=== PATIENT | female | born 1945 | race Caucasian/White ===

== ENCOUNTER → 2017-06-11 08:03 | Outpatient (CLI) | payer MEDICARE, OTHER, SELFPAY ==
[2017-05-22 10:12] VITALS: BP 110/60; BMI 32.5
--- NOTE | 2017-06-11 08:07 | ECHOD_ITS ---
Reason For Study: Valve Replacement Eval Procedure This was a 2D Doppler, Color Flow transthoracic echocardiogram. Exam performed in department. Left Ventricle Normal LV size. Left ventricular systolic function is normal. The estimated ejection fraction is 60 %. Transmitral diastolic flow velocities suggest mild (stage 1) diastolic dysfunction (reversed pattern). No regional wall motion abnormalities noted. Right Ventricle Normal RV size. Normal systolic function. Atria Normal left atrium. Normal right atrium. Mitral Valve Normal mitral valve. Mild (1+) eccentric mitral valve insufficiency. Tricuspid Valve Normal tricuspid valve. Mild (1+) tricuspid valve insufficiency. Pulmonary artery systolic pressure is 27 mmHg. Aortic Valve Peak aortic valve gradient 29 mmHg. Mean aortic valve gradient 15 mmHg. Mild aortic stenosis. Calculated aortic valve area (continuity equation) is 1.7 cm2. Bioprosthetic aortic valve. Stable appearing bioprosthetic aortic valve apparatus. Great Vessels Mildly dilated aortic root. The pulmonary artery is normal size. MMode/2D Measurements & Calculations LVIDd: 5.8 cm IVSd: 1.3 cm LVOT diam: 2.1 cm LVIDs: 3.5 cm LVPWd: 1.1 cm LVOT area: 3.6 cm2 RVDd: 2.6 cm FS: 39.6 % Ao root diam: 3.6 cm LAV(MOD-bp): 49.6 ml LA A4 area: 17.1 cm2 LA dimension: 4.3 cm LAV(MOD-bp) Indexed: 25.4 ml/m2 LAV(MOD-sp2): 48.5 ml LAV(MOD-sp4): 43.3 ml RA A4 area: 12.4 cm2 Doppler Measurements & Calculations MV E max philipp: 94.0 cm/sec Lat Peak E' Philipp: 7.3 cm/sec Med Peak E' Philipp: 4.6 cm/sec MV A max philipp: 104.2 cm/sec E/E' lat: 12.9 E/E' med: 20.5 MV E/A: 0.90 Ao V2 max: 270.1 cm/sec LV V1 max: 121.4 cm/sec SV(LVOT): 111.3 ml Ao max P.2 mmHg LV V1 max P.9 mmHg Ao V2 mean: 185.8 cm/sec LV V1 mean P.5 mmHg Ao mean P.5 mmHg LV V1 mean: 88.7 cm/sec Ao V2 VTI: 63.7 cm LV V1 VTI: 30.7 cm MATTHEW(I,D): 1.7 cm2 MATTHEW(V,D): 1.6 cm2 PA V2 max: 97.8 cm/sec TR max philipp: 238.1 cm/sec TR max P.7 mmHg Interpretation Summary Normal LV size. Left ventricular systolic function is normal. The estimated ejection fraction is 60 %. Transmitral diastolic flow velocities suggest mild (stage 1) diastolic dysfunction (reversed pattern). Mildly dilated aortic root. Stable appearing bioprosthetic aortic valve apparatus. Mild aortic stenosis. Ordering Physician: Angel Fairchild Referring Physician: Neel Ochoa Performed By: Eileen Roth, GUSTAVO, RVT
== END ==
PROVIDERS: Family Provider Family Medicine; PCP Family Medicine; Visit Provider Internal Medicine Cardiovascular Disease
DX: I34.2 Nonrheumatic mitral (valve) stenosis (principal)
CPT/HCPCS: 93306

== ENCOUNTER → 2017-07-18 12:51 | Outpatient (CLI) | payer MEDICARE, OTHER, SELFPAY ==
[2017-07-18 13:18] LABS: Absolute Lymphocyte Count 2.56 X10^3/ul (0.83-4.51); Absolute Neutrophil Count 3.4 X10^3/uL (2.0-7.7); Basophil# 0.02 X10^3/uL; Basophil% 0.3 % (0-1); Eosinophil# 0.26 X10^3/uL; Eosinophils% 3.9 % (0-5); Hematocrit 40.7 % (37-47); Hemoglobin 13.3 g/dl (12.0-15.0); Lymphocyte # 2.56 X10^3/ul (4.0); Lymphocyte % 38.4 % (19-41); Mean Corp Hgb Conc 32.7 g/gl (32-36); Mean Corpuscular Hgb 29.9 pg (27.0-32.0); Mean Corpuscular Volume 91.5 fL (81-99); Neutrophil # 3.41 X10^3/uL (2.7-7.7); Neutrophil % 51.2 % (47-70); Platelet Count 222 K/mm3 (150-450); RBC Distribution Width CV 13.4 % (11.6-14.6); RBC Distribution Width SD 44.5 fl (35.1-43.9); Red Blood Count 4.45 M/mm3 (4.2-5.4); White Blood Count 6.7 K/mm3 (4.4-11.0)
[2017-07-18 13:19] LABS: POSITIVE COUNT NO; POSITIVE DIFFERENTIAL NO; POSITIVE MORPHOLOGY NO
[2017-07-18 13:59] LABS: ALB/GLOB Ratio 0.9 RATIO (0.9-2.4); AST(SGOT) 54 U/L (15-37); Alanine Aminotransfer ALT/SGPT 61 U/L (13-56); Albumin, Serum 3.7 g/dL (3.2-5.0); Alkaline Phosphatase 76 U/L (45-117); Anion Gap 7 (5-15); BUN 10 mg/dL (7-18); BUN/Creat Ratio 15.3 RATIO (10-20); Calcium,Total 8.6 mg/dL (8.5-10.1); Chloride 105 mmol/L (98-107); Cholesterol 213 mg/dL (200); Creatinine, Serum 0.65 mg/dL (0.55-1.02); EST Glomerular Filtration Rate 94 mL/min (>60); Est Glom Filt Rate - Afr Amer 114 mL/min (>60); Globulin 3.9 g/dL (2.2-4.2); Glucose 85 mg/dL (74-106); High Density Lipoprotein 44 mg/dL; Protein, Total 7.6 g/dL (6.4-8.2); Sodium Level 141 mmol/L (136-145); Thyroid Stim Hormone (TSH) 2.67 uIU/mL (0.358-3.74); Triglycerides 190 mg/dL; Very Low Density Lipoprotein 38 mg/dL (5-40)
[2017-07-18 14:34] LABS: Vitamin D,25 Hydroxy 47.3 ng/mL (29.95-100.01)
[2017-07-18 14:35] LABS: Vitamin B12 708 pg/mL (211-911)
== END ==
PROVIDERS: Family Provider Family Medicine; PCP Family Medicine; Visit Provider Internal Medicine Endocrinology, Diabetes & Metabolism
DX: E03.8 Other specified hypothyroidism (principal); E78.2 Mixed hyperlipidemia; E55.9 Vitamin D deficiency, unspecified; E53.8 Deficiency of other specified B group vitamins; E06.3 Autoimmune thyroiditis; R53.83 Other fatigue
CPT/HCPCS: 36415; 80053; 80061; 82306; 82607; 84443; 85025

== ENCOUNTER → 2017-10-29 05:33 | Outpatient (CLI) | payer MEDICARE, OTHER, SELFPAY ==
--- NOTE | 2017-10-29 09:03 | STRESSREP ---
Stress Test Report Pharmacologic myocardial perfusion stress test. 72-year-old lady with a history of valvular heart disease and coronary artery disease. Stress protocol: Resting EKG demonstrates sinus bradycardia with a rate of 54 bpm normal intervals and noted resting blood pressure is 128/70 mmHg. 0.4 mg of regadenoson was infused per usual protocol followed by rapid intravenous saline flush injection continuous EKG monitoring was performed. The maximum heart rate attained was 90 bpm which was 61% of maximum predicted heart rate the maximum workload was 1 metabolic equivalent. At rest there were no ST or T-wave changes noted suggest abnormal flow reserve at peak infusion no ST or T-wave changes were noted to suggest abnormal flow reserve. Resting blood pressure is 128/70 with a final blood pressure 144/70. Myocardial perfusion protocol. 11.4 mCi of technetium 99m sestamibi was injected at rest. 0.4 mg regadenoson was infused per usual protocol. At peak infusion 34.3 mCi of technetium 99m sestamibi was injected stress images were obtained stress and rest images were reconstructed and compared in the short axis vertical long and horizontal long axis. Gated images were also obtained pre- Perfusion SPECT analysis: Review of the stress images demonstrate normal uptake of tracer noted in all areas of the myocardium. The resting images similarly demonstrate normal uptake of tracer noted in all areas of the myocardium. No areas of reversibility are noted suggest ischemia. Gated SPECT analysis: The gated ejection fraction is 68%. Conclusion: Normal pharmacologic myocardial perfusion stress test. Preserved ejection fraction.
--- NOTE | 2017-10-29 09:06 | STRESSREP_ITS ---
Stress Test Report Pharmacologic myocardial perfusion stress test. 72-year-old lady with a history of valvular heart disease and coronary artery disease. Stress protocol: Resting EKG demonstrates sinus bradycardia with a rate of 54 bpm normal intervals and noted resting blood pressure is 128/70 mmHg. 0.4 mg of regadenoson was infused per usual protocol followed by rapid intravenous saline flush injection continuous EKG monitoring was performed. The maximum heart rate attained was 90 bpm which was 61% of maximum predicted heart rate the maximum workload was 1 metabolic equivalent. At rest there were no ST or T- wave changes noted suggest abnormal flow reserve at peak infusion no ST or T- wave changes were noted to suggest abnormal flow reserve. Resting blood pressure is 128/70 with a final blood pressure 144/70. Myocardial perfusion protocol. 11.4 mCi of technetium 99m sestamibi was injected at rest. 0.4 mg regadenoson was infused per usual protocol. At peak infusion 34.3 mCi of technetium 99m sestamibi was injected stress images were obtained stress and rest images were reconstructed and compared in the short axis vertical long and horizontal long axis. Gated images were also obtained pre- Perfusion SPECT analysis: Review of the stress images demonstrate normal uptake of tracer noted in all areas of the myocardium. The resting images similarly demonstrate normal uptake of tracer noted in all areas of the myocardium. No areas of reversibility are noted suggest ischemia. Gated SPECT analysis: The gated ejection fraction is 68%. Conclusion: Normal pharmacologic myocardial perfusion stress test. Preserved ejection fraction.
== END ==
PROVIDERS: Family Provider Family Medicine; PCP Family Medicine; Visit Provider Internal Medicine Cardiovascular Disease
DX: R07.9 Chest pain, unspecified (principal); E78.5 Hyperlipidemia, unspecified; I34.2 Nonrheumatic mitral (valve) stenosis; I35.2 Nonrheumatic aortic (valve) stenosis with insufficiency; Z95.2 Presence of prosthetic heart valve; G47.33 Obstructive sleep apnea (adult) (pediatric)
CPT/HCPCS: 78452; 93017; A9500; A4216; J2785

== ENCOUNTER → 2018-01-26 13:15 | Outpatient (CLI) | payer MEDICARE, OTHER, SELFPAY ==
[2018-01-26 14:54] LABS: ALB/GLOB Ratio 0.9 RATIO (0.9-2.4); AST(SGOT) 61 U/L (15-37); Alanine Aminotransfer ALT/SGPT 81 U/L (13-56); Albumin, Serum 3.5 g/dL (3.2-5.0); Alkaline Phosphatase 67 U/L (45-117); Anion Gap 8 (5-15); BUN 9 mg/dL (7-18); BUN/Creat Ratio 15.9 RATIO (10-20); Calcium,Total 8.7 mg/dL (8.5-10.1); Chloride 108 mmol/L (98-107); Cholesterol 212 mg/dL (200); Creatinine, Serum 0.57 mg/dL (0.55-1.02); EST Glomerular Filtration Rate 111 mL/min (>60); Est Glom Filt Rate - Afr Amer 135 mL/min (>60); Globulin 3.9 g/dL (2.2-4.2); Glucose 92 mg/dL (74-106); High Density Lipoprotein 43 mg/dL; Potassium 4.4 mmol/L (3.5-5.1); Protein, Total 7.4 g/dL (6.4-8.2); Sodium Level 141 mmol/L (136-145); Triglycerides 186 mg/dL; Very Low Density Lipoprotein 37 mg/dL (5-40)
== END ==
PROVIDERS: Family Provider Family Medicine; PCP Family Medicine; Referring Provider Internal Medicine Endocrinology, Diabetes & Metabolism; Visit Provider Internal Medicine Endocrinology, Diabetes & Metabolism
DX: E78.5 Hyperlipidemia, unspecified (principal); E03.8 Other specified hypothyroidism
CPT/HCPCS: 36415; 80053; 80061; 84443

== ENCOUNTER → 2018-01-27 13:49 | Outpatient (CLI) | payer MEDICARE, OTHER, SELFPAY ==
--- NOTE | 2018-01-27 13:59 | RAD_ITS ---
STUDY: X-RAY - PELVIS AND RIGHT HIP REASON FOR EXAM: Female, 72 years old. Right hip pain TECHNIQUE: Radiological exam, hip, unilateral, with pelvis when performed; 2 or 3 views. COMPARISON: None. FINDINGS: There is a non-specific bowel gas pattern. Normal visualized soft tissue structures. Normal bilateral iliac wings, sacroiliac joints and visualized sacrum. Normal bilateral superior and inferior pubic rami. Normal pubic symphysis. Normal bilateral ischial tuberosities. There are osteoarthritic changes of the femoral head with marginal osteophyte formation. Normal acetabulum. There is mild articular joint space narrowing of the hip. RAD/HIP, UNI W/ Pelvis 2-3 Views IMPRESSION: Mild degenerative change of the right hip without acute findings Electronically Signed: Pool Marshall DO at 12:50 EDT Tel , Service support ,
== END ==
PROVIDERS: Family Provider Family Medicine; PCP Family Medicine; Referring Provider Family Medicine; Visit Provider Family Medicine
DX: M16.11 Unilateral primary osteoarthritis, right hip (principal)
CPT/HCPCS: 73502

== ENCOUNTER → 2018-06-08 11:01 | Outpatient (CLI) | payer MEDICARE, OTHER, SELFPAY ==
[2018-05-26 09:56] VITALS: BMI 34.7
[2018-06-08 12:18] LABS: AST(SGOT) 71 U/L (15-37); Alanine Aminotransfer ALT/SGPT 74 U/L (13-56); Albumin, Serum 3.8 g/dL (3.2-5.0); Alkaline Phosphatase 70 U/L (45-117); Anion Gap 9 (5-15); BUN 12 mg/dL (7-18); BUN/Creat Ratio 17.7 RATIO (10-20); Calcium,Total 8.7 mg/dL (8.5-10.1); Chloride 105 mmol/L (98-107); Cholesterol 214 mg/dL (200); Creatinine, Serum 0.68 mg/dL (0.55-1.02); EST Glomerular Filtration Rate 90 mL/min (>60); Est Glom Filt Rate - Afr Amer 109 mL/min (>60); Globulin 3.8 g/dL (2.2-4.2); Glucose 92 mg/dL (74-106); High Density Lipoprotein 42 mg/dL; Potassium 4.1 mmol/L (3.5-5.1); Protein, Total 7.6 g/dL (6.4-8.2); Sodium Level 142 mmol/L (136-145); Triglycerides 196 mg/dL; Very Low Density Lipoprotein 39 mg/dL (5-40)
== END ==
PROVIDERS: Family Provider Family Medicine; PCP Family Medicine; Referring Provider Internal Medicine Endocrinology, Diabetes & Metabolism; Visit Provider Internal Medicine Endocrinology, Diabetes & Metabolism
DX: E03.8 Other specified hypothyroidism (principal); E78.2 Mixed hyperlipidemia
CPT/HCPCS: 36415; 80053; 80061; 84443

== ENCOUNTER → 2018-12-25 13:26 | Outpatient (CLI) | payer MEDICARE, OTHER, SELFPAY ==
[2018-05-26 09:56] VITALS: BMI 34.7
[2018-12-25 15:39] LABS: AST(SGOT) 67 U/L (15-37); Alanine Aminotransfer ALT/SGPT 71 U/L (13-56); Albumin, Serum 3.7 g/dL (3.2-5.0); Alkaline Phosphatase 71 U/L (45-117); Anion Gap 6 (5-15); BUN 11 mg/dL (7-18); BUN/Creat Ratio 16.8 RATIO (10-20); Calcium,Total 8.8 mg/dL (8.5-10.1); Chloride 106 mmol/L (98-107); Creatinine, Serum 0.65 mg/dL (0.55-1.02); EST Glomerular Filtration Rate 94 mL/min (>60); Est Glom Filt Rate - Afr Amer 114 mL/min (>60); Globulin 3.7 g/dL (2.2-4.2); Glucose 77 mg/dL (74-106); Potassium 4.3 mmol/L (3.5-5.1); Protein, Total 7.4 g/dL (6.4-8.2); Sodium Level 142 mmol/L (136-145); Thyroid Stim Hormone (TSH) 2.95 uIU/mL (0.358-3.74)
== END ==
PROVIDERS: Family Provider Family Medicine; PCP Family Medicine
DX: E03.8 Other specified hypothyroidism (principal)
CPT/HCPCS: 36415; 80053; 84443

== ENCOUNTER → 2019-05-18 12:31 | Outpatient (CLI) | payer MEDICARE, OTHER, SELFPAY ==
[2019-05-04 08:48] VITALS: BMI 34.6
--- NOTE | 2019-05-18 12:32 | ECHOD_ITS ---
Reason For Study: Valve Replacement Eval Procedure This was a 2D Doppler, Color Flow transthoracic echocardiogram. Exam performed in department. Left Ventricle Normal LV size. Mild concentric left ventricular hypertrophy. Left ventricular systolic function is normal. The estimated ejection fraction is 55 %. Stage 1 diastolic dysfunction. No regional wall motion abnormalities noted. Right Ventricle Normal RV size. Normal systolic function. Atria The left atrium is mildly enlarged. Normal right atrium. Mitral Valve Normal mitral valve. Tricuspid Valve Normal tricuspid valve. Aortic Valve Peak aortic valve gradient 29 mmHg. Mean aortic valve gradient 15 mmHg. Mild aortic stenosis. Stable appearing bioprosthetic aortic valve apparatus. Pericardium/Pleural No pericardial effusion. MMode/2D Measurements & Calculations LVIDd: 4.8 cm IVSd: 1.3 cm LVOT diam: 2.1 cm LVIDs: 2.9 cm LVPWd: 1.3 cm LVOT area: 3.5 cm2 RVDd: 3.1 cm FS: 39.1 % Ao root diam: 4.0 cm LAV(MOD-bp): 63.9 ml LA dimension: 4.0 cm LA A4 area: 22.7 cm2 LAV(MOD-bp) Indexed: 31.8 ml/m2 LAV(MOD-sp2): 54.7 ml LAV(MOD-sp4): 67.8 ml RA A4 area: 14.2 cm2 Time Measurements MV dec time: 0.37 sec Doppler Measurements & Calculations MV E max philipp: 84.6 cm/sec Lat Peak E' Philipp: 7.7 cm/sec Med Peak E' Philipp: 5.7 cm/sec MV A max philipp: 108.7 cm/sec E/E' lat: 11.0 E/E' med: 14.7 MV E/A: 0.78 MV V2 max: 118.2 cm/sec MV P1/2t max philipp: 98.4 cm/sec Ao V2 max: 271.8 cm/sec MV max P.6 mmHg MV P1/2t: 123.2 msec Ao max P.5 mmHg MV V2 mean: 62.6 cm/sec Ao V2 mean: 186.0 cm/sec MV mean P.9 mmHg MV dec slope: 233.9 cm/sec2 Ao mean P.6 mmHg MV V2 VTI: 50.4 cm MVA(P1/2t): 1.8 cm2 Ao V2 VTI: 68.9 cm MVA(VTI): 2.3 cm2 MATTHEW(I,D): 1.7 cm2 MATTHEW(V,D): 1.7 cm2 LV V1 max: 135.4 cm/sec SV(LVOT): 115.9 ml PA V2 max: 68.4 cm/sec LV V1 max P.3 mmHg LV V1 mean P.6 mmHg LV V1 mean: 85.7 cm/sec LV V1 VTI: 33.3 cm Interpretation Summary Normal LV size. Left ventricular systolic function is normal. The estimated ejection fraction is 55 %. Stage 1 diastolic dysfunction. Mean aortic valve gradient 15 mmHg. Mild aortic stenosis. Stable appearing bioprosthetic aortic valve apparatus. Mild concentric left ventricular hypertrophy. Ordering Physician: Angel Fairchild Referring Physician: Angel Fairchild Performed By: Mitchel Hartley RCS
--- NOTE | 2019-05-18 16:20 | RAD_ITS ---
STUDY: X-RAY - LUMBAR SPINE REASON FOR EXAM: Female, 73 years old. LOWER BACK PAIN RADIATES ACROSS LOWER BACK TECHNIQUE: 3 view(s) of the lumbar spine were obtained. COMPARISON: 04/25/2015. FINDINGS: Normal lumbar lordosis. Possible minimal scoliosis with convexity to the left versus tilted positioning. There is a normal alignment of the vertebrae. There is multilevel endplate spondylosis of the lumbar vertebrae. There is multi-level degenerative disc disease with multi-level disc space narrowing. There is no demonstrated fracture. Multilevel bilateral facet hypertrophic changes noted. There is atherosclerotic calcification of the abdominal aorta without a demonstrated aneurysm. RAD/Lumbar Spine 2 or 3 Views IMPRESSION: Multilevel spondylosis/degenerative disease with no acute fracture or spondylolisthesis. Electronically Signed: Freda Verma MD at 3:56 EST , Service support ,
== END ==
PROVIDERS: PCP Family Medicine; Referring Provider Anesthesiology Pain Medicine; Visit Provider Anesthesiology Pain Medicine
DX: I35.0 Nonrheumatic aortic (valve) stenosis (principal); M54.9 Dorsalgia, unspecified
CPT/HCPCS: 72100; 93306

== ENCOUNTER → 2019-08-10 11:47 | Outpatient (CLI) | payer MEDICARE, OTHER, SELFPAY ==
[2019-05-04 08:48] VITALS: BMI 34.6
[2019-08-10 15:16] LABS: Vitamin D,25 Hydroxy 62.6 ng/mL
[2019-08-10 15:28] LABS: ALB/GLOB Ratio 1.1 RATIO (0.9-2.4); AST(SGOT) 42 U/L (15-37); Alanine Aminotransfer ALT/SGPT 52 U/L (13-56); Albumin, Serum 3.8 g/dL (3.2-5.0); Alkaline Phosphatase 68 U/L (45-117); Anion Gap 7 (5-15); BUN 9 mg/dL (7-18); BUN/Creat Ratio 13.4 RATIO (10-20); Calcium,Total 8.9 mg/dL (8.5-10.1); Chloride 109 mmol/L (98-107); Creatinine, Serum 0.67 mg/dL (0.55-1.02); EST Glomerular Filtration Rate 91 mL/min (>60); Est Glom Filt Rate - Afr Amer 110 mL/min (>60); Globulin 3.6 g/dL (2.2-4.2); Glucose 92 mg/dL (74-106); Protein, Total 7.4 g/dL (6.4-8.2); Sodium Level 142 mmol/L (136-145); Thyroid Stim Hormone (TSH) 0.45 uIU/mL (0.358-3.74)
== END ==
PROVIDERS: PCP Family Medicine; Referring Provider Internal Medicine Endocrinology, Diabetes & Metabolism; Visit Provider Internal Medicine Endocrinology, Diabetes & Metabolism
DX: E03.8 Other specified hypothyroidism (principal); E55.9 Vitamin D deficiency, unspecified
CPT/HCPCS: 36415; 80053; 82306; 84443

== ENCOUNTER → 2020-02-07 07:04 | Outpatient (CLI) | payer MEDICARE, OTHER, SELFPAY ==
[2019-05-04 08:48] VITALS: BMI 34.6
[2020-02-07 09:27] LABS: AST(SGOT) 39 U/L (15-37); Alanine Aminotransfer ALT/SGPT 52 U/L (13-56); Albumin, Serum 3.8 g/dL (3.2-5.0); Alkaline Phosphatase 68 U/L (45-117); Anion Gap 8 (5-15); BUN 10 mg/dL (7-18); BUN/Creat Ratio 14.7 RATIO (10-20); Calcium,Total 9.3 mg/dL (8.5-10.1); Chloride 105 mmol/L (98-107); Cholesterol 230 mg/dL (200); Creatinine, Serum 0.68 mg/dL (0.55-1.02); EST Glomerular Filtration Rate 89 mL/min (>60); Est Glom Filt Rate - Afr Amer 108 mL/min (>60); Globulin 3.8 g/dL (2.2-4.2); Glucose 98 mg/dL (74-106); High Density Lipoprotein 50 mg/dL; Potassium 3.8 mmol/L (3.5-5.1); Protein, Total 7.6 g/dL (6.4-8.2); Sodium Level 141 mmol/L (136-145); Thyroid Stim Hormone (TSH) 8.18 uIU/mL (0.358-3.74); Triglycerides 221 mg/dL; Very Low Density Lipoprotein 44 mg/dL (5-40)
== END ==
PROVIDERS: PCP Family Medicine; Referring Provider Internal Medicine Endocrinology, Diabetes & Metabolism; Visit Provider Internal Medicine Endocrinology, Diabetes & Metabolism
DX: E03.8 Other specified hypothyroidism (principal); E78.2 Mixed hyperlipidemia
CPT/HCPCS: 36415; 80053; 80061; 84443

== ENCOUNTER → 2020-02-23 10:50 | Outpatient (CLI) | payer MEDICARE, OTHER, SELFPAY ==
[2019-05-04 08:48] VITALS: BMI 34.6
--- NOTE | 2020-02-23 10:59 | RAD_ITS ---
STUDY: X-RAY - THORACIC SPINE REASON FOR EXAM: Female, 74 years old. right shoulder pain, limited range of motion, no injury TECHNIQUE: 2 view(s) of the thoracic spine were obtained. COMPARISON: None. FINDINGS: Normal kyphosis of the thoracic spine. There is no substantial scoliosis. Diffuse spondylosis. Prosthetic cardiac valve and median sternotomy wires. RAD/Thoracic Spine 3 Views IMPRESSION: Diffuse spondylosis with normal alignment. Electronically Signed: Robbie Isaacs MD at 22:16 EST Tel , Service support ,
--- NOTE | 2020-02-23 10:59 | RAD_ITS ---
STUDY: X-RAY - CERVICAL SPINE REASON FOR EXAM: Female, 74 years old. right shoulder pain, limited range of motion -- neck pain TECHNIQUE: 5 view(s) of the cervical spine were obtained. COMPARISON: None FINDINGS: Normal anterior atlantoaxial articulation. Normal odontoid process. Normal cervical lordosis. Degenerative disc disease at the C5-6 and C6-7 levels. Normal visualized intervertebral neuroforamina. The soft tissue structures are unremarkable. Median sternotomy wires. RAD/Cerv Spine 4 or 5 Views IMPRESSION: Degenerative disc disease at the C5-6 and C6-7 levels. Electronically Signed: Robbie Isaacs MD at 22:15 EST Tel , Service support ,
== END ==
PROVIDERS: PCP Family Medicine; Referring Provider Family Medicine; Visit Provider Family Medicine
DX: M54.6 Pain in thoracic spine (principal); M54.2 Cervicalgia
CPT/HCPCS: 72050; 72072

== ENCOUNTER → 2020-07-05 10:50 | Outpatient (CLI) | payer MEDICARE, OTHER, SELFPAY ==
[2020-05-09 09:02] VITALS: BMI 32.5
[2020-07-05 11:56] LABS: Vitamin D,25 Hydroxy 55.8 ng/mL
[2020-07-05 12:03] LABS: AST(SGOT) 32 U/L (15-37); Alanine Aminotransfer ALT/SGPT 43 U/L (13-56); Albumin, Serum 3.7 g/dL (3.2-5.0); Alkaline Phosphatase 76 U/L (45-117); Anion Gap 4 (5-15); BUN 13 mg/dL (7-18); BUN/Creat Ratio 21.4 RATIO (10-20); Chloride 106 mmol/L (98-107); Cholesterol 217 mg/dL (200); Creatinine, Serum 0.61 mg/dL (0.55-1.02); EST Glomerular Filtration Rate 102 mL/min (>60); Est Glom Filt Rate - Afr Amer 123 mL/min (>60); Globulin 3.8 g/dL (2.2-4.2); Glucose 94 mg/dL (74-106); High Density Lipoprotein 53 mg/dL; Potassium 3.9 mmol/L (3.5-5.1); Protein, Total 7.5 g/dL (6.4-8.2); Sodium Level 139 mmol/L (136-145); Thyroid Stim Hormone (TSH) 1.07 uIU/mL (0.358-3.74); Triglycerides 194 mg/dL; Very Low Density Lipoprotein 39 mg/dL (5-40)
== END ==
PROVIDERS: PCP Family Medicine; Referring Provider Internal Medicine Endocrinology, Diabetes & Metabolism; Visit Provider Internal Medicine Endocrinology, Diabetes & Metabolism
DX: E03.8 Other specified hypothyroidism (principal); E78.2 Mixed hyperlipidemia; E55.9 Vitamin D deficiency, unspecified
CPT/HCPCS: 36415; 80053; 80061; 82306; 84443

== ENCOUNTER → 2020-12-15 16:34 | Outpatient (CLI) | payer MEDICARE, OTHER, SELFPAY ==
--- NOTE | 2020-12-15 16:37 | RAD_ITS ---
STUDY: X-RAY - PELVIS AND RIGHT HIP REASON FOR EXAM: Female, 75 years old. PAIN- OSTEO TECHNIQUE: 3 views of the pelvis and hip. COMPARISON: 01/27/2018 FINDINGS: There is a non-specific bowel gas pattern. Normal visualized soft tissue structures. Normal bilateral iliac wings, sacroiliac joints and visualized sacrum. Normal bilateral superior and inferior pubic rami. Normal pubic symphysis. Normal bilateral ischial tuberosities. Normal visualized femoral head. Normal acetabulum. There is mild articular joint space narrowing of the hip. RAD/HIP, UNI W/ Pelvis 2-3 Views IMPRESSION: Mild arthrosis. Electronically Signed: Tristan Cano MD at 10:49 EDT Tel , Service support ,
== END ==
PROVIDERS: PCP Family Medicine; Referring Provider Family Medicine; Visit Provider Family Medicine
DX: M16.11 Unilateral primary osteoarthritis, right hip (principal)
CPT/HCPCS: 73502

== ENCOUNTER → 2021-02-12 13:39 | Outpatient (CLI) | payer MEDICARE, OTHER, SELFPAY ==
--- NOTE | 2021-02-12 13:45 | RAD_ITS ---
STUDY: X-RAY - LEFT KNEE REASON FOR EXAM: Female, 75 years old. PAIN AND SWELLING TECHNIQUE: 3 view(s) of the knee. COMPARISON: 04/25/2015 FINDINGS: Please see the impression. RAD/Knee 4 or More Views IMPRESSION: No acute fracture or dislocation in the left knee. Mild to moderate tricompartmental osteoarthritis. Trace suprapatellar joint effusion. Minimal vascular calcification. Electronically Signed: Roberto Sibley MD at 3:47 EDT Tel , Service support ,
== END ==
PROVIDERS: PCP Family Medicine; Referring Provider Family Medicine; Visit Provider Family Medicine
DX: M25.562 Pain in left knee (principal)
CPT/HCPCS: 73564

== ENCOUNTER → 2021-02-20 09:22 | Outpatient (CLI) | payer MEDICARE, OTHER, SELFPAY ==
[2021-02-20 10:39] LABS: ALB/GLOB Ratio 0.9 RATIO (0.9-2.4); AST(SGOT) 54 U/L (15-37); Alanine Aminotransfer ALT/SGPT 60 U/L (13-56); Albumin, Serum 3.7 g/dL (3.2-5.0); Alkaline Phosphatase 74 U/L (45-117); Anion Gap 5 (5-15); BUN 11 mg/dL (7-18); BUN/Creat Ratio 16.1 RATIO (10-20); Calcium,Total 8.8 mg/dL (8.5-10.1); Chloride 104 mmol/L (98-107); Cholesterol 224 mg/dL (200); Creatinine, Serum 0.68 mg/dL (0.55-1.02); EST Glomerular Filtration Rate 89 mL/min (>60); Est Glom Filt Rate - Afr Amer 107 mL/min (>60); Glucose 98 mg/dL (74-106); High Density Lipoprotein 49 mg/dL; Protein, Total 7.7 g/dL (6.4-8.2); Sodium Level 139 mmol/L (136-145); Thyroid Stim Hormone (TSH) 2.66 uIU/mL (0.358-3.74); Triglycerides 217 mg/dL; Very Low Density Lipoprotein 43 mg/dL (5-40)
== END ==
PROVIDERS: PCP Family Medicine; Referring Provider Internal Medicine Endocrinology, Diabetes & Metabolism; Visit Provider Internal Medicine Endocrinology, Diabetes & Metabolism
DX: E03.8 Other specified hypothyroidism (principal); E78.2 Mixed hyperlipidemia
CPT/HCPCS: 36415; 80053; 80061; 84443

== ENCOUNTER 2021-03-30 10:30 | Outpatient (RCR) | payer MEDICARE, OTHER, SELFPAY ==
--- NOTE | 2021-01-05 08:31 | HP.PTEVAL ---
Patient's Visit Information FABRICE MOON is a 75 year old F referred to Physical Therapy by Dr. Yang Vazquez, DO with a diagnosis of LUMBAR SPONDYLOSIS,DDD ,SPINAL STENOSIS WITH BACK & HIP,MILD DJD RIGHT HIP. Date of Evaluation: 01/05/21 Physical Therapist: Jamal Glover, PT, Cert MDT, OCS - Visit Plan Frequency: 2x /Week Duration: 4 Weeks Plan: PT INTERVENTIONS DLS,POSTURAL EX'S, LE FLEXABILITY ,HIP STRENGTHENING AND MODLATIES - Subjective This 75 y/o female presents to physical therapy with lumbar pain and bilateral thighs R> L . Patient has pain pain [address] Vazquez. Did x-rays back DDD and mild hip . MRI showed stenosis retrolisthesis ,DDD, bulging disc. Patient location pain symmetrical LS and anterior thigh. Aggravating factors elevation from chair walking ,standing bending and lifting .Some better with sitting and rest. Pain affects sleeping but has sleep apnea. Scar paresthesia/tingling. Coughing/sneezing -. Bowel/bladder - but does have colitis. Patient has trauma falling on ice many years ago. Patient has seen pain management in past tried injections. Also, seen chiropractor didn't help. Patient pain affects ADLS' and housework tasks. SOCIAL: single. VOCATION: retired - Pain Bilateral Back Pain Intensity (Out of 10): 9 Pain Intensity Range: 10 Bilateral Lower Extremity Pain Intensity (Out of 10): 8 Pain Intensity Range: 10 - Objective POSTURE: mild forward posture. GAIT: reciprocal pattern antalgic gait. NEURO: denies paresthesia/tinging, reflexes L3-4,L4-5,L5-S1 1/3. SYMMTRIES: align. PALAPTION: tender SI ,and IT BAND. LUMBAR ROM: flexion mod loss pain ,extension mod loss, side glides min loss. MMT: quads/hams 4/5,hip flexion 4-/5,hip abduction 3+/5,ankle 4/5. FLEXBILITY: HAMS MILD TIGHT - Special Tests L/S Slump test left side: Negative L/S Slump test right side: Negative L/S Left Straight Leg Raise: Negative L/S Right Straight Leg Raise: Negative Lumbar Standing: Flexion - Mechanical Response: No effect Lumbar Standing: Flexion - Symptoms During Testing: Increases Lumbar Standing: Flexion - Symptoms After Testing: No worse Lumbar Standing: Extension - Mechanical Response: No effect Lumbar Standing: Extension - Symptoms During Testing: Increases Lumbar Standing: Extension - Symptoms After Testing: No worse Lumbar Standing: Right Side Glides - Mechanical Response: No effect Lumbar Standing: Right Side [place] - Symptoms During Testing: No effect Lumbar Standing: Right Side [place] - Symptoms After Testing: No effect Lumbar Standing: Left Side [place] - Mechanical Response: No effect Lumbar Standing: Left Side [place] - Symptoms During Testing: No effect Lumbar Standing: Left Side [place] - Symptoms After Testing: No effect - Balance/Special Test Scores Oswestry Low Back Score: 29 - Goals Goal 1:: I with HEP to manage LBP pain Goal Time Frame: 4-6 Weeks Goal 2:: Normalize gait pattern without antalgic gait. Goal Time Frame: 4-6 Weeks Goal 3:: Patient to improve 60% improvement with decrease pain to improve function Goal Time Frame: 4-6 Weeks Goal 4:: Patient to improve lumbar ROM for function of recovery Goal Time Frame: 4-6 Weeks Goal 5:: Patient to improve back owestry score by 5 points to improve QOL Goal Time Frame: 4-6 Weeks Goal 6:: Patient increase strength hip 4/5 to improve function with gait Goal Time Frame: 4-6 Weeks - Rehabilitation Potential Physical Therapy Diagnosis: This patient has lumbar pain with radicular symptoms in thigh lateral hips with elevation from chair, walking, standing with weakness in hips thus benefit from skilled PT Rehabilitation Potential: Good - Anticipated Interventions Patient/Client Instruction: Educate patient on: Condition, Plan of Care For the Purpose of:: To decrease pain, To increase ROM, To improve muscle performance and motor function, To improve ability to perform ADL's, To increase tolerance to activity/condition/position, To improve performance and independence with ADL's, To improve ability of physical actions for home/community/work/leisure, To improve health of tissue, To decrease soft tissue restriction, To increase flexibility/ROM Therapeutic Exercise to Include: Strength training, Endurance training, Balance training, Body mechanics, Postural training, Flexibilty training, Dynamic Lumbar Stabilization For the Purpose of:: To decrease pain, To increase ROM, To improve muscle performance and motor function, To improve ability to perform ADL's, To increase tolerance to activity/condition/position, To improve ability of physical actions for home/community/work/leisure, To improve health of tissue, To decrease soft tissue restriction, To increase flexibility/ROM, To reduce risk of recurrence TENS: Yes IF ES: Yes Cryotherapy (ice pack, ice massage): Yes Thermo therapy (hot pack): Yes Ultrasound (thermal/non thermal): Yes For the Purpose of:: To decrease pain, To increase ROM, To improve nutrient delivery to tissue, To increase oxygenation perfusion, To improve health of tissue, To decrease soft tissue restriction Thank you for the opportunity to evaluate your patient. For Medicare and Medicare HMO plans, please review the plan of care and approve it. It will need to be FAXED BACK to us at [phone] for Medicare purposes. For Medicare only, by signing this I certify the plan of care. Please let me know if there are questions or concerns regarding this plan of care. Physician Signature: Date:
--- NOTE | 2021-02-27 12:01 | HP.PTREVAL_ITS ---
Dr. Yang Vazquez, DO, It has been my pleasure to treat FABRICE MOON over the last 9 visits for LUMBAR SPONDYLOSIS,DDD ,SPINAL STENOSIS WITH BACK & HIP,MILD DJD RIGHT HIP. Please see the progress note below for an update on the physical therapy plan of care! Subjective: Doing okay. Seen DR recommended cont with PT. X-rayed showed edema DJD. Objective/Function: POSTURE: mild posture. GAIT: reciprocal pattern. MMT: QUADS/HAMS/HIP 4-/5. LUMBAR ROM: flexion mod loss extension mod loss Plan Plan: CONT WITH POC 2XWEEK FOR 4 WEEKS. PT INTERVENTIONS DLS,POSTURAL EX'S, LE FLEXABILITY ,HIP STRENGTHENING AND MODLATIES Balance/Gait/Functional tests - Balance/Special Test Scores Oswestry Low Back Score: 25 Goals Goal 1:: I with HEP to manage LBP pain Goal Time Frame: 4-6 Weeks Goal 2:: Normalize gait pattern without antalgic gait. Goal Time Frame: 4-6 Weeks Goal 3:: Patient to improve 60% improvement with decrease pain to improve function Goal Time Frame: 4-6 Weeks Goal 4:: Patient to improve lumbar ROM for function of recovery Goal Time Frame: 4-6 Weeks Goal 5:: Patient to improve back owestry score by 5 points to improve QOL Goal Time Frame: 4-6 Weeks Goal 6:: Patient increase strength hip 4/5 to improve function with gait Goal Time Frame: 4-6 Weeks Anticipated Interventions Patient/Client Instruction: Educate patient on: Condition, Plan of Care For the Purpose of:: To decrease pain, To increase ROM, To improve muscle p erformance and motor function, To improve ability to perform ADL's, To increase tolerance to activity/condition/position, To improve performance and independence with ADL's, To improve ability of physical actions for home/community/work/leisure, To improve health of tissue, To decrease soft tissue restriction, To increase flexibility/ROM Therapeutic Exercise to Include: Strength training, Endurance training, Balance training, Body mechanics, Postural training, Flexibilty training, Dynamic Lumbar Stabilization For the Purpose of:: To decrease pain, To increase ROM, To improve muscle performance and motor function, To improve ability to perform ADL's, To increase tolerance to activity/condition/position, To improve ability of physical actions for home/community/work/leisure, To improve health of tissue, To decrease soft tissue restriction, To increase flexibility/ROM, To reduce risk of recurrence TENS: Yes IF ES: Yes Cryotherapy (ice pack, ice massage): Yes Thermo therapy (hot pack): Yes Ultrasound (thermal/non thermal): Yes For the Purpose of:: To decrease pain, To increase ROM, To improve nutrient delivery to tissue, To increase oxygenation perfusion, To improve health of tissue, To decrease soft tissue restriction Please do not hesitate to contact me at [phone] by phone or if you have questions or concerns regarding this new plan of care! Sincerely, Jamal Glover, PT, Cert MDT, OCS
--- NOTE | 2021-05-02 09:24 | HP.PT.NRP ---
FABRICE MOON was seen in my office for initial evaluation on 01/05/21. The following Plan of Care was established for this patient: Initial Frequency: 2x /Week Initial Duration: 4 Weeks Patient/Client Instruction: Educate patient on: Condition, Plan of Care For the Purpose of:: To decrease pain, To increase ROM, To improve muscle performance and motor function, To improve ability to perform ADL's, To increase tolerance to activity/condition/position, To improve performance and independence with ADL's, To improve ability of physical actions for home/community/work/leisure, To improve health of tissue, To decrease soft tissue restriction, To increase flexibility/ROM Therapeutic Exercise to Include: Strength training, Endurance training, Balance training, Body mechanics, Postural training, Flexibilty training, Dynamic Lumbar Stabilization For the Purpose of:: To decrease pain, To increase ROM, To improve muscle performance and motor function, To improve ability to perform ADL's, To increase tolerance to activity/condition/position, To improve ability of physical actions for home/community/work/leisure, To improve health of tissue, To decrease soft tissue restriction, To increase flexibility/ROM, To reduce risk of recurrence TENS: Yes IF ES: Yes Cryotherapy (ice pack, ice massage): Yes Thermo therapy (hot pack): Yes Ultrasound (thermal/non thermal): Yes For the Purpose of:: To decrease pain, To increase ROM, To improve nutrient delivery to tissue, To increase oxygenation perfusion, To improve health of tissue, To decrease soft tissue restriction This patient was last seen in our office . Pertinent comments regarding their Physical therapy will appear below: At this point I will be discontinuing this patient from physical therapy. I would be happy to see this patient again in the future if found appropriate by the physician. Thank you! Jamal Glover, PT, Cert MDT, OCS Balance/Gait/Functional tests - Balance/Special Test Scores Oswestry Low Back Score: 14
--- NOTE | 2021-05-02 09:24 | HP.PTDCSUM ---
It has been my pleasure to treat FABRICE MOON referred by Dr. Yang Vazquez DO, with the diagnosis of LUMBAR SPONDYLOSIS,DDD ,SPINAL STENOSIS WITH BACK & HIP,MILD DJD RIGHT HIP for a total of 18 visit(s). Discharge Date: 03/30/21 Please see the following information for a summary of their discharge status. Subjective: Ready for d/c .doing better Bilateral Back Pain Intensity (Out of 10): 2 Bilateral Lower Extremity Pain Intensity (Out of 10): 2 % Improvement: 60 Objective/Function: POSTURE: MILD FORWARD POSTURE. SYMTRIES: ALIGN. PALAPTION: TENDER. LUMBAR ROM: FLEXION MIN LOSS,EXTENSION MIN LOSS,. MMT: quads/hams 4/5,hip flexion 4/5 Goal 1:: I with HEP to manage LBP pain Goal Progress: Goal Met Goal 2:: Normalize gait pattern without antalgic gait. Goal 3:: Patient to improve 60% improvement with decrease pain to improve function Goal Progress: Goal Met Goal 4:: Patient to improve lumbar ROM for function of recovery Goal Progress: Progressing Goal 5:: Patient to improve back owestry score by 5 points to improve QOL Goal Progress: Goal Met Goal 6:: Patient increase strength hip 4/5 to improve function with gait Goal Progress: Goal Met Plan: D/C hep Discharge Comments: HEP If there are questions or concerns regarding this patient's physical therapy, please feel free to call me at [phone]. Thank you for the referral of this patient. Sincerely, Jamal Glover, PT, Cert MDT, OCS Balance/Gait/Functional tests - Balance/Special Test Scores Oswestry Low Back Score: 14
== END 2021-03-30 19:00 | disposition home or self-care (01) ==
LOC: PT 10:30
PROVIDERS: PCP Family Medicine; Referring Provider Orthopaedic Surgery; Visit Provider Orthopaedic Surgery
DX: M47.816 Spondylosis without myelopathy or radiculopathy, lumbar region (principal); M51.36 Other intervertebral disc degeneration, lumbar region; M48.061 Spinal stenosis, lumbar region without neurogenic claudication; M16.11 Unilateral primary osteoarthritis, right hip
CPT/HCPCS: 97035; 97110; 97162; 97530

== ENCOUNTER 2021-05-14 12:20 | Outpatient (CLI) | payer MEDICARE, OTHER, SELFPAY ==
--- NOTE | 2021-05-14 12:21 | ECHOD_ITS ---
Version 2 Reason For Study: Valve Replacement Eval Procedure This was a 2D Doppler, Color Flow transthoracic echocardiogram. Exam performed in department. Left Ventricle Normal LV size. Left ventricular systolic function is normal. The estimated ejection fraction is 60 %. Stage 1 diastolic dysfunction. No regional wall motion abnormalities noted. Right Ventricle Normal RV size. Normal systolic function. Tricuspid Valve Normal tricuspid valve. Mild tricuspid valve insufficiency. Pulmonary artery systolic pressure is 34 mmHg. Aortic Valve Peak aortic valve gradient 43 mmHg. Mean aortic valve gradient 23 mmHg. Mild aortic stenosis. Bioprosthetic aortic valve. Pulmonic Valve Normal pulmonic valve. Mild (1+) pulmonic valve insufficiency. Great Vessels Mild to moderately dilated aortic root. The pulmonary artery is normal size. Normal inferior vena cava. Pericardium/Pleural No pericardial effusion. MMode/2D Measurements & Calculations LVIDd: 5.5 cm IVSd: 1.0 cm LVOT diam: 2.1 cm LVIDs: 3.4 cm LVPWd: 0.97 cm LVOT area: 3.5 cm2 RVDd: 3.1 cm FS: 38.5 % Ao root diam: 4.3 cm LAV(MOD-bp): 50.0 ml LVAd ap4: 28.4 cm2 LAV(MOD-bp) Indexed: 24.8 ml/m2 LVLd ap4: 7.8 cm LAV(MOD-sp2): 56.1 ml EDV(MOD-sp4): 84.1 ml LAV(MOD-sp4): 40.6 ml EDV(sp4-el): 87.7 ml LVAs ap4: 14.2 cm2 LVLs ap4: 6.1 cm ESV(MOD-sp4): 28.0 ml ESV(sp4-el): 28.0 ml EF(MOD-sp4): 66.7 % EF(sp4-el): 68.1 % SV(MOD-sp4): 56.0 ml SV(sp4-el): 59.7 ml LA A4 area: 17.7 cm2 LA dimension(2D): 4.4 cm RA A4 area: 18.0 cm2 Doppler Measurements & Calculations MV E max philipp: 105.8 cm/sec Lat Peak E' Philipp: 7.2 cm/sec Med Peak E' Philipp: 6.3 cm/sec MV A max philipp: 111.1 cm/sec E/E' lat: 14.6 E/E' med: 16.9 MV E/A: 0.95 Ao V2 max: 325.1 cm/sec LV V1 max: 141.3 cm/sec SV(LVOT): 121.3 ml Ao max P.3 mmHg LV V1 max P.0 mmHg Ao V2 mean: 227.9 cm/sec LV V1 mean P.7 mmHg Ao mean P.9 mmHg LV V1 mean: 103.2 cm/sec Ao V2 VTI: 80.1 cm LV V1 VTI: 34.5 cm MATTHEW(I,D): 1.5 cm2 MATTHEW(V,D): 1.5 cm2 PA V2 max: 142.5 cm/sec TR max philipp: 274.9 cm/sec TR max P.2 mmHg ECHO/Echo Complete Interpretation Summary Normal LV size. Left ventricular systolic function is normal. The estimated ejection fraction is 60 %. Stage 1 diastolic dysfunction. Pulmonary artery systolic pressure is 34 mmHg. Mild to moderately dilated aortic root. Bioprosthetic aortic valve. Ordering Physician: Ileana Beltrán Referring Physician: Neel Ochoa Performed By: Eileen Roth RDCS, RVT
== END 2021-05-14 23:59 | disposition short-term general hospital (02) ==
LOC: CVS 12:20
PROVIDERS: PCP Family Medicine; Referring Provider Physician Assistant Medical; Visit Provider Physician Assistant Medical
DX: Q23.1 Congenital insufficiency of aortic valve (principal)
CPT/HCPCS: 93306

== ENCOUNTER → 2021-08-15 | Outpatient (CLI) | payer MEDICARE, OTHER, SELFPAY ==
--- NOTE | 2021-08-15 11:57 | RAD_ITS ---
STUDY: X-RAY - LUMBAR SPINE REASON FOR EXAM: Female, 76 years old. BACK PAIN TECHNIQUE: view(s) of the lumbar spine were obtained. COMPARISON: None FINDINGS: Normal lumbar lordosis. There is no substantial scoliosis. There is a normal alignment of the vertebrae. Normal vertebral bodies and endplates. There is narrowing of the disc space at L5-S1.. The soft tissue structures are unremarkable. RAD/L/S Spine Min 4 Views IMPRESSION: The disc space at L5-S1 is narrowed. Electronically Signed: Olvin Bardales MD at 2:03 EDT ,
--- NOTE | 2021-08-15 11:57 | RAD_ITS ---
STUDY: X-RAY - THORACIC SPINE REASON FOR EXAM: Female, 76 years old. BACK PAIN TECHNIQUE: 3 view(s) of the thoracic spine were obtained. COMPARISON: None. FINDINGS: Please see the impression. RAD/Thoracic Spine 3 Views IMPRESSION: No definite acute fracture or subluxation in the thoracic spine. Moderate to severe multilevel thoracic spondylosis. Mild diffuse osteopenia. Aortic valve prosthesis is in place. Status post median sternotomy. Electronically Signed: Roberto Sibley MD at 16:47 EDT ,
== END | disposition home or self-care (01) ==
LOC: MTRAD 11:55
PROVIDERS: PCP Family Medicine; Referring Provider Family Medicine; Visit Provider Family Medicine
DX: M54.50 Low back pain, unspecified (principal); M54.6 Pain in thoracic spine
CPT/HCPCS: 72072; 72110

== ENCOUNTER → 2021-09-18 | Outpatient (CLI) | payer MEDICARE, OTHER, SELFPAY ==
[2021-09-18 13:08] LABS: ALB/GLOB Ratio 1.1 RATIO (0.9-2.4); AST(SGOT) 19 U/L (15-37); Alanine Aminotransfer ALT/SGPT 26 U/L (13-56); Albumin, Serum 3.7 g/dL (3.2-5.0); Alkaline Phosphatase 68 U/L (45-117); Anion Gap 6 (5-15); BUN 15 mg/dL (7-18); BUN/Creat Ratio 23.8 RATIO (10-20); Calcium,Total 8.7 mg/dL (8.5-10.1); Chloride 107 mmol/L (98-107); Creatinine, Serum 0.63 mg/dL (0.55-1.02); EST Glomerular Filtration Rate 97 mL/min (>60); Est Glom Filt Rate - Afr Amer 118 mL/min (>60); Globulin 3.3 g/dL (2.2-4.2); Glucose 101 mg/dL (74-106); Sodium Level 140 mmol/L (136-145); Thyroid Stim Hormone (TSH) 0.86 uIU/mL (0.358-3.74)
== END | disposition home or self-care (01) ==
LOC: LAB 11:34
PROVIDERS: PCP Family Medicine; Referring Provider Internal Medicine Endocrinology, Diabetes & Metabolism; Visit Provider Internal Medicine Endocrinology, Diabetes & Metabolism
DX: E03.8 Other specified hypothyroidism (principal)
CPT/HCPCS: 36415; 80053; 84443

== ENCOUNTER → 2022-01-18 | Outpatient (CLI) | payer MEDICARE, OTHER, SELFPAY ==
[2022-01-18 15:22] LABS: Absolute Lymphocyte Count 2.13 X10^3/uL (0.83-4.51); Absolute Neutrophil Count 3.3 X10^3/uL (2.0-7.7); Basophil# 0.04 X10^3/uL; Basophil% 0.6 % (0-1); Eosinophil# 0.16 X10^3/uL; Eosinophils% 2.6 % (0-5); Hematocrit 33.5 % (37-47); Hemoglobin 10.5 g/dL (12.0-15.0); Lymphocyte # 2.13 X10^3/ul (0.83-4.51); Lymphocyte % 34.5 % (19-41); Mean Corp Hgb Conc 31.3 g/dL (32-36); Mean Corpuscular Hgb 26.7 pg (27.0-32.0); Mean Corpuscular Volume 85.2 fL (81-99); Mean Platelet Vol. 11.3 fl (6.2-12.0); Monocyte% 8.1 % (0-10); NRBC Flagged by Analyzer 0 % (0-5); Neutrophil # 3.32 X10^3/uL (2.7-7.7); Neutrophil % 53.9 % (47-70); Platelet Count 289 K/mm3 (150-450); RBC Distribution Width CV 14.9 % (11.6-14.6); RBC Distribution Width SD 46.8 fl (35.1-43.9); Red Blood Count 3.93 M/mm3 (4.2-5.4); White Blood Count 6.2 K/mm3 (4.4-11.0)
[2022-01-18 16:48] LABS: Ferritin 9 ng/mL (8-252); Iron 37 ug/dL (50-170); Iron Binding Capacity,Total 555 ug/dL (250-450); PERCENT IRON SATURATION 6.7 % (15.0-55.0)
== END | disposition home or self-care (01) ==
LOC: BFHLAB 13:27
PROVIDERS: PCP Family Medicine; Visit Provider Family Medicine
DX: D64.9 Anemia, unspecified (principal)
CPT/HCPCS: 36415; 82728; 82746; 83540; 83550; 85025

== ENCOUNTER → 2022-02-27 | Outpatient (CLI) | payer MEDICARE, OTHER, SELFPAY ==
--- NOTE | 2022-02-27 11:30 | RAD_ITS ---
STUDY: X-RAY - LEFT FOOT CLINICAL: Female, 76 years old. Pain. TECHNIQUE: 3 view(s) of the foot. COMPARISON: None. FINDINGS: Osteopenia. Inferior calcaneal spurs. Changes of fusion of the subtalar joint, talonavicular joint and calcaneocuboid joint. Moderate arthrosis of the midfoot. Moderate arthrosis of the MTP and IP joints with hammertoe deformities. Normal soft tissues. RAD/Foot min 3 Views IMPRESSION: Osteopenia with postsurgical changes, inferior calcaneal spur and osteoarthritic changes. No acute abnormality or erosive changes. Electronically Signed: Ramy Mascorro, at 12:29 EST ,
== END | disposition home or self-care (01) ==
LOC: MTLAB 11:27 → MTRAD 11:28
PROVIDERS: PCP Family Medicine; Referring Provider Family Medicine; Visit Provider Family Medicine
DX: M79.672 Pain in left foot (principal)
CPT/HCPCS: 73630

== ENCOUNTER → 2022-04-22 | Outpatient (CLI) | payer MEDICARE, OTHER, SELFPAY ==
[2022-04-22 12:06] LABS: Absolute Lymphocyte Count 2.46 X10^3/uL (0.83-4.51); Absolute Neutrophil Count 4.9 X10^3/uL (2.0-7.7); Basophil# 0.05 X10^3/uL; Basophil% 0.6 % (0-1); Eosinophil# 0.08 X10^3/uL; Hematocrit 43.1 % (37-47); Lymphocyte # 2.46 X10^3/ul (0.83-4.51); Lymphocyte % 30.4 % (19-41); Mean Corp Hgb Conc 32.5 g/dL (32-36); Mean Corpuscular Hgb 28.8 pg (27.0-32.0); Mean Corpuscular Volume 88.7 fL (81-99); Mean Platelet Vol. 11.6 fl (6.2-12.0); Monocyte# 0.53 X10^3/uL; Monocyte% 6.6 % (0-10); NRBC Flagged by Analyzer 0 % (0-5); Neutrophil # 4.94 X10^3/uL (2.7-7.7); Neutrophil % 61.2 % (47-70); Platelet Count 265 K/mm3 (150-450); RBC Distribution Width CV 16.1 % (11.6-14.6); RBC Distribution Width SD 52.8 fl (35.1-43.9); Red Blood Count 4.86 M/mm3 (4.2-5.4); White Blood Count 8.1 K/mm3 (4.4-11.0)
[2022-04-22 12:40] LABS: Ferritin 28 ng/mL (8-252); Iron 82 ug/dL (50-170)
== END | disposition home or self-care (01) ==
LOC: BFHLAB 10:42
PROVIDERS: PCP Family Medicine; Visit Provider Family Medicine
DX: D50.9 Iron deficiency anemia, unspecified (principal)
CPT/HCPCS: 36415; 82728; 83540; 85025

== ENCOUNTER → 2022-04-24 | Outpatient (CLI) | payer MEDICARE, OTHER, SELFPAY ==
[2022-04-24 11:06] LABS: AST(SGOT) 20 U/L (15-37); Alanine Aminotransfer ALT/SGPT 31 U/L (13-56); Albumin, Serum 3.7 g/dL (3.2-5.0); Alkaline Phosphatase 70 U/L (45-117); Anion Gap 9 (5-15); BUN 10 mg/dL (7-18); BUN/Creat Ratio 15.7 RATIO (10-20); Chloride 105 mmol/L (98-107); Cholesterol 223 mg/dL (200); Creatinine, Serum 0.64 mg/dL (0.55-1.02); EST Glomerular Filtration Rate 96 mL/min (>60); Est Glom Filt Rate - Afr Amer 116 mL/min (>60); Globulin 3.7 g/dL (2.2-4.2); Glucose 97 mg/dL (74-106); High Density Lipoprotein 50 mg/dL; Potassium 3.9 mmol/L (3.5-5.1); Protein, Total 7.4 g/dL (6.4-8.2); Sodium Level 140 mmol/L (136-145); Triglycerides 240 mg/dL; Very Low Density Lipoprotein 48 mg/dL (5-40)
[2022-04-24 12:48] LABS: Vitamin D,25 Hydroxy 58.6 ng/mL
== END | disposition home or self-care (01) ==
LOC: LAB 08:56
PROVIDERS: PCP Family Medicine; Referring Provider Nurse Practitioner Adult Health; Visit Provider Nurse Practitioner Adult Health
DX: E03.8 Other specified hypothyroidism (principal); E78.2 Mixed hyperlipidemia; E55.9 Vitamin D deficiency, unspecified
CPT/HCPCS: 36415; 80053; 80061; 82306; 84443

== ENCOUNTER → 2022-06-10 | Outpatient (CLI) | payer MEDICARE, OTHER, SELFPAY ==
--- NOTE | 2022-06-10 13:55 | RAD_ITS ---
INDICATION: BILAT HP OA EXAMINATION/TECHNIQUE: X-RAY - XR Hips Bilateral with Pelvis when performed; Min 5 Views COMPARISON: None. FINDINGS: PELVIC BONES: No displaced fracture, destructive or sclerotic lesions. Note that overlapping bowel shadows may however obscure fine detail. Sacroiliac joints are unremarkable. No widening of the pubic symphysis. HIPS: The articular structures are unremarkable. No displaced fracture seen in this frontal view. SOFT TISSUES: No soft tissue swelling or gas. There is narrowing of the medial compartment of the hip joints and bilateral acetabular spurring RAD/Hips B/L min 2 views w/ Pelvis IMPRESSION: No evidence of displaced pelvic or hip fracture. Degenerative changes of the hips. Electronically Signed: Christiano Gibson MD at 21:08 EST ,
== END | disposition home or self-care (01) ==
LOC: RAD 13:48
PROVIDERS: PCP Family Medicine; Referring Provider Anesthesiology Pain Medicine; Visit Provider Anesthesiology Pain Medicine
DX: M16.0 Bilateral primary osteoarthritis of hip (principal)
CPT/HCPCS: 73521

== ENCOUNTER → 2022-06-11 | Outpatient (CLI) | payer MEDICARE, OTHER, SELFPAY ==
--- NOTE | 2022-06-11 06:10 | ECHOD_ITS ---
Reason For Study: CHEST PAIN Procedure This was a 2D Doppler, Color Flow transthoracic echocardiogram. Exam performed in department. Left Ventricle Normal LV size. Mild concentric left ventricular hypertrophy. Left ventricular systolic function is normal. The estimated ejection fraction is 55 %. Stage 2 diastolic dysfunction. No regional wall motion abnormalities noted. Right Ventricle Normal RV size. Normal systolic function. Atria Normal left atrium. Normal right atrium. Mitral Valve Normal mitral valve. Tricuspid Valve Normal tricuspid valve. Mild to moderate (1-2+) tricuspid valve insufficiency. Pulmonary artery systolic pressure is 38 mmHg. Aortic Valve Peak aortic valve gradient 34 mmHg. Mean aortic valve gradient 18 mmHg. Normal prosthetic aortic valve. Pulmonic Valve Normal pulmonic valve. Mild (1+) pulmonic valve insufficiency. Great Vessels Normal aortic root. The pulmonary artery is normal size. Normal inferior vena cava. Pericardium/Pleural No pericardial effusion. MMode/2D Measurements & Calculations LVIDd: 5.5 cm IVSd: 1.3 cm LVOT diam: 2.2 cm LVIDs: 3.3 cm LVPWd: 1.4 cm LVOT area: 3.7 cm2 FS: 41.4 % Ao root diam: 4.1 cm LAV(MOD-sp4): 83.6 ml LVAd ap4: 32.7 cm2 LVLd ap4: 8.9 cm EDV(MOD-sp4): 101.4 ml EDV(sp4-el): 102.0 ml LVAs ap4: 17.9 cm2 LVLs ap4: 6.8 cm ESV(MOD-sp4): 41.0 ml ESV(sp4-el): 39.8 ml EF(MOD-sp4): 59.5 % EF(sp4-el): 60.9 % SV(MOD-sp4): 60.4 ml SV(sp4-el): 62.1 ml LA A4 area: 26.5 cm2 LA dimension(2D): 4.7 cm RA A4 area: 10.9 cm2 Time Measurements MV dec time: 0.25 sec Doppler Measurements & Calculations MV E max philipp: 120.4 cm/sec Lat Peak E' Philipp: 7.0 cm/sec Med Peak E' Philipp: 6.0 cm/sec MV A max philipp: 108.8 cm/sec E/E' lat: 17.1 E/E' med: 20.0 MV E/A: 1.1 MV V2 max: 140.9 cm/sec Ao V2 max: 291.9 cm/sec MV max P.9 mmHg MV dec slope: 490.3 cm/sec2 Ao max P.1 mmHg MV V2 mean: 84.2 cm/sec Ao V2 mean: 198.1 cm/sec MV mean P.3 mmHg Ao mean P.8 mmHg MV V2 VTI: 66.6 cm Ao V2 VTI: 82.8 cm AV (velocity ratio): 0.38 MVA(VTI): 1.8 cm2 MATTHEW(I,D): 1.4 cm2 MATTHEW(V,D): 1.4 cm2 LV V1 max: 110.6 cm/sec MR max philipp: 462.9 cm/sec SV(LVOT): 117.4 ml LV V1 max P.9 mmHg MR max P.7 mmHg LV V1 mean P.4 mmHg LV V1 mean: 88.4 cm/sec LV V1 VTI: 31.8 cm PA V2 max: 120.3 cm/sec TR max philipp: 289.3 cm/sec PA V2 mean: 79.9 cm/sec TR max P.5 mmHg ECHO/Echo Complete Interpretation Summary Normal LV size. Left ventricular systolic function is normal. The estimated ejection fraction is 55 %. Normal prosthetic aortic valve. Mild concentric left ventricular hypertrophy. Stage 2 diastolic dysfunction. Mean aortic valve gradient 18 mmHg. Ordering Physician: Ileana Beltrán Referring Physician: Ileana Beltrán Performed By: Janell Marie RCS
--- NOTE | 2022-06-12 07:01 | STRESSREP ---
Stress Test Report Pharmacologic myocardial perfusion stress test. 77-year-old lady with a history of chest pain and coronary disease Resting EKG demonstrates sinus bradycardia with a rate of 52 bpm. Resting blood pressure is 134/80 mmHg. 0.4 mg of regadenoson was infused per usual protocol followed by rapid intravenous saline flush injection. Continuous EKG monitoring was performed. The maximum heart rate was 60 bpm which was 42% of max impacted heart rate the maximum workload was 1 metabolic equivalent. At rest there were no ST or T wave changes noted to suggest ischemia and at peak infusion nonspecific ST changes were noted which did not meet the criteria for ischemia. No clinical angina is noted. The final blood pressure was 130/70 mmHg. Myocardial perfusion protocol. 10.9 mCi of technetium 99m sestamibi was injected at rest. 0.4 mg of regadenoson was infused per usual protocol. At peak infusion 33 mCi of technetium 99m sestamibi was injected stress images were obtained stress and rest images were reconstructed and compared in the short axis vertical long and horizontal long axis. Gated images were also obtained. Perfusion SPECT analysis: Review of the stress images demonstrate normal uptake of tracer noted in all areas of the myocardium. The resting images similar demonstrated normal uptake of tracer noted in all areas of the myocardium. No areas of reversibility are noted to suggest ischemia and no previous infarct is noted. Gated SPECT analysis: The gated ejection fraction is 74%. Conclusion: Normal pharmacologic myocardial perfusion stress test. Preserved ejection fraction.
== END | disposition home or self-care (01) ==
LOC: CVS 06:00
PROVIDERS: PCP Family Medicine; Referring Provider Physician Assistant Medical; Visit Provider Physician Assistant Medical
DX: R07.9 Chest pain, unspecified (principal)
CPT/HCPCS: 78452; 93017; 93306; A9500; A4216; J2785

== ENCOUNTER 2022-10-16 12:30 | Outpatient (RCR) | payer MEDICARE, OTHER, SELFPAY ==
--- NOTE | 2022-06-03 17:40 | HP.PTEVAL ---
Patient's Visit Information FABRICE MOON is a 76 year old F referred to Physical Therapy by Dr. Lynn Christensen MD with a diagnosis of OVERACTIVE BLADDER AND URGE INCONTINENCE. Date of Evaluation: 06/03/22 Physical Therapist: Jerri Shelley PT, Cert MDT - Visit Plan Frequency: 1x/Week Duration: 8-10 wks Plan: PELVIC FLOOR STRENGTHENING. URINARY RETENTION, URGE AND FREQUENCY EDUCATION. HEALTHY BLADDER HABIT EDUCATION. TRAINING IN COORDINATION OF PELVIC FLOOR MUSCULATURE WITH HIP AND CORE (TRANSVERSE ABDOMINUS) MUSCULATURE. POSTURE CORRECTION/STRENGTHENING. CORE STRENGTHENING. TIERNEY LE ROM, STRETCHING AND STRENGTHENING. TRAINING IN ABDOMINAL CAVITY PRESSURE MGMT WITH ADL'S. - Subjective Work/Leisure: RETIRED. LIVES ALONE. Present symptoms: FREQUENT URINATION AND SOMETIMES HAVING DISCOMFORT IN VAGINAL AREA. FREQUENTLY DOES NOT MAKE IT TO THE BATHROOM IN TIME. BLADDER SPASMS. Present since: YEARS. Pain Scale: WORST 1/10, LEAST 0/10. Currently: 1/10. Is it getting better, worse or staying the same: STARTING TO GET A LITTLE BETTER SINCE HAVING SURGERY AND STARTING MOST RECENT MEDICINE. SURGERY WAS DEC 10, 2021. STARTED NEW MEDICINE MAY 28 2022. Commenced as a result of: NO APPARENT REASON. Symptoms at onset: FREQUENCY AND GETTING UP A LOT AT NIGHT. Worse: PATIENT DOES NOT NO OF ANYTHING IN PARTICULAR. Better: SX AND MEDICINE. Disturbed sleep: YES. GETTING UP ONE TO TWO TIMES A NIGHT TO GO TO THE BATHROOM SINCE STARTING NEW MEDICINE 05/28/22, PRIOR TO THAT WAS GETTING UP 5-6 TIMES A NIGHT. Previous history/Previous treatment: PATIENT REPORTS A LONG HISTORY OF INCONTINENCE AND NO TREATMENT PRIOR TO STARTING TO SEE DR. CHRISTENSEN ABOUT A YEAR AGO. STATES SHE JUST STARTED A 5TH MEDICINE 05/28/22. PATIENT REPORTS DR. CHRISTENSEN REFERRED HER TO ANOTHER SPECIALIST AT [facility] FOR BLADDER SLING WHERE THEY USE ROBOTICS. PATIENT DENIES ANY COMPLICATIONS WITH THE SURGERY AND SHE HAD HER LAST FOLLOW UP THERE IN MAR 2022. BLADDER SUSPENSION AND RECTUM SUSPENSION AT AGE 50. HYSTERECTOMY IN 30'S. LONG HISTORY OF LOW BACK PROBLEMS AND LUMBAR SURGERY IN 30'S. CURRENTLY IN PAIN MGMT WITH DR. MCMAHON WITH NEXT MAXIMINO'T PENDING NEXT WEEK. STATES SHE IS GETTING BAESTROP OF HER VERTEBRAE. Coughing/sneezing/straining: PATIENT REPORTS RARE LEAKING WITH COUGHING AND SNEEZING. Gait: NORMAL BUT LIMITED DUE TO LOW BACK PROBLEMS. Bowel Dysfunction: PATIENT REPORTS SHE DOES HAVE INTERMITTENT BOWEL INCONTINENCE THAT SHE RELATES TO COLITIS - LAST EPISODE WAS ABOUT 2 WKS AGO. Accidents: NO. Unexplained weight loss: NO. Imaging: NONE RECENT OF LOW BACK, PELVIS OR HIPS PER PATIENT REPORT. PMH/Recent major surgery: LOW BACK PROBLEMS. HEART VALVE REPLACEMENT 11 YEARS AGO WITH ECHO AND STRESS TEST PENDING 06/11/22. COLITIS. SLEEP APNEA. HTN. HYPOTHYROIDISM. NOT DIABETIC. NO CANCER. NO CVA. OTHER: WEARING REALLY ABSORBANT PAD AND DEPENDS AND CHANGING APPROX 2 TIMES A DAY. PATIENT REPORTS IT WOULD BE NICE TO BE ABLE TO GO OUT AND NOT HAVE TO WORRY ABOUT NOT MAKING IT TO THE BATHROOM. - Objective Sitting/Standing Posture: POOR. REDUCED LUMBAR LORDOSIS BUT NO RELEVANT LATERAL SHIFT. Active Correction of posture: NE. Other Observations: INDEP SLOW ANTALGIC GAIT INTO PT WITHOUT ANY ASSISTIVE DEVICES OR LOSS OF BALANCE. DECREASED TIERNEY STRIDE LENGTH AND DIFFICULTY RISING FROM SITTING AND THEN DIFFICULTY INITATIING GAIT AFTER SITTING. Sensory deficit: TIERNEY LE LIGHT TOUCH SENSATION IS GROSSLY INTACT AND SYMMETRICAL. ROM deficit: TIGHT TIERNEY HIP ADDUCTORS, HS'S AND GASTROC SOLEUS COMPLEX'S. Motor deficit: TIERNEY LE STRENGTH GROSSLY 4-/5 IN HIPS, KNEES 4/5 AND ANKLE DORSIFLEX 5/5. Reflexes: NT. Dural Signs: NEGATIVE TIERNEY LE'S. Lumbar mvmt loss: flex - MIN. ext - MOD. R SG - FRANCISCO. L SG - FRANCISCO. PATIENT C/O INCREASED LBP WITH LUMBAR ROM TESTING ALL TIMES. Core strength: POOR. Palpation: NO PELVIC EXAM TODAY DUE TO EXTENSIVE HISTORY AND OTHER TESTING. FUNCTIONAL SCREEN: Incontinence Impact Questionnaire Score: 12. Urogenital Distress Inventory Score: 9. TREATMENT: NEUROMUSCULAR REEDUCATION - RETRAINING OF MVMT AND POSTURE FOR SITTING, LYING AND STANDING ACTIVITIES. - Goals Goal 1:: DECREASE URINARY LEAKAGE EPISODES TO ONE OR LESS PER DAY Goal Time Frame: 8-12 Weeks Goal 2:: PATIENT WILL SUCCESSFULLY DELAY VOIDING FOR 10 MINUTES WHEN URGENCY OCCURS WITHOUT PAIN Goal Time Frame: 8-12 Weeks Goal 3:: PATIENT WILL DEMONSTRATE 10 CONSISTENT AND CONSECUTIVE 10 SECOND PELVIC FLOOR MUSCLE CONTRACTIONS TO DEMONSTRATE IMPROVED PELVIC FLOOR ENDURANCE. Goal Time Frame: 8-12 Weeks Goal 4:: DEVELOP HEALTHY FLUID INTAKE HABITS WITH FLUID INTAKE OF ? BODY WEIGHT IN OUNCES PER DAY AND 2/3 BEING WATER. Goal Time Frame: 4-6 Weeks Goal 5:: NORMALIZE VOIDING FREQUENCEY TO EVERY 3-4 HOURS. Goal Time Frame: 8-12 Weeks Goal 6:: PATIENT WILL BE INDEP WITH A HEP/HOME INSTRUCTIONS FOR CONTINUED IMPROVEMENT ONCE FORMAL PHYSICAL THERAPY CONCLUDES. Goal Time Frame: 8-12 Weeks - Anticipated Interventions Patient/Client Instruction: Educate patient on: Condition, Plan of Care, Risk Factors For the Purpose of:: To improve self management Therapeutic Exercise to Include: Strength training, Body mechanics, Postural training, Flexibilty training, Neuromotor development For the Purpose of:: To decrease pain, To increase ROM, To improve muscle performance and motor function, To increase tolerance to activity/condition/position, To improve ability of physical actions for home/community/work/leisure Thank you for the opportunity to evaluate your patient. For Medicare and Medicare HMO plans, please review the plan of care and approve it. It will need to be FAXED BACK to us at [phone] for Medicare purposes. For Medicare only, by signing this I certify the plan of care. Please let me know if there are questions or concerns regarding this plan of care. Physician Signature: Date:
== END 2022-10-16 19:00 | disposition home or self-care (01) ==
LOC: PT 12:30
PROVIDERS: PCP Family Medicine; Referring Provider Urology; Visit Provider Urology
DX: N39.41 Urge incontinence (principal); N32.81 Overactive bladder
CPT/HCPCS: 97162; 97530

== ENCOUNTER → 2022-11-01 | Day surgery (SDC) | payer MEDICARE, OTHER, SELFPAY ==
[2022-10-30 10:52] LABS: Hematocrit 40.4 % (37-47); Hemoglobin 13.2 g/dL (12.0-15.0); Mean Corp Hgb Conc 32.7 g/dL (32-36); Mean Corpuscular Hgb 31.2 pg (27.0-32.0); Mean Corpuscular Volume 95.5 fL (81-99); Mean Platelet Vol. 10.8 fl (6.2-12.0); Platelet Count 216 K/mm3 (150-450); RBC Distribution Width CV 12.9 % (11.6-14.6); RBC Distribution Width SD 44.5 fl (35.1-43.9); Red Blood Count 4.23 M/mm3 (4.2-5.4); White Blood Count 6.2 K/mm3 (4.4-11.0)
[2022-10-30 11:33] LABS: ALB/GLOB Ratio 0.9 RATIO (0.9-2.4); AST(SGOT) 20 U/L (15-37); Alanine Aminotransfer ALT/SGPT 29 U/L (13-56); Albumin, Serum 3.4 g/dL (3.2-5.0); Alkaline Phosphatase 67 U/L (45-117); Anion Gap 6 (5-15); BUN 8 mg/dL (7-18); BUN/Creat Ratio 10.9 RATIO (10-20); Calcium,Total 8.9 mg/dL (8.5-10.1); Chloride 107 mmol/L (98-107); Cholesterol 176 mg/dL (200); Creatinine, Serum 0.74 mg/dL (0.55-1.02); EST Glomerular Filtration Rate 81 mL/min (>60); Est Glom Filt Rate - Afr Amer 98 mL/min (>60); Globulin 3.6 g/dL (2.2-4.2); Glucose 96 mg/dL (74-106); High Density Lipoprotein 46 mg/dL; Potassium 4.4 mmol/L (3.5-5.1); Sodium Level 140 mmol/L (136-145); Thyroid Stim Hormone (TSH) 0.14 uIU/mL (0.358-3.74); Triglycerides 186 mg/dL; Very Low Density Lipoprotein 37 mg/dL (5-40)
[2022-10-31 07:09] VITALS: BMI 30.7
--- NOTE | 2022-11-01 11:49 | PCM.OP.PRO ---
Procedure Report Date of Procedure: 11/01/22 DC cardioversion. 77-year-old lady with a history of aortic valve replacement recent onset atrial fibrillation. Patient has been on therapeutic anticoagulation as well as the study drug for the change A-fib trial. Patient was brought to cardiac catheterization suite in the postabsorptive nonsedated state patient was seen by Dr. Horner of the critical care division. Informed consent was obtained. Anterior-posterior pads were applied. The patient was administered 60 mg of intravenous propofol. 200 J of synchronized biphasic cardioversion energy were applied twice with brief episodes of sinus rhythm but the above did not appear to maintain. Recommendation was to continue current antiarrhythmic and repeat DC cardioversion in approximately a month. Conclusion: Unsuccessful DC cardioversion from atrial fibrillation to sinus rhythm. Follow-up as per office protocol.
--- NOTE | 2022-11-01 15:33 | PCM.OP.PRO ---
Procedure Report Date of Procedure: 11/01/22 CONSCIOUS SEDATION REPORT BRIEF HISTORY OF PRESENT ILLNESS: The patient is a 77-year-old female who presented to [facility] for an elective outpatient cardioversion due to underlying atrial fibrillation. The patient reports no PO intake since midnight, but is currently therapeutic on anticoagulation. The patient does not have a history of ILEANA. The patient reports no history of smoking or COPD. The patient denies any recent constitutional symptoms such as fevers, chills, nausea or vomiting. The patient denies previous applicable anesthetic complications. Patient's last known ejection fraction was 55%. Patient is on Eliquis at the time of the procedure PHYSICAL EXAMINATION: VITAL SIGNS: Reviewed and were acceptable. GENERAL: The patient is a female, in no apparent distress, speaking in full sentences. HEENT: Normocephalic, atraumatic. Mucous membranes are moist and pink. Good mouth opening noted. Trachea is midline. Good neck mobility. MP II CHEST: S1, S2 irregularly irregular. No murmurs, rubs or gallops were noted. LUNGS: Clear to auscultation bilaterally without appreciable wheezes, rales or rhonchi. ABDOMEN: Soft, nontender, nondistended. Positive bowel sounds. EXTREMITIES: There is no clubbing, cyanosis or edema. ASA Class: II DESCRIPTION OF PROCEDURE: After confirmation of informed consent, the patient's anesthesia plan was reviewed in detail. Propofol was chosen. Risks and benefits were reviewed and the patient agreed to proceed. At 11:39 AM, the patient was given 40 mg of propofol. The patient required a total of 60 mg of propofol throughout the procedure to achieve appropriate sedation. The patient achieved an appropriate level of sedation and received 2 attempt s synchronized cardioversion, at [address] Fairchild at the bedside. This was unsuccessful in achieving normal sinus rhythm. The patient was monitored until 11:55 AM, at which time the patient reached their baseline mental status and function. The patient tolerated the procedure well. COMPLICATIONS: Unsuccessful cardioversion ESTIMATED BLOOD LOSS: None RECOMMENDATIONS: Okay to recover in usual fashion. Procedures Pulmonary 9xxxx: [id number] Con Sedation
== END | disposition home or self-care (01) ==
PROVIDERS: Physician Assistant Medical; PCP Family Medicine; Referring Provider Internal Medicine Cardiovascular Disease; Visit Provider Internal Medicine Cardiovascular Disease
DX: I48.91 Unspecified atrial fibrillation (principal); D50.9 Iron deficiency anemia, unspecified; G47.33 Obstructive sleep apnea (adult) (pediatric); I10 Essential (primary) hypertension; E03.9 Hypothyroidism, unspecified; E78.00 Pure hypercholesterolemia, unspecified; Z79.899 Other long term (current) drug therapy; Z95.3 Presence of xenogenic heart valve
CPT/HCPCS: 36415; 80053; 80061; 84443; 85027; 92960; 93005; J7040

== ENCOUNTER → 2022-12-23 | Outpatient (CLI) | payer MEDICARE, OTHER, SELFPAY ==
[2022-12-23 12:26] LABS: Thyroid Stim Hormone (TSH) 5.94 uIU/mL (0.358-3.74)
== END | disposition home or self-care (01) ==
LOC: LAB 10:32
PROVIDERS: PCP Family Medicine; Referring Provider Nurse Practitioner Adult Health; Visit Provider Nurse Practitioner Adult Health
DX: E03.8 Other specified hypothyroidism (principal)
CPT/HCPCS: 36415; 84443

== ENCOUNTER 2022-12-24 10:46 | Day surgery (SDC) | payer MEDICARE, OTHER, SELFPAY ==
--- NOTE | 2022-12-01 08:52 | PCM.HP.BLA ---
History and Physical Date of Admission: 12/24/22 FABRICE MOON, is a 77 F who presents to the cath lab radiological technologist today for a cardioversion. She has a history of aortic valve disease status post aortic valve replacement in 2010 with a bioprosthetic valve. She also has a history of hypertension and hyperlipidemia. She was recently diagnosed with iron deficient anemia. She underwent a cardioversion on 11/22/2022 that was unsuccessful. She was started on Multaq therapy and we will proceed with a repeat cardioversion with antiarrhythmic assistance. Pt has not had any other issues with chest pain. She does have issues with GERD. She does have a hiatal hernia. She does not have any worsening SOB. She is having issues with fatigue and decrease in energy. She does not have any palpitations that she is aware of. She does not have any lightheadedness dizziness. 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: No Is patient in pain?: No Allergies amitriptyline [From Elavil] Adverse Reaction (Severe, Verified 10/03/22 09:50) Unknown tramadol Adverse Reaction (Severe, Verified 10/03/22 09:50) Unknown valdecoxib [From Bextra] Adverse Reaction (Severe, Verified 10/03/22 09:50) Unknown amlodipine Adverse Reaction (Intermediate, Verified 10/03/22 09:50) Foot and ankle edema Medications See EMR [facility] Medical History (Updated 10/03/22 @ 10:58 by Ileana ALEGRE, PA) Bicuspid aortic valve Fibromyalgia Hyperlipidemia Hypothyroidism New onset atrial fibrillation Nonrheumatic aortic (valve) stenosis Obesity Obstructive sleep apnea Surgical History History of ankle surgery History of aortic valve replacement with bioprosthetic valve (10/23/10) History of bladder suspension procedure History of foot surgery History of hysterectomy History of left heart catheterization (09/06/10) History of lumbar surgery Hx of shoulder surgery Family History Father Lung cancerMother Cancer kidney cancer Heart disease PPM Social History Smoking Status: Never smoker ROS Const Const: Negative for fatigue, weakness, headache(s), frequent falls, excessive sweating, weight gain or weight loss Eyes Eyes: Negative for blind spots, loss of peripheral vision, transient loss of vision, blurry vision, change in vision or double vision ENT ENT: Negative for headache(s), dizziness, tinnitus, Nosebleed/epistaxis or balance problems Cardio Chest Pain: No Palpitations: No Edema: Bilateral Muscle aches with walking: None Resp Respiratory: Negative for SOB with activity, SOB at rest, SOB orthopnea\SOB lying down or Cough GI GI: Positive for heartburn; Negative nausea, vomiting, bloating, vomiting blood/hematemesis, bright, red blood in stools or black,tarry stools : Negative for hematuria Musc Musc: Negative for muscle aches/ myalgia, muscle weakness, joint pain or balance problems Skin Skin: Negative rash or wounds Neuro Neuro: Negative for dizziness, lightheadedness, near syncope, syncope, orthostatic symptoms, frequent falls, headache(s), weakness, confusion, memory loss, restless legs, blurry vision or double vision Evan Hematologic/Lymphatic: Negative for easy bleeding or easy bruising Endo Endo: Negative for fatigue, cold intolerance, heat intolerance or excessive sweating Psych Psych: Negative for anxiety or depression Allergy Allergy/Immunology: Negative for rash Cardiology Exam Const Appearance: cooperative, healthy appearing, comfortable, no acute distress and well developed Orientation: alert, awake and oriented x3 Head Head: normal to inspection Ears: hearing grossly normal bilaterally Nose: external nose normal Face and Sinus: face symmetric Mouth: oral mucosae normal, lip normal and moist mucous membranes Eyes General: appearance normal, both eyes and all related structures Eyelids: eyelids normal Conjunctivae: conjunctivae normal Pupils: PERRL EOM: EOM intact bilaterally Neck Neck: normal visual inspection and trachea midline; Negative no JVD Carotids: Negative bruit Chest Chest inspection: normal inspection of the chest Auscultation: Bilateral: Clear to Auscultation Cardio Palpation: normal PMI Rate: regular rate Rhythm: irregularly irregular Heart sounds: S1 normal, S2 normal and murmur; Negative rub or gallop Murmur: Grade 2/6 and harsh GI GI: soft, no hepatosplenomegaly and bowel sounds present Neuro General: patient alert, patient awake, patient oriented x3 and CN's II-XI intact bilaterally Extremities Pulses: Normal: Right Posterior Tibial Pulse, Left Posterior Tibial Pulse, Right Radial Pulse and Left Radial Pulse Lower Extremity Edema: None: Bilateral Psych Psychological: normal affect Supplemental Info Supplemental Information Echocardiogram 2019: Normal LV size. Left ventricular systolic function is normal. The estimated ejection fraction is 55 %. Stage 1 diastolic dysfunction. Mean aortic valve gradient 15 mmHg. Mild aortic stenosis. Stable appearing bioprosthetic aortic valve apparatus. Mild concentric left ventricular hypertrophy. Echocardiogram 05/2022: Normal LV size. Left ventricular systolic function is normal. The estimated ejection fraction is 55 %. Normal prosthetic aortic valve. Mild concentric left ventricular hypertrophy. Stage 2 diastolic dysfunction. Mean aortic valve gradient 18 mmHg. Pharmacologic myocardial perfusion stress test 06/2022 Conclusion: Normal pharmacologic myocardial perfusion stress test. Preserved ejection fraction. Assessment and Plan Assessment and Plan (1) History of aortic valve replacement with bioprosthetic valve: Status: Resolved Comment: Aortic valve replacement with 23-mm Elaina-Pérez pericardial valve. 10/23/2010 Plan: Reviewed echocardiogram from 2022. Valve is stable. She will continue with antibiotic prophylaxis. (2) Essential hypertension: Status: Acute Plan: BP is controlled on current medications. She will not make any adjustments. Pt notes that her edema improved with stopping her Norvasc. (3) Hyperlipidemia: Status: Chronic Qualifiers: Hyperlipidemia type: pure hypercholesterolemia Qualified Code(s): E78.00 - Pure hypercholesterolemia, unspecified; E78.0 - Pure hypercholesterolemia Plan: Elevated, this is managed by endocrine. Did discuss diet. Laboratory Tests 04/24/22 08:58 Cholesterol 223 H LDL Cholesterol 125 HDL Cholesterol 50 (4) New onset atrial fibrillation: Status: Acute Plan: She has a [id number] score of 3. She was started on Eliquis. She underwent cardioversion on 11/01/2022 that was unsuccessful. She was started on Multaq therapy and will undergo a repeat cardioversion. At office appointment, we did discuss with her about the change A-fib trial. She would like to think about this.
[2022-12-23 11:27] LABS: Absolute Lymphocyte Count 3.12 X10^3/uL (0.83-4.51); Absolute Neutrophil Count 3.9 X10^3/uL (2.0-7.7); Basophil# 0.06 X10^3/uL; Basophil% 0.8 % (0-1); Eosinophil# 0.13 X10^3/uL; Eosinophils% 1.7 % (0-5); Hematocrit 43.4 % (37-47); Lymphocyte # 3.12 X10^3/ul (0.83-4.51); Lymphocyte % 40.1 % (19-41); Mean Corp Hgb Conc 32.3 g/dL (32-36); Mean Corpuscular Hgb 30.8 pg (27.0-32.0); Mean Corpuscular Volume 95.4 fL (81-99); Mean Platelet Vol. 10.8 fl (6.2-12.0); Monocyte# 0.56 X10^3/uL; Monocyte% 7.2 % (0-10); NRBC Flagged by Analyzer 0 % (0-5); Neutrophil # 3.89 X10^3/uL (2.7-7.7); Neutrophil % 49.8 % (47-70); Platelet Count 219 K/mm3 (150-450); RBC Distribution Width CV 12.9 % (11.6-14.6); Red Blood Count 4.55 M/mm3 (4.2-5.4); White Blood Count 7.8 K/mm3 (4.4-11.0)
[2022-12-23 12:31] LABS: Anion Gap 6 (5-15); BUN 13 mg/dL (7-18); BUN/Creat Ratio 15.6 RATIO (10-20); Calcium,Total 9.3 mg/dL (8.5-10.1); Chloride 105 mmol/L (98-107); Creatinine, Serum 0.84 mg/dL (0.55-1.02); EST Glomerular Filtration Rate 70 mL/min (>60); Est Glom Filt Rate - Afr Amer 85 mL/min (>60); Glucose 91 mg/dL (74-106); Potassium 4.6 mmol/L (3.5-5.1); Sodium Level 139 mmol/L (136-145)
[2022-12-23 14:17] VITALS: BMI 30.7
--- NOTE | 2022-12-24 10:45 | EKG12_ITS ---
Test Reason : DCCV Blood Pressure : / mmHG Vent. Rate : 083 BPM Atrial Rate : 340 BPM P-R Int : 000 ms QRS Dur : 084 ms QT Int : 364 ms P-R-T Axes : 000 022 178 degrees QTc Int : 427 ms Atrial fibrillation T wave abnormality, consider lateral ischemia or digitalis effect Abnormal ECG No previous ECGs available Confirmed by MICHEL FLEMING, ANGEL ([id number]), publication editor [facility]SE ([id number]) on 01/22/2023 10:34:00 AM Referred By: Angel Fairchild Confirmed By:ANGEL FAIRCHILD MD
--- NOTE | 2022-12-24 12:06 | EKG12_ITS ---
Test Reason : DCCV Blood Pressure : / mmHG Vent. Rate : 085 BPM Atrial Rate : 098 BPM P-R Int : 288 ms QRS Dur : 086 ms QT Int : 404 ms P-R-T Axes : 090 009 142 degrees QTc Int : 480 ms Sinus rhythm with 1st degree A-V block with Premature atrial complexes Nonspecific T wave abnormality Prolonged QT Abnormal ECG When compared with ECG of 24-DEC-2022 10:45, MANUAL COMPARISON REQUIRED, DATA IS UNCONFIRMED Confirmed by MICHEL FLEMING, ANGEL ([id number]), metropolitan editor [facility]SE ([id number]) on 01/22/2023 10:34:32 AM Referred By: Angel Fairchild Confirmed By:ANGEL FAIRCHILD MD
--- NOTE | 2022-12-24 12:33 | PCM.OP.PRO ---
Procedure Report Date of Procedure: 12/24/22 DC cardioversion. 77-year-old lady with a history of valvular heart disease and persistent atrial fibrillation. The patient was brought to the cardiac catheterization lab in the postabsorptive nonsedated state. Patient has been on uninterrupted anticoagulation. The patient was seen by Dr. Dorsey the of the critical care division. Informed consent was obtained. Anterior-posterior pads were applied. The patient was then administered 40 mg of intravenous propofol and 200 J of biphasic synchronized DC cardioversion energy were applied with prompt reversal to sinus rhythm. Patient tolerated the procedure well. Conclusion: Successful DC cardioversion from atrial fibrillation to sinus rhythm. Continue current anticoagulation regimen. Continue current antiarrhythmic regimen. Patient is noted to be in the change A-fib trial.
--- NOTE | 2022-12-24 12:39 | PCM.OP.PRO ---
Procedure Report Date of Procedure: 12/24/22 BRIEF HISTORY OF PRESENT ILLNESS: The patient is a 77-year-old female who presented to [facility] for an elective outpatient cardioversion due to underlying atrial fibrillation. The patient reports no PO intake since midnight, but is currently therapeutic on anticoagulation. The patient does not have a history of ILEANA. The patient reports no history of smoking or COPD. The patient denies any recent constitutional symptoms such as fevers, chills, nausea or vomiting. The patient denies previous applicable anesthetic complications. Patient's last known ejection fraction was 55%. Patient is on Eliquis at the time of the procedure PHYSICAL EXAMINATION: VITAL SIGNS: Reviewed and were acceptable. GENERAL: The patient is a female, in no apparent distress, speaking in full sentences. HEENT: Normocephalic, atraumatic. Mucous membranes are moist and pink. Good mouth opening noted. Trachea is midline. Good neck mobility. MP II CHEST: S1, S2 irregularly irregular. No murmurs, rubs or gallops were noted. LUNGS: Clear to auscultation bilaterally without appreciable wheezes, rales or rhonchi. ABDOMEN: Soft, nontender, nondistended. Positive bowel sounds. EXTREMITIES: There is no clubbing, cyanosis or edema. ASA Class: II DESCRIPTION OF PROCEDURE: After confirmation of informed consent, the patient's anesthesia plan was reviewed in detail. Propofol was chosen. Risks and benefits were reviewed and the patient agreed to proceed. At 12:28 PM, the patient was given 40 mg of propofol. The patient achieved an appropriate level of sedation and received 1 attempt synchronized cardioversion, at [address] Fairchild at the bedside. This was successful in achieving normal sinus rhythm. The patient was monitored until 12:47 PM, at which time the patient reached their baseline mental status and function. The patient tolerated the procedure well. ESTIMATED BLOOD LOSS: None RECOMMENDATIONS: Okay to recover in usual fashion. Procedures Pulmonary 9xxxx: [id number] Con Sedation
== END 2022-12-24 13:35 | disposition home or self-care (01) ==
LOC: CLSP 10:46
PROVIDERS: Physician Assistant Medical; PCP Family Medicine; Referring Provider Internal Medicine Cardiovascular Disease; Visit Provider Internal Medicine Cardiovascular Disease
DX: I48.91 Unspecified atrial fibrillation (principal); K21.9 Gastro-esophageal reflux disease without esophagitis; E03.9 Hypothyroidism, unspecified; E66.9 Obesity, unspecified; I10 Essential (primary) hypertension; G47.33 Obstructive sleep apnea (adult) (pediatric); E78.00 Pure hypercholesterolemia, unspecified; Z79.899 Other long term (current) drug therapy; Z79.01 Long term (current) use of anticoagulants; Z95.3 Presence of xenogenic heart valve
CPT/HCPCS: 36415; 80048; 85025; 92960; 93005; J7040

== ENCOUNTER → 2023-01-30 | Outpatient (CLI) | payer MEDICARE, OTHER, SELFPAY ==
--- NOTE | 2023-01-30 12:15 | CDU_ITS ---
Reason For Study: amaurosis fugax Rt. Velocities/BP Lt. Velocities/BP Prox CCA 57.9/10.7 cm/sec. Prox CCA 75.1/19.0 cm/sec. Mid CCA 70.2/14.5 cm/sec. Mid CCA 57.5/10.2 cm/sec. Dist CCA 68.3/10.7 cm/sec. Dist CCA 60.8/15.7 cm/sec. Prox ICA 63.6/16.3 cm/sec. Prox ICA 38.8/10.2 cm/sec. Mid ICA 76.8/22.0 cm/sec. Mid ICA 97.1/23.4 cm/sec. Dist ICA 86.1/22.3 cm/sec. Dist ICA 79.6/19.9 cm/sec. Rt. ICA/CCA = 1.2. Lt. ICA/CCA = 1.7. Prox ECA 78.7/8.8 cm/sec. Prox ECA 76.2/6.9 cm/sec. Rt. Vert. 70.7/13.5 cm/sec. Lt. Vert. 33.3/3.6 cm/sec. Right Extracranial There is homogeneous, smooth atherosclerotic plaque noted in the right common carotid artery. There is heterogeneous, irregular atherosclerotic plaque noted in the right internal carotid artery. There is intimal thickening but no significant atherosclerotic plaque noted in the right external carotid artery. Antegrade flow is noted in the right vertebral artery. Left Extracranial There is intimal thickening but no significant atherosclerotic plaque noted in the left common carotid artery. There is intimal thickening but no significant atherosclerotic plaque noted in the left internal carotid artery. There is intimal thickening but no significant atherosclerotic plaque noted in the left external carotid artery. Antegrade flow is noted in the left vertebral artery. Procedure Carotid Duplex [id number]. This is a Carotid Duplex examination using B-mode, color flow and specral Doppler. The exam was diagnostic. Exam performed in department. VL/Carotid Duplex Ultrasound Interpretation Summary Mild (<50%) stenosis right extracranial internal carotid. Normal left extracranial internal carotid. Patent and antegrade vertebrals bilaterally. Ordering Physician: Neel Ochoa Performed By: Zach Salomon RVT
== END | disposition home or self-care (01) ==
LOC: CVS 12:14
PROVIDERS: PCP Family Medicine; Referring Provider Family Medicine; Visit Provider Family Medicine
DX: G45.3 Amaurosis fugax (principal)
CPT/HCPCS: 93880

== ENCOUNTER → 2023-02-28 | Outpatient (CLI) | payer MEDICARE, OTHER, SELFPAY ==
[2023-02-28 10:12] LABS: AST(SGOT) 18 U/L (15-37); Alanine Aminotransfer ALT/SGPT 27 U/L (13-56); Albumin, Serum 3.8 g/dL (3.2-5.0); Alkaline Phosphatase 65 U/L (45-117); Anion Gap 5 (5-15); BUN 15 mg/dL (7-18); BUN/Creat Ratio 17.7 RATIO (10-20); Calcium,Total 9.2 mg/dL (8.5-10.1); Chloride 103 mmol/L (98-107); Creatinine, Serum 0.85 mg/dL (0.55-1.02); EST Glomerular Filtration Rate 69 mL/min (>60); Est Glom Filt Rate - Afr Amer 83 mL/min (>60); Globulin 3.7 g/dL (2.2-4.2); Glucose 99 mg/dL (74-106); Potassium 4.3 mmol/L (3.5-5.1); Protein, Total 7.5 g/dL (6.4-8.2); Sodium Level 138 mmol/L (136-145); Thyroid Stim Hormone (TSH) 2.64 uIU/mL (0.358-3.74)
== END | disposition home or self-care (01) ==
LOC: LAB 08:41
PROVIDERS: PCP Family Medicine; Referring Provider Internal Medicine Endocrinology, Diabetes & Metabolism; Visit Provider Internal Medicine Endocrinology, Diabetes & Metabolism
DX: E03.8 Other specified hypothyroidism (principal)
CPT/HCPCS: 36415; 80053; 84443

== ENCOUNTER → 2023-07-01 | Outpatient (CLI) | payer MEDICARE, OTHER, SELFPAY ==
[2023-07-01 14:20] LABS: AST(SGOT) 18 U/L (15-37); Alanine Aminotransfer ALT/SGPT 30 U/L (13-56); Albumin, Serum 3.8 g/dL (3.2-5.0); Alkaline Phosphatase 70 U/L (45-117); Anion Gap 7 (5-15); BUN 13 mg/dL (7-18); BUN/Creat Ratio 17.9 RATIO (10-20); Calcium,Total 9.1 mg/dL (8.5-10.1); Chloride 106 mmol/L (98-107); Creatinine, Serum 0.73 mg/dL (0.55-1.02); EST Glomerular Filtration Rate 82 mL/min (>60); Est Glom Filt Rate - Afr Amer 99 mL/min (>60); Globulin 3.9 g/dL (2.2-4.2); Glucose 98 mg/dL (74-106); Potassium 4.1 mmol/L (3.5-5.1); Protein, Total 7.7 g/dL (6.4-8.2); Sodium Level 142 mmol/L (136-145); Thyroid Stim Hormone (TSH) 1.08 uIU/mL (0.358-3.74)
== END | disposition home or self-care (01) ==
LOC: LAB 12:57
PROVIDERS: PCP Family Medicine; Referring Provider Nurse Practitioner Adult Health; Visit Provider Nurse Practitioner Adult Health
DX: E03.8 Other specified hypothyroidism (principal)
CPT/HCPCS: 36415; 80053; 84443

== ENCOUNTER → 2023-08-21 | Outpatient (CLI) | payer MEDICARE, OTHER, SELFPAY ==
[2023-08-21 09:20] LABS: Anion Gap 4 (5-15); BUN 19 mg/dL (7-18); BUN/Creat Ratio 25.7 RATIO (10-20); Calcium,Total 9.3 mg/dL (8.5-10.1); Chloride 105 mmol/L (98-107); Creatinine, Serum 0.74 mg/dL (0.55-1.02); EST Glomerular Filtration Rate 81 mL/min (>60); Est Glom Filt Rate - Afr Amer 98 mL/min (>60); Glucose 111 mg/dL (74-106); Sodium Level 138 mmol/L (136-145)
== END | disposition home or self-care (01) ==
LOC: LAB 07:51
PROVIDERS: PCP Family Medicine; Referring Provider Physician Assistant Medical; Visit Provider Physician Assistant Medical
DX: I48.0 Paroxysmal atrial fibrillation (principal); M79.89 Other specified soft tissue disorders
CPT/HCPCS: 36415; 80048

== ENCOUNTER → 2023-12-09 | Outpatient (CLI) | payer MEDICARE, OTHER, SELFPAY ==
[2023-12-09 14:55] LABS: ALB/GLOB Ratio 0.9 RATIO (0.9-2.4); AST(SGOT) 25 U/L (15-37); Alanine Aminotransfer ALT/SGPT 39 U/L (13-56); Albumin, Serum 3.6 g/dL (3.2-5.0); Alkaline Phosphatase 73 U/L (45-117); Anion Gap 8 (5-15); BUN 14 mg/dL (7-18); BUN/Creat Ratio 17.5 RATIO (10-20); Calcium,Total 9.7 mg/dL (8.5-10.1); Chloride 107 mmol/L (98-107); Cholesterol 225 mg/dL (200); EST Glomerular Filtration Rate 73 mL/min (>60); Est Glom Filt Rate - Afr Amer 89 mL/min (>60); Globulin 3.8 g/dL (2.2-4.2); Glucose 95 mg/dL (74-106); High Density Lipoprotein 49 mg/dL; Potassium 4.2 mmol/L (3.5-5.1); Protein, Total 7.4 g/dL (6.4-8.2); Sodium Level 141 mmol/L (136-145); Thyroid Stim Hormone (TSH) 0.626 uIU/mL (0.358-3.740); Triglycerides 252 mg/dL; Very Low Density Lipoprotein 50 mg/dL (5-40)
== END | disposition home or self-care (01) ==
LOC: LAB 12:07
PROVIDERS: PCP Family Medicine; Referring Provider Internal Medicine Endocrinology, Diabetes & Metabolism; Visit Provider Internal Medicine Endocrinology, Diabetes & Metabolism
DX: E03.8 Other specified hypothyroidism (principal); E78.2 Mixed hyperlipidemia
CPT/HCPCS: 36415; 80053; 80061; 84443

== ENCOUNTER → 2023-12-30 | Outpatient (CLI) | payer MEDICARE, OTHER, SELFPAY | END | disposition home or self-care (01) | LOC: LAB 14:31 | PROVIDERS: PCP Family Medicine; Referring Provider Internal Medicine Endocrinology, Diabetes & Metabolism; Visit Provider Internal Medicine Endocrinology, Diabetes & Metabolism | DX: E03.8 Other specified hypothyroidism (principal) | CPT/HCPCS: 36415; 84443 ==

== ENCOUNTER → 2024-01-29 | Outpatient (CLI) | payer MEDICARE, OTHER, SELFPAY ==
[2024-01-29 15:23] LABS: Thyroid Stim Hormone (TSH) 0.818 uIU/mL (0.358-3.740)
== END | disposition home or self-care (01) ==
LOC: LAB 14:28
PROVIDERS: PCP Family Medicine; Referring Provider Internal Medicine Endocrinology, Diabetes & Metabolism; Visit Provider Internal Medicine Endocrinology, Diabetes & Metabolism
DX: E03.8 Other specified hypothyroidism (principal)
CPT/HCPCS: 36415; 84443

== ENCOUNTER → 2024-04-27 | Outpatient (CLI) | payer MEDICARE, OTHER, SELFPAY ==
[2024-04-27 15:27] LABS: Vitamin D,25 Hydroxy 43.8 ng/mL
[2024-04-27 15:48] LABS: AST(SGOT) 25 U/L (15-37); Alanine Aminotransfer ALT/SGPT 30 U/L (13-56); Albumin, Serum 3.8 g/dL (3.2-5.0); Alkaline Phosphatase 80 U/L (45-117); Anion Gap 7 (5-15); BUN 10 mg/dL (7-18); BUN/Creat Ratio 13.9 RATIO (10-20); Calcium,Total 9.5 mg/dL (8.5-10.1); Chloride 105 mmol/L (98-107); Creatinine, Serum 0.72 mg/dL (0.55-1.02); EST Glomerular Filtration Rate 83 mL/min (>60); Est Glom Filt Rate - Afr Amer 100 mL/min (>60); Globulin 3.9 g/dL (2.2-4.2); Glucose 95 mg/dL (74-106); Potassium 4.3 mmol/L (3.5-5.1); Protein, Total 7.7 g/dL (6.4-8.2); Sodium Level 139 mmol/L (136-145)
== END | disposition home or self-care (01) ==
LOC: MTLAB 11:03
PROVIDERS: PCP Family Medicine; Referring Provider Internal Medicine Endocrinology, Diabetes & Metabolism; Visit Provider Internal Medicine Endocrinology, Diabetes & Metabolism
DX: E03.8 Other specified hypothyroidism (principal); E55.9 Vitamin D deficiency, unspecified
CPT/HCPCS: 36415; 80053; 82306; 84443

== ENCOUNTER 2024-06-08 10:00 | Outpatient (RCR) | payer MEDICARE, OTHER, SELFPAY ==
--- NOTE | 2024-05-12 15:56 | HP.PTEVAL ---
Patient's Visit Information Visit Information Visit Information: FABRICE MOON is a 78 year old F referred to Physical Therapy by Dr. Rene Lomax MD with a diagnosis of BACK PAIN. Date of Evaluation: 05/12/24 Physical Therapist: Jamal Glover, PT, Cert MDT, OCS Visit Plan Frequency: 2x /Week Duration: 4 Weeks Plan: PT INTERVENTIONS DLS ,POSTURAL EX'S ,LE FLEXABILITY ,ACTIVITY MODIFICATION AND MODALITIES' Subjective Subjective: This 78 y/o female presents to physical therapy with lumbar pain. Patient has had back pain for many years. Patient had lumbar discectomy at 31 y/o. Patient seen DR Aguilera and had epidural injections. Patient has had last injection ~ 3 months ago.Patient recently diagnosed with A-FIB. Patient has had pain located LS and to lateral hip. Aggravating factors sitting ,bending ,walkin/standing 5 . Alleviating factors rest. Denies paresthesia/tingling. Bowel/bladder -. Patient sleeping affects pain. Patient has had PT in past. Patient had MRI and imaging ~ 1 year ago.Patient had no recent imaging adn prescribed oxycodone. Patient condition affects QOL and function. Patient goals to decrease pain. SOCAIL: single VOCATION: retired Pain Left: Pain Intensity (Out of 10): 7 Right Back: Pain Intensity (Out of 10): 7 Objective Objective: POSTURE: mild forward posture GAIT: reciprocal pattern mild forward posture NEURO: denies paresthesia/tingling PALAPTION: unremarkable MMT: quads/hams 4/5 ,hip flexion 4-/5 ,ankle 4/5 LUMBAR ROM: flexion min loss ,extension mod loss ,side glides mod loss FLEXABILITY: hamstrings min tight Special Tests L/S Slump test left side: Negative L/S Slump test right side: Negative L/S Left Straight Leg Raise: Negative L/S Right Straight Leg Raise: Negative Balance/Special Test Scores Oswestry Low Back Score: 29 Goals Goal 1:: Patient to be I with back Goal Time Frame: 4-6 Weeks Goal 2:: Patient to demonstrate 50% improvement with less pain and improved function Goal Time Frame: 4-6 Weeks Goal 3:: Patient to improve lumbar ROM for function of recovery to put on shoes and ASDLS Goal Time Frame: 4-6 Weeks Goal 4:: Patient improve back oswestry score by 5 points to improve QOL and function. Goal Time Frame: 4-6 Weeks Rehabilitation Potential Physical Therapy Diagnosis: This patient has lumbar pain with radicular symptoms left hip many years and h/o lumbar surgery many years ago with current pain with positioning worse with walking/standing thus benefit from skilled PT Rehabilitation Potential: Fair Anticipated Interventions Patient/Client Instruction: Educate patient on: Condition and Plan of Care For the Purpose of:: To decrease pain, To increase ROM, To improve muscle performance and motor function, To improve ability to perform ADL's, To increase tolerance to activity/condition/position, To improve ability of physical actions for home/community/work/leisure, To improve health of tissue, To decrease soft tissue restriction and To increase flexibility/ROM Therapeutic Exercise to Include: Strength training, Endurance training, Balance training, Postural training, Flexibilty training and Dynamic Lumbar Stabilization For the Purpose of:: To decrease pain, To increase ROM, To increase oxygenation perfusion, To improve ability to perform ADL's, To improve ability of physical actions for home/community/work/leisure, To improve health of tissue, To decrease soft tissue restriction and To increase flexibility/ROM TENS: Yes IF ES: Yes Cryotherapy (ice pack, ice massage): Yes Thermo therapy (hot pack): Yes Ultrasound (thermal/non thermal): Yes For the Purpose of:: To decrease pain, To increase ROM, To improve nutrient delivery to tissue, To increase oxygenation perfusion, To improve health of tissue and To decrease soft tissue restriction Text: Thank you for the opportunity to evaluate your patient. For Medicare and Medicare HMO plans, please review the plan of care and approve it. It will need to be FAXED BACK to us at [phone] for Medicare purposes. For Medicare only, by signing this I certify the plan of care. Please let me know if there are questions or concerns regarding this plan of care. Physician Signature: Date:
--- NOTE | 2024-06-08 10:32 | HP.PTDCSUM ---
Discharge Summary D/C summary: It has been my pleasure to treat FABRICE MOON referred by Dr. Rene Lomax MD, with the diagnosis of BACK PAIN for a total of 8 visit(s). Discharge Date: 06/08/24 Please see the following information for a summary of their discharge status. Subjective Subjective: Sees Dr Aguilera next month Pt had Tens Unit at home Injections have not helped Pain Left: Pain Intensity (Out of 10): 6 Right Back: Pain Intensity (Out of 10): 6 Overall Improvement % Improvement: 20 Objective Objective/Function: POSTURE: mild forward posture GAIT: reciprocal pattern mild forward posture NEURO: denies paresthesia/tingling PALAPTION: unremarkable MMT: quads/hams 4/5 ,hip flexion 4-/5 ,ankle 4/5 LUMBAR ROM: flexion min loss ,extension mod loss ,side glides mod loss FLEXABILITY: hamstrings min tight Goals Goal 1:: Patient to be I with back Goal Progress: Progressing Goal 2:: Patient to demonstrate 50% improvement with less pain and improved function Goal Progress: Progressing Goal 3:: Patient to improve lumbar ROM for function of recovery to put on shoes and ASDLS Goal Progress: Progressing Goal 4:: Patient improve back oswestry score by 5 points to improve QOL and function. Goal Progress: Progressing Goal Progress: Progressing Plan Plan: d/c to HEP D/C Information d/c sentence: If there are questions or concerns regarding this patient's physical therapy, please feel free to call me at [phone]. Thank you for the referral of this patient. Sincerely, Jamal Glover, PT, Cert MDT, OCS Balance/Gait/Functional tests Balance/Special Test Scores Oswestry Low Back Score: 29 Improvement % Improvement: 20
== END 2024-06-08 19:00 | disposition home or self-care (01) ==
LOC: PT 10:00
PROVIDERS: PCP Family Medicine; Referring Provider Anesthesiology Pain Medicine; Visit Provider Anesthesiology Pain Medicine
DX: M54.9 Dorsalgia, unspecified (principal); R26.89 Other abnormalities of gait and mobility
CPT/HCPCS: 97110; 97162; 97530

== ENCOUNTER → 2024-06-17 | Outpatient (CLI) | payer MEDICARE, OTHER, SELFPAY ==
[2024-06-17 14:52] LABS: Anion Gap 13 (5-15); BUN 13 mg/dL (4-19); BUN/Creat Ratio 17.3 RATIO (10-20); Calcium,Total 9.7 mg/dL (7.6-11.0); Carbon Dioxide 24.8 mmol/L (21.0-32.0); Chloride 102 mmol/L (98-108); Creatinine, Serum 0.75 mg/dL (0.70-1.20); EST Glomerular Filtration Rate 80 (>60); Glucose 97 mg/dL (70-99); Potassium 4.3 mmol/L (3.3-5.1); Sodium Level 140 mmol/L (133-145); Uric Acid 6.6 mg/dL (2.6-6.0)
== END | disposition home or self-care (01) ==
LOC: MTLAB 12:35
PROVIDERS: PCP Family Medicine; Referring Provider Podiatrist; Visit Provider Podiatrist
DX: M10.471 Other secondary gout, right ankle and foot (principal)
CPT/HCPCS: 36415; 80048; 84550

== ENCOUNTER → 2024-06-28 | Outpatient (CLI) | payer MEDICARE, OTHER, SELFPAY ==
[2024-06-28 12:52] LABS: Absolute Lymphocyte Count 2.16 X10^3/uL (0.83-4.51); Basophil# 0.05 X10^3/uL; Basophil% 0.6 % (0-1); Eosinophils% 1.3 % (0-5); Hematocrit 39.7 % (37-47); Hemoglobin 13.2 g/dL (12.0-15.0); Lymphocyte # 2.16 X10^3/ul (0.83-4.51); Lymphocyte % 27.7 % (19-41); Mean Corp Hgb Conc 33.2 g/dL (32-36); Mean Corpuscular Hgb 30.4 pg (27.0-32.0); Mean Corpuscular Volume 91.5 fL (81-99); Mean Platelet Vol. 10.7 fl (6.2-12.0); Monocyte# 0.48 X10^3/uL; Monocyte% 6.1 % (0-10); NRBC Flagged by Analyzer 0 % (0-5); Neutrophil # 4.99 X10^3/uL (2.7-7.7); Neutrophil % 63.9 % (47-70); Platelet Count 217 K/mm3 (150-450); RBC Distribution Width CV 12.8 % (11.6-14.6); RBC Distribution Width SD 42.5 fl (35.1-43.9); Red Blood Count 4.34 M/mm3 (4.2-5.4); White Blood Count 7.8 K/mm3 (4.4-11.0)
[2024-06-28 13:38] LABS: Ferritin 96 ng/mL (22-378); Iron 81 ug/dL (50-170)
== END | disposition home or self-care (01) ==
LOC: BFHLAB 10:15
PROVIDERS: PCP Family Medicine; Visit Provider Family Medicine
DX: D50.9 Iron deficiency anemia, unspecified (principal)
CPT/HCPCS: 36415; 82728; 83540; 85025

== ENCOUNTER → 2024-07-22 | Outpatient (CLI) | payer MEDICARE, OTHER, SELFPAY ==
--- NOTE | 2024-07-22 09:45 | ECHOD_ITS ---
Reason For Study Reason For Study: VALVE REPLACEMENT Procedure This was a 2D Doppler, Color Flow transthoracic echocardiogram. Exam performed in department. Left Ventricle Normal LV size. Moderate concentric left ventricular hypertrophy. Left ventricular systolic function is normal. The left ventricular ejection fraction is 65 %. No regional wall motion abnormalities noted. Right Ventricle Normal RV size. Normal systolic function. Atria Normal left atrium. Normal right atrium. Mitral Valve Normal mitral valve. Tricuspid Valve Normal tricuspid valve. Aortic Valve Peak aortic valve gradient 31 mmHg. Mean aortic valve gradient 18 mmHg. Bioprosthetic aortic valve. Pulmonic Valve Normal pulmonic valve. Great Vessels Normal aortic root. The pulmonary artery is normal size. Inferior vena cava collapse with respiration. Pericardium/Pleural No pericardial effusion. MMode/2D Measurements & Calculations LVIDd: 4.2 cm IVSd: 1.5 cm Ao root diam: 4.0 cm LVIDs: 3.5 cm LVPWd: 1.7 cm RVDd: 2.7 cm FS: 16.6 % LAV(MOD-bp): 63.0 ml LVAd ap4: 32.3 cm2 SV(MOD-sp4): 64.1 ml LAV(MOD-bp) Indexed: 31.6 ml/m2 LVLd ap4: 8.6 cm SI(MOD-sp4): 32.1 ml/m2 LAV(MOD-sp2): 51.7 ml EDV(MOD-sp4): 100.2 ml LAV(MOD-sp4): 67.6 ml EDV(sp4-el): 102.3 ml LVAs ap4: 16.0 cm2 LVLs ap4: 6.8 cm ESV(MOD-sp4): 36.2 ml ESV(sp4-el): 31.8 ml EF(MOD-sp4): 63.9 % EF(sp4-el): 68.9 % SV(sp4-el): 70.5 ml LA A4 area: 23.1 cm2 RA A4 area: 13.9 cm2 Time Measurements MV dec time: 0.29 sec Doppler Measurements & Calculations MV E max philipp: 109.6 cm/sec Lat Peak E' Philipp: 9.3 cm/sec Med Peak E' Philipp: 6.3 cm/sec MV A max philipp: 106.4 cm/sec E/E' lat: 11.8 E/E' med: 17.3 MV E/A: 1.0 MV V2 max: 119.8 cm/sec Ao V2 max: 281.0 cm/sec MV max P.7 mmHg MV dec slope: 382.6 cm/sec2 Ao max P.6 mmHg MV V2 mean: 56.9 cm/sec Ao V2 mean: 200.3 cm/sec MV mean P.7 mmHg Ao mean P.0 mmHg MV V2 VTI: 51.1 cm Ao V2 VTI: 76.3 cm AV (velocity ratio): 0.64 LV V1 max: 175.4 cm/sec PA V2 max: 112.5 cm/sec LV V1 max P.3 mmHg PA V2 mean: 72.5 cm/sec LV V1 mean P.7 mmHg LV V1 mean: 129.5 cm/sec LV V1 VTI: 49.1 cm ECHO/Echo Complete Interpretation Summary Normal LV size. Left ventricular systolic function is normal. Bioprosthetic aortic valve. Moderate concentric left ventricular hypertrophy. The left ventricular ejection fraction is 65 %. Mean aortic valve gradient 18 mmHg. Compared to the previous the above is unchanged. Ordering Physician: Milka Mckenna Referring Physician: Milka Mckenna Performed By: Janell Marie RCS
== END | disposition home or self-care (01) ==
LOC: CVS 09:45
PROVIDERS: PCP Family Medicine; Referring Provider Nurse Practitioner Gerontology; Visit Provider Nurse Practitioner Gerontology
DX: Z95.3 Presence of xenogenic heart valve (principal)
CPT/HCPCS: 93306

== ENCOUNTER → 2024-08-31 | Outpatient (CLI) | payer MEDICARE, OTHER, SELFPAY ==
[2024-08-31 13:24] LABS: ALB/GLOB Ratio 1.3 RATIO (0.9-2.4); AST(SGOT) 28 U/L (<=31); Alanine Aminotransfer ALT/SGPT 21 U/L (<=34); Albumin, Serum 4.4 g/dL (3.4-4.8); Alkaline Phosphatase 69 U/L (35-104); Anion Gap 11 (5-15); BUN 13 mg/dL (4-19); BUN/Creat Ratio 19.6 RATIO (10-20); Calcium,Total 9.9 mg/dL (7.6-11.0); Carbon Dioxide 24.4 mmol/L (21.0-32.0); Chloride 105 mmol/L (98-108); Cholesterol 222 mg/dL (<=200); Creatinine, Serum 0.67 mg/dL (0.70-1.20); EST Glomerular Filtration Rate 88 (>60); Globulin 3.3 g/dL (2.2-4.2); Glucose 99 mg/dL (70-99); High Density Lipoprotein 52 mg/dL; Low Density Lipoprotein Calc. 129 mg/dL; Potassium 4.4 mmol/L (3.3-5.1); Protein, Total 7.6 g/dL (5.9-8.4); Sodium Level 141 mmol/L (133-145); Total Bilirubin 0.55 mg/dL (0.00-1.30); Triglycerides 202 mg/dL; Very Low Density Lipoprotein 40 mg/dL (5-40); Vitamin D,25 Hydroxy 53.3 ng/mL (30-100); cholesterol:hdl ratio screen 4.24
== END | disposition home or self-care (01) ==
LOC: LAB 12:10
PROVIDERS: PCP Family Medicine; Referring Provider Internal Medicine Endocrinology, Diabetes & Metabolism; Visit Provider Internal Medicine Endocrinology, Diabetes & Metabolism
DX: E03.8 Other specified hypothyroidism (principal); E78.2 Mixed hyperlipidemia; E55.9 Vitamin D deficiency, unspecified
CPT/HCPCS: 36415; 80053; 80061; 82306; 84443

== ENCOUNTER → 2024-09-15 | Outpatient (CLI) | payer MEDICARE, OTHER, SELFPAY ==
--- NOTE | 2024-09-15 13:10 | MRI_ITS ---
PROCEDURE: LOWER EXT JOINT ONLY (ROUTINE) 09/15/2024 REASON FOR EXAM: RT PTT,OSTEOARTHRITIS TECHNIQUE: MRI of the right lower Extremity. Multiplanar and multisequence images were obtained without IV contrast administration. COMPARISON: COMPARISON : None FINDINGS: Achilles tendon is intact. Minimal tibialis posterior and flexor digitorum longus tenosynovitis. Flexor tendons are otherwise intact. Anterior extensor tendons are intact. Peroneal tendons are intact. Anterior and posterior syndesmotic ligaments are intact. Anterior talofibular, calcaneofibular and posterior talofibular ligaments are intact. Deltoid ligament complex is intact. Mild thickening of the middle cord of the plantar fascia likely related to chronic fasciitis. Small plantar calcaneal spur. Loss of the normal fat signal within the sinus tarsi likely related to a combination of a ganglion and scarring. Mild tibiotalar and moderate scattered midfoot osteoarthritis including chondral thinning and marginal osteophytes. No sizeable joint effusion or malalignment. Negative for fracture or marrow replacement. A couple small ganglia along the dorsal aspect of the midfoot. Soft tissues are otherwise intact. MRI/Lower Ext Joint Only (Routine) IMPRESSION: 1. 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 Please correlate. 2. Minimal tibialis posterior tenosynovitis. 3. Mild/moderate degenerative changes throughout the midfoot and hindfoot. 4. Mild chronic plantar fasciitis. Reading Location: [facility]
== END | disposition home or self-care (01) ==
LOC: MRI 13:02
PROVIDERS: PCP Family Medicine; Referring Provider Podiatrist; Visit Provider Podiatrist
DX: M76.821 Posterior tibial tendinitis, right leg (principal); M19.071 Primary osteoarthritis, right ankle and foot
CPT/HCPCS: 73721

== ENCOUNTER → 2025-01-07 | Outpatient (CLI) | payer MEDICARE, OTHER, SELFPAY ==
--- NOTE | 2025-01-07 12:41 | VDLE_ITS ---
Reason For Study Reason For Study: RLE Edema RIGHT GSV is normal. CFV is compressible, spontaneous, phasic, competent and demonstrates normal augmentation. FV is compressible, spontaneous, phasic, competent and demonstrates normal augmentation. POP V is compressible, spontaneous, phasic, competent and demonstrates normal augmentation. T/P Trunk is compressible. PTV is compressible. RT PerV is compressible. SFJ is competent and measures 0.52 cm. GSV proximal thigh measures 0.29 x 0.31 cm. GSV at knee measures 0.29 x 0.30 cm. GSV above knee is competent. GSV below knee is INCOMPETENT for greater than 0.5 seconds. SSV at junction is competent and measures 0.24 x 0.27 cm. SSV mid calf is competent and measures 0.32 x 0.39 cm. Nonvascularized anechoic area measuring approximately 4.79cm x 1.30cm noted in Rt Pop Fossa. Procedure This is a venous duplex using B-mode, color flow and spectral Doppler. Exam performed in department. The exam was diagnostic. VL/Venous Duplex US, Unilateral Interpretation Summary Deep veins of the right lower extremity are patent and compressible segmentally . There is no evidence of right lower extremity deep vein thrombosis. The right great saphenous vein appears patent a nd compressible segmentally. Positive for reflux in the right great saphenous vein below the knee. Nonvascularized anechoic area measuring approximately 4.79cm x 1.30cm noted in right popliteal fossa. Ordering Physician: Neel Ochoa Referring Physician: Neel Ochoa Performed By: Eusebio Richter RVT
== END | disposition home or self-care (01) ==
LOC: CVS 12:39
PROVIDERS: PCP Family Medicine; Referring Provider Family Medicine; Visit Provider Family Medicine
DX: R60.0 Localized edema (principal)
CPT/HCPCS: 93971

== ENCOUNTER 2025-01-19 16:00 | Outpatient (RCR) | payer MEDICARE, OTHER, SELFPAY ==
--- NOTE | 2025-01-19 17:16 | HP.PTDCSUM ---
Discharge Summary D/C summary: It has been my pleasure to treat FABRICE MOON referred by Dr. Christiano Medeiros, DPBrigitte, with the diagnosis of R Post tib tendonitis and dysfunction and arthritis for a total of 8 visit(s). Discharge Date: 01/19/25 Please see the following information for a summary of their discharge status. Subjective Subjective: She got new shoes, they are ugly but she feels comfortable. She reports that her foot is a lot better. Her back has been bothering her due to walking weird. Pain R ankle pain: Pain Intensity (Out of 10): 1 Overall Improvement % Improvement: 65 Objective Objective/Function: R ankle AROM:4 degrees DF, 50 degrees PF, 18 INV, 12 EV L ankle AROM: DF 4, PF 40, INV 14, EV 4) LE MMT: R ankle DF 9.3 and PF 10.8, INV 5.2 and EV 7.4 L ankle DF 5.9, 10.5, 5.7 and 4). Goals Goal 1:: I HEP Goal Progress: Goal Met Goal 2:: Be able to walk with no antalgic gait and swing leg passes stance leg B with least restrictive device Goal 3:: Increase R ankle AROM (at the time of the eval: R ankle AROM:2 degrees DF, 50 degrees PF, 18 INV, 6 EV L ankle AROM: DF 4, PF 40, INV 14, EV 4) Goal 4:: Increase R ankle strength (at the time of the eval: LE MMT: R ankle DF 6.2 and PF 8, INV 3.9 and EV 3.5 L ankle DF 5.9, 10.5, 5.7 and 4). Plan Plan: 2X/ week for 4 weeks for R ankle stretching, strengthening, balance, gait training and US to the R post tib insertion with HEP HEP: seated heel and toe raises, seated soleus stretch with strap and seated gastroc stretch with strap D/C Information Discharge Comments: DC PT to HEP d/c sentence: If there are questions or concerns regarding this patient's physical therapy, please feel free to call me at [phone]. Thank you for the referral of this patient. Sincerely, Maryana Guerrero, MPT Balance/Gait/Functional tests Balance/Special Test Scores Lower Extremity Functional Score: 46 Improvement % Improvement: 65
== END 2025-01-19 19:00 | disposition home or self-care (01) ==
LOC: PT 16:00
PROVIDERS: PCP Family Medicine; Referring Provider Podiatrist; Visit Provider Podiatrist
DX: M76.821 Posterior tibial tendinitis, right leg (principal); M19.071 Primary osteoarthritis, right ankle and foot
CPT/HCPCS: 97035; 97110; 97161

== ENCOUNTER 2025-02-13 12:06 | Observation (INO) | payer MEDICARE, OTHER, SELFPAY ==
[2025-02-13] VITALS (32 sets, daily range): BP systolic 100–173; BP diastolic 40–108; PULSE 32–64; RESP 10–22; TEMP 36.1–36.7; O2SAT 93–100; BMI 31.1; BMI 28.3
--- NOTE | 2025-02-13 12:42 | EKG12_ITS ---
Test Reason : Blood Pressure : */* mmHG Vent. Rate : 62 BPM Atrial Rate : 62 BPM P-R Int : 168 ms QRS Dur : 80 ms QT Int : 402 ms P-R-T Axes : 70 14 83 degrees QTcB Int : 408 ms Sinus rhythm with frequent Premature ventricular complexes in a pattern of bigeminy Nonspecific T wave abnormality Abnormal ECG Confirmed by Eliseo Cabral ([id number]), remote coders YONI CARLOS ([id number]) on 02/15/2025 8:51:29 AM Referred By: Confirmed By: Eliseo Cabral
--- NOTE | 2025-02-13 12:43 | EX.ED.DYSGE1 ---
HPI History of Present Illness Chief Complaint: Palpitations Informant: patient Onset/Context/Timing Onset: Days (3) Context: Gradual Onset Timing: Continuous Quality: Pressure, tightness Location: Substernal Worsened by: nothing Relieved by: nothing Narrative Narrative: Patient presents with feeling shaky and tired. Patient states this has been constant for the past 3 days. Patient states it came on gradually. Patient admits that she has some pressure and tightness over the substernal area. Patient states nothing makes it worse and nothing makes it better. Patient denies any shortness of breath or cough. Patient denies any nausea or vomiting. Patient denies any palpitations. [facility] Medical History PAF (paroxysmal atrial fibrillation) New onset atrial fibrillation Fibromyalgia Obesity Hypothyroidism Nonrheumatic aortic (valve) stenosis Bicuspid aortic valve Hyperlipidemia Obstructive sleep apnea Home Medications ?Medication ?Instructions ?Recorded ?Last Taken ?Type coenzyme Q10 100 mg tablet 100 mg PO QDAY #90 tabs 05/22/17 Unknown Rx levothyroxine 137 mcg tablet 112 mcg PO DAILY 01/07/23 Unknown History fesoterodine 4 mg tablet,extended 4 mg PO QDAY 02/04/24 Unknown History release 24 hr (Toviaz) cholecalciferol (vitamin D3) 50 4,000 unit PO QODAY 07/20/24 Unknown History mcg (2,000 unit) tablet hydrocodone-acetaminophen 5-325mg 1 tab PO QHS PRN pain 07/20/24 Unknown History 5mg-325mg spironolactone 25 mg tablet 25 mg PO DAILY #90 TABLETS 09/29/24 Unknown Rx metoprolol tartrate 25 mg tablet 12.5 mg (1/2 x 25 mg) PO BID dose 12/22/24 Unknown Rx has been decreased. #90 tabs vibegron 75 mg tablet (Gemtesa) 75 mg PO QDAY 12/29/24 Unknown History apixaban 5 mg tablet (Eliquis) 5 mg PO BID #180 tabs 01/20/25 Unknown Rx [id number] intramuscular 1 ea IM .month 01/20/25 Unknown History trazodone 100 mg tablet 100 mg PO QHS 01/20/25 Unknown History Allergy/AdvReac Type Severity Reaction Status Date / Time amitriptyline (From Elavil) AdvReac Severe Unknown Verified 01/20/25 11:17 tramadol AdvReac Severe Unknown Verified 01/20/25 11:17 valdecoxib (From Bextra) AdvReac Severe Unknown Verified 01/20/25 11:17 amlodipine AdvReac Intermediate Foot and Verified 01/20/25 11:17 ankle edema Family History Father Lung cancer Mother Cancer kidney cancer Heart disease PPM Surgical History History of ankle surgery Hx of shoulder surgery History of foot surgery History of lumbar surgery History of bladder suspension procedure History of hysterectomy History of left heart catheterization (09/06/10) History of aortic valve replacement with bioprosthetic valve (10/23/10) Social History Smoking Status: Never smoker ROS ROS ED Constitutional Constitutional ED: Denies chills or fever(s) Eyes Eyes: Denies blurry vision or change in vision ENT ENT ED: Reports rhinorrhea; Denies sore throat Cardiovascular Cardiovascular: Reports chest pain; Denies palpitations Respiratory/Chest Respiratory/Chest: Denies cough or dyspnea Gastrointestinal Gastrointestinal: Denies nausea or vomiting Genitourinary Genitourinary ED: Denies dysuria or hematuria Musculoskeletal Musculoskeletal: Reports neck pain; Denies back pain Integumentary Denies abscess or rash Neurologic Neurologic: Reports headache(s); Denies weakness Allergic/Immunologic Allergic/Immunologic ED: Denies mouth swelling or urticaria EXAM Physical Exam Const Vital Signs: 02/13/25 12:07 02/13/25 12:18 02/13/25 12:21 Temperature 97.3 F L Temperature Source Temporal Pulse Rate 32 L 56 L Respiratory Rate 14 17 Respiratory Effort Normal Non-Labored Blood Pressure 134/62 H 151/77 H Blood Pressure Mean 86 101 Pulse Ox 99 100 Oxygen Delivery Method Room Air Room Air 02/13/25 12:30 02/13/25 12:45 02/13/25 12:45 Temperature Temperature Source Pulse Rate 54 L 54 L 54 L Respiratory Rate 14 17 17 Respiratory Effort Blood Pressure 138/45 H 143/63 H Blood Pressure Mean 71 84 Pulse Ox 99 97 97 Oxygen Delivery Method 02/13/25 12:58 02/13/25 13:05 02/13/25 13:06 Temperature Temperature Source Pulse Rate 64 Respiratory Rate 14 Respiratory Effort Blood Pressure 126/57 H Blood Pressure Mean 71 Pulse Ox 97 Oxygen Delivery Method Room Air 02/13/25 13:15 02/13/25 13:30 02/13/25 13:45 Temperature Temperature Source Pulse Rate 59 L 55 L 53 L Respiratory Rate 20 H 12 10 L Respiratory Effort Blood Pressure 118/82 H 125/40 H 112/56 L Blood Pressure Mean 93 65 74 Pulse Ox Oxygen Delivery Method 02/13/25 14:00 02/13/25 14:15 02/13/25 14:30 Temperature Temperature Source Pulse Rate 58 L 58 L 52 L Respiratory Rate 11 L 18 17 Respiratory Effort Blood Pressure 130/52 H 126/60 H 126/45 H Blood Pressure Mean 74 80 68 Pulse Ox 96 Oxygen Delivery Method 02/13/25 15:17 02/13/25 15:30 02/13/25 15:30 Temperature Temperature Source Pulse Rate 55 L 51 L 52 L Respiratory Rate 15 17 22 H Respiratory Effort Blood Pressure 137/60 H 100/52 L 100/52 L Blood Pressure Mean 83 68 64 Pulse Ox 99 98 97 Oxygen Delivery Method 02/13/25 15:45 02/13/25 16:00 02/13/25 16:01 Temperature Temperature Source Pulse Rate 56 L 54 L Respiratory Rate 15 14 Respiratory Effort Blood Pressure 124/62 H 138/59 H 138/59 H Blood Pressure Mean 79 85 81 Pulse Ox 100 99 Oxygen Delivery Method 02/13/25 16:15 02/13/25 16:30 02/13/25 16:45 Temperature Temperature Source Pulse Rate 52 L 53 L Respiratory Rate 14 14 20 H Respiratory Effort Blood Pressure 120/53 L 155/57 H 160/108 H Blood Pressure Mean 75 83 125 Pulse Ox 99 98 Oxygen Delivery Method 02/13/25 17:00 Temperature Temperature Source Pulse Rate 57 L Respiratory Rate 17 Respiratory Effort Blood Pressure Blood Pressure Mean Pulse Ox Oxygen Delivery Method Positive well nourished and well developed Constitutional Narrative: BMI is 31.2. General Appearance ED: well developed and NAD HEENT Reports moist mucous membranes Neck supple and no JVD Resp normal respiratory effort and clear to auscultation bilaterally Cardio regular rhythm Rate: bradycardia GI non-tender and non-distended Palpation: soft Extremity normal to inspection General Extremety ED: Negative for edema or tenderness General Extremity: Negative for edema Neuro oriented x3, CN's II-XII intact bilaterally and no sensory deficits noted Sensorium / Orientation: alert Motor Exam: strength 5/5 throughout Psych mental status grossly normal Skin no rashes or lesions noted MDM MDM MDM Narrative Medical decision making narrative: Differential diagnosis includes cardiac dysrhythmia, cardiac ischemia, pneumonia, bronchitis, electrolyte abnormality, dehydration, medication side effect, and anxiety. EKG will be obtained to assess for cardiac dysrhythmia and cardiac ischemia. Chest x-ray will be obtained to assess for pneumonia or bronchitis. He. CBC will be obtained to assess for leukocytosis and anemia. Basic metabolic profile will be obtained to assess for electrolyte abnormality and renal function. High-sensitivity troponin will be obtained to assess for cardiac ischemia. 2-hour repeat high-sensitivity troponin will be obtained to assess for ongoing cardiac ischemia. TSH will be obtained to assess for hypothyroidism and hyperthyroidism. Serum magnesium level will be obtained to assess for hypomagnesemia. Lab Data Attestation: I reviewed the patient's lab results. Lab results narrative: CBC was reviewed and was within normal limits. Basic metabolic profile was reviewed and was within normal limits. Serum magnesium level was reviewed and was normal at 1.8. TSH was reviewed and was normal at 0.974. Initial high-sensitivity troponin was reviewed and was normal at 14. 2-hour repeat high-sensitivity troponin was reviewed and was 20. The delta is 6. Labs: Laboratory Results - last 24 hr 02/13/25 02/13/25 12:17 14:55 WBC 8.1 RBC 4.50 Hgb 13.6 Hct 40.4 MCV 89.8 MCH 30.2 MCHC 33.7 RDW Std Deviation 41.4 RDW Coeff of Sarai 12.7 Plt Count 228 MPV 10.9 Immature Gran % (Auto) 0.200 Neut % (Auto) 50.9 Lymph % (Auto) 38.1 [place] % (Auto) 8.7 Eos % (Auto) 1.2 Baso % (Auto) 0.9 Absolute Neuts (auto) 4.1 Absolute Lymphs (auto) 3.08 Nucleated RBC % 0 Sodium 138 Potassium 4.0 Chloride 101 Carbon Dioxide 23.7 Anion Gap 13 BUN 9 Creatinine 0.64 L Estim Creat Clear Calc 60.35 Est GFR (MDRD) Non-Af 89 BUN/Creatinine Ratio 14.1 Glucose 102 H Calcium 9.1 Magnesium 1.8 Troponin T High Sens 14 Troponin T Hi Sens 2 Hr 20 H TSH 0.974 Radiography Chest X-Ray - ED: 2 View, Read by ED Physician, Read by Radiologist and No Acute Disease Diagnostic Testing: Clinical Impression(s) from Imaging Studies Chest X-Ray 02/13/25 13:10 IMPRESSION: Acute process appreciated. Reading Location: [facility] [place] and lateral chest x-ray was obtained. There are 2 views. On my independent interpretation, lung kilgore are clear. There is normal cardiac silhouette. Bony thorax is normal. There is no acute process noted. Radiologist also interpreted the x-ray and agrees. EKG Initial EKG: Attestation: I personally reviewed and interpreted this EKG as follows: Interpretation: Sinus Rhythm (62 with ventricular bigeminy) and No Acute Injury Pattern Comments: EKG was obtained. On my independent interpretation, shows ventricular bigeminy with a rate of 62. WA interval was normal at 168 ms. QRS interval was normal at 80 ms. QTc interval was normal at 408 ms. [place] was normal. There are no acute ST or T wave changes noted. Prior EKG tracings: available for review Prior: Unchanged (04/25/2023) Management Discussion w/another healthcare provider: Hospitalist (Dr. Smith) Treatment and Re-Evaluation :: Patient was given aspirin. Patient was advised of her findings. Patient feeling somewhat better on reevaluation. Given that the delta troponin is 6, I recommended admission for further workup. Patient is agreeable with this. Case was discussed with the hospitalist. She will admit the patient for observation. Patient and family understand and are agreeable with the plan. All questions were answered. Discharge Plan Dx/Rx/DC Orders Clinical Impression: Chest pain, Essential hypertension, Fatigue Disposition Disposition: Acute Care Hospital [facility]
--- OUTSIDE RECORDS SUMMARY | 2025-02-13 12:46 | XMS RPT_ITS | CCD ---
Author Organization [facility] Providers Care Tariff Supervisor Name Role Phone MD Fairchild Cyril S Unavailable Bre LONG, Micah A Primary Care Provider Lynn Christensen Unavailable [phone] Micah Díaz Primary Care Provider Dr. Micah Díaz Referring Provider Leigh Ann ALEGRE, PA Ileana Briggs Attending Provider Dr. Angel Fairchild Attending Provider Bre LONG, Micah A Primary Care Provider Lynn Christensen Unavailable [phone] Bre LONG, Micah A Primary Care Provider Lynn Christensen Unavailable Bre LONG, Micah A Primary Care Provider Lynn Christensen Unavailable BRE, MICAH A Referring Unavailable BRE, MICAH A Primary Care Unavailable BOLOGNA, ROXANE A Attending Unavailable BRE, MICAH A Referring Unavailable BRE, MICAH A Primary Care Unavailable BOLOGNA, ROXANE A Attending Unavailable BRE, MICAH A Referring Unavailable BRE, MICAH A Primary Care Unavailable BRE, MICAH A Primary Care Unavailable BOLOGNA, ROXANE A Admitting Unavailable BOLOGNA, ROXANE A Attending Unavailable LA NENAOGNA, ROXANE A Referring Unavailable BRE, MICAH A Referring Unavailable BOLOGNA, ROXANE A Attending Unavailable BRE, MICAH A Primary Care Unavailable BRE, MICAH A Primary Care Unavailable BOLOGNA, ROXANE A Attending Unavailable MICAH DÍAZ Referring Unavailable Dr. Micah Díaz Primary Care Provider [phone] Dr. Micah Díaz Referring Provider SIS Carter Attending Provider Dr. Angel Fairchild Attending Provider [phone] SIS Carter Referring Provider SIS Carter Other Provider [phone] Dr. Micah Díaz Primary Care Provider [phone] Dr. Micah Díaz Referring Provider SIS Carter Attending Provider Dr. Angel Fairchild Attending Provider [phone] Angel Fairchild Referring Provider [phone] Angel Fairchild Other Provider Dr. Matti Camarillo Other Provider SIS Carter Other Provider [phone] Dr. Stepan Horner Attending Provider Dr. Michell Dorsey Attending Provider Unavailabl e Dr. Micah Díaz Primary Care Provider [phone] Dr. Micah Díaz Referring Provider SIS Carter Attending Provider Dr. Reginald Carey Attending Provider [phone] Lynn Christensen Unavailable [phone] Micah Díaz Primary Care Provider [phone] Dr. Angel Fairchild Attending Provider [phone] Angel Fairchild Other Provider Dr. Angel Fairchild Referring Provider [phone] SIS Carter Other Provider [phone] Dr. Stepan Horner Attending Provider Dr. Micah Díaz Referring Provider Leigh Ann ALEGRE, PA Ileana Briggs Attending Provider Dr. Reginald Carey Attending Provider Dr. Micah Díaz Primary Care Provider [phone] Dr. Micah Díaz Referring Provider [phone] Leigh Ann ALEGRE, PA Ileana Briggs Attending Provider Bre LONG, Micah Moy Primary Care Provider Amparo FLEMING, Lynn Jurado Unavailable CASSY ZUNIGA Referring Unavailable MICAH DÍAZ Primary Care Unavailable CASSY ZUNIGA Attending Unavailable MICAH DÍAZ Primary Care Unavailable Dr. Micah Díaz DO Primary Care Provider Dr. Matti Camarillo DO Attending Provider Marquise LONG, Dr. Chino Referring Provider Monie FLEMING, Dr. López Attending Provider Dr. Rene Lomax MD Referring Provider Mala PHAM, Dr. Alvarado Attending Provider Dr. Christiano Medeiros DPM Referring Provider Dr. Micah Díaz DO Attending Provider [phone] Dr. Micah Díaz DO Referring Provider [phone] Milka Cordova Attending Provider Milka Cordova Referring Provider Gurinder FLEMING, Dr. Ortiz Attending Provider Dr. Micah Díaz DO Primary Care Provider [phone] Dr. Matti Camarillo DO Attending Provider Dr. Matti Camarillo DO Referring Provider Bre LONG, Dr. Shaikh Primary Care Provider Yaoing DPM, Dr. Alvarado Attending Provider Wunning DPM, Dr. Alvarado Referring Provider Amparo FLEMING, Dr. Bailey Attending Provider [facility], Dr. Shaikh Referring Provider [facility], Dr. Shaikh Primary Care Physician Marquise DO, Dr. Chino Attending Physician Wunning DPM, Dr. Alvarado Attending Physician [phone] Amparo FLEMING, Dr. Bailey Attending Physician [facility], Dr. Shaikh Primary Care Physician [facility], Dr. Shaikh Attending Physician Aurelio FLEMING, Dr. Montelongo Attending Physician [facility], Dr. Shaikh Primary Care Physician Wunning DPM, Dr. Alvarado Attending Physician Wunning DPM, Dr. Alvarado Referring Provider Wunning DPM, Dr. Alvarado Attending Physician Wunning DPM, Dr. Alvarado Referring Provider Ileana Carter Attending Physician Bre, Micah Primary Care Unavailable Lynn Christensen Attending Unavailable Bre, Micah Referring Unavailable Bre, Micah Referring Unavailable Bre, Micah Primary Care Unavailable Lynn Christensen Attending Unavailable Wunndeejay, Christiano Referring Unavailable Wunning, Christiano Attending Unavailable Bre, Micah Primary Care Unavailable Bre, Micah Attending Unavailable Bre, Micah Primary Care Unavailable Bre, Micah Referring Unavailable Wunning, Christiano Referring Unavailable Wunning, Christiano Attending Unavailable Bre, Micah Primary Care Unavailable Matti Camarillo Referring Unavailable Matti Camarillo Attending Unavailable Bre, Micah Primary Care Unavailable Bre, Micah Primary Care Unavailable Bre, Micah Referring Unavailable WynesLynn murcia Attending Unavailable Bre, Micah Attending Unavailable Bre, Micah Primary Care Unavailable Bre, Micah Primary Care Unavailable Bala CANAS, Milka Referring Unavailable Bala CROP SPECIALIST, Milka Attending Unavailable Christiano Medeiros Referring Unavailable Christiano Medeiros Attending Unavailable Bre, Micah Primary Care Unavailable Bre, Micah Primary Care Unavailable Bre, Micah Referring Unavailable Ileana Carter Attending Unavail able Bre, Micah Referring Unavailable Bre, Micah Primary Care Unavailable GabynesLynn murcia Attending Unavailable Bre, Micah Referring Unavailable Bre, Micah Primary Care Unavailable WyneskiLynn Attending Unavailable Bre, Micah Primary Care Unavailable Bre, Micah Referring Unavailable WyneskiLynn Attending Unavailable Bre, Mciah Primary Care Unavailable Bre, Micah Referring Unavailable WyneskiLynn Attending Unavailable Bre, Micah Referring Unavailable Bre, Micah Primary Care Unavailable Reginald Carey Attending Unavailable Bre, Micah Primary Care Unavailable GabynesLynn murcia Attending Unavailable Bre, Micah Primary Care Unavailable GabynesLynn murcia Attending Unavailable Bre, Micah Primary Care Unavailable GabynesLynn murcia Attending Unavailable Bre, Micah Referring Unavailable Bre, Micah Primary Care Unavailable Bre, Micah Referring Unavailable WynesLynn murcia Attending Unavailable Bre, Micah Referring Unavailable Bre, Micah Primary Care Unavailable WynesLynn murcia Attending Unavailable Bre, Micah Primary Care Unavailable Bala CANAS, Milka Attending Unavailable Bre, Micah Primary Care Unavailable Angel Fairchild Attending Unavailable Bre, Micah Referring Unavailable Bre, Micah Primary Care Unavailable Bala CROP SPECIALIST, Milka Attending Unavailable Rene Lomax Referring Unavailable Rene Lomax Attending Unavailable Bre, Micah Primary Care Unavailable Matti Camarillo Referring Unavailable WiMatti fitzpatrick Attending Unavailable Bre, Micah Primary Care Unavailable Allergies Allergy Classification Reported Allergen(s) Allergy Type Date of Onset Reaction(s) Facility (1 source) Amitriptyline Drug Allergy 1 [facility] Work Phone: (2 sources) gabapentin; Translations: [NEURONTIN] Drug Allergy 1 [facility] Work Phone: (20 sources) Naproxen; Translations: [NAPROXEN] Drug Allergy 6 [facility] Work Phone: (20 sources) traMADol; Translations: [TRAMADOL] Drug Allergy 6 Unknown [facility] Work Phone: (1 source) valdecoxib; Translations: [BEXTRA] Drug Allergy 1 [facility] Work Phone: (20 sources) Amitriptyline; Translations: [AMITRIPTYLINE] Drug Allergy 4 Rash [facility] Work Phone: (20 sources) Amitriptyline; Translations: [AMITRIPTYLINE HCL] Drug Allergy 6 Intolerance [facility] (20 sources) oxybutynin; Translations: [OXYBUTYNIN] Drug Allergy 2 Swelling [facility] (20 sources) valdecoxib; Translations: [VALDECOXIB] Drug Allergy 4 [facility] Work Phone: (9 sources) tolterodine; Translations: [TOLTERODINE] Drug Allergy 2 Other: See [facility] (20 sources) amLODIPine; Translations: [AMLODIPINE] Drug Allergy 3 Swelling [facility] (1 source) Amitriptyline Drug Allergy 5 [facility] (1 source) amLODIPine Drug Allergy 5 [facility] (1 source) valdecoxib Drug Allergy 5 [facility] Medications Current Medications Medication Drug Class(es) Dates Sig (Normalized) Sig (Original) acetaminophen 325 mg / HYDROcodone bitartrate 5 mg oral tablet (20 sources) Opioid Agonist Start: 07-20-2024 Hydrocodone-Acetam inophen 5-325 mg tablet Active 1 {tbl} PO AT BEDTIME as needed July 20, 2024 12:00am Complies with drug therapy Start: 04-23-2024 take 1 tablet by dereje th once HYDROcodone-acetaminophen (NORCO) 5-325 mg per tablet Take 1 tablet by mouth every afternoon. 04/23/2024 Active Start: 10-28-2010 End: 03-22-2022 take 1-2 tablets by mouth every six hours as needed acetaminophen-hydrocodone 5-500 mg ORAL tablet Take 1-2 tablets by mouth every 6 hours as needed. (do not exceed 4000mg of acetaminophen/tylenol in any 24 hour period) 60 tablet 0 10/28/2010 03/22/2022 Discontinued Comment on above: Take 1-2 tablets by mouth every 6 hours as needed. (do not exceed 4000mg of acetaminophen/tylenol in any 24 hour period) cephalexin 500 mg oral capsule (1 source) Cephalosporin Antibacterial Start: 2021 End: 2021 cephALEXin 500 mg cap(s) (KEFLEX) cholecalciferol 0.05 mg oral tablet (20 sources) Vitamin D Start: 2024 take 1 tablet by mouth once daily Cholecalciferol (Vitamin D3) 50 mcg (2,000 unit) tablet Active 4000 U PO daily July 20, 2024 11:24am Complies with drug therapy Start: 05-19-2017 End: 07-20-2024 Cholecalciferol (Vitamin D3) 2,000 unit tablet Discontinued 0 PO daily May 19, 2017 1:00am July 20, 2024 11:25am 5000 IU Tablet PO QDAY Start: 10-03-2010 VITAMIN D 2000 UNIT TABS 6000 IU tablet by mouth once a day CHOLECALCIFEROL [id number] Angel Fairchild MD cholecalciferol, vitamin D3, (VITAMIN D3 ORAL) (20 sources) cholecalciferol, vitamin D3, (VITAMIN D3 ORAL) Take by mouth. Active cholecalciferol, vitamin D3, (VITAMIN D3 ORAL) Take by mouth. 0 Active Comment on above: Take by mouth. ubidecarenone 100 mg oral tablet (20 sources) Start: 05-19-2017 End: 05-22-2017 take 10 tablets by mouth once daily Coenzyme Q10 100 mg tablet Active 100 mg PO daily 90 May 22, 2017 11:17am Complies with drug therapy Start: 05-19-2015 take 1 tablet by dereje once daily CO Q-10 100 MG CAPS One tablet by mouth daily COENZYME Q10 [id number] Angel Fairchild MD coenzyme Q10 (CO ENZYME Q-10) 100 mg cap capsule Take 100 mg by mouth twice daily. Active Comment on above: Take 100 mg by mouth twice daily. CPAP (20 sources) CPAP as directed . For sleep apnea started 10/09/2004 Active CPAP as directed . For sleep apnea started 10/09/2004 0 Active Comment on above: as directed. For sle ep apnea started 10/09/2004 24 hr fesoterodine fumarate 4 mg extended release oral tablet (20 sources) Start: take 1 tablet by mouth once daily Fesoterodine (Toviaz) 4 mg tablet extended release 24 hr Active 4 mg PO daily February 04, 2024 12:00am Complies with drug therapy Start: 05-14-2023 End: 10-28-2023 take 1 tablet by mouth once daily Fesoterodine 4 mg tablet extended release 24 hr Discontinued 4 mg PO DAILY May 14, 2023 1:00am October 28, 2023 11:14am Start: 10-03-2022 End: 01-07-2023 take 1 tablet by mouth once daily Fesoterodine 4 mg tablet extended release 24 hr Discontinued 4 mg PO DAILY October 03, 2022 12:00am January 07, 2023 2:25pm Vcry-Y50-Mipwfjok injectable (3 sources) Start: 01-20-2025 [id number] ins injectable Active NMA IM January 20, 2025 12:00am Complies with drug therapy lactobacillus acidophilus [id number] unt oral capsule (20 sources) Lactobacillus ac idophilus (PROBIOTIC) 10 billion cell cap Take by mouth. Active Comment on above: Take by mouth. levothyroxine sodium 0.112 mg oral tablet (20 sources) l-Thyroxine Start: 03-04-2023 levothyroxine (SYNTHROID) 112 mcg tablet TAKE 1 TABLET BY MOUTH EVERY DAY IN THE MORNING EXCEPT ON SUNDAYS ONLY TAKE EXTRA 1/2 TAB 03/04/2023 Active Start: 01-07-2023 Levothyroxine 137 mcg tablet Active 112 ug PO DAILY January 07, 2023 2:24pm Complies with drug therapy Start: 01-07-2023 take 112 ug by mouth once daily Levothyroxine Active 112 MCG PO DAILY January 07, 2023 2:24pm Start: 05-09-2020 End: 01-07-2023 take 1 tablet by mouth once daily Levothyroxine 137 mcg tablet Discontinued 137 ug PO DAILY May 09, 2020 1:00am January 07, 2023 2:26pm Start: 05-19-2017 End: 05-09-2020 take 1 tablet by mouth once daily Levothyroxine 125 mcg tablet Discontinued 125 ug PO daily 0 May 19, 2017 1:00am May 09, 2020 12:13pm Start: 10-02-2011 take 1 tablet by dereje th once daily LEVOTHYROXINE SODIUM 112 MCG TABS One tablet by mouth daily LEVOTHYROXINE SODIUM [id number] Angel Fairchild MD Start: 10-02-2011 take 1 tablet by dereje th once daily LEVOTHROID 125 MCG TABS One tablet by mouth daily LEVOTHYROXINE SODIUM Angel Fairchild MD Start: 10-03-2010 take 1 tablet by dereje th once daily LEVOTHYROXINE SODIUM 100 MCG TABS One tablet by mouth daily LEVOTHYROXINE SODIUM [id number] Gloria Esparza End: 03-29-2024 Levothyroxine 100 mcg ORAL C ap Take 125 mcg by mouth once daily. 03/29/2024 Discontinued Comment on above: Take 125 mcg by mout h once daily. lidocaine hydrochloride 0.02 mg/mg topical gel (1 source) Antiarrhythmic, Amide Local Anesthetic Start: 2 End: 2 lidocaine urojet 2 % 6 mL topical gel (XYLOCAINE, GLYDO) metoprolol tartrate 25 mg oral tablet (20 sources) beta-Adrenergic Daniel Start: 5 take 0.5 tablet by mouth every twelve hours metoprolol tartrate, short acting, (LOPRESSOR) 25 mg tablet Take 0.5 tablets by mouth every 12 hours. 04/17/2024 Active Start: 12-30-2022 End: 12-22-2024 Metoprolol Tartrate 25 mg ta blet Discontinued 12.5 mg PO TWICE A DAY 90 January 23, 2023 2:47pm October 28, 2023 11:37am dose has been decreased. Start: 12-30-2022 End: 01-23-2023 take 12.5 mg by mouth twice daily Metoprolol Tartrate Active 12.5 MG PO TWICE A DAY 90 January 23, 2023 2:47pm Start: 05-19-2017 End: 12-30-2022 take 1 tablet by mouth twice daily Metoprolol Tartrate 25 mg tablet Discontinued 25 mg PO TWICE A DAY 180 3 December 31, 2018 11:11am December 30, 2022 5:15pm Start: 09-23-2011 take 1 tablet by dereje th twice daily METOPROLOL TARTRATE 25 MG TABS One tablet by mouth twice daily METOPROLOL TARTRATE [id number] Angel Fairchild MD Start: 12-18-2010 METOPROLOL TAR TRATE 50 MG TABS 1/2 tablet 2 X daily METOPROLOL TARTRATE [id number] Angel Fairchild MD Start: 10-28-2010 End: 03-29-2024 take 0.5 tablet by mouth twice daily metoprolol tartrate 25 mg ORAL tablet Take 0.5 tablets by mouth twice daily. 60 tablet 0 10/28/2010 03/29/2024 Discontinued Comment on above: Take 0.5 tablets by mouth twice daily. multivit-minerals/f olic acid (ONE-A-DAY WOMEN'S 50 PLUS ORAL) (2 sources) multivit-mineral s/f olic acid (ONE-A-DAY WOMEN'S 50 PLUS ORAL) Take by mouth. Active Mv-Mn-Folic Ac-Vit K-Herb 289 (Alive Once Daily Women 50 Plus) 800-100 mcg tablet (20 sources) Start: 05-26-2018 take 50-800 tablets by mouth once daily Mv-Mn-Folic Ac-Vit K-Herb 289 (Alive Once Daily Women 50 Plus) 800-100 mcg tablet Active TABLET PO DAILY May 26, 2018 10:59am Start: 05-26-2018 End: 12-07-2024 take 50-800 tablets by mouth once daily Mv-Mn-Folic Ac-Vit K-Herb 289 (Alive Once Daily Women 50 Plus) 800-100 mcg tablet Discontinued 1 {tbl} PO DAILY 0 May 26, 2018 1:00am December 07, 2024 3:39pm Start: 05-26-2018 take 50-800 tablets by mouth once daily Mv-Mn-Folic Ac-Vit K-Herb 289 (Alive Once Daily Women 50 Plus) 800-100 mcg tablet Active 1 {tbl} PO DAILY May 26, 2018 1:00am Start: 05-26-2018 take 50-800 tablets by mouth once daily Mv-Mn-Folic Ac-Vit K-Herb 289 (Alive Once Daily Women 50 Plus) 800-100 mcg tablet Active 1 TABLET PO DAILY May 26, 2018 12:00am Start: 05-26-2018 take 50-800 tablets by mouth once daily Mv-Mn-Folic Ac-Vit K-Herb 289 (Alive Once Daily Women 50 Plus) 800-100 mcg tablet Active 1 TABLET PO DAILY May 26, 2018 1:00am Start: 05-26-2018 take 50-800 tablets by mouth once daily Mv-Mn-Folic Ac-Vit K-Herb 289 (Alive Once Daily Women 50 Plus) 800-100 mcg tablet Active TABLET PO DAILY May 26, 2018 12:00am Start: 05-26-2018 take 50-800 tablets by mouth once daily Mv-Mn-Folic Ac-Vit K-Herb 289 (Alive Once Daily Women 50 Plus) 800-100 mcg tablet Active TABLET PO DAILY May 26, 2018 1:00am traZODone hydrochloride 100 mg oral tablet (3 sources) Serotonin Reuptake Inhibitor Start: 01-20-2025 take 1 tablet by mouth at bedtime Trazodone 100 mg tablet Active 100 mg PO AT BEDTIME January 20, 2025 12:00am Complies with drug therapy Vibegron (20 sources) Start: 12-29-2024 take 1 tablet by mouth once daily Start: 12-29-2024 take 1 tablet by dereje th once daily Vibegron (Gemtesa) 75 mg tablet Active 75 mg PO daily December 29, 2024 12:00am Complies with drug therapy Start: 02-04-2024 End: 07-20-2024 take 1 tablet by mouth once daily Vibegron (Gemtesa) 75 mg tablet Discontinued 75 mg PO daily February 04, 2024 12:00am July 20, 2024 11:38am Start: 02-04-2024 take 1 tablet by dereje th once daily Vibegron (Gemtesa) 75 mg tablet Active 75 mg PO daily February 04, 2024 12:00am Start: 10-03-2022 End: 01-07-2023 take 1 tablet by mouth once daily Vibegron (Gemtesa) 75 mg tablet Discontinued 75 mg PO DAILY October 03, 2022 12:00am January 07, 2023 2:26pm Start: 10-03-2022 End: 01-07-2023 take 1 tablet by mouth once daily Vibegron (Gemtesa) 75 mg tablet Discontinued 75 MG PO DAILY October 02, 2022 11:00pm January 07, 2023 1:26pm Start: 10-03-2022 End: 01-07-2023 take 1 tablet by mouth once daily Vibegron (Gemtesa) 75 mg tablet Discontinued 75 MG PO DAILY October 03, 2022 12:00am January 07, 2023 2:26pm Start: 10-03-2022 take 1 tablet by dereje th once daily Vibegron (Gemtesa) 75 mg tablet Active 75 MG PO DAILY October 03, 2022 12:00am vibegron (GEMTESA) 75 mg tablet (2 sources) take 1 tablet by dereje th once daily vibegron (GEMTESA) 75 mg tablet Take 75 mg by mouth once daily. Active Completed/Discontinued Medications Medication Drug Class(es) Dates Sig (Normalized) Sig (Original) amitriptyline hydrochloride 10 mg oral tablet (12 sources) Tricyclic Antidepressant Start: 12-24-2020 End: 03-22-2022 take 1 tablet by mouth once daily at bedtime amitriptyline (ELAVIL) 10 mg tablet Take 10 mg by mouth daily at bedtime. 0 12/24/2020 03/22/2022 Discontinued Comment on above: Take 10 mg by mouth daily at bedtime. amLODIPine 2.5 mg oral tablet (20 sources) Dihydropyridine Calcium Channel Daniel Start: 05-31-2022 End: 06-13-2022 take 1 tablet by mouth once daily Amlodipine 2.5 mg tablet Discontinued 2.5 mg PO DAILY 30 May 31, 2022 11:21am June 13, 2022 5:01pm Start: 05-31-2022 End: 05-31-2022 take 2.5 mg by mouth once daily Amlodipine 5 mg tablet Discontinued 2.5 mg PO DAILY May 31, 2022 11:19am May 31, 2022 11:21am Start: 05-31-2022 End: 05-31-2022 take 2.5 mg by mouth once daily Amlodipine Discontinue d 2.5 MG PO DAILY May 31, 2022 11:19am May 31, 2022 11:21am Start: 05-09-2020 End: 03-29-2024 take 1 tablet by mouth once daily Amlodipine 5 mg tablet Discontinued 5 mg PO DAILY May 09, 2020 1:00am May 31, 2022 11:21am Comment on above: Take 5 mg by mouth o nce daily. amoxicillin 500 mg oral tablet (20 sources) Penicillin-class Antibacterial Start: 8 End: take 1 tablet by mouth every hour Amoxicillin 500 mg tablet Discontinued 0 PO .COMPLEX 0 May 19, 2017 1:00am January 01, 2021 8:38am 500mg. 4 Tablets PO 1 hr prior to procedure PO Start: 08-30-2013 take 4 tablets by mo uth every hour AMOXICILLIN 500 MG TABS 4 tablets by mouth 1 hr prior to procedure AMOXICILLIN [id number] Angel Fairchild MD apixaban 5 mg oral tablet (20 sources) Factor Xa Inhibitor Start: 01-22-2023 take 1 tablet by mouth every twelve hours ELIQUIS 5 mg tab(s) Take 1 tablet by mouth every 12 hours. 01/22/2023 Active Start: 10-03-2022 End: 01-20-2025 take 1 tablet by mouth twice daily Apixaban (Eliquis) 5 mg tablet Discontinued 5 mg PO TWICE A DAY 180 3 May 04, 2024 5:38pm January 20, 2025 11:41am aspirin 81 mg delayed release oral tablet (20 sources) Platelet Aggregation Inhibitor, Nonsteroidal Anti-inflammatory Drug Start: 10-03-2010 End: 03-29-2024 Aspirin (Adult Low Dose Aspirin) 81 mg tablet,delayed release (DR/EC) Discontinued 81 mg PO DAILY May 09, 2020 1:00am October 03, 2022 10:55am Start: 10-03-2010 take 1 tablet by dereje th once daily in the evening ASPIRIN 81 MG TABS 1 tablet by mouth every evening ASPIRIN [id number] Gloria Esparza Comment on above: Take 1 tablet by dereje th once daily. atropine sulfate 0.025 mg / diphenoxylate hydrochloride 2.5 mg oral tablet (20 sources) Anticholinergic, Cholinergic Muscarinic Antagonist, Antidiarrheal Start: 12-18-2010 LOMOTIL 2.5-0.025 MG TABS As needed DIPHENOXYLATE-ATROPINE [id number] Gloria Esparza Start: 10-22-2010 diphenoxylate- atropine (LOMOTIL) 2.5-0.025 mg per tablet Take by mouth. 4 times a day as needed. 0 10/22/2010 Active Comment on above: Take by mouth. 4 mari es a day as needed. B.ani-L.aci-L.dayne-L.pl an-L.Van (PROBIOTIC FORMULA) 10 billion cell (2 billion ea) ORAL Cap (8 sources) Start: 10-22-2010 B.ani-L.aci-L.dayne-L.plan-L .Van (PROBIOTIC FORMULA) 10 billion cell (2 billion ea) ORAL Cap Take by mouth. 0 10/22/2010 Active Comment on above: Take by mouth. B.ani-L.aci-L.dayne-L.pl an-L.Van 10 billion cell (2 billion ea) cap (10 sources) Start: 10-22-2010 End: 03-29-2024 B.ani-L.aci-L.dayne-L.plan-L .Van 10 billion cell (2 billion ea) cap Take by mouth. 0 10/22/2010 03/29/2024 Discontinued Start: 10-22-2010 B.ani-L.aci-L. dayne-L.plan-L.Van 10 billion cell (2 billion ea) cap Take by mouth. 0 10/22/2010 Active Comment on above: Take by mouth. benzonatate 100 mg oral capsule (12 sources) Non-narcotic Antitussive Start: 06-16-19 14 End: 03-22-20 22 take 1 capsule by mouth every eight hours as needed for cough and cough benzonatate 100 mg capsule Indications: Cough Take 1 capsule by mouth three times daily as needed for Cough. Swallow whole please. 30 capsule 0 06/15/2013 03/22/2022 Discontinued Comment on above: Take 1 capsule by [facility] three times daily as needed for Cough. Swallow whole please. 12 hr buPROPion hydrochloride 150 mg extended release oral tablet (20 sources) Aminoketone Start: 05-04-19 End: 05-04-19 Bupropion Hcl 150 mg tablet sustained-release 12 hr Discontinued PO May 04, 2019 1:00am May 04, 2019 12:23pm Start: 05-04-2019 End: 05-04-2019 Bupropion Hcl Discontinued P O May 04, 2019 1:00am May 04, 2019 12:23pm calcium polycarbophil (1 source) Start: 05-19-2015 FIBERTAB 625 MG TABS as directed CALCIUM POLYCARBOPHIL Angel Fairchild MD cefdinir 300 mg oral capsule (4 sources) Cephalosporin Antibacterial Start: 01-17-2025 End: 01-26-2025 take 1 capsule by mouth twice daily Cefdinir 300 mg capsule Discontinued 300 mg PO TWICE A DAY 14 0 January 17, 2025 12:00am January 26, 2025 11:30am diazePAM 5 mg oral tablet (20 sources) Benzodiazepine Start: 05-08-2021 End: 05-31-2022 take 1 tablet by mouth at bedtime as needed Diazepam 5 mg tablet Discontinued 5 mg PO AT BEDTIME as needed May 08, 2021 1:00am May 31, 2022 10:54am diclofenac sodium 0.01 mg/mg topical gel (3 sources) Nonsteroidal Anti-inflammatory Drug Start: 04-20-2023 End: 05-18-2024 apply 4 g topically four times daily diclofenac (VOLTAREN ARTHRITIS PAIN) 1 % topical gel Apply 4 g to affected area four times daily. 100 g 04/20/2023 05/18/2024 Discontinued (Other) docusate sodium 100 mg oral tablet (2 sources) Start: 12-18-2010 End: 05-19-2015 take 1 tablet by mouth twice daily DOCUSATE SODIUM 100 MG TABS One tablet by mouth twice daily DOCUSATE SODIUM [id number] Angel Fairchild MD dronedarone 400 mg oral tablet (20 sources) Antiarrhythmic Start: 11-01-2022 End: 05-18-2024 take 1 tablet by mouth twice daily at mealtime Dronedarone (Multaq) 400 mg tablet Discontinued 400 mg PO TWICE A DAY 1 November 01, 2022 12:00am October 28, 2023 11:14am must administer with a meal/food DULoxetine 30 mg delayed release oral capsule (20 sources) Serotonin and Norepinephrine Reuptake Inhibitor Start: 01-01-2021 End: 05-08-2021 Duloxetine 30 mg capsule,delayed release(/EC) Discontinued NMA PO January 01, 2021 12:00am May 08, 2021 2:27pm Start: 01-01-2021 End: 05-08-2021 Duloxetine Discontinued EACH PO January 01, 2021 12:00am May 08, 2021 2:27pm ESTROGENS, CONJUGATED CREA (2 sources) Estrogen Start: 10-03-2010 PREMARIN CREA 2mg/mL, topical cream biest: Apply as directed ESTROGENS, CONJUGATED CREA [id number] Gloria Esparza Start: 10-03-2010 End: 10-02-2011 PREMARIN CREA 2mg/mL, topica l cream biest: Apply as directed ESTROGENS, CONJUGATED CREA [id number] Angel Fairchild MD ferrous gluconate 324 mg oral tablet (18 sources) Start: 04-25-2023 End: 07-20-2024 take 1 tablet by mouth once daily Ferrous Gluconate 324 mg (37.5 mg iron) tablet Discontinued 324 mg PO DAILY April 25, 2023 1:00am July 20, 2024 11:38am ferrous sulfate (5 sources) End: 05-18-2024 FERROUS SULFATE ORAL Take by mouth. 05/18/2024 Discontinued (Other) FERROUS SULFATE ORAL Take by mouth. Active FERROUS SULFATE ORAL Take by mouth. 0 Active Comment on above: Take by mouth. Fiber (1 source) Start: 05-21-2016 take 1 tablet by mouth once daily at bedtime [facility] FIBER GUMMIES 2 GM CHEW One tablet by mouth daily at bedtime FIBER [id number] Angel Fairchild MD furosemide 20 mg oral tablet (20 sources) Loop Diuretic Start: 08-07-2023 End: 08-21-2023 take 1 tablet by mouth once daily Furosemide 20 mg tablet Discontinued 20 mg PO DAILY 90 3 August 07, 2023 2:26pm August 21, 2023 9:33am Start: 05-14-2023 End: 08-07-2023 Furosemide 20 mg tablet Disc ontinued 20 mg PO .COMPLEX 30 0 June 09, 2023 9:12am August 07, 2023 2:27pm 20 mg orally prn for swelling. Call if needed more than 2 times per month; gabapentin 600 mg oral tablet (20 sources) Anti-epileptic Agent Start: 03-24-2022 End: 07-20-2024 take 1 tablet by mouth at bedtime Gabapentin 600 mg tablet Discontinued 600 mg PO AT BEDTIME May 31, 2022 1:00am July 20, 2024 11:25am Start: 05-22-2017 End: 05-08-2021 take 1 tablet by mouth at bedtime Gabapentin 600 mg tablet Discontinued 600 mg PO AT BEDTIME May 22, 2017 1:00am May 08, 2021 2:27pm Start: 05-19-2017 End: 05-22-2017 take 1 tablet by mouth once daily at bedtime Gabapentin 300 mg capsule Discontinued 0 PO AT BEDTIME May 19, 2017 1:00am May 22, 2017 11:15am 300mg. 2 tablets PO QHS Start: 05-21-2016 take 2 tablets by mo uth at bedtime NEURONTIN 300 MG CAPS Two tablets by mouth at bedtime. GABAPENTIN [id number] Angel Fairchild MD End: 03-22-2022 GABAPENTIN ORAL Take by mout h. 0 03/22/2022 Discontinued GABAPENTIN ORAL Take by mouth. 0 Active Comment on above: Take by mouth. LORazepam 0.5 mg oral tablet (2 sources) Benzodiazepine Start: 1 End: 5 take 1 tablet by mouth at bedtime ATIVAN 0.5 MG TABS One tablet by mouth at bedtime. LORAZEPAM [id number] Angel Fairchild MD losartan potassium 25 mg oral tablet (20 sources) Angiotensin 2 Receptor Daniel Start: 3 End: 4 Losartan 25 mg tablet Discontinued 12.5 mg PO DAILY November 04, 2022 1:20pm April 15, 2023 6:45pm Start: 11-04-2022 End: 04-15-2023 take 12.5 mg by mouth once daily Losartan Discontinued 12.5 MG PO DAILY November 04, 2022 1:20pm April 15, 2023 6:45pm Start: 06-13-2022 End: 11-04-2022 take 1 tablet by mouth once daily Losartan 25 mg tablet Discontinued 25 mg PO DAILY 90 June 13, 2022 1:00am November 04, 2022 1:21pm METHYLPREDNISOLONE (1 source) Corticosteroid Start: 09-03-2011 End: 09-08-2011 MEDROL 4 MG TBPK take as directed: 5 pills day one, 4 pills day 2, 3 pills day 3, 2 pills day 4, 1 pill day 5 METHYLPREDNISOLONE [id number] Georgia Romano MULTIPLE VITAMIN (2 sources) Start: 10-03-2010 take 1 tablet by mouth once daily MULTIVITAMINS TABS One tablet by mouth daily MULTIPLE VITAMIN [id number] Gloria Esparza Start: 10-03-2010 End: 10-02-2011 take 1 tablet by mouth once daily MULTIVITAMINS TABS One tablet by mouth daily MULTIPLE VITAMIN [id number] Angel Fairchild MD niacin 500 mg oral tablet (2 sources) Nicotinic Acid Start: 10-03-2010 End: 10-02-2011 take 1 tablet by mouth three times daily NIACIN 500 MG TABS One tablet by mouth three times daily NIACIN [id number] Angel Fairchild MD nitrofurantoin, macrocrystals 25 mg / nitrofurantoin, monohydrate 75 mg oral capsule (12 sources) Nitrofuran Antibacterial Start: 11-18-2024 End: 01-12-2025 take 1 capsule by mouth twice daily at mealtime Nitrofurantoin Monohyd/M-Cryst (Macrobid) 100 mg capsule Discontinued 100 mg PO TWICE A DAY 14 0 November 18, 2024 12:00am January 12, 2025 11:37am must administer with a meal/food omeprazole 40 mg oral tablet (2 sources) Proton Pump Inhibitor Start: 10-03-2010 End: 10-02-2011 take 1 tablet by mouth once daily PRILOSEC 40 MG CPDR One tablet by mouth daily OMEPRAZOLE [id number] Angel Fairchild MD OTC PRODUCT (18 sources) Start: 10-22-2010 End: 03-29-2024 OTC PRODUCT Vitamin D 5000units per day 0 10/22/2010 03/29/2024 Discontinued Start: 10-22-2010 OTC PRODUCT Vi tamin D 5000units per day 0 10/22/2010 Active Comment on above: Vitamin D 5000units per day 24 hr oxybutynin chloride 10 mg extended release oral tablet (20 sources) Cholinergic Muscarinic Antagonist Start: 2 End: 3 take 1 tablet by mouth once daily Oxybutynin Chloride 10 mg tablet extended release 24hr Discontinued 10 mg PO DAILY May 08, 2021 1:00am May 31, 2022 10:53am pantoprazole 40 mg delayed release oral tablet (20 sources) Proton Pump Inhibitor Start: 9 End: 3 take 1 tablet by mouth once daily Pantoprazole 40 mg tablet,delayed release (DR/EC) Discontinued 40 mg PO DAILY May 08, 2021 2:26pm May 31, 2022 10:54am Comment on above: Pantoprazole Sodium Active 40 MG DAILY May 26, 2018 9:59am polypodium leucotomos 240 mg oral capsule (20 sources) Start: 8 End: 1 take 1 tablet by mouth once daily Polypodium Leucotomos Extract 240 mg capsule Discontinued 0 PO daily 0 May 19, 2017 1:00am May 09, 2020 12:15pm 240 Mg. 1 Tablet PO QDAY Start: 11-03-2013 take 1 tablet by dereje th once daily HELIOCARE 240 MG CAPS One tablet by mouth daily POLYPODIUM LEUCOTOMOS [id number] Ileana Beltrán PA-C End: 03-22-2022 POLYPODIUM LEUCOTOMOS EXTRAC T (HELIOCARE ORAL) Take by mouth. 0 03/22/2022 Discontinued POLYPODIUM LEUCO TOMOS EXTRACT (HELIOCARE ORAL) Take by mouth. 0 Active Comment on above: Take by mouth. PROBIOTIC PRODUCT (1 source) Start: 05-19-2015 take 1 tablet by mouth once daily PROBIOTIC DAILY CAPS One tablet by mouth daily PROBIOTIC PRODUCT [id number] Angel Fairchild MD PROGESTERONE MICRONIZED CAPS (2 sources) Progesterone Start: 10-03-2010 PROMETRIUM CAPS 100%, 100mg 1 tablet by mouth daily (Compounded) PROGESTERONE MICRONIZED CAPS [id number] Gloria Esparza Start: 10-03-2010 End: 10-02-2011 PROMETRIUM CAPS 100%, 100mg 1 tablet by mouth daily (Compounded) PROGESTERONE MICRONIZED CAPS [id number] Angel Fairchild MD rOPINIRole 0.25 mg oral tablet (13 sources) Nonergot Dopamine Agonist Start: 07-11-2021 End: 03-27-2022 take 1 tablet by mouth every hour at bedtime rOPINIRole (REQUIP) 0.25 mg tablet Take 0.25 mg by mouth as directed. 1 hour prior to bedtime 0 07/11/2021 03/27/2022 Discontinued Comment on above: Take 0.25 mg by mout h as directed. 1 hour prior to bedtime solifenacin succinate 10 mg oral tablet (20 sources) Cholinergic Muscarinic Antagonist Start: 03-27-2022 End: 10-03-2022 take 1 tablet by mouth once daily Solifenacin 10 mg tablet Discontinued 10 mg PO DAILY May 31, 2022 1:00am October 03, 2022 9:54am spironolactone 25 mg oral tablet (20 sources) Aldosterone Antagonist Start: 11-04-2022 End: 09-29-2024 take 1 tablet by mouth once daily Spironolactone 25 mg tablet Discontinued 25 mg PO DAILY 90 3 September 27, 2024 11:54am September 29, 2024 11:07am 24 hr tolterodine tartrate 4 mg extended release oral capsule (10 sources) Cholinergic Muscarinic Antagonist Start: 09-26-2021 End: 09-21-2022 take 1 capsule by mouth once daily tolterodine ER (DETROL LA) 4 mg 24 hr capsule Take 1 capsule by mouth once daily. 30 capsule 11 09/26/2021 03/27/2022 Discontinued Comment on above: Take 1 capsule by mo uth once daily. 24 hr trospium chloride 60 mg extended release oral capsule (16 sources) Cholinergic Muscarinic Antagonist Start: 01-02-2022 End: 03-29-2024 take 1 capsule by mouth once daily Trospium (SANCTURA SR) 60 mg cp24 Take 1 capsule by mouth once daily. 30 capsule 3 01/08/2022 03/29/2024 Discontinued Comment on above: Take 1 capsule by [facility] once daily. Vitamin B 12 (1 source) Vitamin B12 Start: 05-12-2014 VITAMIN B-12 1000 MCG/15ML LIQD injections, as directed CYANOCOBALAMIN [id number] Angel Fairchild MD B COMPLEX VITAMINS (2 sources) Start: 10-03-2010 take 1 tablet by mouth once daily VITAMIN B COMPLEX TABS One tablet by mouth daily B COMPLEX VITAMINS [id number] Gloria Esparza Start: 10-03-2010 End: 05-12-2014 take 1 tablet by mouth once daily VITAMIN B COMPLEX TABS One tablet by mouth daily B COMPLEX VITAMINS [id number] Angel Fairchild MD Problems Active Problems Problem Classification Problem Date Documented Da te Episodic/Chronic Abdominal pain (20 sources) Epigastric pain; Translations: [Epigastric pain] 06-27-2006 Episodic Anxiety disorders (20 sources) Anxiety; Translations: [Anxiety disorder, unspecified] Onset: 10-24-2010 Chronic Cardiac and circulatory congenital anomalies (20 sources) Bicuspid aortic valve; Translations: [Congenital insufficiency of aortic valve] 05-01-2019 Chronic Cardiac dysrhythmias (20 sources) Atrial fibrillation; Translations: [Unspecified atrial fibrillation] 10-03-2022 Chronic Complications of surgical procedures or medical care (3 sources) Prolapse of vaginal vault after hysterectomy; Translations: [Prolapse of vaginal vault after hysterectomy] Onset: 12-10-2021 Chronic Coronary atherosclerosis and other heart disease (2 sources) Angina pectoris; Translations: [Angina pectoris, unspecified] Onset: 10-03-2010 Resolved: 05-17-2016 05-17-2016 Chronic Disorders of lipid metabolism (20 sources) Hyperlipidemia; Translations: [Hyperlipidemia, unspecified] Onset: 07-22-2003 10-03-2010 Chronic Essential hypertension (20 sources) Hypertensive disorder; Translations: [Essential (primary) hypertension] Onset: 10-23-2010 12-10-2021 Chronic Gastritis and duodenitis (20 sources) Acute gastritis; Translations: [Acute gastritis without bleeding] 06-27-2006 Episodic Genitourinary symptoms and ill-defined conditions (20 sources) Urge incontinence of urine; Translations: [Urge incontinence] Onset: 07-24-2021 Chronic Genitourinary symptoms and ill-defined conditions (20 sources) Urgent desire to urinate; Translations: [Urgency of urination] Onset: 09-26-2021 Episodic Gout and other crystal arthropathies (1 source) Other secondary gout, right ankle and foot; Translations: [Other secondary gout, right ankle and foot] Onset: 06-29-2024 Chronic Heart valve disorders (20 sources) Nonrheumatic mitral (valve) insufficiency; Translations: [Aortic valve stenosis] Onset: 10-03-2010 10-03-2010 Chronic Comment on above: Aortic valve replace ment with 23-mm Elaina-Pérez pericardial valve. 10/23/2010 Malaise and fatigue (17 sources) Fatigue; Translations: [Other fatigue] 10-28-2023 Episodic Nonspecific chest pain (20 sources) Chest pain; Translations: [Chest pain, unspecified] 05-31-2022 Episodic Osteoarthritis (20 sources) Osteoarthritis of hip; Translations: [Osteoarthritis of right hip joint] Onset: 05-23-2015 05-23-2015 Chronic Other acquired deformities (20 sources) Spondylolysis; Translations: [Spondylolysis, lumbar region] 01-01-2021 Episodic Other aftercare (6 sources) Anticoagulant control - finding; Translations: [terminologist (current) use of anticoagulants] 01-20-2025 Episodic Other connective tissue disease (17 sources) Swelling of lower limb; Translations: [Other specified soft tissue disorders] 08-07-2023 Episodic Other non-traumatic joint disorders (1 source) Pain of left wrist; Translations: [Pain in left wrist] 04-21-2023 Episodic Other nutritional; endocrine; and metabolic disorders (1 source) Body mass index (BMI) 32.0-32.9, adult; Translations: [Body mass index (BMI) 32.0-32.9, adult] Onset: 04-30-2013 05-19-2015 Chronic Other nutritional; endocrine; and metabolic disorders (1 source) Body mass index (BMI) 31.0-31.9, adult; Translations: [Body mass index (BMI) 31.0-31.9, adult] Onset: 04-30-2013 04-30-2013 Chronic Other nutritional; endocrine; and metabolic disorders (12 sources) Obese class I; Translations: [Obesity, unspecified] Onset: 12-10-2021 12-10-2021 Chronic Other screening for suspected conditions (not mental disorders or infectious disease) (7 sources) Patient encounter status; Translations: [Encounter for screening mammogram for malignant neoplasm of breast] Onset: 05-19-2024 Episodic Prolapse of female genital organs (20 sources) Vaginal enterocele; Translations: [Vaginal enterocele] Onset: 12-29-2020 Chronic Residual codes; unclassified (1 source) Obstructive sleep apnea syndrome; Translations: [Obstructive sleep apnea (adult) (pediatric)] Onset: 12-08-2014 12-08-2014 Chronic Residual codes; unclassified (1 source) Localized edema; Translations: [Localized edema] Onset: 01-13-2025 Episodic Spondylosis; intervertebral disc disorders; other back problems (20 sources) Lumbar post-laminectomy syndrome; Translations: [Postlaminectomy syndrome, not elsewhere classified] Onset: 07-27-2003 08-08-2003 Chronic Spondylosis; intervertebral disc disorders; other back problems (20 sources) Disorder of sacrum; Translations: [Lumbar radiculopathy] Onset: 07-27-2003 09-03-2011 Episodic Thyroid disorders (20 sources) Hypothyroidism; Translations: [Hypothyroidism, unspecified] Onset: 07-22-2003 10-03-2022 Chronic Unclassified (20 sources) 10/23/10: AVR #23 CE Onset: 10-23-2010 Unclassified (1 source) Post-Op Visit Onset: 12-26-2021 Urinary tract infections (15 sources) Urinary tract infectious disease; Translations: [Urinary tract infection, site not specified] Onset: 02-02-2025 11-17-2024 Episodic Past or Other Problems Problem Classification Problem Date Documented Date Episodic/Chronic Cardiac dysrhythmias (20 sources) Sinus tachycardia; Translations: [Tachycardia, unspecified] Onset: 10-28-2010 Episodic Coagulation and hemorrhagic disorders (5 sources) Thrombocytopenic disorder; Translations: [Thrombocytopenia, unspecified] Onset: 10-25-2010 Resolved: 10-27-2010 Chronic Deficiency and other anemia (1 source) Iron deficiency anemia, unspecified; Translations: [Iron deficiency anemia, unspecified] Onset: 07-05-2024 Episodic Other circulatory disease (20 sources) Low blood pressure; Translations: [Hypotension, unspecified] Onset: 10-24-2010 Episodic Other connective tissue disease (1 source) Enthesopathy of knee; Translations: [Other bursitis of knee, unspecified knee] 09-03-2011 Episodic Other connective tissue disease (1 source) Trochanteric bursitis; Translations: [Trochanteric bursitis, unspecified hip] 09-03-2011 Episodic Other connective tissue disease (20 sources) Muscle pain; Translations: [Myalgia and myositis, unspecified] Onset: 07-22-2003 08-08-2003 Episodic Other connective tissue disease (1 source) Posterior tibial tendinitis, right leg; Translations: [Posterior tibial tendinitis, right leg] Onset: 09-20-2024 Episodic Other nervous system disorders (20 sources) Postoperative pain ; Translations: [Other acute postprocedural pain] Onset: 10-23-2010 Episodic Results Test Name Value Interpretation Reference Range Facility Laboratory - Chemistry and C hemistry - challengeOrdered By: Lynn Christensen on 02-02-2025 Bilirubin Ql (U) Negative [facility] Glucose Ql (U) Negative [facility] Ketones Ql (U) Negative [facility] pH (U) 6 [pH] [facility] Specific gravity (U) [Rel density] 1.015 [facility] Urobilinogen (U) [Mass/Vol] 0.0732093 mg/dL [facility] Laboratory - Hematology and Cell countsOrdered By: Lynn Christensen on 02-02-2025 Hemoglobin Ql (U) Trace [facility] Laboratory - Specimen inform ationOrdered By: Lynn Christensen on 02-02-2025 Color (U) YELLOW [facility] Laboratory - UrinalysisOrder ed By: Lynn Christensen on 02-02-2025 Nitrite Ql (U) Negative [facility] Protein Ql (U) Negative [facility] MR/Arianna 02-02-2025 MR/[facility] [address], [address] [place] [address] OFFICE VISIT Date of Service: 02/02/25 MR#: [id number] Acct: [id number] Name: FABRICE MOON Rep #: [id number] : 1945 Provider: Dr. Lynn Tejada i, MD Age/Sex: 79/F Location: [facility] Status: Signed Intake Vital Signs 01/12/25 11:32 01/26/25 11:35 02/02/25 11:12 Height 5 ft 5 in 5 ft 5 in 5 ft 5 in Weight: 184 lb 184 lb BMI 30.6 30.6 BP 124/80 H 126/78 H Pulse 70 70 Temp 98.1 F 97.9 F Intake Visit Reasons: PTNS Chief Complaint: PTNS Ssis Architect Required: No Is patient in pain?: No Allergies amitriptyline (From Elavil) Adverse Reaction (Severe, Verified 01/20/25 11:17) Unknown tramadol Adverse Reaction (Severe, Verified 01/20/25 11:17) Unknown valdecoxib (From Bextra) Adverse Reaction (Severe, Verified 01/20/25 11:17) Unknown amlodipine Adverse Reaction (Intermediate, Verified 01/20/25 11:17) Foot and ankle edema Medications ???Medication ???Instructions ???Recorded ???Confirmed ???Type coenzyme Q10 100 mg tablet 100 mg PO QDAY #90 tabs 05/22/17 1 Rx levothyroxine 137 mcg tablet 112 mcg PO DAILY 01/07/23 02/02/25 History fesoterodine 4 mg tablet,extended 4 mg PO QDAY 02/04/24 02/02/25 Hi story release 24 hr (Toviaz) cholecalciferol (vitamin D3) 50 4,000 unit PO QDAY 07/20/24 History mcg (2,000 unit) tablet hydrocodone-acetamin ophen 5-325mg 1 tab PO QHS PRN 07/20/24 5 History 5mg-325mg spironolactone 25 mg tablet 25 mg PO DAILY #90 TABLETS 5 02/02/25 Rx metoprolol tartrate 25 mg tablet 12.5 mg (1/2 x 25 mg) PO BID dose 12/22/24 02/02/25 Rx has been decreased. #90 tabs vibegron 75 mg tablet (Gemtesa) 75 mg PO QDAY 12/29/24 02/02/25 Hi story apixaban 5 mg tablet (Eliquis) 5 mg PO BID #180 tabs 01/20/25 Rx [id number] intramuscular ea IM 01/20/25 02/02/25 History trazodone 100 mg tablet 100 mg PO QHS 01/20/25 02/02/25 Hi story Have you fallen in the past year?: No PFSH Medical History PAF (paroxysmal atrial fibrillation) New onset atrial fibrillation Fibromyalgia Obesity Hypothyroidism Nonrheumatic aortic (valve) stenosis Bicuspid aortic valve Hyperlipidemia Obstructive sleep apnea Surgical History History of ankle surgery Hx of shoulder surgery History of foot surgery History of lumbar surgery History of bladder suspension procedure History of hysterectomy History of left heart catheterization (09/06/10) History of aortic valve replacement with bioprosthetic valve (10/23/10) Family History Father Lung cancer Mother Cancer kidney cancer Heart disease PPM Social History Smoking Status: Never smoker HPI HPI Urology Chief Complaint: PTNS Details: FABRICE MOON, is a 79 F. She is voiding about 10-12 time during the day and 2-3 times at night. The incontinence is improving. She is going through 2-3 pads a day. She is continuing to work on level one management with diet, fluid control and bladder training. She is not having any issues with her skin or ankle after treatments. She is happy with this treatment plan. ROS Const Constitutional: No chills, fatigue, fever(s), headache(s), night sweats, weakness, weight change, abnormal sleep pattern or change in appetite Eyes Eyes: No change in vision ENT ENT: No headache(s) or dry mouth Resp Respiratory: No cough, chest congestion, shortness of breath or wheezing Cardio Cardiology: Positive for other (No chest pain.); No shortness of breath, irregular heart rhythm or lightheadedness Gastro GI: Positive for other (No nausea.); No abdominal pain, change in bowel habits, constipation, diarrhea or vomiting Musc Musculoskeletal: No abnormal gait Skin Skin: No yellowing of the eye, lesions, itchy eyes, rash or skin ulcer Neuro Neurology: No abnormal gait, confusion, dizziness, weakness, headache(s) or memory loss Psych Psychiatric: No abnormal sleep pattern, No change in appetite, No confusion and No memory loss Endo Endocrine: No fatigue, increased thirst/drinking or weight change Aller/Imm Allergy/Immunologic: No itchy eyes or wheezing Evan/Lymp Hematologic/Lymphati c: No easy bleeding, easy bruising or enlarged lymph nodes Exam Const General: cooperative, healthy appearing, comfortable and no acute distress HENMT Head: normocephalic and atraumatic Ears: hearing grossly normal bilaterally and external ears normal Nose: external nose normal Eyes General: appearance normal, both eyes and all related structures Neck (more content not included)... Normal [facility] No Panel InformationOrdered By: Lynn Christensen on 02-02-2025 Urine Leukocytes Negatve [facility] MR/BMS.Dunia 01-26-2025 MR/BMS.AD[facility] [address], [address] [place] [address] OFFICE VISIT Date of Service: 01/26/25 MR#: [id number] Acct: [id number] Name: FABRICE MOON Rep #: [id number] : 1945 Provider: Dr. Lynn Tejada i, MD Age/Sex: 79/F Location: [facility] [place] Status: Signed Intake Vital Signs 12/29/24 11:52 01/20/25 08:51 01/26/25 11:35 Height 5 ft 5 in 5 ft 5 in 5 ft 5 in Weight: 184 lb 184 lb BMI 30.6 30.6 BP 113/71 124/80 H Blood Pressure Location Lt brachial Position Sitting Respiration 16 Pulse 52 L 70 Pulse Source Monitor Temp 98.1 F Pulse Oximetry (%) 94 Oxygen Delivery Method room air Intake Visit Reasons: PTNS Chief Complaint: PTNS Ssis Architect Required: No Is patient in pain?: No Allergies amitriptyline (From Elavil) Adverse Reaction (Severe, Verified 01/20/25 11:17) Unknown tramadol Adverse Reaction (Severe, Verified 01/20/25 11:17) Unknown valdecoxib (From Bextra) Adverse Reaction (Severe, Verified 01/20/25 11:17) Unknown amlodipine Adverse Reaction (Intermediate, Verified 01/20/25 11:17) Foot and ankle edema Medications ???Medication ???Instructions ???Recorded ???Confirmed ???Type coenzyme Q10 100 mg tablet 100 mg PO QDAY #90 tabs 05/22/17 1 Rx levothyroxine 137 mcg tablet 112 mcg PO DAILY 01/07/23 01/26/25 History fesoterodine 4 mg tablet,extended 4 mg PO QDAY 02/04/24 01/26/25 Hi story release 24 hr (Toviaz) cholecalciferol (vitamin D3) 50 4,000 unit PO QDAY 07/20/24 History mcg (2,000 unit) tablet hydrocodone-acetamin ophen 5-325mg 1 tab PO QHS PRN 07/20/24 5 History 5mg-325mg spironolactone 25 mg tablet 25 mg PO DAILY #90 TABLETS 5 01/26/25 Rx metoprolol tartrate 25 mg tablet 12.5 mg (1/2 x 25 mg) PO BID dose 12/22/24 01/26/25 Rx has been decreased. #90 tabs vibegron 75 mg tablet (Gemtesa) 75 mg PO QDAY 12/29/24 01/26/25 Hi story apixaban 5 mg tablet (Eliquis) 5 mg PO BID #180 tabs 01/20/25 Rx [id number] intramuscular ea IM 01/20/25 01/26/25 History trazodone 100 mg tablet 100 mg PO QHS 01/20/25 01/26/25 Hi story Have you fallen in the past year?: No PFSH Medical History PAF (paroxysmal atrial fibrillation) New onset atrial fibrillation Fibromyalgia Obesity Hypothyroidism Nonrheumatic aortic (valve) stenosis Bicuspid aortic valve Hyperlipidemia Obstructive sleep apnea Surgical History History of ankle surgery Hx of shoulder surgery History of foot surgery History of lumbar surgery History of bladder suspension procedure History of hysterectomy History of left heart catheterization (09/06/10) History of aortic valve replacement with bioprosthetic valve (10/23/10) Family History Father Lung cancer Mother Cancer kidney cancer Heart disease PPM Social History Smoking Status: Never smoker HPI HPI Urology Chief Complaint: PTNS Details: FABRICE MOON, is a 79 F. She is voiding about 10-13 time during the day and 2-4 times at night. The incontinence is somewhat improving. She is going through 1-3 pads a day. She is continuing to work on level one management with diet, fluid control and bladder training. She is not having any issues with her skin or ankle after treatments. She is happy with this treatment plan. ROS Const Constitutional: No chills, fatigue, fever(s), headache(s), night sweats, weakness, weight change, abnormal sleep pattern or change in appetite Eyes Eyes: No change in vision ENT ENT: No headache(s) or dry mouth Resp Respiratory: No cough, chest congestion, shortness of breath or wheezing Cardio Cardiology: Positive for other (No chest pain.); No shortness of breath, irregular heart rhythm or lightheadedness Gastro GI: Positive for other (No nausea.); No abdominal pain, change in bowel habits, constipation, diarrhea or vomiting Musc Musculoskeletal: No abnormal gait Skin Skin: No yellowing of the eye, lesions, itchy eyes, rash or skin ulcer Neuro Neurology: No abnormal gait, confusion, dizziness, weakness, headache(s) or memory loss Psych Psychiatric: No abnormal sleep pattern, No change in appetite, No confusion and No memory loss Endo Endocrine: No fatigue, increased thirst/drinking or weight change Aller/Imm Allergy/Immunologic: No itchy eyes or wheezing Evan/Lymp Hematologic/Lymphati c: No easy bleeding, easy bruising or enlarged lymph nodes Exam Const General: cooperative, healthy appearing, comfortable and no acute distress HENMT Head: normocephalic and atraumatic Ears: heari (more content not included)... Normal [facility] Cardiology Visit Reporton Cardiology Visit Report [facility] [address] [place] [address] OFFICE VISIT Date of Service: 01/20/25 MR#: [id number] Acct: [id number] Name: FABRICE MOON Rep #: [id number] : 1945 Provider: SIS Mcarthur Age/Sex: 79/F Location: [facility] Status: Signed HPI HPI History of Present Illness Details: The patient is an 79-year-old female with a history of aortic valve disease s/p bioprosthetic aortic valve replacement in 2010, HTN, HLD, iron deficiency anemia, atrial fibrillation s/p cardioversion in 12/2022, and ILEANA, presenting for follow-up. She reports ongoing issues with her foot since the end of June, which has led to worsening back pain. She has been using a cast and boots for her foot and recently completed physical therapy. Her orthopedic surgeon has advised against surgery due to her age and anticoagulation with Eliquis. She notes that her back pain is not as well controlled as before, and the efficacy of her usual back injections has diminished. She is currently taking Eliquis 5 mg BID, metoprolol 12.5 mg BID, and spironolactone 25 mg daily. She is also being treated for a UTI and reports increased urinary frequency due to an overactive bladder. She denies any irregular heartbeats, lightheadedness, or dizziness, but does report occasional shakiness, which she attributes to her foot and back issues. She is compliant with her CPAP therapy for ILEANA. Intake Vital Signs 07/20/24 11:01 12/29/24 11:52 01/20/25 08:51 Height 5 ft 5 in 5 ft 5 in 5 ft 5 in Weight: 184 lb BMI 30.6 BP 113/71 Blood Pressure Location Lt brachial Position Sitting Respiration 16 Pulse 52 L Pulse Source Monitor Pulse Oximetry (%) 94 Oxygen Delivery Method room air Intake Visit Reasons: 6 M FU Ssis Architect Required: No Accompanied by: Self Is patient in pain?: Yes Allergies amitriptyline (From Elavil) Adverse Reaction (Severe, Verified 01/20/25 11:17) Unknown tramadol Adverse Reaction (Severe, Verified 01/20/25 11:17) Unknown valdecoxib (From Bextra) Adverse Reaction (Severe, Verified 01/20/25 11:17) Unknown amlodipine Adverse Reaction (Intermediate, Verified 01/20/25 11:17) Foot and ankle edema Medications ???Medication ???Instructions ???Recorded ???Confirmed ???Type coenzyme Q10 100 mg tablet 100 mg PO QDAY #90 tabs 05/22/17 1 Rx levothyroxine 137 mcg tablet 112 mcg PO DAILY 01/07/23 01/20/25 History fesoterodine 4 mg tablet,extended 4 mg PO QDAY 02/04/24 01/20/25 Hi story release 24 hr (Toviaz) cholecalciferol (vitamin D3) 50 4,000 unit PO QDAY 07/20/24 History mcg (2,000 unit) tablet hydrocodone-acetamin ophen 5-325mg 1 tab PO QHS PRN 07/20/24 5 History 5mg-325mg spironolactone 25 mg tablet 25 mg PO DAILY #90 TABLETS 5 01/20/25 Rx metoprolol tartrate 25 mg tablet 12.5 mg (1/2 x 25 mg) PO BID dose 12/22/24 01/20/25 Rx has been decreased. #90 tabs vibegron 75 mg tablet (Gemtesa) 75 mg PO QDAY 12/29/24 01/20/25 Hi story cefdinir 300 mg capsule 300 mg PO BID #14 caps 01/17/25 Rx apixaban 5 mg tablet (Eliquis) 5 mg PO BID #180 tabs 01/20/2501/06 Rx [id number] intramuscular ea IM 01/20/25 01/20/25 History trazodone 100 mg tablet 100 mg PO QHS 01/20/25 01/20/25 Hi story Ejection fraction %: 65 Have you fallen in the past year?: No Nurse's Note: Pt has an episode about once a month where she wakes up with a funny feeling in the midsternal area of her chest. She said she's not sure what it is, but she gets up and takes a shot of apple cider vinegar with water and it goes away. Pt has an overactive bladder and sleep apnea and she doesn't sleep well. She blames her fatigue on this. [facility] Medical History PAF (paroxysmal atrial fibrillation) New onset atrial fibrillation Fibromyalgia Obesity Hypothyroidism Nonrheumatic aortic (valve) stenosis Bicuspid aortic valve Hyperlipidemia Obstructive sleep apnea Surgical History History of ankle surgery Hx of shoulder surgery History of foot surgery History of lumbar surgery History of bladder suspension procedure History of hysterectomy History of left heart catheterization (09/06/10) History of aortic valve replacement with bioprosthetic valve (10/23/10) Family History Father Lung cancer Mother Cancer kidney cancer Heart disease PPM Social History Smoking Status: Never smoker ROS Const Const: Positive for fatigue; Negative for weakness or headache(s) Eyes Eyes: Negative for change in vision ENT (more content not included)... Normal [facility] MR/BMSОльга 01-19-2025 MR[facility]NA [facility] [address], [address] [place] [address] OFFICE VISIT Date of Service: 01/19/25 MR#: [id number] Acct: [id number] Name: FABRICE MOON Rep #: [id number] : 1945 Provider: Dr. Lynn Tejada i, MD Age/Sex: 79/F Location: [facility] Status: Signed Intake Vital Signs 12/29/24 11:52 01/12/25 11:32 01/19/25 12:56 Height 5 ft 5 in 5 ft 5 in 5 ft 5 in Weight: 178 lb 178 lb BMI 29.6 29.6 BP 126/80 H 124/82 H Respiration 74 H Pulse 74 Temp 98.1 F 98 F Intake Visit Reasons: PTNS Chief Complaint: PTNS Ssis Architect Required: No Is patient in pain?: No Allergies amitriptyline (From Elavil) Adverse Reaction (Severe, Verified 01/20/25 11:17) Unknown tramadol Adverse Reaction (Severe, Verified 01/20/25 11:17) Unknown valdecoxib (From Bextra) Adverse Reaction (Severe, Verified 01/20/25 11:17) Unknown amlodipine Adverse Reaction (Intermediate, Verified 01/20/25 11:17) Foot and ankle edema Medications ???Medication ???Instructions ???Recorded ???Confirmed ???Type coenzyme Q10 100 mg tablet 100 mg PO QDAY #90 tabs 05/22/17 1 Rx levothyroxine 137 mcg tablet 112 mcg PO DAILY 01/07/23 01/20/25 History fesoterodine 4 mg tablet,extended 4 mg PO QDAY 02/04/24 01/20/25 Hi story release 24 hr (Toviaz) cholecalciferol (vitamin D3) 50 4,000 unit PO QDAY 07/20/24 History mcg (2,000 unit) tablet hydrocodone-acetamin ophen 5-325mg 1 tab PO QHS PRN 07/20/24 5 History 5mg-325mg spironolactone 25 mg tablet 25 mg PO DAILY #90 TABLETS 5 01/20/25 Rx metoprolol tartrate 25 mg tablet 12.5 mg (1/2 x 25 mg) PO BID dose 12/22/24 01/20/25 Rx has been decreased. #90 tabs vibegron 75 mg tablet (Gemtesa) 75 mg PO QDAY 12/29/24 01/20/25 Hi story cefdinir 300 mg capsule 300 mg PO BID #14 caps 01/17/25 Rx apixaban 5 mg tablet (Eliquis) 5 mg PO BID #180 tabs 01/20/2501/06 Rx [id number] intramuscular ea IM 01/20/25 01/20/25 History trazodone 100 mg tablet 100 mg PO QHS 01/20/25 01/20/25 Hi story Have you fallen in the past year?: No PFSH Medical History PAF (paroxysmal atrial fibrillation) New onset atrial fibrillation Fibromyalgia Obesity Hypothyroidism Nonrheumatic aortic (valve) stenosis Bicuspid aortic valve Hyperlipidemia Obstructive sleep apnea Surgical History History of ankle surgery Hx of shoulder surgery History of foot surgery History of lumbar surgery History of bladder suspension procedure History of hysterectomy History of left heart catheterization (09/06/10) History of aortic valve replacement with bioprosthetic valve (10/23/10) Family History Father Lung cancer Mother Cancer kidney cancer Heart disease PPM Social History Smoking Status: Never smoker HPI HPI Urology Chief Complaint: PTNS Details: FABRICE MOON, is a 79 F. She is voiding about 10 time during the day and 1-2 times at night. The incontinence is improving. She is going through 4 pads a day. She is continuing to work on level one management with diet, fluid control and bladder training. She is not having any issues with her skin or ankle after treatments. She is happy with this treatment plan. ROS Const Constitutional: No chills, fatigue, fever(s), headache(s), night sweats, weakness, weight change, abnormal sleep pattern or change in appetite Eyes Eyes: No change in vision ENT ENT: No headache(s) or dry mouth Resp Respiratory: No cough, chest congestion, shortness of breath or wheezing Cardio Cardiology: Positive for other (No chest pain.); No shortness of breath, irregular heart rhythm or lightheadedness Gastro GI: Positive for other (No nausea.); No abdominal pain, change in bowel habits, constipation, diarrhea or vomiting Musc Musculoskeletal: No abnormal gait Skin Skin: No yellowing of the eye, lesions, itchy eyes, rash or skin ulcer Neuro Neurology: No abnormal gait, confusion, dizziness, weakness, headache(s) or memory loss Psych Psychiatric: No abnormal sleep pattern, No change in appetite, No confusion and No memory loss Endo Endocrine: No fatigue, increased thirst/drinking or weight change Aller/Imm Allergy/Immunologic: No itchy eyes or wheezing Evan/Lymp Hematologic/Lymphati c: No easy bleeding, easy bruising or enlarged lymph nodes Exam Const General: cooperative, healthy appearing, comfortable and no acute distress HENMT Head: normocephalic and atraumatic Ears: hearing grossly normal bilaterally and external ears normal Nose: external nose normal (more content not included)... Normal [facility] PT D/C Summary (1)on 025 PT D/C Summary (1) [facility] Physical Therapy [facility] [address] [place] [address] / REHABILITATION SERVICES DISCHARGE SUMMARY MR#: [id number] Acct: [id number] Name: FABRICE MOON Rep #: [id number] : 1945 79 From: Maryana Guerrero MPT Referring Dr.: ANKIT Medeiros Status: REG RCR Insurance: MEDICARE PART A B [employer] SR SUPPLEMENT INS Discharge Summary D/C summary: It has been my pleasure to treat FABRICE MOON referred by Dr. Christiano Medeiros, ANKIT, with the diagnosis of R Post tib tendonitis and dysfunction and arthritis for a total of 8 visit(s). Discharge Date: 01/19/25 Please see the following information for a summary of their discharge status. Subjective Subjective: She got new shoes, they are ugly but she feels comfortable. She reports that her foot is a lot better. Her back has been bothering her due to walking weird. Pain R ankle pain: Pain Intensity (Out of 10): 1 Overall Improvement % Improvement: 65 Objective Objective/Function: R ankle AROM:4 degrees DF, 50 degrees PF, 18 INV, 12 EV L ankle AROM: DF 4, PF 40, INV 14, EV 4) LE MMT: R ankle DF 9.3 and PF 10.8, INV 5.2 and EV 7.4 L ankle DF 5.9, 10.5, 5.7 and 4). Goals Goal 1:: I HEP Goal Progress: Goal Met Goal 2:: Be able to walk with no antalgic gait and swing leg passes stance leg B with least restrictive device Goal 3:: Increase R ankle AROM (at the time of the eval: R ankle AROM:2 degrees DF, 50 degrees PF, 18 INV, 6 EV L ankle AROM: DF 4, PF 40, INV 14, EV 4) Goal 4:: Increase R ankle strength (at the time of the eval: LE MMT: R ankle DF 6.2 and PF 8, INV 3.9 and EV 3.5 L ankle DF 5.9, 10.5, 5.7 and 4). Plan Plan: 2X/ week for 4 weeks for R ankle stretching, strengthening, balance, gait training and US to the R post tib insertion with HEP HEP: seated heel and toe raises, seated soleus stretch with strap and seated gastroc stretch with strap D/C Information Discharge Comments: DC PT to HEP d/c sentence: If there are questions or concerns regarding this patient's physical therapy, please feel free to call me at [phone]. Thank you for the referral of this patient. Sincerely, Maryana Guerrero, MPT Balance/Gait/Functio nal tests Balance/Special Test Scores Lower Extremity Functional Score: 46 Improvement % Improvement: 65 01/19/25 2016 CC: ANKIT Medeiros; Dr. Micah Díaz, DO Signed Normal [facility] Laboratory - Chemistry and C hemistry - challengeOrdered By: Lynn Christensen on 01-14-2025 Bilirubin Ql (U) Negative [facility] Glucose Ql (U) Negative [facility] Ketones Ql (U) Negative [facility] pH (U) 5.5 [pH] [facility] Specific gravity (U) [Rel density] 1.015 [facility] Urobilinogen (U) [Mass/Vol] 0.0923975 mg/dL [facility] Laboratory - Hematology and Cell countsOrdered By: Lynn Christensen on 01-14-2025 Hemoglobin Ql (U) Moderate [facility] Laboratory - UrinalysisOrder ed By: Lynn Christensen on 01-14-2025 Nitrite Ql (U) Negative [facility] Protein Ql (U) Trace [facility] No Panel InformationOrdered By: Lynn Christensen on 01-14-2025 Urine Leukocytes Positive [facility] Urine Non-Hemolyzed Blood Negative [facility] Office Visit Reporton 2024 Office Visit Report [facility] [address] [place] [address] OFFICE VISIT Date of Service: 01/14/25 MR#: [id number] Acct: [id number] Patient: FABRICE MOON Rep #: [id number] : 1945 Provider: Dr. Lynn Tejada i, MD Age/Sex: 79/F Location: [facility] Status: Signed Intake Vital Signs 01/12/25 11:32 Height 5 ft 5 in Weight: 178 lb BMI 29.6 BP 126/80 H Pulse 74 Temp 98.1 F Intake Visit Reasons: urine drop Chief Complaint: PTNS Allergies amitriptyline (From Elavil) Adverse Reaction (Severe, Verified 07/20/24 11:38) Unknown tramadol Adverse Reaction (Severe, Verified 07/20/24 11:38) Unknown valdecoxib (From Bextra) Adverse Reaction (Severe, Verified 07/20/24 11:38) Unknown amlodipine Adverse Reaction (Intermediate, Verified 07/20/24 11:38) Foot and ankle edema Have you fallen in the past year?: Yes Nurse's Note: Patient was in for PTNS and states she wants a urine test to make sure she is not infected. Results POC UA Auto w/o Microscopy Office Urine Color Last Edit by Jo Rasheed on 01/14/25 15:47 Office Urine Clarity Last Edit by Jo Rasheed on 01/14/25 15:47 Office Urine Glucose Negative Last Edit by Jo Rasheed on 01/14/25 15:47 Office Urine Ketones Negative Last Edit by Jo Rasheed on 01/14/25 15:47 Office Urine Bilirubin Negative Last Edit by Jo Rasheed on 01/14/25 15:47 Office Urine Urobilinogen 0.2 mg/dL Last Edit by Jo Rasheed on 01/14/25 15:47 Off Ur Spec Cisco 1.015 Last Edit by Jo Rasheed on 01/14/25 15:47 Office Urine pH 5.5 Last Edit by Jo Rasheed on 01/14/25 15:47 Office Urine Protein Trace Last Edit by Jo Rasheed on 01/14/25 15:47 Office Urine Blood Moderate Last Edit by Jo Rasheed on 01/14/25 15:47 Office Urine Blood Hemolyzed Negative Last Edit by Jo Rasheed on 01/14/25 15:47 Office Urine Nitrate Negative Last Edit by Jo Rasheed on 01/14/25 15:47 Off Ur Leukocytes Positive Last Edit by Jo Rasheed on 01/14/25 15:47 leuks 500 Assessment and Plan Assessment and Plan Orders: Orders POC UA Auto w/o Microscopy 01/14/25 N39.41 - Urge incontinence Clinical Quality Measures Falls Risk Screening/Assistive Devices Have you fallen in the past year?: Yes 01/17/252233 Date Lynn Christensen MD Cosigner Signature: Date (if applicable) CC: Rogelio [facility] MR/BMSОльга 01-12-2025 MR/BMSBRENNA [facility] [address], [address] [place] [address] OFFICE VISIT Date of Service: 01/12/25 MR#: [id number] Acct: [id number] Name: FABRICE MOON Rep #: [id number] : 1945 Provider: Dr. Lynn Tejada i, MD Age/Sex: 79/F Location: [facility] Status: Signed Intake Vital Signs 12/29/24 11:52 01/05/25 14:01 01/12/25 11:32 Height 5 ft 5 in 5 ft 5 in 5 ft 5 in Weight: 178 lb BMI 29.6 BP 126/80 H Pulse 74 Temp 98.1 F Intake Visit Reasons: PTNS Chief Complaint: PTNS Ssis Architect Required: No Is patient in pain?: No Allergies amitriptyline (From Elavil) Adverse Reaction (Severe, Verified 07/20/24 11:38) Unknown tramadol Adverse Reaction (Severe, Verified 07/20/24 11:38) Unknown valdecoxib (From Bextra) Adverse Reaction (Severe, Verified 07/20/24 11:38) Unknown amlodipine Adverse Reaction (Intermediate, Verified 07/20/24 11:38) Foot and ankle edema Medications ???Medication ???Instructions ???Recorded ???Confirmed ???Type coenzyme Q10 100 mg tablet 100 mg PO QDAY #90 tabs 05/22/17 1 Rx levothyroxine 137 mcg tablet 112 mcg PO DAILY 01/07/23 01/12/25 History fesoterodine 4 mg tablet,extended 4 mg PO QDAY 02/04/24 01/12/25 Hi story release 24 hr (Toviaz) apixaban 5 mg tablet (Eliquis) 5 mg PO BID #180 tabs 05/04/2405/08 Rx cholecalciferol (vitamin D3) 50 4,000 unit PO QDAY 07/20/24 History mcg (2,000 unit) tablet hydrocodone-acetamin ophen 5-325mg 1 tab PO QHS PRN 07/20/24 5 History 5mg-325mg spironolactone 25 mg tablet 25 mg PO DAILY #90 TABLETS 5 01/12/25 Rx metoprolol tartrate 25 mg tablet 12.5 mg (1/2 x 25 mg) PO BID dose 12/22/24 01/12/25 Rx has been decreased. #90 tabs vibegron 75 mg tablet (Gemtesa) 75 mg PO QDAY 12/29/24 01/12/25 Hi story cefdinir 300 mg capsule 300 mg PO BID #14 caps 01/17/25 R x Have you fallen in the past year?: No PFSH Medical History PAF (paroxysmal atrial fibrillation) New onset atrial fibrillation Fibromyalgia Obesity Hypothyroidism Nonrheumatic aortic (valve) stenosis Bicuspid aortic valve Hyperlipidemia Obstructive sleep apnea Surgical History History of ankle surgery Hx of shoulder surgery History of foot surgery History of lumbar surgery History of bladder suspension procedure History of hysterectomy History of left heart catheterization (09/06/10) History of aortic valve replacement with bioprosthetic valve (10/23/10) Family History Father Lung cancer Mother Cancer kidney cancer Heart disease PPM Social History Smoking Status: Never smoker HPI HPI Urology Chief Complaint: PTNS Details: FABRICE MOON, is a 79 F. She is voiding about 10 time during the day and 1-2 times at night. The incontinence is improving. She is going through 1-4 pads a day. She is continuing to work on level one management with diet, fluid control and bladder training. She is not having any issues with her skin or ankle after treatments. She is happy with this treatment plan. ROS Const Constitutional: No chills, fatigue, fever(s), headache(s), night sweats, weakness, weight change, abnormal sleep pattern or change in appetite Eyes Eyes: No change in vision ENT ENT: No headache(s) or dry mouth Resp Respiratory: No cough, chest congestion, shortness of breath or wheezing Cardio Cardiology: Positive for other (No chest pain.); No shortness of breath, irregular heart rhythm or lightheadedness Gastro GI: Positive for other (No nausea.); No abdominal pain, change in bowel habits, constipation, diarrhea or vomiting Musc Musculoskeletal: No abnormal gait Skin Skin: No yellowing of the eye, lesions, itchy eyes, rash or skin ulcer Neuro Neurology: No abnormal gait, confusion, dizziness, weakness, headache(s) or memory loss Psych Psychiatric: No abnormal sleep pattern, No change in appetite, No confusion and No memory loss Endo Endocrine: No fatigue, increased thirst/drinking or weight change Aller/Imm Allergy/Immunologic: No itchy eyes or wheezing Evan/Lymp Hematologic/Lymphati c: No easy bleeding, easy bruising or enlarged lymph nodes Exam Const General: cooperative, healthy appearing, comfortable and no acute distress [facility] Head: normocephalic and atraumatic Ears: hearing grossly normal bilaterally and external ears normal Nose: external nose normal Eyes General: appearance normal, both eyes and all related structures Neck Neck: normal visual inspection and trachea midline Chest Chest palpation inspection: normal inspection of (more content not included)... Normal [facility] Venous duplex ultrasound rep ortOrdered By: Reginald Carey on 01-10-2025 US Vein [facility] [place] [address] Venous Duplex US, Unilateral 01/07/25 1256 MR#: [id number] Acct: [id number] Name: FABRICE MOON Rep #:[id number] : 1945 79 From: Reginald Haley Attending Dr: Dr. Micah Díaz, Status: REG CLI Ordering Dr: Micah Díaz DO Date: 0 01/07/25 Location: [facility] Sex: F C Admitted: Reason For Study Reason For Study: RLE Edema RIGHT GSV is normal. CFV is compressible, spontaneous, phasic, competent and demonstrates normal augmentation. FV is compressible, spontaneous, phasic, competent and demonstrates normal augmentation. POP V is compressible, spontaneous, phasic, competent and demonstrates normal augmentation. T/P Trunk is compressible. PTV is compressible. RT PerV is compressible. SFJ is competent and measures 0.52 cm. GSV proximal thigh measures 0.29 x 0.31 cm. GSV at knee measures 0.29 x 0.30 cm. GSV above knee is competent. GSV below knee is INCOMPETENT for greater than 0.5 seconds. SSV at junction is competent and measures 0.24 x 0.27 cm. SSV mid calf is competent and measures 0.32 x 0.39 cm. Nonvascularized anechoic area measuring approximately 4.79cm x 1.30cm noted in Rt Pop Fossa. Procedure This is a venous duplex using B-mode, color flow and spectral Doppler. Exam performed in department. The exam was diagnostic. VL/Venous Duplex US, Unilateral Interpretation Summary Deep veins of the right lower extremity are patent and compressible segmentally.There is no evidence of right lower extremity deep vein thrombosis. The right great saphenous vein appears patent and compressible segmentally. Positive for reflux in the right great saphenous vein below the knee. Nonvascularized anechoic area measuring approximately 4.79cm x 1.30cm noted in right popliteal fossa. Ordering Physician: Micah Díaz Referring Physician: Micah Díaz Performed By: Eusebio Richter, RVT 01/10/25733 Date _ Reginald Carey MD CC: Dr. Micah Díaz, DO ~ Date Dictated: 01/07/25 1256 Date Transcribed: 01/10/25733 Parts Cataloguer: Signed [facility] Work Phone: Venous Duplex US, Unilateral on 01-07-2025 Venous Duplex US, Unilateral [facility] [address] [place] [address] Venous Duplex US, Unilateral 01/07/251255 MR#: [id number] Acct: [id number] Name: FABRICE MOON Rep #: [id number] : 1945 79 From: Reginald Carey MD Attending Dr: Dr. Micah Díaz, Status: REG CLI Ordering Dr: Micah Díaz DO Date: 01/07/25 Location: [facility] Sex: F C Admitted: Reason For Study Reason For Study: RLE Edema RIGHT GSV is normal. CFV is compressible, spontaneous, phasic, competent and demonstrates normal augmentation. FV is compressible, spontaneous, phasic, competent and demonstrates normal augmentation. POP V is compressible, spontaneous, phasic, competent and demonstrates normal augmentation. T/P Trunk is compressible. PTV is compressible. RT PerV is compressible. SFJ is competent and measures 0.52 cm. GSV proximal thigh measures 0.29 x 0.31 cm. GSV at knee measures 0.29 x 0.30 cm. GSV above knee is competent. GSV below knee is INCOMPETENT for greater than 0.5 seconds. SSV at junction is competent and measures 0.24 x 0.27 cm. SSV mid calf is competent and measures 0.32 x 0.39 cm. Nonvascularized anechoic area measuring approximately 4.79cm x 1.30cm noted in Rt Pop Fossa. Procedure This is a venous duplex using B-mode, color flow and spectral Doppler. Exam performed in department. The exam was diagnostic. VL/Venous Duplex US, Unilateral Interpretation Summary Deep veins of the right lower extremity are patent and compressible segmentally. There is no evidence of right lower extremity deep vein thrombosis. The right great saphenous vein appears patent and compressible segmentally. Positive for reflux in the right great saphenous vein below the knee. Nonvascularized anechoic area measuring approximately 4.79cm x 1.30cm noted in right popliteal fossa. Ordering Physician: Micah Díaz Referring Physician: Micah Díaz Performed By: Eusebio Richter, RVT 01/10/25 0734 Date Reginald Carey MD CC: Dr. Micah Díaz, Date Dictated: 01/07/25 1256 Date Transcribed: 01/10/25 0734 Parts Cataloguer: Abdoul [facility] MR/HAYDEEAbDunia 01-05-2025 MR/FORREST [facility] [address] [place] [address], [address] [place] [address] OFFICE VISIT Date of Service: 01/05/25 MR#: [id number] Acct: [id number] Name: FABRICE MOON Rep #: [id number] : 1945 Provider: Dr. Lynn Tejada i, MD Age/Sex: 79/F [place] [facility] [place] Status: Signed Intake Vital Signs 12/29/24 11:52 01/05/25 14:01 Height 5 ft 5 in 5 ft 5 in Weight: 178 lb BMI 29.6 BP 128/84 H Pulse 60 Temp 97.9 F Intake Visit Reasons: PTNS Chief Complaint: PTNS Ssis Architect Required: No Is patient in pain?: No Allergies amitriptyline (From Elavil) Adverse Reaction (Severe, Verified 07/20/24 11:38) Unknown tramadol Adverse Reaction (Severe, Verified 07/20/24 11:38) Unknown valdecoxib (From Bextra) Adverse Reaction (Severe, Verified 07/20/24 11:38) Unknown amlodipine Adverse Reaction (Intermediate, Verified 07/20/24 11:38) Foot and ankle edema Medications ???Medication ???Instructions ???Recorded ???Confirmed ???Type coenzyme Q10 100 mg tablet 100 mg PO QDAY #90 tabs 05/22/17 1 Rx levothyroxine 137 mcg tablet 112 mcg PO DAILY 01/07/23 01/12/25 History fesoterodine 4 mg tablet,extended 4 mg PO QDAY 02/04/24 01/12/25 Hi story release 24 hr (Toviaz) apixaban 5 mg tablet (Eliquis) 5 mg PO BID #180 tabs 05/04/2405/08 Rx cholecalciferol (vitamin D3) 50 4,000 unit PO QDAY 07/20/24 History mcg (2,000 unit) tablet hydrocodone-acetamin ophen 5-325mg 1 tab PO QHS PRN 07/20/24 5 History 5mg-325mg spironolactone 25 mg tablet 25 mg PO DAILY #90 TABLETS 5 01/12/25 Rx metoprolol tartrate 25 mg tablet 12.5 mg (1/2 x 25 mg) PO BID dose 12/22/24 01/12/25 Rx has been decreased. #90 tabs vibegron 75 mg tablet (Gemtesa) 75 mg PO QDAY 12/29/24 01/12/25 Hi story cefdinir 300 mg capsule 300 mg PO BID #14 caps 01/17/25 R x Have you fallen in the past year?: No PFSH Medical History PAF (paroxysmal atrial fibrillation) New onset atrial fibrillation Fibromyalgia Obesity Hypothyroidism Nonrheumatic aortic (valve) stenosis Bicuspid aortic valve Hyperlipidemia Obstructive sleep apnea Surgical History History of ankle surgery Hx of shoulder surgery History of foot surgery History of lumbar surgery History of bladder suspension procedure History of hysterectomy History of left heart catheterization (09/06/10) History of aortic valve replacement with bioprosthetic valve (10/23/10) Family History Father Lung cancer Mother Cancer kidney cancer Heart disease PPM Social History Smoking Status: Never smoker HPI HPI Urology Chief Complaint: PTNS Details: FABRICE MOON, is a 79 F. She is voiding about 9-12 time during the day and 1-3 times at night. The incontinence is improving. She is going through 4 pads a day. She is continuing to work on level one management with diet, fluid control and bladder training. She is not having any issues with her skin or ankle after treatments. She is happy with this treatment plan. ROS Const Constitutional: No chills, fatigue, fever(s), headache(s), night sweats, weakness, weight change, abnormal sleep pattern or change in appetite Eyes Eyes: No change in vision ENT ENT: No headache(s) or dry mouth Resp Respiratory: No cough, chest congestion, shortness of breath or wheezing Cardio Cardiology: Positive for other (No chest pain.); No shortness of breath, irregular heart rhythm or lightheadedness Gastro GI: Positive for other (No nausea.); No abdominal pain, change in bowel habits, constipation, diarrhea or vomiting Musc Musculoskeletal: No abnormal gait Skin Skin: No yellowing of the eye, lesions, itchy eyes, rash or skin ulcer Neuro Neurology: No abnormal gait, confusion, dizziness, weakness, headache(s) or memory loss Psych Psychiatric: No abnormal sleep pattern, No change in appetite, No confusion and No memory loss Endo Endocrine: No fatigue, increased thirst/drinking or weight change Aller/Imm Allergy/Immunologic: No itchy eyes or wheezing Evan/Lymp Hematologic/Lymphati c: No easy bleeding, easy bruising or enlarged lymph nodes Exam Const General: cooperative, healthy appearing, comfortable and no acute distress [facility] Head: normocephalic and atraumatic Ears: hearing grossly normal bilaterally and external ears normal Nose: external nose normal Eyes General: appearance normal, both eyes and all related structures Neck Neck: normal visual inspection and trachea midline Chest Chest palpation inspection: normal inspection of the chest Resp Effort (more content not included)... Normal [facility] MR/BMSBRENNAlyly 12-29-2024 MR/BMSBRENNA [facility] [address] [facility], [address] [place] [address] OFFICE VISIT Date of Service: 12/29/24 MR#: [id number] Acct: [id number] Name: FABRICE MOON Rep #: [id number] : 1945 Provider: Dr. Lynn Tejada i, MD Age/Sex: 79/F [place] [facility] [place] Status: Signed Intake Vital Signs 12/07/24 15:31 12/22/24 11:30 12/29/24 11:52 Height 5 ft 5 in 5 ft 5 in 5 ft 5 in Weight: 178 lb 178 lb BMI 29.6 29.6 BP 126/78 H 124/78 H Pulse 64 76 Temp 97.9 F 97.9 F Intake Visit Reasons: ptns Chief Complaint: PTNS Ssis Architect Required: No Is patient in pain?: No Allergies amitriptyline (From Elavil) Adverse Reaction (Severe, Verified 07/20/24 11:38) Unknown tramadol Adverse Reaction (Severe, Verified 07/20/24 11:38) Unknown valdecoxib (From Bextra) Adverse Reaction (Severe, Verified 07/20/24 11:38) Unknown amlodipine Adverse Reaction (Intermediate, Verified 07/20/24 11:38) Foot and ankle edema Medications ???Medication ???Instructions ???Recorded ???Confirmed ???Type coenzyme Q10 100 mg tablet 100 mg PO QDAY #90 tabs 05/22/17 0 12/29/24 Rx levothyroxine 137 mcg tablet 112 mcg PO DAILY 01/07/23 12/29/24 History fesoterodine 4 mg tablet,extended 4 mg PO QDAY 02/04/24 12/29/24 Hi story release 24 hr (Toviaz) apixaban 5 mg tablet (Eliquis) 5 mg PO BID #180 tabs 05/04/24 Rx cholecalciferol (vitamin D3) 50 4,000 unit PO QDAY 07/20/24 History mcg (2,000 unit) tablet hydrocodone-acetamin ophen 5-325mg 1 tab PO QHS PRN 07/20/24 5 History 5mg-325mg spironolactone 25 mg tablet 25 mg PO DAILY #90 TABLETS 5 12/29/24 Rx nitrofurantoin 100 mg PO BID #14 caps 11/18/24 Rx monohydrate/macrocry stals 100 mg capsule (Macrobid) metoprolol tartrate 25 mg tablet 12.5 mg (1/2 x 25 mg) PO BID dose 12/22/24 12/29/24 Rx has been decreased. #90 tabs vibegron 75 mg tablet (Gemtesa) 75 mg PO QDAY 12/29/24 12/29/24 Hi story Have you fallen in the past year?: No PFSH Medical History PAF (paroxysmal atrial fibrillation) New onset atrial fibrillation Fibromyalgia Obesity Hypothyroidism Nonrheumatic aortic (valve) stenosis Bicuspid aortic valve Hyperlipidemia Obstructive sleep apnea Surgical History History of ankle surgery Hx of shoulder surgery History of foot surgery History of lumbar surgery History of bladder suspension procedure History of hysterectomy History of left heart catheterization (09/06/10) History of aortic valve replacement with bioprosthetic valve (10/23/10) Family History Father Lung cancer Mother Cancer kidney cancer Heart disease PPM Social History Smoking Status: Never smoker HPI HPI Urology Chief Complaint: PTNS Details: FABRICE MOON, is a 79 F. She is voiding about 9-12 time during the day and 1-2 times at night. The incontinence is improving. She is going through 3-4 pads a day. She is continuing to work on level one management with diet, fluid control and bladder training. She is not having any issues with her skin or ankle after treatments. She is happy with this treatment plan. ROS Const Constitutional: No chills, fatigue, fever(s), headache(s), night sweats, weakness, weight change, abnormal sleep pattern or change in appetite Eyes Eyes: No change in vision ENT ENT: No headache(s) or dry mouth Resp Respiratory: No cough, chest congestion, shortness of breath or wheezing Cardio Cardiology: Positive for other (No chest pain.); No shortness of breath, irregular heart rhythm or lightheadedness Gastro GI: Positive for other (No nausea.); No abdominal pain, change in bowel habits, constipation, diarrhea or vomiting Musc Musculoskeletal: No abnormal gait Skin Skin: No yellowing of the eye, lesions, itchy eyes, rash or skin ulcer Neuro Neurology: No abnormal gait, confusion, dizziness, weakness, headache(s) or memory loss Psych Psychiatric: No abnormal sleep pattern, No change in appetite, No confusion and No memory loss Endo Endocrine: No fatigue, increased thirst/drinking or weight change Aller/Imm Allergy/Immunologic: No itchy eyes or wheezing Evan/Lymp Hematologic/Lymphati c: No easy bleeding, easy bruising or enlarged lymph nodes Exam Const General: cooperative, healthy appearing, comfortable and no acute distress Other: walking with cane HENMT Head: normocephalic and atraumatic Ears: hearing grossly normal bilaterally and external ears normal Nose: external nose normal Eyes General: appearance normal, both eyes and all related structu (more content not included)... Normal [facility] MR/BMSBRENNA 12-22-2024 MR/BMSBRENNA [facility] [address] [facility], [address] [place] [address] OFFICE VISIT Date of Service: 12/22/24 MR#: [id number] Acct: [id number] Name: FABRICE MOON Rep #: [id number] : 1945 Provider: Dr. Lynn Tejada i, MD Age/Sex: 79/F [place] [facility] [place] Status: Signed Intake Vital Signs 12/07/24 15:31 12/15/24 11:28 12/22/24 11:30 Height 5 ft 5 in 5 ft 5 in 5 ft 5 in Weight: 178 lb 178 lb 178 lb BMI 29.6 29.6 29.6 BP 120/78 128/84 H 126/78 H Pulse 60 68 64 Temp 98 F 98 F 97.9 F Intake Visit Reasons: ptns Chief Complaint: PTNS Ssis Architect Required: No Is patient in pain?: No Allergies amitriptyline (From Elavil) Adverse Reaction (Severe, Verified 07/20/24 11:38) Unknown tramadol Adverse Reaction (Severe, Verified 07/20/24 11:38) Unknown valdecoxib (From Bextra) Adverse Reaction (Severe, Verified 07/20/24 11:38) Unknown amlodipine Adverse Reaction (Intermediate, Verified 07/20/24 11:38) Foot and ankle edema Medications ???Medication ???Instructions ???Recorded ???Confirmed ???Type coenzyme Q10 100 mg tablet 100 mg PO QDAY #90 tabs 05/22/17 0 12/22/24 Rx levothyroxine 137 mcg tablet 112 mcg PO DAILY 01/07/23 12/22/24 History fesoterodine 4 mg tablet,extended 4 mg PO QDAY 02/04/24 12/22/24 Hi story release 24 hr (Toviaz) apixaban 5 mg tablet (Eliquis) 5 mg PO BID #180 tabs 05/04/2402/05 Rx cholecalciferol (vitamin D3) 50 4,000 unit PO QDAY 07/20/24 History mcg (2,000 unit) tablet hydrocodone-acetamin ophen 5-325mg 1 tab PO QHS PRN 07/20/24 5 History 5mg-325mg spironolactone 25 mg tablet 25 mg PO DAILY #90 TABLETS 5 12/22/24 Rx nitrofurantoin 100 mg PO BID #14 caps 11/18/24 Rx monohydrate/macrocry stals 100 mg capsule (Macrobid) metoprolol tartrate 25 mg tablet 12.5 mg (1/2 x 25 mg) PO BID dose 12/22/24 Rx has been decreased. #90 tabs Have you fallen in the past year?: No PFSH Medical History PAF (paroxysmal atrial fibrillation) New onset atrial fibrillation Fibromyalgia Obesity Hypothyroidism Nonrheumatic aortic (valve) stenosis Bicuspid aortic valve Hyperlipidemia Obstructive sleep apnea Surgical History History of ankle surgery Hx of shoulder surgery History of foot surgery History of lumbar surgery History of bladder suspension procedure History of hysterectomy History of left heart catheterization (09/06/10) History of aortic valve replacement with bioprosthetic valve (10/23/10) Family History Father Lung cancer Mother Cancer kidney cancer Heart disease PPM Social History Smoking Status: Never smoker HPI HPI Urology Chief Complaint: PTNS Details: FABRICE MOON, is a 79 F. She is voiding about 8-10 time during the day and 1-2 times at night. The incontinence is improving. She is going through 4-6 pads a day. She is continuing to work on level one management with diet, fluid control and bladder training. She is not having any issues with her skin or ankle after treatments. She is happy with this treatment plan. ROS Const Constitutional: No chills, fatigue, fever(s), headache(s), night sweats, weakness, weight change, abnormal sleep pattern or change in appetite Eyes Eyes: No change in vision ENT ENT: No headache(s) or dry mouth Resp Respiratory: No cough, chest congestion, shortness of breath or wheezing Cardio Cardiology: Positive for other (No chest pain.); No shortness of breath, irregular heart rhythm or lightheadedness Gastro GI: Positive for other (No nausea.); No abdominal pain, change in bowel habits, constipation, diarrhea or vomiting Musc Musculoskeletal: No abnormal gait Skin Skin: No yellowing of the eye, lesions, itchy eyes, rash or skin ulcer Neuro Neurology: No abnormal gait, confusion, dizziness, weakness, headache(s) or memory loss Psych Psychiatric: No abnormal sleep pattern, No change in appetite, No confusion and No memory loss Endo Endocrine: No fatigue, increased thirst/drinking or weight change Aller/Imm Allergy/Immunologic: No itchy eyes or wheezing Evan/Lymp Hematologic/Lymphati c: No easy bleeding, easy bruising or enlarged lymph nodes Exam Const General: cooperative, healthy appearing, comfortable and no acute distress [facility] Head: normocephalic and atraumatic Ears: hearing grossly normal bilaterally and external ears normal Nose: external nose normal Eyes General: appearance normal, both eyes and all related structures Neck Neck: normal visual inspection and trachea midline Chest Chest palpation in (more content not included)... Normal [facility] MR/FORRESTlyly 12-15-2024 MR/BMSBRENNA [facility] [address] [facility], [address] [place] [address] OFFICE VISIT Date of Service: 12/15/24 MR#: [id number] Acct: [id number] Name: FABRICE MOON Rep #: [id number] : 1945 Provider: Dr. Lynn Tejada i, MD Age/Sex: 79/F [place] [facility] [place] Status: Signed Intake Vital Signs 12/07/24 15:31 12/15/24 11:28 Height 5 ft 5 in 5 ft 5 in Weight: 178 lb 178 lb BMI 29.6 29.6 BP 120/78 128/84 H Pulse 60 68 Temp 98 F 98 F Intake Visit Reasons: ptns Chief Complaint: PTNS Ssis Architect Required: No Is patient in pain?: No Allergies amitriptyline (From Elavil) Adverse Reaction (Severe, Verified 07/20/24 11:38) Unknown tramadol Adverse Reaction (Severe, Verified 07/20/24 11:38) Unknown valdecoxib (From Bextra) Adverse Reaction (Severe, Verified 07/20/24 11:38) Unknown amlodipine Adverse Reaction (Intermediate, Verified 07/20/24 11:38) Foot and ankle edema Medications ???Medication ???Instructions ???Recorded ???Confirmed ???Type coenzyme Q10 100 mg tablet 100 mg PO QDAY #90 tabs 05/22/17 0 12/15/24 Rx levothyroxine 137 mcg tablet 112 mcg PO DAILY 01/07/23 12/15/24 History metoprolol tartrate 25 mg tablet 12.5 mg (1/2 x 25 mg) PO BID dose 10/28/23 12/15/24 Rx has been decreased. #90 tabs fesoterodine 4 mg tablet,extended 4 mg PO QDAY 02/04/24 12/15/24 Hi story release 24 hr (Toviaz) apixaban 5 mg tablet (Eliquis) 5 mg PO BID #180 tabs 05/04/2407/06 Rx cholecalciferol (vitamin D3) 50 4,000 unit PO QDAY 07/20/24 History mcg (2,000 unit) tablet hydrocodone-acetamin ophen 5-325mg 1 tab PO QHS PRN 07/20/24 5 History 5mg-325mg spironolactone 25 mg tablet 25 mg PO DAILY #90 TABLETS 5 12/15/24 Rx nitrofurantoin 100 mg PO BID #14 caps 11/18/24 Rx monohydrate/macrocry stals 100 mg capsule (Macrobid) Have you fallen in the past year?: No PFSH Medical History PAF (paroxysmal atrial fibrillation) New onset atrial fibrillation Fibromyalgia Obesity Hypothyroidism Nonrheumatic aortic (valve) stenosis Bicuspid aortic valve Hyperlipidemia Obstructive sleep apnea Surgical History History of ankle surgery Hx of shoulder surgery History of foot surgery History of lumbar surgery History of bladder suspension procedure History of hysterectomy History of left heart catheterization (09/06/10) History of aortic valve replacement with bioprosthetic valve (10/23/10) Family History Father Lung cancer Mother Cancer kidney cancer Heart disease PPM Social History Smoking Status: Never smoker HPI HPI Urology Chief Complaint: PTNS Details: FABRICE MOON, is a 79 F. She is voiding about 7-10 time during the day and 1-2 times at night. The incontinence is improving. She is going through 4-6 pads a day. She is continuing to work on level one management with diet, fluid control and bladder training. She is not having any issues with her skin or ankle after treatments. ROS Const Constitutional: No chills, fatigue, fever(s), headache(s), night sweats, weakness, weight change, abnormal sleep pattern or change in appetite Eyes Eyes: No change in vision ENT ENT: No headache(s) or dry mouth Resp Respiratory: No cough, chest congestion, shortness of breath or wheezing Cardio Cardiology: Positive for other (No chest pain.); No shortness of breath, irregular heart rhythm or lightheadedness Gastro GI: Positive for other (No nausea.); No abdominal pain, change in bowel habits, constipation, diarrhea or vomiting Musc Musculoskeletal: No abnormal gait Skin Skin: No yellowing of the eye, lesions, itchy eyes, rash or skin ulcer Neuro Neurology: No abnormal gait, confusion, dizziness, weakness, headache(s) or memory loss Psych Psychiatric: No abnormal sleep pattern, No change in appetite, No confusion and No memory loss Endo Endocrine: No fatigue, increased thirst/drinking or weight change Aller/Imm Allergy/Immunologic: No itchy eyes or wheezing Evan/Lymp Hematologic/Lymphati c: No easy bleeding, easy bruising or enlarged lymph nodes Exam Const General: cooperative, healthy appearing, comfortable, no acute distress and other (walking with cane now) HENMT Head: normocephalic and atraumatic Ears: hearing grossly normal bilaterally and external ears normal Nose: external nose normal Eyes General: appearance normal, both eyes and all related structures Neck Neck: normal visual inspection and trachea midline Chest Chest palpation inspection: normal inspection of the chest Resp Effor (more content not included)... Normal [facility] MR/BMSОльга 12-07-2024 MR/BMSBRENNA [facility] [address] [facility], [address] [place] [address] OFFICE VISIT Date of Service: 12/07/24 MR#: [id number] Acct: [id number] Name: FABRICE MOON Rep #: [id number] : 1945 Provider: Dr. Lynn Tejaad i, MD Age/Sex: 79/F [place] [facility] [place] Status: Signed Intake Vital Signs 07/20/24 11:01 12/07/24 15:31 Height 5 ft 5 in 5 ft 5 in Weight: 178 lb BMI 29.6 BP 120/78 Pulse 60 Temp 98 F Intake Visit Reasons: PTNS Chief Complaint: PTNS Ssis Architect Required: No Is patient in pain?: No Allergies amitriptyline (From Elavil) Adverse Reaction (Severe, Verified 07/20/24 11:38) Unknown tramadol Adverse Reaction (Severe, Verified 07/20/24 11:38) Unknown valdecoxib (From Bextra) Adverse Reaction (Severe, Verified 07/20/24 11:38) Unknown amlodipine Adverse Reaction (Intermediate, Verified 07/20/24 11:38) Foot and ankle edema Have you fallen in the past year?: No PFSH Medical History PAF (paroxysmal atrial fibrillation) New onset atrial fibrillation Fibromyalgia Obesity Hypothyroidism Nonrheumatic aortic (valve) stenosis Bicuspid aortic valve Hyperlipidemia Obstructive sleep apnea Surgical History History of ankle surgery Hx of shoulder surgery History of foot surgery History of lumbar surgery History of bladder suspension procedure History of hysterectomy History of left heart catheterization (09/06/10) History of aortic valve replacement with bioprosthetic valve (10/23/10) Family History Father Lung cancer Mother Cancer kidney cancer Heart disease PPM Social History Smoking Status: Never smoker HPI HPI Urology Chief Complaint: PTNS Details: FABRICE MOON, is a 79 F. She is voiding about 8-10 time during the day and 4-6 times at night. The incontinence is not improving. She is going through 6 pads a day. She is continuing to work on level one management with diet, fluid control and bladder training. She is not having any issues with her skin or ankle after treatments. ROS Const Constitutional: No chills, fatigue, fever(s), headache(s), night sweats, weakness, weight change, abnormal sleep pattern or change in appetite Eyes Eyes: No change in vision ENT ENT: No headache(s) or dry mouth Resp Respiratory: No cough, chest congestion, shortness of breath or wheezing Cardio Cardiology: Positive for other (No chest pain.); No shortness of breath, irregular heart rhythm or lightheadedness Gastro GI: Positive for other (No nausea.); No abdominal pain, change in bowel habits, constipation, diarrhea or vomiting Musc Musculoskeletal: No abnormal gait Skin Skin: No yellowing of the eye, lesions, itchy eyes, rash or skin ulcer Neuro Neurology: No abnormal gait, confusion, dizziness, weakness, headache(s) or memory loss Psych Psychiatric: No abnormal sleep pattern, No change in appetite, No confusion and No memory loss Endo Endocrine: No fatigue, increased thirst/drinking or weight change Aller/Imm Allergy/Immunologic: No itchy eyes or wheezing Evan/Lymp Hematologic/Lymphati c: No easy bleeding, easy bruising or enlarged lymph nodes Exam Const General: cooperative, healthy appearing, comfortable and no acute distress HENMT Head: normocephalic and atraumatic Ears: hearing grossly normal bilaterally and external ears normal Nose: external nose normal Eyes General: appearance normal, both eyes and all related structures Neck Neck: normal visual inspection and trachea midline Chest Chest palpation inspection: normal inspection of the chest Resp Effort Inspection: normal respiratory effort, able to speak in complete sentences and symmetric chest movement Cardio Rate: regular rate GI Inspection: normal to inspection Palpation: soft and nontender General: No CVA tenderness Skin General: no rashes or lesions noted Neuro General: patient alert, patient awake, patient oriented x3 and CN's II-XI intact bilaterally Extrem General: normal to inspection Psych Appearance: grossly normal and well kempt Mental Status: mental status grossly normal Office Procedures PTNS Procedure Completed: Yes PTNS: Percutaneous tibial nerve stimulation (PTNS) was prescribed for overactive bladder symptoms of urinary urgency, frequency and urge incontinence.???The needle electrode was inserted into the lower, inner aspect of the???left leg.???The surface electrode was placed on the inside arch of the foot on the treatment leg.???The lead set was connected to the stimulator, and the needle electrode clip was connected to the needle electrode.???The (more content not included)... Normal [facility] Laboratory - Chemistry and C hemistry - challengeOrdered By: Lynn Christensen on 11-17-2024 Bilirubin Ql (U) Negative [facility] Glucose Ql (U) Negative [facility] Ketones Ql (U) Negative [facility] pH (U) 6.5 [pH] [facility] Specific gravity (U) [Rel density] 1.005 [facility] Urobilinogen (U) [Mass/Vol] Negative [facility] - Hematology and Cell countsOrdered By: Lynn Christensen on 11-17-2024 Hemoglobin Ql (U) Small [facility] - UrinalysisOrder ed By: Lynn Christensen on 11-17-2024 Nitrite Ql (U) Negative [facility] Protein Ql (U) Negative [facility] No Panel InformationOrdered By: Lynn Christensen on 11-17-2024 Urine Leukocytes Positive [facility] Urine Non-Hemolyzed Blood Negative [facility] Magnetic resonance imaging r eportOrdered By: Jose Gardiner on 09-17-2024 Study report [facility] Imaging Services [address] [place] [address] Lower Ext Joint Only (Routine) MR#: [id number] Acct: [id number] Name: FABRICE MOON Rep #: [id number] : 1945 F 79 From: Neville Gardiner DO PCP: Dr. Micah Díaz, Status: REG CLI Study:Lower Ext Joint Only (Routine) Date of Exam: 09/15/24 Exam# [id number] Ordering Dr: Christiano Medeiros DPBrigitte PROCEDURE: LOWER EXT JOINT ONLY (ROUTINE) 09/15/2024 REASON FOR EXAM: RT PTT,OSTEOARTHRITIS TECHNIQUE: MRI of the right lower Extremity. Multiplanar and multisequence images were obtained without IV contrast administration. COMPARISON: COMPARISON : None FINDINGS: Achilles tendon is intact. Minimal tibialis posterior and flexor digitorum longus tenosynovitis. Flexor tendons are otherwise intact. Anterior extensor tendons are intact. Peroneal tendons are intact. Anterior and posterior syndesmotic ligaments are intact. Anterior talofibular, calcaneofibular and posterior talofibular ligaments are intact. Deltoid ligament complex is intact. Mild thickening of the middle cord of the plantar fascia likely related to chronic fasciitis. Small plantar calcaneal spur. Loss of the normal fat signal within the sinus tarsi likely related to a combination of a ganglion and scarring. 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 No sizeable joint effusion or malalignment. Negative for fracture or marrow replacement. A couple small ganglia along the dorsal aspect of the midfoot. Soft tissues areotherwise intact. MRI/Lower Ext Joint Only (Routine) IMPRESSION: 1. 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 Please correlate. 2. Minimal tibialis posterior tenosynovitis. 3. Mild/moderate degenerative changes throughout the midfoot and hindfoot. 4. Mild chronic plantar fasciitis. Reading Location: [facility] CC: ANKIT Medeiros; Dr. Micah Díaz DO ~ Parts Cataloguer: Signed [facility] Lower Ext Joint Only (Routin e)on 09-15-2024 Lower Ext Joint Only (Routine) [facility] Imaging Services [address] [place] [id number] Lower Ext Joint Only (Routine) MR#: [id number] Acct: [id number] Name: FABRICE MOON Rep #: [id number] : 1945 F 79 From: Jose Cook PCP: Dr. Micah Díaz DO Status: REG CLI Study: Lower Ext Joint Only (Routine) Date of Exam: 0 09/15/24 Exam# [id number] Ordering Dr: Christiano Medeiros DPM PROCEDURE: LOWER EXT JOINT ONLY (ROUTINE) 09/15/2024 REASON FOR EXAM: RT PTT,OSTEOARTHRITIS TECHNIQUE: MRI of the right lower Extremity. Multiplanar and multisequence images were obtained without IV contrast administration. COMPARISON: COMPARISON : None FINDINGS: Achilles tendon is intact. Minimal tibialis posterior and flexor digitorum longus tenosynovitis. Flexor tendons are otherwise intact. Anterior extensor tendons are intact. Peroneal tendons are intact. Anterior and posterior syndesmotic ligaments are intact. Anterior talofibular, calcaneofibular and posterior talofibular ligaments are intact. Deltoid ligament complex is intact. Mild thickening of the middle cord of the plantar fascia likely related to chronic fasciitis. Small plantar calcaneal spur. Loss of the normal fat signal within the sinus tarsi likely related to a combination of a ganglion and scarring. Mild tibiotalar and moderate scattered midfoot osteoarthritis including chondral thinning and marginal osteophytes. No sizeable joint effusion or malalignment. Negative for fracture or marrow replacement. A couple small ganglia along the dorsal aspect of the midfoot. Soft tissues are otherwise intact. MRI/Lower Ext Joint Only (Routine) IMPRESSION: 1. 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 Please correlate. 2. Minimal tibialis posterior tenosynovitis. 3. Mild/moderate degenerative changes throughout the midfoot and hindfoot. 4. Mild chronic plantar fasciitis. Reading Location: [facility] CC: ANKIT Medeiros; Dr. Micah Díaz DO Parts Cataloguer: Signed Normal [facility] Anion gap in Serum or Plasma Ordered By: Matti Camarillo on 08-31-2024 Anion gap [Moles/Vol] 11 mmol/L 5- [facility] BUN/creatinine ratioOrdered By: Matti Camarillo on 08-31-2024 Urea nitrogen/Creatinine [Mass ratio] 19.6 mg/mg 01-31 [facility] Bilirubin, totalOrdered By: Matti Camarillo on 08-31-2024 Bilirubin [Mass/Vol] 0.55 mg/dL 0.00-1.30 [facility] Calculated very low density lipoprotein (VLDL) cholesterol measurementOrdered By: Matti Camarillo on 08-31-2024 Calculated very low density lipoprotein (VLDL) cholesterol measurement 40 mg/dL -40 [facility] Carbon dioxide, total [Moles /volume] in Central venous bloodOrdered By: Matti Camarillo on 08-31-2024 CO2 [Moles/Vol] 24.4 mmol/L 21.0-32.0 [facility] Chloride assayOrdered By: Randy Camarillo on 08-31-2024 Chloride [Moles/Vol] 105 mmol/L 98-108 [facility] Comprehensive Metabolic Prof ilon 08-31-2024 Albumin [Mass/Vol] 4.4 g/dL Normal 3.4-4.8 [facility] Comment on above: Performed By: #### L 500.4050, L506.1001, L501.9520, L500.4100 ####[facility] [address] [place], [address] Albumin/Globulin [Mass ratio] 1.3 {ratio} Normal 0.9-2.4 [facility] Comment on above: Performed By: #### L 500.4050, L506.1001, L501.9520, L500.4100 ####[facility] [address] [place], [address] ALK PHOS 69 U/L Normal 35-104 [facility] Comment on above: Performed By: #### L 500.4050, L506.1001, L501.9520, L500.4100 ####[facility] [address] [place], [address] ALT [Catalytic activity/Vol] 21 U/L Normal <=34 [facility] Comment on above: Performed By: #### L 500.4050, L506.1001, L501.9520, L500.4100 ####[facility] [address] [place], [address] AST [Catalytic activity/Vol] 28 U/L Normal <=31 [facility] Comment on above: Performed By: #### L 500.4050, L506.1001, L501.9520, L500.4100 ####[facility] [address] [place], [address] Bilirubin [Mass/Vol] 0.55 mg/dL Normal 0.00-1.30 [facility] Comment on above: Performed By: #### L 500.4050, L506.1001, L501.9520, L500.4100 ####[facility] [address] [place], [address] BUN/CRE 19.6 RATIO Normal 10-20 [facility] Comment on above: Performed By: #### L 500.4050, L506.1001, L501.9520, L500.4100 ####[facility] [address] [place], [address] Calcium [Mass/Vol] 9.9 mg/dL Normal 7.6-11.0 [facility] Comment on above: Performed By: #### L 500.4050, L506.1001, L501.9520, L500.4100 ####[facility] [address] [place], [address] Chloride [Moles/Vol] 105 mmol/L Normal 98-108 [facility] Comment on above: Performed By: #### L 500.4050, L506.1001, L501.9520, L500.4100 ####[facility] [address] [place], [address] CO2 [Moles/Vol] 24.4 mmol/L Normal 21.0-32.0 [facility] Comment on above: Performed By: #### L 500.4050, L506.1001, L501.9520, L500.4100 ####[facility] [address] [place], [address] Creatinine [Mass/Vol] 0.67 mg/dL Low 0.70-1.20 [facility] Comment on above: Performed By: #### L 500.4050, L506.1001, L501.9520, L500.4100 ####[facility] [address] [place], [address] GAP 11 Normal 5-15 [facility] Comment on above: Performed By: #### L 500.4050, L506.1001, L501.9520, L500.4100 ####[facility] [address] [place], [address] GFR/1.73 sq M.predicted among non-blacks MDRD (S/P/Bld) [Vol rate/Area] 88 mL/min/{1.73_m2} Normal >60 [facility] Comment on above: Result Comment: mL/m in/1.73m2 CKD-EPI Creatinine Equation (2020) Performed By: #### L 500.4050, L506.1001, L501.9520, L500.4100 ####[facility] [address] [place], [address] Globulin (S) [Mass/Vol] 3.3 g/dL Normal 2.2-4.2 [facility] Comment on above: Performed By: #### L 500.4050, L506.1001, L501.9520, L500.4100 ####[facility] [address] [place], [address] Glucose [Mass/Vol] 99 mg/dL Normal 70-99 [facility] Comment on above: Performed By: #### L 500.4050, L506.1001, L501.9520, L500.4100 ####[facility] [address] [place], [address] Potassium [Moles/Vol] 4.4 mmol/L Normal 3.3-5.1 [facility] Comment on above: Performed By: #### L 500.4050, L506.1001, L501.9520, L500.4100 ####[facility] [address] [place], [address] Sodium [Moles/Vol] 141 mmol/L Normal 133-145 [facility] Comment on above: Performed By: #### L 500.4050, L506.1001, L501.9520, L500.4100 ####[facility] [address] [place], [address] T PROT 7.6 g/dL Normal 5.9-8.4 [facility] Comment on above: Performed By: #### L 500.4050, L506.1001, L501.9520, L500.4100 ####[facility] [address] [place], [address] Urea nitrogen [Mass/Vol] 13 mg/dL Normal 4-19 [facility] Comment on above: Performed By: #### L 500.4050, L506.1001, L501.9520, L500.4100 ####[facility] [address] [place], [address] Glomerular filtration rate ( GFR) estimation/1.73 sq m using serum, plasma, or whole bOrdered By: Matti Camarillo on 08-31-2024 GFR/1.73 sq M.predicted among non-blacks MDRD (S/P/Bld) [Vol rate/Area] 88 mL/min/{1.73_m2} >60 [facility] Comment on above: mL/min/1.73m2 CKD-EP I Creatinine Equation (2020) LDL calc ser/plasOrdered By: Matti Camarillo on 08-31-2024 Cholesterol in LDL [Mass/Vol] 129 mg/dL [facility] Comment on above: Cuyhannlwl=730-287 m g/dL & Higher Ibfq=350 mg/dL or greater Laboratory - Chemistry and C hemistry - challengeOrdered By: Matti Camarillo on 08-31-2024 AST [Catalytic activity/Vol] 28 U/L <32 [facility] Lipid Profileon 08-31-2024 CHOL:HDL 4.24 Normal [facility] Comment on above: Performed By: #### L 500.4050, L506.1001, L501.9520, L500.4100 ####[facility] [address] [place], [address] Cholesterol [Mass/Vol] 222 mg/dL High <=200 [facility] Comment on above: Result Comment: Chol esterol level, Desirable <200 mg/dL Borderline high cholesterol 200-239 mg/dL High cholesterol >=240 mg/dL Recommendations of the NCEP Adult Treatment Panel for the following risk-cutoff thresholds for the [place] population. Performed By: #### L 500.4050, L506.1001, L501.9520, L500.4100 ####[facility] [address] [place], [address] Cholesterol in HDL [Mass/Vol] 52 mg/dL Normal [facility] Comment on above: Result Comment: Mona onal Cholesterol Education Program (NCEP) guidelines: <40 mg/dL: Low HDL-cholesterol (major risk factor for CHD) >= 60 mg/dL: High HDL-cholesterol (negative risk factor for CHD) HDL-cholesterol is affected by a number of factors, e.g. smoking, exercise, hormones, sex and age. Performed By: #### L 500.4050, L506.1001, L501.9520, L500.4100 ####[facility] [address] [place], [address] Cholesterol in LDL [Mass/Vol] 129 mg/dL Normal [facility] Comment on above: Result Comment: Bord ugrgfh=363-467 mg/dL Higher Hovz=102 mg/dL or greater Performed By: #### L 500.4050, L506.1001, L501.9520, L500.4100 ####[facility] [address] [place], [address] Cholesterol in VLDL [Mass/Vol] 40 mg/dL Normal 5-40 [facility] Comment on above: Performed By: #### L 500.4050, L506.1001, L501.9520, L500.4100 ####[facility] [address] [place], [address] Triglyceride [Mass/Vol] 202 mg/dL High [facility] Comment on above: Result Comment: The drugs N-Acetylcysteine and Metamizole may falsely depress this assay. Normal range: <150 mg/dL Borderline High: 150-199 mg/dL High: 200-499 mg/dL Very High: >500 mg/dL Performed By: #### L 500.4050, L506.1001, L501.9520, L500.4100 ####[facility] [address] [place], [address] Potassium measurement (mass/ volume)Ordered By: Matti Camarillo on 08-31-2024 Potassium (Unsp spec) [Mass/Vol] 4.4 mmol/L 3.3-5.1 [facility] Screening total cholesterol/ high density lipoprotein (HDL) cholesterol ratioOrdered By: Matti Camarillo on 08-31-2024 Cholesterol.total/Choles terol in HDL [Mass ratio] 4.24 {ratio} [facility] Serum creatinine measurement (mass/volume)Ordered By: Matti Camarillo on 08-31-2024 Creatinine [Mass/Vol] 0.67 mg/dL Low 0.70-1.20 [facility] Serum globulin measurementOr dered By: Matti Camarillo on 08-31-2024 Globulin (S) [Mass/Vol] 3.3 g/dL 2.2-4.2 [facility] Serum glucose measurement (m ass/volume)Ordered By: Matti Camarillo on 08-31-2024 Glucose [Mass/Vol] 99 mg/dL 70-99 [facility] Serum or plasma alanine oliveira otransferase (ALT) measurementOrdered By: Matti Camarillo on 08-31-2024 ALT [Catalytic activity/Vol] 21 U/L <35 [facility] Serum or plasma albumin deo urement (mass/volume)Ordered By: Matti Camarillo on 08-31-2024 Albumin [Mass/Vol] 4.4 g/dL 3.4-4.8 [facility] Serum or plasma albumin/glob ulin mass ratioOrdered By: Matti Camarillo on 08-31-2024 Albumin/Globulin [Mass ratio] 1.3 {ratio} 0.9-2.4 [facility] Serum or plasma alkaline liberty sphatase measurementOrdered By: Matti Camarillo on 08-31-2024 ALP [Catalytic activity/Vol] 69 U/L 35-104 [facility] Serum or plasma calcium deo urement (mass/volume)Ordered By: Matti Camarillo on 08-31-2024 Calcium [Mass/Vol] 9.9 mg/dL 7.6-11.0 [facility] Serum or plasma cholesterol in HDL measurement (mass/volume)Ordered By: Matti Camarillo on 08-31-2024 Cholesterol in HDL [Mass/Vol] 52 mg/dL >40 [facility] Comment on above: National Cholesterol Education Program (NCEP) guidelines:<40 mg/dL: Low HDL-cholesterol (major risk factor for CHD)>= 60 mg/dL: High HDL-cholesterol (negative risk factor for CHD)HDL-cholesterol is affected by a number of factors, e.g. smoking, exercise, hormones, sex and age. Serum or plasma cholesterol measurement (mass/volume)Ordered By: Matti Camarillo on 08-31-2024 Cholesterol [Mass/Vol] 222 mg/dL High <201 [facility] Comment on above: Cholesterol level, D esirable <200 mg/dLBorderline high cholesterol 200-239 mg/dLHigh cholesterol >=240 mg/dLRecommendations of the NCEP Adult Treatment Panel for the following risk-cutoff thresholds for the [place] population. Serum or plasma urea nitroge n measurement (mass/volume)Ordered By: Matti Camarillo on 08-31-2024 Urea nitrogen [Mass/Vol] 13 mg/dL 4-19 [facility] Sodium levelOrdered By: Kiran Camarillo on 08-31-2024 Sodium [Moles/Vol] 141 mmol/L 133-145 [facility] TSH DL <= 0.005 mIU/L QnOrde red By: Matti Camarillo on 08-31-2024 TSH Qn 1.540 uIU/mL 0.300-4.200 [facility] Thyroid Stim Hormone (TSH)on 08-31-2024 TSH 1.540 uIU/mL Normal 0.300-4.200 [facility] Comment on above: Performed By: #### L 500.4050, L506.1001, L501.9520, L500.4100 ####[facility] [address] [place], [address] Total proteinOrdered By: Jacinto Camarillo on 08-31-2024 Protein [Mass/Vol] 7.6 g/dL 5.9-8.4 [facility] Triglycerides measurementOrd ered By: Matti Camarillo on 08-31-2024 Triglyceride [Mass/Vol] 202 mg/dL High <199 [facility] Comment on above: The drugs N-Acetylcy steine and Metamizole may falsely depress this assay. Normal range: <150 mg/dLBorderline High: 150-199 mg/dLHigh: 200-499 mg/dLVery High: >500 mg/dL Vitamin D,25 Hydroxyon 08-31 Vitamin D 25-OH 53.3 ng/mL Normal 30-100 [facility] Comment on above: Result Comment: Gill min D Status Deficiency: <20 ng/mL (50nmol/L) Insufficiency: 20-30 ng/mL (50-75 nmol/L) Sufficiency: 30-100 ng/mL (75-250 nmol/L) Toxicity: >100 ng/mL (>250 nmol/L) Performed By: #### L 500.4050, L506.1001, L501.9520, L500.4100 ####[facility] [address] [place], [address] Echo Completeon 07-22-2024 Echo [facility] Cardiovascular Services [address] [place] [address] Echo Complete 07/22/24 1017 MR#: [id number] Acct: [id number] Name: FABRICE MOON Rep #: [id number] : 1945 79 From: Angel Fairchild MD Attending Dr: HERVE BostonC Status: LYNN ARAUZ Ordering Dr: Milka Mckenna NP [facility] [facility]-C Date: 07/22/24 Location: [facility] Sex: F C Admitted: Reason For Study Reason For Study: VALVE REPLACEMENT Procedure This was a 2D Doppler, Color Flow transthoracic echocardiogram. Exam performed in department. Left Ventricle Normal LV size. Moderate concentric left ventricular hypertrophy. Left ventricular systolic function is normal. The left ventricular ejection fraction is 65 %. No regional wall motion abnormalities noted. Right Ventricle Normal RV size. Normal systolic function. Atria Normal left atrium. Normal right atrium. Mitral Valve Normal mitral valve. Tricuspid Valve Normal tricuspid valve. Aortic Valve Peak aortic valve gradient 31 mmHg. Mean aortic valve gradient 18 mmHg. Bioprosthetic aortic valve. Pulmonic Valve Normal pulmonic valve. Great Vessels Normal aortic root. The pulmonary artery is normal size. Inferior vena cava collapse with respiration. Pericardium/Pleural No pericardial effusion. MMode/2D Measurements Calculations LVIDd: 4.2 cm IVSd: 1.5 cm Ao root diam: 4.0 cm LVIDs: 3.5 cm LVPWd: 1.7 cm RVDd: 2.7 cm FS: 16.6 % LAV(MOD-bp): 63.0 ml LVAd ap4: 32.3 cm2 SV(MOD-sp4): 64.1 ml LAV(MOD-bp) Indexed: 31.6 ml/m2 LVLd ap4: 8.6 cm SI(MOD-sp4): 32.1 ml/m2 LAV(MOD-sp2): 51.7 ml EDV(MOD-sp4): 100.2 ml LAV(MOD-sp4): 67.6 ml EDV(sp4-el): 102.3 ml LVAs ap4: 16.0 cm2 LVLs ap4: 6.8 cm ESV(MOD-sp4): 36.2 ml ESV(sp4-el): 31.8 ml EF(MOD-sp4): 63.9 % EF(sp4-el): 68.9 % SV(sp4-el): 70.5 ml LA A4 area: 23.1 cm2 RA A4 area: 13.9 cm2 Time Measurements MV dec time: 0.29 sec Doppler Measurements Calculations MV E max jaleesa: 109.6 cm/sec Lat Peak E' Jaleesa: 9.3 cm/sec Med Peak E' Jaleesa: 6.3 cm/sec MV A max jaleesa: 106.4 cm/sec E/E' lat: 11.8 E/E' med: 17.3 MV E/A: 1.0 MV V2 max: 119.8 cm/sec Ao V2 max: 281.0 cm/sec MV max P.7 mmHg MV dec slope: 382.6 cm/sec2 Ao max P.6 mmHg MV V2 mean: 56.9 cm/sec Ao V2 mean: 200.3 cm/sec MV mean P.7 mmHg Ao mean P.0 mmHg MV V2 VTI: 51.1 cm Ao V2 VTI: 76.3 cm AV (velocity ratio): 0.64 LV V1 max: 175.4 cm/sec PA V2 max: 112.5 cm/sec LV V1 max P.3 mmHg PA V2 mean: 72.5 cm/sec LV V1 mean P.7 mmHg LV V1 mean: 129.5 cm/sec LV V1 VTI: 49.1 cm ECHO/Echo Complete Interpretation Summary Normal LV size. Left ventricular systolic function is normal. Bioprosthetic aortic valve. Moderate concentric left ventricular hypertrophy. The left ventricular ejection fraction is 65 %. Mean aortic valve gradient 18 mmHg. Compared to the previous the above is unchanged. Ordering Physician: Milka Mckenna Referring Physician: Milka Mckenna Performed By: Janell Marie RCS 07/22/24 1538 Date Angel Fairchild MD CC: FLORESITA-C Milka Mckenna; Dr. Micah Díaz DO Date Dictated: 07/22/24 1017 Date Transcribed: 07/22/241537 Parts Cataloguer: Signed Normal [facility] Echocardiogram study reportO rdered By: Angel Fairchild on 07-22-2024 Study report [facility] Cardiovascular Services [address] [place] [address] Echo Complete 07/22/24 1017 MR#: [id number] Acct: [id number] Name: FABRICE MOON Rep #:[id number] : 1945 79 From: Angel Haley Attending Dr: Milka Mckenna, [facility]IST-C Dany tatus: REG CLI Ordering Dr: Milka Mckenna NP [employer]-C Anam e: 07/22/24 Location: [facility] Sex: F C Admitted: Reason For Study Reason For Study: VALVE REPLACEMENT Procedure This was a 2D Doppler, Color Flow transthoracic echocardiogram. Exam performed in department. Left Ventricle Normal LV size. Moderate concentric left ventricular hypertrophy. Left ventricular systolic function is normal. The left ventricular ejection fraction is 65 %. No regional wall motion abnormalities noted. Right Ventricle Normal RV size. Normal systolic function. Atria Normal left atrium. Normal right atrium. Mitral Valve Normal mitral valve. Tricuspid Valve Normal tricuspid valve. Aortic Valve Peak aortic valve gradient 31 mmHg. Mean aortic valve gradient 18 mmHg. Bioprosthetic aortic valve. Pulmonic Valve Normal pulmonic valve. Great Vessels Normal aortic root. The pulmonary artery is normal size. Inferior vena cava collapse with respiration. Pericardium/Pleural No pericardial effusion. MMode/2D Measurements & Calculations LVIDd: 4.2 cm IVSd: 1.5 cm Ao root diam: 4.0 cm LVIDs: 3.5 cm LVPWd: 1.7 cm RVDd: 2.7 cm FS: 16.6 % LAV(MOD-bp): 63.0 ml LVAd ap4: 32.3 cm2 SV(MOD-sp4): 64.1 ml LAV(MOD-bp) Indexed: 31.6 ml/m2 LVLd ap4: 8.6 cm SI(MOD-sp4): 32.1 ml/m2 LAV(MOD-sp2): 51.7 ml EDV(MOD-sp4): 100.2 ml LAV(MOD-sp4): 67.6 ml EDV(sp4-el): 102.3 ml LVAs ap4: 16.0 cm2 LVLs ap4: 6.8 cm ESV(MOD-sp4): 36.2 ml ESV(sp4-el): 31.8 ml EF(MOD-sp4): 63.9 % EF(sp4-el): 68.9 % SV(sp4-el): 70.5 ml LA A4 area: 23.1 cm2 RA A4 area: 13.9 cm2 Time Measurements MV dec time: 0.29 sec Doppler Measurements & Calculations MV E max jaleesa: 109.6 cm/sec Lat Peak E' Jaleesa: 9.3 cm/sec Med Peak E' Jaleesa: 6.3 cm/sec MV A max jaleesa: 106.4 cm/sec E/E' lat: 11.8 E/E' med: 17.3 MV E/A: 1.0 MV V2 max: 119.8 cm/sec Ao V2 max: 281.0 cm/sec MV max P.7 mmHg MV dec slope: 382.6 cm/sec2 Ao max P.6 mmHg MV V2 mean: 56.9 cm/sec Ao V2 mean: 200.3 cm/sec MV mean P.7 mmHg Ao mean P.0 mmHg MV V2 VTI: 51.1 cm Ao V2 VTI: 76.3 cm AV (velocity ratio): 0.64 LV V1 max: 175.4 cm/sec PA V2 max: 112.5 cm/sec LV V1 max P.3 mmHg PA V2 mean: 72.5 cm/sec LV V1 mean P.7 mmHg LV V1 mean: 129.5 cm/sec LV V1 VTI: 49.1 cm ECHO/Echo Complete Interpretation Summary Normal LV size. Left ventricular systolic function is normal. Bioprosthetic aortic valve. Moderate concentric left ventricular hypertrophy. The left ventricular ejection fraction is 65 %. Mean aortic valve gradient 18 mmHg. Compared to the previous the above is unchanged. Ordering Physician: Milka Mckenna Referring Physician: Milka Mckenna Performed By: Janell Marie RCS 07/22/24 1538 Date _ Angel Fairchild MD CC: ZAYDA Mckenna; Dr. Micah Díaz, Date Dictated: 07/22/24 1017 Date Transcribed: 07/22/241537 Parts Cataloguer: Signed [facility] Work Phone: Cardiology Visit Reporton Cardiology Visit Report [facility] [address] [place] [address] OFFICE VISIT Date of Service: 07/20/24 MR#: [id number] Acct: [id number] Name: FABRICE MOON Rep #: [id number] : 1945 Provider: ZAYDA ford Age/Sex: 79/F Location: [facility] Status: Signed HPI HPI History of Present Illness Details: FABRICE MOON, is an 79 F who presents to the office today for a follow-up visit. She has a history of aortic valve disease status post aortic valve replacement in 2010 with a bioprosthetic valve. She also has a history of hypertension and hyperlipidemia. She was recently diagnosed with iron deficient anemia. In 2022, she was noted to be in atrial fibrillation. She was started on Eliquis. She was also enrolled in the change A-fib trial and was started on Multaq on 400 mg twice a day. She did undergo a cardioversion in October however this was unsuccessful. She had a repeat cardioversion in 12/2022 which was successful. She does wear her CPAP nightly. From a cardiac standpoint, the patient is doing well. She does acknowledge one episode of chest discomfort for 1 day. This was located left chest, and occurred about 2 weeks ago. She states that this has not occurred since. She denies any palpitations, pressure or heaviness. She denies SOB, Orthopnea, and PND. She does not have bleeding issues; no blood in urine, stool, or nosebleeds. She denies any decrease in energy level, myalgias, or claudication. She does acknowledge occasional bilateral lower extremity edema. She does not have sudden weight gain. She denies lightheadedness, dizziness, syncopal or near syncopal episodes, and headaches. Intake Vital Signs 10/28/23 11:16 07/20/24 11:01 Height 5 ft 5 in 5 ft 5 in Weight: 194 lb BMI 32.3 BP 162/83 H Blood Pressure Location Lt brachial Position Sitting Respiration 18 Pulse 57 L Pulse Source Monitor Pulse Oximetry (%) 97 Intake Visit Reasons: 9 M Ssis Architect Required: No Is patient in pain?: No Allergies amitriptyline (From Elavil) Adverse Reaction (Severe, Verified 07/20/24 11:38) Unknown tramadol Adverse Reaction (Severe, Verified 07/20/24 11:38) Unknown valdecoxib (From Bextra) Adverse Reaction (Severe, Verified 07/20/24 11:38) Unknown amlodipine Adverse Reaction (Intermediate, Verified 07/20/24 11:38) Foot and ankle edema Medications ???Medication ???Instructions ???Recorded ???Confirmed ???Type coenzyme Q10 100 mg tablet 100 mg PO QDAY #90 tabs 05/22/17 0 07/20/24 Rx multivit,mineral-fol ic acid 800 1 tab PO DAILY 05/26/18 07/20/24 H istory mcg-vit K 100 mcg-herbal no.289 tablet (Alive Once Daily Women 50 Plus) levothyroxine 137 mcg tablet 112 mcg PO DAILY 01/07/23 07/20/24 History spironolactone 25 mg tablet 25 mg PO DAILY #90 TABLETS 4 07/20/24 Rx metoprolol tartrate 25 mg tablet 12.5 mg (1/2 x 25 mg) PO BID dose 10/28/23 07/20/24 Rx has been decreased. #90 tabs fesoterodine 4 mg tablet,extended 4 mg PO QDAY 02/04/24 07/20/24 Hi story release 24 hr (Toviaz) apixaban 5 mg tablet (Eliquis) 5 mg PO BID #180 tabs 05/04/2412/06 Rx cholecalciferol (vitamin D3) 50 4,000 unit PO QDAY 07/20/24 History mcg (2,000 unit) tablet hydrocodone-acetamin ophen 5-325mg 1 tab PO QHS PRN 07/20/24 5 History 5mg-325mg Ejection fraction %: 55 Have you fallen in the past year?: No PFSH Medical History PAF (paroxysmal atrial fibrillation) New onset atrial fibrillation Fibromyalgia Obesity Hypothyroidism Nonrheumatic aortic (valve) stenosis Bicuspid aortic valve Hyperlipidemia Obstructive sleep apnea Surgical History History of ankle surgery Hx of shoulder surgery History of foot surgery History of lumbar surgery History of bladder suspension procedure History of hysterectomy History of left heart catheterization (09/06/10) History of aortic valve replacement with bioprosthetic valve (10/23/10) Family History Father Lung cancer Mother Cancer kidney cancer Heart disease PPM Social History Smoking Status: Never smoker ROS Const Const: Negative for fatigue, weakness, headache(s) or frequent falls Eyes Eyes: Negative for blurry vision ENT ENT: Negative for headache(s), dizziness or Nosebleed/epistaxis Cardio Chest Pain: Yes (one episode of chest pain-left sided x 1 day at rest) Palpitations: No Edema: Bilateral (occasional) Muscle aches with walking: None Resp Respiratory: Negative for SOB with activity, SOB at rest or SOB orthopnea SOB lying down (more content not included)... Normal [facility] Absolute lymphocyte countOrd ered By: Micah Díaz on 06-28-2024 Lymphocytes Auto (Unsp spec) [#/Vol] 2.16 10*3/uL 0.83-4.51 [facility] Absolute neutrophil countOrd ered By: Micah Díaz on 06-28-2024 Neutrophils (Bld) [#/Vol] 5.0 10*3/uL 2.0-7.7 [facility] Automated lymphocyte count a s percentage of total leukocytesOrdered By: Micah Díaz on 06-28-2024 Lymphocytes/100 WBC Auto (Unsp spec) 27.7 % 19-41 [facility] Basophil percentageOrdered B y: Micah JoeBre on 06-28-2024 Basophils/100 WBC (Bld) 0.6 % 0-1 [facility] CBC W/Diff, Automatedon 06-12 Absolute Lymph 2.16 X10 3/uL Normal 0.83-4.51 [facility] Comment on above: Performed By: #### L 503.6550, L100.0100, L503.6150 ####[facility] [address] [place], [address] Absolute Neut 5.0 X10 3/uL Normal 2.0-7.7 [facility] Comment on above: Performed By: #### L 503.6550, L100.0100, L503.6150 ####[facility] [address] [place], [address] Basophils/100 WBC (Bld) 0.6 % Normal 0-1 [facility] Comment on above: Performed By: #### L 503.6550, L100.0100, L503.6150 ####[facility] [address] [place], [address] Eosinophils/100 WBC (Bld) 1.3 % Normal 0-5 [facility] Comment on above: Performed By: #### L 503.6550, L100.0100, L503.6150 ####[facility] [address] [place], [address] Erythrocyte distribution width (RBC) [Ratio] 12.8 % Normal 11.6-14.6 [facility] Comment on above: Performed By: #### L 503.6550, L100.0100, L503.6150 ####[facility] [address] [place], [address] Hematocrit (Bld) [Volume fraction] 39.7 % Normal 37-47 [facility] Comment on above: Performed By: #### L 503.6550, L100.0100, L503.6150 ####[facility] [address] [place], [address] Hemoglobin (Bld) [Mass/Vol] 13.2 g/dL Normal 12.0-15.0 [facility] Comment on above: Performed By: #### L 503.6550, L100.0100, L503.6150 ####[facility] [address] [place], [address] IG% 0.400 Normal 0.0-0.9 [facility] Comment on above: Result Comment: IG% - Immature Granulocytes (promyelocytes, myelocytes and metamyelocytes) > 1% indicates that a LEFT SHIFT is Present. Performed By: #### L 503.6550, L100.0100, L503.6150 ####[facility] [address] [place], [address] Lymphocytes/100 WBC (Bld) 27.7 % Normal 19-41 [facility] Comment on above: Performed By: #### L 503.6550, L100.0100, L503.6150 ####[facility] [address] [place], [address] MCH (RBC) [Entitic mass] 30.4 pg Normal 27.0-32.0 [facility] Comment on above: Performed By: #### L 503.6550, L100.0100, L503.6150 ####[facility] [address] [place], [address] MCHC (RBC) [Mass/Vol] 33.2 g/dL Normal 32-36 [facility] Comment on above: Performed By: #### L 503.6550, L100.0100, L503.6150 ####[facility] [address] [place], [address] MCV (RBC) [Entitic vol] 91.5 fL Normal 81-99 [facility] Comment on above: Performed By: #### L 503.6550, L100.0100, L503.6150 ####[facility] [address] [place], [address] Monocytes/100 WBC (Bld) 6.1 % Normal 0-10 [facility] Comment on above: Performed By: #### L 503.6550, L100.0100, L503.6150 ####[facility] [address] [place], [address] Neutrophils/100 WBC (Bld) 63.9 % Normal 47-70 [facility] Comment on above: Performed By: #### L 503.6550, L100.0100, L503.6150 ####[facility] [address] [place], [address] Nucleated RBC (Bld) [#/Vol] 0 10*3/uL Normal 0-5 [facility] Comment on above: Performed By: #### L 503.6550, L100.0100, L503.6150 ####[facility] [address] [place], [address] Platelet mean volume (Bld) [Entitic vol] 10.7 fL Normal 6.2-12.0 [facility] Comment on above: Performed By: #### L 503.6550, L100.0100, L503.6150 ####[facility] [address] [place], [address] Platelets (Bld) [#/Vol] 217 10*3/uL Normal 150-450 [facility] Comment on above: Performed By: #### L 503.6550, L100.0100, L503.6150 ####[facility] [address] [place], [address] RBC (Bld) [#/Vol] 4.34 10*6/uL Normal 4.2-5.4 [facility] Comment on above: Performed By: #### L 503.6550, L100.0100, L503.6150 ####[facility] [address] [place], [address] RDW SD 42.5 fl Normal 35.1-43.9 [facility] Comment on above: Performed By: #### L 503.6550, L100.0100, L503.6150 ####[facility] [address] [place], [address] WBC (Bld) [#/Vol] 7.8 10*3/uL Normal 4.4-11.0 [facility] Comment on above: Performed By: #### L 503.6550, L100.0100, L503.6150 ####[facility] [address] [place], [address] Eosinophil percentageOrdered By: Micah Díaz on 06-28-2024 Eosinophils/100 WBC (Bld) 1.3 % 0-5 [facility] Erythrocyte distribution wid th ratioOrdered By: Micah Díaz on 06-28-2024 Erythrocyte distribution width (RBC) [Ratio] 12.8 % 11.6-14.6 [facility] Erythrocyte distribution wid th standard deviationOrdered By: Micah Bre on 06-28-2024 Erythrocyte distribution width (RBC) [Entitic vol] 42.5 fL 35.1-43.9 [facility] Erythrocyte distribution width (RBC) [Ratio] 42.5 fl 35.1-43.9 [facility] Ferritinon 06-28-2024 Ferritin [Mass/Vol] 96 ng/mL Normal 22-378 [facility] Comment on above: Performed By: #### L 503.6550, L100.0100, L503.6150 ####[facility] [address] [place], [address] Hematocrit Auto (Bld) [Volum e fraction]Ordered By: Micah Díaz on 06-28-2024 Hematocrit (Bld) [Volume fraction] 39.7 % 37-47 [facility] Hemoglobin measurementOrdere d By: Micah Díaz on 06-28-2024 Hemoglobin (Bld) [Mass/Vol] 13.2 g/dL 12.0-15.0 [facility] Immature granulocytes/100 WB C Auto (Bld)Ordered By: Micah Díaz on 06-28-2024 Immature granulocytes/100 WBC (Bld) 0.400 % 0.0-0.9 [facility] Comment on above: IG% - Immature Granu locytes (promyelocytes, myelocytes and metamyelocytes) > 1% indicates that a LEFT SHIFT is Present. Ironon 06-28-2024 Iron [Mass/Vol] 81 ug/dL Normal 50-170 [facility] Comment on above: Performed By: #### L 503.6550, L100.0100, L503.6150 ####[facility] [address] [place], [address] Iron (Unsp spec) [Mass/Mass] Ordered By: Micah Díaz on 06-28-2024 Iron [Mass/Vol] 81 ug/dL 50-170 [facility] Iron measurement (mass/mass) Ordered By: Micah Díaz on 06-28-2024 Iron (Unsp spec) [Mass/Mass] 81 ug/dL 50-170 [facility] Lymphocytes Auto (Unsp spec) [#/Vol]Ordered By: Micah Díaz on 06-28-2024 Lymphocytes (Bld) [#/Vol] 2.16 10*3/uL 0.83-4.51 [facility] Lymphocytes/100 WBC Auto (Un sp spec)Ordered By: Micah Díaz on 06-28-2024 Lymphocytes/100 WBC (Bld) 27.7 % 19-41 [facility] MCV (mean corpuscular volume ) determinationOrdered By: Micah Díaz on 06-28-2024 MCV (RBC) [Entitic vol] 91.5 fL 81-99 [facility] Mean corpuscular hemoglobin (MCH) determinationOrdered By: Micah Díaz on 06-28-2024 MCH (RBC) [Entitic mass] 30.4 pg 27.0-32.0 [facility] Mean corpuscular hemoglobin concentration (MCHC) determinationOrdered By: Micah Díaz on 06-28-2024 MCHC (RBC) [Mass/Vol] 33.2 g/dL 32-36 [facility] Mean platelet volume determi nationOrdered By: Micah Díaz on 06-28-2024 Platelet mean volume (Bld) [Entitic vol] 10.7 fL 6.2-12.0 [facility] Monocyte percentageOrdered B y: Micah Díaz on 06-28-2024 Monocytes/100 WBC (Bld) 6.1 % 0-10 [facility] Neutrophil percentageOrdered By: Micah Díaz on 06-28-2024 Neutrophils/100 WBC (Bld) 63.9 % 47-70 [facility] Nucleated red blood cell per centageOrdered By: Micah Díaz on 06-28-2024 Nucleated RBC/100 WBC (Bld) [Ratio] 0 % 0-5 [facility] Platelet countOrdered By: Balbir Díaz on 06-28-2024 Platelets (Bld) [#/Vol] 217 10*3/uL 150-450 [facility] RBC Auto (Bld) [#/Vol]Ordere d By: Micah Díaz on 06-28-2024 RBC (Bld) [#/Vol] 4.34 10*6/uL 4.2-5.4 [facility] Serum or plasma ferritin olivia surement (mass/volume)Ordered By: Micah Bre on 06-28-2024 Ferritin [Mass/Vol] 96 ng/mL 22-378 [facility] White blood cell (WBC) count Ordered By: Micah Díaz on 06-28-2024 WBC (Bld) [#/Vol] 7.8 10*3/uL 4.4-11.0 [facility] Anion gap in Serum or Plasma Ordered By: Christiano Medeiros on 06-17-2024 Anion gap [Moles/Vol] 13 mmol/L 5- [facility] BUN/creatinine ratioOrdered By: Christiano Medeiros on 06-17-2024 Urea nitrogen/Creatinine [Mass ratio] 17.3 mg/mg - [facility] Basic Metabolic Profile (BMP )on 06-17-2024 BUN/CRE 17.3 RATIO Normal - [facility] Comment on above: Performed By: #### L 501.1400, L500.2500 ####[facility] [address] [place], [address] Calcium [Mass/Vol] 9.7 mg/dL Normal 7.6-11.0 [facility] Comment on above: Performed By: #### L 501.1400, L500.2500 ####[facility] [address] [place], [address] Chloride [Moles/Vol] 102 mmol/L Normal 98-108 [facility] Comment on above: Performed By: #### L 501.1400, L500.2500 ####[facility] [address] [place], [address] CO2 [Moles/Vol] 24.8 mmol/L Normal 21.0-32.0 [facility] Comment on above: Performed By: #### L 501.1400, L500.2500 ####[facility] [address] [place], [address] Creatinine [Mass/Vol] 0.75 mg/dL Normal 0.70-1.20 [facility] Comment on above: Performed By: #### L 501.1400, L500.2500 ####[facility] [address] [place], [address] GAP 13 Normal 5-15 [facility] Comment on above: Performed By: #### L 501.1400, L500.2500 ####[facility] [address] [place], [address] GFR/1.73 sq M.predicted among non-blacks MDRD (S/P/Bld) [Vol rate/Area] 80 mL/min/{1.73_m2} Normal >60 [facility] Comment on above: Result Comment: mL/m in/1.73m2 CKD-EPI Creatinine Equation (2020) Performed By: #### L 501.1400, L500.2500 ####[facility] [address] [place], [address] Glucose [Mass/Vol] 97 mg/dL Normal 70-99 [facility] Comment on above: Performed By: #### L 501.1400, L500.2500 ####[facility] [address] [place], [address] Potassium [Moles/Vol] 4.3 mmol/L Normal 3.3-5.1 [facility] Comment on above: Performed By: #### L 501.1400, L500.2500 ####[facility] [address] [place], [address] Sodium [Moles/Vol] 140 mmol/L Normal 133-145 [facility] Comment on above: Performed By: #### L 501.1400, L500.2500 ####[facility] [address] [place], [address] Urea nitrogen [Mass/Vol] 13 mg/dL Normal 4-19 [facility] Comment on above: Performed By: #### L 501.1400, L500.2500 ####[facility] [address] [place], [address] Carbon dioxide, total [Moles /volume] in Central venous bloodOrdered By: Christiano Medeiros on 06-17-2024 CO2 [Moles/Vol] 24.8 mmol/L 21.0-32.0 [facility] Chloride assayOrdered By: Herman Medeiros on 06-17-2024 Chloride [Moles/Vol] 102 mmol/L 98-108 [facility] GFR/1.73 sq M.predicted robinson g non-blacks MDRD (S/P/Bld) [Vol rate/Area]Ordered By: Christiano Medeiros on 06-17-2024 Estimated GFR (MDRD) Non-Af Amer 80 >60 [facility] Comment on above: mL/min/1.73m2 CKD-EP I Creatinine Equation (2020) Glomerular filtration rate ( GFR) estimation/1.73 sq m using serum, plasma, or whole bOrdered By: Christiano Medeiros on 06-17-2024 GFR/1.73 sq M.predicted among non-blacks MDRD (S/P/Bld) [Vol rate/Area] 80 mL/min/{1.73_m2} >60 [facility] Comment on above: mL/min/1.73m2 CKD-EP I Creatinine Equation (2020) Potassium (Unsp spec) [Mass/ Vol]Ordered By: Christiano Medeiros on 06-17-2024 Potassium [Moles/Vol] 4.3 mmol/L 3.3-5.1 [facility] Potassium measurement (mass/ volume)Ordered By: Christiano Medeiros on 06-17-2024 Potassium (Unsp spec) [Mass/Vol] 4.3 mmol/L 3.3-5.1 [facility] Serum creatinine measurement (mass/volume)Ordered By: Christiano Medeiros on 06-17-2024 Creatinine [Mass/Vol] 0.75 mg/dL 0.70-1.20 [facility] Serum glucose measurement (m ass/volume)Ordered By: Christiano Medeiros on 06-17-2024 Glucose [Mass/Vol] 97 mg/dL 70-99 [facility] Serum or plasma calcium deo urement (mass/volume)Ordered By: Christiano Medeiros on 06-17-2024 Calcium [Mass/Vol] 9.7 mg/dL 7.6-11.0 [facility] Serum or plasma urea nitroge n measurement (mass/volume)Ordered By: Christiano Medeiros on 06-17-2024 Urea nitrogen [Mass/Vol] 13 mg/dL 4-19 [facility] Serum or plasma uric acid me asurement (mass/volume)Ordered By: Christiano Medeiros on 06-17-2024 Urate [Mass/Vol] 6.6 mg/dL High 2.6-6.0 [facility] Comment on above: The drugs N-Acetylcy steine and Metamizole may falsely depress this assay. Sodium levelOrdered By: Srikanth Medeiros on 06-17-2024 Sodium [Moles/Vol] 140 mmol/L 133-145 [facility] Uric Acidon 06-17-2024 URIC 6.6 mg/dL High 2.6-6.0 [facility] Comment on above: Result Comment: The drugs N-Acetylcysteine and Metamizole may falsely depress this assay. Performed By: #### L 501.1400, L500.2500 ####[facility] [address] [place], [place], [id number] PT D/C Summary (1)on 025 PT D/C Summary (1) [facility] Physical Therapy [address] [place] [address] / REHABILITATION SERVICES DISCHARGE SUMMARY MR#: [id number] Acct: [id number] Name: FABRICE MOON Rep #: [id number] : 1945 78 From: Jamal Glover PT, Cert. T, OCS Referring Dr.: Dr. Rene Lomax MD Status: REG RCR Insurance: MEDICARE PART A B [employer] SR SUPPLEMENT INS Discharge Summary D/C summary: It has been my pleasure to treat FABRICE MOON referred by Dr. Rene Lomax MD, with the diagnosis of BACK PAIN for a total of 8 visit(s). Discharge Date: 06/08/24 Please see the following information for a summary of their discharge status. Subjective Subjective: Sees Dr Aguilera next month Pt had Tens Unit at home Injections have not helped Pain Left: Pain Intensity (Out of 10): 6 Right Back: Pain Intensity (Out of 10): 6 Overall Improvement % Improvement: 20 Objective Objective/Function: POSTURE: mild forward posture GAIT: reciprocal pattern mild forward posture NEURO: denies paresthesia/tingling PALAPTION: unremarkable MMT: quads/hams 4/5 ,hip flexion 4-/5 ,ankle 4/5 LUMBAR ROM: flexion min loss ,extension mod loss ,side glides mod loss FLEXABILITY: hamstrings min tight Goals Goal 1:: Patient to be I with back Goal Progress: Progressing Goal 2:: Patient to demonstrate 50% improvement with less pain and improved function Goal Progress: Progressing Goal 3:: Patient to improve lumbar ROM for function of recovery to put on shoes and ASDLS Goal Progress: Progressing Goal 4:: Patient improve back oswestry score by 5 points to improve QOL and function. Goal Progress: Progressing Goal Progress: Progressing Plan Plan: d/c to HEP D/C Information d/c sentence: If there are questions or concerns regarding this patient's physical therapy, please feel free to call me at [phone]. Thank you for the referral of this patient. Sincerely, Jamal Glover, PT, Cert MDT, OCS Balance/Gait/Functio nal tests Balance/Special Test Scores Oswestry Low Back Score: 29 Improvement % Improvement: 20 07/27/24 0810 CC: Dr. Rene Lomax MD; Dr. Micah Díaz, JLA Signed Normal [facility] KAJAL SCREENING W TOMOon 05-19 KAJAL SCREENING W SYBIL * * *Final Report* * * DATE OF EXAM: May 19 2024 2:22PM WRW [id number] - KAJAL SCREENING W SYBIL / PROCEDURE REASON: multiple diagnoses * * * * Physician Interpretation * * * * RESULT: [place] [address] #[id number] - KAJAL SCREENING W SYBIL HISTORY: 78 year-old patient seen for screening and is asymptomatic in both breasts. Patient states no personal history of breast cancer. Patient states no personal history of other cancers. COMPARISON STUDIES: The present examination has been compared to prior imaging studies dated 02/24/2018 (mammogram), 04/01/2019 (mammogram), 01/16/2021 (mammogram) and 03/25/2022 (mammogram). MAMMOGRAM TECHNIQUE: The study was acquired using full field digital technology and interpreted from soft copy. Digital Breast Tomosynthesis (DBT) images were obtained and used to assist in the interpretation of this examination. MAMMOGRAM FINDINGS: There are scattered areas of fibroglandular density. No suspicious masses, calcifications or other abnormalities are seen in either breast. There are no significant interval changes. IMPRESSION: There is no mammographic evidence of malignancy in either breast. Routine screening mammogram is recommended. Annual mammogram will be due in 1 year. BI-RADS Category 1: Negative RISK: Based on the Tyrer-Cuzick (TC) risk assessment model, this patient has a 1.3% lifetime risk of developing breast cancer, meaning they are at average risk for developing breast cancer. However, this is only an estimate based on available history provided on the patient's questionnaire. We encourage all patients to talk with their providers about these results, further recommendations for managing breast health, and appropriate supplemental screening options if the patient has dense breast tissue. Interpreting Radiologist: Aylin Nicole M.D. Electronically signed on: 05/20/2024 Parts Cataloguer: RUFINA Transcribe Date/Time: May 19 2024 1:45P Dictated by: AYLIN NICOLE MD This examination was interpreted and the report reviewed and electronically signed by: AYLIN NICOLE MD on May 20 2024 5:03PM EST [id number] CN Normal [facility] CNOVon 05-18-2024 CNOV Office Visit (OBGYWM) FABRICE MOON Jennifer ([id number]) 1945 F CHT Date Time Provider Department 05/18/24 2:00 PM CASSY ZUNIGA OBGYWM During your visit today, we recorded the following information about you: Blood pressure Weight Height 148/74 87.5 kg 1.645 m Cassy Zuniga MD 05/18/2024 2:25 PM Signed Jennifer is a 78 year old who presents for an annual gynecologic exam with complaints, OAB, sees Dr. Christensen for urogyn. . 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 Diarrhea Heartburn Hx of echocardiogram 05/14/2021 Myalgia and myositis, unspecified Other and unspecified hyperlipidemia was told to take statin 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 asymptomatic currently PMH - PAST MEDICAL HISTORY OF hiatal hernia PMH - PAST MEDICAL HISTORY OF mild aortic stenosis Unspecified hypothyroidism many years PAST SURGICAL HISTORY Procedure Laterality Date COLONOSCOPY FLX DX W/COLLJ SPEC WHEN PFRMD 12/2009 Colonoscopy EGD TRANSORAL BIOPSY SINGLE/MULTIPLE 06/27/2006 FOOT SURGERY HX 11/13/2011 left foot HEART SURGERY HX 10/23/2010 aortic valve replacement LAMINECTOMY W/O FFD 1/2 VERT SEG LUMBAR 04/14/1981 Laminectomy, lumbar LAPAROSCOPIC COLPOPEXY 12/10/2021 Dr Pineda LIG/TRNSXJ FLP TUBE ABDL/VAG APPR UNI/BI 04/14/1975 Tubal ligation PAST SURGICAL HISTORY OF 09/06/2005 heart cath PAST SURGICAL HISTORY OF 09/16/2005 RIVAS PAST SURGICAL HISTORY OF 10/12/2002 heart cath PAST SURGICAL HISTORY OF Back repair of hernited disc l-5 PAST SURGICAL HISTORY OF 12/10/2021 XI ROBOTIC LAPAROSCOPIC COLPOPEXY REPAIR RECTOCELE SEPARATE PROCEDURE 04/14/1994 with cystocele rectrocele SHOULDER SURGERY HX 04/14/2008 TOTAL ABDOMINAL HYSTERECT W/WO RMVL TUBE OVARY 04/14/1978 Hysterectomy, MIYA, ovaries remain FAMILY HISTORY Problem Relation Age of Onset Cancer Father lung, that went to brain Cancer Mother kidney Diabetes Maternal Aunt Diabetes Maternal Uncle Coronary Artery Disease Paternal Uncle multiple in 50's Prostate Cancer Brother No Known Problems Brother No Known Problems Brother Diabetes Maternal Grandmother Diabetes Maternal Grandfather Cancer Paternal Grandmother No Known Problems Paternal Grandfather SOCIAL HISTORY Social History Tobacco Use Smoking status: Never Smokeless tobacco: Never Vaping Use Vaping status: Never Used Substance Use Topics Alcohol use: Yes Comment: Socially Drug use: No SENSITIVE EXAM: The sensitive examination was discussed with the Patient or Patient's Authorized Resolute Professional. As applicable, any other physician, advance practice provider, medical student, or other health professional student that will be observing or involved in the sensitive examination for educational or training purposes was discussed with the Patient or Authorized Resolute Professional. The Patient or Authorized Resolute Professional has agreed to proceed with the sensitive examination. (Sensitive examination includes inspection and/or palpation of the breasts, pelvis, prostate and anorectal regions). EXAM: BP 148/74 Ht 5' 4.75 (1.65m) Wt 193 lb (87.5kg) BMI 32.35 kg/(m2). GENERAL: pleasant, female in no apparent distress H BREAST: soft, non-tender, symmetric, no dominant mass, normal nipple-areolar complex, no lymphadenopathy, and no nipple discharge CHEST: Normal inspiratory effort ABDOMEN: soft, non-tender, and no masses PELVIC: external genitalia normal, normal Bartholin's glands, urethra, [place]'s glands, no vulvar lesions, good vaginal support, physiologic discharge present, normal appearing perineal body and perianal region, cervix surgically absent BIMANUAL: no adnexal masses, non-tender, and uterus surgically absent RECTOVAGINAL: deferred. ASSESSMENT/PLAN: 1) Health maintenance: Pap/HPV screening no longer needed Mammogram ordered no need for annual exams. f/u PRN 2) Follow up one year or sooner as needed Cassy Zuniga MD Allergies As of Date: 05/18/2024 Noted Allergy Reaction AMLODIPINE 06/13/2022 7 - Swelling AMITRIPTYLINE 07/22/2003 2 - Rash ELAVIL (AMITRIPTYLINE HCL) 01/28/2006 5 - Intolerance Comments: Has taken with no reaction NAPROXYN (NAPROXEN) 12/13/2005 OXYBUTYNIN 07/24/2021 7 - Swelling TOLTERODINE 03/27/2022 14 - Other: See Comments Comments: Facial swelling and itching VALDECO (more content not included)... Normal [facility] Inital Evaluation (1) - PTon 05-12-2024 Inital Evaluation (1) - PT [facility] [address] [place] [address] / REHABILITATION SERVICES INITIAL EVALUATION MR#: [id number] Acct: [id number] Name: FABRICE MOON Rep #: [id number] : 1945 78 From: Jamal Glover PT, Cert. T, OCS Referring Dr.: Dr. Rene Lomax MD Status: REG RCR Insurance: MEDICARE PART A B [employer] SR SUPPLEMENT INS Patient's Visit Information Visit Information Visit Information: FABRICE MOON is a 78 year old F referred to Physical Therapy by Dr. Rene Lomax MD with a diagnosis of BACK PAIN. Date of Evaluation: 05/12/24 Physical Therapist: Jamal Glover PT, Cert T, OCS Visit Plan Frequency: 2x /Week Duration: 4 Weeks Plan: PT INTERVENTIONS DLS ,POSTURAL EX'S ,LE FLEXABILITY ,ACTIVITY MODIFICATION AND MODALITIES' Subjective Subjective: This 78 y/o female presents to physical therapy with lumbar pain. Patient has had back pain for many years. Patient had lumbar discectomy at 31 y/o. Patient seen DR Aguilera and had epidural injections. Patient has had last injection 3 months ago.Patient recently diagnosed with A-FIB. Patient has had pain located LS and to lateral hip. Aggravating factors sitting ,bending ,walkin/standing 5 . Alleviating factors rest. Denies paresthesia/tingling . Bowel/bladder -. Patient sleeping affects pain. Patient has had PT in past. Patient had MRI and imaging 1 year ago.Patient had no recent imaging adn prescribed oxycodone. Patient condition affects QOL and function. Patient goals to decrease pain. SOCAIL: single VOCATION: retired Pain Left: Pain Intensity (Out of 10): 7 Right Back: Pain Intensity (Out of 10): 7 Objective Objective: POSTURE: mild forward posture GAIT: reciprocal pattern mild forward posture NEURO: denies paresthesia/tingling PALAPTION: unremarkable MMT: quads/hams 4/5 ,hip flexion 4-/5 ,ankle 4/5 LUMBAR ROM: flexion min loss ,extension mod loss ,side glides mod loss FLEXABILITY: hamstrings min tight Special Tests L/S Slump test left side: Negative L/S Slump test right side: Negative L/S Left Straight Leg Raise: Negative L/S Right Straight Leg Raise: Negative Balance/Special Test Scores Oswestry Low Back Score: 29 Goals Goal 1:: Patient to be I with back Goal Time Frame: 4-6 Weeks Goal 2:: Patient to demonstrate 50% improvement with less pain and improved function Goal Time Frame: 4-6 Weeks Goal 3:: Patient to improve lumbar ROM for function of recovery to put on shoes and ASDLS Goal Time Frame: 4-6 Weeks Goal 4:: Patient improve back oswestry score by 5 points to improve QOL and function. Goal Time Frame: 4-6 Weeks Rehabilitation Potential Physical Therapy Diagnosis: This patient has lumbar pain with radicular symptoms left hip many years and h/o lumbar surgery many years ago with current pain with positioning worse with walking/standing thus benefit from skilled PT Rehabilitation Potential: Fair Anticipated Interventions Patient/Client Instruction: Educate patient on: Condition and Plan of Care For the Purpose of:: To decrease pain, To increase ROM, To improve muscle performance and motor function, To improve ability to perform ADL's, To increase tolerance to activity/condition/p osition, To improve ability of physical actions for home/community/work/ leisure, To improve health of tissue, To decrease soft tissue restriction and To increase flexibility/ROM Therapeutic Exercise to Include: Strength training, Endurance training, Balance training, Postural training, Flexibilty training and Dynamic Lumbar Stabilization For the Purpose of:: To decrease pain, To increase ROM, To increase oxygenation perfusion, To improve ability to perform ADL's, To improve ability of physical actions for home/community/work /leisure, To improve health of tissue, To decrease soft tissue restriction and To increase flexibility/ROM TENS: Yes IF ES: Yes Cryotherapy (ice pack, ice massage): Yes Thermo therapy (hot pack): Yes Ultrasound (thermal/non thermal): Yes For the Purpose of:: To decrease pain, To increase ROM, To improve nutrient delivery to tissue, To increase oxygenation perfusion, To improve health of tissue and To decrease soft tissue restriction Text: Thank you for the opportunity to evaluate your patient. For Medicare and Medicare HMO plans, please review the plan of care and approve it. It will need to be FAXED BACK to us at [phone] for Medicare purposes. For Medicare only, by signing this I certify the plan of care. Please let me know if there are questions or concerns regarding this plan of care. Physician Signature: D ate: 05/12/24 1556 CC: Dr. Rene Lomax MD; Dr. Micah Díaz DO CAROLA Signed Normal [facility] 19-TA-Amimwxy DOrdered By: Raúl Camarillo on 04-27-2024 Vitamin D 25-Hydroxy 43.8 ng/mL [facility] Comment on above: Vitamin D 25(OH) Sta tus Range Deficiency <20 ng/mL (50nmol/L) Insufficiency 20 - 30 ng/mL (50 - 75 nmol/L) Sufficiency 30 - 100 ng/mL (75 - 250 nmol/L) Toxicity >100 ng/mL (>250 nmol/L) Albumin to globulin ratioOrd ered By: Matti Camarillo on 04-27-2024 Albumin/Globulin [Mass ratio] 1.0 {ratio} 0.9-2.4 [facility] Bilirubin, totalOrdered By: Matti Camarillo on 04-27-2024 Bilirubin [Mass/Vol] 0.60 mg/dL 0.20-1.00 [facility] Comment on above: For patients on eltr ombopag therapy, use of Dimension [place] TBIL is not recommended. Blood urea nitrogen (BUN)/cr eatinine ratioOrdered By: Matti Camarillo on 04-27-2024 Urea nitrogen/Creatinine [Mass ratio] 13.9 mg/mg 10-20 [facility] Carbon dioxide measurementOr dered By: Matti Camarillo on 04-27-2024 CO2 [Moles/Vol] 27.0 mmol/L 21.0-32.0 [facility] Chloride measurementOrdered By: Matti Camarillo on 04-27-2024 Chloride [Moles/Vol] 105 mmol/L 98-107 [facility] Comprehensive Metabolic Prof ilon 04-27-2024 Albumin [Mass/Vol] 3.8 g/dL Normal 3.2-5.0 [facility] Comment on above: Performed By: #### L 501.9520, L506.1000, L500.4050 #### [facility] [address] [place], [address] Albumin/Globulin [Mass ratio] 1.0 {ratio} Normal 0.9-2.4 [facility] Comment on above: Performed By: #### L [id number], L506.1000, L500.4050 #### [facility] [address] [place], [address] ALK P 80 U/L Normal 45-117 [facility] Comment on above: Performed By: #### L [id number], L506.1000, L500.4050 #### [facility] [address] [place], [address] ALT [Catalytic activity/Vol] 30 U/L Normal 13-56 [facility] Comment on above: Performed By: #### L [id number], L506.1000, L500.4050 #### [facility] [address] [place], [address] AST [Catalytic activity/Vol] 25 U/L Normal 15-37 [facility] Comment on above: Performed By: #### L [id number], L506.1000, L500.4050 #### [facility] [address] [place], [address] Bilirubin [Mass/Vol] 0.60 mg/dL Normal 0.20-1.00 [facility] Comment on above: Result Comment: For patients on eltrombopag therapy, use of Dimension [place] TBIL is not recommended. Performed By: #### L [id number], L506.1000, L500.4050 #### [facility] [address] [place], [address] BUN/CRE 13.9 RATIO Normal 10-20 [facility] Comment on above: Performed By: #### L [id number], L506.1000, L500.4050 #### [facility] [address] [place], [address] CA,Total 9.5 mg/dL Normal 8.5-10.1 [facility] Comment on above: Performed By: #### L [id number], L506.1000, L500.4050 #### [facility] [address] [place], [address] Chloride [Moles/Vol] 105 mmol/L Normal 98-107 [facility] Comment on above: Performed By: #### L 501.9520, L506.1000, L500.4050 #### [facility] [address] [place], [address] CO2 [Moles/Vol] 27.0 mmol/L Normal 21.0-32.0 [facility] Comment on above: Performed By: #### L 501.9520, L506.1000, L500.4050 #### [facility] [address] [place], [address] Creatinine [Mass/Vol] 0.72 mg/dL Normal 0.55-1.02 [facility] Comment on above: Result Comment: The validity of the calculated GFR GFRAA in patients over 70 years has not been determined. Clinical correlation is essential. Performed By: #### L 501.9520, L506.1000, L500.4050 #### [facility] [address] [place], [address] EST GFR - AA 100 mL/min Normal >60 [facility] Comment on above: Result Comment: Afri can Palestinian GFR Calc Performed By: #### L 501.9520, L506.1000, L500.4050 #### [facility] [address] [place], [address] GAP 7 Normal 5-15 [facility] Comment on above: Performed By: #### L 501.9520, L506.1000, L500.4050 #### [facility] [address] [place], [address] GFR/1.73 sq M.predicted among non-blacks MDRD (S/P/Bld) [Vol rate/Area] 83 mL/min/{1.73_m2} Normal >60 [facility] Comment on above: Result Comment: Non- GFR Calc Performed By: #### L 501.9520, L506.1000, L500.4050 #### [facility] [address] [place], [address] Globulin (S) [Mass/Vol] 3.9 g/dL Normal 2.2-4.2 [facility] Comment on above: Performed By: #### L 501.9520, L506.1000, L500.4050 #### [facility] [address] [place], [address] Glucose [Mass/Vol] 95 mg/dL Normal 74-106 [facility] Comment on above: Performed By: #### L 501.9520, L506.1000, L500.4050 #### [facility] [address] [place], [address] Potassium [Moles/Vol] 4.3 mmol/L Normal 3.5-5.1 [facility] Comment on above: Performed By: #### L 501.9520, L506.1000, L500.4050 #### [facility] [address] [place], [address] Sodium [Moles/Vol] 139 mmol/L Normal 136-145 [facility] Comment on above: Performed By: #### L 501.9520, L506.1000, L500.4050 #### [facility] [address] [place], [address] T PROT 7.7 g/dL Normal 6.4-8.2 [facility] Comment on above: Performed By: #### L 501.9520, L506.1000, L500.4050 #### [facility] [address] [place], [address] Urea nitrogen [Mass/Vol] 10 mg/dL Normal 7-18 [facility] Comment on above: Performed By: #### L 501.9520, L506.1000, L500.4050 #### [facility] [address] [place], [address] Estimated glomerular filtrat ion rate (GFR) AmericanOrdered By: Matti Caamrillo on 04-27-2024 Estimated GFR (MDRD) Amer 100 mL/min >60 [facility] Comment on above: GFR Calc Glomerular filtration rate ( GFR) estimationOrdered By: Matti Camarillo on 04-27-2024 Estimated GFR (MDRD) Non-Af Amer 83 mL/min >60 [facility] Comment on above: Non- GFR Calc Glucose measurementOrdered B y: Matti Camarillo on 04-27-2024 Glucose [Mass/Vol] 95 mg/dL 74-106 [facility] - Chemistry and C hemistry - challengeOrdered By: Matti Camarillo on 04-27-2024 AST [Catalytic activity/Vol] 25 U/L 15-37 [facility] Potassium measurementOrdered By: Matti Camarillo on 04-27-2024 Potassium [Moles/Vol] 4.3 mmol/L 3.5-5.1 [facility] Serum anion gap measurementO rdered By: Matti Camarillo on 04-27-2024 Anion gap [Moles/Vol] 7 mmol/L 5-15 [facility] Serum globulin measurementOr dered By: Matti Camarillo on 04-27-2024 Globulin (S) [Mass/Vol] 3.9 g/dL 2.2-4.2 [facility] Serum or plasma alanine oliveira otransferase (ALT) measurementOrdered By: Matti Camarillo on 04-27-2024 ALT [Catalytic activity/Vol] 30 U/L 13-56 [facility] Serum or plasma albumin deo urement (mass/volume)Ordered By: Matti Camarillo on 04-27-2024 Albumin [Mass/Vol] 3.8 g/dL 3.2-5.0 [facility] Serum or plasma alkaline liberty sphatase measurementOrdered By: Matti Camarillo on 04-27-2024 ALP [Catalytic activity/Vol] 80 U/L 45-117 [facility] Serum or plasma calcium deo urement (mass/volume)Ordered By: Matti Camarillo on 04-27-2024 Calcium [Mass/Vol] 9.5 mg/dL 8.5-10.1 [facility] Serum or plasma creatinine m easurement (mass/volume)Ordered By: Matti Camarillo on 04-27-2024 Creatinine [Mass/Vol] 0.72 mg/dL 0.55-1.02 [facility] Comment on above: The validity of the calculated GFR & GFRAA in patients over 70 years has not been determined. Clinical correlation is essential. Serum or plasma urea nitroge n measurement (mass/volume)Ordered By: Matti Camarillo on 04-27-2024 Urea nitrogen [Mass/Vol] 10 mg/dL 7-18 [facility] Sodium levelOrdered By: Kiran Camarillo on 04-27-2024 Sodium [Moles/Vol] 139 mmol/L 136-145 [facility] TSH QnOrdered By: Matti baker on 04-27-2024 Thyroid Stimulating Hormone (TSH) 1.640 uIU/mL 0.358-3.740 [facility] Thyroid Stim Hormone (TSH)on 04-27-2024 TSH 1.640 uIU/mL Normal 0.358-3.740 [facility] Comment on above: Performed By: #### L 501.9520, L506.1000, L500.4050 ####[facility] [address] [place], [place], [address] Total proteinOrdered By: Jacinto Camarillo on 04-27-2024 Protein [Mass/Vol] 7.7 g/dL 6.4-8.2 [facility] Vitamin D,25 Hydroxyon 04-27 Vitamin D 25-OH 43.8 ng/mL Normal [facility] Comment on above: Result Comment: Gill min D 25(OH) Status Range Deficiency <20 ng/mL (50nmol/L) Insufficiency 20 - 30 ng/mL (50 - 75 nmol/L) Sufficiency 30 - 100 ng/mL (75 - 250 nmol/L) Toxicity >100 ng/mL (>250 nmol/L) Performed By: #### L [id number], L506.1000, L500.4050 #### [facility] [address] [place], [place], [address] [facility] (OBGY[facility]) FABRICE MOON ([id number]) 1945 F T Date Time Provider Department 03/26/24 CASSY ZUNIGA OBSOY During your visit today, we recorded the following information about you: Em Gusman RN 03/26/2024 10:31 AM Signed Patient calling asking if Dr. Zuniga wants her to continue getting mammograms. Patients last mammogram was on 04/03/23. If mammogram is needed she will need an order. Patient also has not been seen in office since 2020. Do you want patient to be seen for annual exam? Patient aware provider is out of office until Friday. GUERITA Madden Rebecca L, MD 03/29/2024 9:47 AM Signed I would recommend as long as she feels up to doing the mammogram and her health status is such she would accept treatment for a cancer that is found she continue to do mammograms. Her PCP office can order for her. She doesn't have to come in for an annual but I would happily ssee herfor any problem visit if needed or she wants a Pelvic/breast exam please scheduel (any 20 min interpreter and translator slot) MD Alonzo Patino Tara, RN 03/29/2024 10:17 AM Signed Pt notified and prefers to schedule pelvic/breast exam with RR since she has not been seen since 2020. Appt scheduled with RR 05/03/24. Bhumi Beavers RN Allergies As of Date: 03/26/2024 Noted Allergy Reaction AMLODIPINE 06/13/2022 7 - Swelling AMITRIPTYLINE 07/22/2003 2 - Rash ELAVIL (AMITRIPTYLINE HCL) 01/28/2006 5 - Intolerance Comments: Has taken with no reaction NAPROXYN (NAPROXEN) 12/13/2005 OXYBUTYNIN 07/24/2021 7 - Swelling TOLTERODINE 03/27/2022 14 - Other: See Comments Comments: Facial swelling and itching VALDECOXIB 07/22/2003 2 - Rash Date Reviewed: 04/20/2023 Reviewed by: Holly Grant MA - Fully Assessed Reason for Visit: Patient Question [1477] Primary Visit Diagnosis:Encounter for screening mammogram for malignant neoplasm of breast [Z12.31] Order(s):[facility] SCREENING [[id number]] Order #: [id number] FUTURE Prescriptions as of 03/29/2024 - levothyroxine (SYNTHROID) 112 mcg tablet TAKE 1 TABLET BY MOUTH EVERY DAY IN THE MORNING EXCEPT ON SUNDAYS ONLY TAKE EXTRA 1/2 TAB - ELIQUIS 5 mg tab(s) Take 1 tablet by mouth every 12 hours. - dronedarone (MULTAQ) 400 mg tab Take by mouth. - diclofenac (VOLTAREN ARTHRITIS PAIN) 1 % topical gel Apply 4 g to affected area four times daily. - gabapentin (NEURONTIN) 600 mg tablet - FERROUS SULFATE ORAL Take by mouth. - CPAP as directed. For sleep apnea started 10/09/2004 - cholecalciferol, vitamin D3, (VITAMIN D3 ORAL) Take by mouth. - Lactobacillus acidophilus (PROBIOTIC) 10 billion cell cap Take by mouth. - coenzyme Q10 (COENZYME Q-10) 100 mg cap capsule Take 100 mg by mouth twice daily. - diphenoxylate-atropi ne (LOMOTIL) 2.5-0.025 mg per tablet Take by mouth. 4 times a day as needed. 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] 07/27/2003 ABDOMINAL PAIN EPIGASTRIC [R10.13] ACUTE GASTRITIS W/O HEMORRHAGE [K29.00] Pre-op testing [Z01.818] 10/22/2010 10/24/2010 10/23/10: AVR #23 CE [V999.95] 10/23/2010 Hypertension [I10] 10/23/2010 Pain following surgery or procedure [G89.18] 10/23/2010 Hypotension [I95.9] 10/24/2010 Anxiety [F41.9] 10/24/2010 Thrombocytopenia (HCC) [D69.6] 10/25/2010 10/27/2010 Sinus tachycardia [R00.0] 10/28/2010 Vaginal enterocele [N81.5] 12/29/2020 Status post aortic valve replacement [Z95.2] 12/10/2021 Obesity (BMI 30.0-34.9) [E66.811] 12/10/2021 Medications Discontinued During This Encounter Prescriptions - amLODIPine (NORVASC) 5 mg tablet (Discontinued) Reported on 04/20/2023 - aspirin, enteric coated (ASPIRIN, ENTERIC COATED) 81 mg EC tablet (Discontinued) Reported on 04/20/2023 - B.ani-L.aci-L.dayne-L. plan-L.Van 10 billion cell (2 billion ea) cap (Discontinued) Reported on 04/20/2023 - Levothyroxine 100 mcg ORAL Cap (Discontinued) Reported on 04/20/2023 - metoprolol tartrate 25 mg ORAL tablet (Discontinued) Take 25 mg by mouth two times a day. Pt takes 1 tablet twice daily - OTC PRODUCT (Discontinued) Reported on 04/20/2023 - solifenacin (VESICARE) 10 mg tablet (Discontinued) Take 1 tablet by mouth once daily. - spironolactone (ALDACTONE) 25 mg tablet (Discontinued) Reported on 04/20/2023 - Trospium (SANCTURA SR) 60 mg cp24 (Discontinued) Reported on 03/27/2022 - Trospium (SANCTURA SR) 60 mg cp24 (Discontinued) Reported on 03/27/2022 Encounter Status:Closed by BHUMI BEAVERS on 03/29/24 Normal [facility] Basophil percentageOrdered B y: ELZBIETA KNOX on 07-01-2023 Bilirubin [Mass/Vol] 0.60 mg/dL 0.20-1.00 [facility] Comment on above: For patients on eltr ombopag therapy, use of Dimension [place] TBIL is not recommended. Chloride [Moles/Vol] 106 mmol/L 98-107 [facility] Glucose [Mass/Vol] 98 mg/dL 74-106 [facility] Potassium [Moles/Vol] 4.1 mmol/L 3.5-5.1 [facility] Protein [Mass/Vol] 7.7 g/dL 6.4-8.2 [facility] Sodium [Moles/Vol] 142 mmol/L 136-145 [facility] - Chemistry and C hemistry - challengeOrdered By: ELZBIETA KNOX on 07-01-2023 Albumin/Globulin [Mass ratio] 1.0 {ratio} 0.9-2.4 [facility] ALP [Catalytic activity/Vol] 70 U/L 45-117 [facility] ALT [Catalytic activity/Vol] 30 U/L 13-56 [facility] CO2 [Moles/Vol] 29.0 mmol/L 21.0-32.0 [facility] Globulin (S) [Mass/Vol] 3.9 g/dL 2.2-4.2 [facility] Urea nitrogen/Creatinine [Mass ratio] 17.9 mg/mg 10-20 [facility] No Panel InformationOrdered By: ELZBIETA KNOX on 07-01-2023 Estimated GFR (MDRD) Amer 99 mL/min >60 [facility] Comment on above: GFR Calc Estimated GFR (MDRD) Non-Af Amer 82 mL/min >60 [facility] Comment on above: Non- GFR Calc Serum or plasma calcium deo urement (mass/volume)Ordered By: ELZBIETA KNOX on 07-01-2023 Calcium [Mass/Vol] 9.1 mg/dL 8.5-10.1 [facility] Serum or plasma creatinine m easurement (mass/volume)Ordered By: ELZBIETA KNOX on 07-01-2023 Creatinine [Mass/Vol] 0.73 mg/dL 0.55-1.02 [facility] Comment on above: The validity of the calculated GFR & GFRAA in patients over 70 years has not been determined. Clinical correlation is essential. Serum or plasma thyroid stim ulating hormone (TSH) measurement (units/volume)Ordered By: ELZBIETA KNOX on 07-01-2023 TSH Qn 1.08 uIU/mL 0.358-3.74 [facility] Serum or plasma urea nitroge n measurement (mass/volume)Ordered By: ELZBIETA KNOX on 07-01-2023 Urea nitrogen [Mass/Vol] 13 mg/dL 7-18 [facility] Thin prep Papanicolaou smear with manual screeningOrdered By: ELZBIETA KNOX on 07-01-2023 Thin prep Papanicolaou smear with manual screening 3.8 g/dL 3.2-5.0 [facility] Thin prep Papanicolaou smear with manual screening 18 U/L 15-37 [facility] Thin prep Papanicolaou smear with manual screening 7 5-15 [facility] XR Wrist - left PA and Later al and Obliqueon 04-21-2023 IMPRESSION: Findings are suggestive of degenerative changes in the first carpometacarpal joint. Parts Cataloguer: IVANA Transcribe Date/Time: Apr 21 2023 8:58A Dictated by : HIGINIO VERDUZCO MD This examination was interpreted and the report reviewed and electronically signed by: HIGINIO VERDUZCO MD on Apr 21 2023 9:04AM [facility] DIVISION OF RADIOLOGY * * *Final Report* * * DATE OF EXAM: Apr 21 2023 8:57AM WOX [id number] - XR WRIST 3V PA/LAT/OBL LT / PROCEDURE REASON: Left wrist pain * * * * Physician Interpretation * * * * EXAM TITLE: XR WRIST 3V PA/LAT/OBL LT EXAM DATE/TIME: 04/21/2023 8:57 AM COMPARISON: None. CLINICAL INDICATION/HISTORY: Radial wrist pain. No known injury. TECHNIQUE: PA, lateral, oblique and ulnar deviation views of left wrist are presented. FINDINGS: No acute fractures or subluxations are noted. Mild heterogeneous appearance in the base of the second metacarpal bone. First carpometacarpal joint space narrowing is visualized, with osteophyte formation. The triscaphe joint space appears maintained. The mineralization of the bones is normal. There is no significant soft tissue swelling. DIVISION OF RADIOLOGY Provider, [facility] - 04/21/2023 * * *Final Report* * * DATE OF EXAM: Apr 21 2023 8:57AM WOX [id number] - XR WRIST 3V PA/LAT/OBL LT / PROCEDURE REASON: Left wrist pain * * * * Physician Interpretation * * * * EXAM TITLE: XR WRIST 3V PA/LAT/OBL LT EXAM DATE/TIME: 04/21/2023 8:57 AM COMPARISON: None. CLINICAL INDICATION/HISTORY: Radial wrist pain. No known injury. TECHNIQUE: PA, lateral, oblique and ulnar deviation views of left wrist are presented. FINDINGS: No acute fractures or subluxations are noted. Mild heterogeneous appearance in the base of the second metacarpal bone. First carpometacarpal joint space narrowing is visualized, with osteophyte formation. The triscaphe joint space appears maintained. The mineralization of the bones is normal. There is no significant soft tissue swelling. IMPRESSION IMPRESSION: Findings are suggestive of degenerative changes in the first carpometacarpal joint. Parts Cataloguer: IVANA Transcribe Date/Time: Apr 21 2023 8:58A Dictated by : HIGINIO VERDUZCO MD This examination was interpreted and the report reviewed and electronically signed by: HIGINIO VERDUZCO MD on Apr 21 2023 9:04AM EST [facility] Radiology Study observation (narrative) Kathy haley [facility] XR Wrist - left PA and Later al and ObliqueOrdered By: [facility] Provider on 04-21-2023 [facility] MG Breast Screeningon 2022 IMPRESSION: BENIGN FINDING There is no mammographic evidence of malignancy. A 1 year screening mammogram is recommended. Apolonia Wilks M.D., mc/augustine:04/04/2023 09:25:02 Abnormal Psychology Teacher(s): RT Iggy(R)(M), [facility] letter sent: Normal over 40 Mammogram BI-RADS: 2 Benign finding Multiple national specialty organizations have released breast cancer screening guidelines for women at average risk for developing breast cancer - guidelines that are based on both evidence and opinion, yet differ on when to start and how often to screen for breast cancer. With representation from Breast Imaging, Internal Medicine, Women's Health, Family Medicine, and Medical/Surgical Oncology, the [facility] has carefully reviewed the data and reached the following consensus: 1) All women should engage in shared decision-making with their providers to decide when to start and how often to screen; 2) All women should have the opportunity to start screening mammography at age 40; 3) For women ages 45-55, we recommend annual screening mammograms; 4) For women ages 55 and over, we support both the transition from an annual to a biennial interval if this aligns more with patient's values and preferences, or continuation with annual screening; 5) All women should discuss with their providers when to stop screening mammograms. Parts Cataloguer: Augustine Transcribe Date/Time: Apr 03 2023 12:41P Dictated by: APOLONIA WILKS MD This examination was interpreted and the report reviewed and electronically signed by: APOLONIA WILKS MD on Apr 04 2023 9:25AM EST DIVISION OF RADIOLOGY * * *Final Report* * * DATE OF EXAM: Apr 03 2023 1:30PM [facility] 0581 - KAJAL SCREENING / PROCEDURE REASON: Encounter for screening mammogram for malignant neoplasm of breast * * * * Physician Interpretation * * * * RESULT: #[id number] - KAJAL SCREENING BILATERAL DIGITAL SCREENING MAMMOGRAM WITH CAD: 04/03/2023 HISTORY: Encounter For Screening Mammogram For Malignant Neoplasm Of Breast / Screening Mammogram-Patient reports NO symptoms. /priors available for comparison. RESULT: TECHNIQUE: The study was acquired using full field digital technology and interpreted from soft copy. Current study was also evaluated with a Computer Aided Detection (CAD). Comparison is made to exam dated: 03/25/2022 mammogram - [facility]. There are scattered areas of fibroglandular density. There are benign vascular calcifications in both breasts. No significant masses, calcifications, or other findings are seen in either breast. There has been no significant interval change. DIVISION OF RADIOLOGY Provider, [facility] - 04/04/2023 * * *Final Report* * * DATE OF EXAM: Apr 03 2023 1:30PM [facility] 0581 - [facility] SCREENING / PROCEDURE REASON: Encounter for screening mammogram for malignant neoplasm of breast * * * * Physician Interpretation * * * * RESULT: #[id number] - KAJAL SCREENING BILATERAL DIGITAL SCREENING MAMMOGRAM WITH CAD: 04/03/2023 HISTORY: Encounter For Screening Mammogram For Malignant Neoplasm Of Breast / Screening Mammogram-Patient reports NO symptoms. /priors available for comparison. RESULT: TECHNIQUE: The study was acquired using full field digital technology and interpreted from soft copy. Current study was also evaluated with a Computer Aided Detection (CAD). Comparison is made to exam dated: 03/25/2022 mammogram - [facility]. There are scattered areas of fibroglandular density. There are benign vascular calcifications in both breasts. No significant masses, calcifications, or other findings are seen in either breast. There has been no significant interval change. IMPRESSION IMPRESSION: BENIGN FINDING There is no mammographic evidence of malignancy. A 1 year screening mammogram is recommended. Apolonia Wilks M.D., mc/augustine:04/04/2023 09:25:02 Abnormal Psychology Teacher(s): RT Iggy(Alicia)(M), [facility] letter sent: Normal over 40 Mammogram BI-RADS: 2 Benign finding Multiple national specialty organizations have released breast cancer screening guidelines for women at average risk for developing breast cancer - guidelines that are based on both evidence and opinion, yet differ on when to start and how often to screen for breast cancer. With representation from Breast Imaging, Internal Medicine, Women's Health, Family Medicine, and Medical/Surgical Oncology, the [facility] has carefully reviewed the data and reached the following consensus: 1) All women should engage in shared decision-making with their providers to decide when to start and how often to screen; 2) All women should have the opportunity to start screening mammography at age 40; 3) For women ages 45-55, we recommend annual screening mammograms; 4) For women ages 55 and over, we support both the transition from an annual to a biennial interval if this aligns more with patient's values and preferences, or continuation with annual screening; 5) All women should discuss with their providers when to stop screening mammograms. Parts Cataloguer: Augustine Transcribe Date/Time: Apr 03 2023 12:41P Dictated by: APOLONIA WILKS MD This examination was interpreted and the report reviewed and electronically signed by: APOLONIA WILKS MD on Apr 04 2023 9:25AM EST [facility] MG Breast ScreeningOrdered B y: [facility] Provider on 04-04-2023 [facility] MG Breast Screeningon 2022 [facility] Basophil percentageOrdered B y: Matti Camarillo on 02-28-2023 Bilirubin [Mass/Vol] 0.50 mg/dL 0.20-1.00 [facility] Comment on above: For patients on eltr ombopag therapy, use of Dimension [place] TBIL is not recommended. Chloride [Moles/Vol] 103 mmol/L 98-107 [facility] Glucose [Mass/Vol] 99 mg/dL 74-106 [facility] Potassium [Moles/Vol] 4.3 mmol/L 3.5-5.1 [facility] Protein [Mass/Vol] 7.5 g/dL 6.4-8.2 [facility] Sodium [Moles/Vol] 138 mmol/L 136-145 [facility] Laboratory - Chemistry and C hemistry - challengeOrdered By: Matti Camarillo on 02-28-2023 ALP [Catalytic activity/Vol] 65 U/L 45-117 [facility] ALT [Catalytic activity/Vol] 27 U/L 13-56 [facility] CO2 [Moles/Vol] 30.0 mmol/L 21.0-32.0 [facility] Globulin (S) [Mass/Vol] 3.7 g/dL 2.2-4.2 [facility] Urea nitrogen/Creatinine [Mass ratio] 17.7 mg/mg 10-20 [facility] No Panel InformationOrdered By: Matti Camarillo on 02-28-2023 Estimated GFR (MDRD) Amer 83 mL/min >60 [facility] Comment on above: GFR Calc Estimated GFR (MDRD) Non-Af Amer 69 mL/min >60 [facility] Comment on above: Non- GFR Calc Thyroid Stimulating Hormone (TSH) 2.64 uIU/mL 0.358-3.74 [facility] Serum or plasma albumin deo urement (mass/volume)Ordered By: Matti Camarillo on 02-28-2023 Albumin [Mass/Vol] 3.8 g/dL 3.2-5.0 [facility] Serum or plasma albumin/glob ulin mass ratioOrdered By: Mattiandrew Camarillo on 02-28-2023 Albumin/Globulin [Mass ratio] 1.0 {ratio} 0.9-2.4 [facility] Serum or plasma calcium deo urement (mass/volume)Ordered By: Matti Camarillo on 02-28-2023 Calcium [Mass/Vol] 9.2 mg/dL 8.5-10.1 [facility] Serum or plasma creatinine m easurement (mass/volume)Ordered By: Matti Camarillo on 02-28-2023 Creatinine [Mass/Vol] 0.85 mg/dL 0.55-1.02 [facility] Comment on above: The validity of the calculated GFR & GFRAA in patients over 70 years has not been determined. Clinical correlation is essential. Serum or plasma urea nitroge n measurement (mass/volume)Ordered By: Matti Camarillo on 02-28-2023 Urea nitrogen [Mass/Vol] 15 mg/dL 7-18 [facility] Thin prep Papanicolaou smear with manual screeningOrdered By: Matti Camarillo on 02-28-2023 Thin prep Papanicolaou smear with manual screening 18 U/L 15-37 [facility] Thin prep Papanicolaou smear with manual screening 5 5-15 [facility] Absolute lymphocyte countOrd ered By: Ileana Beltrán on 12-23-2022 Lymphocytes Auto (Unsp spec) [#/Vol] 3.12 10*3/uL 0.83-4.51 [facility] Basophil percentageOrdered B y: Ileana Beltrán on 12-23-2022 Basophils/100 WBC (Bld) 0.8 % 0-1 [facility] Chloride [Moles/Vol] 105 mmol/L 98-107 [facility] Eosinophils/100 WBC (Bld) 1.7 % 0-5 [facility] Glucose [Mass/Vol] 91 mg/dL 74-106 [facility] Neutrophils (Bld) [#/Vol] 3.9 10*3/uL 2.0-7.7 [facility] Neutrophils/100 WBC (Bld) 49.8 % 47-70 [facility] Potassium [Moles/Vol] 4.6 mmol/L 3.5-5.1 [facility] Sodium [Moles/Vol] 139 mmol/L 136-145 [facility] WBC (Bld) [#/Vol] 7.8 10*3/uL 4.4-11.0 [facility] Blood erythrocytes count (nu mber/volume)Ordered By: Ileana Beltrán on 12-23-2022 RBC (Bld) [#/Vol] 4.55 10*6/uL 4.2-5.4 [facility] Blood hemoglobin measurement (mass/volume)Ordered By: Ileana Beltrán on 12-23-2022 Hemoglobin (Bld) [Mass/Vol] 14.0 g/dL 12.0-15.0 [facility] Blood lymphocytes/100 leukoc ytesOrdered By: Ileana Beltrán on 12-23-2022 Lymphocytes/100 WBC (Bld) 40.1 % 19-41 [facility] Blood monocytes/100 leukocyt esOrdered By: Ileana Beltrán on 12-23-2022 Monocytes/100 WBC (Bld) 7.2 % 0-10 [facility] Blood platelet mean volumeOr dered By: Ileana Beltrán on 12-23-2022 Platelet mean volume (Bld) [Entitic vol] 10.8 fL 6.2-12.0 [facility] Determination of erythrocyte mean corpuscular volume (MCV)Ordered By: Ileana Beltrán on 12-23-2022 MCV (RBC) [Entitic vol] 95.4 fL 81-99 [facility] Hematocrit Auto (Bld) [Volum e fraction]Ordered By: Ileana Beltrán on 12-23-2022 Hematocrit (Bld) [Volume fraction] 43.4 % 37-47 [facility] Laboratory - Chemistry and C hemistry - challengeOrdered By: Ileana Beltrán on 12-23-2022 CO2 [Moles/Vol] 28.0 mmol/L 21.0-32.0 [facility] Urea nitrogen/Creatinine [Mass ratio] 15.6 mg/mg 10-20 [facility] Laboratory - Hematology and Cell countsOrdered By: Ileana Beltrán on 12-23-2022 Erythrocyte distribution width (RBC) [Entitic vol] 45.0 fL 35.1-43.9 [facility] Erythrocyte distribution width (RBC) [Ratio] 12.9 % 11.6-14.6 [facility] Immature granulocytes/100 WBC (Bld) 0.400 % 0.0-0.9 [facility] Comment on above: IG% - Immature Granu locytes (promyelocytes, myelocytes and metamyelocytes) > 1% indicates that a LEFT SHIFT is Present. MCH (RBC) [Entitic mass] 30.8 pg 27.0-32.0 [facility] Nucleated RBC/100 WBC (Bld) [Ratio] 0 % 0-5 [facility] MCHC Auto (RBC) [Mass/Vol]Or dered By: Ileana Beltrán on 12-23-2022 MCHC (RBC) [Mass/Vol] 32.3 g/dL 32-36 [facility] No Panel InformationOrdered By: Ileana Beltrán on 12-23-2022 Estimated GFR (MDRD) Amer 85 mL/min >60 [facility] Comment on above: GFR Calc Estimated GFR (MDRD) Non-Af Amer 70 mL/min >60 [facility] Comment on above: Non- GFR Calc No Panel InformationOrdered By: ELZBIETASHYAM KNOX on 12-23-2022 Thyroid Stimulating Hormone (TSH) 5.94 uIU/mL 0.358-3.74 [facility] Platelets bldOrdered By: Neto niels Leigh Ann on 12-23-2022 Platelets (Bld) [#/Vol] 219 10*3/uL 150-450 [facility] Serum or plasma calcium deo urement (mass/volume)Ordered By: Ileana Beltrán on 12-23-2022 Calcium [Mass/Vol] 9.3 mg/dL 8.5-10.1 [facility] Serum or plasma creatinine m easurement (mass/volume)Ordered By: Ileana Beltrán on 12-23-2022 Creatinine [Mass/Vol] 0.84 mg/dL 0.55-1.02 [facility] Comment on above: The validity of the calculated GFR & GFRAA in patients over 70 years has not been determined. Clinical correlation is essential. Serum or plasma urea nitroge n measurement (mass/volume)Ordered By: Ileana Beltrán on 12-23-2022 Urea nitrogen [Mass/Vol] 13 mg/dL 7-18 [facility] Thin prep Papanicolaou smear with manual screeningOrdered By: Ileana Beltrán on 12-23-2022 Thin prep Papanicolaou smear with manual screening 6 5-15 [facility] Basophil percentageOrdered B y: Ileana Beltrán on 10-30-2022 Bilirubin [Mass/Vol] 0.60 mg/dL 0.20-1.00 [facility] Comment on above: For patients on eltr ombopag therapy, use of Dimension [place] TBIL is not recommended. Chloride [Moles/Vol] 107 mmol/L 98-107 [facility] Cholesterol [Mass/Vol] 176 mg/dL <200 [facility] Comment on above: <200 mg/dL Desirable 200-240 mg/dL Borderline >240 mg/dL High Risk Glucose [Mass/Vol] 96 mg/dL 74-106 [facility] Potassium [Moles/Vol] 4.4 mmol/L 3.5-5.1 [facility] Protein [Mass/Vol] 7.0 g/dL 6.4-8.2 [facility] Sodium [Moles/Vol] 140 mmol/L 136-145 [facility] Triglyceride [Mass/Vol] 186 mg/dL <199 [facility] Comment on above: The drugs N-Acetylcy steine and Metamizole may falsely depress this assay.Serum Triglycerides Reference Interval Normal <150 mg/dL Borderline high 150 - 199 mg/dL High 200 - 499 mg/dL Very High > or = 500 mg/dL WBC (Bld) [#/Vol] 6.2 10*3/uL 4.4-11.0 [facility] Blood erythrocytes count (nu mber/volume)Ordered By: Ileana Beltrán on 10-30-2022 RBC (Bld) [#/Vol] 4.23 10*6/uL 4.2-5.4 [facility] Blood hemoglobin measurement (mass/volume)Ordered By: Ileana Beltrán on 10-30-2022 Hemoglobin (Bld) [Mass/Vol] 13.2 g/dL 12.0-15.0 [facility] Blood platelet mean volumeOr dered By: Ileana Beltrán on 10-30-2022 Platelet mean volume (Bld) [Entitic vol] 10.8 fL 6.2-12.0 [facility] Determination of erythrocyte mean corpuscular volume (MCV)Ordered By: Ileana Beltrán on 10-30-2022 MCV (RBC) [Entitic vol] 95.5 fL 81-99 [facility] Hematocrit Auto (Bld) [Volum e fraction]Ordered By: Ileana Beltrán on 10-30-2022 Hematocrit (Bld) [Volume fraction] 40.4 % 37-47 [facility] Laboratory - Chemistry and C hemistry - challengeOrdered By: Ileana Beltrán on 10-30-2022 ALP [Catalytic activity/Vol] 67 U/L 45-117 [facility] ALT [Catalytic activity/Vol] 29 U/L 13-56 [facility] CO2 [Moles/Vol] 27.0 mmol/L 21.0-32.0 [facility] Globulin (S) [Mass/Vol] 3.6 g/dL 2.2-4.2 [facility] Urea nitrogen/Creatinine [Mass ratio] 10.9 mg/mg 10-20 [facility] Laboratory - Hematology and Cell countsOrdered By: Ileana Beltrán on 10-30-2022 Erythrocyte distribution width (RBC) [Entitic vol] 44.5 fL 35.1-43.9 [facility] Erythrocyte distribution width (RBC) [Ratio] 12.9 % 11.6-14.6 [facility] MCH (RBC) [Entitic mass] 31.2 pg 27.0-32.0 [facility] MCHC Auto (RBC) [Mass/Vol]Or dered By: Ileana Beltrán on 10-30-2022 MCHC (RBC) [Mass/Vol] 32.7 g/dL 32-36 [facility] No Panel InformationOrdered By: Ileana Beltrán on 10-30-2022 Estimated GFR (MDRD) Amer 98 mL/min >60 [facility] Comment on above: GFR Calc Estimated GFR (MDRD) Non-Af Amer 81 mL/min >60 [facility] Comment on above: Non- GFR Calc Thyroid Stimulating Hormone (TSH) 0.14 uIU/mL 0.358-3.74 [facility] Platelets bldOrdered By: Neto Beltrán on 10-30-2022 Platelets (Bld) [#/Vol] 216 10*3/uL 150-450 [facility] Serum or plasma albumin deo urement (mass/volume)Ordered By: Ileana Beltrán on 10-30-2022 Albumin [Mass/Vol] 3.4 g/dL 3.2-5.0 [facility] Serum or plasma albumin/glob ulin mass ratioOrdered By: Ileana Beltrán on 10-30-2022 Albumin/Globulin [Mass ratio] 0.9 {ratio} 0.9-2.4 [facility] Serum or plasma calcium deo urement (mass/volume)Ordered By: Ileana Beltrán on 10-30-2022 Calcium [Mass/Vol] 8.9 mg/dL 8.5-10.1 [facility] Serum or plasma cholesterol in HDL measurement (mass/volume)Ordered By: Ileana Beltrán on 10-30-2022 Cholesterol in HDL [Mass/Vol] 46 mg/dL >40 [facility] Comment on above: The drugs N-Acetylcy steine and Metamizole may falsely depress this assay. Reference Range HDL <40 mg/dL Low HDL Cholesterol HDL >or= 60 mg/dL High HDL Cholesterol Serum or plasma cholesterol in VLDL measurement (mass/volume)Ordered By: Ileana Beltrán on 10-30-2022 Cholesterol in VLDL [Mass/Vol] 37 mg/dL 5-40 [facility] Serum or plasma creatinine m easurement (mass/volume)Ordered By: Ileana Beltrán on 10-30-2022 Creatinine [Mass/Vol] 0.74 mg/dL 0.55-1.02 [facility] Comment on above: The validity of the calculated GFR & GFRAA in patients over 70 years has not been determined. Clinical correlation is essential. Serum or plasma low density lipoprotein (LDL) cholesterol measurement (mass/volume)Ordered By: Ileana Beltrán on 10-30-2022 Cholesterol in LDL [Mass/Vol] 93 mg/dL 0-130 [facility] Serum or plasma urea nitroge n measurement (mass/volume)Ordered By: Ileana Beltrán on 10-30-2022 Urea nitrogen [Mass/Vol] 8 mg/dL 7-18 [facility] Thin prep Papanicolaou smear with manual screeningOrdered By: Ileana Beltrán on 10-30-2022 Thin prep Papanicolaou smear with manual screening 20 U/L 15-37 [facility] Thin prep Papanicolaou smear with manual screening 6 5-15 [facility] Basophil percentageOrdered B y: ELZBIETA ABILIO on 04-24-2022 Bilirubin [Mass/Vol] 0.50 mg/dL 0.20-1.00 [facility] Comment on above: For patients on eltr ombopag therapy, use of Dimension [place] TBIL is not recommended. Chloride [Moles/Vol] 105 mmol/L 98-107 [facility] Cholesterol [Mass/Vol] 223 mg/dL <200 [facility] Comment on above: <200 mg/dL Desirable 200-240 mg/dL Borderline >240 mg/dL High Risk Glucose [Mass/Vol] 97 mg/dL 74-106 [facility] Potassium [Moles/Vol] 3.9 mmol/L 3.5-5.1 [facility] Protein [Mass/Vol] 7.4 g/dL 6.4-8.2 [facility] Sodium [Moles/Vol] 140 mmol/L 136-145 [facility] Triglyceride [Mass/Vol] 240 mg/dL <199 [facility] Comment on above: The drugs N-Acetylcy steine and Metamizole may falsely depress this assay.Serum Triglycerides Reference Interval Normal <150 mg/dL Borderline high 150 - 199 mg/dL High 200 - 499 mg/dL Very High > or = 500 mg/dL Laboratory - Chemistry and C hemistry - challengeOrdered By: ELZBIETA KNOX on 04-24-2022 ALP [Catalytic activity/Vol] 70 U/L 45-117 [facility] ALT [Catalytic activity/Vol] 31 U/L 13-56 [facility] CO2 [Moles/Vol] 26.0 mmol/L 21.0-32.0 [facility] Globulin (S) [Mass/Vol] 3.7 g/dL 2.2-4.2 [facility] Urea nitrogen/Creatinine [Mass ratio] 15.7 mg/mg 10-20 [facility] No Panel InformationOrdered By: ELZBIETA KNOX on 04-24-2022 Estimated GFR (MDRD) Amer 116 mL/min >60 [facility] Comment on above: GFR Calc Estimated GFR (MDRD) Non-Af Amer 96 mL/min >60 [facility] Comment on above: Non- GFR Calc Thyroid Stimulating Hormone (TSH) 0.50 uIU/mL 0.358-3.74 [facility] Vitamin D 25-Hydroxy 58.6 ng/mL [facility] Comment on above: Vitamin D 25(OH) Sta tus Range Deficiency <20 ng/mL (50nmol/L) Insufficiency 20 - 30 ng/mL (50 - 75 nmol/L) Sufficiency 30 - 100 ng/mL (75 - 250 nmol/L) Toxicity >100 ng/mL (>250 nmol/L) Serum or plasma albumin deo urement (mass/volume)Ordered By: ELZBIETA KNOX on 04-24-2022 Albumin [Mass/Vol] 3.7 g/dL 3.2-5.0 [facility] Serum or plasma albumin/glob ulin mass ratioOrdered By: ELZBIETA KNOX on 04-24-2022 Albumin/Globulin [Mass ratio] 1.0 {ratio} 0.9-2.4 [facility] Serum or plasma calcium deo urement (mass/volume)Ordered By: ELZBIETA KNOX on 04-24-2022 Calcium [Mass/Vol] 9.0 mg/dL 8.5-10.1 [facility] Serum or plasma cholesterol in HDL measurement (mass/volume)Ordered By: ELZBIETA KNOX on 04-24-2022 Cholesterol in HDL [Mass/Vol] 50 mg/dL >40 [facility] Comment on above: The drugs N-Acetylcy steine and Metamizole may falsely depress this assay. Reference Range HDL <40 mg/dL Low HDL Cholesterol HDL >or= 60 mg/dL High HDL Cholesterol Serum or plasma cholesterol in VLDL measurement (mass/volume)Ordered By: ELZBIETA KNOX on 04-24-2022 Cholesterol in VLDL [Mass/Vol] 48 mg/dL 5-40 [facility] Serum or plasma creatinine m easurement (mass/volume)Ordered By: ELZBIETA KNOX on 04-24-2022 Creatinine [Mass/Vol] 0.64 mg/dL 0.55-1.02 [facility] Comment on above: The validity of the calculated GFR & GFRAA in patients over 70 years has not been determined. Clinical correlation is essential. Serum or plasma low density lipoprotein (LDL) cholesterol measurement (mass/volume)Ordered By: ELZBIETA KNOX on 04-24-2022 Cholesterol in LDL [Mass/Vol] 125 mg/dL 0-130 [facility] Serum or plasma urea nitroge n measurement (mass/volume)Ordered By: ELZBIETA KNOX on 04-24-2022 Urea nitrogen [Mass/Vol] 10 mg/dL 7-18 [facility] Thin prep Papanicolaou smear with manual screeningOrdered By: ELZBIETA KNOX on 04-24-2022 Thin prep Papanicolaou smear with manual screening 20 U/L 15-37 [facility] Thin prep Papanicolaou smear with manual screening 9 5-15 [facility] Absolute lymphocyte countOrd ered By: Dr. Díaz on 04-22-2022 Lymphocytes Auto (Unsp spec) [#/Vol] 2.46 10*3/uL 0.83-4.51 [facility] Basophil percentageOrdered B y: Dr. Díaz on 04-22-2022 Basophils/100 WBC (Bld) 0.6 % 0-1 [facility] Eosinophils/100 WBC (Bld) 1.0 % 0-5 [facility] Neutrophils (Bld) [#/Vol] 4.9 10*3/uL 2.0-7.7 [facility] Neutrophils/100 WBC (Bld) 61.2 % 47-70 [facility] WBC (Bld) [#/Vol] 8.1 10*3/uL 4.4-11.0 [facility] Blood erythrocytes count (nu mber/volume)Ordered By: Dr. Díaz on 04-22-2022 RBC (Bld) [#/Vol] 4.86 10*6/uL 4.2-5.4 [facility] Blood hemoglobin measurement (mass/volume)Ordered By: Dr. Díaz on 04-22-2022 Hemoglobin (Bld) [Mass/Vol] 14.0 g/dL 12.0-15.0 [facility] Blood lymphocytes/100 leukoc ytesOrdered By: Dr. Díaz on 04-22-2022 Lymphocytes/100 WBC (Bld) 30.4 % 19-41 [facility] Blood monocytes/100 leukocyt esOrdered By: Dr. Díaz on 04-22-2022 Monocytes/100 WBC (Bld) 6.6 % 0-10 [facility] Blood platelet mean volumeOr dered By: Dr. Díaz on 04-22-2022 Platelet mean volume (Bld) [Entitic vol] 11.6 fL 6.2-12.0 [facility] Determination of erythrocyte mean corpuscular volume (MCV)Ordered By: Dr. Díaz on 04-22-2022 MCV (RBC) [Entitic vol] 88.7 fL 81-99 [facility] Hematocrit Auto (Bld) [Volum e fraction]Ordered By: Dr. Díaz on 04-22-2022 Hematocrit (Bld) [Volume fraction] 43.1 % 37-47 [facility] Iron measurement (mass/mass) Ordered By: Dr. Díaz on 04-22-2022 Iron (Unsp spec) [Mass/Mass] 82 ug/dL 50-170 [facility] - Hematology and Cell countsOrdered By: Dr. Díaz on 04-22-2022 Erythrocyte distribution width (RBC) [Entitic vol] 52.8 fL 35.1-43.9 [facility] Erythrocyte distribution width (RBC) [Ratio] 16.1 % 11.6-14.6 [facility] Immature granulocytes/100 WBC (Bld) 0.200 % 0.0-0.9 [facility] Comment on above: IG% - Immature Granu locytes (promyelocytes, myelocytes and metamyelocytes) > 1% indicates that a LEFT SHIFT is Present. MCH (RBC) [Entitic mass] 28.8 pg 27.0-32.0 [facility] Nucleated RBC/100 WBC (Bld) [Ratio] 0 % 0-5 [facility] MCHC Auto (RBC) [Mass/Vol]Or dered By: Dr. Díaz on 04-22-2022 MCHC (RBC) [Mass/Vol] 32.5 g/dL 32-36 [facility] Platelets bldOrdered By: Dr. Díaz on 04-22-2022 Platelets (Bld) [#/Vol] 265 10*3/uL 150-450 [facility] Serum or plasma ferritin olivia surement (mass/volume)Ordered By: Dr. Díaz on 04-22-2022 Ferritin [Mass/Vol] 28 ng/mL 8-252 [facility] CNOVon 03-27-2022 CNOV Office Visit (UROLAE) FABRICE MOON ([id number]) 1945 F T Date Time Provider Department 03/27/22 2:15 PM ROXANE PINEDA During your visit today, we recorded the following information about you: Blood pressure Weight Height 118/78 86.2 kg 1.702 m Roxane Pineda MD 03/27/2022 2:23 PM Signed ESTABLISHED PATIENT VISIT HPI Fabrice Moon is a 76 year old female who presents The has tried Trospium, Tolterodine and oxybutynin. She has a reaction to each drug. Continues to have moderate urgency and urge incontinence. We discussed third line therapies including Botox and InterStim therapy. She would like to try 1 more medication before moving onto third line therapies. I did provide her with a prescription for Vesicare 10 mg today. She is going to follow-up with Dr. Christensen. GLUCOSE UA (POCT) Negative 12/26/2021 BILIRUBIN UA (POCT) Negative 12/26/2021 KETONE UA (POCT) Negative 12/26/2021 SPECIFIC GRAVITY UA (POCT) 1.010 12/26/2021 HEMOGLOBIN/BLOOD UA (POCT) Moderate 12/26/2021 PH UA (POCT) 5.5 12/26/2021 PROTEIN UA (POCT) Negative 12/26/2021 UROBILINOGEN UA (POCT) 0.2 12/26/2021 NITRITE UA (POCT) Negative 12/26/2021 LEUKOCYTES UA (POCT) Small 12/26/2021 COLOR UA (POCT) Yellow 12/26/2021 CLARITY UA (POCT) Clear 12/26/2021 REVIEW OF SYSTEMS GENERAL:No weight loss, malaise or fevers., SEE HPI GENITOURINARY: See HPI CONSTITUTIONALl: No recent fever or weight loss ALLERGIES Allergen Reactions Amitriptyline Rash Elavil [Amitriptyli* Intolerance Has taken with no reaction Naproxyn [Naproxen] Oxybutynin Swelling Tolterodine Other: See Comments Facial swelling and itching Valdecoxib Rash 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 asymptomatic currently PMH - PAST MEDICAL HISTORY OF hiatal hernia PMH - PAST MEDICAL HISTORY OF mild aortic stenosis Unspecified hypothyroidism many years FAMILY HISTORY Problem Relation Age of Onset Cancer Father lung, that went to brain Cancer Mother kidney Diabetes Maternal Aunt Diabetes Maternal Uncle Coronary Artery Disease Paternal Uncle multiple in 50's Prostate Cancer Brother No Known Problems Brother No Known Problems Brother Diabetes Maternal Grandmother Diabetes Maternal Grandfather Cancer Paternal Grandmother No Known Problems Paternal Grandfather Social History Tobacco Use Smoking status: Never Smokeless tobacco: Never Vaping Use Vaping Use: Never used Substance Use Topics Alcohol use: Yes Comment: Socially Drug use: No MEDICATIONS: gabapentin (NEURONTIN) 600 mg tablet FERROUS SULFATE ORAL Take by mouth. cholecalciferol, vitamin D3, (VITAMIN D3 ORAL) Take by mouth. Lactobacillus acidophilus (PROBIOTIC) 10 billion cell cap Take by mouth. amLODIPine (NORVASC) 5 mg tablet Take 5 mg by mouth once daily. coenzyme Q10 (COENZYME Q-10) 100 mg cap capsule Take 100 mg by mouth twice daily. metoprolol tartrate 25 mg ORAL tablet Take 0.5 tablets by mouth twice daily. (Patient taking differently: Take 25 mg by mouth twice daily. Pt takes 1 tablet twice daily) Levothyroxine 100 mcg ORAL Cap Take 125 mcg by mouth once daily. aspirin, enteric coated (ASPIRIN, ENTERIC COATED) 81 mg EC tablet Take 1 tablet by mouth once daily. diphenoxylate-atropi ne (LOMOTIL) 2.5-0.025 mg per tablet Take by mouth. 4 times a day as needed. Trospium (SANCTURA SR) 60 mg cp24 Take 1 capsule by mouth once daily. (Patient not taking: Reported on 03/27/2022) Trospium (SANCTURA SR) 60 mg cp24 Take 1 capsule by mouth once daily. (Patient not taking: Reported on 03/27/2022) CPAP as directed. For sleep apnea started 10/09/2004 OTC PRODUCT Vitamin D 5000units per day B.ani-L.aci-L.dayne-L. plan-L.Van 10 billion cell (2 billion ea) cap Take by mouth. Physical Exam BP 118/78 Ht 170.2 cm (5' 7) Wt 86.2 kg (190 lb) BMI 29.76 kg/m? ASSESSMENT/PLAN: (N39.41) Urge incontinence (primary encounter diagnosis) Referring Provider: MICAH DÍAZ [[id number]] Allergies As of Date: 03/27/2022 Noted Allergy Reaction AMITRIPTYLINE 07/22/2003 2 - Rash ELAVIL (AMITRIPTYLINE HCL) 01/28/2006 5 - Intolerance Comments: Has taken with no reaction NAPROXYN (NAPROXEN) 12/13/2005 OXYBUTYNIN 07/24/2021 7 - Swelling TOLTERODINE 03/27/2022 14 - Other: See Comments Comments: Facial swelling and itching VALDECOXIB 07/22/2003 2 - Rash Date Reviewed: 03/27/2022 Reviewed by: Roxane Pineda MD - Fully Assessed Primary Visit Diagnosis:Urge incontinence [N39.41] Order(s):so (more content not included)... Normal [facility] KAJAL SCREENINGon 03-25-2022 [facility] CNPNon 02-07-2022 CNPN Telephone (AKURFL) FABRICE MOON ([id number]) 1945 F T Date Time Provider Department 02/07/22 ROXAEN PINEDA During your visit today, we recorded the following information about you: Yesenia Herrera [facility] 02/07/2022 8:27 AM Signed Patient states she has tried the Trospium for 30 days. Per patient medication has not helped her bladder spasms. Patient previously has tried Detrol and Myrbetriq but medication caused itching, and redness to her face. Patient inquiring if she should continue medication? Stop medication til follow up ? Alternative medication? Patient RB follow up is 03/27/22. Patient decline MAXIMINO appointment due to living in [place], and has no transportation Yesenia Pineda MD 02/07/2022 11:20 AM Signed Would she like to do a virtual visit with Elzbieta to discuss next steps? Shayy Hadley [facility] 02/07/2022 11:26 AM Signed Pt does not have a email or computer offered an in person denied it will wait till March f/u Allergies As of Date: 02/07/2022 Noted Allergy Reaction AMITRIPTYLINE 07/22/2003 2 - Rash ELAVIL (AMITRIPTYLINE HCL) 01/28/2006 5 - Intolerance Comments: Has taken with no reaction NAPROXYN (NAPROXEN) 12/13/2005 OXYBUTYNIN 07/24/2021 7 - Swelling TRAMADOL 12/13/2005 VALDECOXIB 07/22/2003 2 - Rash Date Reviewed: 12/26/2021 Reviewed by: Citlali Phelan, CT - Fully Assessed Reason for Visit: Medication Problem [65] Prescriptions as of 02/07/2022 - Trospium (SANCTURA SR) 60 mg cp24 Take 1 capsule by mouth once daily. - Trospium (SANCTURA SR) 60 mg cp24 Take 1 capsule by mouth once daily. - tolterodine ER (DETROL LA) 4 mg 24 hr capsule Take 1 capsule by mouth once daily. - CPAP as directed. For sleep apnea started 10/09/2004 - rOPINIRole (REQUIP) 0.25 mg tablet Take 0.25 mg by mouth as directed. 1 hour prior to bedtime - cholecalciferol, vitamin D3, (VITAMIN D3 ORAL) Take by mouth. - Lactobacillus acidophilus (PROBIOTIC) 10 billion cell cap Take by mouth. - amLODIPine (NORVASC) 5 mg tablet Take 5 mg by mouth once daily. - pantoprazole DR (PROTONIX) 40 mg tablet Pantoprazole Sodium Active 40 MG DAILY May 26, 2018 9:59am - amitriptyline (ELAVIL) 10 mg tablet Take 10 mg by mouth daily at bedtime. - GABAPENTIN ORAL Take by mouth. - coenzyme Q10 (COENZYME Q-10) 100 mg cap capsule Take 100 mg by mouth twice daily. - POLYPODIUM LEUCOTOMOS EXTRACT (HELIOCARE ORAL) Take by mouth. - benzonatate 100 mg capsule Take 1 capsule by mouth three times daily as needed for Cough. Swallow whole please. - metoprolol tartrate 25 mg ORAL tablet Take 0.5 tablets by mouth twice daily. - acetaminophen-hydroc odone 5-500 mg ORAL tablet Take 1-2 tablets by mouth every 6 hours as needed. (do not exceed 4000mg of acetaminophen/tyleno l in any 24 hour period) - Levothyroxine 100 mcg ORAL Cap Take 125 mcg by mouth once daily. - aspirin, enteric coated (ASPIRIN, ENTERIC COATED) 81 mg EC tablet Take 1 tablet by mouth once daily. - OTC PRODUCT Vitamin D 5000units per day - B.ani-L.aci-L.dayne-L. plan-L.Van 10 billion cell (2 billion ea) cap Take by mouth. - diphenoxylate-atropi ne (LOMOTIL) 2.5-0.025 mg per tablet Take by mouth. 4 times a day as needed. 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] 07/27/2003 ABDOMINAL PAIN EPIGASTRIC [R10.13] ACUTE GASTRITIS W/O HEMORRHAGE [K29.00] Pre-op testing [Z01.818] 10/22/2010 10/24/2010 10/23/10: AVR #23 CE [V999.95] 10/23/2010 Hypertension [I10] 10/23/2010 Pain following surgery or procedure [G89.18] 10/23/2010 Hypotension [I95.9] 10/24/2010 Anxiety [F41.9] 10/24/2010 Thrombocytopenia (HCC) [D69.6] 10/25/2010 10/27/2010 Sinus tachycardia [R00.0] 10/28/2010 Vaginal enterocele [N81.5] 12/29/2020 Status post aortic valve replacement [Z95.2] 12/10/2021 Obesity (BMI 30.0-34.9) [E66.9] 12/10/2021 Encounter Status:Closed by ROXANE PINEDA on 02/07/22 [facility] Absolute lymphocyte countOrd ered By: Dr. Díaz on 01-18-2022 Lymphocytes Auto (Unsp spec) [#/Vol] 2.13 10*3/uL 0.83-4.51 [facility] Basophil percentageOrdered B y: Dr. Díaz on 01-18-2022 Basophils/100 WBC (Bld) 0.6 % 0-1 [facility] Eosinophils/100 WBC (Bld) 2.6 % 0-5 [facility] Neutrophils (Bld) [#/Vol] 3.3 10*3/uL 2.0-7.7 [facility] Neutrophils/100 WBC (Bld) 53.9 % 47-70 [facility] WBC (Bld) [#/Vol] 6.2 10*3/uL 4.4-11.0 [facility] Blood erythrocytes count (nu mber/volume)Ordered By: Dr. Díaz on 01-18-2022 RBC (Bld) [#/Vol] 3.93 10*6/uL 4.2-5.4 [facility] Blood hemoglobin measurement (mass/volume)Ordered By: Dr. Díaz on 01-18-2022 Hemoglobin (Bld) [Mass/Vol] 10.5 g/dL 12.0-15.0 [facility] Blood lymphocytes/100 leukoc ytesOrdered By: Dr. Díaz on 01-18-2022 Lymphocytes/100 WBC (Bld) 34.5 % 19-41 [facility] Blood monocytes/100 leukocyt esOrdered By: Dr. Díaz on 01-18-2022 Monocytes/100 WBC (Bld) 8.1 % 0-10 [facility] Blood platelet mean volumeOr dered By: Dr. Díaz on 01-18-2022 Platelet mean volume (Bld) [Entitic vol] 11.3 fL 6.2-12.0 [facility] Determination of erythrocyte mean corpuscular volume (MCV)Ordered By: Dr. Díaz on 01-18-2022 MCV (RBC) [Entitic vol] 85.2 fL 81-99 [facility] Hematocrit Auto (Bld) [Volum e fraction]Ordered By: Dr. Díaz on 01-18-2022 Hematocrit (Bld) [Volume fraction] 33.5 % 37-47 [facility] Iron measurement (mass/mass) Ordered By: Dr. Díaz on 01-18-2022 Iron (Unsp spec) [Mass/Mass] 37 ug/dL 50-170 [facility] Laboratory - Hematology and Cell countsOrdered By: Dr. Díaz on 01-18-2022 Erythrocyte distribution width (RBC) [Entitic vol] 46.8 fL 35.1-43.9 [facility] Erythrocyte distribution width (RBC) [Ratio] 14.9 % 11.6-14.6 [facility] Immature granulocytes/100 WBC (Bld) 0.300 % 0.0-0.9 [facility] Comment on above: IG% - Immature Granu locytes (promyelocytes, myelocytes and metamyelocytes) > 1% indicates that a LEFT SHIFT is Present. MCH (RBC) [Entitic mass] 26.7 pg 27.0-32.0 [facility] Nucleated RBC/100 WBC (Bld) [Ratio] 0 % 0-5 [facility] MCHC Auto (RBC) [Mass/Vol]Or dered By: Dr. Díaz on 01-18-2022 MCHC (RBC) [Mass/Vol] 31.3 g/dL 32-36 [facility] No Panel InformationOrdered By: Dr. Díaz on 01-18-2022 Total Iron Binding Capacity 555 ug/dL 250-450 [facility] Platelets bldOrdered By: Dr. Díaz on 01-18-2022 Platelets (Bld) [#/Vol] 289 10*3/uL 150-450 [facility] Serum or plasma ferritin olivia surement (mass/volume)Ordered By: Dr. Díaz on 01-18-2022 Ferritin [Mass/Vol] 9 ng/mL 8-252 [facility] Serum or plasma folate measu rement (mass/volume)Ordered By: Dr. Díaz on 01-18-2022 Folate [Mass/Vol] 21.70 ng/mL 3.1-55.4 [facility] Serum or plasma iron saturat ion measurement (mass fraction)Ordered By: Dr. Díaz on 01-18-2022 Iron saturation [Mass fraction] 6.7 % 15.0-55.0 [facility] CNPNon 01-07-2022 CNPN Telephone ([employer]) FABRICE MOON ([id number]) 1945 F CHT Date Time Provider Department 01/07/22 ROXANE PINEDA During your visit today, we recorded the following information about you: Ashleigh Borja [employer] 01/07/2022 4:10 PM Signed Pt called asking if we could resend the Trospium 60mg rx to her pharmacy I tried calling but the phone number wasn't working re pendedt he rx. Ashleigh Borja [employer] Allergies As of Date: 01/07/2022 Noted Allergy Reaction AMITRIPTYLINE 07/22/2003 2 - Rash ELAVIL (AMITRIPTYLINE HCL) 01/28/2006 5 - Intolerance Comments: Has taken with no reaction NAPROXYN (NAPROXEN) 12/13/2005 OXYBUTYNIN 07/24/2021 7 - Swelling TRAMADOL 12/13/2005 VALDECOXIB 07/22/2003 2 - Rash Date Reviewed: 12/26/2021 Reviewed by: Citlali Phelan CT - Fully Assessed Reason for Visit: resending rx [Other] Order(s):Trospium (SANCTURA SR) 60 mg [id number] 1 capsule by mouth once daily.Disp: 30 capsuleRfl: 3 Prescriptions as of 01/09/2022 - Trospium (SANCTURA SR) 60 mg cp24 Take 1 capsule by mouth once daily. - Trospium (SANCTURA SR) 60 mg cp24 Take 1 capsule by mouth once daily. - tolterodine ER (DETROL LA) 4 mg 24 hr capsule Take 1 capsule by mouth once daily. - CPAP as directed. For sleep apnea started 10/09/2004 - rOPINIRole (REQUIP) 0.25 mg tablet Take 0.25 mg by mouth as directed. 1 hour prior to bedtime - cholecalciferol, vitamin D3, (VITAMIN D3 ORAL) Take by mouth. - Lactobacillus acidophilus (PROBIOTIC) 10 billion cell cap Take by mouth. - amLODIPine (NORVASC) 5 mg tablet Take 5 mg by mouth once daily. - pantoprazole DR (PROTONIX) 40 mg tablet Pantoprazole Sodium Active 40 MG DAILY May 26, 2018 9:59am - amitriptyline (ELAVIL) 10 mg tablet Take 10 mg by mouth daily at bedtime. - GABAPENTIN ORAL Take by mouth. - coenzyme Q10 (COENZYME Q-10) 100 mg cap capsule Take 100 mg by mouth twice daily. - POLYPODIUM LEUCOTOMOS EXTRACT (HELIOCARE ORAL) Take by mouth. - benzonatate 100 mg capsule Take 1 capsule by mouth three times daily as needed for Cough. Swallow whole please. - metoprolol tartrate 25 mg ORAL tablet Take 0.5 tablets by mouth twice daily. - acetaminophen-hydroc odone 5-500 mg ORAL tablet Take 1-2 tablets by mouth every 6 hours as needed. (do not exceed 4000mg of acetaminophen/tyleno l in any 24 hour period) - Levothyroxine 100 mcg ORAL Cap Take 125 mcg by mouth once daily. - aspirin, enteric coated (ASPIRIN, ENTERIC COATED) 81 mg EC tablet Take 1 tablet by mouth once daily. - OTC PRODUCT Vitamin D 5000units per day - B.ani-L.aci-L.dayne-L. plan-L.Van 10 billion cell (2 billion ea) cap Take by mouth. - diphenoxylate-atropi ne (LOMOTIL) 2.5-0.025 mg per tablet Take by mouth. 4 times a day as needed. 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] 07/27/2003 ABDOMINAL PAIN EPIGASTRIC [R10.13] ACUTE GASTRITIS W/O HEMORRHAGE [K29.00] Pre-op testing [Z01.818] 10/22/2010 10/24/2010 10/23/10: AVR #23 CE [V999.95] 10/23/2010 Hypertension [I10] 10/23/2010 Pain following surgery or procedure [G89.18] 10/23/2010 Hypotension [I95.9] 10/24/2010 Anxiety [F41.9] 10/24/2010 Thrombocytopenia (HCC) [D69.6] 10/25/2010 10/27/2010 Sinus tachycardia [R00.0] 10/28/2010 Vaginal enterocele [N81.5] 12/29/2020 Status post aortic valve replacement [Z95.2] 12/10/2021 Obesity (BMI 30.0-34.9) [E66.9] 12/10/2021 Prescriptions ordered this encounter Disp Refills Start End TROSPIUM ER 60 MG CAPSULE,EXTENDED R* 30 c* 3 01/08/2022 Route: ORAL Sig: Take 1 capsule by mouth once daily. Encounter Status:Closed by ASHLEIGH BORJA CMA on 01/09/22 [facility] Katty 01-01-2022 CNPN Telephone (AKURFL) FABRICE MOON ([id number]) 1945 F [facility] Date Time Provider Department 01/01/22 ROXANE PINEDA During your visit today, we recorded the following information about you: Sveta Quintero 01/01/2022 3:27 PM Signed Fabrice Moon called today. She was wondering about being started on sanctura medication? She discussed with you at last appointment on 12/26. GUERITA Alvarez MD 01/02/2022 12:08 PM Signed Rx sent to pharmacy Gricelda Olivia RN 01/02/2022 12:23 PM Signed Patient informed that prescription called to her pharmacy. Gricelda Herrera Cma 01/02/2022 1:18 PM Signed Patient states Trospium cost $145 at local pharmacy which is to expensive. Patient advised me, you previously check with [facility] for her on a previous medication? Patient requesting RX if you believe it would be more affordable through [facility]. Medication pending if you see fit. Thank you, Yesenia Herrera Cma 01/02/2022 1:19 PM Signed Addended by: YESENIA HERRERA CMA on: 01/02/2022 01:19 PM Modules accepted: Orders Roxane Pineda MD 01/02/2022 1:39 PM Signed Sent to pharmacy Roxane Pineda MD 01/02/2022 1:39 PM Signed Addended by: ROXANE PINEDA on: 01/02/2022 01:39 PM Modules accepted: Orders Allergies As of Date: 01/01/2022 Noted Allergy Reaction AMITRIPTYLINE 07/22/2003 2 - Rash ELAVIL (AMITRIPTYLINE HCL) 01/28/2006 5 - Intolerance Comments: Has taken with no reaction NAPROXYN (NAPROXEN) 12/13/2005 OXYBUTYNIN 07/24/2021 7 - Swelling TRAMADOL 12/13/2005 VALDECOXIB 07/22/2003 2 - Rash Date Reviewed: 12/26/2021 Reviewed by: Citlali Phelan, CT - Fully Assessed Reason for Visit: Medication Problem [65] Primary Visit Diagnosis:Urgency of urination [R39.15] Order(s):Trospium (SANCTURA SR) 60 mg [id number] 1 capsule by mouth once daily.Disp: 30 capsuleRfl: 11 Prescriptions as of 01/02/2022 - Trospium (SANCTURA SR) 60 mg cp24 Take 1 capsule by mouth once daily. - tolterodine ER (DETROL LA) 4 mg 24 hr capsule Take 1 capsule by mouth once daily. - CPAP as directed. For sleep apnea started 10/09/2004 - rOPINIRole (REQUIP) 0.25 mg tablet Take 0.25 mg by mouth as directed. 1 hour prior to bedtime - cholecalciferol, vitamin D3, (VITAMIN D3 ORAL) Take by mouth. - Lactobacillus acidophilus (PROBIOTIC) 10 billion cell cap Take by mouth. - amLODIPine (NORVASC) 5 mg tablet Take 5 mg by mouth once daily. - pantoprazole DR (PROTONIX) 40 mg tablet Pantoprazole Sodium Active 40 MG DAILY May 26, 2018 9:59am - amitriptyline (ELAVIL) 10 mg tablet Take 10 mg by mouth daily at bedtime. - GABAPENTIN ORAL Take by mouth. - coenzyme Q10 (COENZYME Q-10) 100 mg cap capsule Take 100 mg by mouth twice daily. - POLYPODIUM LEUCOTOMOS EXTRACT (HELIOCARE ORAL) Take by mouth. - benzonatate 100 mg capsule Take 1 capsule by mouth three times daily as needed for Cough. Swallow whole please. - metoprolol tartrate 25 mg ORAL tablet Take 0.5 tablets by mouth twice daily. - acetaminophen-hydroc odone 5-500 mg ORAL tablet Take 1-2 tablets by mouth every 6 hours as needed. (do not exceed 4000mg of acetaminophen/tyleno l in any 24 hour period) - Levothyroxine 100 mcg ORAL Cap Take 125 mcg by mouth once daily. - aspirin, enteric coated (ASPIRIN, ENTERIC COATED) 81 mg EC tablet Take 1 tablet by mouth once daily. - OTC PRODUCT Vitamin D 5000units per day - B.ani-L.aci-L.dayne-L. plan-L.Van 10 billion cell (2 billion ea) cap Take by mouth. - diphenoxylate-atropi ne (LOMOTIL) 2.5-0.025 mg per tablet Take by mouth. 4 times a day as needed. 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] 07/27/2003 ABDOMINAL PAIN EPIGASTRIC [R10.13] ACUTE GASTRITIS W/O HEMORRHAGE [K29.00] Pre-op testing [Z01.818] 10/22/2010 10/24/2010 10/23/10: AVR #23 CE [V999.95] 10/23/2010 Hypertension [I10] 10/23/2010 Pain following surgery or procedure [G89.18] 10/23/2010 Hypotension [I95.9] 10/24/2010 Anxiety [F41.9] 10/24/2010 Thrombocytopenia (HCC) [D69.6] 10/25/2010 10/27/2010 Sinus tachycardia [R00.0] 10/28/2010 Vaginal enterocele [N81.5] 12/29/2020 Status post aortic valve replacement [Z95.2] 12/10/2021 Obesity (BMI 30.0-34.9) [E66.9] 12/10/2021 Prescriptions ordered this encounter Disp Refills Start End TROSPIUM ER 60 MG CAPSULE,EXTENDED R* 30 c* 11 01/02/2022 01/02/2022 Route: ORAL Sig: Take 1 capsule by mouth once daily. TROSPIUM ER 60 MG CAPSULE,EXTENDED R* 30 c* 11 01/02/2022 12/28/2022 Route: ORAL Sig: Take 1 capsule by mouth once daily. Medications Discontinued During This (more content not included)... Normal [facility] CNOVon 12-26-2021 CNOV Office Visit (UROLAE) FABRICE MOON ([id number]) 1945 F T Date Time Provider Department 12/26/21 3:00 PM ROXANE PINEDA During your visit today, we recorded the following information about you: Blood pressure Weight Height 140/80 90.3 kg 1.702 m Roxane Pineda MD 12/26/2021 3:43 PM Signed ESTABLISHED PATIENT VISIT HPI Fabrice Rodriguez Jamal is a 76 year old female who presents post colpopexy and mid urethral sling. She is doing well. She is voiding without difficulty. Her postvoid residual is 0. Incisions are intact and healing. Her vault is well supported. She continues to have significant urgency. The symptoms were present preoperatively. She has tried Myrbetriq and Detrol in the past. We will try Sanctura. Follow-up in 2 to 3 months. GLUCOSE UA (POCT) Negative 09/26/2021 BILIRUBIN UA (POCT) Negative 09/26/2021 KETONE UA (POCT) Negative 09/26/2021 SPECIFIC GRAVITY UA (POCT) 1.015 09/26/2021 HEMOGLOBIN/BLOOD UA (POCT) Small 09/26/2021 PH UA (POCT) 5.5 09/26/2021 PROTEIN UA (POCT) Negative 09/26/2021 UROBILINOGEN UA (POCT) 0.2 09/26/2021 NITRITE UA (POCT) Negative 09/26/2021 LEUKOCYTES UA (POCT) Small 09/26/2021 COLOR UA (POCT) Yellow 09/26/2021 CLARITY UA (POCT) Clear 09/26/2021 REVIEW OF SYSTEMS GENERAL:No weight loss, malaise or fevers, No weight loss, malaise or fevers., SEE HPI GENITOURINARY: See HPI CONSTITUTIONALl: No recent fever or weight loss ALLERGIES Allergen Reactions Amitriptyline Rash Elavil [Amitriptyli* Intolerance Has taken with no reaction Naproxyn [Naproxen] Oxybutynin Swelling Tramadol Valdecoxib Rash 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 asymptomatic currently PMH - PAST MEDICAL HISTORY OF hiatal hernia PMH - PAST MEDICAL HISTORY OF mild aortic stenosis Unspecified hypothyroidism many years FAMILY HISTORY Problem Relation Age of Onset Cancer Father lung, that went to brain Cancer Mother kidney Diabetes Maternal Aunt Diabetes Maternal Uncle Coronary Artery Disease Paternal Uncle multiple in 50's Prostate Cancer Brother No Known Problems Brother No Known Problems Brother Diabetes Maternal Grandmother Diabetes Maternal Grandfather Cancer Paternal Grandmother No Known Problems Paternal Grandfather Social History Tobacco Use Smoking status: Never Smokeless tobacco: Never Vaping Use Vaping Use: Never used Substance Use Topics Alcohol use: Yes Comment: Socially Drug use: No MEDICATIONS: tolterodine ER (DETROL LA) 4 mg 24 hr capsule Take 1 capsule by mouth once daily. CPAP as directed. For sleep apnea started 10/09/2004 rOPINIRole (REQUIP) 0.25 mg tablet Take 0.25 mg by mouth as directed. 1 hour prior to bedtime cholecalciferol, vitamin D3, (VITAMIN D3 ORAL) Take by mouth. Lactobacillus acidophilus (PROBIOTIC) 10 billion cell cap Take by mouth. amLODIPine (NORVASC) 5 mg tablet Take 5 mg by mouth once daily. pantoprazole DR (PROTONIX) 40 mg tablet Pantoprazole Sodium Active 40 MG DAILY May 26, 2018 9:59am amitriptyline (ELAVIL) 10 mg tablet Take 10 mg by mouth daily at bedtime. (Patient not taking: Reported on 07/24/2021 ) GABAPENTIN ORAL Take by mouth. (Patient not taking: Reported on 07/24/2021 ) coenzyme Q10 (COENZYME Q-10) 100 mg cap capsule Take 100 mg by mouth twice daily. POLYPODIUM LEUCOTOMOS EXTRACT (HELIOCARE ORAL) Take by mouth. (Patient not taking: Reported on 12/29/2020 ) benzonatate 100 mg capsule Take 1 capsule by mouth three times daily as needed for Cough. Swallow whole please. (Patient not taking: Reported on 12/29/2020 ) metoprolol tartrate 25 mg ORAL tablet Take 0.5 tablets by mouth twice daily. (Patient taking differently: Take 25 mg by mouth twice daily. Pt takes 1 tablet twice daily) acetaminophen-hydroc odone 5-500 mg ORAL tablet Take 1-2 tablets by mouth every 6 hours as needed. (do not exceed 4000mg of acetaminophen/tyleno l in any 24 hour period) (Patient not taking: Reported on 12/29/2020) Levothyroxine 100 mcg ORAL Cap Take 125 mcg by mouth once daily. aspirin, enteric coated (ASPIRIN, ENTERIC COATED) 81 mg EC tablet Take 1 tablet by mouth once daily. OTC PRODUCT Vitamin D 5000units per day B.ani-L.aci-L.dayne-L. plan-L.Van 10 billion cell (2 billion ea) cap Take by mouth. diphenoxylate-atropi ne (LOMOTIL) 2.5-0.025 mg per tablet Take by mouth. 4 times a day as needed. Physical Exam There were no vitals taken for this visit. ASSESSMENT/PLAN: (R39.15) Urgency of urination (primary encounte (more content not included)... Normal [facility] CNPKeturah 12-18-2021 CNPN Telephone ([facility]) FABRICE MOON ([id number]) 1945 F T Date Time Provider Department 12/18/21 ROXANE PINEDA During your visit today, we recorded the following information about you: Austin Dsouzaisidro Olivares 12/18/2021 9:12 AM Signed Patient called stating that her discharge papers state that she should consult her doctor on when she is able to drive again. She states that she is off pain meds at this point, she is having frequency and slight discomfort in the area but other dinh is feeling better. She would like to know if she can drive to the store or bank at this point? Can you advise? Austin Pineda MD 12/18/2021 9:27 AM Signed She can drive Austin Mitchell Ma 12/18/2021 9:30 AM Signed Patient informed. Austin Mitchell Ma Allergies As of Date: 12/18/2021 Noted Allergy Reaction AMITRIPTYLINE 07/22/2003 2 - Rash ELAVIL (AMITRIPTYLINE HCL) 01/28/2006 5 - Intolerance Comments: Has taken with no reaction NAPROXYN (NAPROXEN) 12/13/2005 OXYBUTYNIN 07/24/2021 7 - Swelling TRAMADOL 12/13/2005 VALDECOXIB 07/22/2003 2 - Rash Date Reviewed: 12/10/2021 Reviewed by: Yuliet Limon RN - Fully Assessed Reason for Visit: Patient Question [5782] Prescriptions as of 12/18/2021 - tolterodine ER (DETROL LA) 4 mg 24 hr capsule Take 1 capsule by mouth once daily. - CPAP as directed. For sleep apnea started 10/09/2004 - rOPINIRole (REQUIP) 0.25 mg tablet Take 0.25 mg by mouth as directed. 1 hour prior to bedtime - cholecalciferol, vitamin D3, (VITAMIN D3 ORAL) Take by mouth. - Lactobacillus acidophilus (PROBIOTIC) 10 billion cell cap Take by mouth. - amLODIPine (NORVASC) 5 mg tablet Take 5 mg by mouth once daily. - pantoprazole DR (PROTONIX) 40 mg tablet Pantoprazole Sodium Active 40 MG DAILY May 26, 2018 9:59am - amitriptyline (ELAVIL) 10 mg tablet Take 10 mg by mouth daily at bedtime. - GABAPENTIN ORAL Take by mouth. - coenzyme Q10 (COENZYME Q-10) 100 mg cap capsule Take 100 mg by mouth twice daily. - POLYPODIUM LEUCOTOMOS EXTRACT (HELIOCARE ORAL) Take by mouth. - benzonatate 100 mg capsule Take 1 capsule by mouth three times daily as needed for Cough. Swallow whole please. - metoprolol tartrate 25 mg ORAL tablet Take 0.5 tablets by mouth twice daily. - acetaminophen-hydroc odone 5-500 mg ORAL tablet Take 1-2 tablets by mouth every 6 hours as needed. (do not exceed 4000mg of acetaminophen/tyleno l in any 24 hour period) - Levothyroxine 100 mcg ORAL Cap Take 125 mcg by mouth once daily. - aspirin, enteric coated (ASPIRIN, ENTERIC COATED) 81 mg EC tablet Take 1 tablet by mouth once daily. - OTC PRODUCT Vitamin D 5000units per day - B.ani-L.aci-L.dayne-L. plan-L.Van 10 billion cell (2 billion ea) cap Take by mouth. - diphenoxylate-atropi ne (LOMOTIL) 2.5-0.025 mg per tablet Take by mouth. 4 times a day as needed. 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] 07/27/2003 ABDOMINAL PAIN EPIGASTRIC [R10.13] ACUTE GASTRITIS W/O HEMORRHAGE [K29.00] Pre-op testing [Z01.818] 10/22/2010 10/24/2010 10/23/10: AVR #23 CE [V999.95] 10/23/2010 Hypertension [I10] 10/23/2010 Pain following surgery or procedure [G89.18] 10/23/2010 Hypotension [I95.9] 10/24/2010 Anxiety [F41.9] 10/24/2010 Thrombocytopenia (HCC) [D69.6] 10/25/2010 10/27/2010 Sinus tachycardia [R00.0] 10/28/2010 Vaginal enterocele [N81.5] 12/29/2020 Status post aortic valve replacement [Z95.2] 12/10/2021 Obesity (BMI 30.0-34.9) [E66.9] 12/10/2021 Encounter Status:Closed by AUSTIN MITCHELL MA on 12/18/21 [facility] ALLIED HEALTHon 12-10-2021 ALLIED HEALTH HNO ID: [id number] Author: Chaplain Deborah Service: Spiritual Care Author Type: Vice President Of Talent Management Type: Allied Health Filed: 12/10/2021 11:27 AM Note Text: SPIRITUAL CARE PROGRESS NOTE SERVICE DATE: 12/10/2021 SERVICE TIME: 9:04am Vice President Of Talent Management supported patient and niece before surgery; patient expressed anxiety and plug stitcher normalized feelings. Vice President Of Talent Management also prayed and they were very grateful for support To contact the Spiritual Care Department: Please call . SIGNATURE: Chaplain Deborah PATIENT NAME: Fabrice Moon DATE: December 10, 2021 TIME: 11:26 AM PAGER/CONTACT #: [phone] [facility] ANES POSTPROC EVALon 022 ANES POSTPROC EVAL HNO ID: [id number] Author: Edwar Dumas MD Service: Anesthesiology Author Type: Physician Type: Anesthesia Postprocedure Evaluation Filed: 12/10/2021 9:44 PM Note Text: POST ANESTHESIA EVALUATION NOTE : 1945 Procedure Summary Date: 12/10/21 Room / Location: [facility] OR 04 / [place] OR Anesthesia Start: 1407 Anesthesia Stop: 1812 Procedures: XI ROBOTIC LAPAROSCOPIC COLPOPEXY (Abdomen) POSTERIOR COLPORRHAPHY W/ REPAIR RECTOCELE AND PERINEORRHAPHY (Vagina ) SLING SURGERY FOR STRESS INCONTINENCE W/ TENSION FREE VAG TAPE (Bladder) CYSTOSCOPY (Bladder) Diagnosis: Prolapse of vaginal vault after hysterectomy Stress incontinence Rectocele Stress incontinence, female Surgeons: Roxane Pineda MD Responsible Provider: Edwar Dumas MD Anesthesia Type: general ASA Status: 2 Anesthesia Type: general Airway Type: ETT Last Vitals Vitals Value Taken Time BP 135/60 12/10/211999 Temp 12/10/21 2144 HR SpO2 65 12/10/212014 Resp 17 12/10/212014 SpO2 96 % 12/10/212014 Post Anesthesia Patient Status Patient Evaluation: bedside. Anticipated Disposition: phase 2 then home. Neurological Status: aware and responsive. Pulmonary Status: breathing comfortably on room air Airway Control: returned to baseline unsupported. Cardiovascular Status: stable. Pain Management: clinically adequate Postoperative Hydration: acceptable. Intraoperative Events: no significant anesthesia events Post Operative Nausea/Vomiting Status: no significant post operative nausea or vomiting Anesthetic Observations: Recommendation: continue current plan of care. Anesthesia Observations No Documentation SIGNATURE: Edwar Dumas MD PATIENT NAME: Fabrice Moon DATE: December 10, 2021 TIME: 9:44 PM CSN: [id number] [facility] ANES PRE-OPon 12-10-2021 ANES PRE-OP HNO ID: [id number] Author: Hector Copeland MD Service: ? Author Type: Anesthesiologist Type: Anesthesia Preprocedure Evaluation Filed: 12/10/2021 11:45 AM Note Text: ANESTHESIOLOGY DAY OF SURGERY NOTE : 1945 Procedure Information Date/Time: 12/10/21 1200 Procedures: XI ROBOTIC LAPAROSCOPIC COLPOPEXY (Abdomen) POSTERIOR COLPORRHAPHY W/ REPAIR RECTOCELE AND PERINEORRHAPHY (Vagina ) SLING SURGERY FOR STRESS INCONTINENCE W/ TENSION FREE VAG TAPE (Bladder) CYSTOSCOPY (Bladder) Location: PA OR / [facility] OR Surgeons: Roxane Pineda MD Estimated body mass index is 30.38 kg/m? as calculated from the following: Height as of 09/26/21: 170.2 cm (5' 7). Weight as of 09/26/21: 88 kg (194 lb). 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 Mets > 5. Denies exertional chest pain, dyspnea, lightheadedness. Follows routinely with [facility] in [place]. No major changes since AVR in 2010. I - PHYSICAL EVALUATION AIRWAY Patient intubated: No. Tracheostomy tube not present Mallampati: II. TM distance: >3 FB. Neck ROM: full ROM without neurological symptoms. Mouth opening: adequate. Short neck: no. Thick neck: no DENTAL Dental findings: teeth intact. Additional exam findings: no II - ANESTHESIA PLAN ASA Score: 2 Anesthetic Plan: general Airway type: ETT The patient is not a current smoker. NPO Status: adequate Beta Daniel Administration of chronic beta daniel medication planned. Monitoring plan: standard ASA. Postoperative analgesic plan: parenteral or oral opioids. Informed Consent Anesthetic risks, benefits, alternatives, personnel and consent discussed: yes. Patient / Responsible Republican agrees to proceed: yes Patient / Surrogate agrees to blood products: Yes Significant changes in the patient condition since the History and Physical, not otherwise documented in primary service progress note: no. Potential Anesthesia issues that may suggest increased risk of complications or contraindication to planned procedure: none. Vitals Value Taken Time BP 147/68 12/10/21 1034 Pulse 52 12/10/21 1034 Resp 16 12/10/21 1034 Temp 35.8 ?C (96.4 ?F) 12/10/21 1034 SpO2 98 % 12/10/21 1034 Facility-Administere d Medications as of 12/10/2021 Medication Dose Route Frequency - lidocaine 10 mg/mL (1 %) 1-2 mg injection (XYLOCAINE) 0.1-0.2 mL INTRADERMAL PRN - lactated ringers iv infusion 5-30 mL/hr INTRAVENOUS CONTINUOUS - [COMPLETED] acetaminophen 975 mg tab(s) (TYLENOL) 975 mg ORAL Pre-Op Once - ceFAZolin iv piggyback 2 g in D5W (iso-osmotic) 100 mL (ANCEF) 2 g INTRAVENOUS q 8 H Outpatient Medications as of 12/10/2021 Medication Sig - rOPINIRole (REQUIP) 0.25 mg tablet Take 0.25 mg by mouth as directed. 1 hour prior to bedtime - amLODIPine (NORVASC) 5 mg tablet Take 5 mg by mouth once daily. - metoprolol tartrate 25 mg ORAL tablet Take 0.5 tablets by mouth twice daily. (Patient taking differently: Take 25 mg by mouth twice daily. Pt takes 1 tablet twice daily) - Levothyroxine 100 mcg ORAL Cap Take 125 mcg by mouth once daily. - diphenoxylate-atropi ne (LOMOTIL) 2.5-0.025 mg per tablet Take by mouth. 4 times a day as needed. - tolterodine ER (DETROL LA) 4 mg 24 hr capsule Take 1 capsule by mouth once daily. - CPAP as directed. For sleep apnea started 10/09/2004 - cholecalciferol, vitamin D3, (VITAMIN D3 ORAL) Take by mouth. - Lactobacillus acidophilus (PROBIOTIC) 10 billion cell cap Take by mouth. - pantoprazole DR (PROTONIX) 40 mg tablet Pantoprazole Sodium Active 40 MG DAILY May 26, 2018 9:59am - amitriptyline (ELAVIL) 10 mg tablet Take 10 mg by mouth daily at bedtime. (Patient not taking: Reported on 07/24/2021 ) - GABAPENTIN ORAL Take by mouth. (Patient not taking: Reported on 07/24/2021 ) - coenzyme Q10 (COENZYME Q-10) 100 mg cap capsule Take 100 mg by mouth twice daily. - POLYPODIUM LEUCOTOMOS EXTRACT (HELIOCARE ORAL) Take by mouth. (Patient not taking: Reported on 12/29/2020 ) - benzonatate 100 mg capsule Take 1 capsule by mouth three times daily as needed for Cough. Swallow whole please. (Patient not taking: Reported on 12/29/2020 ) - acetaminophen-hydroc odone 5-500 mg ORAL tablet Take 1-2 tablets by mouth every 6 hours as needed. (do not exceed 4000mg of acetaminophen/tyleno l in any 24 hour period) (Patient not taking: Reported on 12/29/2020) - aspirin, enteric coated (ASPIRIN, ENTERIC COATED) 81 mg EC tablet Take 1 tablet by mouth once daily. - OTC PRODUCT Vitamin D 5000units per day - B.ani-L.aci-L.dayne-L. plan-L.Van 10 billion cell (2 billion ea) cap Take by mouth. I have interview (more content not included)... Normal [facility] HISTORY PHYSICALon HISTORY PHYSICAL HNO ID: [id number] Author: Roxane Pineda MD Service: Urology Author Type: Physician Type: Operative Report Filed: 12/10/2021 6:33 PM Note Text: UROLOGY SERVICE OPERATIVE NOTE LOG ID: [id number] Surgery/Procedure Date: 12/10/2021 Incision/Procedure Start Time: 2:46 PM Incision Close/Procedure End Time: 6:01 PM Patient Age: [age] year old Surgeon(s)/Procedura list(s) and Engraver Ornamental Design(s): Surgeon(s) and Role: * Roxane Pineda MD - Primary * Siva Sutton MD - Resident - Assisting Early Childhood Special Educator: Manolo Alegre SA Early Childhood Special Educator (Relief): Jamal Santizo SA Anesthesia: General Preop Diagnosis: Pre-Op Diagnosis Codes: * 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 Conservative and surgical options were discussed and we decided to proceed with surgical correction. We reviewed correction with and without mesh material. It was decided to proceed with a colpopexy and a mid urethral sling. Risk benefits alternatives to surgery were discussed including conservative and surgical options. She decided she wanted to proceed with surgical correction. Risk and benefits were discussed including infection, bleeding, possible need for repeat procedures, persistent urinary incontinence and the use of mesh and possible injury to bowel or bladder. Patient had no posterior compartment complaints. The FDA data regarding use of mesh was discussed with the patient and she is comfortable with proceeding. Procedure Patient was taken to the operating room placed under general anesthesia in the dorsolithotomy position prepped and draped in normal sterile fashion. Her SCDs were on and functioning. A timeout was performed. The Roth catheter was placed gloves were changed attention was turned to the abdomen. A supraumbilical incision was made after the injection of Marcaine. The Veress needle was passed aspirated and a water drop test was performed and was normal. Insufflation was started pressures were low in the abdomen was from fully insufflated. Once insufflated the robotic 8 mm trocar was passed and the camera was placed. There is no evidence of any bleeding or injury. The remainder of the ports were placed under direct vision 1 in the right 2 on the left and the left upper quadrant air seal port. Small amount of adhesions were taken down the bladder was identified as was the right ureter and the sacral promontory. The EEA sizer was placed vaginally and the vaginal cuff was identified anterior and posterior flaps were developed off of the cuff the Filemon vertessa light mesh was cut the length on the Y side and attached both anteriorly and posteriorly with interrupted 2-0 Ethibond. The 30 degree camera was placed the sacral promontory was identified as was the right ureter. The posterior peritoneum overlying the sacral promontory was opened the anterior longitudinal ligament was identified as was the vascular structures. 2 sutures of 0 Ethibond were placed into the ligament. Posterior peritoneum was further opened and the posterior aspect the peritoneum was attached to the posterior flap with interrupted 2-0 Vicryl. The cervix then brought up to location to provide support without overcorrection and the mesh was attached with the previously placed Ethibond sutures. The mesh was trimmed and the posterior peritoneum and flaps were closed over the mesh in its entirety with 2-0 Vicryl. The potential internal space on the right side was large and therefore not closed. There is no evidence of ureteral vascular or bowel injury. The robot was undocked. All ports were removed. All skin incisions were closed with 4-0 Vicryl. Skin glue was applied. Attention was turned vaginally. 1% lidocaine with epinephrine injected in the suprapubic region anterior vaginal wall. Midline vaginal incision was made lateral dissection was performed 2 small suprapubic incisions were made and the Filemon needles were passed. Cystoscopy was performed there is no evidence of tumor calculus mucosal abnormality or bladder injury both ureteral orifices were visualized and effluxing indigo stained urine.. The mesh was attached to the trochars and profanities urethra regular clamp was used as a spacer and plastic protective sheaths were then removed. The mesh was brought up to sit underneath urethra to provide support without overcorrection and a right angle clamp easily passed between the urethra and the mesh. It was closed wi (more content not included)... Normal [facility] NURSING PROGon 12-10-2021 NURSING PROG HNO ID: [id number] Author: Ileana Sanchez RN Service: Nursing Author Type: Registered Nurse Type: Nursing Progress Note Filed: 12/10/2021 9:40 PM Note Text: 2100 - Instilled 200cc into bladder, ambulated to bathroom. Voided 100cc blood tinged urine. Back to bed, bladder scanned for approximately 120cc. Paged and informed Petra (uro resident); pt ok to go home. Normal [facility] OPERATIVE NOon 12-10-2021 OPERATIVE NO HNO ID: [id number] Author: Roxane Pineda MD Service: Urology Author Type: Physician Type: Operative Report Filed: 12/10/2021 6:33 PM Note Text: UROLOGY SERVICE OPERATIVE NOTE LOG ID: [id number] Surgery/Procedure Date: 12/10/2021 Incision/Procedure Start Time: 2:46 PM Incision Close/Procedure End Time: 6:01 PM Patient Age: [age] year old Surgeon(s)/Procedura list(s) and Engraver Ornamental Design(s): Surgeon(s) and Role: * Roxane Pineda MD - Primary * Siva Sutton MD - Resident - Assisting Early Childhood Special Educator: Manolo Alegre SA Early Childhood Special Educator (Relief): Jamal MedelRuddy Santizo SA Anesthesia: General Preop Diagnosis: Pre-Op Diagnosis Codes: * 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 Conservative and surgical options were discussed and we decided to proceed with surgical correction. We reviewed correction with and without mesh material. It was decided to proceed with a colpopexy and a mid urethral sling. Risk benefits alternatives to surgery were discussed including conservative and surgical options. She decided she wanted to proceed with surgical correction. Risk and benefits were discussed including infection, bleeding, possible need for repeat procedures, persistent urinary incontinence and the use of mesh and possible injury to bowel or bladder. Patient had no posterior compartment complaints. The FDA data regarding use of mesh was discussed with the patient and she is comfortable with proceeding. Procedure Patient was taken to the operating room placed under general anesthesia in the dorsolithotomy position prepped and draped in normal sterile fashion. Her SCDs were on and functioning. A timeout was performed. The Roth catheter was placed gloves were changed attention was turned to the abdomen. A supraumbilical incision was made after the injection of Marcaine. The Veress needle was passed aspirated and a water drop test was performed and was normal. Insufflation was started pressures were low in the abdomen was from fully insufflated. Once insufflated the robotic 8 mm trocar was passed and the camera was placed. There is no evidence of any bleeding or injury. The remainder of the ports were placed under direct vision 1 in the right 2 on the left and the left upper quadrant air seal port. Small amount of adhesions were taken down the bladder was identified as was the right ureter and the sacral promontory. The EEA sizer was placed vaginally and the vaginal cuff was identified anterior and posterior flaps were developed off of the cuff the Filemon vertessa light mesh was cut the length on the Y side and attached both anteriorly and posteriorly with interrupted 2-0 Ethibond. The 30 degree camera was placed the sacral promontory was identified as was the right ureter. The posterior peritoneum overlying the sacral promontory was opened the anterior longitudinal ligament was identified as was the vascular structures. 2 sutures of 0 Ethibond were placed into the ligament. Posterior peritoneum was further opened and the posterior aspect the peritoneum was attached to the posterior flap with interrupted 2-0 Vicryl. The cervix then brought up to location to provide support without overcorrection and the mesh was attached with the previously placed Ethibond sutures. The mesh was trimmed and the posterior peritoneum and flaps were closed over the mesh in its entirety with 2-0 Vicryl. The potential internal space on the right side was large and therefore not closed. There is no evidence of ureteral vascular or bowel injury. The robot was undocked. All ports were removed. All skin incisions were closed with 4-0 Vicryl. Skin glue was applied. Attention was turned vaginally. 1% lidocaine with epinephrine injected in the suprapubic region anterior vaginal wall. Midline vaginal incision was made lateral dissection was performed 2 small suprapubic incisions were made and the Filemon needles were passed. Cystoscopy was performed there is no evidence of tumor calculus mucosal abnormality or bladder injury both ureteral orifices were visualized and effluxing indigo stained urine.. The mesh was attached to the trochars and profanities urethra regular clamp was used as a spacer and plastic protective sheaths were then removed. The mesh was brought up to sit underneath urethra to provide support without overcorrection and a right angle clamp easily passed between the urethra and the mesh. It was closed wi (more content not included)... [facility] Tele[facility] (UROLAE) FABRICE MOON ([id number]) 1945 F CHT Date Time Provider Department 11/13/21 ROXANE PINEDA During your visit today, we recorded the following information about you: Roz Chand MA 11/13/2021 9:26 AM Signed Patient called into office to report that she is having a bad reaction to the Detrol, and wanted to know if she can stop taking it or does she needs to ween off of it. She is experiencing very dry, swollen redness of the eyes, dry throat for hours after taking the medication. Please Advise BALBIR Cazares MD 11/13/2021 9:30 AM Signed Yes that is fine Austin Mitchell Ma 11/13/2021 9:45 AM Signed Patient informed. Austin Mitchell Ma Allergies As of Date: 11/13/2021 Noted Allergy Reaction AMITRIPTYLINE 07/22/2003 2 - Rash ELAVIL (AMITRIPTYLINE HCL) 01/28/2006 5 - Intolerance Comments: Has taken with no reaction NAPROXYN (NAPROXEN) 12/13/2005 OXYBUTYNIN 07/24/2021 7 - Swelling TRAMADOL 12/13/2005 VALDECOXIB 07/22/2003 2 - Rash Date Reviewed: 09/26/2021 Reviewed by: Roxane Pineda MD - Fully Assessed Reason for Visit: Medication Problem [65] Prescriptions as of 11/13/2021 - tolterodine ER (DETROL LA) 4 mg 24 hr capsule Take 1 capsule by mouth once daily. - CPAP as directed. For sleep apnea started 10/09/2004 - rOPINIRole (REQUIP) 0.25 mg tablet Take 0.25 mg by mouth as directed. 1 hour prior to bedtime - cholecalciferol, vitamin D3, (VITAMIN D3 ORAL) Take by mouth. - Lactobacillus acidophilus (PROBIOTIC) 10 billion cell cap Take by mouth. - amLODIPine (NORVASC) 5 mg tablet Take 5 mg by mouth once daily. - pantoprazole DR (PROTONIX) 40 mg tablet Pantoprazole Sodium Active 40 MG DAILY May 26, 2018 9:59am - amitriptyline (ELAVIL) 10 mg tablet Take 10 mg by mouth daily at bedtime. - GABAPENTIN ORAL Take by mouth. - coenzyme Q10 (COENZYME Q-10) 100 mg cap capsule Take 100 mg by mouth twice daily. - POLYPODIUM LEUCOTOMOS EXTRACT (HELIOCARE ORAL) Take by mouth. - benzonatate 100 mg capsule Take 1 capsule by mouth three times daily as needed for Cough. Swallow whole please. - metoprolol tartrate 25 mg ORAL tablet Take 0.5 tablets by mouth twice daily. - acetaminophen-hydroc odone 5-500 mg ORAL tablet Take 1-2 tablets by mouth every 6 hours as needed. (do not exceed 4000mg of acetaminophen/tyleno l in any 24 hour period) - Levothyroxine 100 mcg ORAL Cap Take 125 mcg by mouth once daily. - aspirin, enteric coated (ASPIR-LOW) 81 mg ORAL EC tablet Take 1 tablet by mouth once daily. - OTC PRODUCT Vitamin D 5000units per day - B.ani-L.aci-L.dayne-L. plan-L.Van (PROBIOTIC FORMULA) 10 billion cell (2 billion ea) ORAL Cap Take by mouth. - diphenoxylate-atropi ne (LOMOTIL) 2.5-0.025 mg ORAL per tablet Take by mouth. 4 times a day as needed. Meds Comments as of 10/22/2010: Vitamins LD 10/16 Problem List As Of Date 11/13/2021 Noted Resolved HYPOTHYROIDISM [E03.9] 07/22/2003 HYPERLIPIDEMIA NEC/NOS [E78.5] 07/22/2003 MYALGIA AND MYOSITIS NOS [[id number]] 07/22/2003 LUMBOSACRAL NEURITIS NOS [[id number]] 07/27/2003 POSTLAMINECT SYND-LUMBAR [M96.1] 07/27/2003 ABDOMINAL PAIN EPIGASTRIC [R10.13] ACUTE GASTRITIS W/O HEMORRHAGE [K29.00] Pre-op testing [Z01.818] 10/22/2010 10/24/2010 10/23/10: AVR #23 CE [V999.95] 10/23/2010 HTN (hypertension) [I10] 10/23/2010 10/24/2010 Pain following surgery or procedure [G89.18] 10/23/2010 Hypotension [I95.9] 10/24/2010 Anxiety [F41.9] 10/24/2010 Thrombocytopenia (HCC) [D69.6] 10/25/2010 10/27/2010 Sinus tachycardia [R00.0] 10/28/2010 Vaginal enterocele [N81.5] 12/29/2020 Encounter Status:Closed by ROXANE PINEDA on 11/13/21 [facility] 11-12-2021 [place] Telephone (JENNIFERLAE) FABRICE MOON ([id number]) 1945 F T Date Time Provider Department 11/12/21 ROXANE PINEDA During your visit today, we recorded the following information about you: Malgorzata Pérez 11/12/2021 12:00 PM Signed Hello Patient called, she is having ralscp on 12/10. She is going tmrw to pain doctor for a injection in her back. She wants to know your opinion if you think that it would be OK. She doesn't want it to effect her surgery being done. I did advise her to let them know also that she is scheduled for surgery. Injection to be done 11/13/21 Thank you, Malgorzata Pineda MD 11/12/2021 12:05 PM Signed The injection should be fine Thank you Allergies As of Date: 11/12/2021 Noted Allergy Reaction AMITRIPTYLINE 07/22/2003 2 - Rash ELAVIL (AMITRIPTYLINE HCL) 01/28/2006 5 - Intolerance Comments: Has taken with no reaction NAPROXYN (NAPROXEN) 12/13/2005 OXYBUTYNIN 07/24/2021 7 - Swelling TRAMADOL 12/13/2005 VALDECOXIB 07/22/2003 2 - Rash Date Reviewed: 09/26/2021 Reviewed by: Roxane Pineda MD - Fully Assessed Reason for Visit: Surgery Question [Other] Prescriptions as of 11/12/2021 - tolterodine ER (DETROL LA) 4 mg 24 hr capsule Take 1 capsule by mouth once daily. - CPAP as directed. For sleep apnea started 10/09/2004 - rOPINIRole (REQUIP) 0.25 mg tablet Take 0.25 mg by mouth as directed. 1 hour prior to bedtime - cholecalciferol, vitamin D3, (VITAMIN D3 ORAL) Take by mouth. - Lactobacillus acidophilus (PROBIOTIC) 10 billion cell cap Take by mouth. - amLODIPine (NORVASC) 5 mg tablet Take 5 mg by mouth once daily. - pantoprazole DR (PROTONIX) 40 mg tablet Pantoprazole Sodium Active 40 MG DAILY May 26, 2018 9:59am - amitriptyline (ELAVIL) 10 mg tablet Take 10 mg by mouth daily at bedtime. - GABAPENTIN ORAL Take by mouth. - coenzyme Q10 (COENZYME Q-10) 100 mg cap capsule Take 100 mg by mouth twice daily. - POLYPODIUM LEUCOTOMOS EXTRACT (HELIOCARE ORAL) Take by mouth. - benzonatate 100 mg capsule Take 1 capsule by mouth three times daily as needed for Cough. Swallow whole please. - metoprolol tartrate 25 mg ORAL tablet Take 0.5 tablets by mouth twice daily. - acetaminophen-hydroc odone 5-500 mg ORAL tablet Take 1-2 tablets by mouth every 6 hours as needed. (do not exceed 4000mg of acetaminophen/tyleno l in any 24 hour period) - Levothyroxine 100 mcg ORAL Cap Take 125 mcg by mouth once daily. - aspirin, enteric coated (ASPIR-LOW) 81 mg ORAL EC tablet Take 1 tablet by mouth once daily. - OTC PRODUCT Vitamin D 5000units per day - B.ani-L.aci-L.dayne-L. plan-L.Van (PROBIOTIC FORMULA) 10 billion cell (2 billion ea) ORAL Cap Take by mouth. - diphenoxylate-atropi ne (LOMOTIL) 2.5-0.025 mg ORAL per tablet Take by mouth. 4 times a day as needed. Meds Comments as of 10/22/2010: Vitamins LD 10/16 Problem List As Of Date 11/12/2021 Noted Resolved HYPOTHYROIDISM [E03.9] 07/22/2003 HYPERLIPIDEMIA NEC/NOS [E78.5] 07/22/2003 MYALGIA AND MYOSITIS NOS [[id number]] 07/22/2003 LUMBOSACRAL NEURITIS NOS [[id number]] 07/27/2003 POSTLAMINECT SYND-LUMBAR [M96.1] 07/27/2003 ABDOMINAL PAIN EPIGASTRIC [R10.13] ACUTE GASTRITIS W/O HEMORRHAGE [K29.00] Pre-op testing [Z01.818] 10/22/2010 10/24/2010 10/23/10: AVR #23 CE [V999.95] 10/23/2010 HTN (hypertension) [I10] 10/23/2010 10/24/2010 Pain following surgery or procedure [G89.18] 10/23/2010 Hypotension [I95.9] 10/24/2010 Anxiety [F41.9] 10/24/2010 Thrombocytopenia (HCC) [D69.6] 10/25/2010 10/27/2010 Sinus tachycardia [R00.0] 10/28/2010 Vaginal enterocele [N81.5] 12/29/2020 Encounter Status:Closed by ROXANE PINEDA on 11/12/21 [facility] CNCOon 10-16-2021 CNCO Letter Text [facility] CNPNon 09-27-2021 CNPN Telephone (AKURFL) FABRICE MOON ([id number]) 1945 F T Date Time Provider Department 09/27/21 ROXANE PINEDA During your visit today, we recorded the following information about you: Natty Marcial Repairer V[employer]er Sheet 09/27/2021 10:30 AM Signed Patient healthcare facility administrator called stated the script for tolterodine that [facility], Erin stated that Patients account information was needed to help with the script, I have advised healthcare facility administrator that the script was called in already, Account [facility], id # [id number] Natty Marcial Repairer V[employer]er Sheet Allergies As of Date: 09/27/2021 Noted Allergy Reaction AMITRIPTYLINE 07/22/2003 2 - Rash ELAVIL (AMITRIPTYLINE HCL) 01/28/2006 5 - Intolerance Comments: Has taken with no reaction NAPROXYN (NAPROXEN) 12/13/2005 OXYBUTYNIN 07/24/2021 7 - Swelling TRAMADOL 12/13/2005 VALDECOXIB 07/22/2003 2 - Rash Date Reviewed: 09/26/2021 Reviewed by: Roxane Pineda MD - Fully Assessed Reason for Visit: FYI-No Action Needed [265] Prescriptions as of 09/27/2021 - tolterodine ER (DETROL LA) 4 mg 24 hr capsule Take 1 capsule by mouth once daily. - CPAP as directed. For sleep apnea started 10/09/2004 - rOPINIRole (REQUIP) 0.25 mg tablet Take 0.25 mg by mouth as directed. 1 hour prior to bedtime - cholecalciferol, vitamin D3, (VITAMIN D3 ORAL) Take by mouth. - Lactobacillus acidophilus (PROBIOTIC) 10 billion cell cap Take by mouth. - amLODIPine (NORVASC) 5 mg tablet Take 5 mg by mouth once daily. - pantoprazole DR (PROTONIX) 40 mg tablet Pantoprazole Sodium Active 40 MG DAILY May 26, 2018 9:59am - amitriptyline (ELAVIL) 10 mg tablet Take 10 mg by mouth daily at bedtime. - GABAPENTIN ORAL Take by mouth. - coenzyme Q10 (COENZYME Q-10) 100 mg cap capsule Take 100 mg by mouth twice daily. - POLYPODIUM LEUCOTOMOS EXTRACT (HELIOCARE ORAL) Take by mouth. - benzonatate 100 mg capsule Take 1 capsule by mouth three times daily as needed for Cough. Swallow whole please. - metoprolol tartrate 25 mg ORAL tablet Take 0.5 tablets by mouth twice daily. - acetaminophen-hydroc odone 5-500 mg ORAL tablet Take 1-2 tablets by mouth every 6 hours as needed. (do not exceed 4000mg of acetaminophen/tyleno l in any 24 hour period) - Levothyroxine 100 mcg ORAL Cap Take 125 mcg by mouth once daily. - aspirin, enteric coated (ASPIR-LOW) 81 mg ORAL EC tablet Take 1 tablet by mouth once daily. - OTC PRODUCT Vitamin D 5000units per day - B.ani-L.aci-L.dayne-L. plan-L.Van (PROBIOTIC FORMULA) 10 billion cell (2 billion ea) ORAL Cap Take by mouth. - diphenoxylate-atropi ne (LOMOTIL) 2.5-0.025 mg ORAL per tablet Take by mouth. 4 times a day as needed. Meds Comments as of 10/22/2010: Vitamins LD 10/16 Problem List As Of Date 09/27/2021 Noted Resolved HYPOTHYROIDISM [E03.9] 07/22/2003 HYPERLIPIDEMIA NEC/NOS [E78.5] 07/22/2003 MYALGIA AND MYOSITIS NOS [[id number]] 07/22/2003 LUMBOSACRAL NEURITIS NOS [[id number]] 07/27/2003 POSTLAMINECT SYND-LUMBAR [M96.1] 07/27/2003 ABDOMINAL PAIN EPIGASTRIC [R10.13] ACUTE GASTRITIS W/O HEMORRHAGE [K29.00] Pre-op testing [Z01.818] 10/22/2010 10/24/2010 10/23/10: AVR #23 CE [V999.95] 10/23/2010 HTN (hypertension) [I10] 10/23/2010 10/24/2010 Pain following surgery or procedure [G89.18] 10/23/2010 Hypotension [I95.9] 10/24/2010 Anxiety [F41.9] 10/24/2010 Thrombocytopenia (HCC) [D69.6] 10/25/2010 10/27/2010 Sinus tachycardia [R00.0] 10/28/2010 Vaginal enterocele [N81.5] 12/29/2020 Encounter Status:Closed by NATTY MARCIAL CMA on 09/27/21 [facility] CNOVon 09-26-2021 CNOV Office Visit (UROLAE) FABRICE MOON ([id number]) 1945 F [facility] Date Time Provider Department 09/26/21 1:45 PM ROXANE PINEDA During your visit today, we recorded the following information about you: Blood pressure Weight Height 128/74 88 kg 1.702 m Roxane Pineda MD 09/26/2021 2:35 PM Signed ESTABLISHED PATIENT VISIT HPI Fabrice oMon is a 76 year old female who presents with OAB, vaginal prolapse and rectocele. Patient here in follow-up to review her urodynamics and discuss surgery. She is status post an anterior and posterior repair several years ago. 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 She also has stress urinary incontinence. We did discuss that surgical correction of her prolapse may or may not improve her bladder symptoms. We did review her stress urinary incontinence. She would like to proceed with surgical correction and we will begin arranging for colpopexy and mid urethral sling. I also wrote a prescription for tolterodine today. And she will return for a consent. URINE POC GLUCOSE UA (POCT) Negative 09/26/2021 BILIRUBIN UA (POCT) Negative 09/26/2021 KETONE UA (POCT) Negative 09/26/2021 SPECIFIC GRAVITY UA (POCT) 1.015 09/26/2021 HEMOGLOBIN/BLOOD UA (POCT) Small 09/26/2021 PH UA (POCT) 5.5 09/26/2021 PROTEIN UA (POCT) Negative 09/26/2021 UROBILINOGEN UA (POCT) 0.2 09/26/2021 NITRITE UA (POCT) Negative 09/26/2021 LEUKOCYTES UA (POCT) Small 09/26/2021 COLOR UA (POCT) Yellow 09/26/2021 CLARITY UA (POCT) Clear 09/26/2021 REVIEW OF SYSTEMS GENERAL:No weight loss, malaise or fevers., SEE HPI GENITOURINARY: See HPI CONSTITUTIONALl: No recent fever or weight loss ALLERGIES Allergen Reactions - Amitriptyline Rash - Elavil [Amitriptyli* Intolerance Has taken with no reaction - Naproxyn [Naproxen] - Oxybutynin Swelling - Tramadol - Valdecoxib Rash 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 asymptomatic currently - PMH - PAST MEDICAL HISTORY OF hiatal hernia - PMH - PAST MEDICAL HISTORY OF mild aortic stenosis - Unspecified hypothyroidism many years FAMILY HISTORY Problem Relation Age of Onset - Cancer Father lung, that went to brain - Cancer Mother kidney - Diabetes Maternal Aunt - Diabetes Maternal Uncle - Coronary Artery Disease Paternal Uncle multiple in 50's - Prostate Cancer Brother - No Known Problems Brother - No Known Problems Brother - Diabetes Maternal Grandmother - Diabetes Maternal Grandfather - Cancer Paternal Grandmother - No Known Problems Paternal Grandfather Social History Tobacco Use - Smoking status: Never Smoker - Smokeless tobacco: Never Used Vaping Use - Vaping Use: Never used Substance Use Topics - Alcohol use: Yes Comment: Socially - Drug use: No MEDICATIONS: CPAP as directed. For sleep apnea started 10/09/2004 rOPINIRole (REQUIP) 0.25 mg tablet Take 0.25 mg by mouth as directed. 1 hour prior to bedtime Lactobacillus acidophilus (PROBIOTIC) 10 billion cell cap Take by mouth. amLODIPine (NORVASC) 5 mg tablet Take 5 mg by mouth once daily. pantoprazole DR (PROTONIX) 40 mg tablet Pantoprazole Sodium Active 40 MG DAILY May 26, 2018 9:59am coenzyme Q10 (COENZYME Q-10) 100 mg cap capsule Take 100 mg by mouth twice daily. Levothyroxine 100 mcg ORAL Cap Take 125 mcg by mouth once daily. aspirin, enteric coated (ASPIR-LOW) 81 mg ORAL EC tablet Take 1 tablet by mouth once daily. OTC PRODUCT Vitamin D 5000units per day B.ani-L.aci-L.dayne-L. plan-L.Van (PROBIOTIC FORMULA) 10 billion cell (2 billion ea) ORAL Cap Take by mouth. diphenoxylate-atropi ne (LOMOTIL) 2.5-0.025 mg ORAL per tablet Take by mouth. 4 times a day as needed. cholecalciferol, vitamin D3, (VITAMIN D3 ORAL) Take by mouth. amitriptyline (ELAVIL) 10 mg tablet Take 10 mg by mouth daily at bedtime. GABAPENTIN ORAL Take by mouth. POLYPODIUM LEUCOTOMOS EXTRACT (HELIOCARE ORAL) Take by mouth. benzonatate 100 mg capsule Take 1 capsule by mouth three times daily as needed for Cough. Swallow whole please. metoprolol tartrate 25 mg ORAL tablet Take 0.5 tablets by mouth twice daily. acetaminophen-hydroc odone 5-500 mg ORAL tablet Take 1-2 tablets by mouth every 6 hours as needed. (do not exceed 4000mg of acetaminophen/tyleno l in any 24 hour period) Physical Exam Blood Pressure 128/74 Height 170.2 cm (5' 7) Weight 88 kg (194 lb) Body Mass Index 30.38 kg/m? (more content not included)... Normal [facility] CNOV Office Visit (UROLAE) FABRICE MOON ([id number]) 1945 F [facility] Date Time Provider Department 09/26/21 10:00 AM PROC URODYNAMICS UROLAE During your visit today, we recorded the following information about you: Uri Capone RN 09/26/2021 9:32 AM Signed POST PROCEDURE INSTRUCTIONS Fabrice Moon September 26, 2021 ? Increase your fluid intake. ? FOLLOW UP APPOINTMENT: 09/26/21 at 1:45 pm with Roxane Pineda MD in the [address] [place] [address] office. ? WHEN TO CALL THE DOCTOR: ? If you develop fever (over 101 degrees) or chills. ? If you cannot urinate or empty your bladder. ? If you develop symptoms of a urinary tract infection such as burning or pain with urination, increased frequency of urination or foul smelling urine ? If you have any other questions or problems. Office phone number; [phone] Uri Capone RN 09/26/2021 12:10 PM Addendum Fabrice Moon [id number] 1945 September [birth year], 2021 Diagnoses: Stress urinary incontinence UA done: No Procedure Performed: Multichannel urodynamic testing including multichannel cystometrogram, urethral pressure profiles, uroflowmetry, pressure voiding study, EMG and reduced urethral pressure profiles. Was a uroflow done at some point during the study: Yes Was a cystometrogram performed: Yes Was a UPP done: Yes Was an EMG done: Yes Was an intraabdominal pressure recorded: Yes Where were pressure catheters placed: Bladder and Rectum Procedure: The patient verified medications and allergies. The procedure was explained to the patient. Immediately prior to the test the patient was given Keflex 500 mg #1 by mouth and Lidocaine 2% jelly 6 ml to urethra per order. UNIVERSAL PROTOCOL / SAFETY CHECKLIST A moment to CARE: Completed Procedure to be performed: Urodynamics Sign in Communication: Completed Time Out: Team Confirms the Correct Patient, Correct Procedure, Correct Site and Site Marking, Correct Position (if applicable), Prep and Dry Time (if applicable). Time: 1000 Affirmation of Time Out: N/A Sign Out Discussion: Completed Urodynamic Findings: Uroflow : Patient arrived with a roth catheter- No. Patient voided 96.9 ml; Curve: Normal Post void residual 50 ml QMAX 12.2 ; QAVG 5.8 . Cystometrogram: The patient had a cystometrogram EMG: Yes First Sensation 55 ml First desire Did not report ml Strong Desire 62 ml Capacity 66 ml The patient did not leak with cough. detrusor contractions beginning at 59.5 ml Instability associated with urge: Yes Instability associated with leakage: Yes Patient leaked several times during CMG and stress test. Patient refilled several times to complete test. Patient unable to hold urine. Urethral pressure profiles: Leak with Valsalva Was patient assessed for VLPP: Yes Mean Urethral closure pressure 85 cmH2O Functional urethral length 63 mm Leak point pressure testing 100 and 108 cmH2O Baseline 63 Subtracted leak point pressure 37 and 45 cmH2O Patient leaked with valsalva x2 sitting Reduced Urethral Pressure Profile: Leak with cough The prolapse was reduced with a speculum Mean urethral closure pressure of 76 cmH2O Functional urethral length of 45 cmH2O Leak point pressure testing 75 and 80 cmH2O Baseline 54 Subtracted leak point pressure 21 and 26 cmH20. Patient leaked with small cough x2 sitting. Pressure-Flow Voiding Study: EMG: Yes Void 41 ml; Curve: Normal Post void residual: 50ml Maximum detrusor pressure 44.2 Cm H20 Maximum flow rate: 3.3 ml/sec Average flow rate: 2.3 ml/sec UDS notes: UDS Summary: Uroflow: Patient voided 96 mL with a 50 mL post void residual. Normal-appearing flow. Cystometrogram: Patient had early sensation of bladder filling with significant detrusor instability with urinary leakage and stress urinary incontinence. Urethral pressure profile: Patient had significant stress urinary incontinence with and without prolapse reduction. Pressure flow: Patient voided 41 mL with a 50 mL post void residual. EMG normal both during CMG and pressure flow. Patient demonstrates significant detrusor instability with urinary leakage and stress urinary incontinence. Plan: Will follow up with provider to discuss results and plan of care. Patient tolerated the procedure well. Home going instructions given. Patient able to repeat back understanding of instructions. GUERITA Felder MD September 30, 2021 cc: Roxane Pineda MD Referring Provider: MICAH DÍAZ [[id number]] Allergies As of Date: 09/26/2021 Noted Allergy Reaction AMITRIPTYLINE 07/22/2003 2 - Rash ELAVIL (AMITRIPTYLINE HCL) 01/28/2006 5 - Intolerance Comments: Has taken with no reaction NAPROXYN (NAPROXEN) 12/13/2005 OXYBUTYNIN 07/24/2021 7 - Swelling TRAMADOL 12/13/2005 VALDECOXIB 07/22/2003 2 - Rash Date Reviewed: 09/26/2021 Revi (more content not included)... Normal [facility] UA DIP, URINE (POC)on 2021 BILIRUBIN UA (POCT) Negative Negative [facility] CLARITY UA (POCT) Clear [facility] COLOR UA (POCT) Yellow [facility] GLUCOSE UA (POCT) Negative Negative mg/dL [facility] HEMOGLOBIN/BLOOD UA (POCT) Small Abnormal Negative [facility] KETONE UA (POCT) Negative Negative mg/dL [facility] LEUKOCYTES UA (POCT) Small Abnormal [facility] NITRITE UA (POCT) Negative Negative [facility] PH UA (POCT) 5.5 4.5 - 8.0 [facility] Protein Ql (U) Negative Negative mg/dL [facility] SPECIFIC GRAVITY UA (POCT) 1.015 1.005 - 1.030 [facility] UROBILINOGEN UA (POCT) 0.2 E.U./dL Samara l E.U./dL [facility] Basophil percentageon 2021 Bilirubin [Mass/Vol] 0.40 mg/dL 0.20-1.00 [facility] Work Phone: Comment on above: For patients on eltr ombopag therapy, use of Dimension [place] TBIL is not recommended. Chloride [Moles/Vol] 107 mmol/L 98-107 [facility] Work Phone: Glucose [Mass/Vol] 101 mg/dL 74-106 [facility] Work Phone: Comment on above: Fasting Glucose resu lt from 100 to 125 mg/dL suggests IMPAIRED HOMEOSTASIS per A.D.A. criteria. Potassium [Moles/Vol] 4.0 mmol/L 3.5-5.1 [facility] Work Phone: Protein [Mass/Vol] 7.0 g/dL 6.4-8.2 [facility] Work Phone: Sodium [Moles/Vol] 140 mmol/L 136-145 [facility] Work Phone: Laboratory - Chemistry and C hemistry - challengeon 09-18-2021 ALP [Catalytic activity/Vol] 68 U/L 45-117 [facility] Work Phone: ALT [Catalytic activity/Vol] 26 U/L 13-56 [facility] Work Phone: CO2 [Moles/Vol] 27.0 mmol/L 21.0-32.0 [facility] Work Phone: Globulin (S) [Mass/Vol] 3.3 g/dL 2.2-4.2 [facility] Work Phone: Urea nitrogen/Creatinine [Mass ratio] 23.8 mg/mg 10-20 [facility] Work Phone: No Panel Informationon 09-18 Estimated GFR (MDRD) Amer 118 mL/min >60 [facility] Work Phone: Comment on above: GFR Calc Estimated GFR (MDRD) Non-Af Amer 97 mL/min >60 [facility] Work Phone: Comment on above: Non- GFR Calc Thyroid Stimulating Hormone (TSH) 0.86 uIU/mL 0.358-3.74 [facility] Work Phone: Serum or plasma albumin deo urement (mass/volume)on 09-18-2021 Albumin [Mass/Vol] 3.7 g/dL 3.2-5.0 [facility] Work Phone: Serum or plasma albumin/glob ulin mass ratioon 09-18-2021 Albumin/Globulin [Mass ratio] 1.1 {ratio} 0.9-2.4 [facility] Work Phone: Serum or plasma calcium deo urement (mass/volume)on 09-18-2021 Calcium [Mass/Vol] 8.7 mg/dL 8.5-10.1 [facility] Work Phone: Serum or plasma creatinine m easurement (mass/volume)on 09-18-2021 Creatinine [Mass/Vol] 0.63 mg/dL 0.55-1.02 [facility] Work Phone: Comment on above: The validity of the calculated GFR & GFRAA in patients over 70 years has not been determined. Clinical correlation is essential. Serum or plasma urea nitroge n measurement (mass/volume)on 09-18-2021 Urea nitrogen [Mass/Vol] 15 mg/dL 7-18 [facility] Work Phone: Thin prep Papanicolaou smear with manual screeningon 09-18-2021 Thin prep Papanicolaou smear with manual screening 19 U/L 15-37 [facility] Work Phone: Thin prep Papanicolaou smear with manual screening 6 5-15 [facility] Work Phone: CNOVon 07-24-2021 CNOV Office Visit (UROLAE) FABRICE MOON Jennifer ([id number]) 1945 F [facility] Date Time Provider Department 07/24/21 1:15 PM ROXANE PINEDA During your visit today, we recorded the following information about you: Weight Height 89.8 kg 1.702 m Roxane Pineda MD 07/24/2021 2:10 PM Signed NEW PATIENT HISTORY AND PHYSICAL EXAM HISTORY OF PRESENT ILLNESS: Fabrice Jennifer Jamal is a 76 year old female who presents New patient referred by Dr Micah Díaz for Prolapse Patient is status post hysterectomy followed by anterior and posterior repair. She now presents with recurrence of her prolapse. She also has significant urinary urgency urge incontinence and stress urinary incontinence. She has tried oxybutynin in the past however it is significant reaction to it. Has noted a vaginal bulge in a regular basis. 2 PVR 39 mL Patient with frequency and urgency. Do you leak with cough, sneeze or exercise Yes Do you leak with urgency such as getting to the restroom on time or with running water Yes How many times do you urinate during the day 20 - 25 How many times do you get up to urinate at night 3 - 4 How many pads do you wear during the day 5 pads and 1 Depend Do you wear pads at night Yes Do you have fecal urgency Yes Do you have fecal incontinence Yes Do you have pain with intercourse No Do you have urinary leakage with intercourse No What medications have you tried to help your leakage Oxybutynin What surgeries have you had for the above symptoms Cystocele, Rectocele, Bladder Suspension Patient with significant urgency and urge incontinence. See and feel bugle coming from Vaginal area Feeling of prolapse REVIEW OF SYSTEMS: GENERAL:No weight loss, malaise or fevers ALLERGIC/IMMUNOLOGIC : drug allergies HEENT:Negative for frequent or significant headaches, No changes in hearing or vision, no nose bleeds or other nasal problems RESPIRATORY: Negative for cough, hemoptysis, wheezing, COPD, dyspnea or shortness of breath CARDIOVASCULAR: Negative for chest pain, leg swelling, hypertension, CHF or palpitations GASTROINTESTINAL: Positive for diarrhea have colitis GENITOURINARY: See HPI MUSCULOSKELETAL: joint pain or swelling, back pain and muscle pain NEUROLOGIC:Negative for focal numbness or weakness, headaches and dizziness or syncope. SKIN:Negative for lesions, rash, and itching MEDICATIONS: CPAP as directed. For sleep apnea started 10/09/2004 rOPINIRole (REQUIP) 0.25 mg tablet Take 0.25 mg by mouth as directed. 1 hour prior to bedtime cholecalciferol, vitamin D3, (VITAMIN D3 ORAL) Take by mouth. Lactobacillus acidophilus (PROBIOTIC) 10 billion cell cap Take by mouth. amLODIPine (NORVASC) 5 mg tablet Take 5 mg by mouth once daily. pantoprazole DR (PROTONIX) 40 mg tablet Pantoprazole Sodium Active 40 MG DAILY May 26, 2018 9:59am coenzyme Q10 (COENZYME Q-10) 100 mg cap capsule Take 100 mg by mouth twice daily. metoprolol tartrate 25 mg ORAL tablet Take 0.5 tablets by mouth twice daily. Levothyroxine 100 mcg ORAL Cap Take 125 mcg by mouth once daily. aspirin, enteric coated (ASPIR-LOW) 81 mg ORAL EC tablet Take 1 tablet by mouth once daily. OTC PRODUCT Vitamin D 5000units per day amitriptyline (ELAVIL) 10 mg tablet Take 10 mg by mouth daily at bedtime. GABAPENTIN ORAL Take by mouth. POLYPODIUM LEUCOTOMOS EXTRACT (HELIOCARE ORAL) Take by mouth. benzonatate 100 mg capsule Take 1 capsule by mouth three times daily as needed for Cough. Swallow whole please. acetaminophen-hydroc odone 5-500 mg ORAL tablet Take 1-2 tablets by mouth every 6 hours as needed. (do not exceed 4000mg of acetaminophen/tyleno l in any 24 hour period) B.ani-L.aci-L.dayne-L. plan-L.Van (PROBIOTIC FORMULA) 10 billion cell (2 billion ea) ORAL Cap Take by mouth. diphenoxylate-atropi ne (LOMOTIL) 2.5-0.025 mg ORAL per tablet Take by mouth. 4 times a day as needed. 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 Albumin mass conc 3.6 g/dL [facility] Work Phone: Albumin/Globulin mass ratio 1.1 {ratio} [facility] Work Phone: ALP enzyme act/vol (Bld) 73 U/L [facility] Work Phone: ALT enzyme act/vol 45 U/L [facility] Work Phone: 1) 0 Anion gap molar conc 4 mmol/L Low [facility] Work Phone: 1) 0 AST enzyme act/vol 29 U/L [facility] Work Phone: 1) 0 Bilirubin mass conc 0.60 mg/dL [facility] Work Phone: 1) 0 Calcium mass conc 8.4 mg/dL Low [facility] Work Phone: 1) 0 Chloride molar conc 105 mmol/L [facility] Work Phone: 1) 0 Cholesterol in HDL mass conc 44 mg/dL [facility] Work Phone: 1) 0 Cholesterol in LDL mass conc 149 mg/dL [facility] Work Phone: 1) 0 Cholesterol mass conc 228 mg/dL [facility] Work Phone: 1) 0 CO2 ppres (BldV) 27.0 mmol/L [facility] Work Phone: 1) 0 Creatinine mass conc 0.65 mg/dL [facility] Work Phone: 1 0 Erythrocyte distribution width Ratio (RBC) 12.9 % [facility] Work Phone: 1 0 GFR/1.73 sq M predicted among non-blacks MDRD vol rate/area (S/P/Bld) 95 mL/min/{1.73_m2} [facility] Work Phone: ) 0 Globulin mass conc (S) 3.4 g/dL [facility] Work Phone: ) 0 Glomerular Filtration Rate 115 mL/min/1.73m2 [facility] Work Phone: 1) 0 Glucose mass conc 95 mg/dL [facility] Work Phone: 1 0 Hematocrit Volume Fraction (Bld) 41.6 % [facility] Work Phone: 1) 0 Hemoglobin mass conc (Bld) 13.8 g/dL [facility] Work Phone: ) 0 Lipoprotein.pre-beta mass conc 35 mg/dL [facility] Work Phone: [phone] MCH Entitic mass (RBC) 30.7 pg [facility] Work Phone: 1 0 MCHC mass conc (RBC) 33.2 g/dL [facility] Work Phone: [phone] MCV Entitic volume (RBC) 92.7 fL [facility] Work Phone: 1 0 Platelet mean volume Entitic volume (Bld) 10.7 fL [facility] Work Phone: 1) 0 Platelets #/vol (Bld) 194 10*3/mm3 [facility] Work Phone: 1 0 Potassium molar conc 3.7 mmol/L [facility] Work Phone: 1 0 Protein mass conc 7.0 g/dL [facility] Work Phone: 1) 0 RBC #/vol (Bld) 4.49 10*6/uL [facility] Work Phone: 1 0 Sodium molar conc 136 mmol/L [facility] Work Phone: 1 0 Thyrotropin Qn 0.87 u[iU]/mL [facility] Work Phone: 1 0 Triglyceride mass conc 175 mg/dL [facility] Work Phone: [phone] Urea nitrogen mass conc 9 mg/dL [facility] Work Phone: 1 0 Urea nitrogen/Creatinine mass ratio 13.8 mg/mg [facility] Work Phone: 1 0 WBC #/vol (Bld) 6.3 10*3/uL [facility] Work Phone: [phone] Office Visiton 07-11-2015 Tobacco smoking status NHIS Never smoker [facility] Work Phone: [phone] Replaced Document: [facility] E CG Observationson 12-08-2014 EKG QRS axis 12 deg [facility] Work Phone: [phone] Interpretation Sinus Bradycardia - occasional ectopic ventricular beat - Nonspecific T-abnormality. ABNORMAL [facility] Work Phone: [phone] P [place] 45 deg [facility] Work Phone: [phone] WI Interval 182 ms [facility] Work Phone: [phone] QRS Duration 94 ms [facility] Work Phone: [phone] QT Interval new path ms [facility] Work Phone: [phone] QTc Madrigal 413 ms [facility] Work Phone: [phone] T [place] 90 deg [facility] Work Phone: [phone] Office Visiton 05-12-2014 cardiac risk group C [facility] Work Phone: [phone] General cardiovascular disease 10Y risk [#] [place]ostino N/A [facility] Work Phone: [phone] 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 Micah Díaz DO Work Phone: [facility] 02-02-2025 11:12-0400 Body mass index (BMI) [Ratio] 30.6 kg/m2 Dr. Miach Díaz DO Work Phone: [facility] 02-02-2025 11:12-0400 Body temperature 97.9 [degF] Dr. Micah Díaz DO Work Phone: [facility] 02-02-2025 11:12-0400 Body weight 83.[address] Micah Díaz DO Work Phone: [facility] 02-02-2025 11:12-0400 Diastolic blood pressure 78 mm[Hg] Dr. Micah Díaz DO Work Phone: [facility] 02-02-2025 11:12-0400 Heart rate 70 /min Dr. Micah Díaz DO Work Phone: [facility] 02-02-2025 11:12-0400 Systolic blood pressure 126 mm[Hg] Dr. Micah Díaz DO Work Phone: [facility] 01-26-2025 11:35-0400 Body mass index (BMI) [Ratio] 30.6 kg/m2 Dr. Micah Díaz DO Work Phone: [facility] 01-26-2025 11:35-0400 Body temperature 98.1 [degF] Dr. Micah Díaz DO Work Phone: [facility] 01-26-2025 11:35-0400 Body weight 83.[address] Micah Díaz DO Work Phone: [facility] 01-26-2025 11:35-0400 Diastolic blood pressure 80 mm[Hg] Dr. Micah Díaz DO Work Phone: [facility] 01-26-2025 11:35-0400 Heart rate 70 /min Dr. Micah Díaz DO Work Phone: [facility] 01-26-2025 11:35-0400 Systolic blood pressure 124 mm[Hg] Dr. Micah Díaz DO Work Phone: [facility] 01-20-2025 08:51-0400 Body mass index (BMI) [Ratio] 30.6 kg/m2 Dr. Micah Díaz DO Work Phone: [facility] 01-20-2025 08:51-0400 Body weight 83.[address] Micah Díaz DO Work Phone: [facility] 01-20-2025 08:51-0400 Diastolic blood pressure 71 mm[Hg] Dr. Micah Díaz DO Work Phone: [facility] 01-20-2025 08:51-0400 Heart rate 52 /min Dr. Micah Díaz DO Work Phone: [facility] 01-20-2025 08:51-0400 Respiratory rate 16 /min Dr. Micah Díaz DO Work Phone: [facility] 01-20-2025 08:51-0400 SaO2% (BldA) [Mass fraction] 94 % Dr. Micah Díaz DO Work Phone: [facility] 01-20-2025 08:51-0400 Systolic blood pressure 113 mm[Hg] Dr. Micah Díaz DO Work Phone: [facility] 01-19-2025 12:56-0400 Body height 165.[address] Micah Díaz DO Work Phone: [facility] 01-19-2025 12:56-0400 Body mass index (BMI) [Ratio] 29.6 kg/m2 Dr. Micah Díaz DO Work Phone: [facility] 01-19-2025 12:56-0400 Body temperature 98 [degF] Dr. Micah Díaz DO Work Phone: [facility] 01-19-2025 12:56-0400 Body weight 80.[address] Micah Díaz DO Work Phone: [facility] 01-19-2025 12:56-0400 Diastolic blood pressure 82 mm[Hg] Dr. Micah Díaz DO Work Phone: [facility] 01-19-2025 12:56-0400 Respiratory rate 74 /min Dr. Micah Díaz DO Work Phone: [facility] 01-19-2025 12:56-0400 Systolic blood pressure 124 mm[Hg] Dr. Micah Díaz DO Work Phone: [facility] 01-12-2025 11:32-0400 Body height 165.[address] Micah Díaz DO Work Phone: [facility] 01-12-2025 11:32-0400 Body mass index (BMI) [Ratio] 29.6 kg/m2 Dr. Micah Díaz DO Work Phone: [facility] 01-12-2025 11:32-0400 Body temperature 98.1 [degF] Dr. Micah Díaz DO Work Phone: [facility] 01-12-2025 11:32-0400 Body weight 80.[address] Micah Díaz DO Work Phone: [facility] 01-12-2025 11:32-0400 Diastolic blood pressure 80 mm[Hg] Dr. Micah Díaz DO Work Phone: [facility] 01-12-2025 11:32-0400 Heart rate 74 /min Dr. Micah Díaz DO Work Phone: [facility] 01-12-2025 11:32-0400 Systolic blood pressure 126 mm[Hg] Dr. Micah Díaz DO Work Phone: [facility] 01-05-2025 14:01-0400 Body height 165.[address] Micah Díaz DO Work Phone: [facility] 01-05-2025 14:01-0400 Body mass index (BMI) [Ratio] 29.6 kg/m2 Dr. Micah Díaz DO Work Phone: [facility] 01-05-2025 14:01-0400 Body temperature 97.9 [degF] Dr. Micah Díaz DO Work Phone: [facility] 01-05-2025 14:01-0400 Body weight 80.[address] Micah Díaz DO Work Phone: [facility] 01-05-2025 14:01-0400 Diastolic blood pressure 84 mm[Hg] Dr. Micah Díaz DO Work Phone: [facility] 01-05-2025 14:01-0400 Heart rate 60 /min Dr. Micah Díaz DO Work Phone: [facility] 01-05-2025 14:01-0400 Systolic blood pressure 128 mm[Hg] Dr. Micah Díaz DO Work Phone: [facility] 12-29-2024 11:52-0400 Body height 165.[address] Micah Díaz DO Work Phone: [facility] 12-29-2024 11:52-0400 Body mass index (BMI) [Ratio] 29.6 kg/m2 Dr. Micah Díaz DO Work Phone: [facility] 12-29-2024 11:52-0400 Body temperature 97.9 [degF] Dr. Micah Díaz DO Work Phone: [facility] 12-29-2024 11:52-0400 Body weight 80.[address] Micah Díaz DO Work Phone: [facility] 12-29-2024 11:52-0400 Diastolic blood pressure 78 mm[Hg] Dr. Micah Díaz DO Work Phone: [facility] 12-29-2024 11:52-0400 Heart rate 76 /min Dr. Micah Díaz DO Work Phone: [facility] 12-29-2024 11:52-0400 Systolic blood pressure 124 mm[Hg] Dr. Micah Díaz DO Work Phone: [facility] 12-22-2024 11:30-0400 Body height 165.[address] Micah Díaz DO Work Phone: [facility] 12-22-2024 11:30-0400 Body mass index (BMI) [Ratio] 29.6 kg/m2 Dr. Micah Díaz DO Work Phone: [facility] 12-22-2024 11:30-0400 Body temperature 97.9 [degF] Dr. Micah Díaz DO Work Phone: [facility] 12-22-2024 11:30-0400 Body weight 80.[address] Micah Díaz DO Work Phone: [facility] 12-22-2024 11:30-0400 Diastolic blood pressure 78 mm[Hg] Dr. Micah Díaz DO Work Phone: [facility] 12-22-2024 11:30-0400 Heart rate 64 /min Dr. Micah Díaz DO Work Phone: [facility] 12-22-2024 11:30-0400 Systolic blood pressure 126 mm[Hg] Dr. Micah Díaz DO Work Phone: [facility] 12-15-2024 11:28-0400 Body height 165.[address] Micah Díaz DO Work Phone: [facility] 12-15-2024 11:28-0400 Body mass index (BMI) [Ratio] 29.6 kg/m2 Dr. Micah íDaz DO Work Phone: [facility] 12-15-2024 11:28-0400 Body temperature 98 [degF] Dr. Micah Díaz DO Work Phone: [facility] 12-15-2024 11:28-0400 Body weight 80.[address] Micah Díaz DO Work Phone: [facility] 12-15-2024 11:28-0400 Diastolic blood pressure 84 mm[Hg] Dr. Micah Díaz DO Work Phone: [facility] 12-15-2024 11:28-0400 Heart rate 68 /min Dr. Micah Díaz DO Work Phone: [facility] 12-15-2024 11:28-0400 Systolic blood pressure 128 mm[Hg] Dr. Micah Díaz DO Work Phone: [facility] 12-07-2024 15:31-0400 Body height 165.[address] Micah Díaz DO Work Phone: [facility] 12-07-2024 15:31-0400 Body mass index (BMI) [Ratio] 29.6 kg/m2 Dr. Micah Díaz DO Work Phone: [facility] 12-07-2024 15:31-0400 Body temperature 98 [degF] Dr. Micah Díaz DO Work Phone: [facility] 12-07-2024 15:31-0400 Body weight 80.[address] Micah Díaz DO Work Phone: [facility] 12-07-2024 15:31-0400 Diastolic blood pressure 78 mm[Hg] Dr. Micah Díaz DO Work Phone: [facility] 12-07-2024 15:31-0400 Heart rate 60 /min Dr. Micah Díaz DO Work Phone: [facility] 12-07-2024 15:31-0400 Systolic blood pressure 120 mm[Hg] Dr. Micah Díza DO Work Phone: [facility] 07-20-2024 11:01-0400 Body mass index (BMI) [Ratio] 32.3 kg/m2 Dr. Micah Díaz DO Work Phone: [facility] 07-20-2024 11:01-0400 Body weight 87.[address] Micah Díaz DO Work Phone: [facility] 07-20-2024 11:01-0400 Diastolic blood pressure 83 mm[Hg] Dr. Micah Díaz DO Work Phone: [facility] 07-20-2024 11:01-0400 Heart rate 57 /min Dr. Micah Díaz DO Work Phone: [facility] 07-20-2024 11:01-0400 Respiratory rate 18 /min Dr. Micah Díaz DO Work Phone: [facility] 07-20-2024 11:01-0400 SaO2% (BldA) [Mass fraction] 97 % Dr. Micah Díaz DO Work Phone: [facility] 07-20-2024 11:01-0400 Systolic blood pressure 162 mm[Hg] Dr. Micah Díaz DO Work Phone: [facility] 05-18-2024 13:52-0500 Body height 164.5 cm Cassy Zuniga MD Work Phone: [facility] 05-18-2024 13:52-0500 Body mass index (BMI) [Ratio] 32.37 kg/m2 Cassy Zuniga MD Work Phone: [facility] 05-18-2024 13:52-0500 Body weight 87.54 kg Cassy Zuniga MD Work Phone: [facility] 05-18-2024 13:52-0500 Diastolic blood pressure 74 mm[Hg] Cassy Zuniga MD Work Phone: [facility] 05-18-2024 13:52-0500 Systolic blood pressure 148 mm[Hg] Cassy Zuniga MD Work Phone: [facility] 04-25-2023 10:56-0500 Body height 165.[address] Micah Díaz Work Phone: [facility] 04-25-2023 10:56-0500 Body mass index (BMI) [Ratio] 31.2 kg/m2 Dr. Micah Díaz Work Phone: [facility] 04-25-2023 10:56-0500 Body weight 85.[address] Micah Díaz Work Phone: [facility] 04-25-2023 10:56-0500 Diastolic blood pressure 82 mm[Hg] Dr. Micah Díaz Work Phone: [facility] 04-25-2023 10:56-0500 Heart rate 78 /min Dr. Micah Díaz Work Phone: [facility] 04-25-2023 10:56-0500 Respiratory rate 18 /min Dr. Micah Díaz Work Phone: [facility] 04-25-2023 10:56-0500 SaO2% (BldA) [Mass fraction] 96 % Dr. Micah Díaz Work Phone: [facility] 04-25-2023 10:56-0500 Systolic blood pressure 119 mm[Hg] Dr. Micah Díaz Work Phone: [facility] 01-07-2023 14:20-0400 Body height 165.[address] Micah Díaz Work Phone: [facility] 01-07-2023 14:20-0400 Body mass index (BMI) [Ratio] 30.9 kg/m2 Dr. Micah Díaz Work Phone: [facility] 01-07-2023 14:20-0400 Body weight 84.[address] Micah Díaz Work Phone: [facility] 01-07-2023 14:20-0400 Diastolic blood pressure 67 mm[Hg] Dr. Micah Díaz Work Phone: [facility] 01-07-2023 14:20-0400 Heart rate 52 /min Dr. Micah Díaz Work Phone: [facility] 01-07-2023 14:20-0400 Respiratory rate 18 /min Dr. Micah Díaz Work Phone: [facility] 01-07-2023 14:20-0400 SaO2% (BldA) [Mass fraction] 97 % Dr. Micah Díaz Work Phone: [facility] 01-07-2023 14:20-0400 Systolic blood pressure 121 mm[Hg] Dr. Micah Díaz Work Phone: [facility] 12-24-2022 11:13-0400 Body height 165.[address] Micah Díaz Work Phone: [facility] 12-24-2022 11:13-0400 Body weight 83.[address] Micah Díaz Work Phone: [facility] 12-23-2022 14:17-0400 Body mass index (BMI) [Ratio] 30.7 kg/m2 Dr. Micah Díaz Work Phone: [facility] 11-01-2022 10:33-0400 Body height 165.[address] Micah Díaz Work Phone: [facility] 11-01-2022 10:33-0400 Body weight 83.[address] Micah Díaz Work Phone: [facility] 10-31-2022 07:09-0400 Body mass index (BMI) [Ratio] 30.7 kg/m2 Dr. Micah Díaz Work Phone: [facility] 10-03-2022 09:50-0400 Body mass index (BMI) [Ratio] 30.7 kg/m2 Dr. Micah Díaz Work Phone: [facility] 10-03-2022 09:50-0400 Body weight 83.[address] Micah Díaz Work Phone: [facility] 10-03-2022 09:50-0400 Diastolic blood pressure 80 mm[Hg] Dr. Micah Díaz Work Phone: [facility] 10-03-2022 09:50-0400 Heart rate 92 /min Dr. Micah Díaz Work Phone: [facility] 10-03-2022 09:50-0400 Respiratory rate 18 /min Dr. Micah Díaz Work Phone: [facility] 10-03-2022 09:50-0400 SaO2% (BldA) [Mass fraction] 98 % Dr. Micah Díaz Work Phone: [facility] 10-03-2022 09:50-0400 Systolic blood pressure 129 mm[Hg] Dr. Micah Díaz Work Phone: [facility] 05-31-2022 09:49-0500 Body height 165.[address] Micah Díaz Work Phone: [facility] 05-31-2022 09:49-0500 Diastolic blood pressure 77 mm[Hg] Dr. Micah Díaz Work Phone: [facility] 05-31-2022 09:49-0500 Systolic blood pressure 120 mm[Hg] Dr. Micah Díaz Work Phone: [facility] 05-31-2022 09:49-0500 Body mass index (BMI) [Ratio] 32.9 kg/m2 Dr. Micah Díaz Work Phone: [facility] 05-31-2022 09:49-0500 Body weight 89.[address] Micah Díaz Work Phone: [facility] 05-31-2022 09:49-0500 Heart rate 52 /min Dr. Micah Díaz Work Phone: [facility] 05-31-2022 09:49-0500 Respiratory rate 20 /min Dr. Micah Díaz Work Phone: [facility] 05-31-2022 09:49-0500 SaO2% (BldA) [Mass fraction] 96 % Dr. Micah Díaz Work Phone: [facility] 09-26-2021 13:36-0400 Body height 170.2 cm Roxane Pineda MD Work Phone: [facility] 09-26-2021 13:36-0400 Body weight 88 kg Roxane Pineda MD Work Phone: [facility] 09-26-2021 13:36-0400 Diastolic blood pressure 74 mm[Hg] Roxane Pineda MD Work Phone: [facility] 09-26-2021 13:36-0400 Systolic blood pressure 128 mm[Hg] Roxane Pineda MD Work Phone: [facility] 07-24-2021 13:23-0400 Body height 170.2 cm Roxane Pineda MD Work Phone: [facility] 07-24-2021 13:23-0400 Body weight 89.81 kg Roxane Pineda MD Work Phone: [facility] 05-08-2021 12:23-0500 Body height 165.[address] Micah Díaz Work Phone: [facility] Work Phone: 05-08-2021 12:23-0500 Body mass index (BMI) [Ratio] 33.1 kg/m2 Dr. Micah Díaz Work Phone: [facility] Work Phone: 05-08-2021 12:23-0500 Body weight 90.[address] Micah Díaz Work Phone: [facility] Work Phone: 05-08-2021 12:23-0500 Diastolic blood pressure 80 mm[Hg] Dr. Micah Díaz Work Phone: [facility] Work Phone: 05-08-2021 12:23-0500 Heart rate 53 /min Dr. Micah Díaz Work Phone: [facility] Work Phone: 05-08-2021 12:23-0500 Respiratory rate 18 /min Dr. Micah Díaz Work Phone: [facility] Work Phone: 05-08-2021 12:23-0500 SaO2% (BldA) [Mass fraction] 95 % Dr. Micah Díaz Work Phone: [facility] Work Phone: 05-08-2021 12:23-0500 Systolic blood pressure 148 mm[Hg] Dr. Micah Díaz Work Phone: [facility] Work Phone: 05-21-2016 10:03-0500 BMI (Body Mass Index) 32.48 kg/m2 Angel Fairchild MD [facility] Work Phone: 05-21-2016 10:03-0500 BP Diastolic 64 mm[Hg] MD [facility] Work Phone: 05-21-2016 10:03-0500 BP Systolic 120 mm[Hg] MD [facility] Work Phone: 05-21-2016 10:03-0500 BSA (Body Surface Area) 2.06 m2 Angel Fairchild MD [facility] Work Phone: 05-21-2016 10:03-0500 Pulse (Heart Rate) 52 /min MD [facility] Work Phone: 05-21-2016 10:03-0500 Respiratory Rate 20 /min MD [facility] Work Phone: 05-21-2016 10:03-0500 Weight 94.08 kg Angel Fairchild MD [facility] Work Phone: 12-08-2014 08:39-0400 Heart rate 59 /min MD [facility] Work Phone: 11-03-2013 11:39-0400 Heart rate 416 ms MD [facility] Work Phone: 09-03-2011 11:22-0400 Height 170.18 cm Angel Fairchild MD [facility] Work Phone: Encounters Encounter Date Encounter Type Care Provider Facility Start: 02-02-2025 End: 02-02-2025 ambulatory Micah Díaz Facility:[facility] Start: 01-26-2025 End: 01-26-[address] Lynn Christensen MD -[facility] Work Phone: Start: 01-26-2025 End: 01-26-[address] Micah Díaz DO Work Phone: -[facility] Start: 01-20-2025 End: 01-20-2025 Patient encounter procedure Ileana ALEGRE -[facility] Work Phone: Start: 01-20-2025 End: 01-20-[address] Micah Díaz DO Work Phone: -[facility] Start: 01-19-2025 End: 01-19-[address] Christiano Medeiros DPM -Physical Therapy Work Phone: Start: 01-19-2025 End: 01-19-[address] Lynn Christensen MD -[facility] Work Phone: Start: 01-19-2025 End: 01-19-[address] [facility] Start: 01-14-2025 End: 01-14-[address] [facility] Work Phone: Start: 01-14-2025 End: 01-14-[address] Micah Díaz DO [facility] Start: 01-14-2025 Non-patient / Non-visit Dr. Lynn negron MD -[facility] Work Phone: Start: 01-13-[address] Monserrat Medeiros DPM -Physical Therapy Work Phone: Start: 01-12-2025 End: 01-12-[address] Lynn Christensen MD -[facility] Work Phone: Start: 01-12-2025 End: 01-12-[address] Micah Díaz DO Work Phone: -[facility] Start: 01-11-[address] Monserrat Medeiros DPBrigitte -Physical Therapy Work Phone: Start: 01-07-2025 Non-patient / Non-visit Dr. Reginald casanova MD -[facility] Start: 01-07-2025 End: 01-07-[address] Micah Díaz DO Work Phone: -Cardiovascular Services Start: 01-07-2025 End: 01-07-[address] Micah Díaz DO -Cardiovascular Services Work Phone: Start: 01-07-2025 End: 01-07-2025 ambulatory Micah Díaz Facility:[facility] Start: 01-05-2025 End: 01-05-[address] [facility] Work [facility]: Start: 01-05-2025 End: 01-05-[address] Micah Díaz [facility] Start: 12-29-2024 End: 12-29-[address] [facility] Work Phone: Start: 12-29-2024 End: 12-29-[address] Micah Díaz [facility] Start: 12-28-[address] Monserrat Medeiros DPM -Physical Therapy Work Phone: Start: 12-22-2024 End: 12-22-[address] [facility] Work [facility]: Start: 12-22-2024 End: 12-22-[address] Micah Díaz DO [facility] Start: 12-21-[address] Monserrat Medeiros DPBrigitte -Physical Therapy Work Phone: Start: 12-15-2024 End: 12-15-[address] [facility] Work [facility]: Start: 12-15-2024 End: 12-15-[address] Micah Díaz [facility] Start: 12-07-2024 End: 12-07-[address] Lynn Christensen MD -[facility] Work Phone: Start: 12-07-2024 End: 12-07-[address] Micah Díaz DO Work Phone: -[facility] Start: 11-17-2024 ambulatory Micah Díaz Facility: [facility] Start: 11-17-2024 Non-patient / Non-visit Dr. Lynn negron MD -[facility] Work Phone: Start: 10-12-2024 Non-patient / Non-visit Dr. Lynn negron MD -[facility] Work Phone: Start: 09-15-2024 End: 09-15-[address] Micah Díaz DO Work Phone: [facility] Work Phone: Start: 09-15-2024 End: 09-15-[address] Christiano Medeiros DPM [facility] Work Phone: Start: 09-15-2024 End: 09-15-2024 ambulatory Christiano Medeiros Facility:[facility] Start: 08-31-2024 End: 08-31-[address] Matti Camarillo DO -Laboratory Work Phone: Start: 08-31-2024 End: 08-31-2024 ambulatory Matti Camarillo Facility:[facility] Start: 07-23-2024 Non-patient / Non-visit Milka PRIEST -[facility] Work Phone: Start: 07-23-2024 ambulatory Micah [facility] Facility: [facility] Start: 07-22-2024 Non-patient / Non-visit Dr. Dillard [place] -[facility] Start: 07-22-2024 End: 07-22-[address] Micah Díaz DO Work Phone: [facility] Work Phone: Start: 07-22-2024 End: 07-22-2024 Patient encounter procedure Milka EDGARC -Cardiovascular Services Work Phone: Start: 07-22-2024 End: 07-22-2024 ambulatory Micah Díaz Facility:[facility] Start: 07-20-2024 End: 07-20-2024 Patient encounter procedure Milka PRIEST -[facility] Work Phone: Start: 07-20-2024 End: 07-20-2024 ambulatory Micah Bre Facility:[facility] Start: 06-28-2024 End: 06-28-[address] Micah Díaz DO Work Phone: [facility] Work Phone: Start: 06-28-2024 End: 06-28-[address] Micah Díaz DO -Laboratory, [facility] Start: 06-28-2024 End: 06-28-2024 ambulatory Micah Díaz Facility:[facility] Start: 06-17-2024 End: 06-17-[address] Micah Díaz DO Work Phone: [facility] Work Phone: Start: 06-17-2024 End: 06-17-[address] [facility] DPBrigitte [facility] Work [facility]: Start: 06-17-2024 End: 06-17-2024 ambulatory Christiano Medeiros Facility:[facility] Start: 06-08-2024 End: 06-08-[address] Micah Díaz DO Work Phone: [facility] Work Phone: Start: 06-08-2024 End: 06-08-[address] Rene Lomax MD -Physical Therapy Work Phone: Start: 06-08-[address] Rene Manriquez i, MD -Physical Therapy Work Phone: Start: 05-19-2024 End: 05-19-2024 ambulatory CASSY ZUNIGA Facility:[facility] Start: 05-19-2024 Encounter for gynecological examination (general) (routine) without abnormal findings CASSY ZUNIGA [facility] Start: 05-19-2024 End: 05-19-2024 Patient encounter status Screen [facility] Start: 05-19-2024 End: 05-19-2024 Subsequent hospital visit by physician Screen Mammo [facility] Mammogram Comment on above: Encounter for gyneco logical examination (general) (routine) without abnormal findings [Z01.419] Start: 05-18-2024 End: 05-18-2024 ambulatory CASSY ZUNIGA Facility:[facility] Start: 05-18-2024 End: 05-18-2024 Patient encounter procedure Cassy Zuniga MD Work Phone: OB/Gynecology Comment on above: Encounter for gyneco logical examination (general) (routine) without abnormal findings (Primary Dx); Encounter for screening mammogram for breast cancer Start: 05-18-2024 End: 05-18-2024 Patient encounter status Cassy Zuniga MD Work Phone: [facility] Start: 04-27-2024 End: 04-27-[address] [facility] Work Phone: Start: 04-27-2024 End: 04-27-2024 ambulatory Matti Camarillo Facility:[facility] Start: 03-26-2024 End: 03-29-2024 Telephone encounter Cassy Zuniga MD Work Phone: OB/Gynecology Comment on above: Patient Question Start: 07-01-2023 End: 07-01-[address] Micah Díaz Work Phone: [facility] Work Phone: Start: 07-01-2023 End: 07-01-[address] Micah Díaz Work Phone: [facility]-Laboratory Work Phone: Start: 04-25-2023 End: 04-25-[address] Micah Díaz Work Phone: [facility] Work Phone: Start: 04-21-2023 End: 04-21-2023 Subsequent hospital visit by physician Xr [facility] Work Phone: Radiology Comment on above: Left wrist pain [M25 .532] Start: 04-04-2023 Documentation procedure Mammog minda Coordinator [facility] Start: 04-04-2023 Letter encounter Mammography Coordinator [facility] Department Start: 03-31-2023 Telephone encounter Cassy Zuniga MD Work Phone: [facility] Comment on above: Orders Start: 02-28-2023 End: 02-28-[address] Micah Díaz Work Phone: [facility] Work Phone: Start: 02-28-2023 End: 02-28-[address] Micah Díaz Work Phone: [facility]-Laboratory Work Phone: Start: 01-30-2023 Non-patient / Non-visit Dr. Balbir Díaz Work Phone: [facility] Start: 01-30-2023 End: 01-30-[address] Micah Díaz Work Phone: [facility] Work Phone: Start: 01-30-2023 End: 01-30-[address] Micah Díaz Work Phone: [facility]-Cardiovascul ar Services Work Phone: Start: 01-07-2023 End: 01-07-[address] Micah Díaz Work Phone: [facility] Work Phone: Start: 12-31-2022 End: 12-31-[address] Micah Díaz Work Phone: [facility] Work Phone: Start: 12-24-2022 Non-patient / Non-visit Dr. Balbir Díaz Work Phone: [facility] Start: 12-24-2022 End: 12-24-2022 Admission to same day surgery center Dr. Micah Díaz Work Phone: [facility]-[employer]creational [employer] Manager/Special Procedures Work Phone: Start: 12-24-2022 End: 12-24-[address] Micah Díaz Work Phone: [facility] Work Phone: Start: 12-23-2022 End: 12-23-[address] Micah Díaz Work Phone: [facility] Work Phone: Start: 12-23-2022 End: 12-23-[address] Micah Díaz Work Phone: [facility]-Laboratory Work Phone: Start: 12-01-2022 Non-patient / Non-visit Dr. Balbir Díaz Work Phone: [facility] Start: 11-01-2022 Non-patient / Non-visit Dr. Balbir Díaz Work Phone: [facility] Start: 11-01-2022 Non-patient / Non-visit Dr. Balbir Díaz Work Phone: [facility] Start: 11-01-2022 End: 11-01-2022 Admission to same day surgery center Dr. Micah Díaz Work Phone: [facility]-[employer] Resort Manager/Special Procedures Work Phone: Start: 10-16-2022 End: 10-16-[address] Micah Díaz Work Phone: [facility] Work Phone: Start: 10-16-2022 End: 10-16-[address] Micah Díaz Work Phone: [facility]-Physical Therapy Work Phone: Start: 10-09-2022 End: 10-09-[address] Micah Díaz Work Phone: [facility] Work Phone: Start: 10-03-2022 End: 10-03-[address] Micah Díaz Work Phone: [facility] Work Phone: Start: 06-12-2022 Non-patient / Non-visit Dr. Balbir Díaz Work Phone: [facility] Start: 2022 Non-patient / Non-visit Dr. Balbir Díaz Work Phone: [facility] Start: [address] Micah Díaz Work Phone: [facility]-Cardiovascul ar Services Start: 06-10-2022 End: 06-10-[address] Micah Díaz Work Phone: [facility] Work Phone: Start: 06-10-2022 End: 06-10-[address] Micah Díaz Work Phone: [facility]-Radiology, [facility] Start: 06-03-[address] Micah Díaz Work Phone: [facility]-Physical Therapy Start: 05-31-2022 End: 05-31-[address] Micah Díaz Work Phone: [facility] Start: 04-24-2022 End: 04-24-2022 ambulatory [facility] Work Phone: Start: 04-24-2022 End: 04-24-2022 [facility] Start: 04-22-2022 End: 04-22-2022 ambulatory [facility] Work Phone: Start: 04-22-2022 End: 04-22-2022 [facility] Start: 03-27-2022 End: 03-27-2022 ambulatory [facility] Facility:[facility] Start: 03-26-2022 Documentation procedure Mammog minda Coordinator [facility] Start: 03-26-2022 Letter encounter Mammography Coordinator [facility] Department Start: 03-25-2022 End: 03-25-2022 Subsequent hospital visit by physician Screen Mammo [facility] Mammogram Comment on above: Encounter for screen ing mammogram for malignant neoplasm of breast [Z12.31] Start: 03-22-2022 Telephone encounter Cassy Zuniga MD Work Phone: OB/Gynecology Comment on above: Orders Start: 02-27-2022 End: 02-27-2022 ambulatory [facility] Work Phone: Start: 02-27-2022 End: 02-27-2022 Patient encounter procedure [facility] Start: 02-07-2022 Telephone encounter Roxane Pineda MD Work Phone: [facility] Comment on above: Medication Problem Start: 01-18-2022 End: 01-18-2022 ambulatory [facility] Work Phone: Start: 01-18-2022 End: 01-18-2022 [facility] Start: 01-01-2022 Telephone encounter Roxane Pineda MD Work Phone: [facility] Comment on above: Medication Problem Start: 12-26-2021 End: 12-26-2021 ambulatory [facility] Facility:[facility] Start: 12-18-2021 Telephone encounter Roxane Pineda MD Work Phone: [facility] Comment on above: Patient Question Start: 12-10-2021 ambulatory MICAH DÍAZ Facilit y:[facility] Start: 11-13-2021 Telephone encounter Roxane Pineda MD Work Phone: Urology Comment on above: Medication Problem Start: 11-12-2021 Telephone encounter Roxane Pineda MD Work Phone: Urology Comment on above: Surgery Question Start: 10-12-2021 Orders Only Roxane zimmerman MD Work Phone: Urology Comment on above: Urgency of urination (Primary Dx); Prolapse of vaginal vault after hysterectomy; Stress incontinence; Rectocele Start: 09-27-2021 Telephone encounter Roxane Pineda MD Work Phone: [facility] Comment on above: FYI-No Action Needed ; Medication Problem Start: 09-26-2021 End: 09-26-2021 ambulatory MICAH DÍAZ Facility:[facility] Start: 09-26-2021 End: 09-26-[address] [facility] Facility:[facility] Start: 09-26-2021 End: 09-26-2021 Patient encounter procedure [facility] Work Phone: Urology Comment on above: Urgency of urination (Primary Dx) Prolapse of vaginal vault after hysterectomy (Primary Dx); Stress incontinence; Rectocele Start: 09-20-2021 Orders Only Roxane zimmerman MD Work Phone: Urology Comment on above: Urge incontinence (P rimary Dx) Start: 09-18-2021 End: 09-18-2021 Patient encounter procedure [facility] Start: 08-15-2021 End: 08-15-[address] Micah Díaz Work Phone: [facility]-Radiology, [place] Start: 07-24-2021 End: 07-24-2021 ambulatory MICAH JOEUTZMAN Facility:[facility] Start: 07-24-2021 End: 07-24-2021 Patient encounter procedure Roxane Pineda MD Work Phone: Urology Comment on above: Vaginal enterocele ( Primary Dx); Urge incontinence; Urgency of urination; Rectocele Start: 05-14-2021 Non-patient / Non-visit Dr. Balbir Díaz Work Phone: [facility] Start: 05-14-2021 End: 05-14-[address] Micah Díaz Work Phone: [facility]-Cardiovascul ar Services Start: 05-08-2021 End: 05-08-[address] Micah Díaz Work Phone: [facility] Start: 10-22-2010 End: 10-24-2010 Patient encounter status Cassy Zuniga MD Work Phone: [facility] Work Phone: Procedures Date Procedure Procedure Detail Performing Clinician Start: 09-15-2024 MRI of joint of lowe r extremity Dr. Micah Díaz DO Work Phone: Start: 08-31-2024 Vitamin D, 25-hydrox y measurement Dr. Micah Díaz DO Work Phone: Comment on above: Vitamin D StatusDefi ciency: <20 ng/mL (50nmol/L)Insufficiency: 20-30 ng/mL (50-75 nmol/L)Sufficiency: 30-100 ng/mL (75-250 nmol/L)Toxicity: >100 ng/mL (>250 nmol/L) Start: 04-21-2023 Radex wrist complete minimum 3 views Saira Moore APRN.LEGAL PROJECT MANAGER Work Phone: Start: 2022 Cardiovascular stres s test using pharmacologic stress agent Dr. Micah Díaz Work Phone: Start: 06-10-2022 Plain x-ray of pelvi s and lower extremity Dr. Micah Díaz Work Phone: Start: 03-25-2022 Screening mammograph y bi 2-view breast inc cad Cassy Zuniga MD Work Phone: Start: 02-27-2022 X-ray of both feet Start: 09-26-2021 Urnls dip stick/tabl et rgnt auto w/o microscopy Roxane Pineda MD Work Phone: Start: 08-15-2021 Radiography of thora cic spine Dr. Micah Díaz Work Phone: Start: 08-15-2021 X-ray of lumbosacral spine Dr. Micah Díaz Work Phone: Start: 07-24-2021 BLADDER SCAN Roxane Pineda MD Work Phone: Start: 05-21-2016 End: 05-21-2016 TWIN Fairchild MD Start: 05-21-2016 End: 05-21-2016 Follow Up Appt 1 year Angel Fairchild MD Start: 07-11-2015 End: 07-11-2015 Dietary management education, guidance, and counseling Angel Fairchild MD Start: 05-19-2015 End: 05-19-2015 TWIN Fairchild MD Start: 05-19-2015 End: 05-19-2015 Follow Up Appt 1 year Angel Fairchild MD Start: 12-08-2014 End: 12-08-2014 TWIN Beltrán PA-C Work Phone: Start: 12-08-2014 End: 12-08-2014 Ecg routine ecg w/least 12 lds w/i&r Ileana Beltrán PA-C Work Phone: Start: 12-08-2014 End: 12-08-2014 Follow Up Appt 6 months Ileana keith PA-C Work Phone: Start: 05-12-2014 End: 05-13-2014 Documentation of current medications Angel Fairchild MD Start: 05-12-2014 End: 05-12-2014 Follow Up Appt 6 months Brigitte Allan Start: 05-12-2014 End: 05-12-2014 DAMASO Fairchild MD Start: 11-03-2013 End: 11-03-2013 TWIN Beltrán PA-C Work Phone: Start: 11-03-2013 End: 11-08-2013 [facility] Ileana Beltrán PA-C Work Phone: Start: 11-03-2013 End: 11-03-2013 Follow Up Appt 6 months Ileana keith PA-C Work Phone: Start: 04-30-2013 End: 04-30-2013 Follow Up Appt 6 months Brigitte Allan Start: 04-30-2013 End: 04-30-2013 DAMASO Fairchild MD Start: 09-29-2012 End: 09-29-2012 TWIN Beltrán PA-C Work Phone: Start: 09-29-2012 End: 10-01-2012 [facility] Ileana Beltrán PA-C Work Phone: Start: 09-29-2012 End: 09-29-2012 Follow Up Appt 6 months Ileana keith PA-C Work Phone: Start: 10-02-2011 End: 10-02-2011 Follow Up Appt 1 year Angel Fairchild MD Plan of Treatment Date Care Activity Detail Author Start: 02-02-2025 End: 02-02-2025 Patient encounter procedure Nocturia -[facility] Work Phone: Start: 01-26-2025 End: 01-26-2025 Patient encounter procedure Nocturia -[facility] Work Phone: Start: 01-11-2025 Registered Recurring Registered Recu rring -Physical Therapy Work Phone: Start: 01-07-2025 Non-patient / Non-visit Non-patient / Non-visit -[facility] Start: 05-19-2024 End: 05-19-2024 Patient encounter procedure 05/19/2024 1:50 PM EST Appointment Mammogram [address] [place] [address] Encounter for gynecological examination (general) (routine) without abnormal findings [Z01.419]; Encounter for screening mammogram for breast cancer [Z12.31] Mammogram Comment on above: Encounter for gyneco logical examination (general) (routine) without abnormal findings [Z01.419]; Encounter for screening mammogram for breast cancer [Z12.31] Start: 05-12-2024 End: 05-12-2024 Patient encounter procedure 05/12/2024 3:20 PM EST Office Visit OB/Gynecology [address] [place] [address] Cassy Zuniga MD [address] [place] [address] Pelvic/breast exam OB/Gynecology Comment on above: Pelvic/breast exam Start: 04-14-2024 Advance Directive Discussion Advance Directive Discussion [facility] Start: 12-14-2023 Covid-19 Vaccine () Covid-19 Vaccine () [facility] Start: 12-14-2023 Covid-19 Vaccine () Covid-19 Vaccine () [facility] Start: 12-14-2023 Influenza vaccination Influenza Vacc ine (#1) [facility] Start: 05-25-2023 Covid-19 Vaccine () Covid-19 Vaccine () [facility] Start: 04-14-2023 Advance Directive Discussion Advance Directive Discussion [facility] Start: 04-14-2023 Behavioral Health Screening Behavioral Health Screening [facility] Start: 03-27-2023 BP CONTROLLED (<130/80) BP CONTROLLE D (<130/80) [facility] Start: 12-24-2022 Patient discharge [facility] Start: 12-13-2022 Covid-19 Vaccine ( season) Covid-19 Vaccine ( season) [facility] Start: 12-13-2022 Influenza vaccination Influenza Vacc ine (#1) [facility] Start: 11-01-2022 Patient discharge [facility] Start: 10-03-2022 Patient referral [facility] Work Phone: Start: 09-26-2022 BP CONTROLLED (<130/80) BP CONTROLLE D (<130/80) [facility] Start: 04-14-2022 Advance Directive Discussion Advance Directive Discussion [facility] Start: 04-14-2022 Depression Assessment Depression Ass essment [facility] Start: 12-13-2021 Influenza vaccination INFLUENZA (#1) [facility] Start: 09-20-2021 COVID-19 VACCINE (5 - Booster for Pfizer series) COVID-19 VACCINE (5 - Booster for Pfizer series) [facility] Start: 05-20-2021 COVID-19 VACCINE (4 - Booster for Pfizer series) COVID-19 VACCINE (4 - Booster for Pfizer series) [facility] Start: 04-14-2021 ADVANCE DIRECTIVE DISCUSSION ADVANCE DIRECTIVE DISCUSSION [facility] Start: 04-14-2021 DEPRESSION ASSESSMENT DEPRESSION ASS ESSMENT [facility] Start: 2019 RSV Vaccine (1 - 1-d ose 75+ series) RSV Vaccine (1 - 1-dose 75+ series) [facility] Start: 05-22-2017 End: 05-22-2017 Appointment Appointment [facility] Work Phone: Start: 05-21-2016 End: 05-21-2016 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 [facility] Work Phone: Start: 05-21-2016 End: 05-21-2016 Follow Up Appt 1 year Follow Up Appt 1 year [facility] Work Phone: Start: 07-12-2015 End: 07-12-2015 Physical Therapy General Physical Therapy General Rehab Services, [address] [place] [address], [id number] [facility] Work Phone: Start: 05-19-2015 End: 05-19-2015 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 [facility] Work Phone: Start: 05-19-2015 End: 05-19-2015 Follow Up Appt 1 year Follow Up Appt 1 year [facility] Work Phone: Start: 12-08-2014 End: 12-08-2014 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 [facility] Work Phone: Start: 12-08-2014 End: 12-08-2014 Ecg routine ecg w/least 12 lds w/i&r EKG (In office) [facility] Work Phone: Start: 12-08-2014 End: 12-08-2014 Follow Up Appt 6 months Follow Up Appt 6 months [facility] Work Phone: Start: 12-08-2014 End: 12-08-2014 Follow Up Appt Other Follow Up Appt Other [facility] Work Phone: Start: 05-12-2014 End: 05-12-2014 Follow Up Appt 6 months Follow Up Appt 6 months [facility] Work Phone: Start: 05-12-2014 End: 05-12-2014 MMM MMM [facility] Work Phone: Start: 11-03-2013 End: 11-03-2013 HEAD START TEACHER TWIN [facility] Work Phone: Start: 11-03-2013 End: 11-03-2013 Echocardiography Echocardiogram (complete) [facility] Work Phone: Start: 11-03-2013 End: 11-03-2013 Follow Up Appt 6 months Follow Up Appt 6 months [facility] Work Phone: Start: 10-28-2013 DIABETES SCREEN DIABETES SCREEN [facility] Start: 10-28-2013 Diabetes Screening Diabetes Screenin g [facility] Start: 04-30-2013 End: 04-30-2013 Follow Up Appt 6 months Follow Up Appt 6 months [facility] [employer] Work Phone: Start: 04-30-2013 End: 04-30-2013 MMM MMM [facility] Work Phone: Start: 09-29-2012 End: 09-29-2012 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 [facility] Work Phone: Start: 09-29-2012 End: 09-29-2012 Echocardiography Echocardiogram (complete) [facility] Work Phone: Start: 09-29-2012 End: 09-29-2012 Follow Up Appt 6 months Follow Up Appt 6 months [facility] Work Phone: Start: 10-28-2011 Pneumococcal Vaccine : 50+ (2 of 2 - PCV) Pneumococcal Vaccine: 50+ (2 of 2 - PCV) [facility] Start: 10-28-2011 Pneumococcal Vaccine : 65+ (2 - PCV) Pneumococcal Vaccine: 65+ (2 - PCV) [facility] Start: 10-28-2011 Pneumococcal Vaccine : 65+ (2 of 2 - PCV) Pneumococcal Vaccine: 65+ (2 of 2 - PCV) [facility] Start: 10-28-2011 PNEUMOCOCCAL: 65+ (2 - PCV) PNEUMOCOCCAL: 65+ (2 - PCV) [facility] Start: 10-02-2011 End: 10-02-2011 Follow Up Appt 1 year Follow Up Appt 1 year [facility] [employer] [employer] Work Phone: Start: 2009 BONE DENSITY BONE DENSITY [facility] Start: 2009 Bone Density Screening Bone Density Screening [facility] Start: 2009 Screening for osteoporosis Bone Dens ity Screening [facility] Start: 2004 RSV Vaccine (1 - 1-d ose 60+ series) RSV Vaccine (1 - 1-dose 60+ series) [facility] Start: 1994 SHINGRIX VACCINE (1 of 2) KUMAR GRIX VACCINE (1 of 2) [facility] Start: 1963 Urine microalbumin profile [facility] Start: 1962 ANNUAL PCP TEAM AIRCRAFT ENGINE SPECIALIST CALLIE DISEASE VISIT ANNUAL PCP TEAM CHRONIC DISEASE VISIT [facility] Start: 1962 BP CONTROLLED (<130/80) BP CONTROLLE D (<130/80) [facility] Start: 1962 Depression Screening Depression Scre ening [facility] Start: 1962 HEPATITIS C SCREENING HEPATITIS C [facility] Start: 1962 Hepatitis C screening Hepatitis C [facility] Start: 1956 Adult depression scr eening assessment DEPRESSION SCREENING [facility] End: 06-17-2025 DBT Breast - bilateral screening KAJAL SCREENING W SYBIL Radiology Routine Encounter for gynecological examination (general) (routine) without abnormal findings Encounter for screening mammogram for breast cancer 1 Occurrences starting 05/18/2024 until 06/17/2025 [facility] Work Phone: Comment on above: 1 Occurrences starti ng 05/18/2024 until 06/17/2025 DBT Breast - bilater al screening KAJAL SCREENING W SYBIL Radiology Routine Encounter for gynecological examination (general) (routine) without abnormal findings Encounter for screening mammogram for breast cancer 05/19/2024 2:22 PM EST [facility] Work Phone: H&P for surgery H&P FOR SURGERY Procedures Routine Prolapse of vaginal vault after hysterectomy Stress incontinence Rectocele Ordered: 10/13/2021 [facility] Work Phone: Comment on above: Ordered: 10/13/2021 End: 04-21-2023 KAJAL SCREENING KAJAL SCREENING Radiology Routine Encounter for screening mammogram for malignant neoplasm of breast 1 Occurrences starting 03/22/2022 until 04/21/2023 [facility] Work Phone: Comment on above: 1 Occurrences starti ng 03/22/2022 until 04/21/2023 End: 04-25-2025 MG Breast Screening KAJAL SCREENING Radiology Routine Encounter for screening mammogram for malignant neoplasm of breast 1 Occurrences starting 03/29/2024 until 04/25/2025 [facility] Work Phone: Comment on above: 1 Occurrences starti ng 03/29/2024 until 04/25/2025 Patient referral [facility] Work Phone: URODYNAMICS URODYNAMICS Proc edures Routine Urge incontinence Ordered: 09/20/2021 [facility] Work Phone: Comment on above: Ordered: 09/20/2021 [facility] Immunizations Immunization Date Immunization Notes Care Provider Fa cility 01-14-2023 influenza virus vacc ine, unspecified formulation [facility] [place] Work Phone: [facility] 12-21-2021 influenza virus vacc ine, unspecified formulation Screen Wstr [facility] 12-25-2020 influenza, high-dose , quadrivalent vaccine (FLUZONE HIGH DOSE QUADRIVALENT) Roxane Pineda MD Work Phone: [facility] 10-27-2010 pneumococcal polysaccharide vaccine, 23 valent Roxane Pineda MD Work Phone: [facility] Payers Date Payer Category Payer Self-pay [id number] 2017 Private Health Insurance [employer] A ETNA MEDICARE SUPPLEMENT [id number] 2017-Present [phone] [address] [address] [place] [address] Indemnity [id number] 2017 Private Health Insurance [id number] 2017 Private Health Insurance [facility] [id number] 2011 Unknown [id number] 2009 Medicare MEDICARE MEDICAR E A AND B [id number] 2009-Present [phone] [address] [address] [place] [address] Medicare [id number] 2009 Medicare MEDICARE MEDICAR E A AND B [id number] 2009-Present [phone] [address] [address] [place] [address] Medicare [id number] 2009 Medicare [id number] Unknown [id number] 2.16.840.1.802886.3.579 .2.462 Unknown [id number] 2.16.840.1.156006.3.579 .2.462 Unknown [id number] 2.16.840.1.371099.3.579 .2.462 Unknown [id number] 2.16.840.1.840582.3.579 .2.462 Unknown [id number] 2.16.840.1.469151.3.579 .2.462 Unknown [id number] 2.16.840.1.195012.3.579 .2.462 Unknown [id number] 2.16.840.1.891476.3.579 .2.462 Unknown [id number] 2.16.840.1.260579.3.579 .2.462 Unknown [id number] 2.16.840.1.958991.3.579 .2.462 Unknown [id number] 2.16.840.1.284726.3.579 .2.462 Unknown [id number] 2.16.840.1.084768.3.579 .2.462 Unknown [id number] 2.16.840.1.443274.3.579 .2.462 Unknown [id number] 2.16.840.1.660436.3.579 .2.462 Unknown [id number] 2.16.840.1.128342.3.579 .2.462 Unknown [id number] 2.16.840.1.617813.3.579 .2.462 Unknown [id number] 2.16.840.1.549523.3.579 .2.462 Unknown [id number] 2.16.840.1.158001.3.579 .2.462 Unknown [id number] 2.16.840.1.526738.3.579 .2.462 Unknown [id number] 2.16.840.1.350377.3.579 .2.462 Unknown [id number] 2.16.840.1.369842.3.579 .2.462 Unknown [id number] 2.16.840.1.765861.3.579 .2.462 Unknown [id number] 2.16.840.1.419629.3.579 .2.462 Unknown [id number] 2.16.840.1.727368.3.579 .2.462 Unknown [id number] 2.16.840.1.601964.3.579 .2.462 Unknown [id number] 2.16.840.1.910026.3.579 .2.462 Unknown [id number] 2.16.840.1.497692.3.579 .2.462 Social History Date Type Detail Facility Start: 10-22-2010 End: 04-25-2023 Tobacco smoking status [facility] Never smoked tobacco [facility] Work Phone: Start: 07-24-2021 End: 05-18-2024 Alcohol intake Current drinker of alcohol (finding) [facility] Start: 04-01-2019 History SDOH Alcohol Frequency 2 [facility] Start: 04-01-2019 History SDOH Alcohol Std Drinks 1 [facility] Start: 02-24-2018 History SDOH Alcohol Comment Socially [facility] Start: 04-01-2019 History SDOH Social Connections Phone 5 [facility] Start: 04-01-2019 History SDOH Social Connections Get Together 4 [facility] Start: 04-01-2019 History SDOH Physica l Activity DPW 0 [facility] Start: 1945 Sex Assigned At Not on file [facility] Start: 05-08-2021 End: 04-25-2023 Tobacco smoking status NHIS Unknown if ever smoked [facility] Start: 1945 Sex Assigned At Female [facility] Start: 10-22-2010 End: 12-26-2021 Tobacco use and exposure Smokeless tobacco non-user [facility] Start: 11-30-2021 End: 12-10-2021 Exposure to SARS-CoV-2 (event) Not sure [facility] Start: 04-01-2019 End: 05-18-2024 History of Social function [facility] Start: 04-01-2019 End: 05-18-2024 Social connection and isolation panel [facility] Do you belong to any clubs or organizations such as sikhism groups, unions, fraternal or athletic groups, or school groups? Yes [facility] Are you now , , , , never or living with a partner? [facility] How often to you hav e a drink containing alcohol? Monthly or less [facility] How many standard dr inks containing alcohol do you have on a typical day? 1 or 2 [facility] How often do you hav e 6 or more drinks on 1 occasion? Never [facility] How hard is it for y ou to pay for the very basics like food, housing, medical care, and heating Not very hard [facility] Do you feel stress - tense, restless, nervous, or anxious, or unable to sleep at night because your mind is troubled all the time - these days [OSQ] Not at all [facility] (I/We) worried wheth er (my/our) food would run out before (I/we) got money to buy more. Never true [facility] In the past 12 month s, has lack of transportation kept you from medical appointments or from getting medications? No [facility] Start: 06-29-2024 End: 07-27-2024 Sex Female (finding) [facility] Medical Equipment Procedure Code Equipment Code Equipment Original Text Equipment Identifier Dates Valve Aort 23mm C-E Prm [facility] - [id number] Start: 10-23-2010 Comment on above: Description: CE 2700 -23mm used for aortic valve replacement [facility] Ppro [id number] Start: 12-10-2021 Kenyatta Horta Bx/5 [id number] Start: 12-10-2021 Clinical Notes 10-23-2010 to 01-26-2025 Note Date & Type Note Facility 01-26-2025 Progress note [facility] 01-20-2025 Progress note [facility] 01-19-2025 Discharge summary Note Date/Time January 19, 2025 5:17pm [facility] Physical [facility] [address] [place] [address] / REHABILITATION SERVICES DISCHARGE SUMMARY MR#: [id number] Acct: [id number] Name: FABRICE MOON Rep #: [id number] : 1945 79 From: Maryana Garcia Referring Dr.: ANKIT Medeiros Status : REG RCR Insurance: MEDICARE PART A B AETNA SR SUPPLEMENT INS Discharge Summary D/C summary: It has been my pleasure to treat FABRICE MOON referred by Dr. Christiano Medeiros, ANKIT, with the diagnosis of R Post tib tendonitis and dysfunction and arthritis for a total of 8 visit(s). Discharge Date: 01/19/25 Please see the following information for a summary of their discharge status. Subjective Subjective: She got new shoes, they are ugly but she feels comfortable. She reports that her foot is a lot better. Her back has been bothering her due to walking weird. Pain R ankle pain: Pain Intensity (Out of 10): 1 Overall Improvement % Improvement: 65 Objective Objective/Function: R ankle AROM:4 degrees DF, 50 degrees PF, 18 INV, 12 EV L ankle AROM: DF 4, PF 40, INV 14, EV 4) LE MMT: R ankle DF 9.3 and PF 10.8, INV 5.2 and EV 7.4 L ankle DF 5.9, 10.5, 5.7 and 4). Goals Goal 1:: I HEP Goal Progress: Goal Met Goal 2:: Be able to walk with no antalgic gait and swing leg passes stance leg Bwith least restrictive device Goal 3:: Increase R ankle AROM (at the time of the eval: R ankle AROM:2 degreesDF, 50 degrees PF, 18 INV, 6 EV L ankle AROM: DF 4, PF 40, INV 14, EV 4) Goal 4:: Increase R ankle strength (at the time of the eval: LE MMT: R ankle DF 6.2 and PF 8, INV 3.9 and EV 3.5 L ankle DF 5.9, 10.5, 5.7 and 4). Plan Plan: 2X/ week for 4 weeks for R ankle stretching, strengthening, balance, gait training and US to the R post tib insertion with HEP HEP: seated heel and toe raises, seated soleus stretch with strap and seated gastroc stretch with strap D/C Information Discharge Comments: DC PT to HEP d/c sentence: If there are questions or concerns regarding this patient's physical therapy, please feel free to call me at [phone]. Thank you for the referral of thispatient. Sincerely, Maryana Guerrero, SPENCER Balance/Gait/Functional tests Balance/Special Test Scores Lower Extremity Functional Score: 46 Improvement % Improvement: 65 <Electronically signed by Maryana Guerrero MPT> 01/19/25 [id number] CC: ANKIT Medeiros; Dr. Micah Díaz, DO ~ Signed [facility] Work Phone: 1(465) 381-542710-08-2025 Discharge summary [facility] [address] [place] [address] [address] [place] [address] / REHABILITATION SERVICES DISCHARGE SUMMARY MR#: [id number] Acct: [id number] Name: FABRICE MOON Rep #: [id number] : 1945 79 From: Maryana Guerrero MP T Referring Dr.: ANKIT Medeiros Status : REG RCR Insurance: MEDICARE PART A B AETNA SR SUPPLEMENT INS Discharge Summary D/C summary: It has been my pleasure to treat FABRICE MOON referred by Dr. Christiano Medeiros DPM, with the diagnosis of R Post tib tendonitis and dysfunction and arthritis for a total of 8 visit(s). Discharge Date: 01/19/25 Please see the following information for a summary of their discharge status. Subjective Subjective: She got new shoes, they are ugly but she feels comfortable. She reports that her foot is a lot better. Her back has been bothering her due to walking weird. Pain R ankle pain: Pain Intensity (Out of 10): 1 Overall Improvement % Improvement: 65 Objective Objective/Function: R ankle AROM:4 degrees DF, 50 degrees PF, 18 INV, 12 EV L ankle AROM: DF 4, PF 40, INV 14, EV 4) LE MMT: R ankle DF 9.3 and PF 10.8, INV 5.2 and EV 7.4 L ankle DF 5.9, 10.5, 5.7 and 4). Goals Goal 1:: I HEP Goal Progress: Goal Met Goal 2:: Be able to walk with no antalgic gait and swing leg passes stance leg Bwith least restrictive device Goal 3:: Increase R ankle AROM (at the time of the eval: R ankle AROM:2 degreesDF, 50 degrees PF, 18 INV, 6 EV L ankle AROM: DF 4, PF 40, INV 14, EV 4) Goal 4:: Increase R ankle strength (at the time of the eval: LE MMT: R ankle DF 6.2 and PF 8, INV 3.9 and EV 3.5 L ankle DF 5.9, 10.5, 5.7 and 4). Plan Plan: 2X/ week for 4 weeks for R ankle stretching, strengthening, balance, gait training and US to the R post tib insertion with HEP HEP: seated heel and toe raises, seated soleus stretch with strap and seated gastroc stretch with strap D/C Information Discharge Comments: DC PT to HEP d/c sentence: If there are questions or concerns regarding this patient's physical therapy, please feel free to call me at [phone]. Thank you for the referral of thispatient. Sincerely, Maryana Guerrero, MPT Balance/Gait/Functional tests Balance/Special Test Scores Lower Extremity Functional Score: 46 Improvement % Improvement: 65 01/19/25 [id number] CC: ANKIT Medeiros; Dr. Micah Díaz, DO ~ Signed [facility]08-26-2025 Progress note Author Lynn Christensen [facility] Note Date/Time December 07, 2024 9: 05pm [facility] [address], [address] [place] [address] OFFICE VISIT Date of Service: 12/07/24 MR#: [id number] Acct: [id number] Name: FABRICE MOON Rep #: [id number] : 1945 Provider: Dr. Kirk Christensen MD Age/Sex: 79/F Location: [facility] Status: Signed Intake Vital Signs 07/20/24 11:01 12/07/24 15:31 Height 5 ft 5 in 5 ft 5 in Weight: 178 lb BMI 29.6 BP 120/78 Pulse 60 Temp 98 F Intake Visit Reasons: PTNS Chief Complaint: PTNS Ssis Architect Required: No Is patient in pain?: No Allergies amitriptyline (From Elavil) Adverse Reaction (Severe, Verified 07/20/24 11:38) Unknown tramadol Adverse Reaction (Severe, Verified 07/20/24 11:38) Unknown valdecoxib (From Bextra) Adverse Reaction (Severe, Verified 07/20/24 11:38) Unknown amlodipine Adverse Reaction (Intermediate, Verified 07/20/24 11:38) Foot and ankle edema Have you fallen in the past year?: No PFSH Medical History PAF (paroxysmal atrial fibrillation) New onset atrial fibrillation Fibromyalgia Obesity Hypothyroidism Nonrheumatic aortic (valve) stenosis Bicuspid aortic valve Hyperlipidemia Obstructive sleep apnea Surgical History History of ankle surgery Hx of shoulder surgery History of foot surgery History of lumbar surgery History of bladder suspension procedure History of hysterectomy History of left heart catheterization (09/06/10) History of aortic valve replacement with bioprosthetic valve (10/23/10) Family History Father Lung cancer Mother Cancer kidney cancer Heart disease PPM Social History Smoking Status: Never smoker HPI HPI Urology Chief Complaint: PTNS Details: FABRICE MOON, is a 79 F. She is voiding about 8-10 time during the day and 4-6 times at night. The incontinence is not improving. She is going through 6 pads a day. She is continuing to work on level one management with diet, fluid control and bladder training. She is not having any issues with her skin or ankle after treatments. ROS Const Constitutional: No chills, fatigue, fever(s), headache(s), night sweats, weakness, weight change, abnormal sleep pattern or change in appetite Eyes Eyes: No change in vision ENT ENT: No headache(s) or dry mouth Resp Respiratory: No cough, chest congestion, shortness of breath or wheezing Cardio Cardiology: Positive for other (No chest pain.); No shortness of breath, irregular heart rhythm or lightheadedness Gastro GI: Positive for other (No nausea.); No abdominal pain, change in bowel habits, constipation, diarrhea or vomiting Musc Musculoskeletal: No abnormal gait Skin Skin: No yellowing of the eye, lesions, itchy eyes, rash or skin ulcer Neuro Neurology: No abnormal gait, confusion, dizziness, weakness, headache(s) or memory loss Psych Psychiatric: No abnormal sleep pattern, No change in appetite, No confusion and No memory loss Endo Endocrine: No fatigue, increased thirst/drinking or weight change Aller/Imm Allergy/Immunologic: No itchy eyes or wheezing Evan/Lymp Hematologic/Lymphatic: No easy bleeding, easy bruising or enlarged lymph nodes Exam Const General: cooperative, healthy appearing, comfortable and no acute distress [facility] Head: normocephalic and atraumatic Ears: hearing grossly normal bilaterally and external ears normal Nose: external nose normal Eyes General: appearance normal, both eyes and all related structures Neck Neck: normal visual inspection and trachea midline Chest Chest palpation & inspection: normal inspection of the chest Resp Effort & Inspection: normal respiratory effort, able to speak in complete sentences and symmetric chest movement Cardio Rate: regular rate GI Inspection: normal to inspection Palpation: soft and nontender General: No CVA tenderness Skin General: no rashes or lesions noted Neuro General: patient alert, patient awake, patient oriented x3 and CN's II-XI intactbilaterally Extrem General: normal to inspection Psych Appearance: grossly normal and well kempt Mental Status: mental status grossly normal Office Procedures PTNS Procedure Completed: Yes PTNS: Percutaneous tibial nerve stimulation (PTNS) was prescribed for overactive bladder symptoms of urinary urgency, frequency and urge incontinence.?The needleelectrode was inserted into the lower, inner aspect of the?left leg.?The surfaceelectrode was placed on the inside arch of the foot on the treatment leg.?The lead set was connected to the stimulator, and the needle electrode clip was connected to the needle electrode.?The stimulator that produces an adjustable electrical pulse that travels to the sacral nerve plexus via the tibial nerve was adjusted to a setting of 18. The voiding diary or patient's symptoms were reviewed prior the start of treatment.? Coding Level of Care Code No Charge Diagnoses Nocturia R35.1 Urge incontinence N39.41 Assessment and Plan Assessment and Plan (1) Nocturia: Status: Acute (2) Urge incontinence: Status: Acute Orders: Orders PTNS Today N39.41 - Urge incontinence, R35.1 - Nocturia Plan continue level one management continue PTNS continue [facility] Clinical Quality Measures Falls Risk Screening/Assistive Devices Have you fallen in the past year?: No 12/07/242104 <Electronically signed by Lynn Christensen MD> Date _ Lynn Christensen MD Cosigner Signature: Date (if applicable) CC: ~ [facility] Work Phone: 1(810) 640-177908-26-2025 [facility] [address], [address] [place] [address] OFFICE VISIT Date of Service: 12/07/24 MR#: [id number] Acct: [id number] Name: FABRICE MOON Rep #: [id number] : 1945 Provider: Dr. Kirk Christensen MD Age/Sex: 79/F Location: [facility] Status: Signed Intake Vital Signs 07/20/24 11:01 12/07/24 15:31 Height 5 ft 5 in 5 ft 5 in Weight: 178 lb BMI 29.6 BP 120/78 Pulse 60 Temp 98 F Intake Visit Reasons: PTNS Chief Complaint: PTNS Ssis Architect Required: No Is patient in pain?: No Allergies amitriptyline (From Elavil) Adverse Reaction (Severe, Verified 07/20/24 11:38) Unknown tramadol Adverse Reaction (Severe, Verified 07/20/24 11:38) Unknown valdecoxib (From Bextra) Adverse Reaction (Severe, Verified 07/20/24 11:38) Unknown amlodipine Adverse Reaction (Intermediate, Verified 07/20/24 11:38) Foot and ankle edema Have you fallen in the past year?: No PFSH Medical History PAF (paroxysmal atrial fibrillation) New onset atrial fibrillation Fibromyalgia Obesity Hypothyroidism Nonrheumatic aortic (valve) stenosis Bicuspid aortic valve Hyperlipidemia Obstructive sleep apnea Surgical History History of ankle surgery Hx of shoulder surgery History of foot surgery History of lumbar surgery History of bladder suspension procedure History of hysterectomy History of left heart catheterization (09/06/10) History of aortic valve replacement with bioprosthetic valve (10/23/10) Family History Father Lung cancer Mother Cancer kidney cancer Heart disease PPM Social History Smoking Status: Never smoker HPI HPI Urology Chief Complaint: PTNS Details: FABRICE MOON, is a 79 F. She is voiding about 8-10 time during the day and 4-6 times at night. The incontinence is not improving. She is going through 6 pads a day. She is continuing to work on level one management with diet, fluid control and bladder training. She is not having any issues with her skin or ankle after treatments. ROS Const Constitutional: No chills, fatigue, fever(s), headache(s), night sweats, weakness, weight change, abnormal sleep pattern or change in appetite Eyes Eyes: No change in vision ENT ENT: No headache(s) or dry mouth Resp Respiratory: No cough, chest congestion, shortness of breath or wheezing Cardio Cardiology: Positive for other (No chest pain.); No shortness of breath, irregular heart rhythm or lightheadedness Gastro GI: Positive for other (No nausea.); No abdominal pain, change in bowel habits, constipation, diarrhea or vomiting Musc Musculoskeletal: No abnormal gait Skin Skin: No yellowing of the eye, lesions, itchy eyes, rash or skin ulcer Neuro Neurology: No abnormal gait, confusion, dizziness, weakness, headache(s) or memory loss Psych Psychiatric: No abnormal sleep pattern, No change in appetite, No confusion and No memory loss Endo Endocrine: No fatigue, increased thirst/drinking or weight change Aller/Imm Allergy/Immunologic: No itchy eyes or wheezing Evan/Lymp Hematologic/Lymphatic: No easy bleeding, easy bruising or enlarged lymph nodes Exam Const General: cooperative, healthy appearing, comfortable and no acute distress [facility] Head: normocephalic and atraumatic Ears: hearing grossly normal bilaterally and external ears normal Nose: external nose normal Eyes General: appearance normal, both eyes and all related structures Neck Neck: normal visual inspection and trachea midline Chest Chest palpation & inspection: normal inspection of the chest Resp Effort & Inspection: normal respiratory effort, able to speak in complete sentences and symmetric chest movement Cardio Rate: regular rate GI Inspection: normal to inspection Palpation: soft and nontender General: No CVA tenderness Skin General: no rashes or lesions noted Neuro General: patient alert, patient awake, patient oriented x3 and CN's II-XI intactbilaterally Extrem General: normal to inspection Psych Appearance: grossly normal and well kempt Mental Status: mental status grossly normal Office Procedures PTNS Procedure Completed: Yes PTNS: Percutaneous tibial nerve stimulation (PTNS) was prescribed for overactive bladder symptoms of urinary urgency, frequency and urge incontinence.?The needleelectrode was inserted into the lower, inneraspect of the?left leg.?The surfaceelectrode was placed on the inside arch of the foot on the treatment leg.?The lead set was connected to the stimulator, and the needle electrode clip was connected to the needle electrode.?The stimulator that produces an adjustable electrical pulse that travels tothe sacral nerve plexus via the tibial nerve was adjusted to a setting of 18. The voiding diary or patient's symptoms were reviewed prior the start of treatment.? Coding Level of Care Code No Charge Diagnoses Nocturia R35.1 Urge incontinence N39.41 Assessment and Plan Assessment and Plan (1) Nocturia: Status: Acute (2) Urge incontinence: Status: Acute Orders: Orders PTNS Today N39.41 - Urge incontinence, R35.1 - Nocturia Plan continue level one management continue PTNS continue Keily Clinical Quality Measures Falls Risk Screening/Assistive Devices Have you fallen in the past year?: No 12/07/242104 > Date _ Lynn Christensen MD Cosigner Signature: Date (if applicable) CC: ~ [facility]08-26-2025 Evaluation note* Diagnosis Onset Date Resolution Status Admit Date Nocturia acute December 07, 025 2:44pm Urge incontinence acute December 07, 2024 2:44pm [facility] Work Phone: 1(347) 723-279808-26-2025 Evaluation note* Diagnosis Onset Date Resolution Status Admit Date Nocturia acute December 07, 2 025 2:44pm Urge incontinence acute December 07, 2024 2:44pm Nocturia acute December 15, 2024 10:58am Urge incontinence acute Septemb er 2024 10:58am [facility] Work Phone: 1([phone] 554-481608-26-2025 Evaluation note* Diagnosis Onset Date Resolution Status Admit Date Nocturia acute December 07, 2 025 2:44pm Urge incontinence acute December 07, 2024 2:44pm Nocturia acute December 15, 2024 10:58am Urge incontinence acute Septemb er 2024 10:58am Nocturia acute December 10:50am Urge incontinence acute Septemb er 2024 10:50am [facility] Work Phone: 1(704) 170-490608-26-2025 Evaluation note* Diagnosis Onset Date Resolution Status Admit Date Nocturia acute December 07, 025 2:44pm Urge incontinence acute December 07, 2024 2:44pm Nocturia acute December 15, 2024 10:58am Urge incontinence acute Septemb er 2024 10:58am Nocturia acute December 10:50am Urge incontinence acute Septemb er 2024 10:50am Nocturia acute December 11:15am Urge incontinence acute Septemb er 2024 11:15am [facility] Work Phone: 1(855) 572-627908-26-2025 Evaluation note* Diagnosis Onset Date Resolution Status Admit Date Nocturia acute December 07, 2:44pm Urge incontinence acute December 07, 2024 2:44pm Nocturia acute December 15, 2024 10:58am Urge incontinence acute Septemb er 2024 10:58am Nocturia acute December 10:50am Urge incontinence acute Septemb er 2024 10:50am Nocturia acute December 11:15am Urge incontinence acute Septemb er 2024 11:15am Nocturia acute December 10:50am Urge incontinence acute Septemb er 2024 10:50am [facility] Work Phone: [phone] 283-223708-26-2025 Evaluation note* Diagnosis Onset Date Resolution Status Admit Date Nocturia acute December 07, 2:44pm Urge incontinence acute December 07, 2024 2:44pm Nocturia acute December 15, 2024 10:58am Urge incontinence acute Septemb er 2024 10:58am Nocturia acute December 10:50am Urge incontinence acute Septemb er 2024 10:50am Nocturia acute December 11:15am Urge incontinence acute Septemb er 2024 11:15am Nocturia acute December 10:50am Urge incontinence acute Septemb er 2024 10:50am Nocturia acute January 12 10:50am Urge incontinence acute January 12, 2025 10:50am [facility] Work Phone: 1([phone] 193-274008-26-2025 Evaluation note* Diagnosis Onset Date Resolution Status Admit Date Nocturia acute December 07, 2:44pm Urge incontinence acute December 07, 2024 2:44pm Nocturia acute December 15, 2024 10:58am Urge incontinence acute Septemb er 2024 10:58am Nocturia acute December 10:50am Urge incontinence acute Septemb er 2024 10:50am Nocturia acute December 11:15am Urge incontinence acute Septemb er 2024 11:15am Nocturia acute December 10:50am Urge incontinence acute Septemb er 2024 10:50am Nocturia acute January 12 10:50am Urge incontinence acute January 12, 2025 10:50am Nocturia acute January 19 10:51am Urge incontinence acute January 19, 2025 10:51am Adequate anticoagulation on anticoagulant therapy acute January 10:56am Essential hypertension acute Oc tober 2024 10:56am PAF (paroxysmal atrial fibrillation) acute January 20 10:56am Hyperlipidemia chronic January 10:56am History of aortic valve replacement with bioprosthetic valve October 23, 2010 resolved January 20, 2025 10:56am [facility] Work Phone: 1(293) 774-869108-26-2025 Evaluation note* Diagnosis Onset Date Resolution Status Admit Date Nocturia acute December 07, 2:44pm Urge incontinence acute December 07, 2024 2:44pm Nocturia acute December 15, 2024 10:58am Urge incontinence acute Septemb er 2024 10:58am Nocturia acute December 10:50am Urge incontinence acute Septemb er 2024 10:50am Nocturia acute December 11:15am Urge incontinence acute Septemb er 2024 11:15am Nocturia acute December 10:50am Urge incontinence acute Septemb er 2024 10:50am Nocturia acute January 12 10:50am Urge incontinence acute January 12, 2025 10:50am Nocturia acute January 19, 2 025 10:51am Urge incontinence acute January 19, 2025 10:51am Adequate anticoagulation on anticoagulant therapy acute January 10:56am Essential hypertension acute Oc tob2024 10:56am PAF (paroxysmal atrial fibrillation) acute January 20 10:56am Hyperlipidemia chronic January 10:56am History of aortic valve replacement with bioprosthetic valve October 23, 2010 resolved January 20, 2025 10:56am Nocturia acute January 26, 2025 10:49am Urge incontinence acute January 26, 2025 10:49am Nocturia acute February 02, 2025 10:49am Urge incontinence acute February 02, 2025 10:49am UTI (urinary tract infection) acute February 02 10:49am [facility] Work Phone: 1([phone]) 728-275404-08-2025 Evaluation note* Diagnosis Onset Date Resolution Status Admit Date Essential hypertension acute Ap 2024 11:18am PAF (paroxysmal atrial fibrillation) acute July 20, 2024 11:18am Hyperlipidemia chronic July 20, 2024 11:18am History of aortic valve replacement with bioprosthetic valve October 23, 2010 resolved July 20 11:18am [facility] Work Phone: 1(481) 862-734702-25-2025 Discharge summary Author Jamal Glover [facility] Note Date/Time June 08, 2024 6:00pm [facility] Physical Therapy Health[address] [place] [address] / REHABILITATION SERVICES DISCHARGE SUMMARY MR#: [id number] Acct: [id number] Name: FABRICE MOON Rep #: [id number] : [id number] 78 From: Cert. LONNIE RamseyT, OCS Referring Dr.: Dr. Rene Lomax MD Status: REG RCR Insurance: MEDICARE PART A B [employer] SR SUPPLEMENT INS Discharge Summary D/C summary: It has been my pleasure to treat FABRICE MOON referred by Dr. Rene Lomax MD, with the diagnosis of BACK PAIN for a total of 8 visit(s). Discharge Date: 06/08/24 Please see the following information for a summary of their discharge status. Subjective Subjective: Sees Dr Aguilera next month Pt had Tens Unit at home Injections have not helped Pain Left: Pain Intensity (Out of 10): 6 Right Back: Pain Intensity (Out of 10): 6 Overall Improvement % Improvement: 20 Objective Objective/Function: POSTURE: mild forward posture GAIT: reciprocal pattern mild forward posture NEURO: denies paresthesia/tingling PALAPTION: unremarkable MMT: quads/hams 4/5 ,hip flexion 4-/5 ,ankle 4/5 LUMBAR ROM: flexion min loss ,extension mod loss ,side glides mod loss FLEXABILITY: hamstrings min tight Goals Goal 1:: Patient to be I with back Goal Progress: Progressing Goal 2:: Patient to demonstrate 50% improvement with less pain and improved function Goal Progress: Progressing Goal 3:: Patient to improve lumbar ROM for function of recovery to put on shoes and ASDLS Goal Progress: Progressing Goal 4:: Patient improve back oswestry score by 5 points to improve QOL and function. Goal Progress: Progressing Goal Progress: Progressing Plan Plan: d/c to HEP D/C Information d/c sentence: If there are questions or concerns regarding this patient's physical therapy, please feel free to call me at [phone]. Thank you for the referral of thispatient. Sincerely, Jamal Glover, PT, Cert MDT, OCS Balance/Gait/Functional tests Balance/Special Test Scores Oswestry Low Back Score: 29 Improvement % Improvement: 20 <Electronically signed by Jamal Glover PT, Cert. MDT, OCS> 07/27/24 0810 CC: Dr. Rene Lomax MD; Dr. Micah Díaz, DO ~ CAROLA Signed [facility] Work Phone: 1([phone]) 658-240102-25-2025 Discharge summary [facility] [address] [place] [address] [address] [place] [address] / REHABILITATION SERVICES DISCHARGE SUMMARY MR#: [id number] Acct: [id number] Name: FABRICE MOON GRACE Rep #: [id number] : [id number] 78 From: Lakshmi Ramsey. MDT, OCS Referring Dr.: Dr. Rene Lomax MD Status: REG RCR Insurance: MEDICARE PART A B [employer] SR SUPPLEMENT INS Discharge Summary D/C summary: It has been my pleasure to treat FABRICE MOON referred by Dr. Rene Lomax MD, with the diagnosis of BACK PAIN for a total of 8 visit(s). Discharge Date: 06/08/24 Please see the following information for a summary of their discharge status. Subjective Subjective: Sees Dr Aguilera next month Pt had Tens Unit at home Injections have not helped Pain Left: Pain Intensity (Out of 10): 6 Right Back: Pain Intensity (Out of 10): 6 Overall Improvement % Improvement: 20 Objective Objective/Function: POSTURE: mild forward posture GAIT: reciprocal pattern mild forward posture NEURO: denies paresthesia/tingling PALAPTION: unremarkable MMT: quads/hams 4/5 ,hip flexion 4-/5 ,ankle 4/5 LUMBAR ROM: flexion min loss ,extension mod loss ,side glides mod loss FLEXABILITY: hamstrings min tight Goals Goal 1:: Patient to be I with back Goal Progress: Progressing Goal 2:: Patient to demonstrate 50% improvement with less pain and improved function Goal Progress: Progressing Goal 3:: Patient to improve lumbar ROM for function of recovery to put on shoes and ASDLS Goal Progress: Progressing Goal 4:: Patient improve back oswestry score by 5 points to improve QOL and function. Goal Progress: Progressing Goal Progress: Progressing Plan Plan: d/c to HEP D/C Information d/c sentence: If there are questions or concerns regarding this patient's physical therapy, please feel free to call me at [phone]. Thank you for the referral of thispatient. Sincerely, Jamal Glover, PT, Cert MDT, OCS Balance/Gait/Functional tests Balance/Special Test Scores Oswestry Low Back Score: 29 Improvement % Improvement: 20 07/27/24 0810 CC: Dr. Rene Lomax MD; Dr. Micah Díaz, DO ~ JLA Signed [facility]02-05-2025 History of Present illness Narrative* Ines Ortiz Mammo Tech - 05/19/2024 1:50 PM EST Radiology Service Progress Note PATIENT NAME: Fabrice Moon DATE OF SERVICE: May 19, 2024 TIME: 1:40 PM PATIENT IDENTITY VERIFICATION COMPLETED USING TWO (2) IDENTIFIERS: Name and Date of confirmedby patient verbally. FALL SCREENING: Has the patient had 2 falls in the last year or 1 fall with injury or currently using an Ambulatory Assistive Device (Walker, Cane, Wheelchair, Crutches, etc.)? No PATIENT GENDER DATA: Assigned female at . status: : No status:NO. PATIENT RELEVANT IMPLANT DATA REVIEWED: Not Applicable PATIENT PRESENTS WITH AN IMPLANTABLE OR ATTACHED DISCOUNT CLERK: No RADIOLOGY DEPARTMENT: Mammography PERIPHERAL IV DATA: Not applicable SIGNED BY: Parag Krishna May 19, 2024 1:40 PM documented in this encounterFirelands [facility]02-05-2025 NoteHNO ID: [id number] Author: INES ORTIZ Mammo Tech Service: ? Author Type: [employer] Type: Progress Notes Filed: 05/19/2024 13:41 Note Text: Radiology Service Progress Note PATIENT NAME: Fabrice Moon DATE OF SERVICE: May 19, 2024 TIME: 1:40 PM PATIENT IDENTITY VERIFICATION COMPLETED USING TWO (2) IDENTIFIERS: Name and Date of confirmed by patient verbally. FALL SCREENING: Has the patient had 2 falls in the last year or 1 fall with injury or currently using an Ambulatory Assistive Device (Walker, Cane, Wheelchair, Crutches, etc.)? No PATIENT GENDER DATA: Assigned female at . status: : No status: NO. PATIENT RELEVANT IMPLANT DATA REVIEWED: Not Applicable PATIENT PRESENTS WITH AN IMPLANTABLE OR ATTACHED DISCOUNT CLERK: No RADIOLOGY DEPARTMENT: Mammography PERIPHERAL IV DATA: Not applicable SIGNED BY: Parag Krishna May 19, 2024 1:40 [facility]02-04-2025 NoteHNO ID: [id number] Author: CASSY ZUNIGA MD Service: ? Author Type: Physician Type: Progress Notes Filed: 05/18/2024 14:25 Note Text: Jennifer is a 78 year old who presents for an annual gynecologic exam with complaints, OAB, sees Dr. Christensen for urogyn. . 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 Diarrhea Heartburn Hx of echocardiogram 05/14/2021 Myalgia and myositis, unspecified Other and unspecified hyperlipidemia was told to take statin 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 asymptomatic currently PMH - PAST MEDICAL HISTORY OF hiatal hernia PMH - PAST MEDICAL HISTORY OF mild aortic stenosis Unspecified hypothyroidism many years PAST SURGICAL HISTORY Procedure Laterality Date COLONOSCOPY FLX DX W/COLLJ SPEC WHEN PFRMD 2000, 12/2009 Colonoscopy EGD TRANSORAL BIOPSY SINGLE/MULTIPLE 06/27/2006 FOOT SURGERY HX 11/13/2011 left foot HEART SURGERY HX 10/23/2010 aortic valve replacement LAMINECTOMY W/O FFD 1/2 VERT SEG LUMBAR 04/14/1981 Laminectomy, lumbar LAPAROSCOPIC COLPOPEXY 12/10/2021 Dr Pineda LIG/TRNSXJ FLP TUBE ABDL/VAG APPR UNI/BI 04/14/1975 Tubal ligation PAST SURGICAL HISTORY OF 09/06/2005 heart cath PAST SURGICAL HISTORY OF 09/16/2005 RIVAS PAST SURGICAL HISTORY OF 10/12/2002 heart cath PAST SURGICAL HISTORY OF Back repair of hernited disc l-5 PAST SURGICAL HISTORY OF 12/10/2021 XI ROBOTIC LAPAROSCOPIC COLPOPEXY REPAIR RECTOCELE SEPARATE PROCEDURE 04/14/1994 with cystocele rectrocele SHOULDER SURGERY HX 04/14/2008 TOTAL ABDOMINAL HYSTERECT W/WO RMVL TUBE OVARY 04/14/1978 Hysterectomy, MIYA, ovaries remain FAMILY HISTORY Problem Relation Age of Onset Cancer Father lung, that went to brain Cancer Mother kidney Diabetes Maternal Aunt Diabetes Maternal Uncle Coronary Artery Disease Paternal Uncle multiple in 50's Prostate Cancer Brother No Known Problems Brother No Known Problems Brother Diabetes Maternal Grandmother Diabetes Maternal Grandfather Cancer Paternal Grandmother No Known Problems Paternal Grandfather SOCIAL HISTORY Social History Tobacco Use Smoking status: Never Smokeless tobacco: Never Vaping Use Vaping status: Never Used Substance Use Topics Alcohol use: Yes Comment: Socially Drug use: No SENSITIVE EXAM: The sensitive examination was discussed with the Patient or Patient's Authorized Resolute Professional. As applicable, any other physician, advance practice provider, medical student, or other health professional student that will be observing or involved in the sensitive examination for educational or training purposes was discussed with the Patient or Authorized Resolute Professional. The Patient or Authorized Resolute Professional has agreed to proceed with the sensitive examination. (Sensitive examination includes inspection and/or palpation of the breasts, pelvis, prostate and anorectal regions). EXAM: BP 148/74 Ht 5' 4.75 (1.65m) Wt 193 lb (87.5kg) BMI 32.35 kg/(m2). GENERAL: pleasant, female in no apparent distress H BREAST: soft, non-tender, symmetric, no dominant mass, normal nipple-areolar complex, no lymphadenopathy, and no nipple discharge CHEST: Normal inspiratory effort ABDOMEN: soft, non-tender, and no masses PELVIC: external genitalia normal, normal Bartholin's glands, urethra, [place]'s glands, no vulvar lesions, good vaginal support, physiologic discharge present, normal appearing perineal body and perianal region, cervix surgically absent BIMANUAL: no adnexal masses, non-tender, and uterus surgically absent RECTOVAGINAL: deferred. ASSESSMENT/PLAN: 1) Health maintenance: Pap/HPV screening no longer needed Mammogram ordered no need for annual exams. f/u PRN 2) Follow up one year or sooner as needed Cassy Zuniga [facility]02-04-2025 History of Present illness Narrative* Cassy Zuniga MD - 05/18/2024 1:48 PM EST Jennifer is a 78 year old who presents for an annual gynecologic exam with complaints, OAB, sees Dr. Christensen for urogyn. . 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 Diarrhea Heartburn Hx of echocardiogram 05/14/2021 Myalgia and myositis, unspecified Other and unspecified hyperlipidemia was told to take statin 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 asymptomatic currently PMH - PAST MEDICAL HISTORY OF hiatal hernia PMH - PAST MEDICAL HISTORY OF mild aortic stenosis Unspecified hypothyroidism many years PAST SURGICAL HISTORY Procedure Laterality Date COLONOSCOPY FLX DX W/COLLJ SPEC WHEN PFRMD 2000, 12/2009 Colonoscopy EGD TRANSORAL BIOPSY SINGLE/MULTIPLE 06/27/2006 FOOT SURGERY HX 11/13/2011 left foot HEART SURGERY HX 10/23/2010 aortic valve replacement LAMINECTOMY W/O FFD /2 VERT SEG LUMBAR 04/14/1981 Laminectomy, lumbar LAPAROSCOPIC COLPOPEXY 12/10/2021 Dr Pineda LIG/TRNSXJ FLP TUBE ABDL/VAG APPR UNI/BI 04/14/1975 Tubal ligation PAST SURGICAL HISTORY OF 09/06/2005 heart cath PAST SURGICAL HISTORY OF 09/16/2005 RIVAS PAST SURGICAL HISTORY OF 10/12/2002 heart cath PAST SURGICAL HISTORY OF Back repair of hernited disc l-5 PAST SURGICAL HISTORY OF 12/10/2021 XI ROBOTIC LAPAROSCOPIC COLPOPEXY REPAIR RECTOCELE SEPARATE PROCEDURE 04/14/1994 with cystocele rectrocele SHOULDER SURGERY HX 04/14/2008 TOTAL ABDOMINAL HYSTERECT W/WO RMVL TUBE OVARY 04/14/1978 Hysterectomy, MIYA, ovaries remain FAMILY HISTORY Problem Relation Age of Onset Cancer Father lung, that went to brain Cancer Mother kidney Diabetes Maternal Aunt Diabetes Maternal Uncle Coronary Artery Disease Paternal Uncle multiple in 50's Prostate Cancer Brother No Known Problems Brother No Known Problems Brother Diabetes Maternal Grandmother Diabetes Maternal Grandfather Cancer Paternal Grandmother No Known Problems Paternal Grandfather SOCIAL HISTORY Social History Tobacco Use Smoking status: Never Smokeless tobacco: Never Vaping Use Vaping status: Never Used Substance Use Topics Alcohol use: Yes Comment: Socially Drug use: No SENSITIVE EXAM: The sensitive examination was discussed with the Patient or Patient's Authorized Resolute Professional. As applicable, any other physician, advance practice provider, medical student, or other health professional student that will be observing or involved in the sensitive examination for educational or training purposes was discussed with the Patient or Authorized Resolute Professional. The Patient or Authorized Resolute Professional has agreed to proceed with the sensitive examination. (Sensitive examination includes inspection and/or palpation of the breasts, pelvis, prostate and anorectal regions). EXAM: BP 148/74 Ht 5' 4.75 (1.65m) Wt 193 lb (87.5kg) BMI 32.35 kg/(m^2). GENERAL: pleasant, female in no apparent distress H BREAST: soft, non-tender, symmetric, no dominant mass, normal nipple-areolar complex, no lymphadenopathy, and no nipple discharge CHEST: Normal inspiratory effort ABDOMEN: soft, non-tender, and no masses PELVIC: external genitalia normal, normal Bartholin's glands, urethra, [place]'s glands, no vulvar lesions, good vaginal support, physiologic discharge present, normal appearing perineal body and perianal region, cervix surgically absent BIMANUAL: no adnexal masses, non-tender, and uterus surgically absent RECTOVAGINAL: deferred. ASSESSMENT/PLAN: 1) Health maintenance: Pap/HPV screening no longer needed Mammogram ordered no need for annual exams. f/u PRN 2) Follow up one year or sooner as needed Cassy Zuniga MD documented in this encounterFire[facility]12-16-2024 Telephone encounter Note * Telephone Encounter - Bhumi Beavers RN - 03/29/2024 10:16 AM EST Pt notified and prefers to schedule pelvic/breast exam with RR since she has not been seen since 2020. Appt scheduled with RR 05/03/24. Bhumi Beavers RN [facility]12-16-2024 Miscellaneous Notes* Telephone Encounter - Bhumi Beavers RN - 03/29/2024 10:16 AM EST Pt notified and prefers to schedule pelvic/breast exam with RR since she has not been seen since 2020. Appt scheduled with RR 05/03/24. Bhumi Beavers, RN * Telephone Encounter - Cassy Zuniga MD - 03/29/2024 9:46 AM EST I would recommend as long as she feels up to doing the mammogram and her health status is such she would accept treatment for a cancer that is found she continue to do mammograms. Her PCP office can order for her. She doesn't have to come in for an annual but I would happily ssee herfor any problem visit if needed or she wants a Pelvic/breast exam please scheduel (any 20 min interpreter and translator slot) Cassy Irvin MD * Telephone Encounter - Em Gusman RN - 03/26/2024 10:27 AM EST Patient calling asking if Dr. Zuniga wants her to continue getting mammograms. Patients last mammogram was on 04/03/23. If mammogram is needed she will need an order. Patient also has not been seen in office since 2020. Do you want patient to be seen for annual exam? Patient aware provider is out of office until Friday. Em Gusman RN documented in this encounterFirelands [facility] Center12-16-2024 Telephone encounter Note * Telephone Encounter - Cassy Zuniga MD - 03/29/2024 9:46 AM EST I would recommend as long as she feels up to doing the mammogram and her health status is such she would accept treatment for a cancer that is found she continue to do mammograms. Her PCP office can order for her. She doesn't have to come in for an annual but I would happily ssee herfor any problem visit if needed or she wants a Pelvic/breast exam please scheduel (any 20 min interpreter and translator slot) Cassy Irvin MD [facility]12-13-2024 Telephone encounter Note* Telephone Encounter - Em Gusman RN - 03/26/2024 10:27 AM EST Patient calling asking if Dr. Zuniga wants her to continue getting mammograms. Patients last mammogram was on 04/03/23. If mammogram is needed she will need an order. Patient also has not been seen in office since 2020. Do you want patient to be seen for annual exam? Patient aware provider is out of office until Friday. Em Gusman RN [facility]01-08-2024 History of Present illness Narrative* Erica Hansno RT(R) - 04/21/2023 8:50 AM EST Radiology Service Progress Note PATIENT NAME: Fabrice Moon DATE OF SERVICE: April 21, 2023 TIME: 8:50 AM PATIENT IDENTITY VERIFICATION COMPLETED USING TWO (2) IDENTIFIERS: Name and Date of confirmedby patient verbally. FALL SCREENING: Has the patient had 2 falls in the last year or 1 fall with injury or currently using an Ambulatory Assistive Device (Walker, Cane, Wheelchair, Crutches, etc.)? No PATIENT GENDER DATA: Female. status: : No status: NO. PATIENT RELEVANT IMPLANT DATA REVIEWED: Yes RADIOLOGY DEPARTMENT: General X-ray: Exam(s) Completed: Upper Extremity X- Ray(s): Wrist, left PERIPHERAL IV DATA: Not applicable SIGNED BY: RT Abby(R) April 21, 2023 8:50 AM documented in this encounterFirelands Regional Medical Center12-22-2023 Miscellaneous Notes* Letter - Coordinator, Mammography - 04/04/2023 9:25 AM EST April 04, 2023 PID: [id number] Fabrice Moon [address] [place] [address] Dear Ms. Moon, We are pleased to inform you that the results of your recent breast imaging exam on 04/03/2023 are normal. Early detection of cancer is very important. We also understand recommendations regarding breast cancer screening are controversial. Please discuss with your primary care provider which strategy is best for you and whether a mammogram is right for you. Your imaging studies and report will be kept on file at [facility] as part of your permanent medical record and are available for your continuing care. Thank you for allowing us to help in meeting your health care needs. Sincerely, Dr. Wilks Interpreting Radiologist [facility] (Normal over 40) documented in this encounterFirelands Regional Medical Center12-18-2023 Telephone encounter Note * Telephone Encounter - Margret Paris RN - 03/31/2023 2:12 PM EST Please contact patient to schedule mammogram and annual. Margret Paris RN [facility]12-18-2023 Miscellaneous Notes* Telephone Encounter - Margret Paris RN - 03/31/2023 2:12 PM EST Please contact patient to schedule mammogram and annual. Margret Paris RN * Telephone Encounter - Margret Paris RN - 03/31/2023 1:51 PM EST Mammogram pended. Will have patient schedule annual as well. MARGRET PARIS RN * Telephone Encounter - Laurie Yeager - 03/31/2023 12:20 PM EST Patient verified by name and . She is requesting an Mammogram screening order be placed for her to schedule. Review and advise. documented in this encounterFirelands [facility] Medical Center12-18-2023 Telephone encounter Note * Telephone Encounter - Margret Paris RN - 03/31/2023 1:51 PM EST Mammogram pended. Will have patient schedule annual as well. MARGRET PARIS RN [facility]12-18-2023 Telephone encounter Note* Telephone Encounter - Laurie Yeager - 03/31/2023 12:20 PM EST Patient verified by name and . She is requesting an Mammogram screening order be placed for her to schedule. Review and advise. [facility]09-12-2023 Procedure [facility]09-12-2023 Procedure [facility]08-21-2023 History and physical note Author Angel Fairchild [facility] December 02, 2022 3:35pm Note Date/Time December 01, 2022 8: 54am [facility] Medical Records Department [address] [place] [id number] History & Physical Exam 12/01/22 0852 MR#: [id number] Acct: [id number] Name: FABRICE MOON Rep #:[id number] : 1945 77 From: Angel Fairchild MD PCP: Dr. Micah Díaz, DO Status:PRE [facility] Location: [facility] History and Physical Date of Admission: 12/24/22 FABRICE MOON, is a 77 F who [place] the [place] today for a cardioversion. She has a history of aortic valve disease status post aortic valve replacement in 2010 with a bioprosthetic valve. She also has a history ofhypertension and hyperlipidemia. She was recently diagnosed with iron deficient anemia. She underwent a cardioversion on 11/22/2022 that was unsuccessful. She was started on Multaq therapy and we will proceed with a repeat cardioversion with antiarrhythmic assistance. Pt has not had any other issues with chest pain. She does have issues with GERD. She does have a hiatal hernia. She does not have any worsening SOB. Sheis having issues with fatigue and decrease in energy. She does not have any palpitations that she is aware of. She does not have any lightheadedness dizziness. EKG demonstrates AFib Intake Vital Signs: See EMR Intake Visit Reasons: [facility] Ssis Architect Required: No Is patient in pain?: No Allergies amitriptyline [From Elavil] Adverse Reaction (Severe, Verified 10/03/22 09:50) Unknown tramadol Adverse Reaction (Severe, Verified 10/03/22 09:50) Unknown valdecoxib [From Bextra] Adverse Reaction (Severe, Verified 10/03/22 09:50) Unknown amlodipine Adverse Reaction (Intermediate, Verified 10/03/22 09:50) Foot and ankle edema Medications See EMR [facility] Medical History (Updated 10/03/22 @ 10:58 by Ileana ALEGRE, PA) Bicuspid aortic valve Fibromyalgia Hyperlipidemia Hypothyroidism New onset atrial fibrillation Nonrheumatic aortic (valve) stenosis Obesity Obstructive sleep apnea Surgical History History of ankle surgery History of aortic valve replacement with bioprosthetic valve (10/23/10) History of bladder suspension procedure History of foot surgery History of hysterectomy History of left heart catheterization (09/06/10) History of lumbar surgery Hx of shoulder surgery Family History Father Lung cancerMother Cancer kidney cancer Heart disease PPM Social History Smoking Status: Never smoker ROS Const Const: Negative for fatigue, weakness, headache(s), frequent falls, excessive sweating, weight gain or weight loss Eyes Eyes: Negative for blind spots, loss of peripheral vision, transient loss of vision, blurry vision, change in vision or double vision ENT ENT: Negative for headache(s), dizziness, tinnitus, Nosebleed/epistaxis or balance problems Cardio Chest Pain: No Palpitations: No Edema: Bilateral Muscle aches with walking: None Resp Respiratory: Negative for SOB with activity, SOB at rest, SOB orthopnea\SOB lying down or Cough GI GI: Positive for heartburn; Negative nausea, vomiting, bloating, vomiting blood/hematemesis, bright, red blood in stools or black,tarry stools : Negative for hematuria Musc Musc: Negative for muscle aches/ myalgia, muscle weakness, joint pain or balanceproblems Skin Skin: Negative rash or wounds Neuro Neuro: Negative for dizziness, lightheadedness, near syncope, syncope, orthostatic symptoms, frequent falls, headache(s), weakness, confusion, memory loss, restless legs, blurry vision or double vision Evan Hematologic/Lymphatic: Negative for easy bleeding or easy bruising Endo Endo: Negative for fatigue, cold intolerance, heat intolerance or excessive sweating Psych Psych: Negative for anxiety or depression Allergy Allergy/Immunology: Negative for rash Cardiology Exam Const Appearance: cooperative, healthy appearing, comfortable, no acute distress and well developed Orientation: alert, awake and oriented x3 Head Head: normal to inspection Ears: hearing grossly normal bilaterally Nose: external nose normal Face and Sinus: face symmetric Mouth: oral mucosae normal, lip normal and moist mucous membranes Eyes General: appearance normal, both eyes and all related structures Eyelids: eyelids normal Conjunctivae: conjunctivae normal Pupils: PERRL EOM: EOM intact bilaterally Neck Neck: normal visual inspection and trachea midline; Negative no JVD Carotids: Negative bruit Chest Chest inspection: normal inspection of the chest Auscultation: Bilateral: Clear to Auscultation Cardio Palpation: normal PMI Rate: regular rate Rhythm: irregularly irregular Heart sounds: S1 normal, S2 normal and murmur; Negative rub or gallop Murmur: Grade 2/6 and harsh GI GI: soft, no hepatosplenomegaly and bowel sounds present Neuro General: patient alert, patient awake, patient oriented x3 and CN's II-XI intactbilaterally Extremities Pulses: Normal: Right Posterior Tibial Pulse, Left Posterior Tibial Pulse, RightRadial Pulse and Left Radial Pulse Lower Extremity Edema: None: Bilateral Psych Psychological: normal affect Supplemental Info Supplemental Information Echocardiogram 2019: Normal LV size. Left ventricular systolic function is normal. The estimated ejection fraction is 55 %. Stage 1 diastolic dysfunction. Mean aortic valve gradient 15 mmHg. Mild aortic stenosis. Stable appearing bioprosthetic aortic valve apparatus. Mild concentric left ventricular hypertrophy. Echocardiogram 05/2022: Normal LV size. Left ventricular systolic function is normal. The estimated ejection fraction is 55 %. Normal prosthetic aortic valve. Mild concentric left ventricular hypertrophy. Stage 2 diastolic dysfunction. Mean aortic valve gradient 18 mmHg. Pharmacologic myocardial perfusion stress test 06/2022 Conclusion: Normal pharmacologic myocardial perfusion stress test. Preserved ejection fraction. Assessment and Plan Assessment and Plan (1) History of aortic valve replacement with bioprosthetic valve: Status: Resolved Comment: Aortic valve replacement with 23-mm Elaina-Pérez pericardial valve. 10/23/2010 Plan: Reviewed echocardiogram from 2022. Valve is stable. She will continue with antibiotic prophylaxis. (2) Essential hypertension: Status: Acute Plan: BP is controlled on current medications. She will not make any adjustments. Ptnotes that her edema improved with stopping her Norvasc. (3) Hyperlipidemia: Status: Chronic Qualifiers: Hyperlipidemia type: pure hypercholesterolemia Qualified Code(s): E78.00 - Pure hypercholesterolemia, unspecified; E78.0 - Pure hypercholesterolemia Plan: Elevated, this is managed by endocrine. Did discuss diet. Laboratory Tests 04/24/22 08:58 Cholesterol 223 H LDL Cholesterol 125 HDL Cholesterol 50 (4) New onset atrial fibrillation: Status: Acute Plan: She has a [id number] score of 3. She was started on Eliquis. She underwent cardioversion on 11/01/2022 that was unsuccessful. She was started on Multaq therapy and will undergo a repeat cardioversion. At office appointment, we did discuss with her about the change A-fib trial. She would like to think about this. 12/02/22 1535 <Electronically signed by Angel Fairchild MD> Cosigner Signature (if applicable): 12/01/22 0858 <Electronically signed by Star PRIEST> CC: ZAYDA Roth; Dr. Angel Fairchild MD; Dr. Micah Díaz DO~ Signed [facility] Work Phone: [phone] 476-415412-14-2022 NoteHNO ID: [id number] Author: Roxane Pineda MD Service: ? Author Type: Physician Type: Progress Notes Filed: 03/27/2022 2:23 PM Note Text: ESTABLISHED PATIENT VISIT HPI Fabrice Moon is a 76 year old female who presents The has tried Trospium, Tolterodine and oxybutynin. She has a reaction to each drug. Continues to have moderate urgency and urge incontinence. We discussed third line therapies including Botox and InterStim therapy. She would like to try 1 more medication before moving onto third line therapies. I did provide her with a prescription for Vesicare 10 mg today. She is going to follow-up with Dr. Christensen. GLUCOSE UA (POCT) Negative 12/26/2021 BILIRUBIN UA (POCT) Negative 12/26/2021 KETONE UA (POCT) Negative 12/26/2021 SPECIFIC GRAVITY UA (POCT) 1.010 12/26/2021 HEMOGLOBIN/BLOOD UA (POCT) Moderate 12/26/2021 PH UA (POCT) 5.5 12/26/2021 PROTEIN UA (POCT) Negative 12/26/2021 UROBILINOGEN UA (POCT) 0.2 12/26/2021 NITRITE UA (POCT) Negative 12/26/2021 LEUKOCYTES UA (POCT) Small 12/26/2021 COLOR UA (POCT) Yellow 12/26/2021 CLARITY UA (POCT) Clear 12/26/2021 REVIEW OF SYSTEMS GENERAL:No weight loss, malaise or fevers., SEE HPI GENITOURINARY: See HPI CONSTITUTIONALl: No recent fever or weight loss ALLERGIES Allergen Reactions Amitriptyline Rash Elavil [Amitriptyli* Intolerance Has taken with no reaction Naproxyn [Naproxen] Oxybutynin Swelling Tolterodine Other: See Comments Facial swelling and itching Valdecoxib Rash 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 asymptomatic currently PMH - PAST MEDICAL HISTORY OF hiatal hernia PMH - PAST MEDICAL HISTORY OF mild aortic stenosis Unspecified hypothyroidism many years FAMILY HISTORY Problem Relation Age of Onset Cancer Father lung, that went to brain Cancer Mother kidney Diabetes Maternal Aunt Diabetes Maternal Uncle Coronary Artery Disease Paternal Uncle multiple in 50's Prostate Cancer Brother No Known Problems Brother No Known Problems Brother Diabetes Maternal Grandmother Diabetes Maternal Grandfather Cancer Paternal Grandmother No Known Problems Paternal Grandfather Social History Tobacco Use Smoking status: Never Smokeless tobacco: Never Vaping Use Vaping Use: Never used Substance Use Topics Alcohol use: Yes Comment: Socially Drug use: No MEDICATIONS: gabapentin (NEURONTIN) 600 mg tablet FERROUS SULFATE ORAL Take by mouth. cholecalciferol, vitamin D3, (VITAMIN D3 ORAL) Take by mouth. Lactobacillus acidophilus (PROBIOTIC) 10 billion cell cap Take by mouth. amLODIPine (NORVASC) 5 mg tablet Take 5 mg by mouth once daily. coenzyme Q10 (COENZYME Q-10) 100 mg cap capsule Take 100 mg by mouth twice daily. metoprolol tartrate 25 mg ORAL tablet Take 0.5 tablets by mouth twice daily. (Patient taking differently: Take 25 mg by mouth twice daily. Pt takes 1 tablet twice daily) Levothyroxine 100 mcg ORAL Cap Take 125 mcg by mouth once daily. aspirin, enteric coated (ASPIRIN, ENTERIC COATED) 81 mg EC tablet Take 1 tablet by mouth once daily. diphenoxylate-atropine (LOMOTIL) 2.5-0.025 mg per tablet Take by mouth. 4 times a day as needed. Trospium (SANCTURA SR) 60 mg cp24 Take 1 capsule by mouth once daily. (Patient not taking: Reported on 03/27/2022) Trospium (SANCTURA SR) 60 mg cp24 Take 1 capsule by mouth once daily. (Patient not taking: Reported on 03/27/2022) CPAP as directed. For sleep apnea started 10/09/2004 OTC PRODUCT Vitamin D 5000units per day B.ani-L.aci-L.dayne-L.plan-L.Van 10 billion cell (2 billion ea) cap Take by mouth. Physical Exam BP 118/78 Ht 170.2 cm (5' 7) Wt 86.2 kg (190 lb) BMI 29.76 kg/m? ASSESSMENT/PLAN: (N39.41) Urge incontinence (primary encounter diagnosis)[facility]12-13-2022 Miscellaneous Notes* Letter - Mammography Coordinator - 03/26/2022 11:57 AM EST March 26, 2022 PID: [id number] Fabrice Moon [facility] [place] [address] Dear Ms. Moon, We are pleased to inform you that the results of your recent breast imaging exam on 03/25/2022 are normal. Early detection of cancer is very important. We also understand recommendations regarding breast cancer screening are controversial. Please discuss with your primary care provider which strategy is best for you and whether a mammogram is right for you. Your imaging studies and report will be kept on file at [facility] as part of your permanent medical record and are available for your continuing care. Thank you for allowing us to help in meeting your health care needs. Sincerely, Dr. Galdamez Interpreting Radiologist [facility] (Normal over 40) documented in this encounterFirelands Regional Medical Center12-12-2022 History of Present illness Narrative* Michelle Portillo RT(R) - 03/25/2022 11:10 AM EST Radiology Service Progress Note PATIENT NAME: Fabrice Moon DATE OF SERVICE: March 25, 2022 TIME: 11:07 AM PATIENT IDENTITY VERIFICATION COMPLETED USING TWO (2) IDENTIFIERS: Name and Date of confirmedby patient verbally. FALL SCREENING: Has the patient had 2 falls in the last year or 1 fall with injury or currently using an Ambulatory Assistive Device (Walker, Cane, Wheelchair, Crutches, etc.)? No PATIENT GENDER DATA: Female. status: : No status: NO. PATIENT RELEVANT IMPLANT DATA REVIEWED: Not Applicable RADIOLOGY DEPARTMENT: Mammography PERIPHERAL IV DATA: Not applicable SIGNED BY: RT Mirian(R) March 25, 2022 11:07 AM documented in this encounterFirelands Regional Medical Center12-09-2022 Miscellaneous Notes* Telephone Encounter - Cassy Zuniga MD - 03/22/2022 11:42 AM EST order placed. Cassy Zuniga MD * Telephone Encounter - Ghislaine Ibrahim - 03/22/2022 10:[address] order for mammography and route to schedulers so we may call patient back to arrange appointment. documented in this encounterFirelands Regional Medical Center10-27-2022 Miscellaneous Notes* Telephone Encounter - Shayy Hadley Cma - 02/07/2022 11:24 AM EDT Pt does not have a email or computer offered an in person denied it will wait till March * Telephone Encounter - Roxane Pineda MD - 02/07/2022 11:19 AM EDT Would she like to do a virtual visit with Elzbieta to discuss next steps? * Telephone Encounter - Yesenia Herrera Cma - 02/07/2022 8:20 AM EDT Patient states she has tried the Trospium for 30 days. Per patient medication has not helped her bladder spasms. Patient previously has tried Detrol and Myrbetriq but medication caused itching, and redness to herface. Patient inquiring if she should continue medication? Stop medication til follow up ? Alternative medication? Patient RB follow up is 03/27/22. Patient decline MAXIMINO appointment due to living in [place], and has no transportation Yesenia Herrera Cma documented in this encounterFirelands Regional Medical Center09-21-2022 Miscellaneous Notes* Addendum Note - Roxane Pineda MD - 01/02/2022 1:39 PM EDTAddended by: ROXANE PINEDA on: 01/02/2022 01:39 PM Modules accepted: Orders * Telephone Encounter - Roxane Pineda MD - 01/02/2022 1:39 PM EDT Sent to pharmacy * Addendum Note - Yesenia Herrera Cma - 01/02/2022 1:19 PM EDTAddended by: YESENIA HERRERA CMA on: 01/02/2022 01:19 PM Modules accepted: Orders * Telephone Encounter - Yesenia Herrera Cma - 01/02/2022 1:12 PM EDT Patient states Trospium cost $145 at local pharmacy which is to expensive. Patient advised me, you previously check with [facility] for her on a previous medication? Patient requesting RX if you believe it would be more affordable through [facility]. Medication pending if you see fit. Thank you, Yesenia Herrera Cma * Telephone Encounter - Gricelda Olivia RN - 01/02/2022 12:22 PM EDT Patient informed that prescription called to her pharmacy. Gricelda Olivia RN * Telephone Encounter - Roxane Pineda MD - 01/02/2022 12:08 PM EDT Rx sent to pharmacy * Telephone Encounter - Sveta Quintero - 01/01/2022 3:24 PM EDT Fabrice Moon called today. She was wondering about being started on sanctura medication? She discussed with you at last appointment on 12/26. Sveta Quintero RN documented in this encounterFirelands Regional Medical Center09-14-2022 NoteHNO ID: [id number] Author: Roxane Pineda MD Service: ? Author Type: Physician Type: Progress Notes Filed: 12/26/2021 3:43 PM Note Text: ESTABLISHED PATIENT VISIT HPI Fabrice Moon is a 76 year old female who presents post colpopexy and mid urethral sling. She is doing well. She is voiding without difficulty. Her postvoid residual is 0. Incisions are intact and healing. Her vault is well supported. She continues to have significant urgency. The symptoms were present preoperatively. She has tried Myrbetriq and Detrol in the past. We will try Sanctura. Follow-up in 2 to 3 months. GLUCOSE UA (POCT) Negative 09/26/2021 BILIRUBIN UA (POCT) Negative 09/26/2021 KETONE UA (POCT) Negative 09/26/2021 SPECIFIC GRAVITY UA (POCT) 1.015 09/26/2021 HEMOGLOBIN/BLOOD UA (POCT) Small 09/26/2021 PH UA (POCT) 5.5 09/26/2021 PROTEIN UA (POCT) Negative 09/26/2021 UROBILINOGEN UA (POCT) 0.2 09/26/2021 NITRITE UA (POCT) Negative 09/26/2021 LEUKOCYTES UA (POCT) Small 09/26/2021 COLOR UA (POCT) Yellow 09/26/2021 CLARITY UA (POCT) Clear 09/26/2021 REVIEW OF SYSTEMS GENERAL:No weight loss, malaise or fevers, No weight loss, malaise or fevers., SEE HPI GENITOURINARY: See HPI CONSTITUTIONALl: No recent fever or weight loss ALLERGIES Allergen Reactions Amitriptyline Rash Elavil [Amitriptyli* Intolerance Has taken with no reaction Naproxyn [Naproxen] Oxybutynin Swelling Tramadol Valdecoxib Rash 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 asymptomatic currently PMH - PAST MEDICAL HISTORY OF hiatal hernia PMH - PAST MEDICAL HISTORY OF mild aortic stenosis Unspecified hypothyroidism many years FAMILY HISTORY Problem Relation Age of Onset Cancer Father lung, that went to brain Cancer Mother kidney Diabetes Maternal Aunt Diabetes Maternal Uncle Coronary Artery Disease Paternal Uncle multiple in 50's Prostate Cancer Brother No Known Problems Brother No Known Problems Brother Diabetes Maternal Grandmother Diabetes Maternal Grandfather Cancer Paternal Grandmother No Known Problems Paternal Grandfather Social History Tobacco Use Smoking status: Never Smokeless tobacco: Never Vaping Use Vaping Use: Never used Substance Use Topics Alcohol use: Yes Comment: Socially Drug use: No MEDICATIONS: tolterodine ER (DETROL LA) 4 mg 24 hr capsule Take 1 capsule by mouth once daily. CPAP as directed. For sleep apnea started 10/09/2004 rOPINIRole (REQUIP) 0.25 mg tablet Take 0.25 mg by mouth as directed. 1 hour prior to bedtime cholecalciferol, vitamin D3, (VITAMIN D3 ORAL) Take by mouth. Lactobacillus acidophilus (PROBIOTIC) 10 billion cell cap Take by mouth. amLODIPine (NORVASC) 5 mg tablet Take 5 mg by mouth once daily. pantoprazole DR (PROTONIX) 40 mg tablet Pantoprazole Sodium Active 40 MG DAILY May 26, 2018 9:59am amitriptyline (ELAVIL) 10 mg tablet Take 10 mg by mouth daily at bedtime. (Patient not taking: Reported on 07/24/2021 ) GABAPENTIN ORAL Take by mouth. (Patient not taking: Reported on 07/24/2021 ) coenzyme Q10 (COENZYME Q-10) 100 mg cap capsule Take 100 mg by mouth twice daily. POLYPODIUM LEUCOTOMOS EXTRACT (HELIOCARE ORAL) Take by mouth. (Patient not taking: Reported on 12/29/2020 ) benzonatate 100 mg capsule Take 1 capsule by mouth three times daily as needed for Cough. Swallow whole please. (Patient not taking: Reported on 12/29/2020 ) metoprolol tartrate 25 mg ORAL tablet Take 0.5 tablets by mouth twice daily. (Patient taking differently: Take 25 mg by mouth twice daily. Pt takes 1 tablet twice daily) acetaminophen-hydrocodone 5-500 mg ORAL tablet Take 1-2 tablets by mouth every 6 hours as needed. (do not exceed 4000mg of acetaminophen/tylenol in any 24 hour period) (Patient not taking: Reported on 12/29/2020) Levothyroxine 100 mcg ORAL Cap Take 125 mcg by mouth once daily. aspirin, enteric coated (ASPIRIN, ENTERIC COATED) 81 mg EC tablet Take 1 tablet by mouth once daily. OTC PRODUCT Vitamin D 5000units per day B.ani-L.aci-L.dayne-L.plan-L.Van 10 billion cell (2 billion ea) cap Take by mouth. diphenoxylate-atropine (LOMOTIL) 2.5-0.025 mg per tablet Take by mouth. 4 times a day as needed. Physical Exam There were no vitals taken for this visit. ASSESSMENT/PLAN: (R39.15) Urgency of urination (primary encounter diagnosis) Plan: BLADDER SCAN (N99.3) [facility] Misc[facility] Notes* Telephone Encounter - Austin Mitchell Ma - 12/18/2021 9:30 AM EDT Patient informed. Austin Mitchell Ma * Telephone Encounter - Roxane Pineda MD - 12/18/2021 9:26 AM EDT She can drive * Telephone Encounter - Austin Mitchell Ma - 12/18/2021 9:10 AM EDT Patient called stating that her discharge papers state that she should consult her doctor on when she is able to drive again. She states that she is off pain meds at this point, she is having frequency and slight discomfort in the area but other dinh is feeling better. She would like to know if shecan drive to the store or bank at this point? Can you advise? Austin Mitchell Ma documented in this encounterFirelands [facility] Medical Center08-29-2022 NoteHNO ID: [id number] Author: Juany Soares APRN.TELETRAY OPERATOR Service: Anesthesiology Author Type: Nurse Harness Brusher Type: Anesthesia Procedure Notes Filed: 12/10/2021 3:20 PM Note Text: ANESTHESIOLOGY PROCEDURE NOTE Airway General Information Procedure Start Time/Medication Administration: 12/10/2021 2:18 PM Patient location during procedure: OR Timeout Performed Pre-procedure: timeout performed Consent Obtained: Yes Patient identity confirmed: arm band and patient Staffing Anesthesiologist: Abilio Scherer MD TELETRAY OPERATOR: Juany Mellion, CONSTRUCTION SPECIALIST.TELETRAY OPERATOR Performed by: anesthesiologist Indications and Patient Condition Indications for airway management: anesthesia Preoxygenated: yes anesthesia circuit Method: asleep Cricoid Pressure: No Manual In-Line Stabilization: No Difficult Mask: No Final Airway Details Final airway type: endotracheal airway Final Endotracheal Airway: ETT Cuffed: yes Successful intubation technique: video laryngoscopy Devices used: Arreguin Endotracheal tube insertion site: oral Blade: Med Blade size: #4 ETT size (mm): 7.5 Measured from: teeth Measurement (cm): 20 Cormack-Lehane Classification: grade IIa - partial view of glottis Number of attempts at approach: 1 Airway not difficult SIGNATURE: Juany Soares APRN.TELETRAY OPERATOR PATIENT NAME: Fabrice Moon DATE: December 10, 2021 TIME: 3:17 PM CSN: [id number] [facility]08-[facility] Miscellaneous Notes* Telephone Encounter - Austin Mitchell Ma - 11/13/2021 9:45 AM EDT Patient informed. Austin Mitchell Ma * Telephone Encounter - Roxane Pineda MD - 11/13/2021 9:29 AM EDT Yes that is fine * Telephone Encounter - Roz Chand MA - 11/13/2021 9:21 AM EDT Patient called into office to report that she is having a bad reaction to the Detrol, and wanted toknow if she can stop taking it or does she needs to ween off of it. She is experiencing very dry, swollen redness of the eyes, dry throat for hours after taking the medication. Please Advise Roz Chand MA documented in this encounterFirelands Regional Medical Center08-01-2022 Miscellaneous Notes* Telephone Encounter - Roxane Pineda MD - 11/12/2021 12:05 PM EDT The injection should be fine Thank you * Telephone Encounter - Malgorzata Pérez - 11/12/2021 11:54 AM EDT Jm Patient called, she is having ralscp on 12/10. She is going tmrw to pain doctor for a injection in her back. She wants to know your opinion if you think that it would be OK. She doesn't want it to effect her surgery being done. I did advise her to let them know also that she is scheduled for surgery. Injection to be done 11/13/21 Thank you, Malgorzata documented in this encounterFirelands Regional Medical Center06-16-2022 Miscellaneous Notes* Telephone Encounter - Roz Chand MA - 09/27/2021 1:23 PM EDT Called Erin Ho (sister) to navigate her make an account with [facility] in order for Fabrice to received her medication thru mail order. If she has any issues she would need to contact [facility]ah Su[facility] at [phone]. The pharmacy already have the prescription in their system, that have been confirmed by myself. Roz Chand MA * Telephone Encounter - Natty Marcial Cma - 09/27/2021 10:26 AM EDT Patient healthcare facility administrator called stated the script for tolterodine that [facility], Erin stated that Patients account information was needed to help with the script, I have advised caregiver that the script was called in already, Account WIPDP, id # [id number] Natty Marcial Cma documented in this encounterFirelands Regional Medical Center06-15-2022 NoteHNO ID: [id number] Author: Roxane Pineda MD Service: ? Author Type: Physician Type: Progress Notes Filed: 09/26/2021 2:35 PM Note Text: ESTABLISHED PATIENT VISIT HPI Fabrice Moon is a 76 year old female who presents with OAB, vaginal prolapse and rectocele. Patient here in follow-up to review her urodynamics and discuss surgery. She is status post an anterior and posterior repair several years ago. 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 She also has stress urinary incontinence. We did discuss that surgical correction of her prolapse may or may not improve her bladder symptoms. We did review her stress urinary incontinence. She would like to proceed with surgical correction and we will begin arranging for colpopexy and mid urethral sling. I also wrote a prescription for tolterodine today. And she will return for a consent. URINE POC GLUCOSE UA (POCT) Negative 09/26/2021 BILIRUBIN UA (POCT) Negative 09/26/2021 KETONE UA (POCT) Negative 09/26/2021 SPECIFIC GRAVITY UA (POCT) 1.015 09/26/2021 HEMOGLOBIN/BLOOD UA (POCT) Small 09/26/2021 PH UA (POCT) 5.5 09/26/2021 PROTEIN UA (POCT) Negative 09/26/2021 UROBILINOGEN UA (POCT) 0.2 09/26/2021 NITRITE UA (POCT) Negative 09/26/2021 LEUKOCYTES UA (POCT) Small 09/26/2021 COLOR UA (POCT) Yellow 09/26/2021 CLARITY UA (POCT) Clear 09/26/2021 REVIEW OF SYSTEMS GENERAL:No weight loss, malaise or fevers., SEE HPI GENITOURINARY: See HPI CONSTITUTIONALl: No recent fever or weight loss ALLERGIES Allergen Reactions - Amitriptyline Rash - Elavil [Amitriptyli* Intolerance Has taken with no reaction - Naproxyn [Naproxen] - Oxybutynin Swelling - Tramadol - Valdecoxib Rash 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 asymptomatic currently - PMH - PAST MEDICAL HISTORY OF hiatal hernia - PMH - PAST MEDICAL HISTORY OF mild aortic stenosis - Unspecified hypothyroidism many years FAMILY HISTORY Problem Relation Age of Onset - Cancer Father lung, that went to brain - Cancer Mother kidney - Diabetes Maternal Aunt - Diabetes Maternal Uncle - Coronary Artery Disease Paternal Uncle multiple in 50's - Prostate Cancer Brother - No Known Problems Brother - No Known Problems Brother - Diabetes Maternal Grandmother - Diabetes Maternal Grandfather - Cancer Paternal Grandmother - No Known Problems Paternal Grandfather Social History Tobacco Use - Smoking status: Never Smoker - Smokeless tobacco: Never Used Vaping Use - Vaping Use: Never used Substance Use Topics - Alcohol use: Yes Comment: Socially - Drug use: No MEDICATIONS: CPAP as directed. For sleep apnea started 10/09/2004 rOPINIRole (REQUIP) 0.25 mg tablet Take 0.25 mg by mouth as directed. 1 hour prior to bedtime Lactobacillus acidophilus (PROBIOTIC) 10 billion cell cap Take by mouth. amLODIPine (NORVASC) 5 mg tablet Take 5 mg by mouth once daily. pantoprazole DR (PROTONIX) 40 mg tablet Pantoprazole Sodium Active 40 MG DAILY May 26, 2018 9:59am coenzyme Q10 (COENZYME Q-10) 100 mg cap capsule Take 100 mg by mouth twice daily. Levothyroxine 100 mcg ORAL Cap Take 125 mcg by mouth once daily. aspirin, enteric coated (ASPIR-LOW) 81 mg ORAL EC tablet Take 1 tablet by mouth once daily. OTC PRODUCT Vitamin D 5000units per day B.ani-L.aci-L.dayne-L.plan-L.Van (PROBIOTIC FORMULA) 10 billion cell (2 billion ea) ORAL Cap Take by mouth. diphenoxylate-atropine (LOMOTIL) 2.5-0.025 mg ORAL per tablet Take by mouth. 4 times a day as needed. cholecalciferol, vitamin D3, (VITAMIN D3 ORAL) Take by mouth. amitriptyline (ELAVIL) 10 mg tablet Take 10 mg by mouth daily at bedtime. GABAPENTIN ORAL Take by mouth. POLYPODIUM LEUCOTOMOS EXTRACT (HELIOCARE ORAL) Take by mouth. benzonatate 100 mg capsule Take 1 capsule by mouth three times daily as needed for Cough. Swallow whole please. metoprolol tartrate 25 mg ORAL tablet Take 0.5 tablets by mouth twice daily. acetaminophen-hydrocodone 5-500 mg ORAL tablet Take 1-2 tablets by mouth every 6 hours as needed. (do not exceed 4000mg of acetaminophen/tylenol in any 24 hour period) Physical Exam Blood Pressure 128/74 Height 170.2 cm (5' 7) Weight 88 kg (194 lb) Body Mass Index 30.38 kg/m? ASSESSMENT/PLAN: (N99.3) Prolapse of vaginal vault after hysterectomy (primary encounter diagnosis) (N39.3) Stress incontinence (N81.6) Rectocele We will begin surgical planning. Robotic assisted laparoscopic sacrocolpopexy, mid urethra (more content not included)...[facility] NoteHNO ID: [id number] Author: Uri Capone RN Service: ? Author Type: Registered Nurse Type: Progress Notes Filed: 09/30/2021 8:22 AM Note Text: Fabrice Moon [id number] 1945 September [birth year], 2021 Diagnoses: Stress urinary incontinence UA done: No Procedure Performed: Multichannel urodynamic testing including multichannel cystometrogram, urethral pressure profiles, uroflowmetry, pressure voiding study, EMG and reduced urethral pressure profiles. Was a uroflow done at some point during the study: Yes Was a cystometrogram performed: Yes Was a UPP done: Yes Was an EMG done: Yes Was an intraabdominal pressure recorded: Yes Where were pressure catheters placed: Bladder and Rectum Procedure: The patient verified medications and allergies. The procedure was explained to the patient. Immediately prior to the test the patient was given Keflex 500 mg #1 by mouth and Lidocaine 2% jelly 6 ml to urethra per order. UNIVERSAL PROTOCOL / SAFETY CHECKLIST A moment to CARE: Completed Procedure to be performed: Urodynamics Sign in Communication: Completed Time Out: Team Confirms the Correct Patient, Correct Procedure, Correct Site and Site Marking, Correct Position (if applicable), Prep and Dry Time (if applicable). Time: 1000 Affirmation of Time Out: N/A Sign Out Discussion: Completed Urodynamic Findings: Uroflow : Patient arrived with a roth catheter- No. Patient voided 96.9 ml; Curve: Normal Post void residual 50 ml QMAX 12.2 ; QAVG 5.8 . Cystometrogram: The patient had a cystometrogram EMG: Yes First Sensation 55 ml First desire Did not report ml Strong Desire 62 ml Capacity 66 ml The patient did not leak with cough. detrusor contractions beginning at 59.5 ml Instability associated with urge: Yes Instability associated with leakage: Yes Patient leaked several times during CMG and stress test. Patient refilled several times to complete test. Patient unable to hold urine. Urethral pressure profiles: Leak with Valsalva Was patient assessed for VLPP: Yes Mean Urethral closure pressure 85 cmH2O Functional urethral length 63 mm Leak point pressure testing 100 and 108 cmH2O Baseline 63 Subtracted leak point pressure 37 and 45 cmH2O Patient leaked with valsalva x2 sitting Reduced Urethral Pressure Profile: Leak with cough The prolapse was reduced with a speculum Mean urethral closure pressure of 76 cmH2O Functional urethral length of 45 cmH2O Leak point pressure testing 75 and 80 cmH2O Baseline 54 Subtracted leak point pressure 21 and 26 cmH20. Patient leaked with small cough x2 sitting. Pressure-Flow Voiding Study: EMG: Yes Void 41 ml; Curve: Normal Post void residual: 50ml Maximum detrusor pressure 44.2 Cm H20 Maximum flow rate: 3.3 ml/sec Average flow rate: 2.3 ml/sec UDS notes: UDS Summary: Uroflow: Patient voided 96 mL with a 50 mL post void residual. Normal-appearing flow. Cystometrogram: Patient had early sensation of bladder filling with significant detrusor instability with urinary leakage and stress urinary incontinence. Urethral pressure profile: Patient had significant stress urinary incontinence with and without prolapse reduction. Pressure flow: Patient voided 41 mL with a 50 mL post void residual. EMG normal both during CMG and pressure flow. Patient demonstrates significant detrusor instability with urinary leakage and stress urinary incontinence. Plan: Will follow up with provider to discuss results and plan of care. Patient tolerated the procedure well. Home going instructions given. Patient able to repeat back understanding of instructions. GUERITA Felder MD September 30, 2021 cc: Rxoane Pineda [facility]06-15-2022 History of Present illness Narrative* Roxane Pineda MD - 09/26/2021 1:45 PM EDT ESTABLISHED PATIENT VISIT HPI Fabrice Moon is a 76 year old female who presents with OAB, vaginal prolapse and rectocele. Patient here in follow-up to review her urodynamics and discuss surgery. She is status post an anterior and posterior repair several years ago. 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 She also has stress urinary incontinence. We did discuss that surgical correction of her prolapse may or may not improve her bladder symptoms. We did review her stress urinary incontinence. She would like to proceed with surgical correction and we will begin arranging for colpopexy and mid urethral sling. I also wrote a prescription for tolterodine today. And she will return for a consent. URINE POC GLUCOSE UA (POCT) Negative 09/26/2021 BILIRUBIN UA (POCT) Negative 09/26/2021 KETONE UA (POCT) Negative 09/26/2021 SPECIFIC GRAVITY UA (POCT) 1.015 09/26/2021 HEMOGLOBIN/BLOOD UA (POCT) Small 09/26/2021 PH UA (POCT) 5.5 09/26/2021 PROTEIN UA (POCT) Negative 09/26/2021 UROBILINOGEN UA (POCT) 0.2 09/26/2021 NITRITE UA (POCT) Negative 09/26/2021 LEUKOCYTES UA (POCT) Small 09/26/2021 COLOR UA (POCT) Yellow 09/26/2021 CLARITY UA (POCT) Clear 09/26/2021 REVIEW OF SYSTEMS GENERAL:No weight loss, malaise or fevers., SEE HPI GENITOURINARY: See HPI CONSTITUTIONALl: No recent fever or weight loss ALLERGIES Allergen Reactions Amitriptyline Rash Elavil [Amitriptyli* Intolerance Has taken with no reaction Naproxyn [Naproxen] Oxybutynin Swelling Tramadol Valdecoxib Rash 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 asymptomatic currently PMH - PAST MEDICAL HISTORY OF hiatal hernia PMH - PAST MEDICAL HISTORY OF mild aortic stenosis Unspecified hypothyroidism many years FAMILY HISTORY Problem Relation Age of Onset Cancer Father lung, that went to brain Cancer Mother kidney Diabetes Maternal Aunt Diabetes Maternal Uncle Coronary Artery Disease Paternal Uncle multiple in 50's Prostate Cancer Brother No Known Problems Brother No Known Problems Brother Diabetes Maternal Grandmother Diabetes Maternal Grandfather Cancer Paternal Grandmother No Known Problems Paternal Grandfather Social History Tobacco Use Smoking status: Never Smoker Smokeless tobacco: Never Used Vaping Use Vaping Use: Never used Substance Use Topics Alcohol use: Yes Comment: Socially Drug use: No MEDICATIONS: CPAP as directed. For sleep apnea started 10/09/2004 rOPINIRole (REQUIP) 0.25 mg tablet Take 0.25 mg by mouth as directed. 1 hour prior to bedtime Lactobacillus acidophilus (PROBIOTIC) 10 billion cell cap Take by mouth. amLODIPine (NORVASC) 5 mg tablet Take 5 mg by mouth once daily. pantoprazole DR (PROTONIX) 40 mg tablet Pantoprazole Sodium Active 40 MG DAILY May 26, 2018 9:59am coenzyme Q10 (COENZYME Q-10) 100 mg cap capsule Take 100 mg by mouth twice daily. Levothyroxine 100 mcg ORAL Cap Take 125 mcg by mouth once daily. aspirin, enteric coated (ASPIR-LOW) 81 mg ORAL EC tablet Take 1 tablet by mouth once daily. OTC PRODUCT Vitamin D 5000units per day B.ani-L.aci-L.dayne-L.plan-L.Van (PROBIOTIC FORMULA) 10 billion cell (2 billion ea) ORAL Cap Take by mouth. diphenoxylate-atropine (LOMOTIL) 2.5-0.025 mg ORAL per tablet Take by mouth. 4 times a day as needed. cholecalciferol, vitamin D3, (VITAMIN D3 ORAL) Take by mouth. amitriptyline (ELAVIL) 10 mg tablet Take 10 mg by mouth daily at bedtime. GABAPENTIN ORAL Take by mouth. POLYPODIUM LEUCOTOMOS EXTRACT (HELIOCARE ORAL) Take by mouth. benzonatate 100 mg capsule Take 1 capsule by mouth three times daily as needed for Cough. Swallow whole please. metoprolol tartrate 25 mg ORAL tablet Take 0.5 tablets by mouth twice daily. acetaminophen-hydrocodone 5-500 mg ORAL tablet Take 1-2 tablets by mouth every 6 hours as needed. (do not exceed 4000mg of acetaminophen/tylenol in any 24 hour period) Physical Exam Blood Pressure 128/74 Height 170.2 cm (5' 7) Weight 88 kg (194 lb) Body Mass Index 30.38 kg/m ASSESSMENT/PLAN: (N99.3) Prolapse of vaginal vault after hysterectomy (primary encounter diagnosis) (N39.3) Stress incontinence (N81.6) Rectocele We will begin surgical planning. Robotic assisted laparoscopic sacrocolpopexy, mid urethral sling and possible posterior repair. documented in this encounterFirelands [facility] Center06-15-2022 History of Present illness Narrative* Uri Capone RN - 09/26/2021 12:05 PM EDT Fabrice Moon [id number] 1945 September 26, 2021 Diagnoses: Stress urinary incontinence UA done: No Procedure Performed: Multichannel urodynamic testing including multichannel cystometrogram, urethral pressure profiles, uroflowmetry, pressure voiding study, EMG and reduced urethral pressure profiles. Was a uroflow done at some point during the study: Yes Was a cystometrogram performed: Yes Was a UPP done: Yes Was an EMG done: Yes Was an intraabdominal pressure recorded: Yes Where were pressure catheters placed: Bladder and Rectum Procedure: The patient verified medications and allergies. The procedure was explained to the patient. Immediately prior to the test the patient was given Keflex 500 mg #1 by mouth and Lidocaine 2% jelly 6 ml to urethra per order. UNIVERSAL PROTOCOL / SAFETY CHECKLIST A moment to CARE: Completed Procedure to be performed: Urodynamics Sign in Communication: Completed Time Out: Team Confirms the Correct Patient, Correct Procedure, Correct Site and Site Marking, Correct Position (if applicable), Prep and Dry Time (if applicable). Time: 1000 Affirmation of Time Out: N/A Sign Out Discussion: Completed Urodynamic Findings: Uroflow : Patient arrived with a roth catheter- No. Patient voided 96.9 ml; Curve: Normal Post void residual 50 ml QMAX 12.2 ; QAVG 5.8 . Cystometrogram: The patient had a cystometrogram EMG: Yes First Sensation 55 ml First desire Did not report ml Strong Desire 62 ml Capacity 66 ml The patient did not leak with cough. detrusor contractions beginning at 59.5 ml Instability associated with urge: Yes Instability associated with leakage: Yes Patient leaked several times during CMG and stress test. Patient refilled several times to completetest. Patient unable to hold urine. Urethral pressure profiles: Leak with Valsalva Was patient assessed for VLPP: Yes Mean Urethral closure pressure 85 cmH2O Functional urethral length 63 mm Leak point pressure testing 100 and 108 cmH2O Baseline 63 Subtracted leak point pressure 37 and 45 cmH2O Patient leaked with valsalva x2 sitting Reduced Urethral Pressure Profile: Leak with cough The prolapse was reduced with a speculum Mean urethral closure pressure of 76 cmH2O Functional urethral length of 45 cmH2O Leak point pressure testing 75 and 80 cmH2O Baseline 54 Subtracted leak point pressure 21 and 26 cmH20. Patient leaked with small cough x2 sitting. Pressure-Flow Voiding Study: EMG: Yes Void 41 ml; Curve: Normal Post void residual: 50ml Maximum detrusor pressure 44.2 Cm H20 Maximum flow rate: 3.3 ml/sec Average flow rate: 2.3 ml/sec UDS notes: N/A Plan: Will follow up with provider to discuss results and plan of care. Patient tolerated the procedure well. Home going instructions given. Patient able to repeat back understanding of instructions. Uri Capone RN cc: Roxane Pineda MD documented in this encounterFirelands Regional Medical Center06-15-2022 Instructions* Patient Instructions* Uri Capone RN - 09/26/2021 9:31 AM EDT POST PROCEDURE INSTRUCTIONS Fabrice Moon September [birth year], 2021 Increase your fluid intake. FOLLOW UP APPOINTMENT: 09/26/21 at 1:45 pm with Roxane Pineda MD in the [address] [place] [address] office. WHEN TO CALL THE DOCTOR: If you develop fever (over 101 degrees) or chills. If you cannot urinate or empty your bladder. If you develop symptoms of a urinary tract infection such as burning or pain with urination, increased frequency of urination or foul smelling urine If you have any other questions or problems. Office phone number; [phone] documented in this encounterFirelands Regional Medical Center04-12-2022 NoteHNO ID: [id number] Author: Roxane Pineda MD Service: ? Author Type: Physician Type: Progress Notes Filed: 07/24/2021 2:10 PM Note Text: NEW PATIENT HISTORY AND PHYSICAL EXAM HISTORY OF PRESENT ILLNESS: Fabrice Moon is a 76 year old female who presents New patient referred by Dr Micah Díaz for Prolapse Patient is status post hysterectomy followed by anterior and posterior repair. She now presents with recurrence of her prolapse. She also has significant urinary urgency urge incontinence and stress urinary incontinence. She has tried oxybutynin in the past however it is significant reaction to it. Has noted a vaginal bulge in a regular basis. 2 PVR 39 mL Patient with frequency and urgency. Do you leak with cough, sneeze or exercise Yes Do you leak with urgency such as getting to the restroom on time or with running water Yes How many times do you urinate during the day 20 - 25 How many times do you get up to urinate at night 3 - 4 How many pads do you wear during the day 5 pads and 1 Depend Do you wear pads at night Yes Do you have fecal urgency Yes Do you have fecal incontinence Yes Do you have pain with intercourse No Do you have urinary leakage with intercourse No What medications have you tried to help your leakage Oxybutynin What surgeries have you had for the above symptoms Cystocele, Rectocele, Bladder Suspension Patient with significant urgency and urge incontinence. See and feel bugle coming from Vaginal area Feeling of prolapse REVIEW OF SYSTEMS: GENERAL:No weight loss, malaise or fevers ALLERGIC/IMMUNOLOGIC: drug allergies HEENT:Negative for frequent or significant headaches, No changes in hearing or vision, no nose bleeds or other nasal problems RESPIRATORY: Negative for cough, hemoptysis, wheezing, COPD, dyspnea or shortness of breath CARDIOVASCULAR: Negative for chest pain, leg swelling, hypertension, CHF or palpitations GASTROINTESTINAL: Positive for diarrhea have colitis GENITOURINARY: See HPI MUSCULOSKELETAL: joint pain or swelling, back pain and muscle pain NEUROLOGIC:Negative for focal numbness or weakness, headaches and dizziness or syncope. SKIN:Negative for lesions, rash, and itching MEDICATIONS: CPAP as directed. For sleep apnea started 10/09/2004 rOPINIRole (REQUIP) 0.25 mg tablet Take 0.25 mg by mouth as directed. 1 hour prior to bedtime cholecalciferol, vitamin D3, (VITAMIN D3 ORAL) Take by mouth. Lactobacillus acidophilus (PROBIOTIC) 10 billion cell cap Take by mouth. amLODIPine (NORVASC) 5 mg tablet Take 5 mg by mouth once daily. pantoprazole DR (PROTONIX) 40 mg tablet Pantoprazole Sodium Active 40 MG DAILY May 26, 2018 9:59am coenzyme Q10 (COENZYME Q-10) 100 mg cap capsule Take 100 mg by mouth twice daily. metoprolol tartrate 25 mg ORAL tablet Take 0.5 tablets by mouth twice daily. Levothyroxine 100 mcg ORAL Cap Take 125 mcg by mouth once daily. aspirin, enteric coated (ASPIR-LOW) 81 mg ORAL EC tablet Take 1 tablet by mouth once daily. OTC PRODUCT Vitamin D 5000units per day amitriptyline (ELAVIL) 10 mg tablet Take 10 mg by mouth daily at bedtime. GABAPENTIN ORAL Take by mouth. POLYPODIUM LEUCOTOMOS EXTRACT (HELIOCARE ORAL) Take by mouth. benzonatate 100 mg capsule Take 1 capsule by mouth three times daily as needed for Cough. Swallow whole please. acetaminophen-hydrocodone 5-500 mg ORAL tablet Take 1-2 tablets by mouth every 6 hours as needed. (do not exceed 4000mg of acetaminophen/tylenol in any 24 hour period) B.ani-L.aci-L.dayne-L.plan-L.Van (PROBIOTIC FORMULA) 10 billion cell (2 billion ea) ORAL Cap Take by mouth. diphenoxylate-atropine (LOMOTIL) 2.5-0.025 mg ORAL per tablet Take by mouth. 4 times a day as needed. 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 asymptomatic currently - PMH - PAST MEDICAL HISTORY OF hiatal hernia - PMH - PAST MEDICAL HISTORY OF mild aortic stenosis - Unspecified hypothyroidism many years FAMILY HISTORY Problem Relation Age of Onset - Cancer Father lung, that went to brain - Cancer Mother kidney - Diabetes Maternal Aunt - Diabetes Maternal Uncle - Coronary Artery Disease Paternal Uncle multiple in 50's - Prostate Cancer Brother - No Known Problems Brother - No Known Problems Brother - Diabetes Maternal Grandmother - Diabetes Maternal Grandfather - Cancer Paternal Grandmother - No Known Problems Paternal Grandfather PAST SURGICAL HISTORY Procedure Laterality Date - COLONOSCOPY FLX DX W/COLLJ SPEC WHEN PFRMD 2000, 12/2009 Colonoscopy - EGD TR (more content not included)...[facility]04-12-2022 History of Present illness Narrative* Roxane Pineda MD - 07/24/2021 1:19 PM EDT NEW PATIENT HISTORY AND PHYSICAL EXAM HISTORY OF PRESENT ILLNESS: Fabrice Moon is a 76 year old female who presents New patient referred by Dr Micah Díaz for Prolapse Patient is status post hysterectomy followed by anterior and posterior repair. She now presents with recurrence of her prolapse. She also has significant urinary urgency urge incontinence and stress urinary incontinence. She hastried oxybutynin in the past however it is significant reaction to it. Has noted a vaginal bulge in a regular basis. 2 PVR 39 mL Patient with frequency and urgency. Do you leak with cough, sneeze or exercise Yes Do you leak with urgency such as getting to the restroom on time or with running water Yes How many times do you urinate during the day 20 - 25 How many times do you get up to urinate at night 3 - 4 How many pads do you wear during the day 5 pads and 1 Depend Do you wear pads at night Yes Do you have fecal urgency Yes Do you have fecal incontinence Yes Do you have pain with intercourse No Do you have urinary leakage with intercourse No What medications have you tried to help your leakage Oxybutynin What surgeries have you had for the above symptoms Cystocele, Rectocele, Bladder Suspension Patient with significant urgency and urge incontinence. See and feel bugle coming from Vaginal area Feeling of prolapse REVIEW OF SYSTEMS: GENERAL:No weight loss, malaise or fevers ALLERGIC/IMMUNOLOGIC: drug allergies HEENT:Negative for frequent or significant headaches, No changes in hearing or vision, no nose bleeds or other nasal problems RESPIRATORY: Negative for cough, hemoptysis, wheezing, COPD, dyspnea or shortness of breath CARDIOVASCULAR: Negative for chest pain, leg swelling, hypertension, CHF or palpitations GASTROINTESTINAL: Positive for diarrhea have colitis GENITOURINARY: See HPI MUSCULOSKELETAL: joint pain or swelling, back pain and muscle pain NEUROLOGIC:Negative for focal numbness or weakness, headaches and dizziness or syncope. SKIN:Negative for lesions, rash, and itching MEDICATIONS: CPAP as directed. For sleep apnea started 10/09/2004 rOPINIRole (REQUIP) 0.25 mg tablet Take 0.25 mg by mouth as directed. 1 hour prior to bedtime cholecalciferol, vitamin D3, (VITAMIN D3 ORAL) Take by mouth. Lactobacillus acidophilus (PROBIOTIC) 10 billion cell cap Take by mouth. amLODIPine (NORVASC) 5 mg tablet Take 5 mg by mouth once daily. pantoprazole DR (PROTONIX) 40 mg tablet Pantoprazole Sodium Active 40 MG DAILY May 26, 2018 9:59am coenzyme Q10 (COENZYME Q-10) 100 mg cap capsule Take 100 mg by mouth twice daily. metoprolol tartrate 25 mg ORAL tablet Take 0.5 tablets by mouth twice daily. Levothyroxine 100 mcg ORAL Cap Take 125 mcg by mouth once daily. aspirin, enteric coated (ASPIR-LOW) 81 mg ORAL EC tablet Take 1 tablet by mouth once daily. OTC PRODUCT Vitamin D 5000units per day amitriptyline (ELAVIL) 10 mg tablet Take 10 mg by mouth daily at bedtime. GABAPENTIN ORAL Take by mouth. POLYPODIUM LEUCOTOMOS EXTRACT (HELIOCARE ORAL) Take by mouth. benzonatate 100 mg capsule Take 1 capsule by mouth three times daily as needed for Cough. Swallow whole please. acetaminophen-hydrocodone 5-500 mg ORAL tablet Take 1-2 tablets by mouth every 6 hours as needed. (do not exceed 4000mg of acetaminophen/tylenol in any 24 hour period) B.ani-L.aci-L.dayne-L.plan-L.Van (PROBIOTIC FORMULA) 10 billion cell (2 billion ea) ORAL Cap Take by mouth. diphenoxylate-atropine (LOMOTIL) 2.5-0.025 mg ORAL per tablet Take by mouth. 4 times a day as needed. 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 asymptomatic currently PMH - PAST MEDICAL HISTORY OF hiatal hernia PMH - PAST MEDICAL HISTORY OF mild aortic stenosis Unspecified hypothyroidism many years FAMILY HISTORY Problem Relation Age of Onset Cancer Father lung, that went to brain Cancer Mother kidney Diabetes Maternal Aunt Diabetes Maternal Uncle Coronary Artery Disease Paternal Uncle multiple in 50's Prostate Cancer Brother No Known Problems Brother No Known Problems Brother Diabetes Maternal Grandmother Diabetes Maternal Grandfather Cancer Paternal Grandmother No Known Problems Paternal Grandfather PAST SURGICAL HISTORY Procedure Laterality Date COLONOSCOPY FLX DX W/COLLJ SPEC WHEN PFRMD 2000, 12/2009 Colonoscopy EGD TRANSORAL BIOPSY SINGLE/MULTIPLE 06/27/2006 FOOT SURGERY HX 11/13/2011 left foot HEART SURGERY HX 10/23/2010 aortic valve replacement LAMINECTOMY W/O FFD 04/15 VERT SEG LUMBAR 04/14/1981 Laminectomy, lumbar LIG/TRNSXJ FLP TUBE ABDL/VAG APPR UNI/BI 04/14/1975 Tubal ligation PAST SURGICAL HISTORY OF 09/06/2005 heart cath PAST SURGICAL HISTORY OF 09/16/2005 RIVAS PAST SURGICAL HISTORY OF 10/12/2002 heart cath PAST SURGICAL HISTORY OF Back repair of hernited disc l-5 REPAIR RECTOCELE SEPARATE PROCEDURE 04/14/1994 with cystocele rectrocele SHOULDER SURGERY HX 04/14/2008 TOTAL ABDOMINAL HYSTERECT W/WO RMVL TUBE OVARY 04/14/1978 Hysterectomy, MIYA, ovaries remain Social History Tobacco Use Smoking status: Never Smoker Smokeless tobacco: Never Used Vaping Use Vaping Use: Never used Substance Use Topics Alcohol use: Yes Comment: Socially Drug use: No Physical Exam There were no vitals taken for this visit. PHYSICAL EXAM: FEMALE Vital signs: Ht 170.2 cm (5' 7) Wt 89.8 kg (198 lb) BMI 31.01 kg/m General Appearance: Normal, No acute distress, well nourished GENITALIA FEMALE EXAM: External Genitalia: Normal, no atrophy, no rash Urethral Meatus: Normal, no prolapse or caruncle Urethra: No mass, no tenderness and no diverticulum. Urethral angle: >30 degrees Stress incontinence on exam: no Bladder:No cystocele, bladder empty, no masses Vagina: Enterocele: To hymen Rectocele: At introitus Adnexa: No palpable mass; no cysts; no tenderness Anus/Perineum: Deferred Levator tenderness: no ASSESSMENT/PLAN: (N81.5) Vaginal enterocele (primary encounter diagnosis) Plan: BLADDER SCAN (N39.41) Urge incontinence (R39.15) Urgency of urination (N81.6) Rectocele We discussed obtaining urodynamics and potential surgical correction in the future. She has tried apessary and was unable to hold it. We will plan follow-up after urodynamics. [facility] of Past illness Narrative* Problem Noted Date Resolved Date Thrombocytopenia 10/25/2010 10/27/2010 Overview: Plt 1194 K, no evidence of bleeding. continue asa HTN (hypertension) 10/23/2010 10/24/2010 Overview: 10/24/2010 able to titrate off nitroprusside , orthostatic hypotension with transfer to chair-IV fluid replacement Pre-op testing 10/22/2010 10/24/2010 Overview: Images from the original note were not included. [facility] Surgeon: Manolo Perera M.D. Informed Consent Completed: Yes STS Score: 0.8% CAD: No Is intended procedure a CABG: No - is a beta daniel ordered? No - reason: not indictaed H & P completed: Yes 10/22 PA/LAT: Completed CT: N/A MRI: N/A LE US: N/A Cath: Yes - reviewed: Yes Echo:Completed EKG: Completed EF %: 65 PI's: N/A Carotid: N/A Mapping: N/A Dental: Completed PFT's: N/A Basename 10/22/10 0725 WBC 6.69 HB 14.0 HCT 41.1 PLT 240 INR 1.0 CREAT -- UA: Normal HCG:N/A ABO/ABO Confirmed: Yes Blood ordered: No SA Swab: Yes - results: Pending Last Dose of Anticoagulation: None Op Note: N/A Pacemaker Check: N/A Consults: None DM: No Cardiac Surgical prep: N/A SIGNATURE: LINDA Booker RN CHECKED BY: CHOLO DATE of SERVICE: 10/22/2010 TIME of SERVICE: 9:16 AM documented as of this encounter (statuses as of 07/24/2021) [facility] of Past illness Narrative* Problem Noted Date Resolved Date Thrombocytopenia 10/25/2010 10/27/2010 Overview: Plt 1194 K, no evidence of bleeding. continue asa HTN (hypertension) 10/23/2010 10/24/2010 Overview: 10/24/2010 able to titrate off nitroprusside , orthostatic hypotension with transfer to chair-IV fluid replacement Pre-op testing 10/22/2010 10/24/2010 Overview: Images from the original note were not included. [facility] Surgeon: Manolo Perera M.D. Informed Consent Completed: Yes STS Score: 0.8% CAD: No Is intended procedure a CABG: No - is a beta daniel ordered? No - reason: not indictaed H & P completed: Yes 10/22 PA/LAT: Completed CT: N/A MRI: N/A LE US: N/A Cath: Yes - reviewed: Yes Echo:Completed EKG: Completed EF %: 65 PI's: N/A Carotid: N/A Mapping: N/A Dental: Completed PFT's: N/A Basename 10/22/10 0725 WBC 6.69 HB 14.0 HCT 41.1 PLT 240 INR 1.0 CREAT -- UA: Normal HCG:N/A ABO/ABO Confirmed: Yes Blood ordered: No SA Swab: Yes - results: Pending Last Dose of Anticoagulation: None Op Note: N/A Pacemaker Check: N/A Consults: None DM: No Cardiac Surgical prep: N/A SIGNATURE: LINDA Booker RN CHECKED BY: CHOLO DATE of SERVICE: 10/22/2010 TIME of SERVICE: 9:16 AM documented as of this encounter (statuses as of 09/20/2021) [facility] illness Narrative* Problem Noted Date Resolved Date Thrombocytopenia 10/25/2010 10/27/2010 Overview: Plt 1194 K, no evidence of bleeding. continue asa HTN (hypertension) 10/23/2010 10/24/2010 Overview: 10/24/2010 able to titrate off nitroprusside , orthostatic hypotension with transfer to chair-IV fluid replacement Pre-op testing 10/22/2010 10/24/2010 Overview: Images from the original note were not included. [facility] Surgeon: Manolo Perera M.D. Informed Consent Completed: Yes STS Score: 0.8% CAD: No Is intended procedure a CABG: No - is a beta daniel ordered? No - reason: not indictaed H & P completed: Yes 10/22 PA/LAT: Completed CT: N/A MRI: N/A LE US: N/A Cath: Yes - reviewed: Yes Echo:Completed EKG: Completed EF %: 65 PI's: N/A Carotid: N/A Mapping: N/A Dental: Completed PFT's: N/A Basename 10/22/10 0725 WBC 6.69 HB 14.0 HCT 41.1 PLT 240 INR 1.0 CREAT -- UA: Normal HCG:N/A ABO/ABO Confirmed: Yes Blood ordered: No SA Swab: Yes - results: Pending Last Dose of Anticoagulation: None Op Note: N/A Pacemaker Check: N/A Consults: None DM: No Cardiac Surgical prep: N/A SIGNATURE: LINDA Booker RN CHECKED BY: CHOLO DATE of SERVICE: 10/22/2010 TIME of SERVICE: 9:16 AM documented as of this encounter (statuses as of 09/26/2021) [facility] Narrative* Problem Noted Date Resolved Date Thrombocytopenia 10/25/2010 10/27/2010 Overview: Plt 1194 K, no evidence of bleeding. continue asa HTN (hypertension) 10/23/2010 10/24/2010 Overview: 10/24/2010 able to titrate off nitroprusside , orthostatic hypotension with transfer to chair-IV fluid replacement Pre-op testing 10/22/2010 10/24/2010 Overview: Images from the original note were not included. [facility] Surgeon: Manolo Perera M.D. Informed Consent Completed: Yes STS Score: 0.8% CAD: No Is intended procedure a CABG: No - is a beta daniel ordered? No - reason: not indictaed H & P completed: Yes 10/22 PA/LAT: Completed CT: N/A MRI: N/A LE US: N/A Cath: Yes - reviewed: Yes Echo:Completed EKG: Completed EF %: 65 PI's: N/A Carotid: N/A Mapping: N/A Dental: Completed PFT's: N/A Basename 10/22/10 0725 WBC 6.69 HB 14.0 HCT 41.1 PLT 240 INR 1.0 CREAT -- UA: Normal HCG:N/A ABO/ABO Confirmed: Yes Blood ordered: No SA Swab: Yes - results: Pending Last Dose of Anticoagulation: None Op Note: N/A Pacemaker Check: N/A Consults: None DM: No Cardiac Surgical prep: N/A SIGNATURE: LINDA Booker RN CHECKED BY: CHOLO DATE of SERVICE: 10/22/2010 TIME of SERVICE: 9:16 AM documented as of this encounter (statuses as of 09/26/2021) [facility] Narrative* Problem Noted Date Resolved Date Thrombocytopenia 10/25/2010 10/27/2010 Overview: Plt 1194 K, no evidence of bleeding. continue asa HTN (hypertension) 10/23/2010 10/24/2010 Overview: 10/24/2010 able to titrate off nitroprusside , orthostatic hypotension with transfer to chair-IV fluid replacement Pre-op testing 10/22/2010 10/24/2010 Overview: Images from the original note were not included. [facility] Surgeon: Manolo Perera M.D. Informed Consent Completed: Yes STS Score: 0.8% CAD: No Is intended procedure a CABG: No - is a beta daniel ordered? No - reason: not indictaed H & P completed: Yes 10/22 PA/LAT: Completed CT: N/A MRI: N/A LE US: N/A Cath: Yes - reviewed: Yes Echo:Completed EKG: Completed EF %: 65 PI's: N/A Carotid: N/A Mapping: N/A Dental: Completed PFT's: N/A Basename 10/22/10 0725 WBC 6.69 HB 14.0 HCT 41.1 PLT 240 INR 1.0 CREAT -- UA: Normal HCG:N/A ABO/ABO Confirmed: Yes Blood ordered: No SA Swab: Yes - results: Pending Last Dose of Anticoagulation: None Op Note: N/A Pacemaker Check: N/A Consults: None DM: No Cardiac Surgical prep: N/A SIGNATURE: LINDA Booker RN CHECKED BY: CHOLO DATE of SERVICE: 10/22/2010 TIME of SERVICE: 9:16 AM documented as of this encounter (statuses as of 09/27/2021) [facility] Narrative* Problem Noted Date Resolved Date Thrombocytopenia 10/25/2010 10/27/2010 Overview: Plt 1194 K, no evidence of bleeding. continue asa HTN (hypertension) 10/23/2010 10/24/2010 Overview: 10/24/2010 able to titrate off nitroprusside , orthostatic hypotension with transfer to chair-IV fluid replacement Pre-op testing 10/22/2010 10/24/2010 Overview: Images from the original note were not included. [facility] Surgeon: Manolo Perera M.D. Informed Consent Completed: Yes STS Score: 0.8% CAD: No Is intended procedure a CABG: No - is a beta daniel ordered? No - reason: not indictaed H & P completed: Yes 10/22 PA/LAT: Completed CT: N/A MRI: N/A LE US: N/A Cath: Yes - reviewed: Yes Echo:Completed EKG: Completed EF %: 65 PI's: N/A Carotid: N/A Mapping: N/A Dental: Completed PFT's: N/A Basename 10/22/10 0725 WBC 6.69 HB 14.0 HCT 41.1 PLT 240 INR 1.0 CREAT -- UA: Normal HCG:N/A ABO/ABO Confirmed: Yes Blood ordered: No SA Swab: Yes - results: Pending Last Dose of Anticoagulation: None Op Note: N/A Pacemaker Check: N/A Consults: None DM: No Cardiac Surgical prep: N/A SIGNATURE: LINDA Booker RN CHECKED BY: CHOLO DATE of SERVICE: 10/22/2010 TIME of SERVICE: 9:16 AM documented as of this encounter (statuses as of 10/13/2021) [facility] Narrative* Problem Noted Date Resolved Date Thrombocytopenia 10/25/2010 10/27/2010 Overview: Plt 1194 K, no evidence of bleeding. continue asa HTN (hypertension) 10/23/2010 10/24/2010 Overview: 10/24/2010 able to titrate off nitroprusside , orthostatic hypotension with transfer to chair-IV fluid replacement Pre-op testing 10/22/2010 10/24/2010 Overview: Images from the original note were not included. [facility] Surgeon: Manolo Perera M.D. Informed Consent Completed: Yes STS Score: 0.8% CAD: No Is intended procedure a CABG: No - is a beta daniel ordered? No - reason: not indictaed H & P completed: Yes 10/22 PA/LAT: Completed CT: N/A MRI: N/A LE US: N/A Cath: Yes - reviewed: Yes Echo:Completed EKG: Completed EF %: 65 PI's: N/A Carotid: N/A Mapping: N/A Dental: Completed PFT's: N/A Basename 10/22/10 0725 WBC 6.69 HB 14.0 HCT 41.1 PLT 240 INR 1.0 CREAT -- UA: Normal HCG:N/A ABO/ABO Confirmed: Yes Blood ordered: No SA Swab: Yes - results: Pending Last Dose of Anticoagulation: None Op Note: N/A Pacemaker Check: N/A Consults: None DM: No Cardiac Surgical prep: N/A SIGNATURE: LINDA Booker RN CHECKED BY: CHOLO DATE of SERVICE: 10/22/2010 TIME of SERVICE: 9:16 AM documented as of this encounter (statuses as of 11/12/2021) [facility] Narrative* Problem Noted Date Resolved Date Thrombocytopenia 10/25/2010 10/27/2010 Overview: Plt 1194 K, no evidence of bleeding. continue asa HTN (hypertension) 10/23/2010 10/24/2010 Overview: 10/24/2010 able to titrate off nitroprusside , orthostatic hypotension with transfer to chair-IV fluid replacement Pre-op testing 10/22/2010 10/24/2010 Overview: Images from the original note were not included. [facility] Surgeon: Manolo Perera M.D. Informed Consent Completed: Yes STS Score: 0.8% CAD: No Is intended procedure a CABG: No - is a beta daniel ordered? No - reason: not indictaed H & P completed: Yes 10/22 PA/LAT: Completed CT: N/A MRI: N/A LE US: N/A Cath: Yes - reviewed: Yes Echo:Completed EKG: Completed EF %: 65 PI's: N/A Carotid: N/A Mapping: N/A Dental: Completed PFT's: N/A Basename 10/22/10 0725 WBC 6.69 HB 14.0 HCT 41.1 PLT 240 INR 1.0 CREAT -- UA: Normal HCG:N/A ABO/ABO Confirmed: Yes Blood ordered: No SA Swab: Yes - results: Pending Last Dose of Anticoagulation: None Op Note: N/A Pacemaker Check: N/A Consults: None DM: No Cardiac Surgical prep: N/A SIGNATURE: LINDA Booker RN CHECKED BY: CHOLO DATE of SERVICE: 10/22/2010 TIME of SERVICE: 9:16 AM documented as of this encounter (statuses as of 11/13/2021) [facility] Narrative* Problem Noted Date Resolved Date Thrombocytopenia 10/25/2010 10/27/2010 Overview: Plt 1194 K, no evidence of bleeding. continue asa Pre-op testing 10/22/2010 10/24/2010 Overview: Images from the original note were not included. [facility] Surgeon: Manolo Perera M.D. Informed Consent Completed: Yes STS Score: 0.8% CAD: No Is intended procedure a CABG: No - is a beta daniel ordered? No - reason: not indictaed H & P completed: Yes 10/22 PA/LAT: Completed CT: N/A MRI: N/A LE US: N/A Cath: Yes - reviewed: Yes Echo:Completed EKG: Completed EF %: 65 PI's: N/A Carotid: N/A Mapping: N/A Dental: Completed PFT's: N/A Basename 10/22/10 0725 WBC 6.69 HB 14.0 HCT 41.1 PLT 240 INR 1.0 CREAT -- UA: Normal HCG:N/A ABO/ABO Confirmed: Yes Blood ordered: No SA Swab: Yes - results: Pending Last Dose of Anticoagulation: None Op Note: N/A Pacemaker Check: N/A Consults: None DM: No Cardiac Surgical prep: N/A SIGNATURE: LINDA Booker RN CHECKED BY: CHOLO DATE of SERVICE: 10/22/2010 TIME of SERVICE: 9:16 AM documented as of this encounter (statuses as of 12/18/2021) [facility] Narrative* Problem Noted Date Resolved Date Thrombocytopenia 10/25/2010 10/27/2010 Overview: Plt 1194 K, no evidence of bleeding. continue asa Pre-op testing 10/22/2010 10/24/2010 Overview: Images from the original note were not included. [facility] Surgeon: Manolo Perera M.D. Informed Consent Completed: Yes STS Score: 0.8% CAD: No Is intended procedure a CABG: No - is a beta daniel ordered? No - reason: not indictaed H & P completed: Yes 10/22 PA/LAT: Completed CT: N/A MRI: N/A LE US: N/A Cath: Yes - reviewed: Yes Echo:Completed EKG: Completed EF %: 65 PI's: N/A Carotid: N/A Mapping: N/A Dental: Completed PFT's: N/A Basename 10/22/10 0725 WBC 6.69 HB 14.0 HCT 41.1 PLT 240 INR 1.0 CREAT -- UA: Normal HCG:N/A ABO/ABO Confirmed: Yes Blood ordered: No SA Swab: Yes - results: Pending Last Dose of Anticoagulation: None Op Note: N/A Pacemaker Check: N/A Consults: None DM: No Cardiac Surgical prep: N/A SIGNATURE: LINDA Booker RN CHECKED BY: CHOLO DATE of SERVICE: 10/22/2010 TIME of SERVICE: 9:16 AM documented as of this encounter (statuses as of 01/02/2022) [facility] Narrative* Problem Noted Date Resolved Date Thrombocytopenia 10/25/2010 10/27/2010 Overview: Plt 1194 K, no evidence of bleeding. continue asa Pre-op testing 10/22/2010 10/24/2010 Overview: Images from the original note were not included. [facility] Surgeon: Manolo Perera M.D. Informed Consent Completed: Yes STS Score: 0.8% CAD: No Is intended procedure a CABG: No - is a beta daniel ordered? No - reason: not indictaed H & P completed: Yes 10/22 PA/LAT: Completed CT: N/A MRI: N/A LE US: N/A Cath: Yes - reviewed: Yes Echo:Completed EKG: Completed EF %: 65 PI's: N/A Carotid: N/A Mapping: N/A Dental: Completed PFT's: N/A Basename 10/22/10 0725 WBC 6.69 HB 14.0 HCT 41.1 PLT 240 INR 1.0 CREAT -- UA: Normal HCG:N/A ABO/ABO Confirmed: Yes Blood ordered: No SA Swab: Yes - results: Pending Last Dose of Anticoagulation: None Op Note: N/A Pacemaker Check: N/A Consults: None DM: No Cardiac Surgical prep: N/A SIGNATURE: LINDA Booker RN CHECKED BY: CHOLO DATE of SERVICE: 10/22/2010 TIME of SERVICE: 9:16 AM documented as of this encounter (statuses as of 02/07/2022) [facility] Past [facility] Narrative* Problem Noted Date Resolved Date Thrombocytopenia 10/25/2010 10/27/2010 Overview: Plt 1194 K, no evidence of bleeding. continue asa Pre-op testing 10/22/2010 10/24/2010 Overview: Images from the original note were not included. [facility] Surgeon: Manolo Perera M.D. Informed Consent Completed: Yes STS Score: 0.8% CAD: No Is intended procedure a CABG: No - is a beta daniel ordered? No - reason: not indictaed H & P completed: Yes 10/22 PA/LAT: Completed CT: N/A MRI: N/A LE US: N/A Cath: Yes - reviewed: Yes Echo:Completed EKG: Completed EF %: 65 PI's: N/A Carotid: N/A Mapping: N/A Dental: Completed PFT's: N/A Basename 10/22/10 0725 WBC 6.69 HB 14.0 HCT 41.1 PLT 240 INR 1.0 CREAT -- UA: Normal HCG:N/A ABO/ABO Confirmed: Yes Blood ordered: No SA Swab: Yes - results: Pending Last Dose of Anticoagulation: None Op Note: N/A Pacemaker Check: N/A Consults: None DM: No Cardiac Surgical prep: N/A SIGNATURE: LINDA Booker RN CHECKED BY: CHOLO DATE of SERVICE: 10/22/2010 TIME of SERVICE: 9:16 AM documented as of this encounter (statuses as of 03/22/2022) [facility]07-14-2011 History of Past illness Narrative* Problem Noted Date Resolved Date Thrombocytopenia 10/25/2010 10/27/2010 Overview: Plt 1194 K, no evidence of bleeding. continue asa Pre-op testing 10/22/2010 10/24/2010 Overview: Images from the original note were not included. [facility] PRE[facility] Surgeon: Manolo Perera M.D. Informed Consent Completed: Yes STS Score: 0.8% CAD: No Is intended procedure a CABG: No - is a beta daniel ordered? No - reason: not indictaed H & P completed: Yes 10/22 PA/LAT: Completed CT: N/A MRI: N/A LE US: N/A Cath: Yes - reviewed: Yes Echo:Completed EKG: Completed EF %: 65 PI's: N/A Carotid: N/A Mapping: N/A Dental: Completed PFT's: N/A Basename 10/22/10 0725 WBC 6.69 HB 14.0 HCT 41.1 PLT 240 INR 1.0 CREAT -- UA: Normal HCG:N/A ABO/ABO Confirmed: Yes Blood ordered: No SA Swab: Yes - results: Pending Last Dose of Anticoagulation: None Op Note: N/A Pacemaker Check: N/A Consults: None DM: No Cardiac Surgical prep: N/A SIGNATURE: LINDA Booker RN CHECKED BY: CHOLO DATE of SERVICE: 10/22/2010 TIME of SERVICE: 9:16 AM documented as of this encounter (statuses as of 03/28/2022) [facility]07-14-2011 History of Past illness Narrative* Problem Noted Date Diagnosed Date Resolved Date Thrombocytopenia 10/25/2010 10/27/2010 Overview: Plt 1194 K, no evidence of bleeding. continue asa Pre-op testing 10/22/2010 10/24/2010 Overview: Images from the original note were not included. [facility] PRE-OP CHECKLIST Surgeon: Manolo Perera M.D. Informed Consent Completed: Yes STS Score: 0.8% CAD: No Is intended procedure a CABG: No - is a beta daniel ordered? No - reason: not indictaed H & P completed: Yes 10/22 PA/LAT: Completed CT: N/A MRI: N/A LE US: N/A Cath: Yes - reviewed: Yes Echo:Completed EKG: Completed EF %: 65 PI's: N/A Carotid: N/A Mapping: N/A Dental: Completed PFT's: N/A Basename 10/22/10 0725 WBC 6.69 HB 14.0 HCT 41.1 PLT 240 INR 1.0 CREAT -- UA: Normal HCG:N/A ABO/ABO Confirmed: Yes Blood ordered: No SA Swab: Yes - results: Pending Last Dose of Anticoagulation: None Op Note: N/A Pacemaker Check: N/A Consults: None DM: No Cardiac Surgical prep: N/A SIGNATURE: LINDA Booker RN CHECKED BY: CHOLO DATE of SERVICE: 10/22/2010 TIME of SERVICE: 9:16 AM documented as of this encounter (statuses as of 02/15/2023) [facility]07-14-2011 History of Past illness Narrative* Problem Noted Date Diagnosed Date Resolved Date Thrombocytopenia 10/25/2010 10/27/2010 Overview: Plt 1194 K, no evidence of bleeding. continue asa Pre-op testing 10/22/2010 10/24/2010 Overview: Images from the original note were not included. [facility] Surgeon: Manolo Perera M.D. Informed Consent Completed: Yes STS Score: 0.8% CAD: No Is intended procedure a CABG: No - is a beta daniel ordered? No - reason: not indictaed H & P completed: Yes 10/22 PA/LAT: Completed CT: N/A MRI: N/A LE US: N/A Cath: Yes - reviewed: Yes Echo:Completed EKG: Completed EF %: 65 PI's: N/A Carotid: N/A Mapping: N/A Dental: Completed PFT's: N/A Basename 10/22/1025 WBC 6.69 HB 14.0 HCT 41.1 PLT 240 INR 1.0 CREAT -- UA: Normal HCG:N/A ABO/ABO Confirmed: Yes Blood ordered: No SA Swab: Yes - results: Pending Last Dose of Anticoagulation: None Op Note: N/A Pacemaker Check: N/A Consults: None DM: No Cardiac Surgical prep: N/A SIGNATURE: LINDA Booker RN CHECKED BY: CHOLO DATE of SERVICE: 10/22/2010 TIME of SERVICE: 9:16 AM documented as of this encounter (statuses as of 04/08/2023) [facility]07-12-2011 Evaluation note* Diagnosis Onset Date Resolution Status Hyperlipidemia chronic History of aortic valve repl acement with bioprosthetic valve October 23, 2010 resolved [facility] Work Phone: 1(711) 205-607407-12-2011 Evaluation note* Diagnosis Onset Date Resolution Status Chest pain acute Essential hypertension acute Hyperlipidemia chronic History of aortic valve repl acement with bioprosthetic valve October 23, 2010 resolved [facility] Work Phone: 1(166) 263-383507-12-2011 Evaluation note* Diagnosis Onset Date Resolution Status Essential hypertension acute New onset atrial fibrillation acute Hyperlipidemia chronic History of aortic valve repl acement with bioprosthetic valve October 23, 2010 resolved [facility] Work Phone: 1(505) 117-891307-12-2011 Evaluation note* Diagnosis Onset Date Resolution Status Essential hypertension acute PAF (paroxysmal atrial fibrillation) acute Hyperlipidemia chronic History of aortic valve repl acement with bioprosthetic valve October 23, 2010 resolved [facility] Work Phone: Evaluation note* Diagnosis Vaginal enterocele- Primary Vaginal enterocele, congenital or acquired Urge incontinence Urgency of urination Rectocele documented in this encounter [facility] Work Phone: Evaluation note* Diagnosis Urge incontinence- Primary [facility] Diagnosis Urgency of urination- Primary [facility] Diagnosis Prolapse of vaginal vault after hysterectomy- Primary Stress incontinence Female stress incontinence Rectocele [facility]* Diagnosis Urgency of urination- Primary Prolapse of vaginal vault after hysterectomy Stress incontinence Female stress incontinence Rectocele Prolapse of vaginal vault after hysterectomy Stress incontinence Female stress incontinence Rectocele Stress incontinence, female Female stress incontinence [facility] Diagnosis Urgency of urination- Primary [facility]* Diagnosis Encounter for screening mammogram for malignant neoplasm of breast- Primary Other screening mammogram [facility]* Diagnosis Encounter for screening mammogram for malignant neoplasm of breast Other screening mammogram [facility]* Diagnosis Encounter for screening mammogram for malignant neoplasm of breast- Primary Other screening mammogram Encounter for screening mammogram for malignant neoplasm of breast Other screening mammogram [facility] Diagnosis Left wrist pain Pain in joint, forearm [facility] Diagnosis Encounter for screening mammogram for malignant neoplasm of breast- Primary Other screening mammogram [facility] Diagnosis Encounter for gynecological examination (general) (routine) without abnormal findings- Primary Encounter for screening mammogram for breast cancer [facility] Diagnosis Encounter for gynecological examination (general) (routine) without abnormal findings Encounter for screening mammogram for breast cancer [facility] Author Ileana Beltrán [facility] Note Date/Time January 20, 2025 11 :50am [facility] [address] [place] [address] OFFICE VISIT Date of Service: 01/20/25 MR#: [id number] Acct: [id number] Name: FABRICE MOON Rep #: [id number] : 1945 Provider: SIS Chong Age/Sex: 79/F Location: [facility] Status: Signed HPI HPI History of Present Illness Details: The patient is an 79-year-old female with a history of aortic valve disease s/p bioprosthetic aortic valve replacement in 2010, HTN, HLD, iron deficiency anemia, atrial fibrillation s/p cardioversion in 12/2022, and ILEANA, presenting forfollow- up. She reports ongoing issues with her foot since the end of June, which has led to worsening back pain. She has been using a cast and boots for her foot and recently completed physical therapy. Her orthopedic surgeon has advised against surgery due to her age and anticoagulation with Eliquis. She notes that her backpain is not as well controlled as before, and the efficacy of her usual back injections has diminished. She is currently taking Eliquis 5 mg BID, metoprolol 12.5 mg BID, and spironolactone 25 mg daily. She is also being treated for a UTI and reports increased urinary frequency due to an overactive bladder. She denies any irregular heartbeats, lightheadedness, or dizziness, but does report occasional shakiness, which she attributes to her foot and back issues. She is compliant with her CPAP therapy for ILEANA. Intake Vital Signs 07/20/24 11:01 12/29/24 11:52 01/20/25 08:51 Height 5 ft 5 in 5 ft 5 in 5 ft 5 in Weight: 184 lb BMI 30.6 BP 113/71 Blood Pressure Location Lt brachial Position Sitting Respiration 16 Pulse 52 L Pulse Source Monitor Pulse Oximetry (%) 94 Oxygen Delivery Method room air Intake Visit Reasons: 6 M Ssis Architect Required: No Accompanied by: Self Is patient in pain?: Yes Allergies amitriptyline (From Elavil) Adverse Reaction (Severe, Verified 01/20/25 11:17) Unknown tramadol Adverse Reaction (Severe, Verified 01/20/25 11:17) Unknown valdecoxib (From Bextra) Adverse Reaction (Severe, Verified 01/20/25 11:17) Unknown amlodipine Adverse Reaction (Intermediate, Verified 01/20/25 11:17) Foot and ankle edema Medications ?Medication ?Instructions ?Recorded ?Confirmed ?Type coenzyme Q10 100 mg tablet 100 mg PO QDAY #90 tabs 11/2901/20/25 Rx levothyroxine 137 mcg tablet 112 mcg PO DAILY 01/07/23 01/20/25 History fesoterodine 4 mg tablet,extended 4 mg PO QDAY 4 01/20/25 History release 24 hr (Toviaz) cholecalciferol (vitamin D3) 50 4,000 unit PO QDAY 12/0601/20/25 History mcg (2,000 unit) tablet hydrocodone-acetaminophen 5-325mg 1 tab PO QHS PRN 12/0601/20/25 History 5mg-325mg spironolactone 25 mg tablet 25 mg PO DAILY #90 TABLETS 09/29/24 01/20/25 Rx metoprolol tartrate 25 mg tablet 12.5 mg (1/2 x 25 mg) PO BID dose 12/22/24 01/20/25 Rx has been decreased. #90 tabs vibegron 75 mg tablet (Gemtesa) 75 mg PO QDAY 12/29/24 01/20/25 History cefdinir 300 mg capsule 300 mg PO BID #14 caps 01/1701/20/25 Rx apixaban 5 mg tablet (Eliquis) 5 mg PO BID #180 tabs 1 01/20/25 Rx [id number] intramuscular ea IM 01/20/25 5 History trazodone 100 mg tablet 100 mg PO QHS 01/20/2501/20 History Ejection fraction %: 65 Have you fallen in the past year?: No Nurse's Note: Pt has an episode about once a month where she wakes up with a funny feeling in the midsternal area of her chest. She said she's not sure what it is, but shegets up and takes a shot of apple cider vinegar with water and it goes away. Pt has an overactive bladder and sleep apnea and she doesn't sleep well. She blames her fatigue on this. [facility] Medical History PAF (paroxysmal atrial fibrillation) New onset atrial fibrillation Fibromyalgia Obesity Hypothyroidism Nonrheumatic aortic (valve) stenosis Bicuspid aortic valve Hyperlipidemia Obstructive sleep apnea Surgical History History of ankle surgery Hx of shoulder surgery History of foot surgery History of lumbar surgery History of bladder suspension procedure History of hysterectomy History of left heart catheterization (09/06/10) History of aortic valve replacement with bioprosthetic valve (10/23/10) Family History Father Lung cancer Mother Cancer kidney cancer Heart disease PPM Social History Smoking Status: Never smoker ROS Const Const: Positive for fatigue; Negative for weakness or headache(s) Eyes Eyes: Negative for change in vision ENT ENT: Positive for balance problems; Negative for headache(s), dizziness or Nosebleed/epistaxis Cardio Chest Pain: No Palpitations: No Edema: Right (Right is worse. PCP did a doppler and it was abn flow and a Patten's cyst) and Bilateral Resp Respiratory: Negative for SOB with activity GI GI: Negative nausea, vomiting, heartburn or bright, red blood in stools : Positive for hematuria (Pt has a UTI currently) Musc Musc: Positive for muscle aches/ myalgia, joint pain and balance problems Skin Skin: Positive for unusual bruising Neuro Neuro: Negative for dizziness, lightheadedness, syncope, headache(s) or weakness Endo Endo: Positive for fatigue Cardiology Exam Const Appearance: cooperative, healthy appearing, comfortable, no acute distress and well developed Nutritional Appearance: obese Orientation: alert, awake and oriented x3 Head Head: normal to inspection Ears: hearing grossly normal bilaterally Nose: external nose normal Face and Sinus: face symmetric Eyes General: appearance normal, both eyes and all related structures Eyelids: eyelids normal Conjunctivae: conjunctivae normal Pupils: PERRL EOM: EOM intact bilaterally Neck Neck: normal visual inspection; Negative no JVD Carotids: Negative bruit Chest Chest inspection: normal inspection of the chest Auscultation: Bilateral: Clear to Auscultation Cardio Palpation: normal PMI Rate: regular rate Rhythm: regular rhythm Heart sounds: S1 normal, S2 normal and murmur; Negative rub or gallop Murmur: Grade 2/6, harsh and mid systolic GI GI: normal to inspection, soft and obese Neuro General: patient alert, patient awake, patient oriented x3 and CN's II-XI intactbilaterally Extremities Pulses: Normal: Right Posterior Tibial Pulse, Left Posterior Tibial Pulse, RightRadial Pulse and Left Radial Pulse Lower Extremity Edema: None: Bilateral Psych Psychological: normal affect Supplemental Info Supplemental Information Echocardiogram 07/22/2024: Interpretation Summary Normal LV size. Left ventricular systolic function is normal. Bioprosthetic aortic valve. Moderate concentric left ventricular hypertrophy. The left ventricular ejection fraction is 65 %. Mean aortic valve gradient 18 mmHg. Compared to the previous the above is unchanged. Echocardiogram 05/2022: Normal LV size. Left ventricular systolic function is normal. The estimated ejection fraction is 55 %. Normal prosthetic aortic valve. Mild concentric left ventricular hypertrophy. Stage 2 diastolic dysfunction. Mean aortic valve gradient 18 mmHg. Pharmacologic myocardial perfusion stress test 06/2022 77-year-old lady with a history of chest pain and coronary disease Resting EKG demonstrates sinus bradycardia with a rate of 52 bpm.? Resting bloodpressure is 134/80 mmHg.? 0.4 mg of regadenoson was infused per usual protocol followed by rapid intravenous saline flush injection.? Continuous EKG monitoringwas performed.? The maximum heart rate was 60 bpm which was 42% of max impacted heart rate the maximum workload was 1 metabolic equivalent.? At rest there were no ST or T wave changes noted to suggest ischemia and at peak infusion nonspecific ST changes were noted which did not meet the criteria for ischemia.?? No clinical angina is noted.? The final blood pressure was 130/70 mmHg. Myocardial perfusion protocol. 10.9 mCi of technetium 99m sestamibi was injected at rest.? 0.4 mg of regadenoson was infused per usual protocol.? At peak infusion 33 mCi of technetium 99m sestamibi was injected stress images were obtained stress and rest images were reconstructed and compared in the short axis vertical long and horizontal long axis.? Gated images were also obtained. Perfusion SPECT analysis: Review of the stress images demonstrate normal uptake of tracer noted in all areas of the myocardium.? The resting images similar demonstrated normal uptake of tracer noted in all areas of the myocardium.? No areas of reversibility are noted to suggest ischemia and no previous infarct is noted. Gated SPECT analysis: The gated ejection fraction is 74%. Conclusion: Normal pharmacologic myocardial perfusion stress test. Preserved ejection fraction. Assessment and Plan Assessment and Plan (1) PAF (paroxysmal atrial fibrillation): Status: Acute (2) History of aortic valve replacement with bioprosthetic valve: Status: Resolved Comment: Aortic valve replacement with 23-mm Elaina-Pérez pericardial valve. 10/23/2010 (3) Essential hypertension: Status: Acute (4) Hyperlipidemia: Status: Chronic Qualifiers: Hyperlipidemia type: pure hypercholesterolemia Qualified Code(s): E78.00 - Pure hypercholesterolemia, unspecified; E78.0 - Pure hypercholesterolemia (5) Adequate anticoagulation on anticoagulant therapy: Status: Acute Medications: Changed 2 From apixaban (Eliquis) 5 mg PO BID 180 tabs 3RF To apixaban (Eliquis) Pts phone number [phone] Faxed to [facility] 5 mg PO BID 180 tabs 3RF Plan 1. PAF (paroxysmal atrial fibrillation): - Currently stable with no reported palpitations or irregular beats; remains in sinus rhythm on examination. - Continues metoprolol 12.5 mg twice daily for rate control. - Advised follow-up in 6 months or sooner if symptomatic. 2. Nonrheumatic aortic valve stenosis: - Echocardiogram in July 2024 revealed moderate concentric LVH with a mean aortic valve gradient of 18 mmHg; stenosis remains stable. - Will repeat echocardiogram next year to monitor valve function. 3. Presence of prosthetic heart valve: - Bioprosthetic aortic valve placed in 2010; function is presently acceptable per most recent echocardiogram. - Instructed to continue antibiotic prophylaxis for dental procedures. - Scheduled for cardiology follow-up in 6 months and visit with the cardiologistin 1 year. 4. Essential (primary) hypertension: - Well-controlled on current regimen of metoprolol 12.5 mg twice daily and spironolactone 25 mg daily. - No dose adjustments indicated at this time. 5. Pure hypercholesterolemia: 6. 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 - Refilled prescription and [facility]ed [facility] per patient?s request. - Reiterated importance of continued anticoagulation for stroke prevention givenatrial fibrillation history. 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) Coding Level of Care Code Off vis,est,level 4 Diagnoses PAF (paroxysmal atrial fibrillation) I48.0 History of aortic valve replacement with bioprosthetic valve Z95.3 Essential hypertension I10 Pure hypercholesterolemia E78.00; E78.0 Hyperlipidemia type: pure hypercholesterolemia Adequate anticoagulation on anticoagulant therapy Z79.01 Coding Level of Care Code Off vis,est,level 4 Diagnoses PAF (paroxysmal atrial fibrillation) I48.0 History of aortic valve replacement with bioprosthetic valve Z95.3 Essential hypertension I10 Pure hypercholesterolemia E78.00; E78.0 Hyperlipidemia type: pure hypercholesterolemia Adequate anticoagulation on anticoagulant therapy Z79.01 Clinical Quality Measures Falls Risk Screening/Assistive Devices Have you fallen in the past year?: No Cardiac Ejection fraction %: 65 01/20/25 1426 <Electronically signed by Ileana Dorsey> Date _ Ileana ALEGRE Cosigner Signature: Date (if applicable) CC: Dr. Micah Díaz, DO ~ [facility] Work Phone: Proewsnj note Author Lynn Christensen [facility] Note Date/Time January 26, 2025 1 1:38am [facility] [address], [address] [place] [address] OFFICE VISIT Date of Service: 01/26/25 MR#: [id number] Acct: [id number] Name: FABRICE MOON Rep #: [id number] : 1945 Provider: Dr. Kirk Christensen MD Age/Sex: 79/F Location: [facility] Status: Signed Intake Vital Signs 12/29/24 11:52 01/20/25 08:51 01/26/25 11:35 Height 5 ft 5 in 5 ft 5 in 5 ft 5 in Weight: 184 lb 184 lb BMI 30.6 30.6 BP 113/71 124/80 H Blood Pressure Location Lt brachial Position Sitting Respiration 16 Pulse 52 L 70 Pulse Source Monitor Temp 98.1 F Pulse Oximetry (%) 94 Oxygen Delivery Method room air Intake Visit Reasons: PTNS Chief Complaint: PTNS Ssis Architect Required: No Is patient in pain?: No Allergies amitriptyline (From Elavil) Adverse Reaction (Severe, Verified 01/20/25 11:17) Unknown tramadol Adverse Reaction (Severe, Verified 01/20/25 11:17) Unknown valdecoxib (From Bextra) Adverse Reaction (Severe, Verified 01/20/25 11:17) Unknown amlodipine Adverse Reaction (Intermediate, Verified 01/20/25 11:17) Foot and ankle edema Medications ?Medication ?Instructions ?Recorded ?Confirmed ?Type coenzyme Q10 100 mg tablet 100 mg PO QDAY #90 tabs 11/2901/26/25 Rx levothyroxine 137 mcg tablet 112 mcg PO DAILY 01/07/23 01/26/25 History fesoterodine 4 mg tablet,extended 4 mg PO QDAY 4 01/26/25 History release 24 hr (Toviaz) cholecalciferol (vitamin D3) 50 4,000 unit PO QDAY 12/0601/26/25 History mcg (2,000 unit) tablet hydrocodone-acetaminophen 5-325mg 1 tab PO QHS PRN 12/0601/26/25 History 5mg-325mg spironolactone 25 mg tablet 25 mg PO DAILY #90 TABLETS 09/29/24 01/26/25 Rx metoprolol tartrate 25 mg tablet 12.5 mg (1/2 x 25 mg) PO BID dose 12/22/24 01/26/25 Rx has been decreased. #90 tabs vibegron 75 mg tablet (Gemtesa) 75 mg PO QDAY 12/29/24 01/26/25 History apixaban 5 mg tablet (Eliquis) 5 mg PO BID #180 tabs 1 01/26/25 Rx [id number] intramuscular ea IM 01/20/25 5 History trazodone 100 mg tablet 100 mg PO QHS 01/20/2501/26 History Have you fallen in the past year?: No PFSH Medical History PAF (paroxysmal atrial fibrillation) New onset atrial fibrillation Fibromyalgia Obesity Hypothyroidism Nonrheumatic aortic (valve) stenosis Bicuspid aortic valve Hyperlipidemia Obstructive sleep apnea Surgical History History of ankle surgery Hx of shoulder surgery History of foot surgery History of lumbar surgery History of bladder suspension procedure History of hysterectomy History of left heart catheterization (09/06/10) History of aortic valve replacement with bioprosthetic valve (10/23/10) Family History Father Lung cancer Mother Cancer kidney cancer Heart disease PPM Social History Smoking Status: Never smoker HPI HPI Urology Chief Complaint: PTNS Details: FABRICE MOON, is a 79 F. She is voiding about 10-13 time during the day and 2-4 times at night. The incontinence is somewhat improving. She is going through 1-3 pads a day. She is continuing to work on level one management with diet, fluid control and bladder training. She is not having any issues with her skin or ankle after treatments. She is happy with this treatment plan. ROS Const Constitutional: No chills, fatigue, fever(s), headache(s), night sweats, weakness, weight change, abnormal sleep pattern or change in appetite Eyes Eyes: No change in vision ENT ENT: No headache(s) or dry mouth Resp Respiratory: No cough, chest congestion, shortness of breath or wheezing Cardio Cardiology: Positive for other (No chest pain.); No shortness of breath, irregular heart rhythm or lightheadedness Gastro GI: Positive for other (No nausea.); No abdominal pain, change in bowel habits, constipation, diarrhea or vomiting Musc Musculoskeletal: No abnormal gait Skin Skin: No yellowing of the eye, lesions, itchy eyes, rash or skin ulcer Neuro Neurology: No abnormal gait, confusion, dizziness, weakness, headache(s) or memory loss Psych Psychiatric: No abnormal sleep pattern, No change in appetite, No confusion and No memory loss Endo Endocrine: No fatigue, increased thirst/drinking or weight change Aller/Imm Allergy/Immunologic: No itchy eyes or wheezing Evan/Lymp Hematologic/Lymphatic: No easy bleeding, easy bruising or enlarged lymph nodes Exam Const General: cooperative, healthy appearing, comfortable and no acute distress HENPA Head: normocephalic and atraumatic Ears: hearing grossly normal bilaterally and external ears normal Nose: external nose normal Eyes General: appearance normal, both eyes and all related structures Neck Neck: normal visual inspection and trachea midline Chest Chest palpation & inspection: normal inspection of the chest Resp Effort & Inspection: normal respiratory effort, able to speak in complete sentences and symmetric chest movement Cardio Rate: regular rate GI Inspection: normal to inspection Palpation: soft and nontender General: No CVA tenderness Skin General: no rashes or lesions noted Neuro General: patient alert, patient awake, patient oriented x3 and CN's II-XI intactbilaterally Extrem General: normal to inspection Psych Appearance: grossly normal and well kempt Mental Status: mental status grossly normal Office Procedures PTNS Procedure Completed: Yes PTNS: Percutaneous tibial nerve stimulation (PTNS) was prescribed for overactive bladder symptoms of urinary urgency, frequency and urge incontinence.?The needleelectrode was inserted into the lower, inner aspect of the?left leg.?The surfaceelectrode was placed on the inside arch of the foot on the treatment leg.?The lead set was connected to the stimulator, and the needle electrode clip was connected to the needle electrode.?The stimulator that produces an adjustable electrical pulse that travels to the sacral nerve plexus via the tibial nerve was adjusted to a setting of 14. The voiding diary or patient's symptoms were reviewed prior the start of treatment.? Coding Level of Care Code No Charge Diagnoses Nocturia R35.1 Urge incontinence N39.41 Assessment and Plan Assessment and Plan (1) Nocturia: Status: Acute (2) Urge incontinence: Status: Acute Orders: Orders PTNS Today N39.41 - Urge incontinence, R35.1 - Nocturia Medications: Discontinued cefdinir Discontinued Reason: Pt no longer taking 300 mg PO BID 14 caps 0RF Plan Details Follow Up: 1 Week (PTNS) Clinical Quality Measures Falls Risk Screening/Assistive Devices Have you fallen in the past year?: No 01/26/25 8331 <Electronically signed by Lynn Christensen MD> Date _ Lynn Christensen MD Cosigner Signature: Date (if applicable) CC: ~ [email or web address] Work Phone: [employer] for referral (narrative)* Outpatient Procedure (Routine) - Pending Review Specialty Diagnoses / Procedures Referred By Ben garcia Referred To Contact [facility] Diagnoses Urge incontinence Procedures URODYNAMICS DEO POST-VOIDING RESIDUAL URINE&/BLADDER CAP Roxane Pineda MD [address] [place] [address] [address] Referral ID Status Reason Start Date Expiration Date Visits Requested Visits Authorized [id number] Pending Review Auto-Generat ed Referral 09/20/2021 09/20/2022 1 1 [facility] for referral (narrative)* Diagnostic Procedure Only (Routine) - Authorized Specialty Diagnoses / Procedures Referred By Contjarad garcia Referred To Contact [facility] Diagnoses Encounter for screening mammogram for malignant neoplasm of breast Procedures KAJAL SCREENING SCREENING MAMMOGRAPHY BI 2-VIEW BREAST INC Cassy Walden MD [address] [place] [address] [facility] [address] [place] [address] Referral ID Status Reason Start Date Expiration Date Visits Requested Visits Authorized [id number] Authorized Auto-Generat ed Referral 03/22/2022 04/21/2023 1 1 [facility] for referral (narrative)* Diagnostic Procedure Only (Routine) - Closed Specialty Diagnoses / Procedures Referred By Ben garcia Referred To Contact [facility] Diagnoses Encounter for screening mammogram for malignant neoplasm of breast Procedures KAJAL SCREENING SCREENING MAMMOGRAPHY BI 2-VIEW BREAST INC Cassy Walden MD [address] [place] [address] [facility] [address] [place] [address] Referral ID Status Reason Start Date Expiration Date V isits Requested Visits Authorized [id number] Closed Auto-Generate d Referral 03/22/2022 04/21/2023 1 1 [facility] for referral (narrative)* Diagnostic Procedure Only (Routine) - Closed Specialty Diagnoses / Procedures Referred By Ben garcia Referred To Contact [facility] Diagnoses Encounter for screening mammogram for malignant neoplasm of breast Procedures KAJAL SCREENING SCREENING MAMMOGRAPHY BI 2-VIEW BREAST INC Cassy Walden MD [address] [place] [address] [facility] [address] [place] [address] Referral ID Status Reason Start Date Expiration Date V isits Requested Visits Authorized [id number] Closed Auto-Generate d Referral 03/31/2023 04/29/2024 1 1 [facility] for referral (narrative)* Diagnostic Procedure Only (Urgent) - Closed Specialty Diagnoses / Procedures Referred By Ben t Referred To Contact [facility] Diagnoses Left wrist pain Procedures XR WRIST GENERAL 3V PA/LAT/OBL LEFT RADEX WRIST COMPLETE MINIMUM 3 VIEWS Saira Moore, [employer].LEGAL PROJECT MANAGER [address] [place] [address] [place] [address] Referral ID Status Reason Start Date Expiration Date V isits Requested Visits Authorized [id number] Closed Auto-Generate d Referral 04/20/2023 05/19/2024 1 1 [facility] for referral (narrative)* Diagnostic Procedure Only (Routine) - New Request Specialty Diagnoses / Procedures Referred By Ben garcia Referred To Contact [facility] Diagnoses Encounter for screening mammogram for malignant neoplasm of breast Procedures KAJAL SCREENING SCREENING MAMMOGRAPHY BI 2-VIEW BREAST INC Cassy Walden MD [address] [place] [address] [facility] [address] [place] [address] Referral ID Status Reason Start Date Expiration Date Visits Requested Visits Authorized [id number] New Request Auto-Generat ed Referral 04/25/2025 1 1 [facility] for referral (narrative)* Diagnostic Procedure Only (Routine) - Authorized Specialty Diagnoses / Procedures Referred By Kevinac t Referred To Contact [facility] Diagnoses Encounter for gynecological examination (general) (routine) without abnormal findings Encounter for screening mammogram for breast cancer Procedures KAJAL SCREENING W SYBIL SCREENING DIGITAL BREAST TOMOSYNTHESIS BI SCREENING MAMMOGRAPHY BI 2-VIEW BREAST INC Cassy Walden MD [address] [place] [address] [facility] [address] [place] [address] Referral ID Status Reason Start Date Expiration Date Visits Requested Visits Authorized [id number] Authorized Auto-Generat ed Referral 05/18/2024 06/17/2025 1 1 [facility] for referral (narrative)No reason for referral [facility]: Reason for visit Narrative* Diagnostic Procedure Only (Routine) - Closed Specialty Diagnoses / Procedures Referred By Contac t Referred To Contact [facility] Diagnoses Encounter for screening mammogram for malignant neoplasm of breast Procedures KAJAL SCREENING SCREENING MAMMOGRAPHY BI 2-VIEW BREAST INC Cassy Walden MD [address] [place] [id number] [facility] [address] [employer] [place] [address] Referral ID Status Reason Start Date Expiration Date V isits Requested Visits Authorized [id number] Closed Auto-Generate d Referral 03/22/2022 04/21/2023 1 1 [facility] for visit Narrative* Diagnostic Procedure Only (Urgent) - Closed Specialty Diagnoses / Procedures Referred By Contac t Referred To Contact XR IMAGING Diagnoses Left wrist pain Procedures XR WRIST GENERAL 3V PA/LAT/OBL LEFT RADEX WRIST COMPLETE MINIMUM 3 VIEWS Saira Moore, CONSTRUCTION SPECIALIST.LEGAL PROJECT MANAGER [address] [place] [address] Xr Imaging [facility]95 Referral ID Status Reason Start Date Expiration Date V isits Requested Visits Authorized [id number] Closed Auto-Generate d Referral 04/20/2023 05/19/2024 1 1 [facility] for visit Narrative* Diagnostic Procedure Only (Routine) - Closed Specialty Diagnoses / Procedures Referred By Contac t Referred To Contact [facility] Diagnoses Encounter for gynecological examination (general) (routine) without abnormal findings Encounter for screening mammogram for breast cancer Procedures KAJAL SCREENING W SYBIL SCREENING DIGITAL BREAST TOMOSYNTHESIS BI SCREENING MAMMOGRAPHY BI 2-VIEW BREAST INC Cassy Walden MD [address] [place] [id number] [facility] [address] [place] [address] Referral ID Status Reason Start Date Expiration Date V isits Requested Visits Authorized [id number] Closed Auto-Generate d Referral 05/18/2024 06/17/2025 1 1 [facility] Chief Complaint and Reason for Visit Chief Complaint 1 Y FU (MOVED FROM SO) CONGENITAL INSUF OF AORTIC VALVE BACK PAIN Reason for Visit Hyperlipidemia History of aortic valve replacement with bioprosthetic valve Chief Complaint BACK PAIN Chief Complaint 1 Y FU (MOVED FROM SO) PELVIC FLOOR RX HERE CP, EVAL VALVE REPLACEMENT CP, EVAL VALVE REPLACEMENT Reason for Visit Chest pain Essential hypertension Hyperlipidemia History of aortic valve replacement with bioprosthetic valve Chief Complaint 4 M FU PAPERWORK FOR DCCV PER MMM PELVIC FLOOR RX HERE A-FIB/INT LABS AND ORDER A-FIB/INT LABS AND ORDER A-FIB/INT LABS AND ORDER Reason for Visit Essential hypertensi on New onset atrial fibrillation Hyperlipidemia History of aortic valve replacement with bioprosthetic valve Chief Complaint 4 M FU PAPERWORK FOR DCCV PER MMM PELVIC FLOOR RX HERE A-FIB/INT LABS AND ORDER A-FIB/INT LABS AND ORDER A-FIB/INT LABS AND ORDER Atrial fibrillation AFIB Atrial fibrillation Atrial fibrillation Reason for Visit Essential hypertensi on New onset atrial fibrillation Hyperlipidemia History of aortic valve replacement with bioprosthetic valve Chief Complaint PAPERWORK FOR DCCV P ER MMM PELVIC FLOOR RX HERE A-FIB/INT LABS AND ORDER A-FIB/INT LABS AND ORDER A-FIB/INT LABS AND ORDER Atrial fibrillation AFIB Atrial fibrillation Atrial fibrillation 1 wk s/p DCCV 3 M FU Amaurosis fugax Reason for Visit Essential hypertensi on PAF (paroxysmal atrial fibrillation) Hyperlipidemia History of aortic valve replacement with bioprosthetic valve Chief Complaint Atrial fibrillation AFIB Atrial fibrillation Atrial fibrillation 1 wk s/p DCCV 3 M FU Amaurosis fugax Reason for Visit Essential hypertensi on PAF (paroxysmal atrial fibrillation) Hyperlipidemia History of aortic valve replacement with bioprosthetic valve Chief Complaint 4 M FU Other specified hypothyroidism Reason for Visit Essential hypertensi on PAF (paroxysmal atrial fibrillation) Hyperlipidemia History of aortic valve replacement with bioprosthetic valve Chief Complaint Admit Date BACK PAIN/STABILITY. RX HERE June 082024 10:00am Chief Complaint Admit Date BACK PAIN/STABILITY. RX HERE June 082024 10:00am 9 M FU July 20, 2024 11:1 8am VALVE REPLACEMENT EVAL July 22, 2024 9:44am Amb Documentation July 23, 2024 8:3 1am Reason for Visit Admit Date Essential hypertension July 20, 2024 1 1:18am PAF (paroxysmal atrial fibrillation) Apr 2024 11:18am Hyperlipidemia July 20, 2024 11:1 8am History of aortic valve replacement with bioprosthetic valve July 20, 2024 11:18am Chief Complaint Admit Date BACK PAIN/STABILITY. RX HERE June 082024 10:00am 9 M FU July 20, 2024 11:1 8am VALVE REPLACEMENT EVAL July 22, 2024 9:44am Amb Documentation July 23, 2024 8:3 1am Posterior tibial tendinitis, right leg J une 2024 1:02pm Chief Complaint Admit Date Posterior tibial tendinitis, right leg J une 2024 1:02pm PTNS December 07, 2024 2: 44pm Reason for Visit Admit Date Nocturia December 07, 2024 2: 44pm Urge incontinence December 07, 2024 2: 44pm Chief Complaint Admit Date Posterior tibial tendinitis, right leg J une 2024 1:02pm PTNS December 07, 2024 2: 44pm ptns December 15, 2024 10:58am Reason for Visit Admit Date Nocturia December 07, 2024 2: 44pm Urge incontinence December 07, 2024 2: 44pm Nocturia December 15, 2024 10:58am Urge incontinence December 15, 2024 10:58am Chief Complaint Admit Date Posterior tibial tendinitis, right leg J une 2024 1:02pm PTNS December 07, 2024 2: 44pm ptns December 15, 2024 10:58am TIBIA RX HERE December 21, 2024 11:00am ptns December 22, 2024 10:50am Reason for Visit Admit Date Nocturia December 07, 2024 2: 44pm Urge incontinence December 07, 2024 2: 44pm Nocturia December 15, 2024 10:58am Urge incontinence December 15, 2024 10:58am Nocturia December 22, 2024 10:50am Urge incontinence December 22, 2024 10:50am Chief Complaint Admit Date Posterior tibial tendinitis, right leg J une 2024 1:02pm PTNS December 07, 2024 2: 44pm ptns December 15, 2024 10:58am ptns December 22, 2024 10:50am TIBIA RX HERE December 28, 2024 1:30pm ptns December 29, 2024 11:15am Reason for Visit Admit Date Nocturia December 07, 2024 2: 44pm Urge incontinence December 07, 2024 2: 44pm Nocturia December 15, 2024 10:58am Urge incontinence December 15, 2024 10:58am Nocturia December 22, 2024 10:50am Urge incontinence December 22, 2024 10:50am Nocturia December 29, 2024 11:15am Urge incontinence December 29, 2024 11:15am Chief Complaint Admit Date Posterior tibial tendinitis, right leg J une 2024 1:02pm PTNS December 07, 2024 2: 44pm ptns December 15, 2024 10:58am ptns December 22, 2024 10:50am ptns December 29, 2024 11:15am PTNS January 05, 2025 10:50am edema January 07, 2025 12:38pm TIBIA RX HERE January 11, 2025 11:00am Reason for Visit Admit Date Nocturia December 07, 2024 2: 44pm Urge incontinence December 07, 2024 2: 44pm Nocturia December 15, 2024 10:58am Urge incontinence December 15, 2024 10:58am Nocturia December 22, 2024 10:50am Urge incontinence December 22, 2024 10:50am Nocturia December 29, 2024 11:15am Urge incontinence December 29, 2024 11:15am Nocturia January 05, 2025 10:50am Urge incontinence January 05, 2025 10:50am Chief Complaint Admit Date Posterior tibial tendinitis, right leg J une 2024 1:02pm PTNS December 07, 2024 2: 44pm ptns December 15, 2024 10:58am ptns December 22, 2024 10:50am ptns December 29, 2024 11:15am PTNS January 05, 2025 10:50am edema January 07, 2025 12:38pm TIBIA RX HERE January 11, 2025 11:00am PTNS January 12, 2025 10 :50am Reason for Visit Admit Date Nocturia December 07, 2024 2: 44pm Urge incontinence December 07, 2024 2: 44pm Nocturia December 15, 2024 10:58am Urge incontinence December 15, 2024 10:58am Nocturia December 22, 2024 10:50am Urge incontinence December 22, 2024 10:50am Nocturia December 29, 2024 11:15am Urge incontinence December 29, 2024 11:15am Nocturia January 05, 2025 10:50am Urge incontinence January 05, 2025 10:50am Nocturia January 12, 2025 10 :50am Urge incontinence January 12, 2025 10 :50am Chief Complaint Admit Date Posterior tibial tendinitis, right leg J une 2024 1:02pm PTNS December 07, 2024 2: 44pm ptns December 15, 2024 10:58am ptns December 22, 2024 10:50am ptns December 29, 2024 11:15am PTNS January 05, 2025 10:50am edema January 07, 2025 12:38pm PTNS January 12, 2025 10 :50am TIBIA RX HERE January 13, 2025 11 :00am Chief Complaint Admit Date PTNS December 07, 2024 2: 44pm ptns December 15, 2024 10:58am ptns December 22, 2024 10:50am ptns December 29, 2024 11:15am PTNS January 05, 2025 10:50am edema January 07, 2025 12:38pm PTNS January 12, 2025 10 :50am TIBIA RX HERE January 13, 2025 11 :00am urine drop January 14, 2025 4: 16pm Chief Complaint Admit Date PTNS December 07, 2024 2: 44pm ptns December 15, 2024 10:58am ptns December 22, 2024 10:50am ptns December 29, 2024 11:15am PTNS January 05, 2025 10:50am edema January 07, 2025 12:38pm PTNS January 12, 2025 10 :50am TIBIA RX HERE January 13, 2025 11 :00am urine drop January 14, 2025 4: 16pm PTNS January 19, 2025 10 :51am Chief Complaint Admit Date PTNS December 07, 2024 2: 44pm ptns December 15, 2024 10:58am ptns December 22, 2024 10:50am ptns December 29, 2024 11:15am PTNS January 05, 2025 10:50am edema January 07, 2025 12:38pm PTNS January 12, 2025 10 :50am urine drop January 14, 2025 4: 16pm PTNS January 19, 2025 10 :51am TIBIA RX HERE January 19, 2025 4: 00pm 6 M FU January 20, 2025 10 :56am Reason for Visit Admit Date Nocturia December 07, 2024 2: 44pm Urge incontinence December 07, 2024 2: 44pm Nocturia December 15, 2024 10:58am Urge incontinence December 15, 2024 10:58am Nocturia December 22, 2024 10:50am Urge incontinence December 22, 2024 10:50am Nocturia December 29, 2024 11:15am Urge incontinence December 29, 2024 11:15am Nocturia January 05, 2025 10:50am Urge incontinence January 05, 2025 10:50am Nocturia January 12, 2025 10 :50am Urge incontinence January 12, 2025 10 :50am Nocturia January 19, 2025 10 :51am Urge incontinence January 19, 2025 10 :51am Adequate anticoagulation on anticoagulan t therapy January 20, 2025 10:56am Essential hypertension January 20, 2025 10:56am PAF (paroxysmal atrial fibrillation) Oct brandon 2024 10:56am Hyperlipidemia January 20, 2025 10 :56am History of aortic valve repl acement with bioprosthetic valve January 20, 2025 10:56am Chief Complaint Admit Date PTNS December 07, 2024 2: 44pm ptns December 15, 2024 10:58am ptns December 22, 2024 10:50am ptns December 29, 2024 11:15am PTNS January 05, 2025 10:50am edema January 07, 2025 12:38pm PTNS January 12, 2025 10 :50am urine drop January 14, 2025 4: 16pm PTNS January 19, 2025 10 :51am TIBIA RX HERE January 19, 2025 4: 00pm 6 M FU January 20, 2025 10 :56am PTNS January 26, 2025 1 0:49am PTNS February 02, 2025 1 0:49am Reason for Visit Admit Date Nocturia December 07, 2024 2: 44pm Urge incontinence December 07, 2024 2: 44pm Nocturia December 15, 2024 10:58am Urge incontinence December 15, 2024 10:58am Nocturia December 22, 2024 10:50am Urge incontinence December 22, 2024 10:50am Nocturia December 29, 2024 11:15am Urge incontinence December 29, 2024 11:15am Nocturia January 05, 2025 10:50am Urge incontinence January 05, 2025 10:50am Nocturia January 12, 2025 10 :50am Urge incontinence January 12, 2025 10 :50am Nocturia January 19, 2025 10 :51am Urge incontinence January 19, 2025 10 :51am Adequate anticoagulation on anticoagulan t therapy January 20, 2025 10:56am Essential hypertension January 20, 2025 10:56am PAF (paroxysmal atrial fibrillation) Oct brandon 2024 10:56am Hyperlipidemia January 20, 2025 10 :56am History of aortic valve repl acement with bioprosthetic valve January 20, 2025 10:56am Nocturia January 26, 2025 1 0:49am Urge incontinence January 26, 2025 1 0:49am Nocturia February 02, 2025 1 0:49am Urge incontinence February 02, 2025 1 0:49am UTI (urinary tract infection) February 022024 10:49am Family History No Family History Records Found Relationship Condition Age at Onset Recorded Date/T rajni father Malignant neoplasm of lung Unknown mother Malignant neoplasm Unknown Cardiac disease Unknown Medications Administered Section Inactive Administered Medications - up to 3 most recent administrations Medication Order MAR Action Action Date Dose Rate Site cephALEXin 500 mg cap(s) (KEFLEX) 500 mg, ORAL, ONCE (UP TO 30 DAYS AMB), 1 dose, On [place] 09/20/21 at 1500, Please document the antimicrobial indication: Prophylaxis Given 09/26/2021 10:00 AM EDT 500 mg Oral lidocaine urojet 2 % 6 mL topical gel (XYLOCAINE, GLYDO) 6 mL, URETHRAL, ONCE (UP TO 30 DAYS AMB), 1 dose, On [place] 09/20/21 at 1500, Prior to UDS Procedure Given 09/26/2021 10:00 AM EDT 6 mL Other Summary Purpose Advance Directives No Advanced Directives Records Found Advance Directive Response Recorded Date/ Time Advance Directives on File No November 01, 2022 10:33am Name of Medical Power of Drug Enforcement Agent carly escobar November 01, 2022 10:33am Advance Directives Yes November 01 10:33am Living Will Yes November 01, 2022 10:33am Power of Drug Enforcement Agent Yes November 01 10:33am Advance Directive Response Recorded Date/ Time Advance Directives on File No November 01, 2022 10:33am Name of Medical Power of Drug Enforcement Agent carly escobar November 01, 2022 10:33am Advance Directives on File Yes [facility] 2022 11:13am Name of Medical Power of Drug Enforcement Agent Jennifer Gonzalez December 24, 2022 11:13am Advance Directives Yes December 11:13am Living Will Yes December 24, 2022 11:13am Power of Drug Enforcement Agent Yes December 11:13am Advance Directive Response Recorded Date/ Time Advance Directives on File Yes [facility] 2022 10:13am Name of Medical Power of Drug Enforcement Agent Jennifer Loaizaer December 24, 2022 10:13am Advance Directives Yes December 10:13am Living Will Yes December 24, 2022 10:13am Power of Drug Enforcement Agent Yes December 10:13am Advance Directive Response Recorded Date/ Time Advance Directives Yes December 11:13am Living Will Yes December 24, 2022 11:13am Power of Drug Enforcement Agent Yes December 11:13am Advance Directive Response Recorded Date/ Time Advance Directives Yes December 11:13am Advance Directive Response Recorded Date/ Time Living Will Yes December 24, 2022 11:13am Do you have a Healthcare Power of Drug Enforcement Agent? Yes December 24, 2022 11:13am Advance Directives Yes December 11:13am Additional Source Comments Source Comments (unrecognize d section and content) In the event this informatio n is protected by the Federal Confidentiality of Alcohol and Drug Abuse Patient Records regulations: The Federal rules restrict any use of the information to criminally investigate or prosecute any alcohol or drug abuse patient.[facility] the event this information is protected by the Federal Confidentiality of Alcohol and Drug Abuse Patient Records regulations: The Federal rules restrict any use of the information to criminally investigate or prosecute any alcohol or drug abuse patient.[facility] the event this information is protected by the Federal Confidentiality of Alcohol and Drug Abuse Patient Records regulations: The Federal rules restrict any use of the information to criminally investigate or prosecute any alcohol or drug abuse patient.[facility] the event this information is protected by the Federal Confidentiality of Alcohol and Drug Abuse Patient Records regulations: The Federal rules restrict any use of the information to criminally investigate or prosecute any alcohol or drug abuse patient.[facility] the event this information is protected by the Federal Confidentiality of Alcohol and Drug Abuse Patient Records regulations: The Federal rules restrict any use of the information to criminally investigate or prosecute any alcohol or drug abuse patient.[facility] the event this information is protected by the Federal Confidentiality of Alcohol and Drug Abuse Patient Records regulations: The Federal rules restrict any use of the information to criminally investigate or prosecute any alcohol or drug abuse patient.[facility] the event this information is protected by the Federal Confidentiality of Alcohol and Drug Abuse Patient Records regulations: The Federal rules restrict any use of the information to criminally investigate or prosecute any alcohol or drug abuse patient.[facility] the event this information is protected by the Federal Confidentiality of Alcohol and Drug Abuse Patient Records regulations: The Federal rules restrict any use of the information to criminally investigate or prosecute any alcohol or drug abuse patient.[facility] the event this information is protected by the Federal Confidentiality of Alcohol and Drug Abuse Patient Records regulations: The Federal rules restrict any use of the information to criminally investigate or prosecute any alcohol or drug abuse patient.[facility] the event this information is protected by the Federal Confidentiality of Alcohol and Drug Abuse Patient Records regulations: The Federal rules restrict any use of the information to criminally investigate or prosecute any alcohol or drug abuse patient.[facility] the event this information is protected by the Federal Confidentiality of Alcohol and Drug Abuse Patient Records regulations: The Federal rules restrict any use of the information to criminally investigate or prosecute any alcohol or drug abuse patient.[facility] the event this information is protected by the Federal Confidentiality of Alcohol and Drug Abuse Patient Records regulations: The Federal rules restrict any use of the information to criminally investigate or prosecute any alcohol or drug abuse patient.[facility] the event this information is protected by the Federal Confidentiality of Alcohol and Drug Abuse Patient Records regulations: The Federal rules restrict any use of the information to criminally investigate or prosecute any alcohol or drug abuse patient.[facility] CenterIn the event this information is protected by the Federal Confidentiality of Alcohol and Drug Abuse Patient Records regulations: The Federal rules restrict any use of the information to criminally investigate or prosecute any alcohol or drug abuse patient.[facility] CenterIn the event this information is protected by the Federal Confidentiality of Alcohol and Drug Abuse Patient Records regulations: The Federal rules restrict any use of the information to criminally investigate or prosecute any alcohol or drug abuse patient.[facility] CenterIn the event this information is protected by the Federal Confidentiality of Alcohol and Drug Abuse Patient Records regulations: The Federal rules restrict any use of the information to criminally investigate or prosecute any alcohol or drug abuse patient.[facility] CenterIn the event this information is protected by the Federal Confidentiality of Alcohol and Drug Abuse Patient Records regulations: The Federal rules restrict any use of the information to criminally investigate or prosecute any alcohol or drug abuse patient.[facility] CenterIn the event this information is protected by the Federal Confidentiality of Alcohol and Drug Abuse Patient Records regulations: The Federal rules restrict any use of the information to criminally investigate or prosecute any alcohol or drug abuse patient.[facility] CenterIn the event this information is protected by the Federal Confidentiality of Alcohol and Drug Abuse Patient Records regulations: The Federal rules restrict any use of the information to criminally investigate or prosecute any alcohol or drug abuse patient.[facility] CenterIn the event this information is protected by the Federal Confidentiality of Alcohol and Drug Abuse Patient Records regulations: The Federal rules restrict any use of the information to criminally investigate or prosecute any alcohol or drug abuse patient.[facility] Reason for Visit (unrecogniz ed section and content) Reason Comments New Patient Reason Comments Urge Urinary Incontinence UDS Reason Comments uds follow up Reason Comments FYI-No Action Needed Medication Problem Reason Comments Surgery Question Reason Comments Medication Problem Reason Comments Patient Question Reason Comments Orders Reason Comments Patient Question Reason Comments Yearly Exam Care Teams (unrecognized sec tion and content) Tariff Supervisor Relationship Specialty Start Date End Date BreMicah FarzanehDO [address] [place] [address] PCP - General Family Practice 12/29/20 Lynn Christensen [address] [facility] [address] [address] [place] [address] Physician Urology 07/24/21 Tariff Supervisor Relationship Specialty Start Date End Date Bre Micah MoyDO [address] [place] [address] PCP - General Family Practice 12/29/20 Lynn Christensen [address] [facility] [address] [place] [address] Physician Urology 07/24/21 Tariff Supervisor Relationship Specialty Start Date End Date Micah Díaz DO [address] [place] [address] PCP - General Family Practice 12/29/20 Lynn Christensen [address] [facility] [address] [place] [address] Physician Urology 07/24/21 Tariff Supervisor Relationship Specialty Start Date End Date Micah Díaz, DO [address] [place] [address] PCP - General Family Practice 12/29/20 Lynn Christensen [address] [place] [address] [place] [address] Physician Urology 07/24/21 Tariff Supervisor Relationship Specialty Start Date End Date Micah Díaz [address] [place] [address] PCP - General Family Practice 12/29/20 Lynn Christensen [address] [place] [address] Physician Urology 07/24/21 Tariff Supervisor Relationship Specialty Start Date End Date Micah DíazDO [address] [place] [address] PCP - General Family Practice 12/29/20 Lynn Christensen [address] [place] [address] Physician Urology 07/24/21 Tariff Supervisor Relationship Specialty Start Date End Date Micah DíazDO [address] [place] [address] PCP - General Family Medicine 12/29/20 Lynn Christensen [address] [place] [address] Physician Urology 07/24/21 Tariff Supervisor Relationship Specialty Start Date End Date Micah DíazDO [address] [place] [address] PCP - General Family Medicine 12/29/20 Lynn Christensen [address] [facility] [address] [place] [address] Physician Urology 07/24/21 Tariff Supervisor Relationship Specialty Start Date End Date Micah Díaz DO [address] [place] [address] PCP - General Family Medicine 12/29/20 Lynn Christensen [address] [place] [address] Physician Urology 07/24/21 Tariff Supervisor Relationship Specialty Start Date End Date Micah Díaz DO [address] [place] [address] PCP - General Family Medicine 12/29/20 Lynn Christensen [address] [facility] [address] [place] [address] Physician Urology 07/24/21 Team Status: Active Member Role Status Dates Dr. Micah Díaz DO Family Provider Active Dr. Micah Díaz DO Primary Care Provider Active Team Status: Inactive Member Role Status Dates Dr. Micah Díaz DO Primary Care Provider, Attendin g Provider Active Team Status: Inactive Member Role Status Dates Dr. Micah Díaz DO Primary Care Prov ider, Attending Provider, Referring Provider Active Team Status: Active Member Role Status Dates Dr. Micah Díaz DO Primary Care Provider Active ELZBIETA KNOX NP-C Attending Provider, Referring Pr ovider Active Team Status: Inactive Member Role Status Dates Dr. Micah Díaz DO Primary Care Provider Active ZAYDA CARNES Attending Provider, Referring Pr ovider Active Team Status: Inactive Member Role Status Dates Dr. Micah Díaz DO Primary Care Provider, Referrin g Provider Active Dr. Angel Fairchild MD Active Ileana Beltrán PA, PA Attending Provider Active Team Status: Active Member Role Status Dates Dr. Micah Díaz , DO Primary Care Provider Active Dr. Angel Fairchild MD Attending Provider Active Team Status: Active Member Role Status Dates Dr. Micah Díaz , DO Primary Care Provider Active Ileana Beltrán PA, PA Referring Provider, Other Provider Active Dr. Angel Fairchild MD Attending Provider Active Team Status: Active Member Role Status Dates Dr. Micah Díaz , DO Primary Care Provider Active Dr. Lynn Christensen MD Attending Provider, Referring P rovider Active Team Status: Active Member Role Status Dates Dr. Micah Díaz , DO Primary Care Provider Active Ileana Beltrán PA, PA Attending Provider, Referr ing Provider Active Team Status: Inactive Member Role Status Dates Dr. Micah Díaz , DO Primary Care Provider Active Dr. Rene Lomax MD Attending Provider, Referring Pr ovider Active Team Status: Inactive Member Role Status Dates Dr. Micah Díaz , DO Primary Care Provider, Referrin g Provider Active Ileana Beltrán PA, PA Attending Provider Active Team Status: Active Member Role Status Dates Dr. Micah Díaz , DO Primary Care Provider Active Dr. Angel Fairchild MD Attending Provider, Referring Provider, Other Provider Active Dr. Matti Camarillo , DO Other Provider Active Ileana Beltrán PA, PA Other Provider Active Team Status: Active Member Role Status Dates Dr. Micah Díaz , DO Primary Care Provider Active Dr. Angel Fairchild MD Referring Provider, Other Provide r Active Dr. Matti Camarillo , DO Other Provider Active Ileana Beltrán PA, PA Other Provider Active Dr. Stepan Horner MD Attending Provider Active Team Status: Inactive Member Role Status Dates Dr. Micah Díaz , DO Primary Care Provider Active Dr. Lynn Christensen MD Attending Provider, Referring P rovider Active Team Status: Inactive Member Role Status Dates Dr. Micah Díaz , DO Primary Care Provider Active Dr. Angel Fairchild MD Attending Provider, Referring Pro vider Active Dr. Matti Camarillo , DO Other Provider Active Ileana Beltrán PA, PA Other Provider Active Team Status: Active Member Role Status Dates Dr. Micah Díaz , DO Primary Care Provider Active Dr. Angel Fairchild MD Attending Provider, Other Provide r Active Team Status: Active Member Role Status Dates Dr. Micah Díaz DO Primary Care Provider Active Dr. Angel Fairchild MD Attending Provider, Referring Provider, Other Provider Active Ileana Beltrán PA, PA Other Provider Active Team Status: Active Member Role Status Dates Dr. Micah Díaz DO Primary Care Provider Active Dr. Angel Fairchild MD Referring Provider, Other Provide r Active Ileana Beltrán PA, PA Other Provider Active Dr. Michell Dorsey MD Attending Provider Active Team Status: Inactive Member Role Status Dates Dr. Micah Díaz DO Primary Care Provider Active Dr. Angel Fairchild MD Attending Provider, Referring Pro vider Active Ileana Beltrán PA, PA Other Provider Active Team Status: Inactive Member Role Status Dates Dr. Micah Díaz DO Primary Care Provider, Referrin g Provider Active Dr. Angel Fairchild MD Attending Provider Active Team Status: Active Member Role Status Dates Dr. Micah Díaz DO Primary Care Provider Active Dr. Angel Fairchild MD Referring Provider, Other Provide r Active Ileana Beltrán PA, PA Other Provider Active Dr. Michell Dorsey MD Active Dr. Stepan Horner MD Attending Provider Active Team Status: Active Member Role Status Dates Dr. Micah Díaz DO Primary Care Provider Active Dr. Reginald Carey MD Attending Provider Active Tariff Supervisor Relationship Specialty Start Date End Date Micah Díaz DO [address] [place] [address] PCP - General Family Medicine 12/29/20 Lynn Christensen [address] [place], [place] [address] Physician Urology 07/24/21 Team Status: Active Member Role Status Dates Dr. Micah Díaz DO Primary Care Provider, Referrin g Provider Active Dr. Reginald Carey MD Attending Provider Active Team Status: Inactive Member Role Status Dates Dr. Micah Díaz DO Primary Care Provider Active Dr. Matti Wietecha , DO Attending Provider, Referring Provider Active Tariff Supervisor Relationship Specialty Start Date End Date Micah Díaz DO [address] [place], [place] [address] PCP - General Family Medicine 12/29/20 Lynn Christensen [address] [place], [place] [address] Physician Urology 07/24/21 Team Status: Inactive Member Role Status Dates Dr. Micah Díaz , DO Primary Care Provider Active ELZBIETA KNOX , CROP SPECIALIST-C Attending Provider, Referring Pr lauraer Active Dr. Matti Camarillo , DO Other Provider Active Tariff Supervisor Relationship Specialty Start Date End Date Micah Díaz DO [address] [place] [address] PCP - General Family Medicine 12/29/20 Lynn Christensen [address] [place], [place] [address] Physician Urology 07/24/21 Tariff Supervisor Relationship Specialty Start Date End Date Micah Díaz DO [address] [place] [address] PCP - General Family Medicine 12/29/20 Lynn Christensen MD [address] [place], [place] [address] Physician Urology 07/24/21 Tariff Supervisor Relationship Specialty Start Date End Date Micah Díaz DO [address] [place], [place] [id number] PCP - General Family Medicine 12/29/20 Lynn Christensen MD [address] [place] [address] Physician Urology 07/24/21 Tariff Supervisor Relationship Specialty Start Date End Date Micah Díaz DO [address] [place] [address] PCP - General Family Medicine 12/29/20 Lynn Christensen MD [address] [place] [address] Physician Urology 07/24/21 Tariff Supervisor Relationship Specialty Start Date End Date Micah Díaz DO [address] [place] [address] PCP - General Family Medicine 12/29/20 Lynn Christensen MD [address] [place] [address] Physician Urology 07/24/21 Team Status: Inactive Member Role Status Dates Dr. Micah Díaz DO Primary Care Provider Active Start: April 27, 2024 End: April 27, 2024 Dr. Matti Camarillo DO Attending Provider Active Start: April 27, 2024 End: April 27, 2024 Dr. Matti Camarillo DO Referring Provider Active Start: April 27, 2024 End: April 27, 2024 Team Status: Active Member Role Status Dates Dr. Micah Díaz DO Primary Care Provider Active Start: June 08, 2024 Dr. eRne Lomax MD Attending Provider Active Start: June 08, 2024 Dr. Rene Lomax MD Referring Provider Active Start: June 08, 2024 Team Status: Inactive Member Role Status Dates Dr. Micah Díaz DO Primary Care Provider Active Start: June 17, 2024 End: June 17, 2024 Dr. Christiano Medeiros DPM Attending Provider Active Start: June 17, 2024 End: June 17, 2024 Dr. Christiano Medeiros DPM Referring Provider Active Start: June 17, 2024 End: June 17, 2024 Team Status: Active Member Role Status Dates Dr. Micah Díaz DO Primary Care Provider Active Start: June 28, 2024 Dr. Micah Díaz DO Attending Provider Active Start: June 28, 2024 Team Status: Inactive Member Role Status Dates Dr. Micah Díaz DO Primary Care Provider Active Start: June 28, 2024 End: June 28, 2024 Dr. Micah Díaz DO Attending Provider Active Start: June 28, 2024 End: June 28, 2024 Team Status: Active Member Role Status Dates Dr. Micah Díaz DO Primary Care Provider Active Team Status: Inactive Member Role Status Dates Dr. Micah Díaz DO Primary Care Provider Active Start: July 20, 2024 End: July 20, 2024 Dr. Micah Díaz DO Referring Provider Active Start: July 20, 2024 End: July 20, 2024 Milka Mckenna CROP SPECIALIST, CROP SPECIALIST-C Attending Provider Active Start: July 20, 2024 End: July 20, 2024 Team Status: Inactive Member Role Status Dates Dr. Micah Díaz DO Primary Care Provider Active Start: July 22, 2024 End: July 22, 2024 Milka Mckenna CROP SPECIALIST, CROP SPECIALIST-C Attending Provider Active Start: July 22, 2024 End: July 22, 2024 Milka Mckenna CROP SPECIALIST, CROP SPECIALIST-C Referring Provider Active Start: July 22, 2024 End: July 22, 2024 Team Status: Active Member Role Status Dates Dr. Micah Díaz DO Primary Care Provider Active Start: July 22, 2024 Dr. Angel Fairchild MD Attending Provider Active S tart: July 22, 2024 Team Status: Active Member Role Status Dates Dr. Micah Díaz DO Primary Care Provider Active Start: July 23, 2024 Milka Mckenna CROP SPECIALIST, CROP SPECIALIST-C Attending Provider Active Start: July 23, 2024 Team Status: Inactive Member Role Status Dates Dr. Micah Díaz DO Primary Care Provider Active Start: June 08, 2024 End: June 08, 2024 Dr. Rene Lomax MD Attending Provider Active Start: June 08, 2024 End: June 08, 2024 Dr. Rene Lomax MD Referring Provider Active Start: June 08, 2024 End: June 08, 2024 Team Status: Inactive Member Role Status Dates Dr. Micah Díaz DO Primary Care Provider Active Start: August 31, 2024 End: August 31, 2024 Dr. Matti Camarillo DO Attending Provider Active Start: August 31, 2024 End: August 31, 2024 Dr. Matti Camarillo DO Referring Provider Active Start: August 31, 2024 End: August 31, 2024 Team Status: Inactive Member Role Status Dates Dr. Micah Díaz DO Primary Care Provider Active Start: September 15, 2024 End: September 15, 2024 Dr. Christiano Medeiros DPM Attending Provider Active Start: September 15, 2024 End: September 15, 2024 Dr. Christiano Medeiros DPM Referring Provider Active Start: September 15, 2024 End: September 15, 2024 Team Status: Active Member Role/Relationship Status Dates Dr. Micah Díaz DO Primary Care Provider Active Team Status: Inactive Member Role/Relationship Status Dates Dr. Micah Díaz DO Primary Care Provider Active Start: August 31, 2024 End: August 31, 2024 Dr. Matti Camarillo DO Attending Provider Active Start: August 31, 2024 End: August 31, 2024 Dr. Matti Camarillo DO Referring Provider Active Start: August 31, 2024 End: August 31, 2024 Team Status: Inactive Member Role/Relationship Status Dates Dr. Micah Díaz DO Primary Care Provider Active Start: September 15, 2024 End: September 15, 2024 Dr. Christiano Medeiros DPM Attending Provider Active Start: September 15, 2024 End: September 15, 2024 Dr. Christiano Medeiros DPM Referring Provider Active Start: September 15, 2024 End: September 15, 2024 Team Status: Inactive Member Role/Relationship Status Dates Dr. Micah Díaz DO Primary Care Provider Active Start: October 12, 2024 Dr. Lynn Christensen MD Attending Provider Active Start: October 12, 2024 Team Status: Active Member Role/Relationship Status Dates Dr. Micah Díaz DO Primary Care Provider Active Start: November 17, 2024 Dr. Lynn Christensen MD Attending Provider Active Start: November 17, 2024 Team Status: Inactive Member Role/Relationship Status Dates Dr. Micah Díaz DO Primary Care Provider Active Start: December 07, 2024 End: December 07, 2024 Dr. Micah Díaz DO Referring Provider Active Start: December 07, 2024 End: December 07, 2024 Dr. Lynn Christensen MD Attending Provider Active Start: December 07, 2024 End: December 07, 2024 Team Status: Inactive Member Role/Relationship Status Dates Dr. Micah Díaz DO Primary Care Provider Active Start: December 15, 2024 End: December 15, 2024 Dr. Micah Díaz DO Referring Provider Active Start: December 15, 2024 End: December 15, 2024 Dr. Lynn Christenesn MD Attending Provider Active Start: December 15, 2024 End: December 15, 2024 Team Status: Active Member Role/Relationship Status Dates Dr. Micah Díaz DO Primary Care Provider Active Start: December 21, 2024 Dr. Christiano Medeiros DPM Attending Provider Active Start: December 21, 2024 Dr. Christiano Medeiros DPM Referring Provider Active Start: December 21, 2024 Team Status: Inactive Member Role/Relationship Status Dates Dr. Micah Díaz DO Primary Care Provider Active Start: December 22, 2024 End: December 22, 2024 Dr. Micah Díaz DO Referring Provider Active Start: December 22, 2024 End: December 22, 2024 Dr. Lynn Christensen MD Attending Provider Active Start: December 22, 2024 End: December 22, 2024 Team Status: Active Member Role/Relationship Status Dates Dr. Micah Díaz DO Primary care physician Active Team Status: Inactive Member Role/Relationship Status Dates Dr. Micah Díaz DO Primary care physician Active Start: August 31, 2024 End: August 31, 2024 Dr. Matti Camarillo DO Attending physician Active Start: August 31, 2024 End: August 31, 2024 Dr. Matti Camarillo DO Referring Provider Active Start: August 31, 2024 End: August 31, 2024 Team Status: Inactive Member Role/Relationship Status Dates Dr. Micah Díaz DO Primary care physician Active Start: September 15, 2024 End: September 15, 2024 Dr. Christiano Medeiros DPM Attending physician Active Start: September 15, 2024 End: September 15, 2024 Dr. Christiano Medeiros DPM Referring Provider Active Start: September 15, 2024 End: September 15, 2024 Team Status: Inactive Member Role/Relationship Status Dates Dr. Micah Díaz DO Primary care physician Active Start: October 12, 2024 Dr. Lynn Christensen MD Attending physician Active Start: October 12, 2024 Team Status: Active Member Role/Relationship Status Dates Dr. Micah Díaz DO Primary care physician Active Start: November 17, 2024 Dr. Lynn Christensen MD Attending physician Active Start: November 17, 2024 Team Status: Inactive Member Role/Relationship Status Dates Dr. Micah Díaz DO Primary care physician Active Start: December 07, 2024 End: December 07, 2024 Dr. Micah Díaz DO Referring Provider Active Start: December 07, 2024 End: December 07, 2024 Dr. Lynn Christensen MD Attending physician Active Start: December 07, 2024 End: December 07, 2024 Team Status: Inactive Member Role/Relationship Status Dates Dr. Micah Díaz DO Primary care physician Active Start: December 15, 2024 End: December 15, 2024 Dr. Micah Díaz DO Referring Provider Active Start: December 15, 2024 End: December 15, 2024 Dr. Lynn Christensen MD Attending physician Active Start: December 15, 2024 End: December 15, 2024 Team Status: Inactive Member Role/Relationship Status Dates Dr. Micah Díaz DO Primary care physician Active Start: December 22, 2024 End: December 22, 2024 Dr. Micah Díaz DO Referring Provider Active Start: December 22, 2024 End: December 22, 2024 Dr. Lynn Christensen MD Attending physician Active Start: December 22, 2024 End: December 22, 2024 Team Status: Active Member Role/Relationship Status Dates Dr. Micah Díaz DO Primary care physician Active Start: December 28, 2024 Dr. Christiano Medeiros DPM Attending physician Active Start: December 28, 2024 Dr. Christiano Medeiros DPM Referring Provider Active Start: December 28, 2024 Team Status: Inactive Member Role/Relationship Status Dates Dr. Micah Díaz DO Primary care physician Active Start: December 29, 2024 End: December 29, 2024 Dr. Micah Díaz DO Referring Provider Active Start: December 29, 2024 End: December 29, 2024 Dr. Lynn Christensen MD Attending physician Active Start: December 29, 2024 End: December 29, 2024 Team Status: Inactive Member Role/Relationship Status Dates Dr. Micah Díaz DO Primary care physician Active Start: September 15, 2024 End: September 15, 2024 Dr. Christiano Medeiros DPM Attending physician Active Start: September 15, 2024 End: September 15, 2024 Dr. Christiano Medeiros DPM Referring Provider Active Start: September 15, 2024 End: September 15, 2024 Team Status: Inactive Member Role/Relationship Status Dates Dr. Micah Díaz DO Primary care physician Active Start: October 12, 2024 Dr. Lynn Christensen MD Attending physician Active Start: October 12, 2024 Team Status: Active Member Role/Relationship Status Dates Dr. Micah Díaz DO Primary care physician Active Start: November 17, 2024 Dr. Lynn Christensen MD Attending physician Active Start: November 17, 2024 Team Status: Inactive Member Role/Relationship Status Dates Dr. Micah Díaz DO Primary care physician Active Start: December 07, 2024 End: December 07, 2024 Dr. Micah Díaz DO Referring Provider Active Start: December 07, 2024 End: December 07, 2024 Dr. Lynn Christensen MD Attending physician Active Start: December 07, 2024 End: December 07, 2024 Team Status: Inactive Member Role/Relationship Status Dates Dr. Micah Díaz DO Primary care physician Active Start: December 15, 2024 End: December 15, 2024 Dr. Micah Díaz DO Referring Provider Active Start: December 15, 2024 End: December 15, 2024 Dr. Lynn Christensen MD Attending physician Active Start: December 15, 2024 End: December 15, 2024 Team Status: Inactive Member Role/Relationship Status Dates Dr. Micah Díaz DO Primary care physician Active Start: December 22, 2024 End: December 22, 2024 Dr. Micah Díaz DO Referring Provider Active Start: December 22, 2024 End: December 22, 2024 Dr. Lynn Christensen MD Attending physician Active Start: December 22, 2024 End: December 22, 2024 Team Status: Inactive Member Role/Relationship Status Dates Dr. Micah Díaz DO Primary care physician Active Start: December 29, 2024 End: December 29, 2024 Dr. Micah Díaz DO Referring Provider Active Start: December 29, 2024 End: December 29, 2024 Dr. Lynn Christensen MD Attending physician Active Start: December 29, 2024 End: December 29, 2024 Team Status: Inactive Member Role/Relationship Status Dates Dr. Micah Díaz DO Primary care physician Active Start: January 05, 2025 End: January 05, 2025 Dr. Micah Díaz DO Referring Provider Active Start: January 05, 2025 End: January 05, 2025 Dr. Lynn Christensen MD Attending physician Active Start: January 05, 2025 End: January 05, 2025 Team Status: Active Member Role/Relationship Status Dates Dr. Micah Díaz DO Primary care physician Active Start: January 07, 2025 Dr. Micah Díaz DO Attending physician Active Start: January 07, 2025 Dr. Micah Díaz DO Referring Provider Active Start: January 07, 2025 Team Status: Active Member Role/Relationship Status Dates Dr. Micah Díaz DO Primary care physician Active Start: January 07, 2025 Dr. Reginald Carey MD Attending physician Active Start: January 07, 2025 Team Status: Active Member Role/Relationship Status Dates Dr. Micah Díaz DO Primary care physician Active Start: January 11, 2025 Dr. Christiano Medeiros DPM Attending physician Active Start: January 11, 2025 Dr. Christiano Medeiros DPM Referring Provider Active Start: January 11, 2025 Team Status: Inactive Member Role/Relationship Status Dates Dr. Micah Díaz DO Primary care physician Active Start: January 12, 2025 End: January 12, 2025 Dr. Micah Díaz DO Referring Provider Active Start: January 12, 2025 End: January 12, 2025 Dr. Lynn Christensen MD Attending physician Active Start: January 12, 2025 End: January 12, 2025 Team Status: Inactive Member Role/Relationship Status Dates Dr. Micah Díaz DO Primary care physician Active Start: January 07, 2025 End: January 07, 2025 Dr. Micah Díaz DO Attending physician Active Start: January 07, 2025 End: January 07, 2025 Dr. Micah Díaz DO Referring Provider Active Start: January 07, 2025 End: January 07, 2025 Team Status: Inactive Member Role/Relationship Status Dates Dr. Micah Díaz DO Primary care physician Active Start: January 12, 2025 End: January 12, 2025 Dr. Micah Díaz DO Referring Provider Active Start: January 12, 2025 End: January 12, 2025 Dr. Lynn Christensen MD Attending physician Active Start: January 12, 2025 End: January 12, 2025 Team Status: Active Member Role/Relationship Status Dates Dr. Micah Díaz DO Primary care physician Active Start: January 13, 2025 Dr. Christiano Medeiros DPM Attending physician Active Start: January 13, 2025 Dr. Christiano Medeiros DPM Referring Provider Active Start: January 13, 2025 Team Status: Inactive Member Role/Relationship Status Dates Dr. Micah Díaz DO Primary care physician Active Start: October 12, 2024 Dr. Lynn Christensen MD Attending physician Active Start: October 12, 2024 Team Status: Active Member Role/Relationship Status Dates Dr. Micah Díaz DO Primary care physician Active Start: November 17, 2024 Dr. Lynn Christensen MD Attending physician Active Start: November 17, 2024 Team Status: Inactive Member Role/Relationship Status Dates Dr. Micah Díaz DO Primary care physician Active Start: December 07, 2024 End: December 07, 2024 Dr. Micah Díaz DO Referring Provider Active Start: December 07, 2024 End: December 07, 2024 Dr. Lynn Christensen MD Attending physician Active Start: December 07, 2024 End: December 07, 2024 Team Status: Inactive Member Role/Relationship Status Dates Dr. Micah Díaz DO Primary care physician Active Start: December 15, 2024 End: December 15, 2024 Dr. Micah Díaz DO Referring Provider Active Start: December 15, 2024 End: December 15, 2024 Dr. Lynn Christensen MD Attending physician Active Start: December 15, 2024 End: December 15, 2024 Team Status: Inactive Member Role/Relationship Status Dates Dr. Micah Díaz DO Primary care physician Active Start: December 22, 2024 End: December 22, 2024 Dr. Micah Díaz DO Referring Provider Active Start: December 22, 2024 End: December 22, 2024 Dr. Lynn Christensen MD Attending physician Active Start: December 22, 2024 End: December 22, 2024 Team Status: Inactive Member Role/Relationship Status Dates Dr. Micah Díaz DO Primary care physician Active Start: December 29, 2024 End: December 29, 2024 Dr. Micah Díaz DO Referring Provider Active Start: December 29, 2024 End: December 29, 2024 Dr. Lynn Christensen MD Attending physician Active Start: December 29, 2024 End: December 29, 2024 Team Status: Inactive Member Role/Relationship Status Dates Dr. Micah Díaz DO Primary care physician Active Start: January 05, 2025 End: January 05, 2025 Dr. Micah Díaz DO Referring Provider Active Start: January 05, 2025 End: January 05, 2025 Dr. Lynn Christensen MD Attending physician Active Start: January 05, 2025 End: January 05, 2025 Team Status: Inactive Member Role/Relationship Status Dates Dr. Micah Díaz DO Primary care physician Active Start: January 07, 2025 End: January 07, 2025 Dr. Micah Díaz DO Attending physician Active Start: January 07, 2025 End: January 07, 2025 Dr. Micah Díaz DO Referring Provider Active Start: January 07, 2025 End: January 07, 2025 Team Status: Active Member Role/Relationship Status Dates Dr. Micah Díaz DO Primary care physician Active Start: January 07, 2025 Dr. Reginald Carey MD Attending physician Active Start: January 07, 2025 Team Status: Inactive Member Role/Relationship Status Dates Dr. Micah Díaz DO Primary care physician Active Start: January 12, 2025 End: January 12, 2025 Dr. Micah Díaz DO Referring Provider Active Start: January 12, 2025 End: January 12, 2025 Dr. Lynn Christensen MD Attending physician Active Start: January 12, 2025 End: January 12, 2025 Team Status: Active Member Role/Relationship Status Dates Dr. Micah Díaz DO Primary care physician Active Start: January 13, 2025 Dr. Christiano Medeiros DPM Attending physician Active Start: January 13, 2025 Dr. Christiano Medeiros DPM Referring Provider Active Start: January 13, 2025 Team Status: Active Member Role/Relationship Status Dates Dr. Micah Díaz DO Primary care physician Active Start: January 14, 2025 Dr. Lynn Christensen MD Attending physician Active Start: January 14, 2025 Team Status: Inactive Member Role/Relationship Status Dates Dr. Micah Díaz DO Primary care physician Active Start: January 14, 2025 End: January 14, 2025 Dr. Micah Díaz DO Referring Provider Active Start: January 14, 2025 End: January 14, 2025 Dr. Lynn Christensen MD Attending physician Active Start: January 14, 2025 End: January 14, 2025 Team Status: Inactive Member Role/Relationship Status Dates Dr. Micah Díaz DO Primary care physician Active Start: January 19, 2025 End: January 19, 2025 Dr. Micah Díaz DO Referring Provider Active Start: January 19, 2025 End: January 19, 2025 Dr. Lynn Christensen MD Attending physician Active Start: January 19, 2025 End: January 19, 2025 Team Status: Active Member Role/Relationship Status Dates Dr. Micah Díaz DO Primary care physician Active Start: January 07, 2025 Dr. Micah Díaz DO Referring Provider Active Start: January 07, 2025 Dr. Reginald Carey MD Attending physician Active Start: January 07, 2025 Team Status: Active Member Role/Relationship Status Dates Dr. Micah Díaz DO Primary care physician Active Start: January 14, 2025 Dr. Lynn Christensen MD Attending physician Active Start: January 14, 2025 Team Status: Inactive Member Role/Relationship Status Dates Dr. Micah Díaz DO Primary care physician Active Start: January 14, 2025 End: January 14, 2025 Dr. Micah Díaz DO Referring Provider Active Start: January 14, 2025 End: January 14, 2025 Dr. Lynn Christensen MD Attending physician Active Start: January 14, 2025 End: January 14, 2025 Team Status: Inactive Member Role/Relationship Status Dates Dr. Micah Díaz DO Primary care physician Active Start: January 19, 2025 End: January 19, 2025 Dr. Micah Díaz DO Referring Provider Active Start: January 19, 2025 End: January 19, 2025 Dr. Lynn Christensen MD Attending physician Active Start: January 19, 2025 End: January 19, 2025 Team Status: Inactive Member Role/Relationship Status Dates Dr. Micah Díaz DO Primary care physician Active Start: January 19, 2025 End: January 19, 2025 Dr. Christiano Medeiros DPM Attending physician Active Start: January 19, 2025 End: January 19, 2025 Dr. Christiano Medeiros DPM Referring Provider Active Start: January 19, 2025 End: January 19, 2025 Team Status: Inactive Member Role/Relationship Status Dates Dr. Micah Díaz DO Primary care physician Active Start: January 20, 2025 End: January 20, 2025 Dr. Micah Díaz DO Referring Provider Active Start: January 20, 2025 End: January 20, 2025 Ileana Beltrán PA, PA Attending physician Active Start: January 20, 2025 End: January 20, 2025 Team Status: Inactive Member Role/Relationship Status Dates Dr. Micah Díaz DO Primary care physician Active Start: January 26, 2025 End: January 26, 2025 Dr. Micah Díaz DO Referring Provider Active Start: January 26, 2025 End: January 26, 2025 Dr. Lynn Christensen MD Attending physician Active Start: January 26, 2025 End: January 26, 2025 Team Status: Inactive Member Role/Relationship Status Dates Dr. Micah Díaz DO Primary care physician Active Start: February 02, 2025 End: February 02, 2025 Dr. Micah Díaz DO Referring Provider Active Start: February 02, 2025 End: February 02, 2025 Dr. Lynn Christensen MD Attending physician Active Start: February 02, 2025 End: February 02, 2025 Goals (unrecognized section and content) Goals may be documented in a n alternate sectionGoals may be documented in an alternate sectionGoals may be documented in an alternate sectionGoals may be documented in an alternate sectionGoals may be documented in an alternate sectionGoals may be documented in an alternate sectionGoals may be documented in an alternate sectionGoals may be documented in an alternate sectionGoals may be documented in an alternate sectionGoals may be documented in an alternate sectionGoals may be documented in an alternate sectionGoals may be documented in an alternate sectionGoals may be documented in an alternate sectionGoals may be documented in an alternate sectionGoals may be documented in an alternate sectionGoals may be documented in an alternate sectionGoals may be documented in an alternate sectionGoals may be documented in an alternate sectionGoals may be documented in an alternate sectionGoals may be documented in an alternate sectionGoals may be documented in an alternate sectionGoals may be documented in an alternate sectionGoals may be documented in an alternate sectionGoals may be documented in an alternate sectionGoals may be documented in an alternate sectionGoals may be documented in an alternate sectionGoals may be documented in an alternate sectionGoals may be documented in an alternate sectionGoals may be documented in an alternate sectionGoals may be documented in an alternate section INFORMATION SOURCE (unrecogn ized section and content) DATE CREATED AUTHOR 04/04/2022 [facility] DATE CREATED AUTHOR AUTHOR'S ORGANIZ ATION 05/23/2024 [facility] DATE CREATED AUTHOR AUTHOR'S ORGANIZ ATION 02/12/2025 [facility] FOR RECORDS PERTAINING TO PATIENTS WHO ARE OR HAVE BEEN ENROLLED IN A CHEMICAL DEPENDENCY/SUBSTANCEABUSE PROGRAM, SOME INFORMATION MAY BE OMITTED. This clinical summary was aggregated from multiple sources. Caution should be exercised in using it in the provision of clinical care. This summary normalizes information from multiple sources, and as a consequence, information in this document may materially change the coding, format and clinical context of patient data. In addition, data may be omitted in some cases. CLINICAL DECISIONS SHOULD BE BASED ON THE PRIMARY CLINICAL RECORDS. [facility] [employer] [facility]. provides no warranty or guarantee of the accuracy or completeness of information in this document.
[2025-02-13 12:56] LABS: Hematocrit 40.4 % (37-47); Hemoglobin 13.6 g/dL (12.0-15.0); Immature Granulocytes Count 0.020 X10^3/uL (0.0-0.0); Mean Corp Hgb Conc 33.7 g/dL (32-36); Mean Corpuscular Volume 89.8 fL (81-99); Mean Platelet Vol. 10.9 fl (6.2-12.0); NRBC Flagged by Analyzer 0 % (0-5); Platelet Count 228 K/mm3 (150-450); RBC Distribution Width CV 12.7 % (11.6-14.6); RBC Distribution Width SD 41.4 fl (35.1-43.9); Red Blood Count 4.50 M/mm3 (4.2-5.4); White Blood Count 8.1 K/mm3 (4.4-11.0)
--- NOTE | 2025-02-13 13:10 | RAD_ITS ---
PROCEDURE: CHEST PA AND LATERAL 02/13/2025 REASON FOR EXAM: CHEST PAIN TECHNIQUE: Procedure Code: RADCXR Modality: DX Procedure: CHEST PA AND LATERAL COMPARISON: No comparisons are retrieved. FINDINGS: Hardware: Sternotomy wires. Prosthetic heart valve. Heart: Normal size Mediastinum: Normal contours Lungs: Clear and expanded Bones: No sclerotic or lytic bone process. RAD/Chest PA and Lateral IMPRESSION: Acute process appreciated. Reading Location: [facility]
[2025-02-13 13:31] LABS: Magnesium 1.8 mg/dL (1.5-2.2); Troponin T High Sensitivity 14 ng/L (<=14)
[2025-02-13 13:33] LABS: Anion Gap 13 (5-15); BUN 9 mg/dL (4-19); BUN/Creat Ratio 14.1 RATIO (10-20); Calcium,Total 9.1 mg/dL (7.6-11.0); Carbon Dioxide 23.7 mmol/L (21.0-32.0); Chloride 101 mmol/L (98-108); Estimated Creatinine Clearance 60.35 ml/min (50-250); Glucose 102 mg/dL (70-99); Potassium 4.0 mmol/L (3.3-5.1)
[2025-02-13 15:32] LABS: Troponin T High Sens 2 HR 20 ng/L (<=14)
[2025-02-13 17:34] LABS: Troponin T High Sens 4 HR 16 ng/L (<=14)
--- NOTE | 2025-02-13 17:51 | HP.PCM.HOS_ITS ---
HPI - General General Date of Admission: 02/13/25 Date of Service: 02/13/25 Chief Complaint: Shaky, weak, CP HPI Narrative FABRICE MOON, is a 79-year-old female with history of hypothyroidism, ILEANA, A- fib presented to [facility] ED 02/13/2025 feeling tired and shaky for the past couple of days and also noted some chest pressure and tightness over substernal area with no improving or exacerbating factors. In the ED patient afebrile, heart rate initially listed as 32 however repeat was 56 and remained in the 50s, respiratory rate 14 and blood pressure 134/62, patient 99% on room air. CBC within normal limits, TSH normal, initial troponin 14 with a repeat of 20, BMP only notable for a slightly elevated glucose of 102. Chest x- ray reported out as no acute process. Given troponin delta of 6 hospitalist contacted for admission for chest pain rule out. Patient evaluated bedside, reports earlier today she felt shaky and weak and had some tightness over her substernal area with no radiation, presently all of her symptoms are feeling better with no chest pain. Denies any shortness of breath, no swelling in lower extremities. Reports has been several years since any cardiac workup. [facility] Medical History PAF (paroxysmal atrial fibrillation) New onset atrial fibrillation Fibromyalgia Obesity Hypothyroidism Nonrheumatic aortic (valve) stenosis Bicuspid aortic valve Hyperlipidemia Obstructive sleep apnea Home Medications ?Medication ?Instructions ?Recorded ?Last Taken ?Type coenzyme Q10 100 mg tablet 100 mg PO QDAY #90 tabs 11/29 Unknown Rx levothyroxine 137 mcg tablet 112 mcg PO DAILY 01/07/23 Unknown History fesoterodine 4 mg tablet,extended 4 mg PO QDAY 4 Unknown History release 24 hr (Toviaz) cholecalciferol (vitamin D3) 50 4,000 unit PO QODAY Unknown History mcg (2,000 unit) tablet hydrocodone-acetaminophen 5-325mg 1 tab PO QHS PRN daily n 07/20/24 Unknown History 5mg-325mg spironolactone 25 mg tablet 25 mg PO DAILY #90 TABLETS 09/29/24 Unknown Rx metoprolol tartrate 25 mg tablet 12.5 mg (1/2 x 25 mg) PO BID dose 12/22/24 Unknown Rx has been decreased. #90 tabs vibegron 75 mg tablet (Gemtesa) 75 mg PO QDAY 12/29/24 Unknown History apixaban 5 mg tablet (Eliquis) 5 mg PO BID #180 tabs 1 Unknown Rx [id number] intramuscular 1 ea IM .month 5 Unknown History trazodone 100 mg tablet 100 mg PO QHS 01/20/25 Unkno wn History Allergy/AdvReac Type Severity Reaction Status Date / Time amitriptyline (From Elavil) AdvReac Severe Unknown Verified 01/20/25 11:17 tramadol AdvReac Severe Unknown Verified 01/20/25 11:17 valdecoxib (From Bextra) AdvReac Severe Unknown Verified 01/20/25 11:17 amlodipine AdvReac Intermediate Foot and Verified 01/20/25 11:17 ankle edema Family History Father Lung cancer Mother Cancer kidney cancer Heart disease PPM Surgical History History of ankle surgery Hx of shoulder surgery History of foot surgery History of lumbar surgery History of bladder suspension procedure History of hysterectomy History of left heart catheterization (09/06/10) History of aortic valve replacement with bioprosthetic valve (10/23/10) Social History Smoking Status: Never smoker ROS ROS Narrative General: Denies fever/chills HENT: Did have slight headache but better now, denies stuffy nose, denies sore throat EYES: Denies changes in vision Resp: Denies cough, denies shortness of breath Cardiac: No further episodes of chest pressure GI: Denies abdominal pain, denies changes in bowel, denies nausea/vomiting at this time : Has frequent urination which is not new Extremity: Denies swelling MSK: Had some generalized weakness earlier but this is resolved Neuro: Has some chronic problems with her right foot but no new acute complaints Heme: Denies any bleeding or bruising Skin: Denies rashes Psychiatric: No complaints voiced Vital Signs Vital Signs Vital Signs: 02/13/25 12:07 11/02/25 12:18 02/13/25 12:21 Temperature 97.3 F L Temperature Source Temporal Pulse Rate 32 L 56 L Respiratory Rate 14 17 Respiratory Effort Normal Non-Labored Blood Pressure 134/62 H 151/77 H Blood Pressure Mean 86 101 Pulse Ox 99 100 Oxygen Delivery Method Room Air Room Air 02/13/25 12:30 02/13/25 12:45 02/13/25 12:45 Temperature Temperature Source Pulse Rate 54 L 54 L 54 L Respiratory Rate 14 17 17 Respiratory Effort Blood Pressure 138/45 H 143/63 H Blood Pressure Mean 71 84 Pulse Ox 99 97 97 Oxygen Delivery Method 02/13/25 12:58 02/13/25 13:05 02/13/25 13:06 Temperature Temperature Source Pulse Rate 64 Respiratory Rate 14 Respiratory Effort Blood Pressure 126/57 H Blood Pressure Mean 71 Pulse Ox 97 Oxygen Delivery Method Room Air 02/13/25 13:15 02/13/25 13:30 02/13/25 13:45 Temperature Temperature Source Pulse Rate 59 L 55 L 53 L Respiratory Rate 20 H 12 10 L Respiratory Effort Blood Pressure 118/82 H 125/40 H 112/56 L Blood Pressure Mean 93 65 74 Pulse Ox Oxygen Delivery Method 02/13/25 14:00 02/13/25 14:15 02/13/25 14:30 Temperature Temperature Source Pulse Rate 58 L 58 L 52 L Respiratory Rate 11 L 18 17 Respiratory Effort Blood Pressure 130/52 H 126/60 H 126/45 H Blood Pressure Mean 74 80 68 Pulse Ox 96 Oxygen Delivery Method 02/13/25 15:17 02/13/25 15:30 02/13/25 15:30 Temperature Temperature Source Pulse Rate 55 L 51 L 52 L Respiratory Rate 15 17 22 H Respiratory Effort Blood Pressure 137/60 H 100/52 L 100/52 L Blood Pressure Mean 83 68 64 Pulse Ox 99 98 97 Oxygen Delivery Method 02/13/25 15:45 02/13/25 16:00 02/13/25 16:01 Temperature Temperature Source Pulse Rate 56 L 54 L Respiratory Rate 15 14 Respiratory Effort Blood Pressure 124/62 H 138/59 H 138/59 H Blood Pressure Mean 79 85 81 Pulse Ox 100 99 Oxygen Delivery Method 02/13/25 16:15 02/13/25 16:30 02/13/25 16:45 Temperature Temperature Source Pulse Rate 52 L 53 L Respiratory Rate 14 14 20 H Respiratory Effort Blood Pressure 120/53 L 155/57 H 160/108 H Blood Pressure Mean 75 83 125 Pulse Ox 99 98 Oxygen Delivery Method 02/13/25 17:00 02/13/25 17:15 02/13/25 17:30 Temperature Temperature Source Pulse Rate 57 L 60 60 Respiratory Rate 17 14 21 H Respiratory Effort Blood Pressure 173/53 H 112/75 Blood Pressure Mean 80 88 Pulse Ox 95 Oxygen Delivery Method Weight Weight: 84.912 kg Body Mass Index (BMI) 31.1 Physical Exam Narrative General: Alert, oriented, no apparent distress HEENT: Atraumatic, normocephalic Eyes: Anicteric, normal conjunctiva, extraocular movements grossly intact Neck: Supple Respiratory: Clear to auscultation bilaterally, normal respiratory effort Cardiovascular: Intermittent PVCs GI: Soft, nontender, nondistended Extremities: No edema Musculoskeletal: Moving all extremities Neuro: No overt focal neurological deficits Skin: No rashes appreciated Psych: Cooperative Results Lab / Micro Data 02/13/25 12:17 02/13/25 12:17 Labs: Laboratory Results - last 24 hr 02/13/25 12:17: WBC 8.1, RBC 4.50, Hgb 13.6, Hct 40.4, MCV 89.8, MCH 30.2, MCHC 33.7, RDW Std Deviation 41.4, RDW Coeff of Sarai 12.7, Plt Count 228, MPV 10.9, Immature Gran % (Auto) 0.200, Neut % (Auto) 50.9, Lymph % (Auto) 38.1, Stearns % (Auto) 8.7, Eos % (Auto) 1.2, Baso % (Auto) 0.9, Absolute Neuts (auto) 4.1, Absolute Lymphs (auto) 3.08, Nucleated RBC % 0, Sodium 138, Potassium 4.0, Chloride 101, Carbon Dioxide 23.7, Anion Gap 13, BUN 9, Creatinine 0.64 L, Estim Creat Clear Calc 60.35, Est GFR (MDRD) Non-Af 89, BUN/Creatinine Ratio 14.1, G lucose 102 H, Calcium 9.1, Magnesium 1.8, Troponin T High Sens 14, TSH 0.974 02/13/25 14:55: Troponin T Hi Sens 2 Hr 20 H 02/13/25 16:58: Troponin T Hi Sens 4Hr 16 H Imaging Radiology Impression Chest X-Ray 02/13/25 13:10 IMPRESSION: Acute process appreciated. Reading Location: [facility]- Assessment & Plan Assessment/Plan (1) Chest pain: PLAN: Plan #Chest pain -Symptoms vague, substernal with no exacerbating or relieving factors and she felt shaky and weak at that time, symptoms resolved -EKG noted to be bigeminy -Trop 14 then 16 and then 14 -Admit to telemetry -Echo ordered - Continue home Eliquis -Statin -Lipid panel in AM -Stress test ordered for AM #Paroxysmal Atrial Fibrillation -Rate control: Metoprolol -Anticoagulation: Eliquis #Hypothyroidism -Continue Synthroid # Overactive bladder - Continue home medications #DVT ppx: Not indicated, already on full dose anticoagulation Janett Smith MD Charges/Coding Visit Charges Inpatient E&M: 49555 Init Hosp L2
--- NOTE | 2025-02-13 17:57 | ECHOD_ITS ---
Reason For Study Reason For Study: Chest Pain Procedure This was a 2D Doppler, Color Flow transthoracic echocardiogram. Exam performed in department. Left Ventricle Normal LV size. Mild concentric left ventricular hypertrophy. Left ventricular systolic function is normal. The left ventricular ejection fraction is 60 %. At least stage I diastolic dysfunction. No regional wall motion abnormalities noted. Right Ventricle Normal RV size. Normal systolic function. Atria The left atrium is mildly enlarged. Normal right atrium. Mitral Valve Normal mitral valve. Trivial mitral valve insufficiency. Tricuspid Valve Normal tricuspid valve. Mild (1+) tricuspid valve insufficiency. Unable to estimate RV systolic pressure due to insufficient tricuspid regurgitant envelope. Aortic Valve Peak aortic valve gradient 36 mmHg. Mean aortic valve gradient 20 mmHg. Bioprosthetic aortic valve. Stable appearing bioprosthetic aortic valve apparatus. Pulmonic Valve Normal pulmonic valve. Trivial pulmonic valve insufficiency. Great Vessels Mild to moderately dilated aortic root. Inferior vena cava collapse with respiration. Pericardium/Pleural No pericardial effusion. MMode/2D Measurements & Calculations LVIDd: 5.5 cm IVSd: 1.3 cm LVOT diam: 2.0 cm LVIDs: 3.3 cm LVPWd: 1.0 cm LVOT area: 3.3 cm2 RVDd: 2.7 cm FS: 39.0 % Ao root diam: 4.5 cm LAV(MOD-bp): 68.6 ml LVAd ap4: 29.6 cm2 LAV(MOD-bp) Indexed: 35.7 ml/m2 LVLd ap4: 8.0 cm LAV(MOD-sp2): 63.2 ml EDV(MOD-sp4): 91.0 ml LAV(MOD-sp4): 65.9 ml EDV(sp4-el): 93.3 ml LVAs ap4: 16.3 cm2 LVLs ap4: 6.7 cm ESV(MOD-sp4): 33.3 ml ESV(sp4-el): 33.6 ml EF(MOD-sp4): 63.4 % EF(sp4-el): 64.0 % SV(MOD-sp4): 57.7 ml SV(sp4-el): 59.7 ml LA A4 area: 23.3 cm2 SI(MOD-sp4): 30.0 ml/m2 LA dimension(2D): 3.9 cm RA A4 area: 16.8 cm2 Time Measurements MV dec time: 0.34 sec Doppler Measurements & Calculations MV E max philipp: 102.3 cm/sec Lat Peak E' Philipp: 7.2 cm/sec Med Peak E' Philipp: 5.4 cm/sec MV A max philipp: 111.4 cm/sec E/E' lat: 14.3 E/E' med: 18.9 MV E/A: 0.92 MV V2 max: 126.8 cm/sec MV P1/2t max philipp: 121.7 cm/sec Ao V2 max: 301.6 cm/sec MV max P.4 mmHg MV P1/2t: 115.3 msec Ao max P.4 mmHg MV V2 mean: 59.9 cm/sec Ao V2 mean: 208.5 cm/sec MV mean P.9 mmHg MV dec slope: 309.1 cm/sec2 Ao mean P.7 mmHg MV V2 VTI: 52.4 cm MVA(P1/2t): 1.9 cm2 Ao V2 VTI: 82.1 cm AV (velocity ratio): 0.39 MVA(VTI): 2.0 cm2 MATTHEW(I,D): 1.3 cm2 MATTHEW(V,D): 1.3 cm2 LV V1 max: 115.2 cm/sec SV(LVOT): 105.0 ml LV V1 max P.3 mmHg LV V1 mean P.7 mmHg LV V1 mean: 75.4 cm/sec LV V1 VTI: 32.1 cm ECHO/Echo Complete Interpretation Summary Mild concentric left ventricular hypertrophy. The left ventricular ejection fraction is 60 %. At least stage I diastolic dysf unction. The left atrium is mildly enlarged. Mild (1+) tricuspid valve insufficiency. Stable appearing bioprosthetic aortic valve apparatus. Mild to moderately dilated aortic root. Compared to prior study, there is no significant change. Ordering Physician: Janett Smith Performed By: Mitchel Hartley RCS
--- OUTSIDE RECORDS SUMMARY | 2025-02-13 18:49 | XMS RPT_ITS | CCD ---
Author Organization [facility] Care Team Providers Care Principal Quality Engineer Name Role Phone MD Fairchild Cyril S Unavailable Bre LONG, Micah A Primary Care Provider Lynn Christensen Unavailable [phone] Micah Díaz Primary Care Provider [...] Attending Provider [phone] Lynn Christensen Un[address] Dr. Micah Díaz Primary Care Provider [phone] Dr. Angel Fairchild Attending Provider [phone] Angel Fairchidl Other Provider Dr. Angel Fairchild Referring Provider [phone] SIS Carter Other Provider [phone] Dr. Stepan Horner Attending Provider Dr. Micah Díaz Referring Provider Leigh Ann ALEGRE, PA Ileana Briggs Attending Provider Dr. Reginald Carey Attending Provider Dr. Micah Díaz Primary Care Provider [phone] Dr. Micah Díaz Referring Provider [phone] Leigh Ann ALEGRE, PA Ileana Briggs Attending [...] Micah Díaz DO Primary Care Provider [phone] Dr. Matti Camarillo DO Attending Provider Dr. Matti Camarillo DO Referring Provider Bre LONG, Dr. Shaikh Primary Care Provider Yaoing DPM, Dr. Alvarado Attending Provider Wunning DPM, Dr. Alvarado Referring Provider Amparo FLEMING, Dr. Bailey Attending Provider [facility], Dr. Shaikh Referring Provider [facility], Dr. Shaikh Primary Care Physician Marquise DO, Dr. Chino Attending Physician Wunning DPM, Dr. Alvarado Attending Physician [phone] Amparo FLEMING, Dr. Bailey Attending Physician [facility], Dr. Shaikh Primary Care Physician [facility], Dr. Shaikh Attending Physician Aurelio LFEMING, Dr. Montelongo Attending Physician [facility], Dr. Shaikh Primary Care Physician Wunning DPM, [...] Unavailable Bala CANAS, Milka Referring Unavailable Bala WOOL HAT HYDRAULICKER, Milka Attending Unavailable Christiano Medeiros Referring Unavailable [...] Referring Unavailable WyneskiLynn Attending Unavailable Bre, Micah Primary [...] Unavailable Bre, Micah Primary Care Unavailable Bala WOOL HAT HYDRAULICKER, Milka Attending Unavailable Rene Lomax Referring Unavailable Rene Lomax Attending Unavailable Bre, Micah Primary Care Unavailable Matti Camarillo Referring Unavailable WiMatti fitzpatrick Attending Unavailable Bre, Micah Primary Care Unavailable Allergies Allergy Classification Reported Allergen(s) Allergy Type Date of Onset Reaction(s) Facility (1 source) Amitriptyline Drug Allergy 1 [facility] Work Phone: (2 sources) gabapentin; Translations: [NEURONTIN] Drug Allergy 1 [facility] Work Phone: (20 sources) Naproxen; Translations: [NAPROXEN] Drug Allergy 6 [facility] Work Phone: (20 sources) traMADol; Translations: [TRAMADOL] Drug Allergy 6 Unknown [facility] Work Phone: (1 source) valdecoxib; Translations: [BEXTRA] Drug Allergy 1 [facility] Work Phone: (20 sources) Amitriptyline; Translations: [AMITRIPTYLINE] Drug Allergy 4 Rash [facility] Work Phone: (20 sources) Amitriptyline; Translations: [AMITRIPTYLINE HCL] Drug Allergy 6 Intolerance [facility] (20 sources) oxybutynin; Translations: [OXYBUTYNIN] Drug Allergy 2 Swelling [facility] (20 sources) valdecoxib; Translations: [VALDECOXIB] Drug Allergy 4 [facility] Work Phone: (9 sources) tolterodine; Translations: [TOLTERODINE] Drug Allergy 2 Other: See [facility] (20 sources) amLODIPine; Translations: [AMLODIPINE] Drug Allergy 3 Swelling [place] (1 source) Amitriptyline Drug Allergy 5 [facility] (1 source) amLODIPine Drug Allergy 5 [facility] (1 source) valdecoxib Drug Allergy 5 [facility] Medications Current Medications Medication Drug Class(es) [...] tablet by mouth once a day CHOLECALCIFEROL [id number] Angel Fairchild MD cholecalciferol, vitamin D3, (VITAMIN [...] One tablet by mouth daily COENZYME Q10 [id number] Angel Fairchild MD coenzyme Q10 (CO ENZYME [...] 03, 2022 12:00am January 07, 2023 2:25pm Bjdn-U30-Tjprqinr injectable (3 sources) Start: 01-20-2025 Fesa-T11-Fwhlz ins injectable Active NMA IM January 20, 2025 12:00am Complies with drug therapy lactobacillus acidophilus [id number] unt oral capsule (20 sources) Lactobacillus ac [...] One tablet by mouth daily LEVOTHYROXINE SODIUM 71478253877 Angel Fairchild MD Start: 10-02-2011 take 1 tablet by dereje th once daily LEVOTHROID 125 MCG TABS One tablet by mouth daily LEVOTHYROXINE SODIUM Angel Fairchild MD Start: 10-03-2010 take 1 tablet by dereje th once daily LEVOTHYROXINE SODIUM 100 MCG TABS One tablet by mouth daily LEVOTHYROXINE SODIUM 51606953815 Gloria Esparza End: 03-29-2024 Levothyroxine 100 mcg [...] tablet by mouth twice daily METOPROLOL TARTRATE 50222422103 Angel Fairchild MD Start: 12-18-2010 METOPROLOL TAR TRATE 50 MG TABS 1/2 tablet 2 X daily METOPROLOL TARTRATE 49721509793 Angel Fairchild MD Start: 10-28-2010 End: 03-29-2024 [...] mouth 1 hr prior to procedure AMOXICILLIN 60252198356 Angel Fairchild MD apixaban 5 mg oral [...] 1 tablet by mouth every evening ASPIRIN [id number] Gloria Esparza Comment on above: Take 1 tablet by dereje th once daily. atropine sulfate 0.025 mg / diphenoxylate hydrochloride 2.5 mg oral tablet (20 sources) Anticholinergic, Cholinergic Muscarinic Antagonist, Antidiarrheal Start: 12-18-2010 LOMOTIL 2.5-0.025 MG TABS As needed DIPHENOXYLATE-ATROPINE [id number] Gloria Esparza Start: 10-22-2010 diphenoxylate- atropine (LOMOTIL) [...] 0 10/22/2010 03/29/2024 Discontinued Start: 10-22-2010 B.ani-L.aci-L. dayne-L.plan-L.Avn 10 billion cell (2 billion ea) cap [...] Comment on above: Take 1 capsule by [facility] three times daily as needed for Cough. [...] tablet by mouth twice daily DOCUSATE SODIUM 14395602872 Angel Fairchild MD dronedarone 400 mg oral [...] biest: Apply as directed ESTROGENS, CONJUGATED CREA [id number] Gloria Esparza Start: 10-03-2010 End: 10-02-2011 PREMARIN CREA 2mg/mL, topica l cream biest: Apply as directed ESTROGENS, CONJUGATED CREA 93957744638 Angel Fairchild MD ferrous gluconate 324 mg [...] tablet by mouth daily at bedtime FIBER 41388354396 Angel Fairchild MD furosemide 20 mg oral [...] Two tablets by mouth at bedtime. GABAPENTIN [id number] Angel Fairchild MD End: 03-22-2022 GABAPENTIN ORAL Take by mout h. 0 03/22/2022 Discontinued GABAPENTIN ORAL Take by mouth. 0 Active Comment on above: Take by mouth. LORazepam 0.5 mg oral tablet (2 sources) Benzodiazepine Start: 1 End: 5 take 1 tablet by mouth at bedtime ATIVAN 0.5 MG TABS One tablet by mouth at bedtime. LORAZEPAM 03541231339 Angel Fairchild MD losartan potassium 25 mg [...] day 4, 1 pill day 5 METHYLPREDNISOLONE 47912472563 Georgia Romano MULTIPLE VITAMIN (2 sources) Start: 10-03-2010 take 1 tablet by mouth once daily MULTIVITAMINS TABS One tablet by mouth daily MULTIPLE VITAMIN 27000587101 Gloria Esparza Start: 10-03-2010 End: 10-02-2011 take 1 tablet by mouth once daily MULTIVITAMINS TABS One tablet by mouth daily MULTIPLE VITAMIN 55012210674 Angel Fairchild MD niacin 500 mg oral tablet (2 sources) Nicotinic Acid Start: 10-03-2010 End: 10-02-2011 take 1 tablet by mouth three times daily NIACIN 500 MG TABS One tablet by mouth three times daily NIACIN 80736696073 Angel Fairchild MD nitrofurantoin, macrocrystals 25 mg [...] CPDR One tablet by mouth daily OMEPRAZOLE 65943200757 Angel Fairchild MD OTC PRODUCT (18 sources) [...] One tablet by mouth daily POLYPODIUM LEUCOTOMOS [id number] Ileana Beltrán PA-C End: 03-22-2022 POLYPODIUM LEUCOTOMOS EXTRAC T (HELIOCARE ORAL) Take by mouth. 0 03/22/2022 Discontinued POLYPODIUM LEUCO TOMOS EXTRACT (HELIOCARE ORAL) Take by mouth. 0 Active Comment on above: Take by mouth. PROBIOTIC PRODUCT (1 source) Start: 05-19-2015 take 1 tablet by mouth once daily PROBIOTIC DAILY CAPS One tablet by mouth daily PROBIOTIC PRODUCT [id number] Angel Fairchild MD PROGESTERONE MICRONIZED CAPS (2 sources) Progesterone Start: 10-03-2010 PROMETRIUM CAPS 100%, 100mg 1 tablet by mouth daily (Compounded) PROGESTERONE MICRONIZED CAPS [id number] Gloria Esparza Start: 10-03-2010 End: 10-02-2011 PROMETRIUM CAPS 100%, 100mg 1 tablet by mouth daily (Compounded) PROGESTERONE MICRONIZED CAPS 37260344199 Angel Fairchild MD rOPINIRole 0.25 mg oral [...] Comment on above: Take 1 capsule by [facility] once daily. Vitamin B 12 (1 source) Vitamin B12 Start: 05-12-2014 VITAMIN B-12 1000 MCG/15ML LIQD injections, as directed CYANOCOBALAMIN 22839167917 Angel Fairchild MD B COMPLEX VITAMINS (2 sources) Start: 10-03-2010 take 1 tablet by mouth once daily VITAMIN B COMPLEX TABS One tablet by mouth daily B COMPLEX VITAMINS 36727637016 Gloria Esparza Start: 10-03-2010 End: 05-12-2014 take 1 tablet by mouth once daily VITAMIN B COMPLEX TABS One tablet by mouth daily B COMPLEX VITAMINS 59829249092 Angel Fairchild MD Problems Active Problems Problem [...] (6 sources) Anticoagulant control - finding; Translations: [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] 01-20-2025 Episodic Other [...] Christensen on 02-02-2025 Bilirubin Ql (U) Negative [place] Glucose Ql (U) Negative [place] Ketones Ql (U) Negative [place] pH (U) 6 [pH] [place] Specific gravity (U) [Rel density] 1.015 [place] Urobilinogen (U) [Mass/Vol] 0.2060550 mg/dL [facility] [facility] - Hematology and Cell countsOrdered By: Lynn Christensen on 02-02-2025 Hemoglobin Ql (U) Trace [facility] [facility] - Specimen inform ationOrdered By: Lynn Christensen on 02-02-2025 Color (U) YELLOW [facility] - UrinalysisOrder ed By: Lynn Christensen on 02-02-2025 Nitrite Ql (U) Negative [place] Protein Ql (U) Negative [place] MR/Arianna 02-02-2025 MR/FORREST [facility] [address], [address] [place] [address] OFFICE VISIT Date of Service: 02/02/25 MR#: [id number] Acct: [id number] Name: FABRICE MOON Rep #: [id number] : 1945 Provider: Dr. Lynn Tejada i, MD Age/Sex: 79/F Location: [facility] Status: Signed Intake Vital Signs 01/12/25 11:32 01/26/25 11:35 02/02/25 11:12 Height 5 ft 5 in 5 ft 5 in 5 ft 5 in Weight: 184 lb 184 lb BMI 30.6 30.6 BP 124/80 H 126/78 H Pulse 70 70 Temp 98.1 F 97.9 F Intake Visit Reasons: PTNS Chief Complaint: PTNS Skiing Teacher Required: No Is patient in pain?: No [...] mg PO BID #180 tabs 01/20/25 Rx tqoz-N97-emjbxxeq intramuscular ea IM 01/20/25 02/02/25 History trazodone [...] structures Neck (more content not included)... Normal [place] No Panel InformationOrdered By: Lynn Christensen on 02-02-2025 Urine Leukocytes Negatve [place] MR/BMS.Dunia 01-26-2025 MR/BMS.ADAN [facility] [address], [address] [place] [address] OFFICE VISIT Date of Service: 01/26/25 MR#: [id number] Acct: [id number] Name: FABRICE MOON Rep #: [id number] : 1945 Provider: Dr. Lynn Tejada i, MD Age/Sex: 79/F Location: [facility] Status: Signed Intake Vital [...] Intake Visit Reasons: PTNS Chief Complaint: PTNS Skiing Teacher Required: No Is patient in pain?: No [...] mg PO BID #180 tabs 01/20/25 Rx camf-P83-svlobdsj intramuscular ea IM 01/20/25 01/26/25 History trazodone [...] Ears: heari (more content not included)... Normal [place] [facility] Visit Reporton Cardiology Visit Report [facility] [address] [place] [address] OFFICE VISIT Date of Service: 01/20/25 MR#: [id number] Acct: [id number] Name: FABRICE MOON Rep #: [id number] : 1945 Provider: SIS Mcarthur Age/Sex: 79/F Location: [facility] Status: Signed HPI HPI History of Present [...] air Intake Visit Reasons: 6 M FU Skiing Teacher Required: No Accompanied by: Self Is patient [...] mg PO BID #180 tabs 01/20/2501/06 Rx lpas-F48-ayfqtago intramuscular ea IM 01/20/25 01/20/25 History trazodone [...] well. She blames her fatigue on this. [facility] Medical History PAF (paroxysmal atrial fibrillation) New [...] vision ENT (more content not included)... Normal [place] MR/BMSОльга 01-19-2025 MR/BMSBRENNA [facility] [address], [address] [place] [address] OFFICE VISIT Date of Service: 01/19/25 MR#: [id number] Acct: [id number] Name: FABRICE MOON Rep #: [id number] : 1945 Provider: Dr. Lynn Tejada i, MD Age/Sex: 79/F Location: [facility] Status: Signed Intake Vital Signs 12/29/24 11:52 01/12/25 11:32 01/19/25 12:56 Height 5 ft 5 in 5 ft 5 in 5 ft 5 in Weight: 178 lb 178 lb BMI 29.6 29.6 BP 126/80 H 124/82 H Respiration 74 H Pulse 74 Temp 98.1 F 98 F Intake Visit Reasons: PTNS Chief Complaint: PTNS Skiing Teacher Required: No Is patient in pain?: No [...] mg PO BID #180 tabs 01/20/2501/06 Rx dbso-P24-egwsrtsx intramuscular ea IM 01/20/25 01/20/25 History trazodone [...] nose normal (more content not included)... Normal [place] PT D/C Summary (1)on 025 PT D/C Summary (1) [facility] [address] [place] [address] / REHABILITATION SERVICES DISCHARGE SUMMARY MR#: [id number] Acct: [id number] Name: FABRICE MOON Rep #: [id number] : 1945 79 From: Maryana Guerrero MPT [...] please feel free to call me at [phone]. Thank you for the referral of this patient. Sincerely, Maryana Guerrero, MPT Balance/Gait/Functio nal tests Balance/Special Test Scores Lower Extremity Functional Score: 46 Improvement % Improvement: 65 01/19/25 9626 CC: ANKIT Medeiros; Dr. Micah Díaz, DO Signed Normal [facility] [facility] - Chemistry and C hemistry - challengeOrdered By: Lynn Christensen on 01-14-2025 Bilirubin Ql (U) Negative [place] Glucose Ql (U) Negative [place] Ketones Ql (U) Negative [place] pH (U) 5.5 [pH] [place] Specific gravity (U) [Rel density] 1.015 [place] Urobilinogen (U) [Mass/Vol] 0.4943696 mg/dL [facility] [facility] - Hematology and Cell countsOrdered By: Lynn Christensen on 01-14-2025 Hemoglobin Ql (U) Moderate [facility] - UrinalysisOrder ed By: Lynn Christensen on 01-14-2025 Nitrite Ql (U) Negative [place] Protein Ql (U) Trace [place] No Panel InformationOrdered By: Lynn Christensen on 01-14-2025 Urine Leukocytes Positive [place] Urine Non-Hemolyzed Blood Negative [place] Office Visit Reporton 2024 Office Visit Report [facility] [address] [place] [address] OFFICE VISIT Date of Service: 01/14/25 MR#: [id number] Acct: [id number] Patient: FABRICE MOON Rep #: [id number] : 1945 Provider: Dr. Lynn Tejada i, MD Age/Sex: 79/F Location: [facility] Status: Signed Intake Vital Signs 01/12/25 11:32 [...] Rasheed on 01/14/25 15:47 Off Ur Spec [place] 1.015 Last Edit by Jo Rasheed on 01/14/25 15:47 Office Urine pH 5.5 Last Edit by Jo Rasheed on 01/14/25 15:47 Office Urine Protein Trace Last Edit by Jo Rasheed on 01/14/25 15:47 Office Urine Blood Moderate Last Edit by Jo Rashede on 01/14/25 15:47 Office Urine Blood Hemolyzed [...] Cosigner Signature: Date (if applicable) CC: Rogelio [place] MR/BMSОльга 01-12-2025 MR/BMSBRENNA [facility] [address], [address] [place] [address] OFFICE VISIT Date of Service: 01/12/25 MR#: [id number] Acct: [id number] Name: FABRICE MOON Rep #: [id number] : 1945 Provider: Dr. Lynn Tejada i, MD Age/Sex: 79/F Location: [facility] Status: Signed Intake Vital Signs 12/29/24 11:52 01/05/25 14:01 01/12/25 11:32 Height 5 ft 5 in 5 ft 5 in 5 ft 5 in Weight: 178 lb BMI 29.6 BP 126/80 H Pulse 74 Temp 98.1 F Intake Visit Reasons: PTNS Chief Complaint: PTNS Skiing Teacher Required: No Is patient in pain?: No [...] healthy appearing, comfortable and no acute distress [facility] Head: normocephalic and atraumatic Ears: hearing grossly normal bilaterally and external ears normal Nose: external nose normal Eyes General: appearance normal, both eyes and all related structures Neck Neck: normal visual inspection and trachea midline Chest Chest palpation inspection: normal inspection of (more content not included)... Normal [place] Venous duplex ultrasound rep ortOrdered By: Reginald Carey on 01-10-2025 US Vein [facility] [place] [address] Venous Duplex US, Unilateral 01/07/25 1256 MR#: [id number] Acct: [id number] Name: FABRICE MOON Rep #:[id number] : [...] Date Dictated: 01/07/25 1256 Date Transcribed: 01/10/25733 Lyric Writer: Signed [place] Work Phone: Venous Duplex US, Unilateral on 01-07-2025 Venous Duplex US, Unilateral [facility] [address] [place] [address] Venous Duplex US, Unilateral 01/07/251255 MR#: [id number] Acct: [id number] Name: FABRICE MOON Rep #: [id number] : 1945 79 From: Reginald Carey MD [...] Dictated: 01/07/25 1256 Date Transcribed: 01/10/25 0734 Lyric Writer: Abdoul [facility] MR/HAYDEEAbDunia 01-05-2025 MR/FORREST [facility] [address] [place] [address], [address] [place] [address] OFFICE VISIT Date of Service: 01/05/25 MR#: [id number] Acct: [id number] Name: FABRICE MOON Rep #: [id number] : 1945 Provider: Dr. Lynn Tejada i, MD Age/Sex: 79/F Location: [facility] Status: Signed Intake Vital Signs 12/29/24 11:52 01/05/25 14:01 Height 5 ft 5 in 5 ft 5 in Weight: 178 lb BMI 29.6 BP 128/84 H Pulse 60 Temp 97.9 F Intake Visit Reasons: PTNS Chief Complaint: PTNS Skiing Teacher Required: No Is patient in pain?: No [...] healthy appearing, comfortable and no acute distress [facility] Head: normocephalic and atraumatic Ears: hearing grossly normal bilaterally and external ears normal Nose: external nose normal Eyes General: appearance normal, both eyes and all related structures Neck Neck: normal visual inspection and trachea midline Chest Chest palpation inspection: normal inspection of the chest Resp Effort (more content not included)... Normal [place] MR/BMSBRENNAlyly 12-29-2024 MR/BMSBRENNA [facility] [address], [address] [place] [address] OFFICE VISIT Date of Service: 12/29/24 MR#: [id number] Acct: [id number] Name: FABRICE MOON Rep #: [id number] : 1945 Provider: Dr. Lynn Tejada i, MD Age/Sex: 79/F Location: [facility] Status: Signed Intake Vital Signs 12/07/24 15:31 12/22/24 11:30 12/29/24 11:52 Height 5 ft 5 in 5 ft 5 in 5 ft 5 in Weight: 178 lb 178 lb BMI 29.6 29.6 BP 126/78 H 124/78 H Pulse 64 76 Temp 97.9 F 97.9 F Intake Visit Reasons: ptns Chief Complaint: PTNS Skiing Teacher Required: No Is patient in pain?: No [...] related structu (more content not included)... Normal [place] MR/BMSBRENNA 12-22-2024 MR/BMSBRENNA [facility] [address], [address] [place] [address] OFFICE VISIT Date of Service: 12/22/24 MR#: [id number] Acct: [id number] Name: FABRICE MOON Rep #: [id number] : 1945 Provider: Dr. Lynn Tejada i, MD Age/Sex: 79/F Location: [facility] Status: Signed Intake Vital Signs 12/07/24 15:31 12/15/24 11:28 12/22/24 11:30 Height 5 ft 5 in 5 ft 5 in 5 ft 5 in Weight: 178 lb 178 lb 178 lb BMI 29.6 29.6 29.6 BP 120/78 128/84 H 126/78 H Pulse 60 68 64 Temp 98 F 98 F 97.9 F Intake Visit Reasons: ptns Chief Complaint: PTNS Skiing Teacher Required: No Is patient in pain?: No [...] healthy appearing, comfortable and no acute distress [facility] Head: normocephalic and atraumatic Ears: hearing grossly normal bilaterally and external ears normal Nose: external nose normal Eyes General: appearance normal, both eyes and all related structures Neck Neck: normal visual inspection and trachea midline Chest Chest palpation in (more content not included)... Normal [place] MR/FORRESTlyly 12-15-2024 MR/BMSBRENNA [facility] [address], [address] [place] [address] OFFICE VISIT Date of Service: 12/15/24 MR#: [id number] Acct: [id number] Name: FABRICE MOON Rep #: [id number] : 1945 Provider: Dr. Lynn Tejada i, MD Age/Sex: 79/F Location: [facility] Status: Signed Intake Vital Signs 12/07/24 15:31 12/15/24 11:28 Height 5 ft 5 in 5 ft 5 in Weight: 178 lb 178 lb BMI 29.6 29.6 BP 120/78 128/84 H Pulse 60 68 Temp 98 F 98 F Intake Visit Reasons: ptns Chief Complaint: PTNS Skiing Teacher Required: No Is patient in pain?: No [...] Resp Effor (more content not included)... Normal [place] MR/BMSОльга 12-07-2024 MR/BMSBRENNA [facility] [address], [address] [place] [address] OFFICE VISIT Date of Service: 12/07/24 MR#: [id number] Acct: [id number] Name: FABRICE MOON Rep #: [id number] : 1945 Provider: Dr. Lynn Tejada i, MD Age/Sex: 79/F Location: [facility] Status: Signed Intake Vital Signs 07/20/24 11:01 12/07/24 15:31 Height 5 ft 5 in 5 ft 5 in Weight: 178 lb BMI 29.6 BP 120/78 Pulse 60 Temp 98 F Intake Visit Reasons: PTNS Chief Complaint: PTNS Skiing Teacher Required: No Is patient in pain?: No [...] needle electrode.???The (more content not included)... Normal [place] [facility] - Chemistry and C hemistry - challengeOrdered By: Lynn Christensen on 11-17-2024 Bilirubin Ql (U) Negative [place] Glucose Ql (U) Negative [facility] Ketones Ql (U) Negative [place] pH (U) 6.5 [pH] [place] Specific gravity (U) [Rel density] 1.005 [place] Urobilinogen (U) [Mass/Vol] Negative [facility] [facility] - Hematology and Cell countsOrdered By: Lynn Christensen on 11-17-2024 Hemoglobin Ql (U) Small [facility] [facility] - UrinalysisOrder ed By: Lynn Christensen on 11-17-2024 Nitrite Ql (U) Negative [place] Protein Ql (U) Negative [place] No Panel InformationOrdered By: Lynn Christensen on 11-17-2024 Urine Leukocytes Positive [place] Urine Non-Hemolyzed Blood Negative [place] Magnetic resonance imaging r eportOrdered By: Jose Gardiner on 09-17-2024 Study report [facility] Services [address] [place] [address] Lower Ext Joint Only (Routine) MR#: [id number] Acct: [id number] Name: FABRICE MONO Rep #: [id number] : 1945 F 79 From: Neville Gardiner DO PCP: Dr. Micah Díaz, Status: REG CLI Study:Lower Ext Joint Only (Routine) Date of Exam: 09/15/24 Exam# [id number] Ordering Dr: Christiano Medeiros DPBrigitte PROCEDURE: LOWER [...] ANKIT Medeiros; Dr. Micah Díaz DO ~ Lyric Writer: Signed [place] Lower Ext Joint Only (Routin e)on 09-15-2024 Lower Ext Joint Only (Routine) [facility] Services [address] [place] [address] [id number] Lower Ext Joint Only (Routine) MR#: [id number] Acct: [id number] Name: FABRICE MOON Rep #: [id number] : 1945 F 79 From: Jose Cook PCP: Dr. Micah Díaz DO Status: REG CLI Study: Lower Ext Joint Only (Routine) Date of Exam: 0 09/15/24 Exam# [id number] Ordering Dr: Christiano Medeiros DPM PROCEDURE: LOWER [...] CC: ANKIT Medeiros; Dr. Micah Díaz DO Lyric Writer: Signed Normal [place] Anion gap in Serum or Plasma Ordered By: Matti Camarillo on 08-31-2024 Anion gap [Moles/Vol] 11 mmol/L 5- [facility] BUN/creatinine ratioOrdered By: Matti Camarillo on 08-31-2024 Urea nitrogen/Creatinine [Mass ratio] 19.6 mg/mg 01-31 [place] Bilirubin, totalOrdered By: Matti Camarillo on 08-31-2024 Bilirubin [Mass/Vol] 0.55 mg/dL 0.00-1.30 [facility] Calculated very low density lipoprotein (VLDL) cholesterol measurementOrdered By: Matti Camarillo on 08-31-2024 Calculated very low density lipoprotein (VLDL) cholesterol measurement 40 mg/dL -40 [place] Carbon dioxide, total [Moles /volume] in Central venous bloodOrdered By: Matti Camarillo on 08-31-2024 CO2 [Moles/Vol] 24.4 mmol/L 21.0-32.0 [place] Chloride assayOrdered By: Randy Camarillo on 08-31-2024 Chloride [Moles/Vol] 105 mmol/L 98-108 [facility] Comprehensive Metabolic Prof ilon 08-31-2024 Albumin [Mass/Vol] 4.4 g/dL Normal 3.4-4.8 [facility] Comment on above: Performed By: #### L 500.4050, L506.1001, L501.9520, L500.4100 ####[place] [address] [place], [address] Albumin/Globulin [Mass ratio] 1.3 {ratio} Normal 0.9-2.4 [facility] Comment on above: Performed By: #### L 500.4050, L506.1001, L501.9520, L500.4100 ####[place] [address] [place], [address] ALK PHOS 69 U/L Normal 35-104 [facility] Comment on above: Performed By: #### L 500.4050, L506.1001, L501.9520, L500.4100 ####[place] [address] [place], [address] ALT [Catalytic activity/Vol] 21 U/L Normal <=34 [facility] Comment on above: Performed By: #### L 500.4050, L506.1001, L501.9520, L500.4100 ####[place] [address] [place], [address] AST [Catalytic activity/Vol] 28 U/L Normal <=31 [facility] Comment on above: Performed By: #### L 500.4050, L506.1001, L501.9520, L500.4100 ####[place] [address] [place], [address] Bilirubin [Mass/Vol] 0.55 mg/dL Normal 0.00-1.30 [facility] Comment on above: Performed By: #### L 500.4050, L506.1001, L501.9520, L500.4100 ####[place] [address] [place], [address] BUN/CRE 19.6 RATIO Normal 10-20 [facility] Comment on above: Performed By: #### L 500.4050, L506.1001, L501.9520, L500.4100 ####[place] [address] [place], [address] Calcium [Mass/Vol] 9.9 mg/dL Normal 7.6-11.0 [facility] Comment on above: Performed By: #### L 500.4050, L506.1001, L501.9520, L500.4100 ####[place] [address] [place], [address] Chloride [Moles/Vol] 105 mmol/L Normal 98-108 [facility] Comment on above: Performed By: #### L 500.4050, L506.1001, L501.9520, L500.4100 ####[place] [address] [place], [address] CO2 [Moles/Vol] 24.4 mmol/L Normal 21.0-32.0 [facility] Comment on above: Performed By: #### L 500.4050, L506.1001, L501.9520, L500.4100 ####[place] [address] [place], [address] Creatinine [Mass/Vol] 0.67 mg/dL Low 0.70-1.20 [facility] Comment on above: Performed By: #### L 500.4050, L506.1001, L501.9520, L500.4100 ####[place] [address] [place], [address] GAP 11 Normal 5-15 [facility] Comment on above: Performed By: #### L 500.4050, L506.1001, L501.9520, L500.4100 ####[place] [address] [place], [address] GFR/1.73 sq M.predicted among non-blacks MDRD (S/P/Bld) [Vol rate/Area] 88 mL/min/{1.73_m2} Normal >60 [facility] Comment on above: Result Comment: mL/m in/1.73m2 CKD-EPI Creatinine Equation (2020) Performed By: #### L 500.4050, L506.1001, L501.9520, L500.4100 ####[place] [address] [place], [address] Globulin (S) [Mass/Vol] 3.3 g/dL Normal 2.2-4.2 [facility] Comment on above: Performed By: #### L 500.4050, L506.1001, L501.9520, L500.4100 ####[place] [address] [place], [address] Glucose [Mass/Vol] 99 mg/dL Normal 70-99 [facility] Comment on above: Performed By: #### L 500.4050, L506.1001, L501.9520, L500.4100 ####[place] [address] [place], [address] Potassium [Moles/Vol] 4.4 mmol/L Normal 3.3-5.1 [facility] Comment on above: Performed By: #### L 500.4050, L506.1001, L501.9520, L500.4100 ####[place] [address] [place], [address] Sodium [Moles/Vol] 141 mmol/L Normal 133-145 [facility] Comment on above: Performed By: #### L 500.4050, L506.1001, L501.9520, L500.4100 ####[place] [address] [place], [address] T PROT 7.6 g/dL Normal 5.9-8.4 [facility] Comment on above: Performed By: #### L 500.4050, L506.1001, L501.9520, L500.4100 ####[place] [address] [place], [address] Urea nitrogen [Mass/Vol] 13 mg/dL Normal 4-19 [facility] Comment on above: Performed By: #### L 500.4050, L506.1001, L501.9520, L500.4100 ####[place] [address] [place], [address] Glomerular filtration rate ( GFR) estimation/1.73 sq m using serum, plasma, or whole bOrdered By: Matti Camarillo on 08-31-2024 GFR/1.73 sq M.predicted among non-blacks MDRD (S/P/Bld) [Vol rate/Area] 88 mL/min/{1.73_m2} >60 [facility] Comment on above: mL/min/1.73m2 CKD-EP I Creatinine Equation (2020) LDL calc ser/plasOrdered By: Matti Camarillo on 08-31-2024 Cholesterol in LDL [Mass/Vol] 129 mg/dL [facility] Comment on above: Nqcuunulgc=817-375 m g/dL & Higher Slij=146 mg/dL or greater Laboratory - Chemistry and C hemistry - challengeOrdered By: Matti Camarillo on 08-31-2024 AST [Catalytic activity/Vol] 28 U/L <32 [facility] Lipid Profileon 08-31-2024 CHOL:HDL 4.24 Normal [facility] Comment on above: Performed By: #### L 500.4050, L506.1001, L501.9520, L500.4100 ####[place] [address] [place], [address] Cholesterol [Mass/Vol] 222 mg/dL High <=200 [facility] Comment on above: Result Comment: Chol esterol level, Desirable <200 mg/dL Borderline high cholesterol 200-239 mg/dL High cholesterol >=240 mg/dL Recommendations of the NCEP Adult Treatment Panel for the following risk-cutoff thresholds for the [place] population. Performed By: #### L 500.4050, L506.1001, L501.9520, L500.4100 ####[place] [address] [place], [address] Cholesterol in HDL [Mass/Vol] 52 mg/dL Normal [facility] Comment on above: Result Comment: Mona onal Cholesterol Education Program (NCEP) guidelines: <40 mg/dL: Low HDL-cholesterol (major risk factor for CHD) >= 60 mg/dL: High HDL-cholesterol (negative risk factor for CHD) HDL-cholesterol is affected by a number of factors, e.g. smoking, exercise, hormones, sex and age. Performed By: #### L 500.4050, L506.1001, L501.9520, L500.4100 ####[place] [address] [place], [address] Cholesterol in LDL [Mass/Vol] 129 mg/dL Normal [facility] Comment on above: Result Comment: Bord mvhser=146-205 mg/dL Higher Dywd=493 mg/dL or greater Performed By: #### L 500.4050, L506.1001, L501.9520, L500.4100 ####[place] [address] [place], [address] Cholesterol in VLDL [Mass/Vol] 40 mg/dL Normal 5-40 [facility] Comment on above: Performed By: #### L 500.4050, L506.1001, L501.9520, L500.4100 ####[place] [address] [place], [address] Triglyceride [Mass/Vol] 202 mg/dL High [facility] Comment on above: Result Comment: The drugs N-Acetylcysteine and Metamizole may falsely depress this assay. Normal range: <150 mg/dL Borderline High: 150-199 mg/dL High: 200-499 mg/dL Very High: >500 mg/dL Performed By: #### L 500.4050, L506.1001, L501.9520, L500.4100 ####[place] [address] [place], [address] Potassium measurement (mass/ volume)Ordered By: Matti Camarillo on 08-31-2024 Potassium (Unsp spec) [Mass/Vol] 4.4 mmol/L 3.3-5.1 [facility] Screening total cholesterol/ high density lipoprotein (HDL) cholesterol ratioOrdered By: Matti Camarillo on 08-31-2024 Cholesterol.total/Choles terol in HDL [Mass ratio] 4.24 {ratio} [facility] Serum creatinine measurement (mass/volume)Ordered By: Matti Camarillo on 08-31-2024 Creatinine [Mass/Vol] 0.67 mg/dL Low 0.70-1.20 [facility] Serum globulin measurementOr dered By: Matti Camarillo on 08-31-2024 Globulin (S) [Mass/Vol] 3.3 g/dL 2.2-4.2 [facility] Serum glucose measurement (m ass/volume)Ordered By: Matti Camarillo on 08-31-2024 Glucose [Mass/Vol] 99 mg/dL 70-99 [facility] Serum or plasma alanine oliveira otransferase (ALT) measurementOrdered By: Matti Camarillo on 08-31-2024 ALT [Catalytic activity/Vol] 21 U/L <35 [facility] Serum or plasma albumin deo urement (mass/volume)Ordered By: Matti Camarillo on 08-31-2024 Albumin [Mass/Vol] 4.4 g/dL 3.4-4.8 [facility] Serum or plasma albumin/glob ulin mass ratioOrdered By: Matti Camarillo on 08-31-2024 Albumin/Globulin [Mass ratio] 1.3 {ratio} 0.9-2.4 [facility] Serum or plasma alkaline liberty sphatase measurementOrdered By: Matti Camarillo on 08-31-2024 ALP [Catalytic activity/Vol] 69 U/L 35-104 [facility] Serum or plasma calcium deo urement (mass/volume)Ordered By: Matti Camarillo on 08-31-2024 Calcium [Mass/Vol] 9.9 mg/dL 7.6-11.0 [facility] Serum or plasma cholesterol in HDL measurement (mass/volume)Ordered By: Matti Camarillo on 08-31-2024 Cholesterol in HDL [Mass/Vol] 52 mg/dL >40 [place] Comment on above: National Cholesterol Education Program (NCEP) guidelines:<40 mg/dL: Low HDL-cholesterol (major risk factor for CHD)>= 60 mg/dL: High HDL-cholesterol (negative risk factor for CHD)HDL-cholesterol is affected by a number of factors, e.g. smoking, exercise, hormones, sex and age. Serum or plasma cholesterol measurement (mass/volume)Ordered By: Matti Camarillo on 08-31-2024 Cholesterol [Mass/Vol] 222 mg/dL High <201 [facility] Comment on above: Cholesterol level, D esirable <200 mg/dLBorderline high cholesterol 200-239 mg/dLHigh cholesterol >=240 mg/dLRecommendations of the NCEP Adult Treatment Panel for the following risk-cutoff thresholds for the [place] population. Serum or plasma urea nitroge n measurement (mass/volume)Ordered By: Matti Camarillo on 08-31-2024 Urea nitrogen [Mass/Vol] 13 mg/dL 4-19 [place] Sodium levelOrdered By: Kiran Camarillo on 08-31-2024 Sodium [Moles/Vol] 141 mmol/L 133-145 [facility] TSH DL <= 0.005 mIU/L QnOrde red By: Matti Camarillo on 08-31-2024 TSH Qn 1.540 uIU/mL 0.300-4.200 [facility] Thyroid Stim Hormone (TSH)on 08-31-2024 TSH 1.540 uIU/mL Normal 0.300-4.200 [facility] Comment on above: Performed By: #### L 500.4050, L506.1001, L501.9520, L500.4100 ####[place] [address] [place], [address] Total proteinOrdered By: Jacinto Camarillo on 08-31-2024 Protein [Mass/Vol] 7.6 g/dL 5.9-8.4 [facility] Triglycerides measurementOrd ered By: Matti Camarillo on 08-31-2024 Triglyceride [Mass/Vol] 202 mg/dL High <199 [facility] Comment on above: The drugs N-Acetylcy steine and Metamizole may falsely depress this assay. Normal range: <150 mg/dLBorderline High: 150-199 mg/dLHigh: 200-499 mg/dLVery High: >500 mg/dL Vitamin D,25 Hydroxyon 08-31 Vitamin D 25-OH 53.3 ng/mL Normal 30-100 [facility] Comment on above: Result Comment: Gill min D Status Deficiency: <20 ng/mL (50nmol/L) Insufficiency: 20-30 ng/mL (50-75 nmol/L) Sufficiency: 30-100 ng/mL (75-250 nmol/L) Toxicity: >100 ng/mL (>250 nmol/L) Performed By: #### L 500.4050, L506.1001, L501.9520, L500.4100 ####[place] [address] [place], [address] Echo Completeon 07-22-[address] [facility] [address] [place] [address] Echo Complete 07/22/24 1017 MR#: [id number] Acct: [id number] Name: FABRICE MOON Rep #: [id number] : 1945 79 From: Angel Fairchild MD Attending Dr: HERVE BostonC Status: LYNN ARAUZ Ordering Dr: Milka Mckenna NP [employer] HYDRAULICKER-C Date: 07/22/24 Location: [facility] Sex: F C Admitted: Reason For [...] Date Dictated: 07/22/24 1017 Date Transcribed: 07/22/241537 Lyric Writer: Signed Normal [place] Echocardiogram study reportO rdered By: Angel Fairchild on 07-22-2024 Study report [facility] [address] [address] Echo Complete 07/22/24 1017 MR#: [id number] Acct: [id number] Name: FABRICE MOON Rep #:[id number] : 1945 79 From: Angel Haley Attending Dr: Milka Mckenna, [employer] HYDRAULICKER-C Dany tatus: REG CLI Ordering Dr: Milka Mckenna NP [employer] HYDRAULICKER-C Anam e: 07/22/24 Location: [facility] Sex: F C Admitted: Reason For [...] Date Dictated: 07/22/24 1017 Date Transcribed: 07/22/241537 Lyric Writer: Signed [place] Work Phone: Cardiology Visit Reporton Cardiology Visit Report [facility] 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 Normal [place] Absolute lymphocyte countOrd ered By: Micah Díaz on 06-28-2024 Lymphocytes Auto (Unsp spec) [#/Vol] 2.16 10*3/uL 0.83-4.51 [facility] Absolute neutrophil countOrd ered By: Micah Díaz on 06-28-2024 Neutrophils (Bld) [#/Vol] 5.0 10*3/uL 2.0-7.7 [place] Automated lymphocyte count a s percentage of total leukocytesOrdered By: Micah Díaz on 06-28-2024 Lymphocytes/100 WBC Auto (Unsp spec) 27.7 % 19-41 [facility] Basophil percentageOrdered B y: Micah JoeBre on 06-28-2024 Basophils/100 WBC (Bld) 0.6 % 0-1 [facility] CBC W/Diff, Automatedon 06-12 Absolute Lymph 2.16 X10 3/uL Normal 0.83-4.51 [facility] Comment on above: Performed By: #### L 503.6550, L100.0100, L503.6150 ####[place] [address] [place], [address] Absolute Neut 5.0 X10 3/uL Normal 2.0-7.7 [facility] Comment on above: Performed By: #### L 503.6550, L100.0100, L503.6150 ####[place] [address] [place], [address] Basophils/100 WBC (Bld) 0.6 % Normal 0-1 [facility] Comment on above: Performed By: #### L 503.6550, L100.0100, L503.6150 ####[place] [address] [place], [address] Eosinophils/100 WBC (Bld) 1.3 % Normal 0-5 [facility] Comment on above: Performed By: #### L 503.6550, L100.0100, L503.6150 ####[place] [address] [place], [address] Erythrocyte distribution width (RBC) [Ratio] 12.8 % Normal 11.6-14.6 [facility] Comment on above: Performed By: #### L 503.6550, L100.0100, L503.6150 ####[place] [address] [place], [address] Hematocrit (Bld) [Volume fraction] 39.7 % Normal 37-47 [facility] Comment on above: Performed By: #### L 503.6550, L100.0100, L503.6150 ####[place] [address] [place], [address] Hemoglobin (Bld) [Mass/Vol] 13.2 g/dL Normal 12.0-15.0 [facility] Comment on above: Performed By: #### L 503.6550, L100.0100, L503.6150 ####[place] [address] [place], [address] IG% 0.400 Normal 0.0-0.9 [facility] Comment on above: Result Comment: IG% - Immature Granulocytes (promyelocytes, myelocytes and metamyelocytes) > 1% indicates that a LEFT SHIFT is Present. Performed By: #### L 503.6550, L100.0100, L503.6150 ####[place] [address] [place], [address] Lymphocytes/100 WBC (Bld) 27.7 % Normal 19-41 [facility] Comment on above: Performed By: #### L 503.6550, L100.0100, L503.6150 ####[place] [address] [place], [address] MCH (RBC) [Entitic mass] 30.4 pg Normal 27.0-32.0 [facility] Comment on above: Performed By: #### L 503.6550, L100.0100, L503.6150 ####[place] [address] [place], [address] MCHC (RBC) [Mass/Vol] 33.2 g/dL Normal 32-36 [facility] Comment on above: Performed By: #### L 503.6550, L100.0100, L503.6150 ####[place] [address] [place], [address] MCV (RBC) [Entitic vol] 91.5 fL Normal 81-99 [facility] Comment on above: Performed By: #### L 503.6550, L100.0100, L503.6150 ####[place] [address] [place], [address] Monocytes/100 WBC (Bld) 6.1 % Normal 0-10 [facility] Comment on above: Performed By: #### L 503.6550, L100.0100, L503.6150 ####[place] [address] [place], [address] Neutrophils/100 WBC (Bld) 63.9 % Normal 47-70 [facility] Comment on above: Performed By: #### L 503.6550, L100.0100, L503.6150 ####[place] [address] [place], [address] Nucleated RBC (Bld) [#/Vol] 0 10*3/uL Normal 0-5 [facility] Comment on above: Performed By: #### L 503.6550, L100.0100, L503.6150 ####[place] [address] [place], [address] Platelet mean volume (Bld) [Entitic vol] 10.7 fL Normal 6.2-12.0 [facility] Comment on above: Performed By: #### L 503.6550, L100.0100, L503.6150 ####[place] [address] [place], [address] Platelets (Bld) [#/Vol] 217 10*3/uL Normal 150-450 [facility] Comment on above: Performed By: #### L 503.6550, L100.0100, L503.6150 ####[place] [address] [place], [address] RBC (Bld) [#/Vol] 4.34 10*6/uL Normal 4.2-5.4 [facility] Comment on above: Performed By: #### L 503.6550, L100.0100, L503.6150 ####[place] [address] [place], [address] RDW SD 42.5 fl Normal 35.1-43.9 [facility] Comment on above: Performed By: #### L 503.6550, L100.0100, L503.6150 ####[place] [address] [place], [address] WBC (Bld) [#/Vol] 7.8 10*3/uL Normal 4.4-11.0 [facility] Comment on above: Performed By: #### L 503.6550, L100.0100, L503.6150 ####[place] [address] [place], [address] Eosinophil percentageOrdered By: Micah Díaz on 06-28-2024 Eosinophils/100 WBC (Bld) 1.3 % 0-5 [facility] Erythrocyte distribution wid th ratioOrdered By: Micah Díaz on 06-28-2024 Erythrocyte distribution width (RBC) [Ratio] 12.8 % 11.6-14.6 [place] Erythrocyte distribution wid th standard deviationOrdered By: Micah Bre on 06-28-2024 Erythrocyte distribution width (RBC) [Entitic vol] 42.5 fL 35.1-43.9 [facility] Erythrocyte distribution width (RBC) [Ratio] 42.5 fl 35.1-43.9 [place] Ferritinon 06-28-2024 Ferritin [Mass/Vol] 96 ng/mL Normal 22-378 [facility] Comment on above: Performed By: #### L 503.6550, L100.0100, L503.6150 ####[place] [address] [place], [address] Hematocrit Auto (Bld) [Volum e fraction]Ordered By: Micah Díaz on 06-28-2024 Hematocrit (Bld) [Volume fraction] 39.7 % 37-47 [facility] Hemoglobin measurementOrdere d By: Micah Díaz on 06-28-2024 Hemoglobin (Bld) [Mass/Vol] 13.2 g/dL 12.0-15.0 [place] Immature granulocytes/100 WB C Auto (Bld)Ordered By: Micah Díaz on 06-28-2024 Immature granulocytes/100 WBC (Bld) 0.400 % 0.0-0.9 [facility] Comment on above: IG% - Immature Granu locytes (promyelocytes, myelocytes and metamyelocytes) > 1% indicates that a LEFT SHIFT is Present. Ironon 06-28-2024 Iron [Mass/Vol] 81 ug/dL Normal 50-170 [facility] Comment on above: Performed By: #### L 503.6550, L100.0100, L503.6150 ####[place] [address] [place], [address] Iron (Unsp spec) [Mass/Mass] Ordered By: Micah Díaz on 06-28-2024 Iron [Mass/Vol] 81 ug/dL 50-170 [facility] Iron measurement (mass/mass) Ordered By: Micah Díaz on 06-28-2024 Iron (Unsp spec) [Mass/Mass] 81 ug/dL 50-170 [facility] Lymphocytes Auto (Unsp spec) [#/Vol]Ordered By: Micah Díaz on 06-28-2024 Lymphocytes (Bld) [#/Vol] 2.16 10*3/uL 0.83-4.51 [facility] Lymphocytes/100 WBC Auto (Un sp spec)Ordered By: Micah Díaz on 06-28-2024 Lymphocytes/100 WBC (Bld) 27.7 % 19-41 [facility] MCV (mean corpuscular volume ) determinationOrdered By: Micah Díaz on 06-28-2024 MCV (RBC) [Entitic vol] 91.5 fL 81-99 [facility] Mean corpuscular hemoglobin (MCH) determinationOrdered By: Micah Díaz on 06-28-2024 MCH (RBC) [Entitic mass] 30.4 pg 27.0-32.0 [place] Mean corpuscular hemoglobin concentration (MCHC) determinationOrdered By: Micah Díaz on 06-28-2024 MCHC (RBC) [Mass/Vol] 33.2 g/dL 32-36 [facility] Mean platelet volume determi nationOrdered By: Micah Díaz on 06-28-2024 Platelet mean volume (Bld) [Entitic vol] 10.7 fL 6.2-12.0 [place] Monocyte percentageOrdered B y: Micah Díaz on 06-28-2024 Monocytes/100 WBC (Bld) 6.1 % 0-10 [facility] Neutrophil percentageOrdered By: Micah Díaz on 06-28-2024 Neutrophils/100 WBC (Bld) 63.9 % 47-70 [facility] Nucleated red blood cell per centageOrdered By: Micah Díaz on 06-28-2024 Nucleated RBC/100 WBC (Bld) [Ratio] 0 % 0-5 [facility] Platelet countOrdered By: Balbir Díaz on 06-28-2024 Platelets (Bld) [#/Vol] 217 10*3/uL 150-450 [facility] RBC Auto (Bld) [#/Vol]Ordere d By: Micah Díaz on 06-28-2024 RBC (Bld) [#/Vol] 4.34 10*6/uL 4.2-5.4 [facility] Serum or plasma ferritin olivia surement (mass/volume)Ordered By: Micah Bre on 06-28-2024 Ferritin [Mass/Vol] 96 ng/mL 22-378 [facility] White blood cell (WBC) count Ordered By: Micah Díaz on 06-28-2024 WBC (Bld) [#/Vol] 7.8 10*3/uL 4.4-11.0 [facility] Anion gap in Serum or Plasma Ordered By: Christiano Medeiros on 06-17-2024 Anion gap [Moles/Vol] 13 mmol/L 5- [facility] BUN/creatinine ratioOrdered By: Christiano Medeiros on 06-17-2024 Urea nitrogen/Creatinine [Mass ratio] 17.3 mg/mg - [facility] Basic Metabolic Profile (BMP )on 06-17-2024 BUN/CRE 17.3 RATIO Normal - [facility] Comment on above: Performed By: #### L 501.1400, L500.2500 ####[place] [address] [place], [address] Calcium [Mass/Vol] 9.7 mg/dL Normal 7.6-11.0 [facility] Comment on above: Performed By: #### L 501.1400, L500.2500 ####[place] [address] [place], [address] Chloride [Moles/Vol] 102 mmol/L Normal 98-108 [facility] Comment on above: Performed By: #### L 501.1400, L500.2500 ####[place] [address] [place], [address] CO2 [Moles/Vol] 24.8 mmol/L Normal 21.0-32.0 [facility] Comment on above: Performed By: #### L 501.1400, L500.2500 ####[place] [address] [place], [address] Creatinine [Mass/Vol] 0.75 mg/dL Normal 0.70-1.20 [facility] Comment on above: Performed By: #### L 501.1400, L500.2500 ####[place] [address] [place], [address] GAP 13 Normal 5-15 [facility] Comment on above: Performed By: #### L 501.1400, L500.2500 ####[place] [address] [place], [address] GFR/1.73 sq M.predicted among non-blacks MDRD (S/P/Bld) [Vol rate/Area] 80 mL/min/{1.73_m2} Normal >60 [facility] Comment on above: Result Comment: mL/m in/1.73m2 CKD-EPI Creatinine Equation (2020) Performed By: #### L 501.1400, L500.2500 ####[place] [address] [place], [address] Glucose [Mass/Vol] 97 mg/dL Normal 70-99 [facility] Comment on above: Performed By: #### L 501.1400, L500.2500 ####[place] [address] [place], [address] Potassium [Moles/Vol] 4.3 mmol/L Normal 3.3-5.1 [facility] Comment on above: Performed By: #### L 501.1400, L500.2500 ####[place] [address] [place], [address] Sodium [Moles/Vol] 140 mmol/L Normal 133-145 [facility] Comment on above: Performed By: #### L 501.1400, L500.2500 ####[place] [address] [place], [address] Urea nitrogen [Mass/Vol] 13 mg/dL Normal 4-19 [facility] Comment on above: Performed By: #### L 501.1400, L500.2500 ####[place] [address] [place], [address] Carbon dioxide, total [Moles /volume] in Central venous bloodOrdered By: Christiano Medeiros on 06-17-2024 CO2 [Moles/Vol] 24.8 mmol/L 21.0-32.0 [facility] Chloride assayOrdered By: Herman Medeiros on 06-17-2024 Chloride [Moles/Vol] 102 mmol/L 98-108 [facility] GFR/1.73 sq M.predicted robinson g non-blacks MDRD (S/P/Bld) [Vol rate/Area]Ordered By: Christiano Medeiros on 06-17-2024 Estimated GFR (MDRD) Non-Af Amer 80 >60 [place] Comment on above: mL/min/1.73m2 CKD-EP I Creatinine Equation (2020) Glomerular filtration rate ( GFR) estimation/1.73 sq m using serum, plasma, or whole bOrdered By: Christiano Medeiros on 06-17-2024 GFR/1.73 sq M.predicted among non-blacks MDRD (S/P/Bld) [Vol rate/Area] 80 mL/min/{1.73_m2} >60 [place] Comment on above: mL/min/1.73m2 CKD-EP I Creatinine Equation (2020) Potassium (Unsp spec) [Mass/ Vol]Ordered By: Christiano Medeiros on 06-17-2024 Potassium [Moles/Vol] 4.3 mmol/L 3.3-5.1 [facility] Potassium measurement (mass/ volume)Ordered By: Christiano Medeiros on 06-17-2024 Potassium (Unsp spec) [Mass/Vol] 4.3 mmol/L 3.3-5.1 [facility] Serum creatinine measurement (mass/volume)Ordered By: Christiano Medeiros on 06-17-2024 Creatinine [Mass/Vol] 0.75 mg/dL 0.70-1.20 [facility] Serum glucose measurement (m ass/volume)Ordered By: Christiano Medeiros on 06-17-2024 Glucose [Mass/Vol] 97 mg/dL 70-99 [facility] Serum or plasma calcium deo urement (mass/volume)Ordered By: Christiano Medeiros on 06-17-2024 Calcium [Mass/Vol] 9.7 mg/dL 7.6-11.0 [facility] Serum or plasma urea nitroge n measurement (mass/volume)Ordered By: Christiano Medeiros on 06-17-2024 Urea nitrogen [Mass/Vol] 13 mg/dL 4-19 [facility] Serum or plasma uric acid me asurement (mass/volume)Ordered By: Christiano Medeiros on 06-17-2024 Urate [Mass/Vol] 6.6 mg/dL High 2.6-6.0 [facility] Comment on above: The drugs N-Acetylcy steine and Metamizole may falsely depress this assay. Sodium levelOrdered By: Srikanth Medeiros on 06-17-2024 Sodium [Moles/Vol] 140 mmol/L 133-145 [facility] Uric Acidon 06-17-2024 URIC 6.6 mg/dL High 2.6-6.0 [facility] Comment on above: Result Comment: The drugs N-Acetylcysteine and Metamizole may falsely depress this assay. Performed By: #### L 501.1400, L500.2500 ####[facility] [address] [place], [place], [id number] PT D/C Summary (1)on 025 PT D/C Summary (1) [facility] [address] [place] [address] / REHABILITATION SERVICES DISCHARGE SUMMARY MR#: [id number] Acct: [id number] Name: FABRICE MOON Rep #: [id number] : 1945 78 From: Jamal Glover PT, [...] please feel free to call me at [phone]. Thank you for the referral of this patient. Sincerely, Jamal Glover, PT, Cert MDT, OCS Balance/Gait/Functio nal tests Balance/Special Test Scores Oswestry Low Back Score: 29 Improvement % Improvement: 20 07/27/24 0810 CC: Dr. Rene Lomax MD; Dr. Micah Díaz, JLA Signed Normal [facility] KAJAL SCREENING W TOMOon 05-19 KAJAL SCREENING W SYBIL * * *Final Report* * * DATE OF EXAM: May 19 2024 2:22PM WRW 0582 - KAJAL SCREENING W SYBIL / PROCEDURE REASON: multiple diagnoses * * * * Physician Interpretation * * * * RESULT: [place] [address] #[id number] - KAJAL SCREENING W SYBIL HISTORY: 78 [...] Aylin Nicole M.D. Electronically signed on: 05/20/2024 Lyric Writer: RUFINA Transcribe Date/Time: May 19 2024 1:45P Dictated by: AYLIN NICOLE MD This examination was interpreted and the report reviewed and electronically signed by: AYLIN NICOLE MD on May 20 2024 5:03PM EST [id number] Normal [facility] CNOVon 05-18-2024 CNOV Office Visit (OBGYWM) FABRICE MOON Jennifer ([id number]) 1945 F CHT Date Time Provider Department [...] L2 SAB0 IAB0 Ectopic0 Multiple0 Live Births0 Crystallographer History LMP: Hysterectomy Age at Menarche: Age at First : Age at Menopause: Crystallographer History Comments: Sexual Activity: Not Currently; No [...] heart cath PAST SURGICAL HISTORY OF 09/16/2005 [facility] PAST SURGICAL HISTORY OF 10/12/2002 heart cath [...] discussed with the Patient or Patient's Authorized Career Education Teacher. As applicable, any other physician, advance practice provider, medical student, or other health professional student that will be observing or involved in the sensitive examination for educational or training purposes was discussed with the Patient or Authorized Career Education Teacher. The Patient or Authorized Career Education Teacher has agreed to proceed with the sensitive [...] external genitalia normal, normal Bartholin's glands, urethra, [place]'s glands, no vulvar lesions, good vaginal support, [...] itching VALDECO (more content not included)... Normal [facility] Inital Evaluation (1) - PTon 05-12-2024 Inital Evaluation (1) - PT [facility] [address] [place] [address] / REHABILITATION SERVICES INITIAL EVALUATION MR#: [id number] Acct: [id number] Name: FABRICE MOON Rep #: [id number] : 1945 78 From: Jamal Glover PT, [...] to be FAXED BACK to us at [phone] for Medicare purposes. For Medicare only, by signing this I certify the plan of care. Please let me know if there are questions or concerns regarding this plan of care. Physician Signature: D ate: 05/12/24 1556 CC: Dr. Rene Lomax MD; Dr. Micah Díaz DO CAROLA Signed Normal [facility] [id number] DOrdered By: Raúl Camarillo on 04-27-2024 Vitamin D 25-Hydroxy 43.8 ng/mL [facility] Comment on above: Vitamin D 25(OH) Sta tus Range Deficiency <20 ng/mL (50nmol/L) Insufficiency 20 - 30 ng/mL (50 - 75 nmol/L) Sufficiency 30 - 100 ng/mL (75 - 250 nmol/L) Toxicity >100 ng/mL (>250 nmol/L) Albumin to globulin ratioOrd ered By: Matti Camarillo on 04-27-2024 Albumin/Globulin [Mass ratio] 1.0 {ratio} 0.9-2.4 [facility] Bilirubin, totalOrdered By: Matti Camarillo on 04-27-2024 Bilirubin [Mass/Vol] 0.60 mg/dL 0.20-1.00 [facility] Comment on above: For patients on eltr ombopag therapy, use of Dimension [place] TBIL is not recommended. Blood urea nitrogen (BUN)/cr eatinine ratioOrdered By: Matti Camarillo on 04-27-2024 Urea nitrogen/Creatinine [Mass ratio] 13.9 mg/mg 10-20 [facility] Carbon dioxide measurementOr dered By: Matti Camarillo on 04-27-2024 CO2 [Moles/Vol] 27.0 mmol/L 21.0-32.0 [facility] Chloride measurementOrdered By: Matti Camarillo on 04-27-2024 Chloride [Moles/Vol] 105 mmol/L 98-107 [facility] Comprehensive Metabolic Prof ilon 04-27-2024 Albumin [Mass/Vol] 3.8 g/dL Normal 3.2-5.0 [facility] Comment on above: Performed By: #### L 501.9520, L506.1000, L500.4050 #### [facility] [address] [place], [address] Albumin/Globulin [Mass ratio] 1.0 {ratio} Normal 0.9-2.4 [facility] Comment on above: Performed By: #### L 501.9520, L506.1000, L500.4050 #### [facility] [address] [place], [address] ALK P 80 U/L Normal 45-117 [facility] Comment on above: Performed By: #### L 501.9520, L506.1000, L500.4050 #### [facility] [address] [place], [address] ALT [Catalytic activity/Vol] 30 U/L Normal 13-56 [facility] Comment on above: Performed By: #### L 501.9520, L506.1000, L500.4050 #### [facility] [address] [place], [address] AST [Catalytic activity/Vol] 25 U/L Normal 15-37 [facility] Comment on above: Performed By: #### L 501.9520, L506.1000, L500.4050 #### [facility] [address] [place], [address] Bilirubin [Mass/Vol] 0.60 mg/dL Normal 0.20-1.00 [facility] Comment on above: Result Comment: For patients on eltrombopag therapy, use of Dimension [place] TBIL is not recommended. Performed By: #### L 501.9520, L506.1000, L500.4050 #### [facility] [address] [place], [address] BUN/CRE 13.9 RATIO Normal 10-20 [facility] Comment on above: Performed By: #### L 501.9520, L506.1000, L500.4050 #### [facility] [address] [place], [address] CA,Total 9.5 mg/dL Normal 8.5-10.1 [facility] Comment on above: Performed By: #### L 501.9520, L506.1000, L500.4050 #### [facility] [address] [place], [address] Chloride [Moles/Vol] 105 mmol/L Normal 98-107 [facility] Comment on above: Performed By: #### L 501.9520, L506.1000, L500.4050 #### [facility] [address] [place], [address] CO2 [Moles/Vol] 27.0 mmol/L Normal 21.0-32.0 [facility] Comment on above: Performed By: #### L 501.9520, L506.1000, L500.4050 #### [facility] [address] [place], [address] Creatinine [Mass/Vol] 0.72 mg/dL Normal 0.55-1.02 [facility] Comment on above: Result Comment: The validity of the calculated GFR GFRAA in patients over 70 years has not been determined. Clinical correlation is essential. Performed By: #### L 501.9520, L506.1000, L500.4050 #### [facility] [address] [place], [address] EST GFR - AA 100 mL/min Normal >60 [facility] Comment on above: Result Comment: Afri can Palestinian GFR Calc Performed By: #### L 501.9520, L506.1000, L500.4050 #### [facility] [address] [place], [address] GAP 7 Normal 5-15 [facility] Comment on above: Performed By: #### L 501.9520, L506.1000, L500.4050 #### [facility] [address] [place], [address] GFR/1.73 sq M.predicted among non-blacks MDRD (S/P/Bld) [Vol rate/Area] 83 mL/min/{1.73_m2} Normal >60 [facility] Comment on above: Result Comment: Non- GFR Calc Performed By: #### L 501.9520, L506.1000, L500.4050 #### [facility] [address] [place], [address] Globulin (S) [Mass/Vol] 3.9 g/dL Normal 2.2-4.2 [facility] Comment on above: Performed By: #### L 501.9520, L506.1000, L500.4050 #### [facility] [address] [place], [address] Glucose [Mass/Vol] 95 mg/dL Normal 74-106 [facility] Comment on above: Performed By: #### L 501.9520, L506.1000, L500.4050 #### [facility] [address] [place], [address] Potassium [Moles/Vol] 4.3 mmol/L Normal 3.5-5.1 [facility] Comment on above: Performed By: #### L 501.9520, L506.1000, L500.4050 #### [facility] [address] [place], [address] Sodium [Moles/Vol] 139 mmol/L Normal 136-145 [facility] Comment on above: Performed By: #### L 501.9520, L506.1000, L500.4050 #### [facility] [address] [place], [address] T PROT 7.7 g/dL Normal 6.4-8.2 [facility] Comment on above: Performed By: #### L 501.9520, L506.1000, L500.4050 #### [facility] [address] [place], [address] Urea nitrogen [Mass/Vol] 10 mg/dL Normal 7-18 [facility] Comment on above: Performed By: #### L 501.9520, L506.1000, L500.4050 #### [facility] [address] [place], [address] Estimated glomerular filtrat ion rate (GFR) AmericanOrdered By: Matti Camarillo on 04-27-2024 Estimated GFR (MDRD) Amer 100 mL/min >60 [facility] Comment on above: GFR Calc Glomerular filtration rate ( GFR) estimationOrdered By: Matti Camarillo on 04-27-2024 Estimated GFR (MDRD) Non-Af Amer 83 mL/min >60 [facility] Comment on above: Non- GFR Calc Glucose measurementOrdered B y: Matti Camarillo on 04-27-2024 Glucose [Mass/Vol] 95 mg/dL 74-106 [facility] Laboratory - Chemistry and C hemistry - challengeOrdered By: Matti Camarillo on 04-27-2024 AST [Catalytic activity/Vol] 25 U/L 15-37 [facility] Potassium measurementOrdered By: Matti Camarillo on 04-27-2024 Potassium [Moles/Vol] 4.3 mmol/L 3.5-5.1 [facility] Serum anion gap measurementO rdered By: Matti Camarillo on 04-27-2024 Anion gap [Moles/Vol] 7 mmol/L 5-15 [facility] Serum globulin measurementOr dered By: Matti Camarillo on 04-27-2024 Globulin (S) [Mass/Vol] 3.9 g/dL 2.2-4.2 [facility] Serum or plasma alanine oliveira otransferase (ALT) measurementOrdered By: Matti Camarillo on 04-27-2024 ALT [Catalytic activity/Vol] 30 U/L 13-56 [facility] Serum or plasma albumin deo urement (mass/volume)Ordered By: Matti Camarillo on 04-27-2024 Albumin [Mass/Vol] 3.8 g/dL 3.2-5.0 [facility] Serum or plasma alkaline liberty sphatase measurementOrdered By: Matti Camarillo on 04-27-2024 ALP [Catalytic activity/Vol] 80 U/L 45-117 [facility] Serum or plasma calcium deo urement (mass/volume)Ordered By: Matti Camarillo on 04-27-2024 Calcium [Mass/Vol] 9.5 mg/dL 8.5-10.1 [facility] Serum or plasma creatinine m easurement (mass/volume)Ordered By: Matti Camarillo on 04-27-2024 Creatinine [Mass/Vol] 0.72 mg/dL 0.55-1.02 [facility] Comment on above: The validity of the calculated GFR & GFRAA in patients over 70 years has not been determined. Clinical correlation is essential. Serum or plasma urea nitroge n measurement (mass/volume)Ordered By: Matti Camarillo on 04-27-2024 Urea nitrogen [Mass/Vol] 10 mg/dL 7-18 [facility] Sodium levelOrdered By: Kiran Camarillo on 04-27-2024 Sodium [Moles/Vol] 139 mmol/L 136-145 [facility] TSH QnOrdered By: Matti baker on 04-27-2024 Thyroid Stimulating Hormone (TSH) 1.640 uIU/mL 0.358-3.740 [facility] Thyroid Stim Hormone (TSH)on 04-27-2024 TSH 1.640 uIU/mL Normal 0.358-3.740 [facility] Comment on above: Performed By: #### L 501.9520, L506.1000, L500.4050 ####[facility] [address] [place], [place], [address] Total proteinOrdered By: Jacinto Camarillo on 04-27-2024 Protein [Mass/Vol] 7.7 g/dL 6.4-8.2 [facility] Vitamin D,25 Hydroxyon 04-27 Vitamin D 25-OH 43.8 ng/mL Normal [facility] Comment on above: Result Comment: Gill min D 25(OH) Status Range Deficiency <20 ng/mL (50nmol/L) Insufficiency 20 - 30 ng/mL (50 - 75 nmol/L) Sufficiency 30 - 100 ng/mL (75 - 250 nmol/L) Toxicity >100 ng/mL (>250 nmol/L) Performed By: #### L 501.9520, L506.1000, L500.4050 #### [facility] [address] [place], [place], [address] [facility]) FABR[facility] ([id number]) 1945 F T Date Time Provider Department [...] Pelvic/breast exam please 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 Alonzo Patino Tara, RN 03/29/2024 [...] mammogram for malignant neoplasm of breast [Z12.31] Order(s):[facility] SCREENING [7521881] Order #: [id number] FUTURE Prescriptions as of 03/29/2024 - levothyroxine [...] NEC/NOS [E78.5] 07/22/2003 MYALGIA AND MYOSITIS NOS [UUT3591] 07/22/2003 LUMBOSACRAL NEURITIS NOS [ESH2619] 07/27/2003 POSTLAMINECT SYND-LUMBAR [M96.1] 07/27/2003 ABDOMINAL PAIN [...] Status:Closed by BHUMI BEAVERS on 03/29/24 Normal [facility] Basophil percentageOrdered B y: ELZBIETA KNOX on 07-01-2023 Bilirubin [Mass/Vol] 0.60 mg/dL 0.20-1.00 [facility] Comment on above: For patients on eltr ombopag therapy, use of Dimension [place] TBIL is not recommended. Chloride [Moles/Vol] 106 mmol/L 98-107 [facility] Glucose [Mass/Vol] 98 mg/dL 74-106 [facility] Potassium [Moles/Vol] 4.1 mmol/L 3.5-5.1 [facility] Protein [Mass/Vol] 7.7 g/dL 6.4-8.2 [facility] Sodium [Moles/Vol] 142 mmol/L 136-145 [facility] Laboratory - Chemistry and C hemistry - challengeOrdered By: ELZBIETA KNOX on 07-01-2023 Albumin/Globulin [Mass ratio] 1.0 {ratio} 0.9-2.4 [facility] ALP [Catalytic activity/Vol] 70 U/L 45-117 [facility] ALT [Catalytic activity/Vol] 30 U/L 13-56 [facility] CO2 [Moles/Vol] 29.0 mmol/L 21.0-32.0 [facility] Globulin (S) [Mass/Vol] 3.9 g/dL 2.2-4.2 [facility] Urea nitrogen/Creatinine [Mass ratio] 17.9 mg/mg 10-20 [facility] No Panel InformationOrdered By: ELZBIETA KNOX on 07-01-2023 Estimated GFR (MDRD) Amer 99 mL/min >60 [facility] Comment on above: GFR Calc Estimated GFR (MDRD) Non-Af Amer 82 mL/min >60 [facility] Comment on above: Non- GFR Calc Serum or plasma calcium deo urement (mass/volume)Ordered By: ELZBIETA KNOX on 07-01-2023 Calcium [Mass/Vol] 9.1 mg/dL 8.5-10.1 [facility] Serum or plasma creatinine m easurement (mass/volume)Ordered By: ELZBIETA KNOX on 07-01-2023 Creatinine [Mass/Vol] 0.73 mg/dL 0.55-1.02 [facility] Comment on above: The validity of the calculated GFR & GFRAA in patients over 70 years has not been determined. Clinical correlation is essential. Serum or plasma thyroid stim ulating hormone (TSH) measurement (units/volume)Ordered By: ELZBIETA KNOX on 07-01-2023 TSH Qn 1.08 uIU/mL 0.358-3.74 [facility] Serum or plasma urea nitroge n measurement (mass/volume)Ordered By: ELZBIETA KNOX on 07-01-2023 Urea nitrogen [Mass/Vol] 13 mg/dL 7-18 [facility] Thin prep Papanicolaou smear with manual screeningOrdered By: ELZBIETA KNOX on 07-01-2023 Thin prep Papanicolaou smear with manual screening 3.8 g/dL 3.2-5.0 [facility] Thin prep Papanicolaou smear with manual screening 18 U/L 15-37 [facility] Thin prep Papanicolaou smear with manual screening 7 5-15 [facility] XR Wrist - left PA and Later al and Obliqueon 04-21-2023 IMPRESSION: Findings are suggestive of degenerative changes in the first carpometacarpal joint. Lyric Writer: IVANA Transcribe Date/Time: Apr 21 2023 8:58A Dictated by : HIGINIO VERDUZCO MD This examination was interpreted and the report reviewed and electronically signed by: HIGINIO VERDUZCO MD on Apr 21 2023 9:04AM [facility] DIVISION OF RADIOLOGY * * [...] soft tissue swelling. DIVISION OF RADIOLOGY Provider, [facility] [place] - 04/21/2023 * * *Final Report* * [...] degenerative changes in the first carpometacarpal joint. Lyric Writer: IVANA Transcribe Date/Time: Apr 21 2023 8:58A Dictated by : HIGINIO VERDUZCO MD This examination was interpreted and the report reviewed and electronically signed by: HIGINIO VERDUZCO MD on Apr 21 2023 9:04AM EST [facility] Radiology Study observation (narrative) Kathy haley [facility] XR Wrist - left PA and Later al and ObliqueOrdered By: Ccf Provider on 04-21-2023 [facility] MG Breast Screeningon 2022 IMPRESSION: BENIGN FINDING There is no mammographic evidence of malignancy. A 1 year screening mammogram is recommended. Apolonia Wilks M.D., mc/augustine:04/04/2023 09:25:02 Dental Office Receptionist(s): RT Iggy(R)(M), [facility] letter sent: Normal over 40 Mammogram BI-RADS: [...] Health, Family Medicine, and Medical/Surgical Oncology, the [facility] has carefully reviewed the data [...] their providers when to stop screening mammograms. Lyric Writer: Augustine Transcribe Date/Time: Apr 03 2023 12:41P Dictated by: APOLONIA WILKS MD This examination was interpreted and the report reviewed and electronically signed by: APOLONIA WILKS MD on Apr 04 2023 9:25AM EST DIVISION OF RADIOLOGY * * *Final Report* * * DATE OF EXAM: Apr 03 2023 1:30PM [facility] 0581 - KAJAL SCREENING / PROCEDURE REASON: Encounter for screening mammogram for malignant neoplasm of breast * * * * Physician Interpretation * * * * RESULT: #[id number] - KAJAL SCREENING BILATERAL DIGITAL SCREENING MAMMOGRAM [...] made to exam dated: 03/25/2022 mammogram - [facility]. There are scattered areas of fibroglandular density. There are benign vascular calcifications in both breasts. No significant masses, calcifications, or other findings are seen in either breast. There has been no significant interval change. DIVISION OF RADIOLOGY Provider, [facility] [place] - 04/04/2023 * * *Final Report* * * DATE OF EXAM: Apr 03 2023 1:30PM [facility] 0581 - [facility] SCREENING / PROCEDURE REASON: Encounter for screening mammogram for malignant neoplasm of breast * * * * Physician Interpretation * * * * RESULT: #[id number] - KAJAL SCREENING BILATERAL DIGITAL SCREENING MAMMOGRAM [...] made to exam dated: 03/25/2022 mammogram - [facility]. There are scattered areas of fibroglandular density. There are benign vascular calcifications in both breasts. No significant masses, calcifications, or other findings are seen in either breast. There has been no significant interval change. IMPRESSION IMPRESSION: BENIGN FINDING There is no mammographic evidence of malignancy. A 1 year screening mammogram is recommended. Apolonia Wilks M.D., mc/augustine:04/04/2023 09:25:02 Dental Office Receptionist(s): RT Iggy(Alicia)(M), [facility] letter sent: Normal over 40 Mammogram BI-RADS: [...] Health, Family Medicine, and Medical/Surgical Oncology, the [facility] has carefully reviewed the data [...] their providers when to stop screening mammograms. Lyric Writer: Augustine Transcribe Date/Time: Apr 03 2023 12:41P Dictated by: APOLONIA WILKS MD This examination was interpreted and the report reviewed and electronically signed by: APOLONIA WILKS MD on Apr 04 2023 9:25AM EST [facility] MG Breast ScreeningOrdered B y: Ccf Provider on 04-04-2023 [facility] MG Breast Screeningon 2022 [facility] Basophil percentageOrdered B y: Matti Camarillo on 02-28-2023 Bilirubin [Mass/Vol] 0.50 mg/dL 0.20-1.00 [facility] Comment on above: For patients on eltr ombopag therapy, use of Dimension [place] TBIL is not recommended. Chloride [Moles/Vol] 103 mmol/L 98-107 [facility] Glucose [Mass/Vol] 99 mg/dL 74-106 [facility] Potassium [Moles/Vol] 4.3 mmol/L 3.5-5.1 [facility] Protein [Mass/Vol] 7.5 g/dL 6.4-8.2 [facility] Sodium [Moles/Vol] 138 mmol/L 136-145 [facility] Laboratory - Chemistry and C hemistry - challengeOrdered By: Matti Camarillo on 02-28-2023 ALP [Catalytic activity/Vol] 65 U/L 45-117 [facility] ALT [Catalytic activity/Vol] 27 U/L 13-56 [facility] CO2 [Moles/Vol] 30.0 mmol/L 21.0-32.0 [facility] Globulin (S) [Mass/Vol] 3.7 g/dL 2.2-4.2 [facility] Urea nitrogen/Creatinine [Mass ratio] 17.7 mg/mg 10-20 [facility] No Panel InformationOrdered By: Matti Camarillo on 02-28-2023 Estimated GFR (MDRD) Amer 83 mL/min >60 [facility] Comment on above: GFR Calc Estimated GFR (MDRD) Non-Af Amer 69 mL/min >60 [facility] Comment on above: Non- GFR Calc Thyroid Stimulating Hormone (TSH) 2.64 uIU/mL 0.358-3.74 [facility] Serum or plasma albumin deo urement (mass/volume)Ordered By: Matti Camarillo on 02-28-2023 Albumin [Mass/Vol] 3.8 g/dL 3.2-5.0 [facility] Serum or plasma albumin/glob ulin mass ratioOrdered By: Mattiandrew Camarillo on 02-28-2023 Albumin/Globulin [Mass ratio] 1.0 {ratio} 0.9-2.4 [facility] Serum or plasma calcium deo urement (mass/volume)Ordered By: Matti Camarillo on 02-28-2023 Calcium [Mass/Vol] 9.2 mg/dL 8.5-10.1 [facility] Serum or plasma creatinine m easurement (mass/volume)Ordered By: Matti Camarillo on 02-28-2023 Creatinine [Mass/Vol] 0.85 mg/dL 0.55-1.02 [facility] Comment on above: The validity of the calculated GFR & GFRAA in patients over 70 years has not been determined. Clinical correlation is essential. Serum or plasma urea nitroge n measurement (mass/volume)Ordered By: Matti Camarillo on 02-28-2023 Urea nitrogen [Mass/Vol] 15 mg/dL 7-18 [facility] Thin prep Papanicolaou smear with manual screeningOrdered By: Matti Camarillo on 02-28-2023 Thin prep Papanicolaou smear with manual screening 18 U/L 15-37 [facility] Thin prep Papanicolaou smear with manual screening 5 5-15 [facility] Absolute lymphocyte countOrd ered By: Ileana Beltrán on 12-23-2022 Lymphocytes Auto (Unsp spec) [#/Vol] 3.12 10*3/uL 0.83-4.51 [facility] Basophil percentageOrdered B y: Ileana Beltrán on 12-23-2022 Basophils/100 WBC (Bld) 0.8 % 0-1 [facility] Chloride [Moles/Vol] 105 mmol/L 98-107 [facility] Eosinophils/100 WBC (Bld) 1.7 % 0-5 [facility] Glucose [Mass/Vol] 91 mg/dL 74-106 [facility] Neutrophils (Bld) [#/Vol] 3.9 10*3/uL 2.0-7.7 [facility] Neutrophils/100 WBC (Bld) 49.8 % 47-70 [facility] Potassium [Moles/Vol] 4.6 mmol/L 3.5-5.1 [facility] Sodium [Moles/Vol] 139 mmol/L 136-145 [facility] WBC (Bld) [#/Vol] 7.8 10*3/uL 4.4-11.0 [facility] Blood erythrocytes count (nu mber/volume)Ordered By: Ileana Beltrán on 12-23-2022 RBC (Bld) [#/Vol] 4.55 10*6/uL 4.2-5.4 [facility] Blood hemoglobin measurement (mass/volume)Ordered By: Ileana Beltrán on 12-23-2022 Hemoglobin (Bld) [Mass/Vol] 14.0 g/dL 12.0-15.0 [facility] Blood lymphocytes/100 leukoc ytesOrdered By: Ileana Beltrán on 12-23-2022 Lymphocytes/100 WBC (Bld) 40.1 % 19-41 [place] Blood monocytes/100 leukocyt esOrdered By: Ileana Beltrán on 12-23-2022 Monocytes/100 WBC (Bld) 7.2 % 0-10 [facility] Blood platelet mean volumeOr dered By: Ileana Beltrán on 12-23-2022 Platelet mean volume (Bld) [Entitic vol] 10.8 fL 6.2-12.0 [place] Determination of erythrocyte mean corpuscular volume (MCV)Ordered By: Ileana Beltrán on 12-23-2022 MCV (RBC) [Entitic vol] 95.4 fL 81-99 [facility] Hematocrit Auto (Bld) [Volum e fraction]Ordered By: Ileana Beltrán on 12-23-2022 Hematocrit (Bld) [Volume fraction] 43.4 % 37-47 [place] [facility] - Chemistry and C hemistry - challengeOrdered By: Ileana Beltrán on 12-23-2022 CO2 [Moles/Vol] 28.0 mmol/L 21.0-32.0 [place] Urea nitrogen/Creatinine [Mass ratio] 15.6 mg/mg 10-20 [place] [facility] - Hematology and Cell countsOrdered By: Ileana Beltrán on 12-23-2022 Erythrocyte distribution width (RBC) [Entitic vol] 45.0 fL 35.1-43.9 [place] Erythrocyte distribution width (RBC) [Ratio] 12.9 % 11.6-14.6 [place] Immature granulocytes/100 WBC (Bld) 0.400 % 0.0-0.9 [place] Comment on above: IG% - Immature Granu locytes (promyelocytes, myelocytes and metamyelocytes) > 1% indicates that a LEFT SHIFT is Present. MCH (RBC) [Entitic mass] 30.8 pg 27.0-32.0 [place] Nucleated RBC/100 WBC (Bld) [Ratio] 0 % 0-5 [place] MCHC Auto (RBC) [Mass/Vol]Or dered By: Ileana Beltrán on 12-23-2022 MCHC (RBC) [Mass/Vol] 32.3 g/dL 32-36 [facility] No Panel InformationOrdered By: Ileana Beltrán on 12-23-2022 Estimated GFR (MDRD) Amer 85 mL/min >60 [place] Comment on above: GFR Calc Estimated GFR (MDRD) Non-Af Amer 70 mL/min >60 [place] Comment on above: Non- GFR Calc No Panel InformationOrdered By: ELZBIETASHYAM KNOX on 12-23-2022 Thyroid Stimulating Hormone (TSH) 5.94 uIU/mL 0.358-3.74 [place] Platelets bldOrdered By: Neto niels Leigh Ann on 12-23-2022 Platelets (Bld) [#/Vol] 219 10*3/uL 150-450 [place] Serum or plasma calcium deo urement (mass/volume)Ordered By: Ileana Beltrán on 12-23-2022 Calcium [Mass/Vol] 9.3 mg/dL 8.5-10.1 [facility] Serum or plasma creatinine m easurement (mass/volume)Ordered By: Ileana Beltrán on 12-23-2022 Creatinine [Mass/Vol] 0.84 mg/dL 0.55-1.02 [facility] Comment on above: The validity of the calculated GFR & GFRAA in patients over 70 years has not been determined. Clinical correlation is essential. Serum or plasma urea nitroge n measurement (mass/volume)Ordered By: Ileana Beltrán on 12-23-2022 Urea nitrogen [Mass/Vol] 13 mg/dL 7-18 [place] Thin prep Papanicolaou smear with manual screeningOrdered By: Ileana Beltrán on 12-23-2022 Thin prep Papanicolaou smear with manual screening 6 5-15 [place] Basophil percentageOrdered B y: Ileana Beltrán on 10-30-2022 Bilirubin [Mass/Vol] 0.60 mg/dL 0.20-1.00 [facility] Comment on above: For patients on eltr ombopag therapy, use of Dimension [place] TBIL is not recommended. Chloride [Moles/Vol] 107 mmol/L 98-107 [facility] Cholesterol [Mass/Vol] 176 mg/dL <200 [facility] Comment on above: <200 mg/dL Desirable 200-240 mg/dL Borderline >240 mg/dL High Risk Glucose [Mass/Vol] 96 mg/dL 74-106 [facility] Potassium [Moles/Vol] 4.4 mmol/L 3.5-5.1 [facility] Protein [Mass/Vol] 7.0 g/dL 6.4-8.2 [facility] Sodium [Moles/Vol] 140 mmol/L 136-145 [facility] Triglyceride [Mass/Vol] 186 mg/dL <199 [facility] Comment on above: The drugs N-Acetylcy steine and Metamizole may falsely depress this assay.Serum Triglycerides Reference Interval Normal <150 mg/dL Borderline high 150 - 199 mg/dL High 200 - 499 mg/dL Very High > or = 500 mg/dL WBC (Bld) [#/Vol] 6.2 10*3/uL 4.4-11.0 [facility] Blood erythrocytes count (nu mber/volume)Ordered By: Ileana Beltrán on 10-30-2022 RBC (Bld) [#/Vol] 4.23 10*6/uL 4.2-5.4 [facility] Blood hemoglobin measurement (mass/volume)Ordered By: Ileana Beltrán on 10-30-2022 Hemoglobin (Bld) [Mass/Vol] 13.2 g/dL 12.0-15.0 [place] Blood platelet mean volumeOr dered By: Ileana Beltrán on 10-30-2022 Platelet mean volume (Bld) [Entitic vol] 10.8 fL 6.2-12.0 [place] Determination of erythrocyte mean corpuscular volume (MCV)Ordered By: Ileana Beltrán on 10-30-2022 MCV (RBC) [Entitic vol] 95.5 fL 81-99 [facility] Hematocrit Auto (Bld) [Volum e fraction]Ordered By: Ileana Beltrán on 10-30-2022 Hematocrit (Bld) [Volume fraction] 40.4 % 37-47 [place] [facility] - Chemistry and C hemistry - challengeOrdered By: Ileana Beltrán on 10-30-2022 ALP [Catalytic activity/Vol] 67 U/L 45-117 [place] ALT [Catalytic activity/Vol] 29 U/L 13-56 [place] CO2 [Moles/Vol] 27.0 mmol/L 21.0-32.0 [place] Globulin (S) [Mass/Vol] 3.6 g/dL 2.2-4.2 [facility] Urea nitrogen/Creatinine [Mass ratio] 10.9 mg/mg 10-20 [place] [facility] - Hematology and Cell countsOrdered By: Ileana Beltrán on 10-30-2022 Erythrocyte distribution width (RBC) [Entitic vol] 44.5 fL 35.1-43.9 [place] Erythrocyte distribution width (RBC) [Ratio] 12.9 % 11.6-14.6 [place] MCH (RBC) [Entitic mass] 31.2 pg 27.0-32.0 [place] MCHC Auto (RBC) [Mass/Vol]Or dered By: Ileana Beltrán on 10-30-2022 MCHC (RBC) [Mass/Vol] 32.7 g/dL 32-36 [facility] No Panel InformationOrdered By: Ileana Beltrán on 10-30-2022 Estimated GFR (MDRD) Amer 98 mL/min >60 [place] Comment on above: GFR Calc Estimated GFR (MDRD) Non-Af Amer 81 mL/min >60 [place] Comment on above: Non- GFR Calc Thyroid Stimulating Hormone (TSH) 0.14 uIU/mL 0.358-3.74 [place] Platelets bldOrdered By: Neto Beltrán on 10-30-2022 Platelets (Bld) [#/Vol] 216 10*3/uL 150-450 [place] Serum or plasma albumin deo urement (mass/volume)Ordered By: Ileana Beltrán on 10-30-2022 Albumin [Mass/Vol] 3.4 g/dL 3.2-5.0 [facility] Serum or plasma albumin/glob ulin mass ratioOrdered By: Ileana Beltrán on 10-30-2022 Albumin/Globulin [Mass ratio] 0.9 {ratio} 0.9-2.4 [place] Serum or plasma calcium deo urement (mass/volume)Ordered By: Ileana Beltrán on 10-30-2022 Calcium [Mass/Vol] 8.9 mg/dL 8.5-10.1 [facility] Serum or plasma cholesterol in HDL measurement (mass/volume)Ordered By: Ileana Beltrán on 10-30-2022 Cholesterol in HDL [Mass/Vol] 46 mg/dL >40 [place] Comment on above: The drugs N-Acetylcy steine and Metamizole may falsely depress this assay. Reference Range HDL <40 mg/dL Low HDL Cholesterol HDL >or= 60 mg/dL High HDL Cholesterol Serum or plasma cholesterol in VLDL measurement (mass/volume)Ordered By: Ileana Beltrán on 10-30-2022 Cholesterol in VLDL [Mass/Vol] 37 mg/dL 5-40 [place] Serum or plasma creatinine m easurement (mass/volume)Ordered By: Ileana Beltrán on 10-30-2022 Creatinine [Mass/Vol] 0.74 mg/dL 0.55-1.02 [facility] Comment on above: The validity of the calculated GFR & GFRAA in patients over 70 years has not been determined. Clinical correlation is essential. Serum or plasma low density lipoprotein (LDL) cholesterol measurement (mass/volume)Ordered By: Ileana Beltrán on 10-30-2022 Cholesterol in LDL [Mass/Vol] 93 mg/dL 0-130 [place] Serum or plasma urea nitroge n measurement (mass/volume)Ordered By: Ileana Beltrán on 10-30-2022 Urea nitrogen [Mass/Vol] 8 mg/dL 7-18 [place] Thin prep Papanicolaou smear with manual screeningOrdered By: Ileana Beltrán on 10-30-2022 Thin prep Papanicolaou smear with manual screening 20 U/L 15-37 [place] Thin prep Papanicolaou smear with manual screening 6 5-15 [place] Basophil percentageOrdered B y: ELZBIETA ABILIO on 04-24-2022 Bilirubin [Mass/Vol] 0.50 mg/dL 0.20-1.00 [facility] Comment on above: For patients on eltr ombopag therapy, use of Dimension [place] TBIL is not recommended. Chloride [Moles/Vol] 105 mmol/L 98-107 [facility] Cholesterol [Mass/Vol] 223 mg/dL <200 [facility] Comment on above: <200 mg/dL Desirable 200-240 mg/dL Borderline >240 mg/dL High Risk Glucose [Mass/Vol] 97 mg/dL 74-106 [facility] Potassium [Moles/Vol] 3.9 mmol/L 3.5-5.1 [facility] Protein [Mass/Vol] 7.4 g/dL 6.4-8.2 [facility] Sodium [Moles/Vol] 140 mmol/L 136-145 [facility] Triglyceride [Mass/Vol] 240 mg/dL <199 [facility] Comment on above: The drugs N-Acetylcy steine and Metamizole may falsely depress this assay.Serum Triglycerides Reference Interval Normal <150 mg/dL Borderline high 150 - 199 mg/dL High 200 - 499 mg/dL Very High > or = 500 mg/dL Laboratory - Chemistry and C hemistry - challengeOrdered By: ELZBIETA KNOX on 04-24-2022 ALP [Catalytic activity/Vol] 70 U/L 45-117 [place] ALT [Catalytic activity/Vol] 31 U/L 13-56 [place] CO2 [Moles/Vol] 26.0 mmol/L 21.0-32.0 [place] Globulin (S) [Mass/Vol] 3.7 g/dL 2.2-4.2 [facility] Urea nitrogen/Creatinine [Mass ratio] 15.7 mg/mg 10-20 [place] No Panel InformationOrdered By: ELZBIETA KNOX on 04-24-2022 Estimated GFR (MDRD) Amer 116 mL/min >60 [place] Comment on above: GFR Calc Estimated GFR (MDRD) Non-Af Amer 96 mL/min >60 [place] Comment on above: Non- GFR Calc Thyroid Stimulating Hormone (TSH) 0.50 uIU/mL 0.358-3.74 [place] Vitamin D 25-Hydroxy 58.6 ng/mL [facility] Comment on above: Vitamin D 25(OH) Sta tus Range Deficiency <20 ng/mL (50nmol/L) Insufficiency 20 - 30 ng/mL (50 - 75 nmol/L) Sufficiency 30 - 100 ng/mL (75 - 250 nmol/L) Toxicity >100 ng/mL (>250 nmol/L) Serum or plasma albumin deo urement (mass/volume)Ordered By: ELZBIETA KONX on 04-24-2022 Albumin [Mass/Vol] 3.7 g/dL 3.2-5.0 [facility] Serum or plasma albumin/glob ulin mass ratioOrdered By: ELZBIETA KNOX on 04-24-2022 Albumin/Globulin [Mass ratio] 1.0 {ratio} 0.9-2.4 [place] Serum or plasma calcium deo urement (mass/volume)Ordered By: ELZBIETA KNOX on 04-24-2022 Calcium [Mass/Vol] 9.0 mg/dL 8.5-10.1 [facility] Serum or plasma cholesterol in HDL measurement (mass/volume)Ordered By: ELZBIETA KNOX on 04-24-2022 Cholesterol in HDL [Mass/Vol] 50 mg/dL >40 [place] Comment on above: The drugs N-Acetylcy steine and Metamizole may falsely depress this assay. Reference Range HDL <40 mg/dL Low HDL Cholesterol HDL >or= 60 mg/dL High HDL Cholesterol Serum or plasma cholesterol in VLDL measurement (mass/volume)Ordered By: ELZBIETA KNOX on 04-24-2022 Cholesterol in VLDL [Mass/Vol] 48 mg/dL 5-40 [place] Serum or plasma creatinine m easurement (mass/volume)Ordered By: ELZBIETA KNOX on 04-24-2022 Creatinine [Mass/Vol] 0.64 mg/dL 0.55-1.02 [facility] Comment on above: The validity of the calculated GFR & GFRAA in patients over 70 years has not been determined. Clinical correlation is essential. Serum or plasma low density lipoprotein (LDL) cholesterol measurement (mass/volume)Ordered By: ELZBIETA KNOX on 04-24-2022 Cholesterol in LDL [Mass/Vol] 125 mg/dL 0-130 [place] Serum or plasma urea nitroge n measurement (mass/volume)Ordered By: ELZBIETA KNOX on 04-24-2022 Urea nitrogen [Mass/Vol] 10 mg/dL 7-18 [place] Thin prep Papanicolaou smear with manual screeningOrdered By: ELZBIETA KNOX on 04-24-2022 Thin prep Papanicolaou smear with manual screening 20 U/L 15-37 [place] Thin prep Papanicolaou smear with manual screening 9 5-15 [place] Absolute lymphocyte countOrd ered By: Dr. Díaz on 04-22-2022 Lymphocytes Auto (Unsp spec) [#/Vol] 2.46 10*3/uL 0.83-4.51 [place] Basophil percentageOrdered B y: Dr. Díaz on 04-22-2022 Basophils/100 WBC (Bld) 0.6 % 0-1 [facility] Eosinophils/100 WBC (Bld) 1.0 % 0-5 [place] Neutrophils (Bld) [#/Vol] 4.9 10*3/uL 2.0-7.7 [place] Neutrophils/100 WBC (Bld) 61.2 % 47-70 [place] WBC (Bld) [#/Vol] 8.1 10*3/uL 4.4-11.0 [facility] Blood erythrocytes count (nu mber/volume)Ordered By: Dr. Díaz on 04-22-2022 RBC (Bld) [#/Vol] 4.86 10*6/uL 4.2-5.4 [facility] Blood hemoglobin measurement (mass/volume)Ordered By: Dr. Díaz on 04-22-2022 Hemoglobin (Bld) [Mass/Vol] 14.0 g/dL 12.0-15.0 [place] Blood lymphocytes/100 leukoc ytesOrdered By: Dr. Díaz on 04-22-2022 Lymphocytes/100 WBC (Bld) 30.4 % 19-41 [place] Blood monocytes/100 leukocyt esOrdered By: Dr. Díaz on 04-22-2022 Monocytes/100 WBC (Bld) 6.6 % 0-10 [facility] Blood platelet mean volumeOr dered By: Dr. Díaz on 04-22-2022 Platelet mean volume (Bld) [Entitic vol] 11.6 fL 6.2-12.0 [place] Determination of erythrocyte mean corpuscular volume (MCV)Ordered By: Dr. Díaz on 04-22-2022 MCV (RBC) [Entitic vol] 88.7 fL 81-99 [facility] Hematocrit Auto (Bld) [Volum e fraction]Ordered By: Dr. Díaz on 04-22-2022 Hematocrit (Bld) [Volume fraction] 43.1 % 37-47 [place] Iron measurement (mass/mass) Ordered By: Dr. Díaz on 04-22-2022 Iron (Unsp spec) [Mass/Mass] 82 ug/dL 50-170 [facility] - Hematology and Cell countsOrdered By: Dr. Díaz on 04-22-2022 Erythrocyte distribution width (RBC) [Entitic vol] 52.8 fL 35.1-43.9 [place] Erythrocyte distribution width (RBC) [Ratio] 16.1 % 11.6-14.6 [place] Immature granulocytes/100 WBC (Bld) 0.200 % 0.0-0.9 [place] Comment on above: IG% - Immature Granu locytes (promyelocytes, myelocytes and metamyelocytes) > 1% indicates that a LEFT SHIFT is Present. MCH (RBC) [Entitic mass] 28.8 pg 27.0-32.0 [place] Nucleated RBC/100 WBC (Bld) [Ratio] 0 % 0-5 [place] MCHC Auto (RBC) [Mass/Vol]Or dered By: Dr. Díaz on 04-22-2022 MCHC (RBC) [Mass/Vol] 32.5 g/dL 32-36 [facility] Platelets bldOrdered By: Dr. Díaz on 04-22-2022 Platelets (Bld) [#/Vol] 265 10*3/uL 150-450 [place] Serum or plasma ferritin olivia surement (mass/volume)Ordered By: Dr. Díaz on 04-22-2022 Ferritin [Mass/Vol] 28 ng/mL 8-252 [facility] CNOVon 03-27-2022 CNOV Office Visit (UROLAE) FABRICE MOON ([id number]) 1945 F T Date Time Provider Department [...] (primary encounter diagnosis) Referring Provider: MICAH DÍAZ [[id number]] Allergies As of Date: 03/27/2022 Noted Allergy [...] [N39.41] Order(s):so (more content not included)... Normal [facility] KAJAL SCREENINGon 03-25-2022 [facility] CNPNon 02-07-2022 CNPN Telephone (AKURFL) FABRICE MOON ([id number]) 1945 F T Date Time Provider Department 02/07/22 ROXANE PINEDA During your visit today, we recorded the following information about you: Yesenia Herrera [facility] 02/07/2022 8:27 AM Signed Patient states [...] decline MAXIMINO appointment due to living in [place], and has no transportation Yesenia Pineda MD 02/07/2022 11:20 AM Signed Would she like to do a virtual visit with Elzbieta to discuss next steps? Shayy Hadley [facility] 02/07/2022 11:26 AM Signed Pt does [...] NEC/NOS [E78.5] 07/22/2003 MYALGIA AND MYOSITIS NOS [[id number]] 07/22/2003 LUMBOSACRAL NEURITIS NOS [[id number]] 07/27/2003 POSTLAMINECT SYND-LUMBAR [M96.1] 07/27/2003 ABDOMINAL PAIN [...] Encounter Status:Closed by ROXANE PINEDA on 02/07/22 [facility] Absolute lymphocyte countOrd ered By: Dr. Díaz on 01-18-2022 Lymphocytes Auto (Unsp spec) [#/Vol] 2.13 10*3/uL 0.83-4.51 [place] Basophil percentageOrdered B y: Dr. Díaz on 01-18-2022 Basophils/100 WBC (Bld) 0.6 % 0-1 [facility] Eosinophils/100 WBC (Bld) 2.6 % 0-5 [place] Neutrophils (Bld) [#/Vol] 3.3 10*3/uL 2.0-7.7 [place] Neutrophils/100 WBC (Bld) 53.9 % 47-70 [place] WBC (Bld) [#/Vol] 6.2 10*3/uL 4.4-11.0 [facility] Blood erythrocytes count (nu mber/volume)Ordered By: Dr. Díaz on 01-18-2022 RBC (Bld) [#/Vol] 3.93 10*6/uL 4.2-5.4 [facility] Blood hemoglobin measurement (mass/volume)Ordered By: Dr. Díaz on 01-18-2022 Hemoglobin (Bld) [Mass/Vol] 10.5 g/dL 12.0-15.0 [place] Blood lymphocytes/100 leukoc ytesOrdered By: Dr. Díaz on 01-18-2022 Lymphocytes/100 WBC (Bld) 34.5 % 19-41 [place] Blood monocytes/100 leukocyt esOrdered By: Dr. Díaz on 01-18-2022 Monocytes/100 WBC (Bld) 8.1 % 0-10 [facility] Blood platelet mean volumeOr dered By: Dr. Díaz on 01-18-2022 Platelet mean volume (Bld) [Entitic vol] 11.3 fL 6.2-12.0 [place] Determination of erythrocyte mean corpuscular volume (MCV)Ordered By: Dr. Díaz on 01-18-2022 MCV (RBC) [Entitic vol] 85.2 fL 81-99 [facility] Hematocrit Auto (Bld) [Volum e fraction]Ordered By: Dr. Díaz on 01-18-2022 Hematocrit (Bld) [Volume fraction] 33.5 % 37-47 [place] Iron measurement (mass/mass) Ordered By: Dr. Díaz on 01-18-2022 Iron (Unsp spec) [Mass/Mass] 37 ug/dL 50-170 [place] [facility] - Hematology and Cell countsOrdered By: Dr. Díaz on 01-18-2022 Erythrocyte distribution width (RBC) [Entitic vol] 46.8 fL 35.1-43.9 [place] Erythrocyte distribution width (RBC) [Ratio] 14.9 % 11.6-14.6 [place] Immature granulocytes/100 WBC (Bld) 0.300 % 0.0-0.9 [place] Comment on above: IG% - Immature Granu locytes (promyelocytes, myelocytes and metamyelocytes) > 1% indicates that a LEFT SHIFT is Present. MCH (RBC) [Entitic mass] 26.7 pg 27.0-32.0 [place] Nucleated RBC/100 WBC (Bld) [Ratio] 0 % 0-5 [place] MCHC Auto (RBC) [Mass/Vol]Or dered By: Dr. Díaz on 01-18-2022 MCHC (RBC) [Mass/Vol] 31.3 g/dL 32-36 [facility] No Panel InformationOrdered By: Dr. Díaz on 01-18-2022 Total Iron Binding Capacity 555 ug/dL 250-450 [place] Platelets bldOrdered By: Dr. Díaz on 01-18-2022 Platelets (Bld) [#/Vol] 289 10*3/uL 150-450 [place] Serum or plasma ferritin olivia surement (mass/volume)Ordered By: Dr. Díaz on 01-18-2022 Ferritin [Mass/Vol] 9 ng/mL 8-252 [facility] Serum or plasma folate measu rement (mass/volume)Ordered By: Dr. Díaz on 01-18-2022 Folate [Mass/Vol] 21.70 ng/mL 3.1-55.4 [facility] Serum or plasma iron saturat ion measurement (mass fraction)Ordered By: Dr. Díaz on 01-18-2022 Iron saturation [Mass fraction] 6.7 % 15.0-55.0 [place] CNPNon 01-07-2022 CNPN Telephone (AKInCytu) FABRICE MOON ([id number]) 1945 F CHT Date Time Provider Department 01/07/22 ROXANE PINEDA During your visit today, we recorded the following information about you: Ashleigh Borja [employer] 01/07/2022 4:10 PM Signed Pt called asking if we could resend the Trospium 60mg rx to her pharmacy I tried calling but the phone number wasn't working re pendedt he rx. Ashleigh Borja Business Economist Allergies As of Date: 01/07/2022 Noted Allergy Reaction AMITRIPTYLINE 07/22/2003 2 - Rash ELAVIL (AMITRIPTYLINE HCL) 01/28/2006 5 - Intolerance Comments: Has taken with no reaction NAPROXYN (NAPROXEN) 12/13/2005 OXYBUTYNIN 07/24/2021 7 - Swelling TRAMADOL 12/13/2005 VALDECOXIB 07/22/2003 2 - Rash Date Reviewed: 12/26/2021 Reviewed by: Citlali Phelan CT - Fully Assessed Reason for Visit: resending rx [Other] Order(s):Trospium (SANCTURA SR) 60 mg [id number] 1 capsule by mouth once daily.Disp: 30 [...] NEC/NOS [E78.5] 07/22/2003 MYALGIA AND MYOSITIS NOS [[id number]] 07/22/2003 LUMBOSACRAL NEURITIS NOS [[id number]] 07/27/2003 POSTLAMINECT SYND-LUMBAR [M96.1] 07/27/2003 ABDOMINAL PAIN [...] Status:Closed by ASHLEIGH BORJA CMA on 01/09/22 [facility] Katty 01-01-2022 CNPN Telephone (AKURFL) FABRICE MOON ([id number]) 1945 F [facility] Date Time Provider Department 01/01/22 ROXANE [...] urination [R39.15] Order(s):Trospium (SANCTURA SR) 60 mg [id number] 1 capsule by mouth once daily.Disp: 30 [...] NEC/NOS [E78.5] 07/22/2003 MYALGIA AND MYOSITIS NOS [[id number]] 07/22/2003 LUMBOSACRAL NEURITIS NOS [[id number]] 07/27/2003 POSTLAMINECT SYND-LUMBAR [M96.1] 07/27/2003 ABDOMINAL PAIN [...] During This (more content not included)... Normal [facility] CNOVon 12-26-2021 CNOV Office Visit (UROLAE) FABRICE MOON ([id number]) 1945 F T Date Time Provider Department [...] (primary encounte (more content not included)... Normal [facility] CNPKeturah 12-18-2021 CNPN Telephone ([facility]) FABRICE MOON ([id number]) 1945 F T Date Time Provider Department [...] Fully Assessed Reason for Visit: Patient Question [0860] Prescriptions as of 12/18/2021 - tolterodine ER [...] NEC/NOS [E78.5] 07/22/2003 MYALGIA AND MYOSITIS NOS [[id number]] 07/22/2003 LUMBOSACRAL NEURITIS NOS [[id number]] 07/27/2003 POSTLAMINECT SYND-LUMBAR [M96.1] 07/27/2003 ABDOMINAL PAIN [...] Status:Closed by AUSTIN MITCHELL MA on 12/18/21 [facility] ALLIED HEALTHon 12-10-2021 ALLIED HEALTH HNO ID: [id number] Author: Chaplain Deborah Service: Spiritual Care Author Type: Insurance Claims Processor Type: Allied Health Filed: 12/10/2021 11:27 AM Note Text: SPIRITUAL CARE PROGRESS NOTE SERVICE DATE: 12/10/2021 SERVICE TIME: 9:04am Insurance Claims Processor supported patient and niece before surgery; patient expressed anxiety and manager of supply chain normalized feelings. Insurance Claims Processor also prayed and they were very grateful for support To contact the Spiritual Care Department: Please call . SIGNATURE: Chaplain Deborah PATIENT NAME: Fabrice Moon DATE: December 10, 2021 TIME: 11:26 AM PAGER/CONTACT #: [phone] [facility] ANES POSTPROC EVALon 022 ANES POSTPROC EVAL HNO ID: [id number] Author: Edwar Dumas MD Service: Anesthesiology Author Type: Physician Type: Anesthesia Postprocedure Evaluation Filed: 12/10/2021 9:44 PM Note Text: POST ANESTHESIA EVALUATION NOTE : 1945 Procedure Summary Date: 12/10/21 Room / Location: [facility] OR 04 / [place] OR Anesthesia Start: [...] December 10, 2021 TIME: 9:44 PM CSN: [id number] [facility] ANES PRE-OPon 12-10-2021 ANES PRE-OP HNO ID: [id number] Author: Hector Copeland MD Service: ? Author Type: Anesthesiologist Type: Anesthesia Preprocedure Evaluation Filed: 12/10/2021 11:45 AM Note Text: ANESTHESIOLOGY DAY OF SURGERY NOTE : 1945 Procedure Information Date/Time: 12/10/21 1200 Procedures: XI ROBOTIC LAPAROSCOPIC COLPOPEXY (Abdomen) POSTERIOR COLPORRHAPHY W/ REPAIR RECTOCELE AND PERINEORRHAPHY (Vagina ) SLING SURGERY FOR STRESS INCONTINENCE W/ TENSION FREE VAG TAPE (Bladder) CYSTOSCOPY (Bladder) Location: [facility] OR / [facility] OR Surgeons: Roxane Pineda MD Estimated body mass index is 30.38 kg/m? as calculated from the following: Height as of 09/26/21: 170.2 cm (5' 7). Weight as of 09/26/21: 88 kg (194 lb). 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 Mets > 5. Denies exertional chest pain, dyspnea, lightheadedness. Follows routinely with industrial machinery mechanic in [place]. No major changes since AVR in 2010. [...] and consent discussed: yes. Patient / Responsible Green Party agrees to proceed: yes Patient / Surrogate [...] have interview (more content not included)... Normal [facility] HISTORY PHYSICALon HISTORY PHYSICAL HNO ID: [id number] Author: Roxane Pineda MD Service: Urology Author Type: Physician Type: Operative Report Filed: 12/10/2021 6:33 PM Note Text: UROLOGY SERVICE OPERATIVE NOTE LOG ID: [id number] Surgery/Procedure Date: 12/10/2021 Incision/Procedure Start Time: 2:46 PM Incision Close/Procedure End Time: 6:01 PM Patient Age: [age] year old Surgeon(s)/Procedura list(s) and High Pressure Boiler Operator(s): Surgeon(s) and Role: * Roxane Pineda MD - Primary * Siva Sutton MD - Resident - Assisting Anesthesiology Tech: Manolo Alegre SA Anesthesiology Tech (Relief): Jamal Santizo SA Anesthesia: General Preop [...] closed wi (more content not included)... Normal [facility] NURSING PROGon 12-10-2021 NURSING PROG HNO ID: [id number] Author: Ileana Sanchez RN Service: Nursing Author Type: Registered Nurse Type: Nursing Progress Note Filed: 12/10/2021 9:40 PM Note Text: 2100 - Instilled 200cc into bladder, ambulated to bathroom. Voided 100cc blood tinged urine. Back to bed, bladder scanned for approximately 120cc. Paged and informed Petra (uro resident); pt ok to go home. Normal [facility] OPERATIVE NOon 12-10-2021 OPERATIVE NO HNO ID: [id number] Author: Roxane Pineda MD Service: Urology Author Type: Physician Type: Operative Report Filed: 12/10/2021 6:33 PM Note Text: UROLOGY SERVICE OPERATIVE NOTE LOG ID: [id number] Surgery/Procedure Date: 12/10/2021 Incision/Procedure Start Time: 2:46 PM Incision Close/Procedure End Time: 6:01 PM Patient Age: [age] year old Surgeon(s)/Procedura list(s) and High Pressure Boiler Operator(s): Surgeon(s) and Role: * Roxane Pineda MD - Primary * Siva Sutton MD - Resident - Assisting Anesthesiology Tech: Manolo Alegre SA Anesthesiology Tech (Relief): Jamal MedelRuddy Santizo SA Anesthesia: General [...] closed wi (more content not included)... [facility] FABRICE MOON ([id number]) 1945 F CHT Date Time Provider Department [...] NEC/NOS [E78.5] 07/22/2003 MYALGIA AND MYOSITIS NOS [[id number]] 07/22/2003 LUMBOSACRAL NEURITIS NOS [[id number]] 07/27/2003 POSTLAMINECT SYND-LUMBAR [M96.1] 07/27/2003 ABDOMINAL PAIN EPIGASTRIC [R10.13] ACUTE GASTRITIS W/O HEMORRHAGE [K29.00] Pre-op testing [Z01.818] 10/22/2010 10/24/2010 10/23/10: AVR #23 CE [V999.95] 10/23/2010 HTN (hypertension) [I10] 10/23/2010 10/24/2010 Pain following surgery or procedure [G89.18] 10/23/2010 Hypotension [I95.9] 10/24/2010 Anxiety [F41.9] 10/24/2010 Thrombocytopenia (HCC) [D69.6] 10/25/2010 10/27/2010 Sinus tachycardia [R00.0] 10/28/2010 Vaginal enterocele [N81.5] 12/29/2020 Encounter Status:Closed by ROXANE PINEDA on 11/13/21 [facility] 11-12-2021 [place]ARRELL Telephone (JENNIFERLAE) FABRICE MOON ([id number]) 1945 F T Date Time Provider Department [...] NEC/NOS [E78.5] 07/22/2003 MYALGIA AND MYOSITIS NOS [[id number]] 07/22/2003 LUMBOSACRAL NEURITIS NOS [[id number]] 07/27/2003 POSTLAMINECT SYND-LUMBAR [M96.1] 07/27/2003 ABDOMINAL PAIN EPIGASTRIC [R10.13] ACUTE GASTRITIS W/O HEMORRHAGE [K29.00] Pre-op testing [Z01.818] 10/22/2010 10/24/2010 10/23/10: AVR #23 CE [V999.95] 10/23/2010 HTN (hypertension) [I10] 10/23/2010 10/24/2010 Pain following surgery or procedure [G89.18] 10/23/2010 Hypotension [I95.9] 10/24/2010 Anxiety [F41.9] 10/24/2010 Thrombocytopenia (HCC) [D69.6] 10/25/2010 10/27/2010 Sinus tachycardia [R00.0] 10/28/2010 Vaginal enterocele [N81.5] 12/29/2020 Encounter Status:Closed by ROXANE PINEDA on 11/12/21 [facility] CNCOon 10-16-2021 CNCO Letter Text [facility] CNPNon 09-27-2021 CNPN Telephone (AKURFL) FABRICE MOON ([id number]) 1945 F T Date Time Provider Department 09/27/21 ROXANE PINEDA During your visit today, we recorded the following information about you: Natty Marcial Business Economist 09/27/2021 10:30 AM Signed Patient child care director called stated the script for tolterodine that was called in to [facility], Erin stated that Patients account information was needed to help with the script, I have advised child care director that the script was called in already, Account [facility], id # [id number] Natty Marcial Business Economist Allergies As of Date: 09/27/2021 Noted Allergy [...] NEC/NOS [E78.5] 07/22/2003 MYALGIA AND MYOSITIS NOS [[id number]] 07/22/2003 LUMBOSACRAL NEURITIS NOS [[id number]] 07/27/2003 POSTLAMINECT SYND-LUMBAR [M96.1] 07/27/2003 ABDOMINAL PAIN [...] Status:Closed by NATTY MARCIAL CMA on 09/27/21 [facility] CNOVon 09-26-2021 CNOV Office Visit (UROLAE) FABRICE MOON ([id number]) 1945 F [facility] Date Time Provider Department 09/26/21 1:45 [...] 30.38 kg/m? (more content not included)... Normal [facility] CNOV Office Visit (UROLAE) FABRICE MOON ([id number]) 1945 F [facility] Date Time Provider Department 09/26/21 10:00 AM PROC URODYNAMICS UROLAE During your visit today, we recorded the following information about you: Uri Capone RN 09/26/2021 9:32 AM Signed POST PROCEDURE INSTRUCTIONS Fabrice Moon September 26, 2021 ? Increase your fluid intake. ? FOLLOW UP APPOINTMENT: 09/26/21 at 1:45 pm with Roxane Pineda MD in the [address] [place] [address] office. ? WHEN TO CALL THE DOCTOR: ? If you develop fever (over 101 degrees) or chills. ? If you cannot urinate or empty your bladder. ? If you develop symptoms of a urinary tract infection such as burning or pain with urination, increased frequency of urination or foul smelling urine ? If you have any other questions or problems. Office phone number; [phone] Uri Capone RN 09/26/2021 12:10 PM Addendum Fabrice Moon [id number] 1945 September 26, 2021 Diagnoses: Stress urinary [...] Roxane Pineda MD Referring Provider: MICAH DÍAZ [[id number]] Allergies As of Date: 09/26/2021 Noted Allergy Reaction AMITRIPTYLINE 07/22/2003 2 - Rash ELAVIL (AMITRIPTYLINE HCL) 01/28/2006 5 - Intolerance Comments: Has taken with no reaction NAPROXYN (NAPROXEN) 12/13/2005 OXYBUTYNIN 07/24/2021 7 - Swelling TRAMADOL 12/13/2005 VALDECOXIB 07/22/2003 2 - Rash Date Reviewed: 09/26/2021 Revi (more content not included)... Normal [facility] UA DIP, URINE (POC)on 2021 BILIRUBIN UA (POCT) Negative Negative [facility] CLARITY UA (POCT) Clear [facility] COLOR UA (POCT) Yellow [facility] GLUCOSE UA (POCT) Negative Negative mg/dL [facility] HEMOGLOBIN/BLOOD UA (POCT) Small Abnormal Negative [facility] KETONE UA (POCT) Negative Negative mg/dL [facility] LEUKOCYTES UA (POCT) Small Abnormal Negative [facility] [place] NITRITE UA (POCT) Negative Negative [facility] PH UA (POCT) 5.5 4.5 - 8.0 [facility] Protein Ql (U) Negative Negative mg/dL [facility] SPECIFIC GRAVITY UA (POCT) 1.015 1.005 - 1.030 [facility] UROBILINOGEN UA (POCT) 0.2 E.U./dL Samara l E.U./dL [facility] Basophil percentageon 2021 Bilirubin [Mass/Vol] 0.40 mg/dL 0.20-1.00 [facility] Work Phone: Comment on above: For patients on eltr ombopag therapy, use of Dimension [place] TBIL is not recommended. Chloride [Moles/Vol] 107 mmol/L 98-107 [facility] Work Phone: Glucose [Mass/Vol] 101 mg/dL 74-106 [facility] Work Phone: Comment on above: Fasting Glucose resu lt from 100 to 125 mg/dL suggests IMPAIRED HOMEOSTASIS per A.D.A. criteria. Potassium [Moles/Vol] 4.0 mmol/L 3.5-5.1 [facility] Work Phone: Protein [Mass/Vol] 7.0 g/dL 6.4-8.2 [facility] Work Phone: Sodium [Moles/Vol] 140 mmol/L 136-145 [facility] Work Phone: Laboratory - Chemistry and C hemistry - challengeon 09-18-2021 ALP [Catalytic activity/Vol] 68 U/L 45-117 [place] Work Phone: ALT [Catalytic activity/Vol] 26 U/L 13-56 [place] Work Phone: CO2 [Moles/Vol] 27.0 mmol/L 21.0-32.0 [place] Work Phone: Globulin (S) [Mass/Vol] 3.3 g/dL 2.2-4.2 [facility] Work Phone: Urea nitrogen/Creatinine [Mass ratio] 23.8 mg/mg 10-20 [place] Work Phone: No Panel Informationon 09-18 Estimated GFR (MDRD) Amer 118 mL/min >60 [place] Work Phone: Comment on above: GFR Calc Estimated GFR (MDRD) Non-Af Amer 97 mL/min >60 [place] Work Phone: Comment on above: Non- GFR Calc Thyroid Stimulating Hormone (TSH) 0.86 uIU/mL 0.358-3.74 [place] Work Phone: Serum or plasma albumin deo urement (mass/volume)on 09-18-2021 Albumin [Mass/Vol] 3.7 g/dL 3.2-5.0 [facility] Work Phone: Serum or plasma albumin/glob ulin mass ratioon 09-18-2021 Albumin/Globulin [Mass ratio] 1.1 {ratio} 0.9-2.4 [place] Work Phone: Serum or plasma calcium deo urement (mass/volume)on 09-18-2021 Calcium [Mass/Vol] 8.7 mg/dL 8.5-10.1 [facility] Work Phone: Serum or plasma creatinine m easurement (mass/volume)on 09-18-2021 Creatinine [Mass/Vol] 0.63 mg/dL 0.55-1.02 [facility] Work Phone: Comment on above: The validity of the calculated GFR & GFRAA in patients over 70 years has not been determined. Clinical correlation is essential. Serum or plasma urea nitroge n measurement (mass/volume)on 09-18-2021 Urea nitrogen [Mass/Vol] 15 mg/dL 7-18 [place] Work Phone: Thin prep Papanicolaou smear with manual screeningon 09-18-2021 Thin prep Papanicolaou smear with manual screening 19 U/L 15-37 [place] Work Phone: Thin prep Papanicolaou smear with manual screening 6 5-15 [place] Work Phone: CNOVon 07-24-2021 CNOV Office Visit (UROLAE) FABRICE MOON Jennifer ([id number]) 1945 F [facility] Date Time Provider Department 07/24/21 1:15 [...] - Diabetes (more content not included)... 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 01-25-2016 Albumin mass conc 3.6 g/dL [employer] Work Phone: Albumin/Globulin mass ratio 1.1 {ratio} [employer] Work Phone: ALP enzyme act/vol (Bld) 73 U/L [employer] Work Phone: ALT enzyme act/vol 45 U/L [...] Cholesterol in HDL mass conc 44 mg/dL [facility] Work Phone: 1) 0 Cholesterol [...] ) 0 Glomerular Filtration Rate 115 mL/min/1.73m2 [facility] Work Phone: 1) 0 Glucose mass conc 95 mg/dL [facility] Work Phone: 1 0 Hematocrit Volume Fraction (Bld) 41.6 % [facility] Work Phone: 1) 0 Hemoglobin mass conc (Bld) 13.8 g/dL [facility] Work Phone: ) 0 Lipoprotein.pre-beta mass conc 35 mg/dL [facility] Work Phone: [phone] MCH Entitic mass (RBC) 30.7 pg [facility] Work Phone: 1 0 MCHC mass conc (RBC) 33.2 g/dL [facility] Work Phone: [phone] MCV Entitic volume (RBC) 92.7 fL [facility] Work Phone: 1 0 Platelet mean volume Entitic volume (Bld) 10.7 fL [facility] Work Phone: 1) 0 Platelets #/vol (Bld) 194 10*3/mm3 [facility] Work Phone: 1 0 Potassium molar conc 3.7 mmol/L [facility] Work Phone: 1 0 Protein mass conc 7.0 g/dL [facility] Work Phone: 1) 0 RBC #/vol (Bld) 4.49 10*6/uL [facility] Work Phone: 1 0 Sodium molar conc 136 mmol/L [facility] Work Phone: 1 0 Thyrotropin Qn 0.87 u[iU]/mL [facility] Work Phone: 1 0 Triglyceride mass conc 175 mg/dL [facility] Work Phone: [phone] Urea nitrogen mass conc 9 mg/dL [facility] Work Phone: 1 0 Urea nitrogen/Creatinine mass ratio 13.8 mg/mg [facility] Work Phone: 1 0 WBC #/vol (Bld) 6.3 10*3/uL [facility] Work Phone: [phone] Office Visiton 07-11-2015 Tobacco smoking status NHIS Never smoker [facility] Work Phone: [phone] Replaced Document: [employer] E CG Observationson 12-08-2014 EKG QRS axis 12 deg [facility] Work Phone: [phone] Interpretation Sinus Bradycardia - occasional ectopic ventricular beat - Nonspecific T-abnormality. ABNORMAL [facility] Work Phone: [phone] P Idabel 45 deg [facility] Work Phone: [phone] TN Interval 182 ms [facility] Work Phone: [phone] QRS Duration 94 ms [facility] Work Phone: [phone] QT Interval new path ms [facility] Work Phone: [phone] QTc Madrigal 413 ms [facility] Work Phone: [phone] T Idabel 90 deg [facility] Work Phone: [phone] Office Visiton 05-12-2014 cardiac risk group [facility] Work Phone: [phone] General cardiovascular disease 10Y risk [#] [place]D'Agostino N/A [facility] Work Phone: [phone] Clinical Lists Update: Prelo special officer 02-10-2013 Glucose fasting mass conc 76 mg/dL [facility] Work Phone: [phone] BLADDER SCAN [facility] Vital Signs Date Time Vital Sign Value Performing Clinician Faci lity 02-02-2025 11:12-0400 Body height 165.[address] Micah Díaz DO Work Phone: [place] 02-02-2025 11:12-0400 Body mass index (BMI) [Ratio] 30.6 kg/m2 Dr. Micah Díaz DO Work Phone: [place] 02-02-2025 11:12-0400 Body temperature 97.9 [degF] Dr. Micah Díaz DO Work Phone: [place] 02-02-2025 11:12-0400 Body weight 83.[address] Micah Díaz DO Work Phone: [place] 02-02-2025 11:12-0400 Diastolic blood pressure 78 mm[Hg] Dr. Micah Díaz DO Work Phone: [place] 02-02-2025 11:12-0400 Heart rate 70 /min Dr. Micah Díaz DO Work Phone: [place] 02-02-2025 11:12-0400 Systolic blood pressure 126 mm[Hg] Dr. Micah Díaz DO Work Phone: [place] 01-26-2025 11:35-0400 Body mass index (BMI) [Ratio] 30.6 kg/m2 Dr. Micah Díaz DO Work Phone: [place] 01-26-2025 11:35-0400 Body temperature 98.1 [degF] Dr. Micah Díaz DO Work Phone: [place] 01-26-2025 11:35-0400 Body weight 83.[address] Micah Díaz DO Work Phone: [place] 01-26-2025 11:35-0400 Diastolic blood pressure 80 mm[Hg] Dr. Micah Díaz DO Work Phone: [place] 01-26-2025 11:35-0400 Heart rate 70 /min Dr. Micah Díaz DO Work Phone: [place] 01-26-2025 11:35-0400 Systolic blood pressure 124 mm[Hg] Dr. Micah Díaz DO Work Phone: [place] 01-20-2025 08:51-0400 Body mass index (BMI) [Ratio] 30.6 kg/m2 Dr. Micah Díaz DO Work Phone: [place] 01-20-2025 08:51-0400 Body weight 83.[address] Micah Díaz DO Work Phone: [place] 01-20-2025 08:51-0400 Diastolic blood pressure 71 mm[Hg] Dr. Micah Díaz DO Work Phone: [place] 01-20-2025 08:51-0400 Heart rate 52 /min Dr. Micah Díaz DO Work Phone: [place] 01-20-2025 08:51-0400 Respiratory rate 16 /min Dr. Micah Díaz DO Work Phone: [place] 01-20-2025 08:51-0400 SaO2% (BldA) [Mass fraction] 94 % Dr. Micah Díaz DO Work Phone: [place] 01-20-2025 08:51-0400 Systolic blood pressure 113 mm[Hg] Dr. Micah Díaz DO Work Phone: [place] 01-19-2025 12:56-0400 Body height 165.[address] Micah Díaz DO Work Phone: [place] 01-19-2025 12:56-0400 Body mass index (BMI) [Ratio] 29.6 kg/m2 Dr. Micah Díaz DO Work Phone: [place] 01-19-2025 12:56-0400 Body temperature 98 [degF] Dr. Micah Díaz DO Work Phone: [place] 01-19-2025 12:56-0400 Body weight 80.[address] Micah Díaz DO Work Phone: [place] 01-19-2025 12:56-0400 Diastolic blood pressure 82 mm[Hg] Dr. Micah Díaz DO Work Phone: [place] 01-19-2025 12:56-0400 Respiratory rate 74 /min Dr. Micah Díaz DO Work Phone: [place] 01-19-2025 12:56-0400 Systolic blood pressure 124 mm[Hg] Dr. Mciah Díaz DO Work Phone: [place] 01-12-2025 11:32-0400 Body height 165.[address] Micah Díaz DO Work Phone: [place] 01-12-2025 11:32-0400 Body mass index (BMI) [Ratio] 29.6 kg/m2 Dr. Micah Díaz DO Work Phone: [place] 01-12-2025 11:32-0400 Body temperature 98.1 [degF] Dr. Micah Díaz DO Work Phone: [place] 01-12-2025 11:32-0400 Body weight 80.[address] Micah Díaz DO Work Phone: [place] 01-12-2025 11:32-0400 Diastolic blood pressure 80 mm[Hg] Dr. Micah Díaz DO Work Phone: [place] 01-12-2025 11:32-0400 Heart rate 74 /min Dr. Micah Díaz DO Work Phone: [place] 01-12-2025 11:32-0400 Systolic blood pressure 126 mm[Hg] Dr. Micah Díaz DO Work Phone: [place] 01-05-2025 14:01-0400 Body height 165.[address] Micah Díaz DO Work Phone: [place] 01-05-2025 14:01-0400 Body mass index (BMI) [Ratio] 29.6 kg/m2 Dr. Micah Díaz DO Work Phone: [place] 01-05-2025 14:01-0400 Body temperature 97.9 [degF] Dr. Micah Díaz DO Work Phone: [place] 01-05-2025 14:01-0400 Body weight 80.[address] Micah Díaz DO Work Phone: [place] 01-05-2025 14:01-0400 Diastolic blood pressure 84 mm[Hg] Dr. Micah Díaz DO Work Phone: [place] 01-05-2025 14:01-0400 Heart rate 60 /min Dr. Micah Díaz DO Work Phone: [place] 01-05-2025 14:01-0400 Systolic blood pressure 128 mm[Hg] Dr. Micah Díaz DO Work Phone: [place] 12-29-2024 11:52-0400 Body height 165.[address] Micah Díaz DO Work Phone: [place] 12-29-2024 11:52-0400 Body mass index (BMI) [Ratio] 29.6 kg/m2 Dr. Micah Díaz DO Work Phone: [place] 12-29-2024 11:52-0400 Body temperature 97.9 [degF] Dr. Micah Díaz DO Work Phone: [place] 12-29-2024 11:52-0400 Body weight 80.[address] Micah Díaz DO Work Phone: [place] 12-29-2024 11:52-0400 Diastolic blood pressure 78 mm[Hg] Dr. Micah Díaz DO Work Phone: [place] 12-29-2024 11:52-0400 Heart rate 76 /min Dr. Micah Díaz DO Work Phone: [place] 12-29-2024 11:52-0400 Systolic blood pressure 124 mm[Hg] Dr. Micah Díaz DO Work Phone: [place] 12-22-2024 11:30-0400 Body height 165.[address] Micah Díaz DO Work Phone: [place] 12-22-2024 11:30-0400 Body mass index (BMI) [Ratio] 29.6 kg/m2 Dr. Micah Díaz DO Work Phone: [place] 12-22-2024 11:30-0400 Body temperature 97.9 [degF] Dr. Micah Díaz DO Work Phone: [place] 12-22-2024 11:30-0400 Body weight 80.[address] Micah Díaz DO Work Phone: [place] 12-22-2024 11:30-0400 Diastolic blood pressure 78 mm[Hg] Dr. Micah Díaz DO Work Phone: [place] 12-22-2024 11:30-0400 Heart rate 64 /min Dr. Micah Díaz DO Work Phone: [place] 12-22-2024 11:30-0400 Systolic blood pressure 126 mm[Hg] Dr. Micah Díaz DO Work Phone: [place] 12-15-2024 11:28-0400 Body height 165.[address] Micah Díaz DO Work Phone: [place] 12-15-2024 11:28-0400 Body mass index (BMI) [Ratio] 29.6 kg/m2 Dr. Micah Díaz DO Work Phone: [place] 12-15-2024 11:28-0400 Body temperature 98 [degF] Dr. Micah Díaz DO Work Phone: [place] 12-15-2024 11:28-0400 Body weight 80.[address] Micah Díaz DO Work Phone: [place] 12-15-2024 11:28-0400 Diastolic blood pressure 84 mm[Hg] Dr. Micah Díaz DO Work Phone: [place] 12-15-2024 11:28-0400 Heart rate 68 /min Dr. Micah Díaz DO Work Phone: [place] 12-15-2024 11:28-0400 Systolic blood pressure 128 mm[Hg] Dr. Micah Díaz DO Work Phone: [place] 12-07-2024 15:31-0400 Body height 165.[address] Micah Díaz DO Work Phone: [place] 12-07-2024 15:31-0400 Body mass index (BMI) [Ratio] 29.6 kg/m2 Dr. Micah Díaz DO Work Phone: [place] 12-07-2024 15:31-0400 Body temperature 98 [degF] Dr. Micah Díaz DO Work Phone: [place] 12-07-2024 15:31-0400 Body weight 80.[address] Micah Díaz DO Work Phone: [place] 12-07-2024 15:31-0400 Diastolic blood pressure 78 mm[Hg] Dr. Micah Díaz DO Work Phone: [place] 12-07-2024 15:31-0400 Heart rate 60 /min Dr. Micah Díaz DO Work Phone: [place] 12-07-2024 15:31-0400 Systolic blood pressure 120 mm[Hg] Dr. Micah Díaz DO Work Phone: [place] 07-20-2024 11:01-0400 Body mass index (BMI) [Ratio] 32.3 kg/m2 Dr. Micah Díaz DO Work Phone: [place] 07-20-2024 11:01-0400 Body weight 87.[address] Micah Díaz DO Work Phone: [place] 07-20-2024 11:01-0400 Diastolic blood pressure 83 mm[Hg] Dr. Micah Díaz DO Work Phone: [place] 07-20-2024 11:01-0400 Heart rate 57 /min Dr. Micah Díaz DO Work Phone: [place] 07-20-2024 11:01-0400 Respiratory rate 18 /min Dr. Micah Díaz DO Work Phone: [place] 07-20-2024 11:01-0400 SaO2% (BldA) [Mass fraction] 97 % Dr. Micah Díaz DO Work Phone: [place] 07-20-2024 11:01-0400 Systolic blood pressure 162 mm[Hg] Dr. Micah Díaz DO Work Phone: [place] 05-18-2024 13:52-0500 Body height 164.5 cm Cassy Zuniga MD Work Phone: [facility] 05-18-2024 13:52-0500 Body mass index (BMI) [Ratio] 32.37 kg/m2 Cassy Zuniga MD Work Phone: [facility] 05-18-2024 13:52-0500 Body weight 87.54 kg Cassy Zuniga MD Work Phone: [facility] 05-18-2024 13:52-0500 Diastolic blood pressure 74 mm[Hg] Cassy Zuniga MD Work Phone: [facility] 05-18-2024 13:52-0500 Systolic blood pressure 148 mm[Hg] Cassy Zuniga MD Work Phone: [facility] 04-25-2023 10:56-0500 Body height 165.[address] Micah Díaz Work Phone: [place] 04-25-2023 10:56-0500 Body mass index (BMI) [Ratio] 31.2 kg/m2 Dr. Micah Díaz Work Phone: [place] 04-25-2023 10:56-0500 Body weight 85.[address] Micah Díaz Work Phone: [place] 04-25-2023 10:56-0500 Diastolic blood pressure 82 mm[Hg] Dr. Micah Díaz Work Phone: [place] 04-25-2023 10:56-0500 Heart rate 78 /min Dr. Micah Díaz Work Phone: [place] 04-25-2023 10:56-0500 Respiratory rate 18 /min Dr. Micah Díaz Work Phone: [place] 04-25-2023 10:56-0500 SaO2% (BldA) [Mass fraction] 96 % Dr. Micah Díaz Work Phone: [place] 04-25-2023 10:56-0500 Systolic blood pressure 119 mm[Hg] Dr. Micah Díaz Work Phone: [place] 01-07-2023 14:20-0400 Body height 165.[address] Micah Díaz Work Phone: [place] 01-07-2023 14:20-0400 Body mass index (BMI) [Ratio] 30.9 kg/m2 Dr. Micah Díaz Work Phone: [place] 01-07-2023 14:20-0400 Body weight 84.[address] Micah Díaz Work Phone: [place] 01-07-2023 14:20-0400 Diastolic blood pressure 67 mm[Hg] Dr. Micah Díaz Work Phone: [place] 01-07-2023 14:20-0400 Heart rate 52 /min Dr. Micah Díaz Work Phone: [place] 01-07-2023 14:20-0400 Respiratory rate 18 /min Dr. Micah Díaz Work Phone: [place] 01-07-2023 14:20-0400 SaO2% (BldA) [Mass fraction] 97 % Dr. Micah Díaz Work Phone: [place] 01-07-2023 14:20-0400 Systolic blood pressure 121 mm[Hg] Dr. Micah Díaz Work Phone: [place] 12-24-2022 11:13-0400 Body height 165.[address] Micah Díaz Work Phone: [place] 12-24-2022 11:13-0400 Body weight 83.[address] Micah Díaz Work Phone: [place] 12-23-2022 14:17-0400 Body mass index (BMI) [Ratio] 30.7 kg/m2 Dr. Micah Díaz Work Phone: [place] 11-01-2022 10:33-0400 Body height 165.[address] Micah Díaz Work Phone: [place] 11-01-2022 10:33-0400 Body weight 83.[address] Micah Díaz Work Phone: [place] 10-31-2022 07:09-0400 Body mass index (BMI) [Ratio] 30.7 kg/m2 Dr. Micah Díaz Work Phone: [place] 10-03-2022 09:50-0400 Body mass index (BMI) [Ratio] 30.7 kg/m2 Dr. Micah Díaz Work Phone: [place] 10-03-2022 09:50-0400 Body weight 83.[address] Micah Díaz Work Phone: [place] 10-03-2022 09:50-0400 Diastolic blood pressure 80 mm[Hg] Dr. Micah Díaz Work Phone: [place] 10-03-2022 09:50-0400 Heart rate 92 /min Dr. Micah Díaz Work Phone: [place] 10-03-2022 09:50-0400 Respiratory rate 18 /min Dr. Micah Díaz Work Phone: [place] 10-03-2022 09:50-0400 SaO2% (BldA) [Mass fraction] 98 % Dr. Micah Díaz Work Phone: [place] 10-03-2022 09:50-0400 Systolic blood pressure 129 mm[Hg] Dr. Micah Díaz Work Phone: [place] 05-31-2022 09:49-0500 Body height 165.[address] Micah Díaz Work Phone: [place] 05-31-2022 09:49-0500 Diastolic blood pressure 77 mm[Hg] Dr. Micah Díaz Work Phone: [place] 05-31-2022 09:49-0500 Systolic blood pressure 120 mm[Hg] Dr. Micah Díaz Work Phone: [place] 05-31-2022 09:49-0500 Body mass index (BMI) [Ratio] 32.9 kg/m2 Dr. Micah Díaz Work Phone: [place] 05-31-2022 09:49-0500 Body weight 89.[address] Micah Díaz Work Phone: [place] 05-31-2022 09:49-0500 Heart rate 52 /min Dr. Micah Díaz Work Phone: [place] 05-31-2022 09:49-0500 Respiratory rate 20 /min Dr. Micah Díaz Work Phone: [place] 05-31-2022 09:49-0500 SaO2% (BldA) [Mass fraction] 96 % Dr. Micah Díaz Work Phone: [place] 09-26-2021 13:36-0400 Body height 170.2 cm Roxane Pineda MD Work Phone: [facility] 09-26-2021 13:36-0400 Body weight 88 kg Roxane Pineda MD Work Phone: [facility] 09-26-2021 13:36-0400 Diastolic blood pressure 74 mm[Hg] Roxane Pineda MD Work Phone: [facility] 09-26-2021 13:36-0400 Systolic blood pressure 128 mm[Hg] Roxane Pineda MD Work Phone: [facility] 07-24-2021 13:23-0400 Body height 170.2 cm Roxane Pineda MD Work Phone: [facility] [facility] 07-24-2021 13:23-0400 Body weight 89.81 kg Roxane Pineda MD Work Phone: [facility] 05-08-2021 12:23-0500 Body height 165.[address] Micah Díaz Work Phone: [place] Work Phone: 05-08-2021 12:23-0500 Body mass index (BMI) [Ratio] 33.1 kg/m2 Dr. Micah Díaz Work Phone: [place] Work Phone: 05-08-2021 12:23-0500 Body weight 90.[address] Micah Díaz Work Phone: [place] Work Phone: 05-08-2021 12:23-0500 Diastolic blood pressure 80 mm[Hg] Dr. Micah Díaz Work Phone: [place] Work Phone: 05-08-2021 12:23-0500 Heart rate 53 /min Dr. Micah Díaz Work Phone: [place] Work Phone: 05-08-2021 12:23-0500 Respiratory rate 18 /min Dr. Micah Díaz Work Phone: [place] Work Phone: 05-08-2021 12:23-0500 SaO2% (BldA) [Mass fraction] 95 % Dr. Micah Díaz Work Phone: [place] Work Phone: 05-08-2021 12:23-0500 Systolic blood pressure 148 mm[Hg] Dr. Micah Díaz Work Phone: [place] Work Phone: 05-21-2016 10:03-0500 BMI (Body Mass [...] 10:03-0500 Weight 94.08 kg Angel Fairchild MD [facility] Work Phone: 12-08-2014 08:39-0400 Heart rate 59 /min MD [facility] Work Phone: 11-03-2013 11:39-0400 Heart rate 416 ms MD [facility] Work Phone: 09-03-2011 11:22-0400 Height 170.18 cm Angel Fairchild MD [facility] Work Phone: Encounters Encounter Date Encounter Type Care Provider Facility Start: 02-02-2025 End: 02-02-2025 ambulatory Micah Díaz Facility:[facility] Start: 01-26-2025 End: 01-26-[address] Lynn Christensen MD -[facility] Work Phone: Start: 01-26-2025 End: 01-26-[address] Micah Díaz DO Work Phone: -[facility] Start: 01-20-2025 End: 01-20-2025 Patient encounter procedure Ileana ALEGRE -[facility] Work Phone: Start: 01-20-2025 End: 01-20-[address] Micah Díaz DO Work Phone: -[facility] Start: 01-19-2025 End: 01-19-[address] Christiano Medeiros DPM -Physical Therapy Work Phone: Start: 01-19-2025 End: 01-19-[address] Lynn Christensen MD -[facility] Work Phone: Start: 01-19-2025 End: 01-19-[address] Micah Dí[facility] DO [facility] Start: 01-14-2025 End: 01-14-[address] [facility] Work Phone: Start: 01-14-2025 End: 01-14-[address] Micah Díaz DO Work Phone: [facility] Start: 01-14-2025 Non-patient / Non-visit Dr. Lynn negron MD -[facility] Work Phone: Start: 01-13-[address] Monserrat Medeiros DPM -Physical Therapy Work Phone: Start: 01-12-2025 End: 01-12-[address] Lynn Christensen MD -[facility] Work Phone: Start: 01-12-2025 End: 01-12-[address] Micah Díaz DO Work Phone: -[facility] Start: 01-11-[address] Monserrat Medeiros DPBrigitte -Physical Therapy Work Phone: Start: 01-07-2025 Non-patient / Non-visit Dr. Reginald casanova MD -[facility] Start: 01-07-2025 End: 01-07-[address] Micah Díaz DO Work Phone: -[facility] Services Start: 01-07-2025 End: 01-07-[address] Micah Díaz DO -Cardiovascular Services Work Phone: Start: 01-07-2025 End: 01-07-2025 ambulatory Micah Díaz Facility:[place] Start: 01-05-2025 End: 01-05-[address] [facility] Work Phone: Start: 01-05-2025 End: 01-05-[address] Micah Díaz DO Work Phone: [facility] Start: 12-29-2024 End: 12-29-[address] [facility]ensen [facility] Work Phone: Start: 12-29-2024 End: 12-29-[address] Micah Díaz DO Work Phone: [facility] Start: 12-28-[address] Monserrat Medeiros DPM -Physical Therapy Work Phone: Start: 12-22-2024 End: 12-22-[address] Lynn Christensen [facility] Work Phone: Start: 12-22-2024 End: 12-22-[address] Micah Díaz DO Work Phone: -[facility] Start: 12-21-[address] Monserrat Medeiros DPBrigitte -Physical Therapy Work Phone: Start: 12-15-2024 End: 12-15-[address] Lynn Christensen [facility] Work Phone: Start: 12-15-2024 End: 12-15-[address] Micah Díaz DO Work Phone: [facility] Start: 12-07-2024 End: 12-07-[address] Lynn Christensen MD -[facility] Work Phone: Start: 12-07-2024 End: 12-07-[address] Micah Díaz DO Work Phone: -[facility] Start: 11-17-2024 ambulatory Micah Díaz Facility: [facility] Start: 11-17-2024 Non-patient / Non-visit Dr. Lynn negron MD -[facility] Work Phone: Start: 10-12-2024 Non-patient / Non-visit Dr. Lynn negron MD -[facility] Work Phone: Start: 09-15-2024 End: 09-15-[address] Micah Díaz DO Work Phone: [place] Work Phone: Start: 09-15-2024 End: 09-15-[address] Christiano Medeiros DPM [facility] Work Phone: Start: 09-15-2024 End: 09-15-2024 ambulatory Christiano Medeiros Facility:[place] Start: 08-31-2024 End: 08-31-[address] Matti Camarillo DO -Laboratory Work Phone: Start: 08-31-2024 End: 08-31-2024 ambulatory Matti Camarillo Facility:[place] Start: 07-23-2024 Non-patient / Non-visit Milka PRIEST -[facility] Work Phone: Start: 07-23-2024 ambulatory Micah [facility] Facility: [facility] Start: 07-22-2024 Non-patient / Non-visit Dr. Dillard [facility] -[facility] Start: 07-22-2024 End: 07-22-[address] Micah Díaz DO Work Phone: [place] Work Phone: Start: 07-22-2024 End: 07-22-2024 Patient encounter procedure Milka EDGARC -Cardiovascular Services Work Phone: Start: 07-22-2024 End: 07-22-2024 ambulatory Micah Díaz Facility:[place] Start: 07-20-2024 End: 07-20-2024 Patient encounter procedure Milka PRIEST -[facility] Work Phone: Start: 07-20-2024 End: 07-20-2024 ambulatory Micah Bre Facility:[facility] Start: 06-28-2024 End: 06-28-[address] Micah Díaz DO Work Phone: [place] Work Phone: Start: 06-28-2024 End: 06-28-[address] Micah Díaz DO -Laboratory, [facility] Start: 06-28-2024 End: 06-28-2024 ambulatory Micah Díaz Facility:[place] Start: 06-17-2024 End: 06-17-[address] Micah Díaz DO Work Phone: [place] Work Phone: Start: 06-17-2024 End: 06-17-[address] [facility] Start: 06-17-2024 End: 06-17-2024 ambulatory Christiano Medeiros Facility:[place] Start: 06-08-2024 End: 06-08-[address] Micah Díaz DO Work Phone: [place] Work Phone: Start: 06-08-2024 End: 06-08-[address] Rene Lomax MD -Physical Therapy Work Phone: Start: 06-08-[address] Rene Manriquez i, MD -Physical Therapy Work Phone: Start: 05-19-2024 End: 05-19-2024 ambulatory CASSY ZUNIGA Facility:[facility] Start: 05-19-2024 Encounter for gynecological examination (general) (routine) without abnormal findings CASSY ZUNIGA [facility] Start: 05-19-2024 End: 05-19-2024 Patient encounter status Screen Wstr [facility] Start: 05-19-2024 End: 05-19-2024 Subsequent hospital visit by physician Screen Mammo [facility] Wstr Mammogram Comment on above: Encounter for gyneco logical examination (general) (routine) without abnormal findings [Z01.419] Start: 05-18-2024 End: 05-18-2024 ambulatory CASSY ZUNIGA Facility:[facility] Start: 05-18-2024 End: 05-18-2024 Patient encounter procedure Cassy Zuniga MD Work Phone: OB/Gynecology Comment on above: Encounter for gyneco logical examination (general) (routine) without abnormal findings (Primary Dx); Encounter for screening mammogram for breast cancer Start: 05-18-2024 End: 05-18-2024 Patient encounter status Cassy Zuniga MD Work Phone: [facility] Start: 04-27-2024 End: 04-27-[address] [facility] Start: 04-27-2024 End: 04-27-2024 ambulatory Matti Camarillo Facility:[place] Start: 03-26-2024 End: 03-29-2024 Telephone encounter Cassy Zuniga MD Work Phone: OB/Gynecology Comment on above: Patient Question Start: 07-01-2023 End: 07-01-[address] Micah Díaz Work Phone: [place] Work Phone: Start: 07-01-2023 End: 07-01-[address] Micah Díaz Work Phone: [place] Work Phone: Start: 04-25-2023 End: 04-25-[address] Micah Díaz Work Phone: [facility] Work Phone: Start: 04-21-2023 End: 04-21-2023 Subsequent hospital visit by physician [facility] Work Phone: Radiology Comment on above: Left wrist pain [M25 .532] Start: 04-04-2023 Documentation procedure Mammog minda Coordinator [facility] Start: 04-04-2023 Letter encounter Mammography Coordinator [facility] Department Start: 03-31-2023 Telephone encounter Cassy Zuniga MD Work Phone: [facility] Comment on above: Orders Start: 02-28-2023 End: 02-28-[address] Micah Díaz Work Phone: [place] Work Phone: Start: 02-28-2023 End: 02-28-[address] Micah Díaz Work Phone: [place] Work Phone: Start: 01-30-2023 Non-patient / Non-visit Dr. Balbir Díaz Work Phone: [facility] Start: 01-30-2023 End: 01-30-[address] Micah Díaz Work Phone: [place] Work Phone: Start: 01-30-2023 End: 01-30-[address] Micah Díaz Work Phone: [place] Work Phone: Start: 01-07-2023 End: 01-07-[address] Micah Díaz Work Phone: [facility] Work Phone: Start: 12-31-2022 End: 12-31-[address] Micah Díaz Work Phone: [facility] Work Phone: Start: 12-24-2022 Non-patient / Non-visit Dr. Balbir Díaz Work Phone: [facility] Start: 12-24-2022 End: 12-24-2022 Admission to same day surgery center Dr. Micah Díaz Work Phone: [place]/Special Procedures Work Phone: Start: 12-24-2022 End: 12-24-[address] Micah Díaz Work Phone: [place] Work Phone: Start: 12-23-2022 End: 12-23-[address] Micah Díaz Work Phone: [place] Work Phone: Start: 12-23-2022 End: 12-23-[address] Micah Díaz Work Phone: [place]-Laboratory Work Phone: Start: 12-01-2022 Non-patient / Non-visit Dr. Balbir Díaz Work Phone: [facility] Start: 11-01-2022 Non-patient / Non-visit Dr. Balbir Díaz Work Phone: [facility] Start: 11-01-2022 Non-patient / Non-visit Dr. Balbir Díaz Work Phone: [facility] Start: 11-01-2022 End: 11-01-2022 Admission to same day surgery center Dr. Micah Díaz Work Phone: [place] Procedures Work Phone: Start: 10-16-2022 End: 10-16-[address] Micah Díaz Work Phone: [place] Work Phone: Start: 10-16-2022 End: 10-16-[address] Micah Díaz Work Phone: [place]-Physical Therapy Work Phone: Start: 10-09-2022 End: 10-09-[address] Micah Díaz Work Phone: [facility] Work Phone: Start: 10-03-2022 End: 10-03-[address] Micah Díaz Work Phone: [facility] Work Phone: Start: 06-12-2022 Non-patient / Non-visit Dr. Balbir Díaz Work Phone: [facility] Start: 2022 Non-patient / Non-visit Dr. Balbir Díaz Work Phone: [facility] Start: [address] Micah Díaz Work Phone: [place] Start: 06-10-2022 End: 06-10-[address] Micah Díaz Work Phone: [place] Work Phone: Start: 06-10-2022 End: 06-10-[address] Micah Díaz Work Phone: [place]-Radiology, [facility] Start: 06-03-[address] Micah Díaz Work Phone: [place]-Physical Therapy Start: 05-31-2022 End: 05-31-[address] Micah Díaz Work Phone: [facility] Start: 04-24-2022 End: 04-24-2022 ambulatory [place] Work Phone: Start: 04-24-2022 End: 04-24-2022 [facility] Start: 04-22-2022 End: 04-22-2022 ambulatory [place] Work Phone: Start: 04-22-2022 End: 04-22-2022 [facility] Hien Vanegas [facility] Start: 03-27-2022 End: 03-27-2022 ambulatory [facility] Facility:[facility] Start: 03-26-2022 Documentation procedure Mammog minda Coordinator [facility] Start: 03-26-2022 Letter encounter Mammography Coordinator [facility] Department Start: 03-25-2022 End: 03-25-2022 Subsequent hospital visit by physician Screen Mammo [facility] Wstr Mammogram Comment on above: Encounter for screen ing mammogram for malignant neoplasm of breast [Z12.31] Start: 03-22-2022 Telephone encounter Cassy Zuniga MD Work Phone: OB/Gynecology Comment on above: Orders Start: 02-27-2022 End: 02-27-2022 ambulatory [place] Work Phone: Start: 02-27-2022 End: 02-27-2022 Patient encounter procedure [place] Start: 02-07-2022 Telephone encounter Roxane Pineda MD Work Phone: [facility] Comment on above: Medication Problem Start: 01-18-2022 End: 01-18-2022 ambulatory [place] Work Phone: Start: 01-18-2022 End: 01-18-2022 [facility] Start: 01-01-2022 Telephone encounter Roxane Pineda MD Work Phone: [facility] Comment on above: Medication Problem Start: 12-26-2021 End: 12-26-2021 ambulatory [facility] Facility:[facility] Start: 12-18-2021 Telephone encounter Roxane Pineda MD Work Phone: [facility] Comment on above: Patient Question Start: 12-10-2021 ambulatory MICAH DÍAZ Facilit y:[facility] Start: 11-13-2021 Telephone encounter Roxane Pineda [...] Telephone encounter Roxane Pineda MD Work Phone: [facility] Comment on above: FYI-No Action Needed ; Medication Problem Start: 09-26-2021 End: 09-26-2021 ambulatory MICAH DÍAZ Facility:[facility] Start: 09-26-2021 End: 09-26-2021 ambulatory MICAH Moy [facility] Facility:[facility] Start: 09-26-2021 End: 09-26-2021 Patient encounter procedure [facility] Work Phone: Urology Comment on above: Urgency of urination (Primary Dx) 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 Micah Díaz Work Phone: [place]-[facility], [place] Start: 07-24-2021 End: 07-24-2021 ambulatory MICAH JOEUTZMAN Facility:[facility] Start: 07-24-2021 End: 07-24-2021 Patient encounter procedure Roxane Pineda MD Work Phone: Urology Comment on above: Vaginal enterocele ( Primary Dx); Urge incontinence; Urgency of urination; Rectocele Start: 05-14-2021 Non-patient / Non-visit Dr. Balbir Díaz Work Phone: [place] Start: 05-14-2021 End: 05-14-[address] Micah Díaz Work Phone: [place] Start: 05-08-2021 End: 05-08-[address] Micah Díaz Work Phone: [facility] Start: 10-22-2010 End: 10-24-2010 Patient encounter status Cassy Zuniga MD Work Phone: [facility] Work Phone: Procedures Date Procedure [...] wrist complete minimum 3 views Saira Moore APRN.WHEEL ALIGNMENT TECHNICIAN Work Phone: Start: 2022 Cardiovascular stres s [...] PA-C Work Phone: Start: 11-03-2013 End: 11-08-2013 [facility] Ileana Beltrán PA-C Work Phone: Start: 11-03-2013 End: 11-03-2013 Follow Up Appt 6 months Ileana keith PA-C Work Phone: Start: 04-30-2013 End: 04-30-2013 Follow Up Appt 6 months Brigitte Allan Start: 04-30-2013 End: 04-30-2013 DAMASO Fairchild MD Start: 09-29-2012 End: 09-29-2012 TWIN Beltrán PA-C Work Phone: Start: 09-29-2012 End: 10-01-2012 [facility] Ileana Beltrán PA-C Work Phone: Start: 09-29-2012 End: 09-29-2012 Follow Up Appt 6 months Ileana keith PA-C Work Phone: Start: 10-02-2011 End: 10-02-2011 Follow Up Appt 1 year Angel Fairchild MD Plan of Treatment Date Care Activity Detail Author Start: 02-02-2025 End: 02-02-2025 Patient encounter procedure Nocturia -[facility] Work Phone: Start: 01-26-2025 End: 01-26-2025 Patient encounter procedure Nocturia -[facility] Work Phone: Start: 01-11-2025 Registered Recurring Registered Recu rring -Physical Therapy Work Phone: Start: 01-07-2025 Non-patient / Non-visit Non-patient / Non-visit -[facility] Start: 05-19-2024 End: 05-19-2024 Patient encounter procedure 05/19/2024 1:50 PM EST Appointment Mammogram [address] [place] [address] Encounter for gynecological examination (general) (routine) without abnormal findings [Z01.419]; Encounter for screening mammogram for breast cancer [Z12.31] Mammogram Comment on above: Encounter for gyneco logical examination (general) (routine) without abnormal findings [Z01.419]; Encounter for screening mammogram for breast cancer [Z12.31] Start: 05-12-2024 End: 05-12-2024 Patient encounter procedure 05/12/2024 3:20 PM EST Office Visit OB/Gynecology [address] [place] [address] Cassy Zuniga MD [address] [place] [address] Pelvic/breast exam OB/Gynecology Comment on above: Pelvic/breast exam Start: 04-14-2024 Advance Directive Discussion Advance Directive Discussion [facility] Start: 12-14-2023 Covid-19 Vaccine () Covid-19 Vaccine () [facility] Start: 12-14-2023 Covid-19 Vaccine () Covid-19 Vaccine () [facility] Start: 12-14-2023 Influenza vaccination Influenza Vacc ine (#1) [facility] Start: 05-25-2023 Covid-19 Vaccine () Covid-19 Vaccine () [facility] Start: 04-14-2023 Advance Directive Discussion Advance Directive Discussion [facility] Start: 04-14-2023 Behavioral Health Screening Behavioral Health Screening [facility] Start: 03-27-2023 BP CONTROLLED (<130/80) BP CONTROLLE D (<130/80) [facility] Start: 12-24-2022 Patient discharge [facility] Start: 12-13-2022 Covid-19 Vaccine ( season) Covid-19 Vaccine ( season) [facility] Start: 12-13-2022 Influenza vaccination Influenza Vacc ine (#1) [facility] Start: 11-01-2022 Patient discharge [facility] Start: 10-03-2022 Patient referral [facility] Work Phone: Start: 09-26-2022 BP CONTROLLED (<130/80) BP CONTROLLE D (<130/80) [facility] Start: 04-14-2022 Advance Directive Discussion Advance Directive Discussion [facility] Start: 04-14-2022 Depression Assessment Depression Ass essment [facility] Start: 12-13-2021 Influenza vaccination INFLUENZA (#1) [facility] Start: 09-20-2021 COVID-19 VACCINE (5 - Booster for Pfizer series) COVID-19 VACCINE (5 - Booster for Pfizer series) [facility] Start: 05-20-2021 COVID-19 VACCINE (4 - Booster for Pfizer series) COVID-19 VACCINE (4 - Booster for Pfizer series) [facility] Start: 04-14-2021 ADVANCE DIRECTIVE DISCUSSION ADVANCE DIRECTIVE DISCUSSION [facility] Start: 04-14-2021 DEPRESSION ASSESSMENT DEPRESSION ASS ESSMENT [facility] Start: 2019 RSV Vaccine (1 - 1-d ose 75+ series) RSV Vaccine (1 - 1-dose 75+ series) [facility] Start: 05-22-2017 End: 05-22-2017 Appointment Appointment [facility] Work Phone: Start: 05-21-2016 End: 05-21-2016 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 [facility] Work Phone: Start: 05-21-2016 End: 05-21-2016 Follow Up Appt 1 year Follow Up Appt 1 year [facility] Work Phone: Start: 07-12-2015 End: 07-12-2015 Physical Therapy General Physical Therapy General Rehab Services, [address] [place] [address], [id number] [facility] Work Phone: Start: 05-19-2015 End: 05-19-2015 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 CLERK [facility] Work Phone: Start: 05-19-2015 End: 05-19-2015 Follow Up Appt 1 year Follow Up Appt 1 year [facility] Work Phone: Start: 12-08-2014 End: 12-08-2014 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 CLERK [facility] Work Phone: Start: 12-08-2014 End: 12-08-2014 Ecg routine ecg w/least 12 lds w/i&r EKG (In office) [facility] Work Phone: Start: 12-08-2014 End: 12-08-2014 Follow Up Appt 6 months Follow Up Appt 6 months [facility] Work Phone: Start: 12-08-2014 End: 12-08-2014 Follow Up Appt Other Follow Up Appt Other [facility] Work Phone: Start: 05-12-2014 End: 05-12-2014 Follow Up Appt 6 months Follow Up Appt 6 months [facility] Work Phone: Start: 05-12-2014 End: 05-12-2014 MMM MMM [facility] Work Phone: Start: 11-03-2013 End: 11-03-2013 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 CLERK TWIN [facility] Work Phone: Start: 11-03-2013 End: 11-03-2013 Echocardiography Echocardiogram (complete) [facility] Work Phone: Start: 11-03-2013 End: 11-03-2013 Follow Up Appt 6 months Follow Up Appt 6 months [facility] Work Phone: Start: 10-28-2013 DIABETES SCREEN DIABETES SCREEN [facility] Start: 10-28-2013 Diabetes Screening Diabetes Screenin g [facility] Start: 04-30-2013 End: 04-30-2013 Follow Up Appt 6 months Follow Up Appt 6 months [employer] Work Phone: Start: 04-30-2013 End: 04-30-2013 MMM MMM [employer] Work Phone: Start: 09-29-2012 End: 09-29-2012 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 CLERK [employer] Work Phone: Start: 09-29-2012 End: 09-29-2012 Echocardiography Echocardiogram (complete) [employer] Work Phone: Start: 09-29-2012 End: 09-29-2012 Follow Up Appt 6 months Follow Up Appt 6 months [employer] Work Phone: Start: 10-28-2011 Pneumococcal Vaccine : 50+ (2 of 2 - PCV) Pneumococcal Vaccine: 50+ (2 of 2 - PCV) [facility] Start: 10-28-2011 Pneumococcal Vaccine : 65+ (2 - PCV) Pneumococcal Vaccine: 65+ (2 - PCV) [facility] Start: 10-28-2011 Pneumococcal Vaccine : 65+ (2 of 2 - PCV) Pneumococcal Vaccine: 65+ (2 of 2 - PCV) [facility] Start: 10-28-2011 PNEUMOCOCCAL: 65+ (2 - PCV) PNEUMOCOCCAL: 65+ (2 - PCV) [facility] Start: 10-02-2011 End: 10-02-2011 Follow Up Appt 1 year Follow Up Appt 1 year [employer] Work Phone: Start: 2009 BONE DENSITY BONE DENSITY [facility] Start: 2009 Bone Density Screening Bone Density Screening [facility] Start: 2009 Screening for osteoporosis Bone Dens ity Screening [facility] Start: 2004 RSV Vaccine (1 - 1-d ose 60+ series) RSV Vaccine (1 - 1-dose 60+ series) [facility] Start: 1994 SHINGRIX VACCINE (1 of 2) KUMAR GRIX VACCINE (1 of 2) [facility] Start: 1963 Urine microalbumin profile [facility] Start: 1962 ANNUAL PCP TEAM MEASURING CLERK CALLIE DISEASE VISIT ANNUAL PCP TEAM CHRONIC DISEASE VISIT [facility] Start: 1962 BP CONTROLLED (<130/80) BP CONTROLLE D (<130/80) [facility] Start: 1962 Depression Screening Depression Scre ening [facility] Start: 1962 HEPATIT[facility] Start: 1962 Hepatitis C screening Hepatitis C [facility] Start: 1956 Adult depression scr eening assessment DEPRESSION SCREENING [facility] End: 06-17-2025 DBT Breast - bilateral screening KAJAL SCREENING W SYBIL Radiology Routine Encounter for gynecological examination (general) (routine) without abnormal findings Encounter for screening mammogram for breast cancer 1 Occurrences starting 05/18/2024 until 06/17/2025 [facility] Work Phone: Comment on above: 1 Occurrences starti ng 05/18/2024 until 06/17/2025 DBT Breast - bilater al screening KAJAL SCREENING W SYBIL Radiology Routine Encounter for gynecological examination (general) (routine) without abnormal findings Encounter for screening mammogram for breast cancer 05/19/2024 2:22 PM EST [facility] Work Phone: H&P for surgery H&P FOR SURGERY Procedures Routine Prolapse of vaginal vault after hysterectomy Stress incontinence Rectocele Ordered: 10/13/2021 [facility] Work Phone: Comment on above: Ordered: 10/13/2021 End: 04-21-2023 KAJAL SCREENING KAJAL SCREENING Radiology Routine Encounter for screening mammogram for malignant neoplasm of breast 1 Occurrences starting 03/22/2022 until 04/21/2023 [facility] Work Phone: Comment on above: 1 Occurrences starti ng 03/22/2022 until 04/21/2023 End: 04-25-2025 MG Breast Screening KAJAL SCREENING Radiology Routine Encounter for screening mammogram for malignant neoplasm of breast 1 Occurrences starting 03/29/2024 until 04/25/2025 [facility] Work Phone: Comment on above: 1 Occurrences starti ng 03/29/2024 until 04/25/2025 Patient referral [facility] Work Phone: URODYNAMICS URODYNAMICS Proc edures Routine Urge incontinence Ordered: 09/20/2021 [facility] Work Phone: Comment on above: Ordered: 09/20/[facility]21 [facility] [place] Immunizations Immunization Date Immunization Notes Care Provider Fa cility 01-14-2023 influenza virus vacc ine, unspecified formulation Xr [place] Work Phone: [facility] 12-21-2021 influenza virus vacc ine, unspecified formulation Screen Wstr [facility] 12-25-2020 influenza, high-dose , quadrivalent vaccine (FLUZONE HIGH DOSE QUADRIVALENT) Roxane Pineda MD Work Phone: [facility] 10-27-2010 pneumococcal polysaccharide vaccine, 23 valent Roxane Pineda MD Work Phone: [facility] Payers Date Payer Category Payer Self-pay [id number] 2017 Private Health Insurance [employer] A ETNA MEDICARE SUPPLEMENT [id number] 2017-Present [phone] [address] [address] [place] [address] Indemnity [id number] 2017 Private Health Insurance [id number] 2017 Private Health Insurance [facility] [id number] 2011 Unknown [id number] 2009 Medicare MEDICARE MEDICAR E A AND B [id number] 2009-Present [phone] [address] [address] [place] [address] Medicare [id number] 2009 Medicare MEDICARE MEDICAR E A AND B [id number] 2009-Present [phone] [address] [address] [place] [address] Medicare [id number] 2009 Medicare [id number] Unknown [id number] 2.16.840.1.675495.3.579 .2.462 Unknown [id number] 2.16.840.1.902581.3.579 .2.462 Unknown [id number] 2.16.840.1.287876.3.579 .2.462 Unknown [id number] 2.16.840.1.079082.3.579 .2.462 Unknown [id number] 2.16.840.1.948235.3.579 .2.462 Unknown [id number] 2.16.840.1.744285.3.579 .2.462 Unknown [id number] 2.16.840.1.786676.3.579 .2.462 Unknown [id number] 2.16.840.1.744111.3.579 .2.462 Unknown [id number] 2.16.840.1.251450.3.579 .2.462 Unknown [id number] 2.16.840.1.338399.3.579 .2.462 Unknown [id number] 2.16.840.1.081442.3.579 .2.462 Unknown [id number] 2.16.840.1.759693.3.579 .2.462 Unknown [id number] 2.16.840.1.208268.3.579 .2.462 Unknown [id number] 2.16.840.1.857802.3.579 .2.462 Unknown [id number] 2.16.840.1.864440.3.579 .2.462 Unknown [id number] 2.16.840.1.360550.3.579 .2.462 Unknown [id number] 2.16.840.1.192769.3.579 .2.462 Unknown [id number] 2.16.840.1.742535.3.579 .2.462 Unknown [id number] 2.16.840.1.985907.3.579 .2.462 Unknown [id number] 2.16.840.1.558886.3.579 .2.462 Unknown [id number] 2.16.840.1.285330.3.579 .2.462 Unknown [id number] 2.16.840.1.539723.3.579 .2.462 Unknown [id number] 2.16.840.1.555678.3.579 .2.462 Unknown [id number] 2.16.840.1.180357.3.579 .2.462 Unknown [id number] 2.16.840.1.999380.3.579 .2.462 Unknown [id number] 2.16.840.1.397294.3.579 .2.462 Social History Date Type Detail Facility Start: 10-22-2010 End: 04-25-2023 Tobacco smoking status [facility] Never smoked tobacco [facility] Work Phone: Start: 07-24-2021 End: 05-18-2024 Alcohol intake Current drinker of alcohol (finding) [facility] Start: 04-01-2019 History SDOH Alcohol Frequency 2 [facility] Start: 04-01-2019 History SDOH Alcohol Std Drinks 1 [facility] Start: 02-24-2018 History SDOH Alcohol Comment Socially [facility] Start: 04-01-2019 History SDOH Social Connections Phone 5 [facility] Start: 04-01-2019 History SDOH Social Connections Get Together 4 [facility] Start: 04-01-2019 History SDOH Physica l Activity DPW 0 [facility] Start: 1945 Sex Assigned At Not on file [facility] Start: 05-08-2021 End: 04-25-2023 Tobacco smoking status NHIS Unknown if ever smoked [place] Start: 1945 Sex Assigned At Female [facility] Start: 10-22-2010 End: 12-26-2021 Tobacco use and exposure Smokeless tobacco non-user [facility] Start: 11-30-2021 End: 12-10-2021 Exposure to SARS-CoV-2 (event) Not sure [facility] Start: 04-01-2019 End: 05-18-2024 History of Social function [facility] Start: 04-01-2019 End: 05-18-2024 Social connection and isolation panel [facility] Do you belong to any clubs or organizations such as restorationist groups, unions, fraternal or athletic groups, or school groups? Yes [facility] Are you now , , , , never or living with a partner? [facility] How often to you hav e a drink containing alcohol? Monthly or less [facility] How many standard dr inks containing alcohol do you have on a typical day? 1 or 2 [facility] How often do you hav e 6 or more drinks on 1 occasion? Never [facility] How hard is it for y ou to pay for the very basics like food, housing, medical care, and heating Not very hard [facility] Do you feel stress - tense, restless, nervous, or anxious, or unable to sleep at night because your mind is troubled all the time - these days [OSQ] Not at all [facility] (I/We) worried wheth er (my/our) food would run out before (I/we) got money to buy more. Never true [facility] In the past 12 month s, has lack of transportation kept you from medical appointments or from getting medications? No [facility] Start: 06-29-2024 End: 07-27-2024 Sex Female (finding) [place] Medical Equipment Procedure Code Equipment Code Equipment Original Text Equipment Identifier Dates Valve Aort 23mm C-E Prm [facility] - [id number] Start: 10-23-2010 Comment on above: Description: CE 2700 -23mm used for aortic valve replacement [facility] Ppro [id number] Start: 12-10-2021 Kenyatta Horta Bx/5 [id number] Start: 12-10-2021 Clinical Notes 10-23-2010 to 01-26-2025 Note Date & Type Note Facility 01-26-2025 Progress note [facility] 01-20-2025 Progress note [facility] 01-19-2025 Discharge summary Note Date/Time January 19, 2025 5:17pm [place] [facility] [address] [place] [address] / REHABILITATION SERVICES DISCHARGE SUMMARY MR#: [id number] Acct: [id number] Name: FABRICE MOON Rep #: [id number] [...] please feel free to call me at [phone]. Thank you for the referral of thispatient. Sincerely, Maryana Guerrero, SPENCER Balance/Gait/Functional tests Balance/Special Test Scores Lower Extremity Functional Score: 46 Improvement % Improvement: 65 <Electronically signed by Maryana Guerrero MPT> 01/19/25 2462 CC: ANKIT Medeiros; Dr. Micah Díaz, DO ~ Signed [place] Work Phone: 1(687) 623-476210-08-2025 Discharge summary [place] [facility] [address] [place] [address] [address] [place] [address] / REHABILITATION SERVICES DISCHARGE SUMMARY MR#: [id number] Acct: [id number] Name: FABRICE MOON Rep #: [id number] [...] please feel free to call me at [phone]. Thank you for the referral of thispatient. Sincerely, Maryana Guerrero, MPT Balance/Gait/Functional tests Balance/Special Test Scores Lower Extremity Functional Score: 46 Improvement % Improvement: 65 01/19/25 8707 CC: ANKIT Medeiros; Dr. Micah Díaz, DO ~ Signed [place]08-26-2025 Progress note Author Lynn Christensen [facility] Note Date/Time December 07, 2024 9: 05pm [facility] [address], [address] [place] [address] OFFICE VISIT Date of Service: 12/07/24 MR#: [id number] Acct: [id number] Name: FABRICE MOON Rep #: [id number] : 1945 Provider: Dr. 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 Is patient in pain?: No [...] healthy appearing, comfortable and no acute distress [facility] Head: normocephalic and atraumatic Ears: hearing [...] Cosigner Signature: Date (if applicable) CC: ~ [facility]08-26-2025 Evaluation note* Diagnosis Onset Date Resolution Status Admit Date Nocturia acute December 07, 025 2:44pm Urge incontinence acute December 07, 2024 2:44pm [facility] Work Phone: 1(613) 629-387408-26-2025 Evaluation note* Diagnosis Onset Date Resolution Status Admit Date Nocturia acute December 07, 2 025 2:44pm Urge incontinence acute December 07, 2024 2:44pm Nocturia acute December 15, 2024 10:58am Urge incontinence acute Septemb er 2024 10:58am [facility] Work Phone: 1([phone]) 760-107608-26-2025 Evaluation note* Diagnosis Onset Date Resolution Status Admit Date Nocturia acute December 07, 2 025 2:44pm Urge incontinence acute December 07, 2024 2:44pm Nocturia acute December 15, 2024 10:58am Urge incontinence acute Septemb er 2024 10:58am Nocturia acute December 10:50am Urge incontinence acute Septemb er 2024 10:50am [facility] Work Phone: 1(328) 789-861308-26-2025 Evaluation note* Diagnosis Onset Date Resolution Status Admit Date Nocturia acute December 07, 025 2:44pm Urge incontinence acute December 07, 2024 2:44pm Nocturia acute December 15, 2024 10:58am Urge incontinence acute Septemb er 2024 10:58am Nocturia acute December 10:50am Urge incontinence acute Septemb er 2024 10:50am Nocturia acute December 11:15am Urge incontinence acute Septemb er 2024 11:15am [facility] Work Phone: 1(793) 506-355508-26-2025 Evaluation note* Diagnosis Onset Date Resolution Status [...] Urge incontinence acute Septemb er 2024 10:50am [facility] Work Phone: 1(604) 367-895808-26-2025 Evaluation note* Diagnosis Onset Date Resolution Status [...] Urge incontinence acute January 12, 2025 10:50am [facility] Work Phone: 1(233) 799-753608-26-2025 Evaluation note* Diagnosis Onset Date Resolution Status [...] 23, 2010 resolved January 20, 2025 10:56am [facility] Work Phone: 1(320) 672-139808-26-2025 Evaluation note* Diagnosis Onset Date Resolution Status [...] (urinary tract infection) acute February 02 10:49am [place] Work Phone: 1(911) 737-300504-08-2025 Evaluation note* Diagnosis Onset Date Resolution Status Admit Date Essential hypertension acute Ap 2024 11:18am PAF (paroxysmal atrial fibrillation) acute July 20, 2024 11:18am Hyperlipidemia chronic July 20, 2024 11:18am History of aortic valve replacement with bioprosthetic valve October 23, 2010 resolved July 20 11:18am [place] Work Phone: 1(978) 991-491602-25-2025 Discharge summary Author Jamal Glover [place] Note Date/Time June 08, 2024 6:00pm [facility] [address] [place] [address] / REHABILITATION SERVICES DISCHARGE SUMMARY MR#: [id number] Acct: [id number] Name: FABRICE MOON Rep #: [id number] [...] please feel free to call me at [phone]. Thank you for the referral of thispatient. Sincerely, Jamal Glover, PT, Cert MDT, OCS Balance/Gait/Functional tests Balance/Special Test Scores Oswestry Low Back Score: 29 Improvement % Improvement: 20 <Electronically signed by Jamal Glover PT, Cert. MDT, OCS> 07/27/24 0810 CC: Dr. Rene Lomax MD; Dr. Micah Díaz, DO ~ CAROLA Signed [place] Work Phone: 1(217) 551-448902-25-2025 Discharge summary [facility] [facility] [address] [place] [address] [address] [place] [address] / REHABILITATION SERVICES DISCHARGE SUMMARY MR#: [id number] Acct: [id number] Name: FABRICE MOON GRACE Rep #: [id number] [...] please feel free to call me at [phone]. Thank you for the referral of thispatient. Sincerely, Jamal Glover, PT, Cert MDT, OCS Balance/Gait/Functional tests Balance/Special Test Scores Oswestry Low Back Score: 29 Improvement % Improvement: 20 07/27/24 0810 CC: Dr. Rene Lomax MD; Dr. Micah Díaz, DO ~ JLA Signed [place]02-05-2025 History of Present illness Narrative* Ines Ortiz [...] PATIENT PRESENTS WITH AN IMPLANTABLE OR ATTACHED CLOTH PACKER: No RADIOLOGY DEPARTMENT: Mammography PERIPHERAL IV DATA: Not applicable SIGNED BY: Parag Krishna May 19, 2024 1:40 PM documented in this encounterSumma Health [facility]02-[facility]-2025 NoteHNO ID: [id number] Author: INES ORTIZ Mammo Tech Service: ? Author Type: Bleaching Supervisor Type: Progress Notes Filed: 05/19/2024 13:41 Note [...] PATIENT PRESENTS WITH AN IMPLANTABLE OR ATTACHED CLOTH PACKER: No RADIOLOGY DEPARTMENT: Mammography PERIPHERAL IV DATA: Not applicable SIGNED BY: Parag Krishna May 19, 2024 1:40 [facility]02-04-2025 NoteHNO ID: [id number] Author: CASSY ZUNIGA MD Service: ? Author Type: Physician Type: Progress Notes Filed: 05/18/2024 14:25 Note Text: Jennifer is a 78 year old who presents for an annual gynecologic exam with complaints, OAB, sees Dr. Christensen for urogyn. . 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 As applicable, any other physician, advance practice provider, medical student, or other health professional student that will be observing or involved in the sensitive examination for educational or training purposes was discussed with the Patient or Authorized Career Education Teacher. The Patient or Authorized Career Education Teacher has agreed to proceed with the sensitive [...] external genitalia normal, normal Bartholin's glands, urethra, [place]'s glands, no vulvar lesions, good vaginal support, physiologic discharge present, normal appearing perineal body and perianal region, cervix surgically absent BIMANUAL: no adnexal masses, non-tender, and uterus surgically absent RECTOVAGINAL: deferred. ASSESSMENT/PLAN: 1) Health maintenance: Pap/HPV screening no longer needed Mammogram ordered no need for annual exams. f/u PRN 2) Follow up one year or sooner as needed Cassy Zuniga [facility]02-04-2025 History of Present illness Narrative* Cassy Zuniga MD - 05/18/2024 1:48 PM EST Jennifer is a 78 year old who presents for an annual gynecologic exam with complaints, OAB, sees Dr. Christensen for urogyn. . 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 As applicable, any other physician, advance practice provider, medical student, or other health professional student that will be observing or involved in the sensitive examination for educational or training purposes was discussed with the Patient or Authorized Career Education Teacher. The Patient or Authorized Career Education Teacher has agreed to proceed with the sensitive [...] external genitalia normal, normal Bartholin's glands, urethra, [place]'s glands, no vulvar lesions, good vaginal support, [...] needed Cassy Zuniga MD documented in this encounterSumma Health [facility]12-16-2024 Telephone encounter Note * Telephone Encounter - Bhumi Beavers RN - 03/29/2024 10:16 AM EST Pt notified and prefers to schedule pelvic/breast exam with RR since she has not been seen since 2020. Appt scheduled with RR 05/03/24. 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 Em Gusman RN [facility]01-08-2024 History of Present illness Narrative* Erica Hanson RT(R) - 04/21/2023 8:50 AM EST Radiology [...] 21, 2023 8:50 AM documented in this encounterSumma Health W[facility]12-22-2023 Miscellaneous Notes* Letter - Coordinator, Mammography - 04/04/2023 9:25 AM EST April 04, 2023 PID: [id number] Fabrice Moon [address] [place] [address] Dear Ms. Moon, We are pleased to [...] report will be kept on file at [facility] as part of your permanent medical record and are available for your continuing care. Thank you for allowing us to help in meeting your health care needs. Sincerely, Dr. Wilks Interpreting Radiologist [facility] (Normal over 40) documented in this encounterSumma Health Wad[facility]12-18-2023 Telephone encounter Note * Telephone Encounter - Margret Paris RN - 03/31/2023 2:12 PM EST Please contact patient to schedule mammogram and annual. Margret Paris RN [facility]12-18-2023 Miscellaneous Notes* Telephone Encounter - [...] schedule. Review and advise. documented in this encounterSumma Health Wad[facility]12-18-2023 Telephone encounter Note * Telephone Encounter - Margret Paris RN - 03/31/2023 1:51 PM EST Mammogram pended. Will have patient schedule annual as well. MARGRET PARIS RN [facility]12-18-2023 Telephone encounter Note* Telephone Encounter - Laurie Yeager - 03/31/2023 12:20 PM EST Patient verified by name and . She is requesting an Mammogram screening order be placed for her to schedule. Review and advise. [facility]09-12-2023 Procedure [facility]09-12-2023 Procedure [facility]08-21-2023 History and physical note Author Angel Fairchild [place] December 02, 2022 3:35pm Note Date/Time December 01, 2022 8: 54am [facility] Medical Records Department [address] [place] [address] History & Physical Exam 12/01/22 0852 MR#: [id number] Acct: [id number] Name: FABRICE MOON Rep #:[id number] : 1945 77 From: Angel Fairchild MD PCP: Dr. Micah Díaz, DO Status:PRE [facility] Location: 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 She was started on [...] Fairchild MD; Dr. Micah Díaz DO~ Signed [place] Work Phone: 1(335) 501-108912-14-2022 NoteHNO ID: [id number] Author: Roxane Pineda MD Service: ? Author [...] kg/m? ASSESSMENT/PLAN: (N39.41) Urge incontinence (primary encounter diagnosis)[facility]12-13-2022 Miscellaneous Notes* Letter - Mammography Coordinator - 03/26/2022 11:57 AM EST March 26, 2022 PID: [id number] Fabrice Moon [facility] [place] [address] Dear Ms. Moon, We are pleased to [...] report will be kept on file at [facility] as part of your permanent medical record and are available for your continuing care. Thank you for allowing us to help in meeting your health care needs. Sincerely, Dr. Galdamez Interpreting Radiologist [facility] (Normal over 40) documented in this encounterSumma Health W[facility]12-12-2022 History of Present illness Narrative* [...] 25, 2022 11:07 AM documented in this encounterSumma Health W[facility]12-09-2022 Miscellaneous Notes* Telephone Encounter - Cassy Zuniga MD - 03/22/2022 11:42 AM EST order placed. Cassy Zuniga MD * Telephone Encounter - Ghislaine Ibrahim - 03/22/2022 10:[address] order for mammography and route to schedulers so we may call patient back to arrange appointment. documented in this encounterSumma Health [facility]10-27-2022 Miscellaneous Notes* Telephone Encounter - [...] decline MAXIMINO appointment due to living in [place], and has no transportation Yesenia Herrera Cma documented in this encounterSumma Health W[facility]09-21-2022 Miscellaneous Notes* Addendum Note - [...] 12/26. Sveta Quintero RN documented in this encounterSumma Health Wad[facility] - [facility]09-14-2022 NoteHNO ID: [id number] Author: Roxane Pineda MD Service: ? 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 Austin Mitchell Ma documented in this encounterSumma Health W[facility]08-29-2022 NoteHNO ID: [id number] Author: Juany Soares APRN.[employer]ISH[employer]ASS Service: Anesthesiology Author Type: Nurse Rn Lactation Type: Anesthesia Procedure Notes Filed: 12/10/2021 3:20 PM Note Text: ANESTHESIOLOGY PROCEDURE NOTE Airway General Information Procedure Start Time/Medication Administration: 12/10/2021 2:18 PM Patient location during procedure: OR Timeout Performed Pre-procedure: timeout performed Consent Obtained: Yes Patient identity confirmed: arm band and patient Staffing Anesthesiologist: Abilio Scherer MD POLISHER BRASS: Juany Mellion, MARKETING REPRESENTATIVE.[employer]ASS Performed by: anesthesiologist Indications and Patient Condition [...] 1 Airway not difficult SIGNATURE: Juany Soares APRN.POLISHER BRASS PATIENT NAME: Fabrice Moon DATE: December 10, 2021 TIME: 3:17 PM CSN: [id number] Light [facility] Hospital08-02-2022 Miscellaneous Notes* Telephone Encounter - Austin Mitchell Ma - 11/13/2021 9:45 AM EDT Patient informed. Austin Mitchell Ma * Telephone Encounter - Roxane Pineda MD - 11/13/2021 9:29 AM EDT Yes that is fine * Telephone Encounter - Rzo Chand MA - 11/13/2021 9:21 AM EDT [...] Advise Roz Chand MA documented in this encounterSumma Health W[facility]08-01-2022 Miscellaneous Notes* Telephone Encounter - [...] 11/13/21 Thank you, Malgorzata documented in this encounterSumma Health W[facility]06-16-2022 Miscellaneous Notes* Telephone Encounter - Roz Chand MA - 09/27/2021 1:23 PM EDT Called Erin Ho (sister) to navigate her make an account with [facility] in order for Fabrice to received her medication thru mail order. If she has any issues she would need to contact [facility] at [phone]. The pharmacy already have the prescription in their system, that have been confirmed by myself. Roz Chand MA * Telephone Encounter - Natty Marcial Cma - 09/27/2021 10:26 AM EDT Patient child care director called stated the script for tolterodine that [facility], Erin stated that Patients account information was needed to help with the script, I have advised caregiver that the script was called in already, Account WYPDP, id # [id number] Natty Marcial Cma documented in this encounterSumma Health Wad[facility]06-15-2022 NoteHNO ID: [id number] Author: Roxane Pineda MD Service: ? Author [...] laparoscopic sacrocolpopexy, mid urethra (more content not included)...[facility]06-15-2022 NoteHNO ID: [id number] Author: Uri Capone RN Service: ? Author Type: Registered Nurse Type: Progress Notes Filed: 09/30/2021 8:22 AM Note Text: Fabrice Moon [id number] 1945 September 26, 2021 Diagnoses: Stress urinary [...] MD September 30, 2021 cc: Roxane Pineda [facility]06-15-2022 History of Present illness Narrative* Roxane Pineda [...] and possible posterior repair. documented in this encounterSumma Health W[facility]06-15-2022 History of Present illness Narrative* Uri Capone RN - 09/26/2021 12:05 PM EDT Fabrice Moon [id number] 1945 September 26, 2021 Diagnoses: Stress urinary [...] cc: Roxane Pineda MD documented in this encounterSumma Health Wad[facility] Center06-15-2022 Instructions* Patient Instructions* Uri Capone RN - 09/26/2021 9:31 AM EDT POST PROCEDURE INSTRUCTIONS aFbrice Moon September 26, 2021 Increase your fluid intake. FOLLOW UP APPOINTMENT: 09/26/21 at 1:45 pm with Roxane Pineda MD in the [address] [place] [address] office. WHEN TO CALL THE DOCTOR: If you develop fever (over 101 degrees) or chills. If you cannot urinate or empty your bladder. If you develop symptoms of a urinary tract infection such as burning or pain with urination, increased frequency of urination or foul smelling urine If you have any other questions or problems. Office phone number; [phone] documented in this encounterSumma Health Wad[facility]04-12-2022 NoteHNO ID: [id number] Author: Roxane Pineda MD Service: ? Author [...] Colonoscopy - EGD TR (more content not included)...[facility]04-12-2022 History of Present illness Narrative* Roxane [...] plan follow-up after urodynamics. documented in this encounterSumma Health Wad[facility] Center07-14-2011 History of Past illness Narrative* [...] of this encounter (statuses as of 07/24/2021) [facility] History of Past illness Narrative* [...] of this encounter (statuses as of 09/20/2021) [facility] History of Past illness Narrative* [...] of this encounter (statuses as of 09/26/2021) [facility] History of Past illness Narrative* [...] of this encounter (statuses as of 09/26/2021) [facility] History of Past illness Narrative* [...] of this encounter (statuses as of 09/27/2021) [facility] History of Past illness Narrative* [...] of this encounter (statuses as of 10/13/2021) [facility] History of Past illness Narrative* [...] of this encounter (statuses as of 11/12/2021) [facility] History of Past illness Narrative* [...] of this encounter (statuses as of 11/13/2021) [facility] History of Past illness Narrative* [...] of this encounter (statuses as of 12/18/2021) [facility] History of Past illness Narrative* [...] of this encounter (statuses as of 01/02/2022) [facility] History of Past illness Narrative* [...] of this encounter (statuses as of 02/07/2022) [facility] History of Past illness Narrative* [...] of this encounter (statuses as of 03/22/2022) [facility] History of Past illness Narrative* [...] of this encounter (statuses as of 03/28/2022) [facility] History of Past illness Narrative* [...] of this encounter (statuses as of 02/15/2023) [facility] History of Past illness Narrative* [...] of this encounter (statuses as of 04/08/2023) [facility]07-12-2011 Evaluation note* Diagnosis Onset Date Resolution Status Hyperlipidemia chronic History of aortic valve repl acement with bioprosthetic valve October 23, 2010 resolved [place] Work Phone: 1(795) 754-426707-12-2011 Evaluation note* Diagnosis Onset Date Resolution Status Chest pain acute Essential hypertension acute Hyperlipidemia chronic History of aortic valve repl acement with bioprosthetic valve October 23, 2010 resolved [place] Work Phone: 1(711) 220-660807-12-2011 Evaluation note* Diagnosis Onset Date Resolution Status Essential hypertension acute New onset atrial fibrillation acute Hyperlipidemia chronic History of aortic valve repl acement with bioprosthetic valve October 23, 2010 resolved [place] Work Phone: 1(230) 462-701107-12-2011 Evaluation note* Diagnosis Onset Date Resolution Status Essential hypertension acute PAF (paroxysmal atrial fibrillation) acute Hyperlipidemia chronic History of aortic valve repl acement with bioprosthetic valve October 23, 2010 resolved [place] Work Phone: Evaluation note* Diagnosis Vaginal enterocele- Primary Vaginal enterocele, congenital or acquired Urge incontinence Urgency of urination Rectocele documented in this encounter [facility] noteNo assessment information availableWWVUMedicine [facility] Work Phone: Evaluation note* Diagnosis Urge incontinence- Primary documented in this encounter [facility]* Diagnosis Urgency of urination- Primary [facility]* Diagnosis Prolapse of vaginal vault after hysterectomy- Primary Stress incontinence Female stress incontinence Rectocele documented in this encounter [facility]* Diagnosis Urgency of urination- Primary Prolapse of vaginal vault after hysterectomy Stress incontinence Female stress incontinence Rectocele Prolapse of vaginal vault after hysterectomy Stress incontinence Female stress incontinence Rectocele Stress incontinence, female Female stress incontinence documented in this encounter [facility]* Diagnosis Urgency of urination- Primary documented in this encounter [facility]* Diagnosis Encounter for screening mammogram for malignant neoplasm of breast- Primary Other screening mammogram documented in this encounter [facility]* Diagnosis Encounter for screening mammogram for malignant neoplasm of breast Other screening mammogram documented in this encounter [facility]* Diagnosis Encounter for screening mammogram for malignant neoplasm of breast- Primary Other screening mammogram Encounter for screening mammogram for malignant neoplasm of breast Other screening mammogram documented in this encounter [facility] CenterEvaluation note* Diagnosis Left wrist pain Pain in joint, forearm documented in this encounter [facility] CenterEvaluation note* Diagnosis Encounter for screening mammogram for malignant neoplasm of breast- Primary Other screening mammogram documented in this encounter [facility] CenterEvaluation note* Diagnosis Encounter for gynecological examination (general) (routine) without abnormal findings- Primary Encounter for screening mammogram for breast cancer documented in this encounter [facility] CenterEvaluation [facility]* Diagnosis Encounter for gynecological examination (general) (routine) without abnormal findings Encounter for screening mammogram for breast cancer documented in this encounter [facility] CenterProgress note Author Ileana Beltrán [facility] Services Note Date/Time January 20, 2025 11 :50am [place] [facility] [place] [facility] 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 She blames her fatigue on this. [facility] Medical History PAF (paroxysmal atrial fibrillation) New [...] 3RF To apixaban (Eliquis) Pts phone number [phone] Faxed to [email or web address] 5 mg PO BID 180 tabs [...] at this time. 5. 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 - Refilled prescription and faxed order to [facility] per patient?s request. - Reiterated importance of continued anticoagulation for stroke prevention givenatrial fibrillation history. 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 Micah Díaz, DO ~ [facility] Work Phone: Prodfciv note Author Lynn Christensen [facility] Note Date/Time January 26, 2025 1 1:38am [facility] [address], [address] [place] [address] OFFICE VISIT Date of Service: 01/26/25 MR#: [id number] Acct: [id number] Name: FABRICE MOON Rep #: [id number] : 1945 Provider: Dr. 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 Is patient in pain?: No [...] PO BID #180 tabs 1 01/26/25 Rx [id number] intramuscular ea IM 01/20/25 5 History trazodone [...] healthy appearing, comfortable and no acute distress HENOK Head: normocephalic and atraumatic Ears: hearing grossly [...] fallen in the past year?: No 01/26/25 4932 <Electronically signed by Lynn Christensen MD> Date _ Lynn Christensen MD Cosigner Signature: Date (if applicable) CC: ~ [employer] Work Phone: [employer] for referral (narrative)* Outpatient Procedure (Routine) - Pending Review Specialty Diagnoses / Procedures Referred By Ben garcia Referred To Contact [facility] Diagnoses Urge incontinence Procedures URODYNAMICS DEO POST-VOIDING RESIDUAL URINE&/BLADDER CAP Roxane Pineda MD [address] [place] [address] [address] Referral ID Status Reason Start Date Expiration Date Visits Requested Visits Authorized [id number] Pending Review Auto-Generat ed Referral 09/20/2021 09/20/2022 1 1 [facility] for referral (narrative)* Diagnostic Procedure Only (Routine) - Authorized Specialty Diagnoses / Procedures Referred By Contjarad garcia Referred To Contact [facility] Diagnoses Encounter for screening mammogram for malignant neoplasm of breast Procedures KAJAL SCREENING SCREENING MAMMOGRAPHY BI 2-VIEW BREAST INC Cassy Walden MD [address] [place] [address] [facility] [address] [place] [address] Referral ID Status Reason Start Date Expiration Date Visits Requested Visits Authorized [id number] Authorized Auto-Generat ed Referral 03/22/2022 04/21/2023 1 1 [facility] for referral (narrative)* Diagnostic Procedure Only (Routine) - Closed Specialty Diagnoses / Procedures Referred By Ben garcia Referred To Contact [facility] Diagnoses Encounter for screening mammogram for malignant neoplasm of breast Procedures KAJAL SCREENING SCREENING MAMMOGRAPHY BI 2-VIEW BREAST INC Cassy Walden MD [address] [place] [address] [facility] [address] [place] [address] Referral ID Status Reason Start Date Expiration Date V isits Requested Visits Authorized [id number] Closed Auto-Generate d Referral 03/22/2022 04/21/2023 1 1 [facility] for referral (narrative)* Diagnostic Procedure Only (Routine) - Closed Specialty Diagnoses / Procedures Referred By Ben garcia Referred To Contact [facility] Diagnoses Encounter for screening mammogram for malignant neoplasm of breast Procedures KAJAL SCREENING SCREENING MAMMOGRAPHY BI 2-VIEW BREAST INC Cassy Walden MD [address] [place] [address] [facility] [address] [place] [address] Referral ID Status Reason Start Date Expiration Date V isits Requested Visits Authorized [id number] Closed Auto-Generate d Referral 03/31/2023 04/29/2024 1 1 [facility] for referral (narrative)* Diagnostic Procedure Only (Urgent) - Closed Specialty Diagnoses / Procedures Referred By Ben t Referred To Contact [facility] Diagnoses Left wrist pain Procedures XR WRIST GENERAL 3V PA/LAT/OBL LEFT RADEX WRIST COMPLETE MINIMUM 3 VIEWS Saira Moore, ELHAM.WHEEL ALIGNMENT TECHNICIAN [address] [place] [address] [place] [address] Referral ID Status Reason Start Date Expiration Date V isits Requested Visits Authorized [id number] Closed Auto-Generate d Referral 04/20/2023 05/19/2024 1 1 [facility] for referral (narrative)* Diagnostic Procedure Only (Routine) - New Request Specialty Diagnoses / Procedures Referred By Ben garcia Referred To Contact [facility] Diagnoses Encounter for screening mammogram for malignant neoplasm of breast Procedures KAJAL SCREENING SCREENING MAMMOGRAPHY BI 2-VIEW BREAST INC Cassy Walden MD [address] [place] [address] [facility] [address] [place] [address] Referral ID Status Reason Start Date Expiration Date Visits Requested Visits Authorized [id number] New Request Auto-Generat ed Referral 04/25/2025 1 1 [facility] for referral (narrative)* Diagnostic Procedure Only (Routine) - Authorized Specialty Diagnoses / Procedures Referred By Kevinac t Referred To Contact [facility] Diagnoses Encounter for gynecological examination (general) (routine) without abnormal findings Encounter for screening mammogram for breast cancer Procedures KAJAL SCREENING W SYBIL SCREENING DIGITAL BREAST TOMOSYNTHESIS BI SCREENING MAMMOGRAPHY BI 2-VIEW [employer] INC Cassy Walden MD [address] [place] [address] [facility] [address] [place] [address] Referral ID Status Reason Start Date Expiration Date Visits Requested Visits Authorized [id number] Authorized Auto-Generat ed Referral 05/18/2024 06/17/2025 1 1 [facility] for referral (narrative)No reason for referral information availableWWVUMedicine [facility] Work Phone: Reason for visit Narrative* Diagnostic Procedure Only (Routine) - Closed Specialty Diagnoses / Procedures Referred By Contac t Referred To Contact [facility] Diagnoses Encounter for screening mammogram for malignant neoplasm of breast Procedures KAJAL SCREENING SCREENING MAMMOGRAPHY BI 2-VIEW BREAST INC Cassy Walden MD [address] [place] [id number] [facility] [address] [employer] [address] Referral ID Status Reason Start Date Expiration Date V isits Requested Visits Authorized [id number] Closed Auto-Generate d Referral 03/22/2022 04/21/2023 1 1 [facility] for visit Narrative* Diagnostic Procedure Only (Urgent) - Closed Specialty Diagnoses / Procedures Referred By Contac t Referred To Contact [facility] Diagnoses Left wrist pain Procedures XR WRIST GENERAL 3V PA/LAT/OBL LEFT RADEX WRIST COMPLETE MINIMUM 3 VIEWS Saira Moore, MARKETING REPRESENTATIVE.WHEEL ALIGNMENT TECHNICIAN [address] [place] [address] Xr Imaging [facility] Referral ID Status Reason Start Date Expiration Date V isits Requested Visits Authorized [id number] Closed Auto-Generate d Referral 04/20/2023 05/19/2024 1 1 [facility] for visit Narrative* Diagnostic Procedure Only (Routine) - Closed Specialty Diagnoses / Procedures Referred By Contac t Referred To Contact [facility] Diagnoses Encounter for gynecological examination (general) (routine) without abnormal findings Encounter for screening mammogram for breast cancer Procedures KAJAL SCREENING W SYBIL SCREENING DIGITAL BREAST TOMOSYNTHESIS BI SCREENING MAMMOGRAPHY BI 2-VIEW BREAST INC Cassy Walden MD [address] [place] [id number] [facility] [address] [place] [address] Referral ID Status Reason Start Date Expiration Date V isits Requested Visits Authorized [id number] Closed Auto-Generate d Referral 05/18/2024 06/17/2025 1 1 [facility] Chief Complaint and Reason for [...] 2022 10:33am Name of Medical Power of [place] carly escobar November 01, 2022 10:33am Advance Directives Yes November 01 10:33am Living Will Yes November 01, 2022 10:33am Power of [place] Yes November 01 10:33am Advance Directive Response Recorded Date/ Time Advance Directives on File No November 01, 2022 10:33am Name of Medical Power of [place] carly escobar November 01, 2022 10:33am Advance Directives on File Yes [facility] 2022 11:13am Name of Medical Power of [place] Jennifer Gonzalez December 24, 2022 11:13am Advance Directives Yes December 11:13am Living Will Yes December 24, 2022 11:13am Power of [place] Yes December 11:13am Advance Directive Response Recorded Date/ Time Advance Directives on File Yes [facility] 2022 10:13am Name of Medical Power of [place] Jennifer Loaizaer December 24, 2022 10:13am Advance Directives Yes December 10:13am Living Will Yes December 24, 2022 10:13am Power of [place] Yes December 10:13am Advance Directive Response Recorded Date/ Time Advance Directives Yes December 11:13am Living Will Yes December 24, 2022 11:13am Power of [place] Yes December 11:13am Advance Directive Response Recorded Date/ Time Advance Directives Yes December 11:13am Advance Directive Response Recorded Date/ Time Living Will Yes December 24, 2022 11:13am Do you have a Healthcare Power of [place]? Yes December 24, 2022 11:13am Advance Directives Yes December 11:13am Additional Source Comments Source Comments (unrecognize d section and content) In the event this informatio n is protected by the Federal Confidentiality of Alcohol and Drug Abuse Patient Records regulations: The Federal rules restrict any use of the information to criminally investigate or prosecute any alcohol or drug abuse patient.[facility] Center[facility] the event this information is protected by the Federal Confidentiality of Alcohol and Drug Abuse Patient Records regulations: The Federal rules restrict any use of the information to criminally investigate or prosecute any alcohol or drug abuse patient.[facility] CenterIn the event this information is protected by the Federal Confidentiality of Alcohol and Drug Abuse Patient Records regulations: The Federal rules restrict any use of the information to criminally investigate or prosecute any alcohol or drug abuse patient.[facility] CenterIn the event this information is protected by the Federal Confidentiality of Alcohol and Drug Abuse Patient Records regulations: The Federal rules restrict any use of the information to criminally investigate or prosecute any alcohol or drug abuse patient.[facility] CenterIn the event this information is protected by the Federal Confidentiality of Alcohol and Drug Abuse Patient Records regulations: The Federal rules restrict any use of the information to criminally investigate or prosecute any alcohol or drug abuse patient.[facility] CenterIn the event this information is protected by the Federal Confidentiality of Alcohol and Drug Abuse Patient Records regulations: The Federal rules restrict any use of the information to criminally investigate or prosecute any alcohol or drug abuse patient.[facility] CenterIn the event this information is protected by the Federal Confidentiality of Alcohol and Drug Abuse Patient Records regulations: The Federal rules restrict any use of the information to criminally investigate or prosecute any alcohol or drug abuse patient.[facility] CenterIn the event this information is protected by the Federal Confidentiality of Alcohol and Drug Abuse Patient Records regulations: The Federal rules restrict any use of the information to criminally investigate or prosecute any alcohol or drug abuse patient.[facility] CenterIn the event this information is protected by the Federal Confidentiality of Alcohol and Drug Abuse Patient Records regulations: The Federal rules restrict any use of the information to criminally investigate or prosecute any alcohol or drug abuse patient.[facility] CenterIn the event this information is protected by the Federal Confidentiality of Alcohol and Drug Abuse Patient Records regulations: The Federal rules restrict any use of the information to criminally investigate or prosecute any alcohol or drug abuse patient.[facility] CenterIn the event this information is protected by the Federal Confidentiality of Alcohol and Drug Abuse Patient Records regulations: The Federal rules restrict any use of the information to criminally investigate or prosecute any alcohol or drug abuse patient.[facility] CenterIn the event this information is protected by the Federal Confidentiality of Alcohol and Drug Abuse Patient Records regulations: The Federal rules restrict any use of the information to criminally investigate or prosecute any alcohol or drug abuse patient.[facility] CenterIn the event this information is protected by the Federal Confidentiality of Alcohol and Drug Abuse Patient Records regulations: The Federal rules restrict any use of the information to criminally investigate or prosecute any alcohol or drug abuse patient.[facility] CenterIn the event this information is protected by the Federal Confidentiality of Alcohol and Drug Abuse Patient Records regulations: The Federal rules restrict any use of the information to criminally investigate or prosecute any alcohol or drug abuse patient.[facility] CenterIn the event this information is protected by the Federal Confidentiality of Alcohol and Drug Abuse Patient Records regulations: The Federal rules restrict any use of the information to criminally investigate or prosecute any alcohol or drug abuse patient.[facility] CenterIn the event this information is protected by the Federal Confidentiality of Alcohol and Drug Abuse Patient Records regulations: The Federal rules restrict any use of the information to criminally investigate or prosecute any alcohol or drug abuse patient.[facility] CenterIn the event this information is protected by the Federal Confidentiality of Alcohol and Drug Abuse Patient Records regulations: The Federal rules restrict any use of the information to criminally investigate or prosecute any alcohol or drug abuse patient.[facility] CenterIn the event this information is protected by the Federal Confidentiality of Alcohol and Drug Abuse Patient Records regulations: The Federal rules restrict any use of the information to criminally investigate or prosecute any alcohol or drug abuse patient.[facility] CenterIn the event this information is protected by the Federal Confidentiality of Alcohol and Drug Abuse Patient Records regulations: The Federal rules restrict any use of the information to criminally investigate or prosecute any alcohol or drug abuse patient.[facility] CenterIn the event this information is protected by the Federal Confidentiality of Alcohol and Drug Abuse Patient Records regulations: The Federal rules restrict any use of the information to criminally investigate or prosecute any alcohol or drug abuse patient.[facility] Reason for Visit (unrecogniz ed section and content) Reason Comments New Patient Reason Comments Urge Urinary Incontinence UDS Reason Comments uds follow up Reason Comments FYI-No Action Needed Medication Problem Reason Comments Surgery Question Reason Comments Medication Problem Reason Comments Patient Question Reason Comments Orders Reason Comments Patient Question Reason Comments Yearly Exam Care Teams (unrecognized sec tion and content) Principal Quality Engineer Relationship Specialty Start Date End Date BreMicah FarzanehDO [address] [place] [address] PCP - General Family Practice 12/29/20 Lynn Christensen [address] [facility] [address] [place] [address] Physician Urology 07/24/21 Principal Quality Engineer Relationship Specialty Start Date End Date Bre Micah MoyDO [address] [place] [address] PCP - General Family Practice 12/29/20 Lynn Christensen [address] [facility] [address] [place] [address] Physician Urology 07/24/21 Principal Quality Engineer Relationship Specialty Start Date End Date Micah Díaz DO [address] [place] [address] PCP - General Family Practice 12/29/20 Lynn Christensen [address] [facility] [address] [place] [address] Physician Urology 07/24/21 Principal Quality Engineer Relationship Specialty Start Date End Date Micah Díaz, DO [address] [place] [address] PCP - General Family Practice 12/29/20 Lynn Christensen [address] [place] [address] [place] [address] Physician Urology 07/24/21 Principal Quality Engineer Relationship Specialty Start Date End Date Micah Díaz [address] [place] [address] PCP - General Family Practice 12/29/20 Lynn Christensen [address] [place] [address] Physician Urology 07/24/21 Principal Quality Engineer Relationship Specialty Start Date End Date Micah DíazDO [address] [place] [address] PCP - General Family Practice 12/29/20 Lynn Christensen [address] [place] [address] Physician Urology 07/24/21 Principal Quality Engineer Relationship Specialty Start Date End Date Micah DíazDO [address] [place] [address] PCP - General Family Medicine 12/29/20 Lynn Christensen [address] [place] [address] Physician Urology 07/24/21 Principal Quality Engineer Relationship Specialty Start Date End Date Micah DíazDO [address] [place] [address] PCP - General Family Medicine 12/29/20 Lynn Christensen [address] [facility] [address] [place] [address] Physician Urology 07/24/21 Principal Quality Engineer Relationship Specialty Start Date End Date Micah Díaz DO [address] [place] [address] PCP - General Family Medicine 12/29/20 Lynn Christensen [address] [place] [address] Physician Urology 07/24/21 Principal Quality Engineer Relationship Specialty Start Date End Date Micah Díaz DO [address] [address] PCP - General Family Medicine 12/29/20 Lynn Christensen [address] [facility] [address] [place] [address] Physician Urology 07/24/21 Team Status: Active Member [...] Referring Provider, Other Provider Active Dr. Angel aFirchild MD Attending Provider Active Team Status: Active [...] Camarillo , DO Other Provider Active Ileana Belrtán PA, PA Other Provider Active Dr. Stepan Horner MD Attending Provider Active Team Status: Inactive Member Role Status Dates Dr. Micah Díaz , DO Primary Care Provider Active Dr. Lynn Chritsensen MD Attending Provider, Referring P rovider Active [...] Dr. Reginald Carey MD Attending Provider Active Principal Quality Engineer Relationship Specialty Start Date End Date Micah Díaz DO [address] [address] PCP - General Family Medicine 12/29/20 Lynn Christensen [address] [place], [place] [address] Physician Urology 07/24/21 Team Status: Active Member Role Status Dates Dr. Micah Díaz DO Primary Care Provider, Referrin g Provider Active Dr. Reginald Carey MD Attending Provider Active Team Status: Inactive Member Role Status Dates Dr. Micah Díaz DO Primary Care Provider Active Dr. Matti Wietecha , DO Attending Provider, Referring Provider Active Principal Quality Engineer Relationship Specialty Start Date End Date Micah Díaz DO [address] [place], [place] [address] PCP - General Family Medicine 12/29/20 Lynn Christensen [address] [place], [place] [address] Physician Urology 07/24/21 Team Status: Inactive Member Role Status Dates Dr. Micah Díaz , DO Primary Care Provider Active ELZBIETA KNOX , WOOL HAT HYDRAULICKER-C Attending Provider, Referring Pr lauraer Active Dr. Matti Camarillo , DO Other Provider Active Principal Quality Engineer Relationship Specialty Start Date End Date Micah Díaz DO [address] [place] [address] PCP - General Family Medicine 12/29/20 Lynn Christensen [address] [place], [place] [address] Physician Urology 07/24/21 Principal Quality Engineer Relationship Specialty Start Date End Date Micah Díaz DO [address] [place] [address] PCP - General Family Medicine 12/29/20 Lynn Christensen MD [address] [place], [place] [address] Physician Urology 07/24/21 Principal Quality Engineer Relationship Specialty Start Date End Date Micah Díaz DO [address] [place], [place] [id number] PCP - General Family Medicine 12/29/20 Lynn Christensen MD [address] [place] [address] Physician Urology 07/24/21 Principal Quality Engineer Relationship Specialty Start Date End Date Micah Díaz DO [address] [place] [address] PCP - General Family Medicine 12/29/20 Lynn Christensen MD [address] [place] [address] Physician Urology 07/24/21 Principal Quality Engineer Relationship Specialty Start Date End Date Micah Díaz DO [address] [place] [address] PCP - General Family Medicine 12/29/20 Lynn Christensen MD [address] [place] [address] Physician Urology 07/24/21 Team Status: Inactive Member [...] 2024 End: July 20, 2024 Milka Mckenna WOOL HAT HYDRAULICKER, WOOL HAT HYDRAULICKER-C Attending Provider Active Start: July 20, 2024 End: July 20, 2024 Team Status: Inactive Member Role Status Dates Dr. Micah Díaz DO Primary Care Provider Active Start: July 22, 2024 End: July 22, 2024 Milka Mckenna WOOL HAT HYDRAULICKER, WOOL HAT HYDRAULICKER-C Attending Provider Active Start: July 22, 2024 End: July 22, 2024 Milka Mckenna WOOL HAT HYDRAULICKER, WOOL HAT HYDRAULICKER-C Referring Provider Active Start: July 22, 2024 End: July 22, 2024 Team Status: Active Member Role Status Dates Dr. Micah Díaz DO Primary Care Provider Active Start: July 22, 2024 Dr. Angel Fairchild MD Attending Provider Active S tart: July 22, 2024 Team Status: Active Member Role Status Dates Dr. Micah Díaz DO Primary Care Provider Active Start: July 23, 2024 Milka Mckenna WOOL HAT HYDRAULICKER, WOOL HAT HYDRAULICKER-C Attending Provider Active Start: July 23, 2024 [...] 15, 2024 Dr. Lynn Christensen MD Attending Provider Active Start: December 15, [...] section and content) DATE CREATED AUTHOR 04/04/2022 [facility] DATE CREATED AUTHOR AUTHOR'S ORGANIZ ATION 05/23/2024 [facility] DATE CREATED AUTHOR AUTHOR'S ORGANIZ ATION 02/12/2025 [facility] FOR RECORDS PERTAINING TO PATIENTS WHO [...] BE BASED ON THE PRIMARY CLINICAL RECORDS. [facility] [employer] [facility]. provides no warranty or guarantee of the accuracy or completeness of information in this document.
[2025-02-13] MEDS: 0.9% Normal Saline (1000mL) 1,000 ML 50 ML IV (20:15)
--- NOTE | 2025-02-13 20:56 | EKG12_ITS ---
Test Reason : ADMIT Blood Pressure : */* mmHG Vent. Rate : 55 BPM Atrial Rate : 55 BPM P-R Int : 210 ms QRS Dur : 86 ms QT Int : 416 ms P-R-T Axes : 69 12 128 degrees QTcB Int : 397 ms Sinus bradycardia with 1st degree A-V block with occasional Premature ventricular complexes Nonspecific T wave abnormality Abnormal ECG Confirmed by Eliseo Cabral ([id number]), avid editor BELIA HOUSE ([id number]) on 02/14/2025 12:58:26 PM Referred By: Confirmed By: Eliseo Cabral
[2025-02-13] MEDS: APIXABAN 5 MG TABLET PO (22:31)
--- NOTE | 2025-02-13 22:59 | EKG12_ITS ---
Test Reason : CP Blood Pressure : */* mmHG Vent. Rate : 53 BPM Atrial Rate : 53 BPM P-R Int : 196 ms QRS Dur : 90 ms QT Int : 442 ms P-R-T Axes : 69 9 90 degrees QTcB Int : 414 ms Sinus bradycardia with occasional Premature ventricular complexes Nonspecific T wave abnormality Abnormal ECG When compared with ECG of 13-Feb-2025 20:24, MANUAL COMPARISON REQUIRED DATA IS UNCONFIRMED Confirmed by Eliseo Cabral ([id number]), index editor BELIA HOUSE ([id number]) on 02/14/2025 12:57:44 PM Referred By: Confirmed By: Eliseo Cabral
[2025-02-14] VITALS (8 sets, daily range): BP systolic 108–153; BP diastolic 50–86; PULSE 52–66; RESP 15–18; TEMP 36.4–37.1; O2SAT 94–98
[2025-02-14 04:52] LABS: Hematocrit 37.1 % (37-47); Hemoglobin 12.4 g/dL (12.0-15.0); Immature Granulocytes Count 0.010 X10^3/uL (0.0-0.0); Mean Corp Hgb Conc 33.4 g/dL (32-36); Mean Corpuscular Volume 90.3 fL (81-99); Mean Platelet Vol. 10.8 fl (6.2-12.0); NRBC Flagged by Analyzer 0 % (0-5); Platelet Count 178 K/mm3 (150-450); RBC Distribution Width CV 12.7 % (11.6-14.6); RBC Distribution Width SD 41.9 fl (35.1-43.9); Red Blood Count 4.11 M/mm3 (4.2-5.4); White Blood Count 5.2 K/mm3 (4.4-11.0)
[2025-02-14 05:34] LABS: Anion Gap 10 (5-15); BUN 9 mg/dL (4-19); BUN/Creat Ratio 13.8 RATIO (10-20); Calcium,Total 9.0 mg/dL (7.6-11.0); Carbon Dioxide 25.5 mmol/L (21.0-32.0); Chloride 106 mmol/L (98-108); Cholesterol 188 mg/dL (<=200); Estimated Creatinine Clearance 61.77 ml/min (50-250); Glucose 94 mg/dL (70-99); Low Density Lipoprotein Calc. 114 mg/dL; Potassium 4.0 mmol/L (3.3-5.1); Triglycerides 177 mg/dL; Very Low Density Lipoprotein 35 mg/dL (5-40); cholesterol:hdl ratio screen 4.40
--- NOTE | 2025-02-14 05:55 | EKG12_ITS ---
Test Reason : MORNING Blood Pressure : */* mmHG Vent. Rate : 49 BPM Atrial Rate : 49 BPM P-R Int : 200 ms QRS Dur : 94 ms QT Int : 410 ms P-R-T Axes : 80 30 216 degrees QTcB Int : 370 ms Sinus bradycardia T wave abnormality, consider anterior ischemia Abnormal ECG When compared with ECG of 13-Feb-2025 23:00, MANUAL COMPARISON REQUIRED DATA IS UNCONFIRMED Confirmed by Eliseo Cabral ([id number]), film and video editor BELIA HOUSE ([id number]) on 02/14/2025 12:57:30 PM Referred By: Confirmed By: Eliseo Cabral
[2025-02-14] MEDS: APIXABAN 5 MG TABLET PO ×2 (11:30→20:52)
--- NOTE | 2025-02-14 13:42 | STRESSREP_ITS ---
Stress Test Report Date: 02/14/2025 Procedure: Pharmacologic stress nuclear imaging study Indications: Chest pain Consent: Per the patient Procedure: The patient underwent pharmacologic (Regadenoson 0.4mg ) evaluation with a peak heart rate of 81 beats per minute (57%predicted maximal heart rate) and a peak blood pressure of 142/60 mmHg. The baseline ECG demonstrated sinus bradycardia with nonspecific ST changes. The peak pharmacologic ECG did not show any diagnostic changes. Frequent PVCs noted pretest, during infusion and in recovery. There was no complaint of chest discomfort during pharmacologic infusion or recovery. The patient was injected with 11.8 millicuries of technetium 99m Cardiolite and subsequently rest SPECT Cardiolite nuclear imaging was obtained in the horizontal long, vertical long, and short axis views. The patient underwent pharmacologic (Regadenoson) evaluation. The patient was injected with 34.4 millicuries of technetium 99m Cardiolite and subsequently stress SPECT Cardiolite nuclear imaging was obtained in the horizontal long, vertical long, and short axis views. No gated studies done The examination was stopped secondary to completion of protocol. Rest and stress SPECT Cardiolite nuclear imaging status post realignment, normalization, and attenuation correction demonstrate no fixed or reversible perfusion defects. Impression: 1. Pharmacologic (Regadenoson) evaluation 2. Peak pharmacologic ECG with no diagnostic changes. 3. Frequent PVCs noted. 5. Rest and stress SPECT Cardiolite nuclear imaging demonstrate relative uniform tracer uptake and myocardial perfusion appearing within normal limits. 6. No gated study done. This note was generated with [employer] software. It may contain incorrect words, spelling, and punctuation that were not noted in checking the note before signing.
--- NOTE | 2025-02-14 14:30 | CHAPLAIN ---
Type of Pastoral Visit _x__ Initial Visit ___ Follow-up Visit ___ On-call Visit ___ General Patient Visit ___ Spiritual Assessment ___ Family Conference ___ Bereavement ___ Rapid Response ___ Code Blue ___ Other (describe below) Pastoral Care Referral From _x__ Patient ___ Family ___ Nurse ___ Physician ___ Coverage Specialist Rn ___ Communications Representative ___ Other (describe below) Sacrament/Intervention _x__ Active listening ___ Anointing ___ Yazidi ___ Bereavement ___ Communion _x__ Arabella exploration ___ _x__ Life review _x__ Prayer ___ Reconciliation ___ Sacrament of Sick _x__ Supportive presence ___ Wedding ___ Other (describe below) Pastoral Comments patient explains her situation; pt has family but none live in [place]; pt has congregational friends but she has been unable to attend services for months; pt has Bible questions that she asks at this time; pt has had tests but is not certain on any details or plans at this time; pt is given time to talk and express her questions; pt welcomes presence and prayer
--- NOTE | 2025-02-14 16:18 | CASEMGMT ---
SPANGLER Met with patient to complete SPANGLER form. SPANGLER form and its content were verbally explained and patient's questions were answered to the best of my ability.? Patient voiced understanding and signed SPANGLER form.? Patient provided a copy of signed SPANGLER form and original placed in patient's chart.? Patient had no further questions. Felicita Galvez, Discharge Planning Asst
--- NOTE | 2025-02-14 17:50 | PN.HOSP_ITS ---
Reason for Visit Chief Complaint: Shaky, weak, CP Subjective Subjective Feeling generally tired tired today like she has been for the past few weeks, had an episode overnight where she noticed a strange feeling in her chest that seem to travel up to her jaw which was not necessarily pain but it was there and then resolved on its own, presently not having any of the symptoms, no shortness of breath Objective Data Objective Data Vital Signs: Vital Signs Temp Pulse Resp BP Pulse Ox O2 Del Method 97.6 F L 55 L 18 121/57 H 94 Room Air 02/14/25 16:34 02/14/25 16:34 02/14/25 16:34 02/14/25 16:34 02/14/25 16:34 02/14/25 16:34 Oxygen Delivery Method Room Air Weight: 82 kg Body Mass Index (BMI) 28.3 Intake & Output: Intake and Output for Last 24 Hours 02/12/25 02/13/25 02/14/25 23:59 22:59 23:59 Intake Total 1000 / 1000 Balance 1000 / 1000 Lab / Micro Data 02/14/25 04:14 02/14/25 04:14 Labs: Laboratory Results - last 24 hr 02/14/25 04:14: WBC 5.2, RBC 4.11 L, Hgb 12.4, Hct 37.1, MCV 90.3, MCH 30.2, MCHC 33.4, RDW Std Deviation 41.9, RDW Coeff of Sarai 12.7, Plt Count 178, MPV 10.8, Immature Gran % (Auto) 0.200, Neut % (Auto) 38.5 L, Lymph % (Auto) 49.8 H, [place] % (Auto) 8.2, Eos % (Auto) 2.3, Baso % (Auto) 1.0, Absolute Neuts (auto) 2.0, Absolute Lymphs (auto) 2.61, Nucleated RBC % 0, Sodium 142, Potassium 4.0, Chloride 106, Carbon Dioxide 25.5, Anion Gap 10, BUN 9, Creatinine 0.62 L, Estim Creat Clear Calc 61.77, Est GFR (MDRD) Non-Af 90, BUN/Creatinine Ratio 13.8, Glucose 94, Calcium 9.0, Triglycerides 177, Cholesterol 188, LDL Cholesterol, Calc 114, VLDL Cholesterol 35, HDL Cholesterol 43, Cholesterol/HDL Ratio 4.40 Radiography Diagnostic Testing: Radiology Impression Echocardiogram 02/13/25 17:57 Interpretation Summary Mild concentric left ventricular hypertrophy. The left ventricular ejection fraction is 60 %. At least stage I diastolic dysfunction. The left atrium is mildly enlarged. Mild (1+) tricuspid valve insufficiency. Stable appearing bioprosthetic aortic valve apparatus. Mild to moderately dilated aortic root. Compared to prior study, there is no significant change. Ordering Physician: Janett Smith Performed By: Mitchel Hartley RCS Physical Exam Narrative General: Alert, oriented, no apparent distress HEENT: Atraumatic, normocephalic Eyes: Anicteric, normal conjunctiva, extraocular movements grossly intact Neck: Supple Respiratory: Clear to auscultation bilaterally, normal respiratory effort Cardiovascular: Intermittent PVCs GI: Soft, nontender, nondistended Extremities: No edema Musculoskeletal: Moving all extremities Neuro: No overt focal neurological deficits Skin: No rashes appreciated Psych: Cooperative Assessment & Plan Assessment/Plan (1) Chest pain: PLAN: Plan #Chest pain -Symptoms vague, substernal with no exacerbating or relieving factors and she felt shaky and weak at that time, symptoms resolved -EKG noted to be bigeminy -Trop 14 then 16 and then 14 -Admit to telemetry -Echo ordered - Continue home Eliquis -Statin -Lipid panel in AM -Stress test ordered for AM -02/14: Stress normal and echo with no wall motion abnormalities, stage I diastolic dysfunction, EF of 60%. Did have another big episode overnight, advised if she has any more symptoms to let us know and we can repeat troponins, she denies that that feeling overnight was pain, this may be symptomatic PVCs or due to intermittently having lower heart rates with the PVCs # Frequent PVCs -02/14: Supportive care, holding metoprolol, cardiac workup as above, will likely need to follow-up with cardiology for consideration of outpatient monitoring to assess PVC burden, will evaluate in the a.m. and review telemetry for further determination Chronic medical problems and/or problems not being actively addressed during today's encounter: #Paroxysmal Atrial Fibrillation -Rate control: Metoprolol -Anticoagulation: Eliquis #Hypothyroidism -Continue Synthroid # Overactive bladder - Continue home medications #DVT ppx: Not indicated, already on full dose anticoagulation Janett Smith MD Time spent in the patient's overall evaluation,decision-making process, review of diagnostic data, adjustment of management, discussion with other providers, nursing nursing and ancillary staff involved in patient's care documentation, 37 Minutes Charges/Coding Visit Charges Inpatient E&M: 90975 Subs Hosp L2
[2025-02-14] MEDS: 0.9% Saline Lock 10 ML Syringe IV (20:51)
[2025-02-15] MEDS: HYDROcodone Bitartrate/Apap 5/325 Tablet PO (02:08)
[2025-02-15 02:18] VITALS: BP 139/55; PULSE 57; RESP 16; TEMP 36.4; O2SAT 97
[2025-02-15 02:21] VITALS: PULSE 57
[2025-02-15 06:31] LABS: Hematocrit 36.6 % (37-47); Hemoglobin 12.4 g/dL (12.0-15.0); Immature Granulocytes Count 0.010 X10^3/uL (0.0-0.0); Mean Corp Hgb Conc 33.9 g/dL (32-36); Mean Corpuscular Volume 90.6 fL (81-99); Mean Platelet Vol. 10.0 fl (6.2-12.0); NRBC Flagged by Analyzer 0 % (0-5); Platelet Count 174 K/mm3 (150-450); RBC Distribution Width CV 13.0 % (11.6-14.6); RBC Distribution Width SD 43.0 fl (35.1-43.9); Red Blood Count 4.04 M/mm3 (4.2-5.4); White Blood Count 5.1 K/mm3 (4.4-11.0)
[2025-02-15 06:58] LABS: Anion Gap 10 (5-15); BUN 8 mg/dL (4-19); BUN/Creat Ratio 12.0 RATIO (10-20); Calcium,Total 9.1 mg/dL (7.6-11.0); Carbon Dioxide 26.0 mmol/L (21.0-32.0); Chloride 105 mmol/L (98-108); Estimated Creatinine Clearance 61.77 ml/min (50-250); Glucose 108 mg/dL (70-99); Potassium 4.1 mmol/L (3.3-5.1)
[2025-02-15 08:30] VITALS: BP 107/49; PULSE 62; RESP 17; TEMP 36.8; O2SAT 96
[2025-02-15] MEDS: APIXABAN 5 MG TABLET PO (09:58)
--- NOTE | 2025-02-15 12:37 | DCINST_ITS ---
Discharge Instructions DC O2, CPAP, BIPAP needs Home O2 Discharge instructions: No Dressing / Incision Discharge Activity: - (Increase activity as tolerated) Follow Up Care Test Results: Test results from this visit will be discussed in further detail at your follow- up appointment, if applicable. Discharge Plan Admission Admit Date/Time: 02/13/25 17:51 Primary Reason for Your Visit: Fatigue, chest discomfort Attending Provider: Janett Smith Primary Care Provider: Neel Ochoa Instructions Patient Instructions: PVCs Additional Instructions / Restrictions: DISCHARGE INSTRUCTIONS PLEASE READ *Please take this with you to your next doctors appointment* - Your metoprolol has been discontinued as it is suspected this contributed to your symptoms -You will be discharged with instructions for a 30-day heart monitor to evaluate for amount of PVCs (extra beats) you have -You will need to follow-up with cardiology upon discharge, please call the office upon discharge to schedule your hospital follow-up appointment ( [phone]) -Please call your primary care provider's office upon discharge to schedule a hospital follow up within 1 week. -For any concerning signs or symptoms please call 911 or proceed to the nearest emergency department Discharge Orders/Prescriptions Prescriptions: Continued coenzyme Q10 100 mg tablet 100 mg PO QDAY Qty: 90 3RF cholecalciferol (vitamin D3) 50 mcg (2,000 unit) tablet 4,000 unit PO QODAY Patient Comments: 5000 IU Tablet PO QDAY levothyroxine 137 mcg tablet 112 mcg PO DAILY Patient Comments: take /Friday hydrocodone-acetaminophen 5-325 mg tablet 1 tab PO QHS PRN (Reason: pain) trazodone 100 mg tablet 100 mg PO QHS [id number] Injectable 1 ea IM .month Eliquis 5 mg tablet 5 mg PO BID Qty: 180 3RF Rx Instructions: Pts phone number [phone] Faxed to [facility] Gemtesa 75 mg tablet 75 mg PO QDAY fesoterodine [Toviaz] 4 mg tablet extended release 24 hr 4 mg PO QDAY spironolactone 25 mg tablet 25 mg PO DAILY Qty: 90 3RF Discontinued metoprolol tartrate 25 mg tablet 12.5 mg PO BID Qty: 90 3RF Other Ambulatory Orders: 30 Day Event Recorder Preventi (Urgent) Timeframe: 1 Day Facility: [facility] - Location: Cardiovascular Services Ordered By: Dr. Janett Smith Referrals / Follow Up: Neel Ochoa DO [Primary Care Provider, Family Practice] - In 1 Week Ileana Beltrán PA [Med Staff - Adv Practice Prof, Cardiology] - Within 2 Weeks Disposition Disposition (needs filled in before D/C Order can be placed): Home, Self Care
--- NOTE | 2025-02-15 12:46 | DS.PCM_ITS ---
Providers Date of Admission: 02/13/25 Date of Discharge: 03/16/25 Primary Care Physician: Dr. Neel Ochoa DO Reason For Visit: CHEST PAIN, SLIGHT ELEVATION IN TROPS Diagnosis Discharge Diagnosis (1) Chest pain: Status: Acute Code(s): R07.9 - Chest pain, unspecified (2) PAF (paroxysmal atrial fibrillation): Status: Acute Code(s): I48.0 - Paroxysmal atrial fibrillation (3) Frequent PVCs: Status: Acute Code(s): I49.3 - Ventricular premature depolarization (4) History of aortic valve replacement with bioprosthetic valve: Status: Resolved Code(s): Z95.3 - Presence of xenogenic heart valve Plan #Frequent PVCs #Chest discomfort #Paroxysmal Atrial Fibrillation #Hypothyroidism # Overactive bladder Medications at Discharge Home Medications coenzyme Q10 100 mg tablet 100 mg PO QDAY #90 tabs 05/22/17 levothyroxine 137 mcg tablet 112 mcg PO DAILY 01/07/23 fesoterodine 4 mg tablet,extended release 24 hr (Toviaz) 4 mg PO QDAY 02/04/24 cholecalciferol (vitamin D3) 50 mcg (2,000 unit) tablet 4,000 unit PO QODAY 07/20/24 hydrocodone-acetaminophen 5-325mg 5mg-325mg 1 tab PO QHS PRN pain 07/20/24 spironolactone 25 mg tablet 25 mg PO DAILY #90 TABLETS 09/29/24 vibegron 75 mg tablet (Gemtesa) 75 mg PO QDAY 12/29/24 apixaban 5 mg tablet (Eliquis) 5 mg PO BID #180 tabs 01/20/25 [id number] intramuscular 1 ea IM .month 01/20/25 trazodone 100 mg tablet 100 mg PO QHS 01/20/25 Hospital Course Procedures Nuclear stress test and Transthoracic echo Summary of Care Provided Minutes Spent on Discharge: 31 Hospital Course: Per HPI: FABRICE MOON, is a 79-year-old female with history of hypothyroidism, ILEANA, A-fib presented to [facility] ED 02/13/2025 feeling tired and shaky for the past couple of days and also noted some chest pressure and tightness over substernal area with no improving or exacerbating factors. In the ED patient afebrile, heart rate initially listed as 32 however repeat was 56 and remained in the 50s, respiratory rate 14 and blood pressure 134/62, patient 99% on room air. CBC within normal limits, TSH normal, initial troponin 14 with a repeat of 20, BMP only notable for a slightly elevated glucose of 102. Chest x-ray reported out as no acute process. Given troponin delta of 6 hospitalist contacted for admission for chest pain rule out. Patient evaluated bedside, reports earlier today she felt shaky and weak and had some tightness over her substernal area with no radiation, presently all of her symptoms are feeling better with no chest pain. Denies any shortness of breath, no swelling in lower extremities. Reports has been several years since any cardiac workup. INTERVAL HISTORY: Patient had echocardiogram which showed stage I diastolic dysfunction, EF 60% and a stable appearing bioprosthetic aortic valve apparatus that had no significant change compared to previous echo, stress test also negative for any acute changes. Patient frequently had PVCs and reports recently feeling tired and shaky intermittently, did have another episode of the strange feeling in her chest however on further discussion it sounds like this may correlate with higher PVC burden, she also had fairly low heart rate in 40s to 50s along with the PVCs so beta-daniel held with improvement in heart rate, symptoms also improved when beta-daniel was held. Given negative ischemic workup and improving symptoms discussed with patient and feel it is reasonable to DC off of metoprolol with plans for event monitor and advised to follow closely with cardiology. Physical Exam Narrative General: Alert, oriented, no apparent distress HEENT: Atraumatic, normocephalic Eyes: Anicteric, normal conjunctiva, extraocular movements grossly intact Neck: Supple Respiratory: Clear to auscultation bilaterally, normal respiratory effort Cardiovascular: Intermittent PVCs GI: Soft, nontender, nondistended Extremities: No edema Musculoskeletal: Moving all extremities Neuro: No overt focal neurological deficits Skin: No rashes appreciated Psych: Cooperative Weight / BMI Weight Weight: 82 kg Body Mass Index (BMI) 28.3 ABG / Lab / Microbiology Data 02/15/25 06:20 02/15/25 06:20 Laboratory: Laboratory Results - last 24 hr 02/15/25 06:20: WBC 5.1, RBC 4.04 L, Hgb 12.4, Hct 36.6 L, MCV 90.6, MCH 30.7, MCHC 33.9, RDW Std Deviation 43.0, RDW Coeff of Sarai 13.0, Plt Count 174, MPV 10.0, Immature Gran % (Auto) 0.200, Neut % (Auto) 43.6 L, Lymph % (Auto) 43.1 H, [place] % (Auto) 9.8, Eos % (Auto) 2.5, Baso % (Auto) 0.8, Absolute Neuts (auto) 2.2, Absolute Lymphs (auto) 2.20, Nucleated RBC % 0, Sodium 141, Potassium 4.1, Chloride 105, Carbon Dioxide 26.0, Anion Gap 10, BUN 8, Creatinine 0.70, Estim Creat Clear Calc 61.77, Est GFR (MDRD) Non-Af 87, BUN/Creatinine Ratio 12.0, G lucose 108 H, Calcium 9.1 Radiography Diagnostic Testing: Radiology Impression Echocardiogram 02/13/25 17:57 Interpretation Summary Mild concentric left ventricular hypertrophy. The left ventricular ejection fraction is 60 %. At least stage I diastolic dysfunction. The left atrium is mildly enlarged. Mild (1+) tricuspid valve insufficiency. Stable appearing bioprosthetic aortic valve apparatus. Mild to moderately dilated aortic root. Compared to prior study, there is no significant change. Ordering Physician: Janett Smith Performed By: Mitchel Hartley RCS D/C Instructions DC O2, CPAP, BIPAP Needs Home O2 Discharge instructions: No Meaningful Use Info Meaningful Use Meaningful Use Diagnoses (Choose all that apply): None applicable Discharge Plan Admission Admit Date/Time: 02/13/25 17:51 Primary Reason for Your Visit: Fatigue, chest discomfort Attending Provider: Janett Smith Primary Care Provider: Neel Ochoa Instructions Patient Instructions: PVCs Additional Instructions / Restrictions: DISCHARGE INSTRUCTIONS PLEASE READ *Please take this with you to your next doctors appointment* - Your metoprolol has been discontinued as it is suspected this contributed to your symptoms -You will be discharged with instructions for a 30-day heart monitor to evaluate for amount of PVCs (extra beats) you have -You will need to follow-up with cardiology upon discharge, please call the office upon discharge to schedule your hospital follow-up appointment ) -Please call your primary care provider's office upon discharge to schedule a hospital follow up within 1 week. -For any concerning signs or symptoms please call 911 or proceed to the nearest emergency department Discharge Orders/Prescriptions Prescriptions: Continued coenzyme Q10 100 mg tablet 100 mg PO QDAY Qty: 90 3RF cholecalciferol (vitamin D3) 50 mcg (2,000 unit) tablet 4,000 unit PO QODAY Patient Comments: 5000 IU Tablet PO QDAY levothyroxine 137 mcg tablet 112 mcg PO DAILY Patient Comments: take 04/15 hydrocodone-acetaminophen 5-325 mg tablet 1 tab PO QHS PRN (Reason: pain) trazodone 100 mg tablet 100 mg PO QHS [id number] Injectable 1 ea IM .month Eliquis 5 mg tablet 5 mg PO BID Qty: 180 3RF Rx Instructions: Pts phone number [phone] Faxed to [facility] Gemtesa 75 mg tablet 75 mg PO QDAY fesoterodine [Toviaz] 4 mg tablet extended release 24 hr 4 mg PO QDAY spironolactone 25 mg tablet 25 mg PO DAILY Qty: 90 3RF Discontinued metoprolol tartrate 25 mg tablet 12.5 mg PO BID Qty: 90 3RF Other Ambulatory Orders: 30 Day Event Recorder Preventi (Urgent) Timeframe: 1 Day Facility: [facility] - Location: Cardiovascular Services Ordered By: Dr. Janett Smith Referrals / Follow Up: Neel Ochoa DO [Primary Care Provider, Family Practice] - In 1 Week Ileana Beltrán PA [Med Staff - Adv Practice Prof, Cardiology] - Within 2 Weeks Disposition Disposition (needs filled in before D/C Order can be placed): Home, Self Care Charges/Coding Visit Charges Inpatient E&M: 21336 Disch Hosp >30min
--- NOTE | 2025-02-15 13:15 | PHA.DC.MR.R ---
Pharmacy PR Med Reconciliation Pharmacy Service has performed discharge medication reconciliation for this patient. The patient's discharge medication list was reviewed for discrepancies and discrepancies were resolved. Medications at Discharge Home Medications coenzyme Q10 100 mg tablet 100 mg PO QDAY #90 tabs 05/22/17 levothyroxine 137 mcg tablet 112 mcg PO DAILY 01/07/23 fesoterodine 4 mg tablet,extended release 24 hr (Toviaz) 4 mg PO QDAY 02/04/24 cholecalciferol (vitamin D3) 50 mcg (2,000 unit) tablet 4,000 unit PO QODAY 07/20/24 hydrocodone-acetaminophen 5-325mg 5mg-325mg 1 tab PO QHS PRN pain 07/20/24 spironolactone 25 mg tablet 25 mg PO DAILY #90 TABLETS 09/29/24 vibegron 75 mg tablet (Gemtesa) 75 mg PO QDAY 12/29/24 apixaban 5 mg tablet (Eliquis) 5 mg PO BID #180 tabs 01/20/25 [id number] intramuscular 1 ea IM .month 01/20/25 trazodone 100 mg tablet 100 mg PO QHS 01/20/25
--- NOTE | 2025-02-15 13:21 | CASEMGMT ---
Patient has order for discharge. RN CM in to discuss needs at discharge. Patient denies needs or help at discharge. Patient is independent in the room. Patient had no further questions or concerns.
[2025-02-15 15:30] VITALS: BP 136/56; PULSE 58; RESP 18; TEMP 36.7; O2SAT 96
== END 2025-02-15 17:29 | disposition home or self-care (01) ==
LOC: ED 17:57 → PCU 18:45
PROVIDERS: Admitting Provider Internal Medicine; Emergency Provider Emergency Medicine; PCP Family Medicine; Visit Provider Internal Medicine
DX: R07.9 Chest pain, unspecified (principal); I48.0 Paroxysmal atrial fibrillation; Z95.3 Presence of xenogenic heart valve; Z90.710 Acquired absence of both cervix and uterus; R73.9 Hyperglycemia, unspecified; Z79.890 Hormone replacement therapy; I10 Essential (primary) hypertension; R00.2 Palpitations; R53.83 Other fatigue; E78.5 Hyperlipidemia, unspecified; I49.3 Ventricular premature depolarization; E03.9 Hypothyroidism, unspecified; G47.33 Obstructive sleep apnea (adult) (pediatric); Q23.81 Bicuspid aortic valve; R51.9 Headache, unspecified; N32.81 Overactive bladder
CPT/HCPCS: 36415; 71046; 78452; 80048; 80061; 83735; 84443; 84484; 85025; 93005; 93017; 93306; 99221; 99285; A9500; A4216; G0378; J2785

== ENCOUNTER → 2025-03-24 | Outpatient (CLI) | payer MEDICARE, OTHER, SELFPAY ==
[2025-03-24 11:27] LABS: Hematocrit 41.6 % (37-47); Hemoglobin 13.8 g/dL (12.0-15.0); Immature Granulocytes Count 0.010 X10^3/uL (0.0-0.0); Mean Corp Hgb Conc 33.2 g/dL (32-36); Mean Corpuscular Volume 91.8 fL (81-99); Mean Platelet Vol. 10.5 fl (6.2-12.0); NRBC Flagged by Analyzer 0 % (0-5); Platelet Count 209 K/mm3 (150-450); RBC Distribution Width CV 12.7 % (11.6-14.6); RBC Distribution Width SD 42.5 fl (35.1-43.9); Red Blood Count 4.53 M/mm3 (4.2-5.4); White Blood Count 7.2 K/mm3 (4.4-11.0)
[2025-03-24 12:26] LABS: AST(SGOT) 19 U/L (<=31); Alanine Aminotransfer ALT/SGPT 16 U/L (<=34); Albumin, Serum 4.3 g/dL (3.4-4.8); Alkaline Phosphatase 66 U/L (35-104); Anion Gap 12 (5-15); BUN 8 mg/dL (4-19); BUN/Creat Ratio 12.6 RATIO (10-20); Calcium,Total 9.4 mg/dL (7.6-11.0); Carbon Dioxide 25.3 mmol/L (21.0-32.0); Chloride 104 mmol/L (98-108); Cholesterol 218 mg/dL (<=200); Globulin 2.7 g/dL (2.2-4.2); Glucose 98 mg/dL (70-99); Low Density Lipoprotein Calc. 134 mg/dL; Potassium 4.0 mmol/L (3.3-5.1); Triglycerides 185 mg/dL; Uric Acid 6.1 mg/dL (2.6-6.0); Very Low Density Lipoprotein 37 mg/dL (5-40); Vitamin D,25 Hydroxy 48.0 ng/mL (30-100); cholesterol:hdl ratio screen 4.27
--- OUTSIDE RECORDS SUMMARY | 2025-03-24 13:28 | XMS RPT_ITS | CCD ---
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 Micah Díaz Primary Care Provider Dr. Micah Díaz Referring Provider Leigh Ann ALEGRE, PA Ileana Briggs Attending Provider Dr. Angel Fairchild Attending Provider Bre LONG, Micah A Primary Care Provider Lynn Christensen Unavailable Bre LONG, Micah A Primary Care Provider Lynn Christensen Unavailable [phone] Bre LONG, Micah A Primary Care [...] -[phone] Dr. Micah Díaz Referring Provider [phone] Leigh Ann ALEGRE, PA Ileana Briggs Attending [...] Micah Díaz DO Primary Care Provider [phone] Dr. Matti Camarillo DO Attending Provider Dr. Matti Camarillo DO Referring Provider Bre LONG, Dr. Shaikh Primary Care Provider Yaoing DPM, Dr. Alvarado Attending Provider Wunning DPM, Dr. Alvarado Referring Provider Amparo FLEMING, Dr. Bailey Attending Provider [facility], Dr. Shaikh Referring Provider [facility], Dr. Shaikh Primary Care Physician Utamari DO, Dr. Chino Attending Physician Wunning DPM, Dr. Alvarado Attending Physician [phone] Amparo FLEMING, Dr. Bailey Attending Physician [facility], Dr. Shaikh Primary Care Physician [facility], Dr. Shaikh Attending Physician Aurelio FLEMING, Dr. Montelongo Attending Physician [facility], Dr. Shaikh Primary Care Physician Wunning DPM, Dr. Alvarado Attending Physician Wunning DPM, Dr. Alvarado Referring Provider Wunning DPM, Dr. Alvarado Attending Physician Wunning DPM, Dr. Alvarado Referring Provider Ileana Carter Attending Physician Micah Díaz Attending Unavailable Bre, Micah Primary Care Unavailable Matti Camarillo Attending Unavailable Matti Camarillo Referring Unavailable Bre, Micah Primary Care Unavailable Bre, Micah Referring Unavailable Bre, Micah Primary Care Unavailable Lynn Christensen Attending Unavailable Bre, Micah Primary Care Unavailable Christiano Medeiros Attending Unavailable Christiano Medeiros Referring Unavailable Bre, Micah Referring Unavailable Bre, Micah Primary Care Unavailable Lynn Christensen Attending Unavailable Bre, Micah Primary Care Unavailable Bre, Micah Referring Unavailable Lynn Christensen Attending Unavailable Bre, Micah Primary Care Unavailable Bre, Micah Referring Unavailable Lynn Christensen Attending Unavailable Bre, Micah Primary Care Unavailable Irene Melgar Attending Unavailable Janett Smith Consulting Unavailable Janett Smith Admitting Unavailable Bre, Micah Referring Unavailable Bre, Micah Primary Care Unavailable Ileana Carter Attending Unavail able Lynn Christensen Attending Unavailable Bre, Micah Referring Unavailable Bre, Micah Primary Care Unavailable Bre, Micah Referring Unavailable WynesLynn murcia Attending Unavailable Bre, Micah Primary Care Unavailable Bre, Micah Primary Care Unavailable Christiano Medeiros Attending Unavailable JuannningChristiano Referring Unavailable Bre, Micah Primary Care Unavailable Janett Smith Attending Unavailable Janett Smith Admitting Unavailable Matti Camarillo Referring Unavailable Bre, Micah Primary Care Unavailable Matti Camarillo Attending Unavailable Bre, Micah Primary Care Unavailable Christiano Medeiros Attending Unavailable JuannnChristiano villalba Referring Unavailable Bre, Micah Attending Unavailable Bre, Micah Referring Unavailable Bre, Micah Primary Care Unavailable Bre, Micah Primary Care Unavailable Rene Lomax Attending Unavailable Rene Lomax Referring Unavailable Bre, Micah Referring Unavailable Bre, Micah Primary Care Unavailable Bala CANAS, Milka Attending Unavailable Bre, Micah Primary Care Unavailable Angel Fairchild Attending Unavailable Bre, Micah Primary Care Unavailable Bala CANAS, Milka Attending Unavailable Bre, Micah Primary Care Unavailable Bre, Micah Referring Unavailable Reginald Carey Attending Unavailable Bre, Micah Primary Care Unavailable Lynn Christensen Attending Unavailable Janett Smith Attending Unavailable Bre, Micah Referring Unavailable Bre, Micah Primary Care Unavailable Lynn Christensen Attending Unavailable Bre, Micah Referring Unavailable Bre, Micah Primary Care Unavailable Lynn Christensen Attending Unavailable Bre, Micah Referring Unavailable Bre, Micah Primary Care Unavailable Lynn Christensen Attending Unavailable Bre, Micah Primary Care Unavailable Lynn Christensen Attending Unavailable Bre, Micah Primary Care Unavailable Bre, Micah Referring Unavailable GabynesLynn murcia Attending Unavailable Bre, Micah Referring Unavailable Bre, Micah Primary Care Unavailable GabynesLynn murcia Attending Unavailable Bre, Micah Primary Care Unavailable Bala CANAS, Milka Attending Unavailable Bala CANAS, Milka Referring Unavailable Dr. Micah Díaz DO Primary Care Physician Amparo FLEMING, Dr. Bailey Attending Physician Dr. Micah Díaz DO Referring Provider [phone] Micah Díaz DO Attending Physician Aurelio FLEMING, Dr. Montelongo Attending Physician Mala PHAM, Dr. Alvarado Attending Physician Mala PHAM, Dr. Alvarado Referring Provider Ileana Carter Attending Physician Dr. Reginald Zaldivar DO Emergency Department Physi gen Luis FLEMING, Dr. Rowland Admitting Physician Luis FLEMING, Dr. Rowland Attending Physician Luis FLEMING, Dr. Rowland Nurse Practitioner Ramón FLEMING, Dr. Bonilla Attending Physician Allergies Allergy Classification Reported Allergen(s) Allergy Type Date of Onset Reaction(s) Facility (1 source) Amitriptyline Drug Allergy 1 [facility] Work Phone: (2 sources) gabapentin; Translations: [NEURONTIN] Drug Allergy 1 [facility] Work Phone: (20 sources) Naproxen; Translations: [NAPROXEN] Drug Allergy 6 [facility] Work Phone: (20 sources) traMADol; Translations: [TRAMADOL] Drug Allergy 6 Unknown [facility] Work Phone: (1 source) valdecoxib; Translations: [BEXTRA] Drug Allergy 1 [facility] Work Phone: (20 sources) Amitriptyline; Translations: [AMITRIPTYLINE] Drug Allergy 4 Rash [facility] Work Phone: (20 sources) Amitriptyline; Translations: [AMITRIPTYLINE HCL] Drug Allergy 6 Intolerance [facility] (20 sources) oxybutynin; Translations: [OXYBUTYNIN] Drug Allergy 2 Swelling [facility] (20 sources) valdecoxib; Translations: [VALDECOXIB] Drug Allergy 4 Rash [facility] Work Phone: (9 sources) tolterodine; Translations: [TOLTERODINE] Drug Allergy 2 Other: See Comments [facility] (20 sources) amLODIPine; Translations: [AMLODIPINE] Drug Allergy 3 Swelling [facility] (1 source) Amitriptyline Drug Allergy 5 [facility] (1 source) amLODIPine Drug Allergy 5 [facility] (1 source) valdecoxib Drug Allergy 5 [facility] Medications Current Medications Medication Drug Class(es) Dates Sig (Normalized) Sig (Original) acetaminophen 325 mg / HYDROcodone bitartrate 5 mg oral tablet (20 sources) Opioid Agonist Start: 07-20-2024 Start: 04-23-2024 take 1 tablet by dereje [...] oral capsule (1 source) Cephalosporin Antibacterial Start: 022 End: cephALEXin 500 mg cap(s) (KEFLEX) cholecalciferol 0.05 mg oral tablet (20 sources) Vitamin D Start: 025 take 1 tablet by mouth every other day Start: 07-20-2024 take 1 tablet by dereje th once daily Cholecalciferol (Vitamin D3) 50 mcg (2,000 unit) tablet Active 4000 U PO daily July 20, 2024 11:24am Complies with drug therapy Start: 05-19-2017 End: 07-20-2024 Cholecalciferol (Vitamin D3) 2,000 unit tablet Discontinued 0 PO daily May 19, 2017 12:00am July 20, 2024 10:25am 5000 IU Tablet PO QDAY Start: 10-03-2010 VITAMIN D 2000 UNIT TABS 6000 IU tablet by mouth once a day CHOLECALCIFEROL [id number] Angel Fairchild MD cholecalciferol, vitamin D3, (VITAMIN D3 ORAL) (20 sources) cholecalciferol, vitamin D3, (VITAMIN D3 ORAL) Take by mouth. Active cholecalciferol, vitamin D3, (VITAMIN D3 ORAL) Take by mouth. 0 Active Comment on above: Take by mouth. ubidecarenone 100 mg oral tablet (20 sources) Start: 05-19-2017 End: 05-22-2017 take 10 tablets by mouth once daily Start: 05-19-2015 take 1 tablet by dereje once daily CO Q-10 100 MG CAPS One tablet by mouth daily COENZYME Q10 [id number] Angel Fairchild MD coenzyme Q10 (CO ENZYME [...] extended release oral tablet (20 sources) Start: 02-22-2025 take 1 tablet by mouth once daily Start: 02-04-2024 End: 02-22-2025 take 1 tablet by mouth once daily Fesoterodine (Toviaz) 4 mg tablet extended release 24 hr Discontinued 4 mg PO daily February 03, 2024 11:00pm February 22, 2025 8:24am Start: 05-14-2023 End: 10-28-2023 take 1 tablet by mouth once daily Fesoterodine 4 mg tablet extended release 24 hr Discontinued 4 mg PO DAILY May 14, 2023 12:00am October 28, 2023 10:14am Start: 10-03-2022 End: 01-07-2023 take 1 tablet by mouth once daily Fesoterodine 4 mg tablet extended release 24 hr Discontinued 4 mg PO DAILY October 02, 2022 11:00pm January 07, 2023 1:25pm [id number]-Gtgkklrp injectable (4 sources) Start: 01-20-2025 Start: 01-20-2025 [id number]-K05-Cebio ins injectable Active NMA IM January 20, 2025 12:00am Complies with drug therapy lactobacillus acidophilus [id number] unt oral capsule (20 sources) Lactobacillus ac idophilus (PROBIOTIC) 10 billion cell cap Take by mouth. Active Comment on above: Take by mouth. levothyroxine sodium 0.112 mg oral tablet (20 sources) l-Thyroxine Start: 03-04-2023 levothyroxine (SYNTHROID) 112 mcg tablet TAKE 1 TABLET BY MOUTH EVERY DAY IN THE MORNING EXCEPT ON SUNDAYS ONLY TAKE EXTRA 1/2 TAB 03/04/2023 Active Start: 01-07-2023 Start: 01-07-2023 take 112 ug by mouth once daily Levothyroxine Active 112 MCG PO DAILY January 07, 2023 2:24pm Start: 05-09-2020 End: 01-07-2023 take 1 tablet by mouth once daily Levothyroxine 137 mcg tablet Discontinued 137 ug PO DAILY May 09, 2020 12:00am January 07, 2023 1:26pm Start: 05-19-2017 End: 05-09-2020 take 1 tablet by mouth once daily Levothyroxine 125 mcg tablet Discontinued 125 ug PO daily 0 May 19, 2017 12:00am May 09, 2020 11:13am Start: 10-02-2011 take 1 tablet by dereje th once daily LEVOTHYROXINE SODIUM 112 MCG TABS One tablet by mouth daily LEVOTHYROXINE SODIUM [id number] Angel Fairchild MD Start: 10-02-2011 take 1 tablet by dereje th once daily LEVOTHROID 125 MCG TABS One tablet by mouth daily LEVOTHYROXINE SODIUM Angel Fairchild MD Start: 10-03-2010 take 1 tablet by dereje th once daily LEVOTHYROXINE SODIUM 100 MCG TABS One tablet by mouth daily LEVOTHYROXINE SODIUM [id number] Gloria Esparza End: 03-29-2024 Levothyroxine 100 mcg [...] oral tablet (20 sources) beta-Adrenergic Daniel Start: take 0.5 tablet by mouth every twelve hours metoprolol tartrate, short acting, (LOPRESSOR) 25 mg tablet Take 0.5 tablets by mouth every 12 hours. 04/17/2024 Active Start: 12-30-2022 End: 02-15-2025 Metoprolol Tartrate 25 mg ta blet Discontinued 12.5 mg PO TWICE A DAY 90 January 23, 2023 1:47pm October 28, 2023 10:37am dose has been decreased. Start: 12-30-2022 End: 01-23-2023 take 12.5 mg by mouth twice daily Metoprolol Tartrate Active 12.5 MG PO TWICE A DAY January 23, 2023 2:47pm Start: 05-19-2017 End: 12-30-2022 take 1 tablet by mouth twice daily Metoprolol Tartrate 25 mg tablet Discontinued 25 mg PO TWICE A DAY 180 December 31, 2018 10:11am December 30, 2022 4:15pm Start: 09-23-2011 take 1 tablet by dereje th twice daily METOPROLOL TARTRATE 25 MG TABS One tablet by mouth twice daily METOPROLOL TARTRATE [id number] Angel Fairchild MD Start: 12-18-2010 METOPROLOL TAR TRATE 50 MG TABS 1/2 tablet 2 X daily METOPROLOL TARTRATE [id number] Angel Fairchild MD Start: 10-28-2010 End: 03-29-2024 [...] {tbl} PO DAILY 0 May 26, 2018 12:00am December 07, 2024 2:39pm Start: 05-26-2018 End: 12-07-2024 take 50-800 tablets [...] 1:00am traZODone hydrochloride 100 mg oral tablet (4 sources) Serotonin Reuptake Inhibitor Start: 01-20-2025 take 1 tablet by mouth at bedtime Vibegron (20 sources) Start: 02-22-2025 take 1 tablet by mouth once daily Start: 12-29-2024 End: 02-22-2025 take 1 tablet by mouth once daily Vibegron (Gemtesa) 75 mg tablet Discontinued 75 mg PO daily December 28, 2024 11:00pm February 22, 2025 8:24am Start: 12-29-2024 take 1 tablet by dereje th once daily Start: 12-29-2024 take 1 tablet by dereje th once daily Vibegron (Gemtesa) 75 mg tablet Active 75 mg PO daily December 29, 2024 12:00am Complies with drug therapy Start: 02-04-2024 End: 07-20-2024 take 1 tablet by mouth once daily Vibegron (Gemtesa) 75 mg tablet Discontinued 75 mg PO daily February 03, 2024 11:00pm July 20, 2024 10:38am Start: 02-04-2024 End: 07-20-2024 take 1 tablet [...] tablet Discontinued 75 mg PO DAILY October 02, 2022 11:00pm January [...] October 03, 2022 12:00am January 07, 2023 2:pm Start: 10-03-2022 take 1 tablet by dereje [...] mg PO DAILY 30 May 31, 2022 10:21am June 13, 2022 4:01pm Start: 05-31-2022 End: 05-31-2022 take 2.5 mg by mouth once daily Amlodipine 5 mg tablet Discontinued 2.5 mg PO DAILY May 31, 2022 10:19am May 31, 2022 10:21am Start: 05-31-2022 End: 05-31-2022 take 2.5 mg by mouth once daily Amlodipine Discontinue d 2.5 MG PO DAILY May 31, 2022 11:19am May 31, 2022 11:21am Start: 05-09-2020 End: 03-29-2024 take 1 tablet by mouth once daily Amlodipine 5 mg tablet Discontinued 5 mg PO DAILY May 09, 2020 12:00am May 31, 2022 10:21am Comment on above: Take 5 mg by mouth o nce daily. amoxicillin 500 mg oral tablet (20 sources) Penicillin-class Antibacterial Start: End: take 1 tablet by mouth every hour Amoxicillin 500 mg tablet Discontinued 0 PO .COMPLEX 0 May 19, 2017 12:00am January 01, 2021 7:38am 500mg. 4 Tablets PO 1 hr prior to procedure PO Start: 08-30-2013 take 4 tablets by mo uth every hour AMOXICILLIN 500 MG TABS 4 tablets by mouth 1 hr prior to procedure AMOXICILLIN [id number] Angel Fairchild MD apixaban 5 mg oral [...] A DAY 180 3 May 04, 2024 4:38pm January 20, 2025 10:41am aspirin 81 mg delayed release oral tablet (20 sources) Platelet Aggregation Inhibitor, Nonsteroidal Anti-inflammatory Drug Start: 10-03-2010 End: 03-29-2024 Aspirin (Adult Low Dose Aspirin) 81 mg tablet,delayed release (DR/EC) Discontinued 81 mg PO DAILY May 09, 2020 12:00am October 03, 2022 9:55am Start: 10-03-2010 take 1 tablet by dereje th once daily in the evening ASPIRIN 81 MG TABS 1 tablet by mouth every evening ASPIRIN [id number] Gloria Esparza Comment on above: Take 1 tablet by dereje th once daily. atropine sulfate 0.025 mg / diphenoxylate hydrochloride 2.5 mg oral tablet (20 sources) Anticholinergic, Cholinergic Muscarinic Antagonist, Antidiarrheal Start: 12-18-2010 LOMOTIL 2.5-0.025 MG TABS As needed DIPHENOXYLATE-ATROPINE [id number] Gloria Esparza Start: 10-22-2010 diphenoxylate- atropine (LOMOTIL) [...] on above: Take 1 capsule by mo [facility] three times daily as needed for Cough. Swallow whole please. 12 hr buPROPion hydrochloride 150 mg extended release oral tablet (20 sources) Aminoketone Start: 05-04-19 End: 05-04-19 Bupropion Hcl 150 mg tablet sustained-release 12 hr Discontinued PO May 04, 2019 12:00am May 04, 2019 11:23am Start: 05-04-2019 End: 05-04-2019 Bupropion Hcl Discontinued P O May 04, 2019 1:00am May 04, 2019 12:23pm calcium polycarbophil (1 source) Start: 05-19-2015 FIBERTAB 625 MG TABS as directed CALCIUM POLYCARBOPHIL Angel Fairchild MD cefdinir 300 mg oral capsule (5 sources) Cephalosporin Antibacterial Start: 01-17-2025 End: 01-26-2025 take 1 capsule by mouth twice daily Cefdinir 300 mg capsule Discontinued 300 mg PO TWICE A DAY 14 0 January 16, 2025 11:00pm January 26, 2025 10:30am diazePAM 5 mg oral tablet (20 sources) Benzodiazepine Start: 05-08-2021 End: 05-31-2022 take 1 tablet by mouth at bedtime as needed Diazepam 5 mg tablet Discontinued 5 mg PO AT BEDTIME as needed May 08, 2021 12:00am May 31, 2022 9:54am diclofenac sodium 0.01 mg/mg topical gel (3 [...] tablet by mouth twice daily DOCUSATE SODIUM [id number] Angel Fairchild MD dronedarone 400 mg oral tablet (20 sources) Antiarrhythmic Start: 11-01-2022 End: 05-18-2024 take 1 tablet by mouth twice daily at mealtime Dronedarone (Multaq) 400 mg tablet Discontinued 400 mg PO TWICE A DAY 1 October 31, 2022 11:00pm October 28, 2023 10:14am must administer with a meal/food DULoxetine 30 mg delayed release oral capsule (20 sources) Serotonin and Norepinephrine Reuptake Inhibitor Start: 01-01-2021 End: 05-08-2021 Duloxetine 30 mg capsule,delayed release(DR/EC) Discontinued NMA PO December 31, 2020 11:00pm May 08, 2021 1:27pm Start: 01-01-2021 End: 05-08-2021 Duloxetine Discontinued EACH PO January 01, 2021 12:00am May 08, 2021 2:27pm ESTROGENS, CONJUGATED CREA (2 sources) Estrogen Start: 10-03-2010 PREMARIN CREA 2mg/mL, topical cream biest: Apply as directed ESTROGENS, CONJUGATED CREA [id number] Gloria Esparza Start: 10-03-2010 End: 10-02-2011 PREMARIN CREA 2mg/mL, topica l cream biest: Apply as directed ESTROGENS, CONJUGATED CREA [id number] Angel Fairchild MD ferrous gluconate 324 mg oral tablet (19 sources) Start: 04-25-2023 End: 07-20-2024 take 1 tablet by mouth once daily Ferrous Gluconate 324 mg (37.5 mg iron) tablet Discontinued 324 mg PO DAILY April 25, 2023 12:00am July 20, 2024 10:38am ferrous sulfate (5 sources) End: 05-18-2024 FERROUS [...] tablet by mouth daily at bedtime FIBER [id number] Angel Fairchild MD furosemide 20 mg oral tablet (20 sources) Loop Diuretic Start: 08-07-2023 End: 08-21-2023 take 1 tablet by mouth once daily Furosemide 20 mg tablet Discontinued 20 mg PO DAILY 90 August 07, 2023 1:26pm August 21, 2023 8:33am Start: 05-14-2023 End: 08-07-2023 Furosemide 20 mg tablet Disc ontinued 20 mg PO .COMPLEX 30 0 June 09, 2023 8:12am August 07, 2023 1:27pm 20 mg orally prn for swelling. Call if needed more than 2 times per month; gabapentin 600 mg oral tablet (20 sources) Anti-epileptic Agent Start: 03-24-2022 End: 07-20-2024 take 1 tablet by mouth at bedtime Gabapentin 600 mg tablet Discontinued 600 mg PO AT BEDTIME May 31, 2022 12:00am July 20, 2024 10:25am Start: 05-22-2017 End: 05-08-2021 take 1 tablet by mouth at bedtime Gabapentin 600 mg tablet Discontinued 600 mg PO AT BEDTIME May 22, 2017 12:00am May 08, 2021 1:27pm Start: 05-19-2017 End: 05-22-2017 take 1 tablet by mouth once daily at bedtime Gabapentin 300 mg capsule Discontinued 0 PO AT BEDTIME May 19, 2017 12:00am May 22, 2017 10:15am 300mg. 2 tablets PO QHS Start: 05-21-2016 take 2 tablets by mo uth at bedtime NEURONTIN 300 MG CAPS Two tablets by mouth at bedtime. GABAPENTIN [id number] Angel Fairchild MD End: 03-22-2022 GABAPENTIN ORAL Take by mout h. 0 03/22/2022 Discontinued GABAPENTIN ORAL Take by mouth. 0 Active Comment on above: Take by mouth. LORazepam 0.5 mg oral tablet (2 sources) Benzodiazepine Start: 1 End: 5 take 1 tablet by mouth at bedtime ATIVAN 0.5 MG TABS One tablet by mouth at bedtime. LORAZEPAM [id number] Angel Fairchild MD losartan potassium 25 mg oral tablet (20 sources) Angiotensin 2 Receptor Daniel Start: 3 End: Losartan 25 mg tablet Discontinued 12.5 mg PO DAILY 90 3 November 04, 2022 12:20pm April 15, 2023 5:45pm Start: 11-04-2022 End: 01-02-2024 take 12.5 mg by mouth once daily Losartan Discontinued 12.5 MG PO DAILY 90 November 04, 2022 1:20pm April 15, 2023 6:45pm Start: 06-13-2022 End: 11-04-2022 take 1 tablet by mouth once daily Losartan 25 mg tablet Discontinued 25 mg PO DAILY 90 June 13, 2022 12:00am November 04, 2022 12:21pm METHYLPREDNISOLONE (1 source) Corticosteroid Start: 09-03-2011 End: 09-08-2011 MEDROL 4 MG TBPK take as directed: 5 pills day one, 4 pills day 2, 3 pills day 3, 2 pills day 4, 1 pill day 5 METHYLPREDNISOLONE [id number] Georgia Romano MULTIPLE VITAMIN (2 sources) Start: 10-03-2010 take 1 tablet by mouth once daily MULTIVITAMINS TABS One tablet by mouth daily MULTIPLE VITAMIN [id number] Gloria Esparza Start: 10-03-2010 End: 10-02-2011 take 1 tablet by mouth once daily MULTIVITAMINS TABS One tablet by mouth daily MULTIPLE VITAMIN [id number] Angel Fairchild MD niacin 500 mg oral tablet (2 sources) Nicotinic Acid Start: 10-03-2010 End: 10-02-2011 take 1 tablet by mouth three times daily NIACIN 500 MG TABS One tablet by mouth three times daily NIACIN [id number] Angel Fairchild MD nitrofurantoin, macrocrystals 25 mg / nitrofurantoin, monohydrate 75 mg oral capsule (13 sources) Nitrofuran Antibacterial Start: 11-18-2024 End: 01-12-2025 take 1 capsule by mouth twice daily at mealtime Nitrofurantoin Monohyd/M-Cryst (Macrobid) 100 mg capsule Discontinued 100 mg PO TWICE A DAY 14 0 November 17, 2024 11:00pm January 12, 2025 10:37am must administer with a meal/food omeprazole 40 mg oral tablet (2 sources) Proton Pump Inhibitor Start: 10-03-2010 End: 10-02-2011 take 1 tablet by mouth once daily PRILOSEC 40 MG CPDR One tablet by mouth daily OMEPRAZOLE [id number] Angel Fairchild MD OTC PRODUCT (18 sources) [...] 10 mg PO DAILY May 08, 2021 12:00am May 31, 2022 9:53am pantoprazole 40 mg delayed release oral tablet (20 sources) Proton Pump Inhibitor Start: 9 End: 3 take 1 tablet by mouth once daily Pantoprazole 40 mg tablet,delayed release (DR/EC) Discontinued 40 mg PO DAILY May 08, 2021 1:26pm May 31, 2022 9:54am Comment on above: Pantoprazole Sodium Active 40 MG DAILY May 26, 2018 9:59am polypodium leucotomos 240 mg oral capsule (20 sources) Start: 8 End: 1 take 1 tablet by mouth once daily Polypodium Leucotomos Extract 240 mg capsule Discontinued 0 PO daily 0 May 19, 2017 12:00am May 09, 2020 11:15am 240 Mg. 1 Tablet PO QDAY Start: 11-03-2013 take 1 tablet by dereje th once daily HELIOCARE 240 MG CAPS One tablet by mouth daily POLYPODIUM LEUCOTOMOS [id number] Ileana Beltrán PA-C End: 03-22-2022 POLYPODIUM LEUCOTOMOS EXTRAC T (HELIOCARE ORAL) Take by mouth. 0 03/22/2022 Discontinued POLYPODIUM LEUCO TOMOS EXTRACT (HELIOCARE ORAL) Take by mouth. 0 Active Comment on above: Take by mouth. PROBIOTIC PRODUCT (1 source) Start: 05-19-2015 take 1 tablet by mouth once daily PROBIOTIC DAILY CAPS One tablet by mouth daily PROBIOTIC PRODUCT [id number] Angel Fairchild MD PROGESTERONE MICRONIZED CAPS (2 sources) Progesterone Start: 10-03-2010 PROMETRIUM CAPS 100%, 100mg 1 tablet by mouth daily (Compounded) PROGESTERONE MICRONIZED CAPS [id number] Gloria Esparza Start: 10-03-2010 End: 10-02-2011 PROMETRIUM CAPS 100%, 100mg 1 tablet by mouth daily (Compounded) PROGESTERONE MICRONIZED CAPS [id number] Angle Fairchild MD rOPINIRole 0.25 mg oral tablet [...] 10 mg PO DAILY May 31, 2022 12:00am October 03, 2022 8:54am spironolactone 25 mg oral tablet (20 sources) Aldosterone Antagonist Start: 11-04-2022 End: 09-29-2024 take 1 tablet by mouth once daily Spironolactone 25 mg tablet Discontinued 25 mg PO DAILY 90 3 September 27, 2024 10:54am September 29, 2024 10:07am 24 hr tolterodine tartrate 4 mg extended release oral capsule (10 sources) Cholinergic Muscarinic Antagonist Start: 09-26-2021 End: 09-21-2022 take 1 capsule by mouth once daily tolterodine ER (DETROL LA) 4 mg 24 hr capsule Take 1 capsule by mouth once daily. 30 capsule 11 09/26/2021 03/27/2022 Discontinued Comment on above: Take 1 capsule by mo nmh once daily. 24 hr trospium chloride 60 mg extended release oral capsule (16 sources) Cholinergic Muscarinic Antagonist Start: 01-02-2022 End: 03-29-2024 take 1 capsule by mouth once daily Trospium (SANCTURA SR) 60 mg cp24 Take 1 capsule by mouth once daily. 30 capsule 3 01/08/2022 03/29/2024 Discontinued Comment on above: Take 1 capsule by mo [facility] once daily. Vitamin B 12 (1 source) Vitamin B12 Start: 05-12-2014 VITAMIN B-12 1000 MCG/15ML LIQD injections, as directed CYANOCOBALAMIN [id number] Angel Fairchild MD B COMPLEX VITAMINS (2 sources) Start: 10-03-2010 take 1 tablet by mouth once daily VITAMIN B COMPLEX TABS One tablet by mouth daily B COMPLEX VITAMINS [id number] Gloria Esparza Start: 10-03-2010 End: 05-12-2014 take 1 tablet by mouth once daily VITAMIN B COMPLEX TABS One tablet by mouth daily B COMPLEX VITAMINS [id number] Angel Fairchild MD Problems Active Problems Problem [...] sources) Atrial fibrillation; Translations: [Unspecified atrial fibrillation] Onset: 02-16-2025 10-03-2022 Chronic Complications of surgical procedures or [...] Elaina-Pérez pericardial valve. 10/23/2010 Malaise and fatigue (19 sources) Fatigue; Translations: [Other fatigue] 10-28-2023 Episodic Nonspecific chest pain (20 sources) Chest pain; Translations: [Chest pain, unspecified] Onset: 02-16-2025 05-31-2022 Episodic Osteoarthritis (20 sources) Osteoarthritis of hip; Translations: [Osteoarthritis of right hip joint] Onset: 05-23-2015 05-23-2015 Chronic Other acquired deformities (20 sources) Spondylolysis; Translations: [Spondylolysis, lumbar region] 01-01-2021 Episodic Other aftercare (8 sources) Anticoagulant control - finding; Translations: [MCC (current) use of anticoagulants] 01-20-2025 Episodic Other connective tissue disease (18 sources) Swelling of lower limb; Translations: [Other [...] Post-Op Visit Onset: 12-26-2021 Urinary tract infections (18 sources) Urinary tract infectious disease; Translations: [Urinary tract infection, site not specified] Onset: 02-21-2025 11-17-2024 Episodic Past or Other Problems Problem [...] Test Name Value Interpretation Reference Range Facility Basic Metabolic Profile (BMP )on 02-21-2025 BUN Normal - [facility] Comment on above: Result Comment: Canc elled via OM: Order cancelled - Patient discharged Performed By: #### L 100.0100, L500.2500 ####[facility] [address] [facility] [address] BUN/CRE Normal - [facility] Comment on above: Result Comment: Canc elled via OM: Order cancelled - Patient discharged Performed By: #### L 100.0100, L500.2500 ####[facility] [address] [place], [address] Calcium Normal 7.6-11.0 [facility] Comment on above: Result Comment: Canc elled via OM: Order cancelled - Patient discharged Performed By: #### L 100.0100, L500.2500 ####[facility] [address] [place], [address] CL Normal 98-108 [facility] Comment on above: Result Comment: Canc elled via OM: Order cancelled - Patient discharged Performed By: #### L 100.0100, L500.2500 ####[facility] [address] [place], [address] CO2 Normal 21.0-32.0 [facility] Comment on above: Result Comment: Canc elled via OM: Order cancelled - Patient discharged Performed By: #### L 100.0100, L500.2500 ####[facility] [address] [place], [address] CREAT,SERUM Normal 0.70-1.20 [facility] Comment on above: Result Comment: Canc elled via OM: Order cancelled - Patient discharged Performed By: #### L 100.0100, L500.2500 ####[facility] [address] [place], [address] eGFR Normal >60 [facility] Comment on above: Result Comment: Canc elled via OM: Order cancelled - Patient discharged Performed By: #### L 100.0100, L500.2500 ####[facility] [address] [place], [address] GAP Normal 5-15 [facility] Comment on above: Result Comment: Canc elled via OM: Order cancelled - Patient discharged Performed By: #### L 100.0100, L500.2500 ####[facility] [address] [place], [address] GLU Normal 70-99 [facility] Comment on above: Result Comment: Canc elled via OM: Order cancelled - Patient discharged Performed By: #### L 100.0100, L500.2500 ####[facility] [address] [place], [address] Potassium Normal 3.3-5.1 [facility] Comment on above: Result Comment: Canc elled via OM: Order cancelled - Patient discharged Performed By: #### L 100.0100, L500.2500 ####[facility] [address] [place], [address] Basic Metabolic Profile (BMP) Normal 133-145 [facility] Comment on above: Result Comment: Canc elled via OM: Order cancelled - Patient discharged Performed By: #### L 100.0100, L500.2500 ####[facility] [address] [place], [address] CBC W/Diff, Automatedon 11-1 0-2024 Absolute Neut Normal 2.0-7.7 [facility] Comment on above: Result Comment: Canc elled via OM: Order cancelled - Patient discharged Performed By: #### L 100.0100, L500.2500 ####[facility] [address] [place], [address] HCT Normal 37-47 [facility] Comment on above: Result Comment: Canc elled via OM: Order cancelled - Patient discharged Performed By: #### L 100.0100, L500.2500 ####[facility] [address] [place], [address] HGB Normal 12.0-15.0 [facility] Comment on above: Result Comment: Canc elled via OM: Order cancelled - Patient discharged Performed By: #### L 100.0100, L500.2500 ####[facility] [address] [place], [address] MCH Normal 27.0-32.0 [facility] Comment on above: Result Comment: Canc elled via OM: Order cancelled - Patient discharged Performed By: #### L 100.0100, L500.2500 ####[facility] [address] [place], [address] MCHC Normal 32-36 [facility] Comment on above: Result Comment: Canc elled via OM: Order cancelled - Patient discharged Performed By: #### L 100.0100, L500.2500 ####[facility] [address] [place], [address] MCV Normal 81-99 [facility] Comment on above: Result Comment: Canc elled via OM: Order cancelled - Patient discharged Performed By: #### L 100.0100, L500.2500 ####[facility] [address] [place], [address] NEUT% Normal 47-70 [facility] Comment on above: Result Comment: Canc elled via OM: Order cancelled - Patient discharged Performed By: #### L 100.0100, L500.2500 ####[facility] [address] [place], [address] PLT Normal 150-450 [facility] Comment on above: Result Comment: Canc elled via OM: Order cancelled - Patient discharged Performed By: #### L 100.0100, L500.2500 ####[facility] [address] [place], [address] RBC Normal 4.2-5.4 [facility] Comment on above: Result Comment: Canc elled via OM: Order cancelled - Patient discharged Performed By: #### L 100.0100, L500.2500 ####[facility] [address] [place], [address] RDW CV Normal 11.6-14.6 [facility] Comment on above: Result Comment: Canc elled via OM: Order cancelled - Patient discharged Performed By: #### L 100.0100, L500.2500 ####[facility] [address] [place], [address] RDW SD Normal 35.1-43.9 [facility] Comment on above: Result Comment: Canc elled via OM: Order cancelled - Patient discharged Performed By: #### L 100.0100, L500.2500 ####[facility] [address] [place], [address] WBC Normal 4.4-11.0 [facility] Comment on above: Result Comment: Canc elled via OM: Order cancelled - Patient discharged Performed By: #### L 100.0100, L500.2500 ####[facility] [address] [place], [address] Laboratory - Chemistry and C hemistry - challengeOrdered By: Lynn Christensen on 02-21-2025 Bilirubin Ql (U) Negative [facility] Glucose Ql (U) Negative [facility] Ketones Ql (U) Negative [facility] pH (U) 6 [pH] [facility] Specific gravity (U) [Rel density] 1.005 [facility] Urobilinogen (U) [Mass/Vol] 0.7720605 mg/dL [facility] Laboratory - Hematology and Cell countsOrdered By: Lynn Christensen on 02-21-2025 Hemoglobin Ql (U) Small [facility] Comment on above: 80 Sky/uL Laboratory - Specimen inform ationOrdered By: Lynn Christensen on 02-21-2025 Color (U) YELLOW [facility] Laboratory - UrinalysisOrder ed By: Lynn Christensen on 02-21-2025 Nitrite Ql (U) Negative [facility] Protein Ql (U) Trace [facility] No Panel InformationOrdered By: Lynn Christensen on 02-21-2025 Urine Leukocytes Positive [facility] Comment on above: 500 Pepe/uL Office Visit Reporton 2024 Office Visit Report Normal [facility] Basic Metabolic Profile (BMP )on 02-20-2025 BUN Normal 4-19 [facility] Comment on above: Result Comment: Canc elled via OM: Order cancelled - Patient discharged Performed By: #### L 500.2500, L100.0100 ####[facility] [address] [place], [address] BUN/CRE Normal 10-20 [facility] Comment on above: Result Comment: Canc elled via OM: Order cancelled - Patient discharged Performed By: #### L 500.2500, L100.0100 ####[facility] [address] [place], [address] Calcium Normal 7.6-11.0 [facility] Comment on above: Result Comment: Canc elled via OM: Order cancelled - Patient discharged Performed By: #### L 500.2500, L100.0100 ####[facility] [address] [place], [address] CL Normal 98-108 [facility] Comment on above: Result Comment: Canc elled via OM: Order cancelled - Patient discharged Performed By: #### L 500.2500, L100.0100 ####[facility] [address] [place], [address] CO2 Normal 21.0-32.0 [facility] Comment on above: Result Comment: Canc elled via OM: Order cancelled - Patient discharged Performed By: #### L 500.2500, L100.0100 ####[facility] [address] [place], [address] CREAT,SERUM Normal 0.70-1.20 [facility] Comment on above: Result Comment: Canc elled via OM: Order cancelled - Patient discharged Performed By: #### L 500.2500, L100.0100 ####[facility] [address] [place], [address] eGFR Normal >60 [facility] Comment on above: Result Comment: Canc elled via OM: Order cancelled - Patient discharged Performed By: #### L 500.2500, L100.0100 ####[facility] [address] [place], [address] GAP Normal 5-15 [facility] Comment on above: Result Comment: Canc elled via OM: Order cancelled - Patient discharged Performed By: #### L 500.2500, L100.0100 ####[facility] [address] [place], [address] GLU Normal 70-99 [facility] Comment on above: Result Comment: Canc elled via OM: Order cancelled - Patient discharged Performed By: #### L 500.2500, L100.0100 ####[facility] [address] [place], [address] Potassium Normal 3.3-5.1 [facility] Comment on above: Result Comment: Canc elled via OM: Order cancelled - Patient discharged Performed By: #### L 500.2500, L100.0100 ####[facility] [address] [place], [address] Basic Metabolic Profile (BMP) Normal 133-145 [facility] Comment on above: Result Comment: Canc elled via OM: Order cancelled - Patient discharged Performed By: #### L 500.2500, L100.0100 ####[facility] [address] [place], [address] CBC W/Diff, Automatedon 11-0 -2024 Absolute Neut Normal 2.0-7.7 [facility] Comment on above: Result Comment: Canc elled via OM: Order cancelled - Patient discharged Performed By: #### L 500.2500, L100.0100 ####[facility] [address] [place], [address] HCT Normal 37-47 [facility] Comment on above: Result Comment: Canc elled via OM: Order cancelled - Patient discharged Performed By: #### L 500.2500, L100.0100 ####[facility] [address] [place], [address] HGB Normal 12.0-15.0 [facility] Comment on above: Result Comment: Canc elled via OM: Order cancelled - Patient discharged Performed By: #### L 500.2500, L100.0100 ####[facility] [address] [place], [address] MCH Normal 27.0-32.0 [facility] Comment on above: Result Comment: Canc elled via OM: Order cancelled - Patient discharged Performed By: #### L 500.2500, L100.0100 ####[facility] [address] [place], [address] MCHC Normal 32-36 [facility] Comment on above: Result Comment: Canc elled via OM: Order cancelled - Patient discharged Performed By: #### L 500.2500, L100.0100 ####[facility] [address] [place], [address] MCV Normal 81-99 [facility] Comment on above: Result Comment: Canc elled via OM: Order cancelled - Patient discharged Performed By: #### L 500.2500, L100.0100 ####[facility] [address] [place], [address] NEUT% Normal 47-70 [facility] Comment on above: Result Comment: Canc elled via OM: Order cancelled - Patient discharged Performed By: #### L 500.2500, L100.0100 ####[facility] [address] [place], [address] PLT Normal 150-450 [facility] Comment on above: Result Comment: Canc elled via OM: Order cancelled - Patient discharged Performed By: #### L 500.2500, L100.0100 ####[facility] [address] [place], [address] RBC Normal 4.2-5.4 [facility] Comment on above: Result Comment: Canc elled via OM: Order cancelled - Patient discharged Performed By: #### L 500.2500, L100.0100 ####[facility] [address] [place], [address] RDW CV Normal 11.6-14.6 [facility] Comment on above: Result Comment: Canc elled via OM: Order cancelled - Patient discharged Performed By: #### L 500.2500, L100.0100 ####[facility] [address] [place], [address] RDW SD Normal 35.1-43.9 [facility] Comment on above: Result Comment: Canc elled via OM: Order cancelled - Patient discharged Performed By: #### L 500.2500, L100.0100 ####[facility] [address] [place], [address] WBC Normal 4.4-11.0 [facility] Comment on above: Result Comment: Canc elled via OM: Order cancelled - Patient discharged Performed By: #### L 500.2500, L100.0100 ####[facility] [address] [place], [address] Basic Metabolic Profile (BMP )on 02-19-2025 BUN Normal 4-19 [facility] Comment on above: Result Comment: Canc elled via OM: Order cancelled - Patient discharged Performed By: #### L 500.2500, L100.0100 ####[facility] [address] [place], [address] BUN/CRE Normal 10-20 [facility] Comment on above: Result Comment: Canc elled via OM: Order cancelled - Patient discharged Performed By: #### L 500.2500, L100.0100 ####[facility] [address] [place], [address] Calcium Normal 7.6-11.0 [facility] Comment on above: Result Comment: Canc elled via OM: Order cancelled - Patient discharged Performed By: #### L 500.2500, L100.0100 ####[facility] [address] [place], [address] CL Normal 98-108 [facility] Comment on above: Result Comment: Canc elled via OM: Order cancelled - Patient discharged Performed By: #### L 500.2500, L100.0100 ####[facility] [address] [place], [address] CO2 Normal 21.0-32.0 [facility] Comment on above: Result Comment: Canc elled via OM: Order cancelled - Patient discharged Performed By: #### L 500.2500, L100.0100 ####[facility] [address] [place], [address] CREAT,SERUM Normal 0.70-1.20 [facility] Comment on above: Result Comment: Canc elled via OM: Order cancelled - Patient discharged Performed By: #### L 500.2500, L100.0100 ####[facility] [address] [place], [address] eGFR Normal >60 [facility] Comment on above: Result Comment: Canc elled via OM: Order cancelled - Patient discharged Performed By: #### L 500.2500, L100.0100 ####[facility] [address] [place], [address] GAP Normal 5-15 [facility] Comment on above: Result Comment: Canc elled via OM: Order cancelled - Patient discharged Performed By: #### L 500.2500, L100.0100 ####[facility] [address] [place], [address] GLU Normal 70-99 [facility] Comment on above: Result Comment: Canc elled via OM: Order cancelled - Patient discharged Performed By: #### L 500.2500, L100.0100 ####[facility] [address] [place], [address] Potassium Normal 3.3-5.1 [facility] Comment on above: Result Comment: Canc elled via OM: Order cancelled - Patient discharged Performed By: #### L 500.2500, L100.0100 ####[facility] [address] [place], [address] Basic Metabolic Profile (BMP) Normal 133-145 [facility] Comment on above: Result Comment: Canc elled via OM: Order cancelled - Patient discharged Performed By: #### L 500.2500, L100.0100 ####[facility] [address] [place], [address] CBC W/Diff, Automatedon 11-0 -2024 Absolute Neut Normal 2.0-7.7 [facility] Comment on above: Result Comment: Canc elled via OM: Order cancelled - Patient discharged Performed By: #### L 500.2500, L100.0100 ####[facility] [address] [place], [address] HCT Normal 37-47 [facility] Comment on above: Result Comment: Canc elled via OM: Order cancelled - Patient discharged Performed By: #### L 500.2500, L100.0100 ####[facility] [address] [place], [address] HGB Normal 12.0-15.0 [facility] Comment on above: Result Comment: Canc elled via OM: Order cancelled - Patient discharged Performed By: #### L 500.2500, L100.0100 ####[facility] [address] [place], [address] MCH Normal 27.0-32.0 [facility] Comment on above: Result Comment: Canc elled via OM: Order cancelled - Patient discharged Performed By: #### L 500.2500, L100.0100 ####[facility] [address] [place], [address] MCHC Normal 32-36 [facility] Comment on above: Result Comment: Canc elled via OM: Order cancelled - Patient discharged Performed By: #### L 500.2500, L100.0100 ####[facility] [address] [place], [address] MCV Normal 81-99 [facility] Comment on above: Result Comment: Canc elled via OM: Order cancelled - Patient discharged Performed By: #### L 500.2500, L100.0100 ####[facility] [address] [place], [address] NEUT% Normal 47-70 [facility] Comment on above: Result Comment: Canc elled via OM: Order cancelled - Patient discharged Performed By: #### L 500.2500, L100.0100 ####[facility] [address] [place], [address] PLT Normal 150-450 [facility] Comment on above: Result Comment: Canc elled via OM: Order cancelled - Patient discharged Performed By: #### L 500.2500, L100.0100 ####[facility] [address] [place], [address] RBC Normal 4.2-5.4 [facility] Comment on above: Result Comment: Canc elled via OM: Order cancelled - Patient discharged Performed By: #### L 500.2500, L100.0100 ####[facility] [address] [place], [address] RDW CV Normal 11.6-14.6 [facility] Comment on above: Result Comment: Canc elled via OM: Order cancelled - Patient discharged Performed By: #### L 500.2500, L100.0100 ####[facility] [address] [place], [address] RDW SD Normal 35.1-43.9 [facility] Comment on above: Result Comment: Canc elled via OM: Order cancelled - Patient discharged Performed By: #### L 500.2500, L100.0100 ####[facility] [address] [place], [address] WBC Normal 4.4-11.0 [facility] Comment on above: Result Comment: Canc elled via OM: Order cancelled - Patient discharged Performed By: #### L 500.2500, L100.0100 ####[facility] [address] [place], [address] Basic Metabolic Profile (BMP )on 02-18-2025 BUN Normal 4-19 [facility] Comment on above: Result Comment: Canc elled via OM: Order cancelled - Patient discharged Performed By: #### L 100.0100, L500.2500 ####[facility] [address] [place], [address] BUN/CRE Normal 10-20 [facility] Comment on above: Result Comment: Canc elled via OM: Order cancelled - Patient discharged Performed By: #### L 100.0100, L500.2500 ####[facility] [address] [place], [address] Calcium Normal 7.6-11.0 [facility] Comment on above: Result Comment: Canc elled via OM: Order cancelled - Patient discharged Performed By: #### L 100.0100, L500.2500 ####[facility] [address] [place], [address] CL Normal 98-108 [facility] Comment on above: Result Comment: Canc elled via OM: Order cancelled - Patient discharged Performed By: #### L 100.0100, L500.2500 ####[facility] [address] [place], [address] CO2 Normal 21.0-32.0 [facility] Comment on above: Result Comment: Canc elled via OM: Order cancelled - Patient discharged Performed By: #### L 100.0100, L500.2500 ####[facility] [address] [place], [address] CREAT,SERUM Normal 0.70-1.20 [facility] Comment on above: Result Comment: Canc elled via OM: Order cancelled - Patient discharged Performed By: #### L 100.0100, L500.2500 ####[facility] [address] [place], [address] eGFR Normal >60 [facility] Comment on above: Result Comment: Canc elled via OM: Order cancelled - Patient discharged Performed By: #### L 100.0100, L500.2500 ####[facility] [address] [place], [address] GAP Normal 5-15 [facility] Comment on above: Result Comment: Canc elled via OM: Order cancelled - Patient discharged Performed By: #### L 100.0100, L500.2500 ####[facility] [address] [place], [address] GLU Normal 70-99 [facility] Comment on above: Result Comment: Canc elled via OM: Order cancelled - Patient discharged Performed By: #### L 100.0100, L500.2500 ####[facility] [address] [place], [address] Potassium Normal 3.3-5.1 [facility] Comment on above: Result Comment: Canc elled via OM: Order cancelled - Patient discharged Performed By: #### L 100.0100, L500.2500 ####[facility] [address] [place], [address] Basic Metabolic Profile (BMP) Normal 133-145 [facility] Comment on above: Result Comment: Canc elled via OM: Order cancelled - Patient discharged Performed By: #### L 100.0100, L500.2500 ####[facility] [address] [place], [address] CBC W/Diff, Automatedon 11-0 Absolute Neut Normal 2.0-7.7 [facility] Comment on above: Result Comment: Canc elled via OM: Order cancelled - Patient discharged Performed By: #### L 100.0100, L500.2500 ####[facility] [address] [place], [address] HCT Normal 37-47 [facility] Comment on above: Result Comment: Canc elled via OM: Order cancelled - Patient discharged Performed By: #### L 100.0100, L500.2500 ####[facility] [address] [place], [address] HGB Normal 12.0-15.0 [facility] Comment on above: Result Comment: Canc elled via OM: Order cancelled - Patient discharged Performed By: #### L 100.0100, L500.2500 ####[facility] [address] [place], [address] MCH Normal 27.0-32.0 [facility] Comment on above: Result Comment: Canc elled via OM: Order cancelled - Patient discharged Performed By: #### L 100.0100, L500.2500 ####[facility] [address] [place], [address] MCHC Normal 32-36 [facility] Comment on above: Result Comment: Canc elled via OM: Order cancelled - Patient discharged Performed By: #### L 100.0100, L500.2500 ####[facility] [address] [place], [address] MCV Normal 81-99 [facility] Comment on above: Result Comment: Canc elled via OM: Order cancelled - Patient discharged Performed By: #### L 100.0100, L500.2500 ####[facility] [address] [place], [address] NEUT% Normal 47-70 [facility] Comment on above: Result Comment: Canc elled via OM: Order cancelled - Patient discharged Performed By: #### L 100.0100, L500.2500 ####[facility] [address] [place], [address] PLT Normal 150-450 [facility] Comment on above: Result Comment: Canc elled via OM: Order cancelled - Patient discharged Performed By: #### L 100.0100, L500.2500 ####[facility] [address] [place], [address] RBC Normal 4.2-5.4 [facility] Comment on above: Result Comment: Canc elled via OM: Order cancelled - Patient discharged Performed By: #### L 100.0100, L500.2500 ####[facility] [address] [place], [address] RDW CV Normal 11.6-14.6 [facility] Comment on above: Result Comment: Canc elled via OM: Order cancelled - Patient discharged Performed By: #### L 100.0100, L500.2500 ####[facility] [address] [place], [address] RDW SD Normal 35.1-43.9 [facility] Comment on above: Result Comment: Canc elled via OM: Order cancelled - Patient discharged Performed By: #### L 100.0100, L500.2500 ####[facility] [address] [place], [address] WBC Normal 4.4-11.0 [facility] Comment on above: Result Comment: Canc elled via OM: Order cancelled - Patient discharged Performed By: #### L 100.0100, L500.2500 ####[facility] [address] [place], [address] Basic Metabolic Profile (BMP )on 02-17-2025 BUN Normal 4-19 [facility] Comment on above: Result Comment: Canc elled via OM: Order cancelled - Patient discharged Performed By: #### L 500.2500, L100.0100 ####[facility] [address] [place], [address] BUN/CRE Normal 10-20 [facility] Comment on above: Result Comment: Canc elled via OM: Order cancelled - Patient discharged Performed By: #### L 500.2500, L100.0100 ####[facility] [address] [place], [address] Calcium Normal 7.6-11.0 [facility] Comment on above: Result Comment: Canc elled via OM: Order cancelled - Patient discharged Performed By: #### L 500.2500, L100.0100 ####[facility] [address] [place], [address] CL Normal 98-108 [facility] Comment on above: Result Comment: Canc elled via OM: Order cancelled - Patient discharged Performed By: #### L 500.2500, L100.0100 ####[facility] [address] [place], [address] CO2 Normal 21.0-32.0 [facility] Comment on above: Result Comment: Canc elled via OM: Order cancelled - Patient discharged Performed By: #### L 500.2500, L100.0100 ####[facility] [address] [place], [address] CREAT,SERUM Normal 0.70-1.20 [facility] Comment on above: Result Comment: Canc elled via OM: Order cancelled - Patient discharged Performed By: #### L 500.2500, L100.0100 ####[facility] [address] [place], [address] eGFR Normal >60 [facility] Comment on above: Result Comment: Canc elled via OM: Order cancelled - Patient discharged Performed By: #### L 500.2500, L100.0100 ####[facility] [address] [place], [address] GAP Normal 5-15 [facility] Comment on above: Result Comment: Canc elled via OM: Order cancelled - Patient discharged Performed By: #### L 500.2500, L100.0100 ####[facility] [address] [place], [address] GLU Normal 70-99 [facility] Comment on above: Result Comment: Canc elled via OM: Order cancelled - Patient discharged Performed By: #### L 500.2500, L100.0100 ####[facility] [address] [place], [address] Potassium Normal 3.3-5.1 [facility] Comment on above: Result Comment: Canc elled via OM: Order cancelled - Patient discharged Performed By: #### L 500.2500, L100.0100 ####[facility] [address] [place], [address] Basic Metabolic Profile (BMP) Normal 133-145 [facility] Comment on above: Result Comment: Canc elled via OM: Order cancelled - Patient discharged Performed By: #### L 500.2500, L100.0100 ####[facility] [address] [place], [address] CBC W/Diff, Automatedon 11-0 -2024 Absolute Neut Normal 2.0-7.7 [facility] Comment on above: Result Comment: Canc elled via OM: Order cancelled - Patient discharged Performed By: #### L 500.2500, L100.0100 ####[facility] [address] [place], [address] HCT Normal 37-47 [facility] Comment on above: Result Comment: Canc elled via OM: Order cancelled - Patient discharged Performed By: #### L 500.2500, L100.0100 ####[facility] [address] [place], [address] HGB Normal 12.0-15.0 [facility] Comment on above: Result Comment: Canc elled via OM: Order cancelled - Patient discharged Performed By: #### L 500.2500, L100.0100 ####[facility] [address] [place], [address] MCH Normal 27.0-32.0 [facility] Comment on above: Result Comment: Canc elled via OM: Order cancelled - Patient discharged Performed By: #### L 500.2500, L100.0100 ####[facility] [address] [place], [address] MCHC Normal 32-36 [facility] Comment on above: Result Comment: Canc elled via OM: Order cancelled - Patient discharged Performed By: #### L 500.2500, L100.0100 ####[facility] [address] [place], [address] MCV Normal 81-99 [facility] Comment on above: Result Comment: Canc elled via OM: Order cancelled - Patient discharged Performed By: #### L 500.2500, L100.0100 ####[facility] [address] [place], [address] NEUT% Normal 47-70 [facility] Comment on above: Result Comment: Canc elled via OM: Order cancelled - Patient discharged Performed By: #### L 500.2500, L100.0100 ####[facility] [address] [place], [address] PLT Normal 150-450 [facility] Comment on above: Result Comment: Canc elled via OM: Order cancelled - Patient discharged Performed By: #### L 500.2500, L100.0100 ####[facility] [address] [place], [address] RBC Normal 4.2-5.4 [facility] Comment on above: Result Comment: Canc elled via OM: Order cancelled - Patient discharged Performed By: #### L 500.2500, L100.0100 ####[facility] [address] [place], [address] RDW CV Normal 11.6-14.6 [facility] Comment on above: Result Comment: Canc elled via OM: Order cancelled - Patient discharged Performed By: #### L 500.2500, L100.0100 ####[facility] [address] [place], [address] RDW SD Normal 35.1-43.9 [facility] Comment on above: Result Comment: Canc elled via OM: Order cancelled - Patient discharged Performed By: #### L 500.2500, L100.0100 ####[facility] [address] [place], [address] WBC Normal 4.4-11.0 [facility] Comment on above: Result Comment: Canc elled via OM: Order cancelled - Patient discharged Performed By: #### L 500.2500, L100.0100 ####[facility] [address] [place], [address] Basic Metabolic Profile (BMP )on 02-16-2025 BUN Normal 4-19 [facility] Comment on above: Result Comment: Canc elled via OM: Order cancelled - Patient discharged Performed By: #### L 500.2500, L100.0100 ####[facility] [address] [place], [address] BUN/CRE Normal 10-20 [facility] Comment on above: Result Comment: Canc elled via OM: Order cancelled - Patient discharged Performed By: #### L 500.2500, L100.0100 ####[facility] [address] [place], [address] Calcium Normal 7.6-11.0 [facility] Comment on above: Result Comment: Canc elled via OM: Order cancelled - Patient discharged Performed By: #### L 500.2500, L100.0100 ####[facility] [address] [place], [address] CL Normal 98-108 [facility] Comment on above: Result Comment: Canc elled via OM: Order cancelled - Patient discharged Performed By: #### L 500.2500, L100.0100 ####[facility] [address] [place], [address] CO2 Normal 21.0-32.0 [facility] Comment on above: Result Comment: Canc elled via OM: Order cancelled - Patient discharged Performed By: #### L 500.2500, L100.0100 ####[facility] [address] [place], [address] CREAT,SERUM Normal 0.70-1.20 [facility] Comment on above: Result Comment: Canc elled via OM: Order cancelled - Patient discharged Performed By: #### L 500.2500, L100.0100 ####[facility] [address] [place], [address] eGFR Normal >60 [facility] Comment on above: Result Comment: Canc elled via OM: Order cancelled - Patient discharged Performed By: #### L 500.2500, L100.0100 ####[facility] [address] [place], [address] GAP Normal 5-15 [facility] Comment on above: Result Comment: Canc elled via OM: Order cancelled - Patient discharged Performed By: #### L 500.2500, L100.0100 ####[facility] [address] [place], [address] GLU Normal 70-99 [facility] Comment on above: Result Comment: Canc elled via OM: Order cancelled - Patient discharged Performed By: #### L 500.2500, L100.0100 ####[facility] [address] [place], [address] Potassium Normal 3.3-5.1 [facility] Comment on above: Result Comment: Canc elled via OM: Order cancelled - Patient discharged Performed By: #### L 500.2500, L100.0100 ####[facility] [address] [place], [address] Basic Metabolic Profile (BMP) Normal 133-145 [facility] Comment on above: Result Comment: Canc elled via OM: Order cancelled - Patient discharged Performed By: #### L 500.2500, L100.0100 ####[facility] [address] [place], [address] CBC W/Diff, Automatedon 11-0 Absolute Neut Normal 2.0-7.7 [facility] Comment on above: Result Comment: Canc elled via OM: Order cancelled - Patient discharged Performed By: #### L 500.2500, L100.0100 ####[facility] [address] [place], [address] HCT Normal 37-47 [facility] Comment on above: Result Comment: Canc elled via OM: Order cancelled - Patient discharged Performed By: #### L 500.2500, L100.0100 ####[facility] [address] [place], [address] HGB Normal 12.0-15.0 [facility] Comment on above: Result Comment: Canc elled via OM: Order cancelled - Patient discharged Performed By: #### L 500.2500, L100.0100 ####[facility] [address] [place], [address] MCH Normal 27.0-32.0 [facility] Comment on above: Result Comment: Canc elled via OM: Order cancelled - Patient discharged Performed By: #### L 500.2500, L100.0100 ####[facility] [address] [place], [address] MCHC Normal 32-36 [facility] Comment on above: Result Comment: Canc elled via OM: Order cancelled - Patient discharged Performed By: #### L 500.2500, L100.0100 ####[facility] [address] [place], [address] MCV Normal 81-99 [facility] Comment on above: Result Comment: Canc elled via OM: Order cancelled - Patient discharged Performed By: #### L 500.2500, L100.0100 ####[facility] [address] [place], [address] NEUT% Normal 47-70 [facility] Comment on above: Result Comment: Canc elled via OM: Order cancelled - Patient discharged Performed By: #### L 500.2500, L100.0100 ####[facility] [address] [place], [address] PLT Normal 150-450 [facility] Comment on above: Result Comment: Canc elled via OM: Order cancelled - Patient discharged Performed By: #### L 500.2500, L100.0100 ####[facility] [address] [place], [address] RBC Normal 4.2-5.4 [facility] Comment on above: Result Comment: Canc elled via OM: Order cancelled - Patient discharged Performed By: #### L 500.2500, L100.0100 ####[facility] [address] [place], [address] RDW CV Normal 11.6-14.6 [facility] Comment on above: Result Comment: Canc elled via OM: Order cancelled - Patient discharged Performed By: #### L 500.2500, L100.0100 ####[facility] [address] [place], [address] RDW SD Normal 35.1-43.9 [facility] Comment on above: Result Comment: Canc elled via OM: Order cancelled - Patient discharged Performed By: #### L 500.2500, L100.0100 ####[facility] [address] [place], [address] WBC Normal 4.4-11.0 [facility] Comment on above: Result Comment: Canc elled via OM: Order cancelled - Patient discharged Performed By: #### L 500.2500, L100.0100 ####[facility] [address] [place], [address] Absolute lymphocyte countOrd ered By: Janett Smith on 02-15-2025 Lymphocytes Auto (Unsp spec) [#/Vol] 2.20 10*3/uL 0.83-4.51 [facility] Absolute neutrophil countOrd ered By: Janett Smith on 02-15-2025 Neutrophils (Bld) [#/Vol] 2.2 10*3/uL 2.0-7.7 [facility] Anion gap in Serum or Plasma Ordered By: Janett Smith on 02-15-2025 Anion gap [Moles/Vol] 10 mmol/L 5-15 [facility] Automated lymphocyte count a s percentage of total leukocytesOrdered By: Janett Smith on 02-15-2025 Lymphocytes/100 WBC Auto (Unsp spec) 43.1 % High 19-41 [facility] BUN/creatinine ratioOrdered By: Janett Smith on 02-15-2025 Urea nitrogen/Creatinine [Mass ratio] 12.0 mg/mg - [facility] Basic Metabolic Profile (BMP )on 02-15-2025 BUN/CRE 12.0 RATIO Normal - [facility] Comment on above: Performed By: #### L 500.2500, L100.0100 ####[facility] [address] [place], [address] Calcium [Mass/Vol] 9.1 mg/dL Normal 7.6-11.0 [facility] Comment on above: Performed By: #### L 500.2500, L100.0100 ####[facility] [address] [place], [address] Chloride [Moles/Vol] 105 mmol/L Normal 98-108 [facility] Comment on above: Performed By: #### L 500.2500, L100.0100 ####[facility] [address] [place], [address] CO2 [Moles/Vol] 26.0 mmol/L Normal 21.0-32.0 [facility] Comment on above: Performed By: #### L 500.2500, L100.0100 ####[facility] [address] [place], [address] Creatinine [Mass/Vol] 0.70 mg/dL Normal 0.70-1.20 [facility] Comment on above: Performed By: #### L 500.2500, L100.0100 ####[facility] [address] [place], [address] ECRCL 61.77 ml/min Normal 50-250 [facility] Comment on above: Performed By: #### L 500.2500, L100.0100 ####[facility] [address] [place], [address] GAP 10 Normal 5-15 [facility] Comment on above: Performed By: #### L 500.2500, L100.0100 ####[facility] [address] [place], [address] GFR/1.73 sq M.predicted among non-blacks MDRD (S/P/Bld) [Vol rate/Area] 87 mL/min/{1.73_m2} Normal >60 [facility] Comment on above: Result Comment: mL/m in/1.73m2 CKD-EPI Creatinine Equation (2020) Performed By: #### L 500.2500, L100.0100 ####[facility] [address] [place], [address] Glucose [Mass/Vol] 108 mg/dL High 70-99 [facility] Comment on above: Performed By: #### L 500.2500, L100.0100 ####[facility] [address] [place], [address] Potassium [Moles/Vol] 4.1 mmol/L Normal 3.3-5.1 [facility] Comment on above: Performed By: #### L 500.2500, L100.0100 ####[facility] [address] [place], [address] Sodium [Moles/Vol] 141 mmol/L Normal 133-145 [facility] Comment on above: Performed By: #### L 500.2500, L100.0100 ####[facility] [address] [place], [address] Urea nitrogen [Mass/Vol] 8 mg/dL Normal 4-19 [facility] Comment on above: Performed By: #### L 500.2500, L100.0100 ####[facility] [address] [place], [address] Basophil percentageOrdered B y: Janett Smith on 02-15-2025 Basophils/100 WBC (Bld) 0.8 % 0-1 [facility] CBC W/Diff, Automatedon Absolute Lymph 2.20 X10 3/uL Normal 0.83-4.51 [facility] Comment on above: Performed By: #### L 500.2500, L100.0100 ####[facility] [address] [place], [address] Absolute Neut 2.2 X10 3/uL Normal 2.0-7.7 [facility] Comment on above: Performed By: #### L 500.2500, L100.0100 ####[facility] [address] [place], [address] Basophils/100 WBC (Bld) 0.8 % Normal 0-1 [facility] Comment on above: Performed By: #### L 500.2500, L100.0100 ####[facility] [address] [place], [address] Eosinophils/100 WBC (Bld) 2.5 % Normal 0-5 [facility] Comment on above: Performed By: #### L 500.2500, L100.0100 ####[facility] [address] [place], [address] Erythrocyte distribution width (RBC) [Ratio] 13.0 % Normal 11.6-14.6 [facility] Comment on above: Performed By: #### L 500.2500, L100.0100 ####[facility] [address] [place], [address] Hematocrit (Bld) [Volume fraction] 36.6 % Low 37-47 [facility] Comment on above: Performed By: #### L 500.2500, L100.0100 ####[facility] [address] [place], [address] Hemoglobin (Bld) [Mass/Vol] 12.4 g/dL Normal 12.0-15.0 [facility] Comment on above: Performed By: #### L 500.2500, L100.0100 ####[facility] [address] [place], [address] IG% 0.200 Normal 0.0-0.9 [facility] Comment on above: Result Comment: IG% - Immature Granulocytes (promyelocytes, myelocytes andmetamyelocytes) > 1% indicates that a LEFT SHIFT is Present. Performed By: #### L 500.2500, L100.0100 ####[facility] [address] [place], [address] Lymphocytes/100 WBC (Bld) 43.1 % High 19-41 [facility] Comment on above: Performed By: #### L 500.2500, L100.0100 ####[facility] [address] [place], [address] MCH (RBC) [Entitic mass] 30.7 pg Normal 27.0-32.0 [facility] Comment on above: Performed By: #### L 500.2500, L100.0100 ####[facility] [address] [place], [address] MCHC (RBC) [Mass/Vol] 33.9 g/dL Normal 32-36 [facility] Comment on above: Performed By: #### L 500.2500, L100.0100 ####[facility] [address] [place], [address] MCV (RBC) [Entitic vol] 90.6 fL Normal 81-99 [facility] Comment on above: Performed By: #### L 500.2500, L100.0100 ####[facility] [address] [place], [address] Monocytes/100 WBC (Bld) 9.8 % Normal 0-10 [facility] Comment on above: Performed By: #### L 500.2500, L100.0100 ####[facility] [address] [place], [address] Neutrophils/100 WBC (Bld) 43.6 % Low 47-70 [facility] Comment on above: Performed By: #### L 500.2500, L100.0100 ####[facility] [address] [place], [address] Nucleated RBC (Bld) [#/Vol] 0 10*3/uL Normal 0-5 [facility] Comment on above: Performed By: #### L 500.2500, L100.0100 ####[facility] [address] [place], [address] Platelet mean volume (Bld) [Entitic vol] 10.0 fL Normal 6.2-12.0 [facility] Comment on above: Performed By: #### L 500.2500, L100.0100 ####[facility] [address] [place], [address] Platelets (Bld) [#/Vol] 174 10*3/uL Normal 150-450 [facility] Comment on above: Performed By: #### L 500.2500, L100.0100 ####[facility] [address] [place], [address] RBC (Bld) [#/Vol] 4.04 10*6/uL Low 4.2-5.4 [facility] Comment on above: Performed By: #### L 500.2500, L100.0100 ####[facility] [address] [place], [address] RDW SD 43.0 fl Normal 35.1-43.9 [facility] Comment on above: Performed By: #### L 500.2500, L100.0100 ####[facility] [address] [place], [address] WBC (Bld) [#/Vol] 5.1 10*3/uL Normal 4.4-11.0 [facility] Comment on above: Performed By: #### L 500.2500, L100.0100 ####[facility] [address] [place], [address] Carbon dioxide, total [Moles /volume] in Central venous bloodOrdered By: Janett Smith on 02-15-2025 CO2 [Moles/Vol] 26.0 mmol/L 21.0-32.0 [facility] Chloride assayOrdered By: Sis Smith on 02-15-2025 Chloride [Moles/Vol] 105 mmol/L 98-108 [facility] Discharge Instructionon 11-[address] [facility] Eosinophil percentageOrdered By: Janett Smith on 02-15-2025 Eosinophils/100 WBC (Bld) 2.5 % 0-5 [facility] Erythrocyte distribution wid th ratioOrdered By: Janett Smith on 02-15-2025 Erythrocyte distribution width (RBC) [Ratio] 13.0 % 11.6-14.6 [facility] Erythrocyte distribution wid th standard deviationOrdered By: Janett Smith on 02-15-2025 Erythrocyte distribution width (RBC) [Ratio] 43.0 fl 35.1-43.9 [facility] Glomerular filtration rate ( GFR) estimation/1.73 sq m using serum, plasma, or whole bOrdered By: Janett Smith on 02-15-2025 GFR/1.73 sq M.predicted among non-blacks MDRD (S/P/Bld) [Vol rate/Area] 87 mL/min/{1.73_m2} >60 [facility] Comment on above: mL/min/1.73m2 CKD-EP I Creatinine Equation (2020) Hematocrit Auto (Bld) [Volum e fraction]Ordered By: Janett Smith on 02-15-2025 Hematocrit (Bld) [Volume fraction] 36.6 % Low 37-47 [facility] Hemoglobin measurementOrdere d By: Janett Smith on 02-15-2025 Hemoglobin (Bld) [Mass/Vol] 12.4 g/dL 12.0-15.0 [facility] Immature granulocytes/100 WB C Auto (Bld)Ordered By: Janett Smith on 02-15-2025 Immature granulocytes/100 WBC (Bld) 0.200 % 0.0-0.9 [facility] Comment on above: IG% - Immature Granu locytes (promyelocytes, myelocytes and metamyelocytes) > 1% indicates that a LEFT SHIFT is Present. MCV (mean corpuscular volume ) determinationOrdered By: Janett Smith on 02-15-2025 MCV (RBC) [Entitic vol] 90.6 fL 81-99 [facility] Mean corpuscular hemoglobin (MCH) determinationOrdered By: Janett Smith 02-15-2025 MCH (RBC) [Entitic mass] 30.7 pg 27.0-32.0 [facility] Mean corpuscular hemoglobin concentration (MCHC) determinationOrdered By: Janett Smith on 02-15-2025 MCHC (RBC) [Mass/Vol] 33.9 g/dL 32-36 [facility] Mean platelet volume determi nationOrdered By: Janett Smith on 02-15-2025 Platelet mean volume (Bld) [Entitic vol] 10.0 fL 6.2-12.0 [facility] Monocyte percentageOrdered B y: Janett Smith on 02-15-2025 Monocytes/100 WBC (Bld) 9.8 % 0-10 [facility] Neutrophil percentageOrdered By: Janett Smith on 02-15-2025 Neutrophils/100 WBC (Bld) 43.6 % Low 47-70 [facility] Nucleated red blood cell per centageOrdered By: Janett Smith on 02-15-2025 Nucleated RBC/100 WBC (Bld) [Ratio] 0 % 0-5 [facility] Platelet countOrdered By: Sis Smith on 02-15-2025 Platelets (Bld) [#/Vol] 174 10*3/uL 150-450 [facility] Potassium measurement (mass/ volume)Ordered By: Janett Smith on 02-15-2025 Potassium (Unsp spec) [Mass/Vol] 4.1 mmol/L 3.3-5.1 [facility] RBC Auto (Bld) [#/Vol]Ordere d By: Janett Smith on 02-15-2025 RBC (Bld) [#/Vol] 4.04 10*6/uL Low 4.2-5.4 [facility] Serum creatinine measurement (mass/volume)Ordered By: Janett Smith on 02-15-2025 Creatinine [Mass/Vol] 0.70 mg/dL 0.70-1.20 [facility] Serum glucose measurement (m ass/volume)Ordered By: Janett Smith on 02-15-2025 Glucose [Mass/Vol] 108 mg/dL High 70-99 [facility] Serum or plasma calcium deo urement (mass/volume)Ordered By: Janett Smith on 02-15-2025 Calcium [Mass/Vol] 9.1 mg/dL 7.6-11.0 [facility] Serum or plasma urea nitroge n measurement (mass/volume)Ordered By: Janett Smith on 02-15-2025 Urea nitrogen [Mass/Vol] 8 mg/dL 4-19 [facility] Sodium levelOrdered By: Lisseth Smith on 02-15-2025 Sodium [Moles/Vol] 141 mmol/L 133-145 [facility] White blood cell (WBC) count Ordered By: Janett Smith on 02-15-2025 WBC (Bld) [#/Vol] 5.1 10*3/uL 4.4-11.0 [facility] 12 Lead EKGon 02-14-2025 12 Lead EKG Normal [facility] Basic Metabolic Profile (BMP )on 02-14-2025 BUN/CRE 13.8 RATIO Normal 10-20 [facility] Comment on above: Performed By: #### L 100.0100, L500.4100, L500.2500 ####[facility] [address] [place], [address] Calcium [Mass/Vol] 9.0 mg/dL Normal 7.6-11.0 [facility] Comment on above: Performed By: #### L 100.0100, L500.4100, L500.2500 ####[facility] [address] [place], [address] Chloride [Moles/Vol] 106 mmol/L Normal 98-108 [facility] Comment on above: Performed By: #### L 100.0100, L500.4100, L500.2500 ####[facility] [address] [place], [address] CO2 [Moles/Vol] 25.5 mmol/L Normal 21.0-32.0 [facility] Comment on above: Performed By: #### L 100.0100, L500.4100, L500.2500 ####[facility] [address] [place], [address] Creatinine [Mass/Vol] 0.62 mg/dL Low 0.70-1.20 [facility] Comment on above: Performed By: #### L 100.0100, L500.4100, L500.2500 ####[facility] [address] [place], [address] ECRCL 61.77 ml/min Normal 50-250 [facility] Comment on above: Performed By: #### L 100.0100, L500.4100, L500.2500 ####[facility] [address] [place], [address] GAP 10 Normal 5-15 [facility] Comment on above: Performed By: #### L 100.0100, L500.4100, L500.2500 ####[facility] [address] [place], [address] GFR/1.73 sq M.predicted among non-blacks MDRD (S/P/Bld) [Vol rate/Area] 90 mL/min/{1.73_m2} Normal >60 [facility] Comment on above: Result Comment: mL/m in/1.73m2 CKD-EPI Creatinine Equation (2020) Performed By: #### L 100.0100, L500.4100, L500.2500 ####[facility] [address] [place], [address] Glucose [Mass/Vol] 94 mg/dL Normal 70-99 [facility] Comment on above: Performed By: #### L 100.0100, L500.4100, L500.2500 ####[facility] [address] [place], [address] Potassium [Moles/Vol] 4.0 mmol/L Normal 3.3-5.1 [facility] Comment on above: Performed By: #### L 100.0100, L500.4100, L500.2500 ####[facility] [address] [place], [address] Sodium [Moles/Vol] 142 mmol/L Normal 133-145 [facility] Comment on above: Performed By: #### L 100.0100, L500.4100, L500.2500 ####[facility] [address] [place], [address] Urea nitrogen [Mass/Vol] 9 mg/dL Normal 4-19 [facility] Comment on above: Performed By: #### L 100.0100, L500.4100, L500.2500 ####[facility] [address] [place], [address] CBC W/Diff, Automatedon 11-0 -2024 Absolute Lymph 2.61 X10 3/uL Normal 0.83-4.51 [facility] Comment on above: Performed By: #### L 100.0100, L500.4100, L500.2500 ####[facility] [address] [place], [address] Absolute Neut 2.0 X10 3/uL Normal 2.0-7.7 [facility] Comment on above: Performed By: #### L 100.0100, L500.4100, L500.2500 ####[facility] [address] [place], [address] Basophils/100 WBC (Bld) 1.0 % Normal 0-1 [facility] Comment on above: Performed By: #### L 100.0100, L500.4100, L500.2500 ####[facility] [address] [place], [address] Eosinophils/100 WBC (Bld) 2.3 % Normal 0-5 [facility] Comment on above: Performed By: #### L 100.0100, L500.4100, L500.2500 ####[facility] [address] [place], [address] Erythrocyte distribution width (RBC) [Ratio] 12.7 % Normal 11.6-14.6 [facility] Comment on above: Performed By: #### L 100.0100, L500.4100, L500.2500 ####[facility] [address] [place], [address] Hematocrit (Bld) [Volume fraction] 37.1 % Normal 37-47 [facility] Comment on above: Performed By: #### L 100.0100, L500.4100, L500.2500 ####[facility] [address] [place], [address] Hemoglobin (Bld) [Mass/Vol] 12.4 g/dL Normal 12.0-15.0 [facility] Comment on above: Performed By: #### L 100.0100, L500.4100, L500.2500 ####[facility] [address] [place], [address] IG% 0.200 Normal 0.0-0.9 [facility] Comment on above: Result Comment: IG% - Immature Granulocytes (promyelocytes, myelocytes andmetamyelocytes) > 1% indicates that a LEFT SHIFT is Present. Performed By: #### L 100.0100, L500.4100, L500.2500 ####[facility] [address] [place], [address] Lymphocytes/100 WBC (Bld) 49.8 % High 19-41 [facility] Comment on above: Performed By: #### L 100.0100, L500.4100, L500.2500 ####[facility] [address] [place], [address] MCH (RBC) [Entitic mass] 30.2 pg Normal 27.0-32.0 [facility] Comment on above: Performed By: #### L 100.0100, L500.4100, L500.2500 ####[facility] [address] [place], [address] MCHC (RBC) [Mass/Vol] 33.4 g/dL Normal 32-36 [facility] Comment on above: Performed By: #### L 100.0100, L500.4100, L500.2500 ####[facility] [address] [place], [address] MCV (RBC) [Entitic vol] 90.3 fL Normal 81-99 [facility] Comment on above: Performed By: #### L 100.0100, L500.4100, L500.2500 ####[facility] [address] [place], [address] Monocytes/100 WBC (Bld) 8.2 % Normal 0-10 [facility] Comment on above: Performed By: #### L 100.0100, L500.4100, L500.2500 ####[facility] [address] [place], [address] Neutrophils/100 WBC (Bld) 38.5 % Low 47-70 [facility] Comment on above: Performed By: #### L 100.0100, L500.4100, L500.2500 ####[facility] [address] [place], [address] Nucleated RBC (Bld) [#/Vol] 0 10*3/uL Normal 0-5 [facility] Comment on above: Performed By: #### L 100.0100, L500.4100, L500.2500 ####[facility] [address] [place], [address] Platelet mean volume (Bld) [Entitic vol] 10.8 fL Normal 6.2-12.0 [facility] Comment on above: Performed By: #### L 100.0100, L500.4100, L500.2500 ####[facility] [address] [place], [address] Platelets (Bld) [#/Vol] 178 10*3/uL Normal 150-450 [facility] Comment on above: Performed By: #### L 100.0100, L500.4100, L500.2500 ####[facility] [address] [place], [address] RBC (Bld) [#/Vol] 4.11 10*6/uL Low 4.2-5.4 [facility] Comment on above: Performed By: #### L 100.0100, L500.4100, L500.2500 ####[facility] [address] [place], [address] RDW SD 41.9 fl Normal 35.1-43.9 [facility] Comment on above: Performed By: #### L 100.0100, L500.4100, L500.2500 ####[facility] [address] [place], [address] WBC (Bld) [#/Vol] 5.2 10*3/uL Normal 4.4-11.0 [facility] Comment on above: Performed By: #### L 100.0100, L500.4100, L500.2500 ####[facility] [address] [place], [address] Calculated very low density lipoprotein (VLDL) cholesterol measurementOrdered By: Janett Smith on 02-14-2025 Calculated very low density lipoprotein (VLDL) cholesterol measurement 35 mg/dL 5-40 [facility] LDL calc ser/plasOrdered By: Janett Smith on 02-14-2025 Cholesterol in LDL [Mass/Vol] 114 mg/dL [facility] Comment on above: Qsyalxhykl=505-355 m g/dL & Higher Pbyq=678 mg/dL or greaterSampson Equation 2020 for LDL-C Lipid Profileon 02-14-2025 CHOL:HDL 4.40 Normal [facility] Comment on above: Performed By: #### L 100.0100, L500.4100, L500.2500 ####[facility] [address] [place], [address] Cholesterol [Mass/Vol] 188 mg/dL Normal <=200 [facility] Comment on above: Result Comment: Chol esterol level, Desirable <200 mg/dLBorderline high cholesterol 200-239 mg/dLHigh cholesterol >=240 mg/dLRecommendations of the NCEP Adult Treatment Panel for thefollowing risk-cutoff thresholds for the [place] [facility] [place] [facility]. Performed By: #### L 100.0100, L500.4100, L500.2500 ####[facility] [address] [place], [address] Cholesterol in HDL [Mass/Vol] 43 mg/dL Normal [facility] Comment on above: Result Comment: Mona onal Cholesterol Education Program (NCEP) guidelines:<40 mg/dL: Low HDL-cholesterol (major risk factor for CHD)>= 60 mg/dL: High HDL-cholesterol (negative risk factor forCHD)HDL-cholesterol is affected by a number of factors, e.g.smoking, exercise, hormones, sex and age. Performed By: #### L 100.0100, L500.4100, L500.2500 ####[facility] [address] [place], [address] Cholesterol in LDL [Mass/Vol] 114 mg/dL Normal [facility] Comment on above: Result Comment: Bord zefenm=070-267 mg/dL Higher Lezg=272 mg/dL or greaterSampson Equation 2020 for LDL-C Performed By: #### L 100.0100, L500.4100, L500.2500 ####[facility] [address] [place], [address] Cholesterol in VLDL [Mass/Vol] 35 mg/dL Normal 5-40 [facility] Comment on above: Performed By: #### L 100.0100, L500.4100, L500.2500 ####[facility] [address] [place], [address] Triglyceride [Mass/Vol] 177 mg/dL Normal [facility] Comment on above: Result Comment: The drugs N-Acetylcysteine and Metamizole may falselydepress this assay.Normal range: <150 mg/dLBorderline High: 150-199 mg/dLHigh: 200-499 mg/dLVery High: >500 mg/dL Performed By: #### L 100.0100, L500.4100, L500.2500 ####[facility] [address] [place], [address] Screening total cholesterol/ high density lipoprotein (HDL) cholesterol ratioOrdered By: Janett Smith on 02-14-2025 Cholesterol.total/Choles terol in HDL [Mass ratio] 4.40 {ratio} [facility] Serum or plasma cholesterol in HDL measurement (mass/volume)Ordered By: Janett Smith on 02-14-2025 Cholesterol in HDL [Mass/Vol] 43 mg/dL >40 [facility] Comment on above: National Cholesterol Education Program (NCEP) guidelines:<40 mg/dL: Low HDL-cholesterol (major risk factor for CHD)>= 60 mg/dL: High HDL-cholesterol (negative risk factor for CHD)HDL-cholesterol is affected by a number of factors, e.g. smoking, exercise, hormones, sex and age. Serum or plasma cholesterol measurement (mass/volume)Ordered By: Janett Smith on 02-14-2025 Cholesterol [Mass/Vol] 188 mg/dL <201 [facility] Comment on above: Cholesterol level, D esirable <200 mg/dLBorderline high cholesterol 200-239 mg/dLHigh cholesterol >=240 mg/dLRecommendations of the NCEP Adult Treatment Panel for the following risk-cutoff thresholds for the [place] population. Stress Reporton 02-14-2025 Stress Report Normal [facility] Triglycerides measurementOrd ered By: Janett Smith on 02-14-2025 Triglyceride [Mass/Vol] 177 mg/dL <199 [facility] Comment on above: The drugs N-Acetylcy steine and Metamizole may falsely depress this assay. Normal range: <150 mg/dLBorderline High: 150-199 mg/dLHigh: 200-499 mg/dLVery High: >500 mg/dL 12 Lead EKGon 11-02-2025 12 Lead EKG Normal [facility] 12 Lead EKG Normal [facility] 12 Lead EKG Normal [facility] Basic Metabolic Profile (BMP )on 02-13-2025 BUN/CRE 14.1 RATIO Normal 10-20 [facility] Comment on above: Performed By: #### L 100.0100, L501.9520, L501.4021, L501.5200, L500.2500 ####[facility] [address] [place], [address] Calcium [Mass/Vol] 9.1 mg/dL Normal 7.6-11.0 [facility] Comment on above: Performed By: #### L 100.0100, L501.9520, L501.4021, L501.5200, L500.2500 ####[facility] [address] [place], [address] Chloride [Moles/Vol] 101 mmol/L Normal 98-108 [facility] Comment on above: Performed By: #### L 100.0100, L501.9520, L501.4021, L501.5200, L500.2500 ####[facility] [address] [place], [address] CO2 [Moles/Vol] 23.7 mmol/L Normal 21.0-32.0 [facility] Comment on above: Performed By: #### L 100.0100, L501.9520, L501.4021, L501.5200, L500.2500 ####[facility] [address] [place], [address] Creatinine [Mass/Vol] 0.64 mg/dL Low 0.70-1.20 [facility] Comment on above: Performed By: #### L 100.0100, L501.9520, L501.4021, L501.5200, L500.2500 ####[facility] [address] [place], [address] ECRCL 60.35 ml/min Normal 50-250 [facility] Comment on above: Performed By: #### L 100.0100, L501.9520, L501.4021, L501.5200, L500.2500 ####[facility] [address] [place], [address] GAP 13 Normal 5-15 [facility] Comment on above: Performed By: #### L 100.0100, L501.9520, L501.4021, L501.5200, L500.2500 ####[facility] [address] [place], [address] GFR/1.73 sq M.predicted among non-blacks MDRD (S/P/Bld) [Vol rate/Area] 89 mL/min/{1.73_m2} Normal >60 [facility] Comment on above: Result Comment: mL/m in/1.73m2 CKD-EPI Creatinine Equation (2020) Performed By: #### L 100.0100, L501.9520, L501.4021, L501.5200, L500.2500 ####[facility] [address] [place], [address] Glucose [Mass/Vol] 102 mg/dL High 70-99 [facility] Comment on above: Performed By: #### L 100.0100, L501.9520, L501.4021, L501.5200, L500.2500 ####[facility] [address] [place], [address] Potassium [Moles/Vol] 4.0 mmol/L Normal 3.3-5.1 [facility] Comment on above: Result Comment: Hemo lysis present, Results??could be affected.?? Performed By: #### L 100.0100, L501.9520, L501.4021, L501.5200, L500.2500 ####[facility] [address] [place], [address] Sodium [Moles/Vol] 138 mmol/L Normal 133-145 [facility] Comment on above: Performed By: #### L 100.0100, L501.9520, L501.4021, L501.5200, L500.2500 ####[facility] [address] [place], [address] Urea nitrogen [Mass/Vol] 9 mg/dL Normal 4-19 [facility] Comment on above: Performed By: #### L 100.0100, L501.9520, L501.4021, L501.5200, L500.2500 ####[facility] [address] [place], [address] CBC W/Diff, Automatedon 11-0 2-2025 Absolute Lymph 3.08 X10 3/uL Normal 0.83-4.51 [facility] Comment on above: Performed By: #### L 100.0100, L501.9520, L501.4021, L501.5200, L500.2500 ####[facility] [address] [place], [address] Absolute Neut 4.1 X10 3/uL Normal 2.0-7.7 [facility] Comment on above: Performed By: #### L 100.0100, L501.9520, L501.4021, L501.5200, L500.2500 ####[facility] [address] [place], [address] Basophils/100 WBC (Bld) 0.9 % Normal 0-1 [facility] Comment on above: Performed By: #### L 100.0100, L501.9520, L501.4021, L501.5200, L500.2500 ####[facility] [address] [place], [address] Eosinophils/100 WBC (Bld) 1.2 % Normal 0-5 [facility] Comment on above: Performed By: #### L 100.0100, L501.9520, L501.4021, L501.5200, L500.2500 ####[facility] [address] [place], [address] Erythrocyte distribution width (RBC) [Ratio] 12.7 % Normal 11.6-14.6 [facility] Comment on above: Performed By: #### L 100.0100, L501.9520, L501.4021, L501.5200, L500.2500 ####[facility] [address] [place], [address] Hematocrit (Bld) [Volume fraction] 40.4 % Normal 37-47 [facility] Comment on above: Performed By: #### L 100.0100, L501.9520, L501.4021, L501.5200, L500.2500 ####[facility] [address] [place], [address] Hemoglobin (Bld) [Mass/Vol] 13.6 g/dL Normal 12.0-15.0 [facility] Comment on above: Performed By: #### L 100.0100, L501.9520, L501.4021, L501.5200, L500.2500 ####[facility] [address] [place], [address] IG% 0.200 Normal 0.0-0.9 [facility] Comment on above: Result Comment: IG% - Immature Granulocytes (promyelocytes, myelocytes andmetamyelocytes) > 1% indicates that a LEFT SHIFT is Present. Performed By: #### L 100.0100, L501.9520, L501.4021, L501.5200, L500.2500 ####[facility] [address] [place], [address] Lymphocytes/100 WBC (Bld) 38.1 % Normal 19-41 [facility] Comment on above: Performed By: #### L 100.0100, L501.9520, L501.4021, L501.5200, L500.2500 ####[facility] [address] [place], [address] MCH (RBC) [Entitic mass] 30.2 pg Normal 27.0-32.0 [facility] Comment on above: Performed By: #### L 100.0100, L501.9520, L501.4021, L501.5200, L500.2500 ####[facility] [address] [place], [address] MCHC (RBC) [Mass/Vol] 33.7 g/dL Normal 32-36 [facility] Comment on above: Performed By: #### L 100.0100, L501.9520, L501.4021, L501.5200, L500.2500 ####[facility] [address] [place], [address] MCV (RBC) [Entitic vol] 89.8 fL Normal 81-99 [facility] Comment on above: Performed By: #### L 100.0100, L501.9520, L501.4021, L501.5200, L500.2500 ####[facility] [address] [place], [address] Monocytes/100 WBC (Bld) 8.7 % Normal 0-10 [facility] Comment on above: Performed By: #### L 100.0100, L501.9520, L501.4021, L501.5200, L500.2500 ####[facility] [address] [place], [address] Neutrophils/100 WBC (Bld) 50.9 % Normal 47-70 [facility] Comment on above: Performed By: #### L 100.0100, L501.9520, L501.4021, L501.5200, L500.2500 ####[facility] [address] [place], [address] Nucleated RBC (Bld) [#/Vol] 0 10*3/uL Normal 0-5 [facility] Comment on above: Performed By: #### L 100.0100, L501.9520, L501.4021, L501.5200, L500.2500 ####[facility] [address] [place], [address] Platelet mean volume (Bld) [Entitic vol] 10.9 fL Normal 6.2-12.0 [facility] Comment on above: Performed By: #### L 100.0100, L501.9520, L501.4021, L501.5200, L500.2500 ####[facility] [address] [place], [address] Platelets (Bld) [#/Vol] 228 10*3/uL Normal 150-450 [facility] Comment on above: Performed By: #### L 100.0100, L501.9520, L501.4021, L501.5200, L500.2500 ####[facility] [address] [place], [address] RBC (Bld) [#/Vol] 4.50 10*6/uL Normal 4.2-5.4 [facility] Comment on above: Performed By: #### L 100.0100, L501.9520, L501.4021, L501.5200, L500.2500 ####[facility] [address] [place], [address] RDW SD 41.4 fl Normal 35.1-43.9 [facility] Comment on above: Performed By: #### L 100.0100, L501.9520, L501.4021, L501.5200, L500.2500 ####[facility] [address] [place], [address] WBC (Bld) [#/Vol] 8.1 10*3/uL Normal 4.4-11.0 [facility] Comment on above: Performed By: #### L 100.0100, L501.9520, L501.4021, L501.5200, L500.2500 ####[facility] [address] [place], [address] Chest PA and Lateralon 02-13 Chest PA and Lateral Normal [facility] Echo Completeon 02-13-2025 Echo Complete Normal [facility] Emergency Department Summary on 02-13-2025 Emergency Department Summary Normal [facility] H AND P Exam - Hospitaliston 02-13-2025 H&P Exam - Hospitalist Normal [facility] L501.4021on 02-13-2025 Trop T High Sen 14 ng/L Normal <=14 [facility] Comment on above: Performed By: #### L 100.0100, L501.9520, L501.4021, L501.5200, L500.2500 ####[facility] [address] [place], [address] Magnesiumon 02-13-2025 Magnesium [Mass/Vol] 1.8 mg/dL Normal 1.5-2.2 [facility] Comment on above: Performed By: #### L 100.0100, L501.9520, L501.4021, L501.5200, L500.2500 ####[facility] [address] [place], [address] Magnesium measurement (mass/ volume)Ordered By: Reginald Zaldivar on 02-13-2025 Magnesium (Unsp spec) [Mass/Vol] 1.8 mg/dL 1.5-2.2 [facility] TSH DL <= 0.005 mIU/L QnOrde red By: Reginald Zaldivar on 02-13-2025 TSH Qn 0.974 uIU/mL 0.300-4.200 [facility] Thyroid Stim Hormone (TSH)on 02-13-2025 TSH 0.974 uIU/mL Normal 0.300-4.200 [facility] Comment on above: Performed By: #### L 100.0100, L501.9520, L501.4021, L501.5200, L500.2500 ####[facility] [address] [place], [address] Troponin T HS 2 HRon 025 Trop T High Sen 20 ng/L High <=14 [facility] Comment on above: Performed By: #### L 499.0042 ####[facility] [address] [place], [address] Troponin T HS 4 HRon 025 Trop T High Sen 16 ng/L High <=14 [facility] Comment on above: Performed By: #### L 499.0043 ####[facility] [address] [place], [address] Troponin T.cardiac [Mass/vol ume] in Serum or Plasma by High sensitivity methodOrdered By: Reginald Zaldivar on 02-13-2025 Troponin T.cardiac High sensitivity method [Mass/Vol] 16 ng/L High <14 [facility] Troponin T.cardiac High sensitivity method [Mass/Vol] 20 ng/L High <14 [facility] Troponin T.cardiac High sensitivity method [Mass/Vol] 14 ng/L <14 [facility] Laboratory - Chemistry and C hemistry - challengeOrdered By: Lynn Christensen on 02-02-2025 Bilirubin Ql (U) Negative [facility] Glucose Ql (U) Negative [facility] Ketones Ql (U) Negative [facility] pH (U) 6 [pH] [facility] Specific gravity (U) [Rel density] 1.015 [facility] Urobilinogen (U) [Mass/Vol] 0.4806935 mg/dL [facility] Laboratory - Hematology and Cell countsOrdered By: Lynn Christensen on 02-02-2025 Hemoglobin Ql (U) Trace [facility] Laboratory - Specimen inform ationOrdered By: Lynn Christensen on 02-02-2025 Color (U) YELLOW [facility] Laboratory - UrinalysisOrder ed By: Lynn Christensen on 02-02-2025 Nitrite Ql (U) Negative [facility] Protein Ql (U) Negative [facility] MR/BMS.BUSon 02-02-2025 MR/BMS.BUS Normal [facility] No Panel InformationOrdered By: Lynn Christensen on 02-02-2025 Urine Leukocytes Negatve [facility] MR/BMS.BUSon 01-26-2025 MR/BMS.BUS Normal [facility] Cardiology Visit Reporton Cardiology Visit Report Normal [facility] MR/BMS.BUSon 01-19-2025 MR/BMS.BUS Normal [facility] PT D/C Summary (1)on 025 PT D/C Summary (1) Normal [facility] Laboratory - Chemistry and C hemistry - challengeOrdered By: Lynn Christensen on 01-14-2025 Bilirubin Ql (U) Negative [facility] Glucose Ql (U) Negative [facility] Ketones Ql (U) Negative [facility] pH (U) 5.5 [pH] [facility] Specific gravity (U) [Rel density] 1.015 [facility] Urobilinogen (U) [Mass/Vol] 0.9546605 mg/dL [facility] Laboratory - Hematology and Cell countsOrdered By: Lynn Christensen on 01-14-2025 Hemoglobin Ql (U) Moderate [facility] Laboratory - UrinalysisOrder ed By: Lynn Christensen on 01-14-2025 Nitrite Ql (U) Negative [facility] Protein Ql (U) Trace [facility] No Panel InformationOrdered By: Lynn Christensen on 01-14-2025 Urine Leukocytes Positive [facility] Urine Non-Hemolyzed Blood Negative [facility] Office Visit Reporton 2024 Office Visit Report Normal [facility] MR/BMS.BUSon 01-12-2025 MR/BMS.BUS Normal [facility] Venous duplex ultrasound rep ortOrdered By: Reginald Carey on 01-10-2025 US Vein [facility] [address] [place] [address] Venous Duplex US, Unilateral 01/07/25 1256 MR#: [id number] Acct: [id number] Name: FABRICE MOON Rep #:[id number] : 1945 79 From: Reginald Haley Attending Dr: Dr. Micah Díaz, DO Status: REG CLI Ordering Dr: Micah Díaz [...] Micah Díaz Performed By: Eusebio Richter, RVT 01/10/2534 Date _ Reginald Carey MD CC: Dr. Micah Díaz, DO ~ Date Dictated: 01/07/25 1256 Date Transcribed: 01/10/25733 Appliance Service Technician: Signed [facility] Work Phone: Venous Duplex US, Unilateral on 01-07-2025 Venous Duplex US, Unilateral Normal [facility] MR/BMS.BUSon 01-05-2025 MR/[facility]MS.[facility] Normal [facility] MR/BMS.BUS 12-29-2024 MR/BMS.[facility] Normal [facility] MR/BMS.BUS 12-22-2024 MR/BMS.[facility] Normal [facility] MR/BMS.BUSon 12-15-2024 MR/BMS.[facility] Normal [facility] MR/BMS.BUSon 12-07-2024 MR/BMS.[facility] Normal [facility] Laboratory - Chemistry and C hemistry - challengeOrdered By: Lynn Christensen on 11-17-2024 Bilirubin Ql (U) Negative [facility] Glucose Ql (U) Negative [facility] Ketones Ql (U) Negative [facility] pH (U) 6.5 [pH] [facility] Specific gravity (U) [Rel density] 1.005 [facility] Urobilinogen (U) [Mass/Vol] Negative [facility] Laboratory - Hematology and Cell countsOrdered By: Lynn Christensen on 11-17-2024 Hemoglobin Ql (U) Small [facility] Laboratory - UrinalysisOrder ed By: Lynn Christensen on 11-17-2024 Nitrite Ql (U) Negative [facility] Protein Ql (U) Negative [facility] No Panel InformationOrdered By: Lynn Christensen on 11-17-2024 Urine Leukocytes Positive [facility] Urine Non-Hemolyzed Blood Negative [facility] Magnetic resonance imaging r eportOrdered By: Jose Gardiner on 09-17-2024 Study report [facility] Imaging Services [address] [place] [address] Lower Ext Joint Only (Routine) MR#: [id number] Acct: [id number] Name: FABRICE MOON Rep #: [id number] : 1945 F 79 From: Neville Gardiner DO PCP: Dr. Micah Díaz, DO Status: REG CLI Study:Lower Ext Joint Only (Routine) Date of Exam: 09/15/24 Exam# [id number] Ordering Dr: Christiano Medeiros DPM PROCEDURE: LOWER [...] 4. Mild chronic plantar fasciitis. Reading Location: [facility] CC: ANKIT Medeiros; Dr. Micah Díaz, ~ Appliance Service Technician: Signed [facility] Lower Ext Joint Only (Routin e)on 09-15-2024 Lower Ext Joint Only (Routine) Normal [facility] Anion gap in Serum or Plasma Ordered By: Matti Camarillo on 08-31-2024 Anion gap [Moles/Vol] 11 mmol/L 08-26 [facility] BUN/creatinine ratioOrdered By: Matti Camarillo on 08-31-2024 Urea nitrogen/Creatinine [Mass ratio] 19.6 mg/mg 01-31 [facility] Bilirubin, totalOrdered By: Matti Camarillo on 08-31-2024 Bilirubin [Mass/Vol] 0.55 mg/dL 0.00-1.30 [facility] Calculated very low density lipoprotein (VLDL) cholesterol measurementOrdered By: Matti Camarillo on 08-31-2024 Calculated very low density lipoprotein (VLDL) cholesterol measurement 40 mg/dL [facility] Carbon dioxide, total [Moles /volume] in Central venous bloodOrdered By: Matti Camarillo on 08-31-2024 CO2 [Moles/Vol] 24.4 mmol/L 21.0-32.0 [facility] Chloride assayOrdered By: Randy Camarillo on 08-31-2024 Chloride [Moles/Vol] 105 mmol/L 98-108 [facility] Comprehensive Metabolic Prof ilon 08-31-2024 Albumin [Mass/Vol] 4.4 g/dL Normal 3.4-4.8 [facility] Comment on above: Performed By: #### L 501.9520, L500.4100, L500.4050, L506.1001 ####[facility] [address] [place], [address] Albumin/Globulin [Mass ratio] 1.3 {ratio} Normal 0.9-2.4 [facility] Comment on above: Performed By: #### L 501.9520, L500.4100, L500.4050, L506.1001 ####[facility] [address] [place], [address] ALK PHOS 69 U/L Normal 35-104 [facility] Comment on above: Performed By: #### L 501.9520, L500.4100, L500.4050, L506.1001 ####[facility] [address] [place], [address] ALT [Catalytic activity/Vol] 21 U/L Normal <=34 [facility] Comment on above: Performed By: #### L 501.9520, L500.4100, L500.4050, L506.1001 ####[facility] [address] [place], [address] AST [Catalytic activity/Vol] 28 U/L Normal <=31 [facility] Comment on above: Performed By: #### L 501.9520, L500.4100, L500.4050, L506.1001 ####[facility] [address] [place], [address] Bilirubin [Mass/Vol] 0.55 mg/dL Normal 0.00-1.30 [facility] Comment on above: Performed By: #### L 501.9520, L500.4100, L500.4050, L506.1001 ####[facility] [address] [place], [address] BUN/CRE 19.6 RATIO Normal 10-20 [facility] Comment on above: Performed By: #### L 501.9520, L500.4100, L500.4050, L506.1001 ####[facility] [address] [place], [address] Calcium [Mass/Vol] 9.9 mg/dL Normal 7.6-11.0 [facility] Comment on above: Performed By: #### L 501.9520, L500.4100, L500.4050, L506.1001 ####[facility] [address] [place], [address] Chloride [Moles/Vol] 105 mmol/L Normal 98-108 [facility] Comment on above: Performed By: #### L 501.9520, L500.4100, L500.4050, L506.1001 ####[facility] [address] [place], [address] CO2 [Moles/Vol] 24.4 mmol/L Normal 21.0-32.0 [facility] Comment on above: Performed By: #### L 501.9520, L500.4100, L500.4050, L506.1001 ####[facility] [address] [place], [address] Creatinine [Mass/Vol] 0.67 mg/dL Low 0.70-1.20 [facility] Comment on above: Performed By: #### L 501.9520, L500.4100, L500.4050, L506.1001 ####[facility] [address] [place], [address] GAP 11 Normal 5-15 [facility] Comment on above: Performed By: #### L 501.9520, L500.4100, L500.4050, L506.1001 ####[facility] [address] [place], [address] GFR/1.73 sq M.predicted among non-blacks MDRD (S/P/Bld) [Vol rate/Area] 88 mL/min/{1.73_m2} Normal >60 [facility] Comment on above: Result Comment: mL/m in/1.73m2 CKD-EPI Creatinine Equation (2020) Performed By: #### L 501.9520, L500.4100, L500.4050, L506.1001 ####[facility] [address] [place], [address] Globulin (S) [Mass/Vol] 3.3 g/dL Normal 2.2-4.2 [facility] Comment on above: Performed By: #### L 501.9520, L500.4100, L500.4050, L506.1001 ####[facility] [address] [place], [address] Glucose [Mass/Vol] 99 mg/dL Normal 70-99 [facility] Comment on above: Performed By: #### L 501.9520, L500.4100, L500.4050, L506.1001 ####[facility] [address] [place], [address] Potassium [Moles/Vol] 4.4 mmol/L Normal 3.3-5.1 [facility] Comment on above: Performed By: #### L 501.9520, L500.4100, L500.4050, L506.1001 ####[facility] [address] [place], [address] Sodium [Moles/Vol] 141 mmol/L Normal 133-145 [facility] Comment on above: Performed By: #### L 501.9520, L500.4100, L500.4050, L506.1001 ####[facility] [address] [place], [address] T PROT 7.6 g/dL Normal 5.9-8.4 [facility] Comment on above: Performed By: #### L 501.9520, L500.4100, L500.4050, L506.1001 ####[facility] [address] [place], [address] Urea nitrogen [Mass/Vol] 13 mg/dL Normal 4-19 [facility] Comment on above: Performed By: #### L 501.9520, L500.4100, L500.4050, L506.1001 ####[facility] [address] [place], [address] Glomerular filtration rate ( GFR) estimation/1.73 sq m using serum, plasma, or whole bOrdered By: Matti Camarillo on 08-31-2024 GFR/1.73 sq M.predicted among non-blacks MDRD (S/P/Bld) [Vol rate/Area] 88 mL/min/{1.73_m2} >60 [facility] Comment on above: mL/min/1.73m2 CKD-EP I Creatinine Equation (2020) LDL calc ser/plasOrdered By: Matti Camarillo on 08-31-2024 Cholesterol in LDL [Mass/Vol] 129 mg/dL [facility] Comment on above: Gyyehetyef=286-925 m g/dL & Higher Cydg=523 mg/dL or greater Laboratory - Chemistry and C hemistry - challengeOrdered By: Matti Camarillo on 08-31-2024 AST [Catalytic activity/Vol] 28 U/L <32 [facility] Lipid Profileon 08-31-2024 CHOL:HDL 4.24 Normal [facility] Comment on above: Performed By: #### L 501.9520, L500.4100, L500.4050, L506.1001 ####[facility] [address] [place], [address] Cholesterol [Mass/Vol] 222 mg/dL High <=200 [facility] Comment on above: Result Comment: Chol esterol level, Desirable <200 mg/dLBorderline high cholesterol 200-239 mg/dLHigh cholesterol >=240 mg/dLRecommendations of the NCEP Adult Treatment Panel for thefollowing risk-cutoff thresholds for the [place] Americanpopulation. Performed By: #### L 501.9520, L500.4100, L500.4050, L506.1001 ####[facility] [address] [place], [address] Cholesterol in HDL [Mass/Vol] 52 mg/dL Normal [facility] Comment on above: Result Comment: Mona onal Cholesterol Education Program (NCEP) guidelines:<40 mg/dL: Low HDL-cholesterol (major risk factor for CHD)>= 60 mg/dL: High HDL-cholesterol (negative risk factor forCHD)HDL-cholesterol is affected by a number of factors, e.g.smoking, exercise, hormones, sex and age. Performed By: #### L 501.9520, L500.4100, L500.4050, L506.1001 ####[facility] [address] [place], [address] Cholesterol in LDL [Mass/Vol] 129 mg/dL Normal [facility] Comment on above: Result Comment: Bord aabbps=911-665 mg/dL Higher Gtbl=866 mg/dL or greater Performed By: #### L 501.9520, L500.4100, L500.4050, L506.1001 ####[facility] [address] [place], [address] Cholesterol in VLDL [Mass/Vol] 40 mg/dL Normal 5-40 [facility] Comment on above: Performed By: #### L 501.9520, L500.4100, L500.4050, L506.1001 ####[facility] [address] [place], [address] Triglyceride [Mass/Vol] 202 mg/dL High [facility] Comment on above: Result Comment: The drugs N-Acetylcysteine and Metamizole may falselydepress this assay.Normal range: <150 mg/dLBorderline High: 150-199 mg/dLHigh: 200-499 mg/dLVery High: >500 mg/dL Performed By: #### L 501.9520, L500.4100, L500.4050, L506.1001 ####[facility] [address] [place], [address] Potassium measurement (mass/ volume)Ordered By: Matti Camarillo on 08-31-2024 Potassium (Unsp spec) [Mass/Vol] 4.4 mmol/L 3.3-5.1 [facility] Screening total cholesterol/ high density lipoprotein (HDL) cholesterol ratioOrdered By: Matti Camarillo on 08-31-2024 Cholesterol.total/Choles terol in HDL [Mass ratio] 4.24 {ratio} [facility] Serum creatinine measurement (mass/volume)Ordered By: Matti Camarillo on 08-31-2024 Creatinine [Mass/Vol] 0.67 mg/dL Low 0.70-1.20 [facility] Serum globulin measurementOr dered By: Matti Camarillo on 08-31-2024 Globulin (S) [Mass/Vol] 3.3 g/dL 2.2-4.2 [facility] Serum glucose measurement (m ass/volume)Ordered By: Matti Camarillo on 08-31-2024 Glucose [Mass/Vol] 99 mg/dL 70-99 [facility] Serum or plasma alanine oliveira otransferase (ALT) measurementOrdered By: Matti Camarillo on 08-31-2024 ALT [Catalytic activity/Vol] 21 U/L <35 [facility] Serum or plasma albumin deo urement (mass/volume)Ordered By: Matti Camarillo on 08-31-2024 Albumin [Mass/Vol] 4.4 g/dL 3.4-4.8 [facility] Serum or plasma albumin/glob ulin mass ratioOrdered By: Matti Camarillo on 08-31-2024 Albumin/Globulin [Mass ratio] 1.3 {ratio} 0.9-2.4 [facility] Serum or plasma alkaline liberty sphatase measurementOrdered By: Matti Camarillo on 08-31-2024 ALP [Catalytic activity/Vol] 69 U/L 35-104 [facility] Serum or plasma calcium deo urement (mass/volume)Ordered By: Matit Camarillo on 08-31-2024 Calcium [Mass/Vol] 9.9 mg/dL 7.6-11.0 [facility] Serum or plasma cholesterol in HDL measurement (mass/volume)Ordered By: Matti Camarillo on 08-31-2024 Cholesterol in HDL [Mass/Vol] 52 mg/dL >40 [facility] Comment on above: National Cholesterol Education Program (NCEP) guidelines:<40 mg/dL: Low HDL-cholesterol (major risk factor for CHD)>= 60 mg/dL: High HDL-cholesterol (negative risk factor for CHD)HDL-cholesterol is affected by a number of factors, e.g. smoking, exercise, hormones, sex and age. Serum or plasma cholesterol measurement (mass/volume)Ordered By: Matti Camarillo on 08-31-2024 Cholesterol [Mass/Vol] 222 mg/dL High <201 [facility] Comment on above: Cholesterol level, D esirable <200 mg/dLBorderline high cholesterol 200-239 mg/dLHigh cholesterol >=240 mg/dLRecommendations of the NCEP Adult Treatment Panel for the following risk-cutoff thresholds for the [place] population. Serum or plasma urea nitroge n measurement (mass/volume)Ordered By: Matti Camarillo on 08-31-2024 Urea nitrogen [Mass/Vol] 13 mg/dL 4-19 [facility] Sodium levelOrdered By: Kiran Camarillo on 08-31-2024 Sodium [Moles/Vol] 141 mmol/L 133-145 [facility] TSH DL <= 0.005 mIU/L QnOrde red By: Matti Camarillo on 08-31-2024 TSH Qn 1.540 uIU/mL 0.300-4.200 [facility] Thyroid Stim Hormone (TSH)on 08-31-2024 TSH 1.540 uIU/mL Normal 0.300-4.200 [facility] Comment on above: Performed By: #### L 501.9520, L500.4100, L500.4050, L506.1001 ####[facility] [address] [place], [address] Total proteinOrdered By: Jacinto Camarillo on 08-31-2024 Protein [Mass/Vol] 7.6 g/dL 5.9-8.4 [facility] Triglycerides measurementOrd ered By: Matti Camarillo on 08-31-2024 Triglyceride [Mass/Vol] 202 mg/dL High <199 [facility] Comment on above: The drugs N-Acetylcy steine and Metamizole may falsely depress this assay. Normal range: <150 mg/dLBorderline High: 150-199 mg/dLHigh: 200-499 mg/dLVery High: >500 mg/dL Vitamin D,25 Hydroxyon 08-31 Vitamin D 25-OH 53.3 ng/mL Normal 30-100 [facility] Comment on above: Result Comment: Gill min D StatusDeficiency: <20 ng/mL (50nmol/L)Insufficiency: 20-30 ng/mL (50-75 nmol/L)Sufficiency: 30-100 ng/mL (75-250 nmol/L)Toxicity: >100 ng/mL (>250 nmol/L) Performed By: #### L 501.9520, L500.4100, L500.4050, L506.1001 ####[facility] [address] [place], [address] Echo Completeon 07-22-2024 Echo Complete Normal [facility] Echocardiogram study reportO rdered By: Angel Fairchild on 07-22-2024 Study report [facility] [address] [place] [address] Echo Complete 07/22/24 1017 MR#: [id number] Acct: [id number] Name: FABRICE MOON Rep #:[id number] : 1945 79 From: Angel Haley Attending Dr: ZAYDA Boston S tatus: REG CLI Ordering Dr: Milka Mckenna NP DRUG DISCOVERY INFORMATICS SPECIALIST-C Anam e: 07/22/24 Location: [facility] Sex: F C Admitted: Reason [...] 1538 Date _ Angel Fairchild MD CC: DRUG DISCOVERY INFORMATICS SPECIALIST-C Milka Mckenna; Dr. Micah Díaz, DO ~ Date Dictated: 07/22/24 1017 Date Transcribed: 07/22/241537 Appliance Service Technician: Signed [facility] Work Phone: Cardiology Visit Reporton Cardiology Visit Report Normal [facility] Absolute lymphocyte countOrd ered By: Micah Díaz on 06-28-2024 Lymphocytes Auto (Unsp spec) [#/Vol] 2.16 10*3/uL 0.83-4.51 [facility] Absolute neutrophil countOrd ered By: Micah Díaz on 06-28-2024 Neutrophils (Bld) [#/Vol] 5.0 10*3/uL 2.0-7.7 [facility] Automated lymphocyte count a s percentage of total leukocytesOrdered By: Micah Díaz on 06-28-2024 Lymphocytes/100 WBC Auto (Unsp spec) 27.7 % 19-41 [facility] Basophil percentageOrdered B y: Micah Díaz on 06-28-2024 Basophils/100 WBC (Bld) 0.6 % 0-1 [facility] CBC W/Diff, Automatedon 06-12 Absolute Lymph 2.16 X10 3/uL Normal 0.83-4.51 [facility] Comment on above: Performed By: #### L 503.6129, L503.6550, L100.0100 ####[facility] [address] [place], [address] Absolute Neut 5.0 X10 3/uL Normal 2.0-7.7 [facility] Comment on above: Performed By: #### L 503.6150, L503.6550, L100.0100 ####[facility] [address] [place], [address] Basophils/100 WBC (Bld) 0.6 % Normal 0-1 [facility] Comment on above: Performed By: #### L 503.6150, L503.6550, L100.0100 ####[facility] [address] [place], [address] Eosinophils/100 WBC (Bld) 1.3 % Normal 0-5 [facility] Comment on above: Performed By: #### L 503.6150, L503.6550, L100.0100 ####[facility] [address] [place], [address] Erythrocyte distribution width (RBC) [Ratio] 12.8 % Normal 11.6-14.6 [facility] Comment on above: Performed By: #### L 503.6150, L503.6550, L100.0100 ####[facility] [address] [place], [address] Hematocrit (Bld) [Volume fraction] 39.7 % Normal 37-47 [facility] Comment on above: Performed By: #### L 503.6150, L503.6550, L100.0100 ####[facility] [address] [place], [address] Hemoglobin (Bld) [Mass/Vol] 13.2 g/dL Normal 12.0-15.0 [facility] Comment on above: Performed By: #### L 503.6150, L503.6550, L100.0100 ####[facility] [address] [place], [address] IG% 0.400 Normal 0.0-0.9 [facility] Comment on above: Result Comment: IG% - Immature Granulocytes (promyelocytes, myelocytes andmetamyelocytes) > 1% indicates that a LEFT SHIFT is Present. Performed By: #### L 503.6150, L503.6550, L100.0100 ####[facility] [address] [place], [address] Lymphocytes/100 WBC (Bld) 27.7 % Normal 19-41 [facility] Comment on above: Performed By: #### L 503.6150, L503.6550, L100.0100 ####[facility] [address] [place], [address] MCH (RBC) [Entitic mass] 30.4 pg Normal 27.0-32.0 [facility] Comment on above: Performed By: #### L 503.6150, L503.6550, L100.0100 ####[facility] [address] [place], [address] MCHC (RBC) [Mass/Vol] 33.2 g/dL Normal 32-36 [facility] Comment on above: Performed By: #### L 503.6150, L503.6550, L100.0100 ####[facility] [address] [place], [address] MCV (RBC) [Entitic vol] 91.5 fL Normal 81-99 [facility] Comment on above: Performed By: #### L 503.6150, L503.6550, L100.0100 ####[facility] [address] [place], [address] Monocytes/100 WBC (Bld) 6.1 % Normal 0-10 [facility] Comment on above: Performed By: #### L 503.6150, L503.6550, L100.0100 ####[facility] [address] [place], [address] Neutrophils/100 WBC (Bld) 63.9 % Normal 47-70 [facility] Comment on above: Performed By: #### L 503.6150, L503.6550, L100.0100 ####[facility] [address] [place], [address] Nucleated RBC (Bld) [#/Vol] 0 10*3/uL Normal 0-5 [facility] Comment on above: Performed By: #### L 503.6150, L503.6550, L100.0100 ####[facility] [address] [place], [address] Platelet mean volume (Bld) [Entitic vol] 10.7 fL Normal 6.2-12.0 [facility] Comment on above: Performed By: #### L 503.6150, L503.6550, L100.0100 ####[facility] [address] [place], [address] Platelets (Bld) [#/Vol] 217 10*3/uL Normal 150-450 [facility] Comment on above: Performed By: #### L 503.6150, L503.6550, L100.0100 ####[facility] [address] [place], [address] RBC (Bld) [#/Vol] 4.34 10*6/uL Normal 4.2-5.4 [facility] Comment on above: Performed By: #### L 503.6150, L503.6550, L100.0100 ####[facility] [address] [place], [address] RDW SD 42.5 fl Normal 35.1-43.9 [facility] Comment on above: Performed By: #### L 503.6150, L503.6550, L100.0100 ####[facility] [address] [place], [address] WBC (Bld) [#/Vol] 7.8 10*3/uL Normal 4.4-11.0 [facility] Comment on above: Performed By: #### L 503.6150, L503.6550, L100.0100 ####[facility] [address] [place], [address] Eosinophil percentageOrdered By: Micah Díaz on 06-28-2024 Eosinophils/100 WBC (Bld) 1.3 % 0-5 [facility] Erythrocyte distribution wid th ratioOrdered By: Micah Díaz on 06-28-2024 Erythrocyte distribution width (RBC) [Ratio] 12.8 % 11.6-14.6 [facility] Erythrocyte distribution wid th standard deviationOrdered By: Micah Díaz on 06-28-2024 Erythrocyte distribution width (RBC) [Entitic vol] 42.5 fL 35.1-43.9 [facility] Erythrocyte distribution width (RBC) [Ratio] 42.5 fl 35.1-43.9 [facility] Ferritinon 06-28-2024 Ferritin [Mass/Vol] 96 ng/mL Normal 22-378 [facility] Comment on above: Performed By: #### L 503.6150, L503.6550, L100.0100 ####[facility] [address] [place], [address] Hematocrit Auto (Bld) [Volum e fraction]Ordered By: Micah Díaz on 06-28-2024 Hematocrit (Bld) [Volume fraction] 39.7 % 37-47 [facility] Hemoglobin measurementOrdere d By: Micah Díaz on 06-28-2024 Hemoglobin (Bld) [Mass/Vol] 13.2 g/dL 12.0-15.0 [facility] Immature granulocytes/100 WB C Auto (Bld)Ordered By: Micah Díaz on 06-28-2024 Immature granulocytes/100 WBC (Bld) 0.400 % 0.0-0.9 [facility] Comment on above: IG% - Immature Granu locytes (promyelocytes, myelocytes and metamyelocytes) > 1% indicates that a LEFT SHIFT is Present. Ironon 06-28-2024 Iron [Mass/Vol] 81 ug/dL Normal 50-170 [facility] Comment on above: Performed By: #### L 503.6150, L503.6550, L100.0100 ####[facility] [address] [place], [address] Iron (Unsp spec) [Mass/Mass] Ordered By: Micah Díaz on 06-28-2024 Iron [Mass/Vol] 81 ug/dL 50-170 [facility] Iron measurement (mass/mass) Ordered By: Micah Díaz on 06-28-2024 Iron (Unsp spec) [Mass/Mass] 81 ug/dL 50-170 [facility] Lymphocytes Auto (Unsp spec) [#/Vol]Ordered By: Micah Díaz on 06-28-2024 Lymphocytes (Bld) [#/Vol] 2.16 10*3/uL 0.83-4.51 [facility] Lymphocytes/100 WBC Auto (Un sp spec)Ordered By: Micah Díaz on 06-28-2024 Lymphocytes/100 WBC (Bld) 27.7 % 19-41 [facility] MCV (mean corpuscular volume ) determinationOrdered By: Micah Díaz on 06-28-2024 MCV (RBC) [Entitic vol] 91.5 fL 81-99 [facility] Mean corpuscular hemoglobin (MCH) determinationOrdered By: Micah Díaz on 06-28-2024 MCH (RBC) [Entitic mass] 30.4 pg 27.0-32.0 [facility] Mean corpuscular hemoglobin concentration (MCHC) determinationOrdered By: Micah Díaz on 06-28-2024 MCHC (RBC) [Mass/Vol] 33.2 g/dL 32-36 [facility] Mean platelet volume determi nationOrdered By: Micah Díaz on 06-28-2024 Platelet mean volume (Bld) [Entitic vol] 10.7 fL 6.2-12.0 [facility] Monocyte percentageOrdered B y: Micah Díaz on 06-28-2024 Monocytes/100 WBC (Bld) 6.1 % 0-10 [facility] Neutrophil percentageOrdered By: Micah Díaz on 06-28-2024 Neutrophils/100 WBC (Bld) 63.9 % 47-70 [facility] Nucleated red blood cell per centageOrdered By: Micah Díaz on 06-28-2024 Nucleated RBC/100 WBC (Bld) [Ratio] 0 % 0-5 [facility] Platelet countOrdered By: Balbir Díaz on 06-28-2024 Platelets (Bld) [#/Vol] 217 10*3/uL 150-450 [facility] RBC Auto (Bld) [#/Vol]Ordere d By: Micah Díaz on 06-28-2024 RBC (Bld) [#/Vol] 4.34 10*6/uL 4.2-5.4 [facility] Serum or plasma ferritin olivia surement (mass/volume)Ordered By: Micah Díaz on 06-28-2024 Ferritin [Mass/Vol] 96 ng/mL 22-378 [facility] White blood cell (WBC) count Ordered By: Micah Díaz on 06-28-2024 WBC (Bld) [#/Vol] 7.8 10*3/uL 4.4-11.0 [facility] Anion gap in Serum or Plasma Ordered By: Christiano Medeiros on 06-17-2024 Anion gap [Moles/Vol] 13 mmol/L 5-15 [facility] BUN/creatinine ratioOrdered By: Christiano Medeiros on 06-17-2024 Urea nitrogen/Creatinine [Mass ratio] 17.3 mg/mg 10- [facility] Basic Metabolic Profile (BMP )on 06-17-2024 BUN/CRE 17.3 RATIO Normal - [facility] Comment on above: Performed By: #### L 501.1400, L500.2500 ####[facility] [address] [place], [address] Calcium [Mass/Vol] 9.7 mg/dL Normal 7.6-11.0 [facility] Comment on above: Performed By: #### L 501.1400, L500.2500 ####[facility] [address] [place], [address] Chloride [Moles/Vol] 102 mmol/L Normal 98-108 [facility] Comment on above: Performed By: #### L 501.1400, L500.2500 ####[facility] [address] [place], [address] CO2 [Moles/Vol] 24.8 mmol/L Normal 21.0-32.0 [facility] Comment on above: Performed By: #### L 501.1400, L500.2500 ####[facility] [address] [place], [address] Creatinine [Mass/Vol] 0.75 mg/dL Normal 0.70-1.20 [facility] Comment on above: Performed By: #### L 501.1400, L500.2500 ####[facility] [address] [place], [address] GAP 13 Normal 5-15 [facility] Comment on above: Performed By: #### L 501.1400, L500.2500 ####[facility] [address] [place], [address] GFR/1.73 sq M.predicted among non-blacks MDRD (S/P/Bld) [Vol rate/Area] 80 mL/min/{1.73_m2} Normal >60 [facility] Comment on above: Result Comment: mL/m in/1.73m2 CKD-EPI Creatinine Equation (2020) Performed By: #### L 501.1400, L500.2500 ####[facility] [address] [place], [address] Glucose [Mass/Vol] 97 mg/dL Normal 70-99 [facility] Comment on above: Performed By: #### L 501.1400, L500.2500 ####[facility] [address] [place], [address] Potassium [Moles/Vol] 4.3 mmol/L Normal 3.3-5.1 [facility] Comment on above: Performed By: #### L 501.1400, L500.2500 ####[facility] [address] [place], [address] Sodium [Moles/Vol] 140 mmol/L Normal 133-145 [facility] Comment on above: Performed By: #### L 501.1400, L500.2500 ####[facility] [address] [place], [address] Urea nitrogen [Mass/Vol] 13 mg/dL Normal 4-19 [facility] Comment on above: Performed By: #### L 501.1400, L500.2500 ####[facility] [address] [place], [address] Carbon dioxide, total [Moles /volume] in Central venous bloodOrdered By: Christiano Medeiros on 06-17-2024 CO2 [Moles/Vol] 24.8 mmol/L 21.0-32.0 [facility] Chloride assayOrdered By: Herman Medeiros on 06-17-2024 Chloride [Moles/Vol] 102 mmol/L 98-108 [facility] GFR/1.73 sq M.predicted robinson g non-blacks MDRD (S/P/Bld) [Vol rate/Area]Ordered By: Christiano Medeiros on 06-17-2024 Estimated GFR (MDRD) Non-Af Amer 80 >60 [facility] Comment on above: mL/min/1.73m2 CKD-EP I Creatinine Equation (2020) Glomerular filtration rate ( GFR) estimation/1.73 sq m using serum, plasma, or whole bOrdered By: Christiano Medeiros on 06-17-2024 GFR/1.73 sq M.predicted among non-blacks MDRD (S/P/Bld) [Vol rate/Area] 80 mL/min/{1.73_m2} >60 [facility] Comment on above: mL/min/1.73m2 CKD-EP I Creatinine Equation (2020) Potassium (Unsp spec) [Mass/ Vol]Ordered By: Christiano Medeiros on 06-17-2024 Potassium [Moles/Vol] 4.3 mmol/L 3.3-5.1 [facility] Potassium measurement (mass/ volume)Ordered By: Christiano Medeiros on 06-17-2024 Potassium (Unsp spec) [Mass/Vol] 4.3 mmol/L 3.3-5.1 [facility] Serum creatinine measurement (mass/volume)Ordered By: Christiano Medeiros on 06-17-2024 Creatinine [Mass/Vol] 0.75 mg/dL 0.70-1.20 [facility] Serum glucose measurement (m ass/volume)Ordered By: Christiano Medeiros on 06-17-2024 Glucose [Mass/Vol] 97 mg/dL 70-99 [facility] Serum or plasma calcium deo urement (mass/volume)Ordered By: Christiano Medeiros on 06-17-2024 Calcium [Mass/Vol] 9.7 mg/dL 7.6-11.0 [facility] Serum or plasma urea nitroge n measurement (mass/volume)Ordered By: Christiano Medeiros on 06-17-2024 Urea nitrogen [Mass/Vol] 13 mg/dL 4-19 [facility] Serum or plasma uric acid me asurement (mass/volume)Ordered By: Christiano Medeiros on 06-17-2024 Urate [Mass/Vol] 6.6 mg/dL High 2.6-6.0 [facility] Comment on above: The drugs N-Acetylcy steine and Metamizole may falsely depress this assay. Sodium levelOrdered By: Srikanth Medeiros on 06-17-2024 Sodium [Moles/Vol] 140 mmol/L 133-145 [facility] Uric Acidon 06-17-2024 URIC 6.6 mg/dL High 2.6-6.0 [facility] Comment on above: Result Comment: The drugs N-Acetylcysteine and Metamizole may falselydepress this assay. Performed By: #### L 501.1400, L500.2500 ####[facility] [address] [place], [address] PT D/C Summary (1)on 025 PT D/C Summary (1) Normal [facility] KAJAL SCREENING W TOMOon 05-19 KAJAL SCREENING W SYBIL * * *Final Report* * * DATE OF EXAM: May 19 2024 2:22PM WRW [id number] - KAJAL SCREENING W SYBIL / PROCEDURE REASON: multiple diagnoses * * * * Physician Interpretation * * * * RESULT: [facility] [address] [place] [address] #[id number] - KAJAL SCREENING W SYBIL HISTORY: 78 [...] Aylin Nicole M.D. 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 As applicable, any other physician, advance practice provider, medical student, or other health professional student that will be observing or involved in the sensitive examination for educational or training purposes was discussed with the Patient or Authorized Paper Winder. The Patient or Authorized Paper Winder has agreed to proceed with the sensitive [...] external genitalia normal, normal Bartholin's glands, urethra, [place]'s glands, no vulvar lesions, good vaginal support, [...] (more content not included)... Normal [facility] Inital Evaluation (1) - PTon 05-12-2024 Inital Evaluation (1) - PT Normal [facility] [id number]-Yqbjcfe DOrdered By: Raúl Camarillo on 04-27-2024 Vitamin D 25-Hydroxy 43.8 ng/mL [facility] Comment on above: Vitamin D 25(OH) Sta tus Range Deficiency <20 ng/mL (50nmol/L) Insufficiency 20 - 30 ng/mL (50 - 75 nmol/L) Sufficiency 30 - 100 ng/mL (75 - 250 nmol/L) Toxicity >100 ng/mL (>250 nmol/L) Albumin to globulin ratioOrd ered By: Matti Camarillo on 04-27-2024 Albumin/Globulin [Mass ratio] 1.0 {ratio} 0.9-2.4 [facility] Bilirubin, totalOrdered By: Matti Camarillo on 04-27-2024 Bilirubin [Mass/Vol] 0.60 mg/dL 0.20-1.00 [facility] Comment on above: For patients on eltr ombopag therapy, use of Dimension [place] TBIL is not recommended. Blood urea nitrogen (BUN)/cr eatinine ratioOrdered By: Matti Camarillo on 04-27-2024 Urea nitrogen/Creatinine [Mass ratio] 13.9 mg/mg 10-20 [facility] Carbon dioxide measurementOr dered By: Matti Camarillo on 04-27-2024 CO2 [Moles/Vol] 27.0 mmol/L 21.0-32.0 [facility] Chloride measurementOrdered By: Matti Camarillo on 04-27-2024 Chloride [Moles/Vol] 105 mmol/L 98-107 [facility] Comprehensive Metabolic Prof ilon 04-27-2024 Albumin [Mass/Vol] 3.8 g/dL Normal 3.2-5.0 [facility] Comment on above: Performed By: #### L 501.9520, L506.1000, L500.4050 ####[facility] [address] [place], [address] Albumin/Globulin [Mass ratio] 1.0 {ratio} Normal 0.9-2.4 [facility] Comment on above: Performed By: #### L 501.9520, L506.1000, L500.4050 ####[facility] [address] [place], [address] ALK P 80 U/L Normal 45-117 [facility] Comment on above: Performed By: #### L 501.9520, L506.1000, L500.4050 ####[facility] [address] [place], [address] ALT [Catalytic activity/Vol] 30 U/L Normal 13-56 [facility] Comment on above: Performed By: #### L 501.9520, L506.1000, L500.4050 ####[facility] [address] [place], [address] AST [Catalytic activity/Vol] 25 U/L Normal 15-37 [facility] Comment on above: Performed By: #### L 501.9520, L506.1000, L500.4050 ####[facility] [address] [place], [address] Bilirubin [Mass/Vol] 0.60 mg/dL Normal 0.20-1.00 [facility] Comment on above: Result Comment: For patients on eltrombopag therapy, use of [place]ension [place] TBIL is not recommended. Performed By: #### L 501.9520, L506.1000, L500.4050 ####[facility] [address] [place], [address] BUN/CRE 13.9 RATIO Normal 10-20 [facility] Comment on above: Performed By: #### L 501.9520, L506.1000, L500.4050 ####[facility] [address] [place], [address] CA,Total 9.5 mg/dL Normal 8.5-10.1 [facility] Comment on above: Performed By: #### L 501.9520, L506.1000, L500.4050 ####[facility] [address] [place], [address] Chloride [Moles/Vol] 105 mmol/L Normal 98-107 [facility] Comment on above: Performed By: #### L 501.9520, L506.1000, L500.4050 ####[facility] [address] [place], [address] CO2 [Moles/Vol] 27.0 mmol/L Normal 21.0-32.0 [facility] Comment on above: Performed By: #### L 501.9520, L506.1000, L500.4050 ####[facility] [address] [place], [address] Creatinine [Mass/Vol] 0.72 mg/dL Normal 0.55-1.02 [facility] Comment on above: Result Comment: The validity of the calculated GFR GFRAA in patients over70 years has not been determined. Clinical correlation isessential. Performed By: #### L 501.9520, L506.1000, L500.4050 ####[facility] [address] [place], [address] EST GFR - AA 100 mL/min Normal >60 [facility] Comment on above: Result Comment: Afri can Iraqi GFR Calc Performed By: #### L 501.9520, L506.1000, L500.4050 ####[facility] [address] [place], [address] GAP 7 Normal 5-15 [facility] Comment on above: Performed By: #### L 501.9520, L506.1000, L500.4050 ####[facility] [address] [place], [address] GFR/1.73 sq M.predicted among non-blacks MDRD (S/P/Bld) [Vol rate/Area] 83 mL/min/{1.73_m2} Normal >60 [facility] Comment on above: Result Comment: Non- GFR Calc Performed By: #### L 501.9520, L506.1000, L500.4050 ####[facility] [address] [place], [address] Globulin (S) [Mass/Vol] 3.9 g/dL Normal 2.2-4.2 [facility] Comment on above: Performed By: #### L 501.9520, L506.1000, L500.4050 ####[facility] [address] [place], [address] Glucose [Mass/Vol] 95 mg/dL Normal 74-106 [facility] Comment on above: Performed By: #### L 501.9520, L506.1000, L500.4050 ####[facility] [address] [place], [address] Potassium [Moles/Vol] 4.3 mmol/L Normal 3.5-5.1 [facility] Comment on above: Performed By: #### L 501.9520, L506.1000, L500.4050 ####[facility] [address] [place], [address] Sodium [Moles/Vol] 139 mmol/L Normal 136-145 [facility] Comment on above: Performed By: #### L 501.9520, L506.1000, L500.4050 ####[facility] [address] [place], [address] T PROT 7.7 g/dL Normal 6.4-8.2 [facility] Comment on above: Performed By: #### L 501.9520, L506.1000, L500.4050 ####[facility] [address] [place], [address] Urea nitrogen [Mass/Vol] 10 mg/dL Normal 7-18 [facility] Comment on above: Performed By: #### L 501.9520, L506.1000, L500.4050 ####[facility] [address] [place], [address] Estimated glomerular filtrat ion rate (GFR) AmericanOrdered By: Matti Camarillo on 04-27-2024 Estimated GFR (MDRD) Amer 100 mL/min >60 [facility] Comment on above: GFR Calc Glomerular filtration rate ( GFR) estimationOrdered By: Matti Camarillo on 04-27-2024 Estimated GFR (MDRD) Non-Af Amer 83 mL/min >60 [facility] Comment on above: Non- GFR Calc Glucose measurementOrdered B y: Matti Camarillo on 04-27-2024 Glucose [Mass/Vol] 95 mg/dL 74-106 [facility] Laboratory - Chemistry and C hemistry - challengeOrdered By: Matti Camarillo on 04-27-2024 AST [Catalytic activity/Vol] 25 U/L 15-37 [facility] Potassium measurementOrdered By: Matti Camarillo on 04-27-2024 Potassium [Moles/Vol] 4.3 mmol/L 3.5-5.1 [facility] Serum anion gap measurementO rdered By: Matti Camarillo on 04-27-2024 Anion gap [Moles/Vol] 7 mmol/L 5-15 [facility] Serum globulin measurementOr dered By: Matti Camarillo on 04-27-2024 Globulin (S) [Mass/Vol] 3.9 g/dL 2.2-4.2 [facility] Serum or plasma alanine oliveira otransferase (ALT) measurementOrdered By: Matti Camarillo on 04-27-2024 ALT [Catalytic activity/Vol] 30 U/L 13-56 [facility] Serum or plasma albumin deo urement (mass/volume)Ordered By: Matti Camarillo on 04-27-2024 Albumin [Mass/Vol] 3.8 g/dL 3.2-5.0 [facility] Serum or plasma alkaline liberty sphatase measurementOrdered By: Matti Camarillo on 04-27-2024 ALP [Catalytic activity/Vol] 80 U/L 45-117 [facility] Serum or plasma calcium deo urement (mass/volume)Ordered By: Matti Camarillo on 04-27-2024 Calcium [Mass/Vol] 9.5 mg/dL 8.5-10.1 [facility] Serum or plasma creatinine m easurement (mass/volume)Ordered By: Matti Camarillo on 04-27-2024 Creatinine [Mass/Vol] 0.72 mg/dL 0.55-1.02 [facility] Comment on above: The validity of the calculated GFR & GFRAA in patients over 70 years has not been determined. Clinical correlation is essential. Serum or plasma urea nitroge n measurement (mass/volume)Ordered By: Matti Camarillo on 04-27-2024 Urea nitrogen [Mass/Vol] 10 mg/dL 7-18 [facility] Sodium levelOrdered By: Kiran Camarillo on 04-27-2024 Sodium [Moles/Vol] 139 mmol/L 136-145 [facility] TSH QnOrdered By: Matti baker on 04-27-2024 Thyroid Stimulating Hormone (TSH) 1.640 uIU/mL 0.358-3.740 [facility] Thyroid Stim Hormone (TSH)on 04-27-2024 TSH 1.640 uIU/mL Normal 0.358-3.740 [facility] Comment on above: Performed By: #### L 501.9520, L506.1000, L500.4050 ####[facility] [address] [place], [place], [address] Total proteinOrdered By: Jacinto Camarillo on 04-27-2024 Protein [Mass/Vol] 7.7 g/dL 6.4-8.2 [facility] Vitamin D,25 Hydroxyon 04-27 Vitamin D 25-OH 43.8 ng/mL Normal [facility] Comment on above: Result Comment: Gill min D 25(OH) Status Range Deficiency <20 ng/mL (50nmol/L) Insufficiency 20 - 30 ng/mL (50 - 75 nmol/L) Sufficiency 30 - 100 ng/mL (75 - 250 nmol/L) Toxicity >100 ng/mL (>250 nmol/L) Performed By: #### L 501.9520, L506.1000, L500.4050 ####[facility] [address] [place], [place], [address] CNPNon 03-26-2024 CNPN Telephone (OBGYWM) FABRICE MOON ([id number]) 1945 F CHT Date Time Provider Department 03/26/24 CASSY ZUNIGA [...] Pelvic/breast exam please scheduel (any 20 min measurer slot) MD Alonzo Patino Tara, RN 03/29/2024 [...] mammogram for malignant neoplasm of breast [Z12.31] Order(s):[facility] SCREENING [[id number]] Order #: [id number] FUTURE Prescriptions as of 03/29/2024 - levothyroxine [...] NEC/NOS [E78.5] 07/22/2003 MYALGIA AND MYOSITIS NOS [[id number]] 07/22/2003 LUMBOSACRAL NEURITIS NOS [[id number]] 07/27/2003 POSTLAMINECT SYND-LUMBAR [M96.1] 07/27/2003 ABDOMINAL PAIN [...] BHUMI BEAVERS on 03/29/24 Normal [facility] Basophil percentageOrdered B y: ELZBIETA KNOX on 07-01-2023 Bilirubin [Mass/Vol] 0.60 mg/dL 0.20-1.00 [facility] Comment on above: For patients on eltr ombopag therapy, use of [place] TBIL is not recommended. Chloride [Moles/Vol] 106 mmol/L 98-107 [facility] Glucose [Mass/Vol] 98 mg/dL 74-106 [facility] Potassium [Moles/Vol] 4.1 mmol/L 3.5-5.1 [facility] Protein [Mass/Vol] 7.7 g/dL 6.4-8.2 [facility] Sodium [Moles/Vol] 142 mmol/L 136-145 [facility] Laboratory - Chemistry and C hemistry - challengeOrdered By: ELZBIETA KNOX on 07-01-2023 Albumin/Globulin [Mass ratio] 1.0 {ratio} 0.9-2.4 [facility] ALP [Catalytic activity/Vol] 70 U/L 45-117 [facility] ALT [Catalytic activity/Vol] 30 U/L 13-56 [facility] CO2 [Moles/Vol] 29.0 mmol/L 21.0-32.0 [facility] Globulin (S) [Mass/Vol] 3.9 g/dL 2.2-4.2 W [facility] Urea nitrogen/Creatinine [Mass ratio] 17.9 mg/mg 10-20 [facility] No Panel InformationOrdered By: ELZBIETA KNOX on 07-01-2023 Estimated GFR (MDRD) Amer 99 mL/min >60 [facility] Comment on above: GFR Calc Estimated GFR (MDRD) Non-Af Amer 82 mL/min >60 [facility] Comment on above: Non- GFR Calc Serum or plasma calcium deo urement (mass/volume)Ordered By: ELZBIETA KNOX on 07-01-2023 Calcium [Mass/Vol] 9.1 mg/dL 8.5-10.1 [facility] Serum or plasma creatinine m easurement (mass/volume)Ordered By: ELZBIETA KNOX on 07-01-2023 Creatinine [Mass/Vol] 0.73 mg/dL 0.55-1.02 [facility] Comment on above: The validity of the calculated GFR & GFRAA in patients over 70 years has not been determined. Clinical correlation is essential. Serum or plasma thyroid stim ulating hormone (TSH) measurement (units/volume)Ordered By: ELZBIETA KNOX on 07-01-2023 TSH Qn 1.08 uIU/mL 0.358-3.74 [facility] Serum or plasma urea nitroge n measurement (mass/volume)Ordered By: ELZBIETA KNOX on 07-01-2023 Urea nitrogen [Mass/Vol] 13 mg/dL 7-18 [facility] Thin prep Papanicolaou smear with manual screeningOrdered By: ELZBIETA KNOX on 07-01-2023 Thin prep Papanicolaou smear with manual screening 3.8 g/dL 3.2-5.0 [facility] Thin prep Papanicolaou smear with manual screening 18 U/L 15-37 [facility] Thin prep Papanicolaou smear with manual screening 7 5-15 [facility] XR Wrist - left PA and Later al and Obliqueon 04-21-2023 IMPRESSION: Findings are suggestive of degenerative changes in the first carpometacarpal joint. Appliance Service Technician: IVANA Transcribe Date/Time: Apr 21 2023 8:58A Dictated by : HIGINIO VERDUZCO MD This examination was interpreted and the report reviewed and electronically signed by: HIGINIO VERDUZCO MD on Apr 21 2023 9:04AM [facility] DIVISION OF RADIOLOGY * * *Final [...] soft tissue swelling. DIVISION OF RADIOLOGY Provider, [facility] - 04/21/2023 * * *Final Report* * [...] degenerative changes in the first carpometacarpal joint. Appliance Service Technician: IVANA Transcribe Date/Time: Apr 21 2023 8:58A Dictated by : HIGINIO VERDUZCO MD This examination was interpreted and the report reviewed and electronically signed by: HIGINIO VERDUZCO MD on Apr 21 2023 9:04AM EST [facility] Radiology Study observation (narrative) Kathy haley [facility] XR Wrist - left PA and Later al and ObliqueOrdered By: [facility] Provider on 04-21-2023 [facility] MG Breast Screeningon 2022 IMPRESSION: BENIGN FINDING There is no mammographic evidence of malignancy. A 1 year screening mammogram is recommended. Apolonia Wilks M.D., mc/augustine:04/04/2023 09:25:02 [employer]esspool Cleaner(s): RT Iggy(R)(M), [facility] letter sent: Normal over 40 Mammogram BI-RADS: [...] Health, Family Medicine, and Medical/Surgical Oncology, the [facility] has carefully reviewed the data and reached [...] their providers when to stop screening mammograms. Appliance Service Technician: Augustine Transcribe Date/Time: Apr 03 2023 12:41P Dictated by: APOLONIA WILKS MD This examination was interpreted and the report reviewed and electronically signed by: APOLONIA WILKS MD on Apr 04 2023 9:25AM EST DIVISION OF RADIOLOGY * * *Final Report* * * DATE OF EXAM: Apr 03 2023 1:30PM [facility] 0581 - [facility] SCREENING / PROCEDURE REASON: Encounter for screening mammogram for malignant neoplasm of breast * * * * Physician Interpretation * * * * RESULT: #[id number] - KAJAL SCREENING BILATERAL DIGITAL SCREENING MAMMOGRAM [...] made to exam dated: 03/25/2022 mammogram - [facility]. There are scattered areas of fibroglandular density. There are benign vascular calcifications in both breasts. No significant masses, calcifications, or other findings are seen in either breast. There has been no significant interval change. DIVISION OF RADIOLOGY Provider, [facility] - 04/04/2023 * * *Final Report* * * DATE OF EXAM: Apr 03 2023 1:30PM [facility] 05[facility] - [facility] SCREENING / PROCEDURE REASON: Encounter for screening mammogram for malignant neoplasm of breast * * * * Physician Interpretation * * * * RESULT: #[id number] - KAJAL SCREENING BILATERAL DIGITAL SCREENING MAMMOGRAM [...] made to exam dated: 03/25/2022 mammogram - [facility]. There are scattered areas of fibroglandular density. There are benign vascular calcifications in both breasts. No significant masses, calcifications, or other findings are seen in either breast. There has been no significant interval change. IMPRESSION IMPRESSION: BENIGN FINDING There is no mammographic evidence of malignancy. A 1 year screening mammogram is recommended. Apolonia Wilks M.D., mc/augustine:04/04/2023 09:25:02 Cesspool Cleaner(s): RT Iggy(Alicia)(M), [facility] letter sent: Normal over 40 Mammogram BI-RADS: [...] Health, Family Medicine, and Medical/Surgical Oncology, the [facility] has carefully reviewed the data and reached [...] their providers when to stop screening mammograms. Appliance Service Technician: Augustine Transcribe Date/Time: Apr 03 2023 12:41P Dictated by: APOLONIA WILKS MD This examination was interpreted and the report reviewed and electronically signed by: APOLONIA WILKS MD on Apr 04 2023 9:25AM EST [facility] MG Breast ScreeningOrdered B y: [facility] Provider on 04-04-2023 [facility] MG Breast Screeningon 2022 Radiology Study observation (narrative) [facility] Basophil percentageOrdered B y: Matti Camarillo on 02-28-2023 Bilirubin [Mass/Vol] 0.50 mg/dL 0.20-1.00 [facility] Comment on above: For patients on eltr ombopag therapy, use of Dimension [place] TBIL is not recommended. Chloride [Moles/Vol] 103 mmol/L 98-107 [facility] Glucose [Mass/Vol] 99 mg/dL 74-106 [facility] Potassium [Moles/Vol] 4.3 mmol/L 3.5-5.1 [facility] Protein [Mass/Vol] 7.5 g/dL 6.4-8.2 [facility] Sodium [Moles/Vol] 138 mmol/L 136-145 [facility] Laboratory - Chemistry and C hemistry - challengeOrdered By: Matti Camarillo on 02-28-2023 ALP [Catalytic activity/Vol] 65 U/L 45-117 [facility] ALT [Catalytic activity/Vol] 27 U/L 13-56 [facility] CO2 [Moles/Vol] 30.0 mmol/L 21.0-32.0 [facility] Globulin (S) [Mass/Vol] 3.7 g/dL 2.2-4.2 [facility] Urea nitrogen/Creatinine [Mass ratio] 17.7 mg/mg 10-20 [facility] No Panel InformationOrdered By: Matti Camarillo on 02-28-2023 Estimated GFR (MDRD) Amer 83 mL/min >60 [facility] Comment on above: GFR Calc Estimated GFR (MDRD) Non-Af Amer 69 mL/min >60 [facility] Comment on above: Non- GFR Calc Thyroid Stimulating Hormone (TSH) 2.64 uIU/mL 0.358-3.74 [facility] Serum or plasma albumin deo urement (mass/volume)Ordered By: Matti Camarillo on 02-28-2023 Albumin [Mass/Vol] 3.8 g/dL 3.2-5.0 [facility] Serum or plasma albumin/glob ulin mass ratioOrdered By: Mattiandrew Camarillo on 02-28-2023 Albumin/Globulin [Mass ratio] 1.0 {ratio} 0.9-2.4 [facility] Serum or plasma calcium deo urement (mass/volume)Ordered By: Matti Camarillo on 02-28-2023 Calcium [Mass/Vol] 9.2 mg/dL 8.5-10.1 [facility] Serum or plasma creatinine m easurement (mass/volume)Ordered By: Matti Camarillo on 02-28-2023 Creatinine [Mass/Vol] 0.85 mg/dL 0.55-1.02 [facility] Comment on above: The validity of the calculated GFR & GFRAA in patients over 70 years has not been determined. Clinical correlation is essential. Serum or plasma urea nitroge n measurement (mass/volume)Ordered By: Matti Camarillo on 02-28-2023 Urea nitrogen [Mass/Vol] 15 mg/dL 7-18 [facility] Thin prep Papanicolaou smear with manual screeningOrdered By: Matti Camarillo on 02-28-2023 Thin prep Papanicolaou smear with manual screening 18 U/L 15-37 [facility] Thin prep Papanicolaou smear with manual screening 5 5-15 [facility] Absolute lymphocyte countOrd ered By: Ileana Beltrán on 12-23-2022 Lymphocytes Auto (Unsp spec) [#/Vol] 3.12 10*3/uL 0.83-4.51 [facility] Basophil percentageOrdered B y: Ileana Beltrán on 12-23-2022 Basophils/100 WBC (Bld) 0.8 % 0-1 [facility] Chloride [Moles/Vol] 105 mmol/L 98-107 [facility] Eosinophils/100 WBC (Bld) 1.7 % 0-5 [facility] Glucose [Mass/Vol] 91 mg/dL 74-106 [facility] Neutrophils (Bld) [#/Vol] 3.9 10*3/uL 2.0-7.7 [facility] Neutrophils/100 WBC (Bld) 49.8 % 47-70 [facility] Potassium [Moles/Vol] 4.6 mmol/L 3.5-5.1 [facility] Sodium [Moles/Vol] 139 mmol/L 136-145 [facility] WBC (Bld) [#/Vol] 7.8 10*3/uL 4.4-11.0 [facility] Blood erythrocytes count (nu mber/volume)Ordered By: Ileana Beltrán on 12-23-2022 RBC (Bld) [#/Vol] 4.55 10*6/uL 4.2-5.4 [facility] Blood hemoglobin measurement (mass/volume)Ordered By: Ileana Beltrán on 12-23-2022 Hemoglobin (Bld) [Mass/Vol] 14.0 g/dL 12.0-15.0 [facility] Blood lymphocytes/100 leukoc ytesOrdered By: Ileana Beltrán on 12-23-2022 Lymphocytes/100 WBC (Bld) 40.1 % 19-41 [facility] Blood monocytes/100 leukocyt esOrdered By: Ileana Beltrán on 12-23-2022 Monocytes/100 WBC (Bld) 7.2 % 0-10 [facility] Blood platelet mean volumeOr dered By: Ileana Beltrán on 12-23-2022 Platelet mean volume (Bld) [Entitic vol] 10.8 fL 6.2-12.0 [facility] Determination of erythrocyte mean corpuscular volume (MCV)Ordered By: Ileana Beltrán on 12-23-2022 MCV (RBC) [Entitic vol] 95.4 fL 81-99 [facility] Hematocrit Auto (Bld) [Volum e fraction]Ordered By: Ileana Beltrán on 12-23-2022 Hematocrit (Bld) [Volume fraction] 43.4 % 37-47 [facility] Laboratory - Chemistry and C hemistry - challengeOrdered By: Ileana Beltrán on 12-23-2022 CO2 [Moles/Vol] 28.0 mmol/L 21.0-32.0 [facility] Urea nitrogen/Creatinine [Mass ratio] 15.6 mg/mg 10-20 [facility] Laboratory - Hematology and Cell countsOrdered By: Ileana Beltrán on 12-23-2022 Erythrocyte distribution width (RBC) [Entitic vol] 45.0 fL 35.1-43.9 [facility] Erythrocyte distribution width (RBC) [Ratio] 12.9 % 11.6-14.6 [facility] Immature granulocytes/100 WBC (Bld) 0.400 % 0.0-0.9 [facility] Comment on above: IG% - Immature Granu locytes (promyelocytes, myelocytes and metamyelocytes) > 1% indicates that a LEFT SHIFT is Present. MCH (RBC) [Entitic mass] 30.8 pg 27.0-32.0 [facility] Nucleated RBC/100 WBC (Bld) [Ratio] 0 % 0-5 [facility] MCHC Auto (RBC) [Mass/Vol]Or dered By: Ileana Beltrán on 12-23-2022 MCHC (RBC) [Mass/Vol] 32.3 g/dL 32-36 [facility] No Panel InformationOrdered By: Ileana Beltrán on 12-23-2022 Estimated GFR (MDRD) Amer 85 mL/min >60 [facility] Comment on above: GFR Calc Estimated GFR (MDRD) Non-Af Amer 70 mL/min >60 [facility] Comment on above: Non- GFR Calc No Panel InformationOrdered By: ELZBIETASHYAM KNOX on 12-23-2022 Thyroid Stimulating Hormone (TSH) 5.94 uIU/mL 0.358-3.74 [facility] Platelets bldOrdered By: Neto niels Leigh Ann on 12-23-2022 Platelets (Bld) [#/Vol] 219 10*3/uL 150-450 [facility] Serum or plasma calcium deo urement (mass/volume)Ordered By: Ileana Beltrán on 12-23-2022 Calcium [Mass/Vol] 9.3 mg/dL 8.5-10.1 [facility] Serum or plasma creatinine m easurement (mass/volume)Ordered By: Ileana Beltrán on 12-23-2022 Creatinine [Mass/Vol] 0.84 mg/dL 0.55-1.02 [facility] Comment on above: The validity of the calculated GFR & GFRAA in patients over 70 years has not been determined. Clinical correlation is essential. Serum or plasma urea nitroge n measurement (mass/volume)Ordered By: Ileana Beltrán on 12-23-2022 Urea nitrogen [Mass/Vol] 13 mg/dL 7-18 [facility] Thin prep Papanicolaou smear with manual screeningOrdered By: Ileana Beltrán on 12-23-2022 Thin prep Papanicolaou smear with manual screening 6 5-15 [facility] Basophil percentageOrdered B y: Ileana Beltrán on 10-30-2022 Bilirubin [Mass/Vol] 0.60 mg/dL 0.20-1.00 [facility] Comment on above: For patients on eltr ombopag therapy, use of Dimension [place] TBIL is not recommended. Chloride [Moles/Vol] 107 mmol/L 98-107 [facility] Cholesterol [Mass/Vol] 176 mg/dL <200 [facility] Comment on above: <200 mg/dL Desirable 200-240 mg/dL Borderline >240 mg/dL High Risk Glucose [Mass/Vol] 96 mg/dL 74-106 [facility] Potassium [Moles/Vol] 4.4 mmol/L 3.5-5.1 [facility] Protein [Mass/Vol] 7.0 g/dL 6.4-8.2 [facility] Sodium [Moles/Vol] 140 mmol/L 136-145 [facility] Triglyceride [Mass/Vol] 186 mg/dL <199 [facility] Comment on above: The drugs N-Acetylcy steine and Metamizole may falsely depress this assay.Serum Triglycerides Reference Interval Normal <150 mg/dL Borderline high 150 - 199 mg/dL High 200 - 499 mg/dL Very High > or = 500 mg/dL WBC (Bld) [#/Vol] 6.2 10*3/uL 4.4-11.0 [facility] Blood erythrocytes count (nu mber/volume)Ordered By: Ileana Beltrán on 10-30-2022 RBC (Bld) [#/Vol] 4.23 10*6/uL 4.2-5.4 [facility] Blood hemoglobin measurement (mass/volume)Ordered By: Ileana Beltrán on 10-30-2022 Hemoglobin (Bld) [Mass/Vol] 13.2 g/dL 12.0-15.0 [facility] Blood platelet mean volumeOr dered By: Ileana Beltrán on 10-30-2022 Platelet mean volume (Bld) [Entitic vol] 10.8 fL 6.2-12.0 [facility] Determination of erythrocyte mean corpuscular volume (MCV)Ordered By: Ileana Beltrán on 10-30-2022 MCV (RBC) [Entitic vol] 95.5 fL 81-99 [facility] Hematocrit Auto (Bld) [Volum e fraction]Ordered By: Ileana Beltrán on 10-30-2022 Hematocrit (Bld) [Volume fraction] 40.4 % 37-47 [facility] Laboratory - Chemistry and C hemistry - challengeOrdered By: Ilenaa Beltrán on 10-30-2022 ALP [Catalytic activity/Vol] 67 U/L 45-117 [facility] ALT [Catalytic activity/Vol] 29 U/L 13-56 [facility] CO2 [Moles/Vol] 27.0 mmol/L 21.0-32.0 [facility] Globulin (S) [Mass/Vol] 3.6 g/dL 2.2-4.2 [facility] Urea nitrogen/Creatinine [Mass ratio] 10.9 mg/mg 10-20 [facility] Laboratory - Hematology and Cell countsOrdered By: Ileana Beltrán on 10-30-2022 Erythrocyte distribution width (RBC) [Entitic vol] 44.5 fL 35.1-43.9 [facility] Erythrocyte distribution width (RBC) [Ratio] 12.9 % 11.6-14.6 [facility] MCH (RBC) [Entitic mass] 31.2 pg 27.0-32.0 [facility] MCHC Auto (RBC) [Mass/Vol]Or dered By: Ileana Beltrán on 10-30-2022 MCHC (RBC) [Mass/Vol] 32.7 g/dL 32-36 [facility] No Panel InformationOrdered By: Ileana Beltrán on 10-30-2022 Estimated GFR (MDRD) Amer 98 mL/min >60 [facility] Comment on above: GFR Calc Estimated GFR (MDRD) Non-Af Amer 81 mL/min >60 [facility] Comment on above: Non- GFR Calc Thyroid Stimulating Hormone (TSH) 0.14 uIU/mL 0.358-3.74 [facility] Platelets bldOrdered By: Neto Beltrán on 10-30-2022 Platelets (Bld) [#/Vol] 216 10*3/uL 150-450 [facility] Serum or plasma albumin deo urement (mass/volume)Ordered By: Ileana Beltrán on 10-30-2022 Albumin [Mass/Vol] 3.4 g/dL 3.2-5.0 [facility] Serum or plasma albumin/glob ulin mass ratioOrdered By: Ileana Beltrán on 10-30-2022 Albumin/Globulin [Mass ratio] 0.9 {ratio} 0.9-2.4 [facility] Serum or plasma calcium deo urement (mass/volume)Ordered By: Ileana Beltrán on 10-30-2022 Calcium [Mass/Vol] 8.9 mg/dL 8.5-10.1 [facility] Serum or plasma cholesterol in HDL measurement (mass/volume)Ordered By: Ileana Beltrán on 10-30-2022 Cholesterol in HDL [Mass/Vol] 46 mg/dL >40 [facility] Comment on above: The drugs N-Acetylcy steine and Metamizole may falsely depress this assay. Reference Range HDL <40 mg/dL Low HDL Cholesterol HDL >or= 60 mg/dL High HDL Cholesterol Serum or plasma cholesterol in VLDL measurement (mass/volume)Ordered By: Ileana Beltrán on 10-30-2022 Cholesterol in VLDL [Mass/Vol] 37 mg/dL 5-40 [facility] Serum or plasma creatinine m easurement (mass/volume)Ordered By: Ileana Beltrán on 10-30-2022 Creatinine [Mass/Vol] 0.74 mg/dL 0.55-1.02 [facility] Comment on above: The validity of the calculated GFR & GFRAA in patients over 70 years has not been determined. Clinical correlation is essential. Serum or plasma low density lipoprotein (LDL) cholesterol measurement (mass/volume)Ordered By: Ileana Beltrán on 10-30-2022 Cholesterol in LDL [Mass/Vol] 93 mg/dL 0-130 [facility] Serum or plasma urea nitroge n measurement (mass/volume)Ordered By: Ileana Beltrán on 10-30-2022 Urea nitrogen [Mass/Vol] 8 mg/dL 7-18 [facility] Thin prep Papanicolaou smear with manual screeningOrdered By: Ileana Beltrán on 10-30-2022 Thin prep Papanicolaou smear with manual screening 20 U/L 15-37 [facility] Thin prep Papanicolaou smear with manual screening 6 5-15 [facility] Basophil percentageOrdered B y: ELZBIETA ABILIO on 04-24-2022 Bilirubin [Mass/Vol] 0.50 mg/dL 0.20-1.00 [facility] Comment on above: For patients on eltr ombopag therapy, use of Dimension [place] TBIL is not recommended. Chloride [Moles/Vol] 105 mmol/L 98-107 [facility] Cholesterol [Mass/Vol] 223 mg/dL <200 [facility] Comment on above: <200 mg/dL Desirable 200-240 mg/dL Borderline >240 mg/dL High Risk Glucose [Mass/Vol] 97 mg/dL 74-106 [facility] Potassium [Moles/Vol] 3.9 mmol/L 3.5-5.1 [facility] Protein [Mass/Vol] 7.4 g/dL 6.4-8.2 [facility] Sodium [Moles/Vol] 140 mmol/L 136-145 [facility] Triglyceride [Mass/Vol] 240 mg/dL <199 [facility] Comment on above: The drugs N-Acetylcy steine and Metamizole may falsely depress this assay.Serum Triglycerides Reference Interval Normal <150 mg/dL Borderline high 150 - 199 mg/dL High 200 - 499 mg/dL Very High > or = 500 mg/dL Laboratory - Chemistry and C hemistry - challengeOrdered By: ELZBIETA KNOX on 04-24-2022 ALP [Catalytic activity/Vol] 70 U/L 45-117 [facility] ALT [Catalytic activity/Vol] 31 U/L 13-56 [facility] CO2 [Moles/Vol] 26.0 mmol/L 21.0-32.0 [facility] Globulin (S) [Mass/Vol] 3.7 g/dL 2.2-4.2 [facility] Urea nitrogen/Creatinine [Mass ratio] 15.7 mg/mg 10-20 [facility] No Panel InformationOrdered By: ELZBIETA KNOX on 04-24-2022 Estimated GFR (MDRD) Amer 116 mL/min >60 [facility] Comment on above: GFR Calc Estimated GFR (MDRD) Non-Af Amer 96 mL/min >60 [facility] Comment on above: Non- GFR Calc Thyroid Stimulating Hormone (TSH) 0.50 uIU/mL 0.358-3.74 [facility] Vitamin D 25-Hydroxy 58.6 ng/mL [facility] Comment on above: Vitamin D 25(OH) Sta tus Range Deficiency <20 ng/mL (50nmol/L) Insufficiency 20 - 30 ng/mL (50 - 75 nmol/L) Sufficiency 30 - 100 ng/mL (75 - 250 nmol/L) Toxicity >100 ng/mL (>250 nmol/L) Serum or plasma albumin deo urement (mass/volume)Ordered By: ELZBIETA KNOX on 04-24-2022 Albumin [Mass/Vol] 3.7 g/dL 3.2-5.0 [facility] Serum or plasma albumin/glob ulin mass ratioOrdered By: ELZBIETA KNOX on 04-24-2022 Albumin/Globulin [Mass ratio] 1.0 {ratio} 0.9-2.4 [facility] Serum or plasma calcium deo urement (mass/volume)Ordered By: ELZBIETA KNOX on 04-24-2022 Calcium [Mass/Vol] 9.0 mg/dL 8.5-10.1 [facility] Serum or plasma cholesterol in HDL measurement (mass/volume)Ordered By: ELZBIETA KNOX on 04-24-2022 Cholesterol in HDL [Mass/Vol] 50 mg/dL >40 [facility] Comment on above: The drugs N-Acetylcy steine and Metamizole may falsely depress this assay. Reference Range HDL <40 mg/dL Low HDL Cholesterol HDL >or= 60 mg/dL High HDL Cholesterol Serum or plasma cholesterol in VLDL measurement (mass/volume)Ordered By: ELZBIETA KNOX on 04-24-2022 Cholesterol in VLDL [Mass/Vol] 48 mg/dL 5-40 [facility] Serum or plasma creatinine m easurement (mass/volume)Ordered By: ELZBIETA KNOX on 04-24-2022 Creatinine [Mass/Vol] 0.64 mg/dL 0.55-1.02 [facility] Comment on above: The validity of the calculated GFR & GFRAA in patients over 70 years has not been determined. Clinical correlation is essential. Serum or plasma low density lipoprotein (LDL) cholesterol measurement (mass/volume)Ordered By: ELZBIETA KNOX on 04-24-2022 Cholesterol in LDL [Mass/Vol] 125 mg/dL 0-130 [facility] Serum or plasma urea nitroge n measurement (mass/volume)Ordered By: ELZBIETA KNOX on 04-24-2022 Urea nitrogen [Mass/Vol] 10 mg/dL 7-18 [facility] Thin prep Papanicolaou smear with manual screeningOrdered By: ELZBIETA KNOX on 04-24-2022 Thin prep Papanicolaou smear with manual screening 20 U/L 15-37 [facility] Thin prep Papanicolaou smear with manual screening 9 5-15 [facility] Absolute lymphocyte countOrd ered By: Dr. Díaz on 04-22-2022 Lymphocytes Auto (Unsp spec) [#/Vol] 2.46 10*3/uL 0.83-4.51 [facility] Basophil percentageOrdered B y: Dr. Díaz on 04-22-2022 Basophils/100 WBC (Bld) 0.6 % 0-1 [facility] Eosinophils/100 WBC (Bld) 1.0 % 0-5 [facility] Neutrophils (Bld) [#/Vol] 4.9 10*3/uL 2.0-7.7 [facility] Neutrophils/100 WBC (Bld) 61.2 % 47-70 [facility] WBC (Bld) [#/Vol] 8.1 10*3/uL 4.4-11.0 [facility] Blood erythrocytes count (nu mber/volume)Ordered By: Dr. Díaz on 04-22-2022 RBC (Bld) [#/Vol] 4.86 10*6/uL 4.2-5.4 [facility] Blood hemoglobin measurement (mass/volume)Ordered By: Dr. Díaz on 04-22-2022 Hemoglobin (Bld) [Mass/Vol] 14.0 g/dL 12.0-15.0 [facility] Blood lymphocytes/100 leukoc ytesOrdered By: Dr. Díaz on 04-22-2022 Lymphocytes/100 WBC (Bld) 30.4 % 19-41 [facility] Blood monocytes/100 leukocyt esOrdered By: Dr. Díaz on 04-22-2022 Monocytes/100 WBC (Bld) 6.6 % 0-10 [facility] Blood platelet mean volumeOr dered By: Dr. Díaz on 04-22-2022 Platelet mean volume (Bld) [Entitic vol] 11.6 fL 6.2-12.0 [facility] Determination of erythrocyte mean corpuscular volume (MCV)Ordered By: Dr. Díaz on 04-22-2022 MCV (RBC) [Entitic vol] 88.7 fL 81-99 [facility] Hematocrit Auto (Bld) [Volum e fraction]Ordered By: Dr. Díaz on 04-22-2022 Hematocrit (Bld) [Volume fraction] 43.1 % 37-47 [facility] Iron measurement (mass/mass) Ordered By: Dr. Díaz on 04-22-2022 Iron (Unsp spec) [Mass/Mass] 82 ug/dL 50-170 [facility] Laboratory - Hematology and Cell countsOrdered By: Dr. Díaz on 04-22-2022 Erythrocyte distribution width (RBC) [Entitic vol] 52.8 fL 35.1-43.9 [facility] Erythrocyte distribution width (RBC) [Ratio] 16.1 % 11.6-14.6 [facility] Immature granulocytes/100 WBC (Bld) 0.200 % 0.0-0.9 [facility] Comment on above: IG% - Immature Granu locytes (promyelocytes, myelocytes and metamyelocytes) > 1% indicates that a LEFT SHIFT is Present. MCH (RBC) [Entitic mass] 28.8 pg 27.0-32.0 [facility] Nucleated RBC/100 WBC (Bld) [Ratio] 0 % 0-5 [facility] [facility]C Auto (RBC) [Mass/Vol]Or dered By: Dr. Díaz on 04-22-2022 MCHC (RBC) [Mass/Vol] 32.5 g/dL 32-36 [facility] Platelets bldOrdered By: Dr. Díaz on 04-22-2022 Platelets (Bld) [#/Vol] 265 10*3/uL 150-450 [facility] Serum or plasma ferritin olivia surement (mass/volume)Ordered By: Dr. Díaz on 04-22-2022 Ferritin [Mass/Vol] 28 ng/mL 8-252 [facility] CNOVon 03-27-2022 CNOV Office Visit (UROLAE) FABRICE MOON ([id number]) 1945 F T Date Time Provider Department [...] (primary encounter diagnosis) Referring Provider: MICAH DÍAZ [[id number]] Allergies As of Date: 03/27/2022 Noted Allergy [...] [N39.41] Order(s):so (more content not included)... Normal [facility] KAJAL SCREENINGon 03-25-2022 [facility] CNPNon 02-07-2022 CNPN Telephone (AKURFL) FABRICE MOON ([id number]) 1945 F CHT Date Time Provider Department 02/07/22 ROXANE PINEDA During your visit today, we recorded the following information about you: Yesenia Herrera [facility] 02/07/2022 8:27 AM Signed Patient states she [...] decline MAXIMINO appointment due to living in [place], and has no transportation Yesenia Pineda MD 02/07/2022 11:20 AM Signed Would she like to do a virtual visit with Elzbieta to discuss next steps? Shayy Hadley [facility] 02/07/2022 11:26 AM Signed Pt does not [...] NEC/NOS [E78.5] 07/22/2003 MYALGIA AND MYOSITIS NOS [[id number]] 07/22/2003 LUMBOSACRAL NEURITIS NOS [[id number]] 07/27/2003 POSTLAMINECT SYND-LUMBAR [M96.1] 07/27/2003 ABDOMINAL PAIN [...] by ROXANE PINEDA on 02/07/22 [facility] Absolute lymphocyte countOrd ered By: Dr. Díaz on 01-18-2022 Lymphocytes Auto (Unsp spec) [#/Vol] 2.13 10*3/uL 0.83-4.51 [facility] Basophil percentageOrdered B y: Dr. Díaz on 01-18-2022 Basophils/100 WBC (Bld) 0.6 % 0-1 [facility] Eosinophils/100 WBC (Bld) 2.6 % 0-5 [facility] Neutrophils (Bld) [#/Vol] 3.3 10*3/uL 2.0-7.7 [facility] Neutrophils/100 WBC (Bld) 53.9 % 47-70 [facility] WBC (Bld) [#/Vol] 6.2 10*3/uL 4.4-11.0 [facility] Blood erythrocytes count (nu mber/volume)Ordered By: Dr. Díaz on 01-18-2022 RBC (Bld) [#/Vol] 3.93 10*6/uL 4.2-5.4 [facility] Blood hemoglobin measurement (mass/volume)Ordered By: Dr. Díaz on 01-18-2022 Hemoglobin (Bld) [Mass/Vol] 10.5 g/dL 12.0-15.0 [facility] Blood lymphocytes/100 leukoc ytesOrdered By: Dr. Díaz on 01-18-2022 Lymphocytes/100 WBC (Bld) 34.5 % 19-41 [facility] Blood monocytes/100 leukocyt esOrdered By: Dr. Díaz on 01-18-2022 Monocytes/100 WBC (Bld) 8.1 % 0-10 [facility] Blood platelet mean volumeOr dered By: Dr. Díaz on 01-18-2022 Platelet mean volume (Bld) [Entitic vol] 11.3 fL 6.2-12.0 [facility] Determination of erythrocyte mean corpuscular volume (MCV)Ordered By: Dr. Díaz on 01-18-2022 MCV (RBC) [Entitic vol] 85.2 fL 81-99 [facility] Hematocrit Auto (Bld) [Volum e fraction]Ordered By: Dr. Díaz on 01-18-2022 Hematocrit (Bld) [Volume fraction] 33.5 % 37-47 [facility] Iron measurement (mass/mass) Ordered By: Dr. Díaz on 01-18-2022 Iron (Unsp spec) [Mass/Mass] 37 ug/dL 50-170 [facility] Laboratory - Hematology and Cell countsOrdered By: Dr. Díaz on 01-18-2022 Erythrocyte distribution width (RBC) [Entitic vol] 46.8 fL 35.1-43.9 [facility] Erythrocyte distribution width (RBC) [Ratio] 14.9 % 11.6-14.6 [facility] Immature granulocytes/100 WBC (Bld) 0.300 % 0.0-0.9 [facility] Comment on above: IG% - Immature Granu locytes (promyelocytes, myelocytes and metamyelocytes) > 1% indicates that a LEFT SHIFT is Present. MCH (RBC) [Entitic mass] 26.7 pg 27.0-32.0 [facility] Nucleated RBC/100 WBC (Bld) [Ratio] 0 % 0-5 [facility] MCHC Auto (RBC) [Mass/Vol]Or dered By: Dr. Díaz on 01-18-2022 MCHC (RBC) [Mass/Vol] 31.3 g/dL 32-36 [facility] No Panel InformationOrdered By: Dr. Díaz on 01-18-2022 Total Iron Binding Capacity 555 ug/dL 250-450 [facility] Platelets bldOrdered By: Dr. Díaz on 01-18-2022 Platelets (Bld) [#/Vol] 289 10*3/uL 150-450 [facility] Serum or plasma ferritin olivia surement (mass/volume)Ordered By: Dr. Díaz on 01-18-2022 Ferritin [Mass/Vol] 9 ng/mL 8-252 [facility] Serum or plasma folate measu rement (mass/volume)Ordered By: Dr. Díaz on 01-18-2022 Folate [Mass/Vol] 21.70 ng/mL 3.1-55.4 [facility] Serum or plasma iron saturat ion measurement (mass fraction)Ordered By: Dr. Díaz on 01-18-2022 Iron saturation [Mass fraction] 6.7 % 15.0-55.0 [facility] CNPNon 01-07-2022 CNPN Telephone ([place] [place]) FABRICE MOON ([id number]) 1945 F CHT Date Time Provider Department 01/07/22 ROXANE PINEDA During your visit today, we recorded the following information about you: Ashleigh Borja Seismograph Supervisor 01/07/2022 4:10 PM Signed Pt called asking if we could resend the Trospium 60mg rx to her pharmacy I tried calling but the phone number wasn't working re pendedt he rx. Ashleigh Borja Seismograph Supervisor Allergies As of Date: 01/07/2022 Noted Allergy Reaction AMITRIPTYLINE 07/22/2003 2 - Rash ELAVIL (AMITRIPTYLINE HCL) 01/28/2006 5 - Intolerance Comments: Has taken with no reaction NAPROXYN (NAPROXEN) 12/13/2005 OXYBUTYNIN 07/24/2021 7 - Swelling TRAMADOL 12/13/2005 VALDECOXIB 07/22/2003 2 - Rash Date Reviewed: 12/26/2021 Reviewed by: Citlali Phelan CT - Fully Assessed Reason for Visit: resending rx [Other] Order(s):Trospium (SANCTURA SR) 60 mg sm19Tvue 1 capsule by mouth once daily.Disp: 30 [...] NEC/NOS [E78.5] 07/22/2003 MYALGIA AND MYOSITIS NOS [[id number]] 07/22/2003 LUMBOSACRAL NEURITIS NOS [[id number]] 07/27/2003 POSTLAMINECT SYND-LUMBAR [M96.1] 07/27/2003 ABDOMINAL PAIN [...] ASHLEIGH BORJA CMA on 01/09/22 [facility] CNPKeturah 01-01-2022 CNPN Telephone (AKURFL) FABRICE MOON ([id number]) 1945 F [facility] Date Time Provider Department 01/01/22 ROXANE [...] urination [R39.15] Order(s):Trospium (SANCTURA SR) 60 mg gb29Dqoc 1 capsule by mouth once daily.Disp: 30 [...] NEC/NOS [E78.5] 07/22/2003 MYALGIA AND MYOSITIS NOS [[id number]] 07/22/2003 LUMBOSACRAL NEURITIS NOS [[id number]] 07/27/2003 POSTLAMINECT SYND-LUMBAR [M96.1] 07/27/2003 ABDOMINAL PAIN [...] During This (more content not included)... Normal [facility] CNOVon 12-26-2021 CNOV Office Visit (UROLAE) FABRICE MOON ([id number]) 1945 F [facility] Date Time Provider Department 12/26/21 3:00 PM ROXANE PINEDA During your visit today, we recorded the following information about you: Blood pressure Weight Height 140/80 90.3 kg 1.702 m Roxane Pineda MD 12/26/2021 3:43 PM Signed ESTABLISHED PATIENT VISIT HPI Fabrice Jennifer oMon is a 76 year old female [...] (primary encounte (more content not included)... [facility]) FABRICE MOON ([id number]) 1945 F T Date Time Provider Department [...] Fully Assessed Reason for Visit: Patient Question [3407] Prescriptions as of 12/18/2021 - tolterodine ER [...] NEC/NOS [E78.5] 07/22/2003 MYALGIA AND MYOSITIS NOS [[id number]] 07/22/2003 LUMBOSACRAL NEURITIS NOS [[id number]] 07/27/2003 POSTLAMINECT SYND-LUMBAR [M96.1] 07/27/2003 ABDOMINAL PAIN [...] AUSTIN MITCHELL MA on 12/18/21 [facility] ALLIED HEALTHon 12-10-2021 ALLIED HEALTH HNO ID: [id number] Author: Chaplain Deborah Service: Spiritual Care Author Type: Urology Physician Assistant Type: Allied Health Filed: 12/10/2021 11:27 AM Note Text: SPIRITUAL CARE PROGRESS NOTE SERVICE DATE: 12/10/2021 SERVICE TIME: 9:04am Urology Physician Assistant supported patient and niece before surgery; patient expressed anxiety and director medical science normalized feelings. Urology Physician Assistant also prayed and they were very grateful for support To contact the Spiritual Care Department: Please call . SIGNATURE: Chaplain Deborah PATIENT NAME: Fabrice Moon DATE: December 10, 2021 TIME: 11:26 AM PAGER/CONTACT #: [phone] [facility] ANES POSTPROC EVALon 022 ANES POSTPROC EVAL HNO ID: [id number] Author: dEwar Dumas MD Service: Anesthesiology Author Type: Physician Type: Anesthesia Postprocedure Evaluation Filed: 12/10/2021 9:44 PM Note Text: POST ANESTHESIA EVALUATION NOTE : 1945 Procedure Summary Date: 12/10/21 Room / Location: [place] OR 04 / [place] Anesthesia Start: [...] December 10, 2021 TIME: 9:44 PM CSN: [id number] [facility] ANES PRE-OPon 12-10-2021 ANES PRE-OP HNO ID: [id number] Author: Hector Copeland MD Service: ? Author Type: Anesthesiologist Type: Anesthesia Preprocedure Evaluation Filed: 12/10/2021 11:45 AM Note Text: ANESTHESIOLOGY DAY OF SURGERY NOTE : 1945 Procedure Information Date/Time: 12/10/21 1200 Procedures: XI ROBOTIC LAPAROSCOPIC COLPOPEXY (Abdomen) POSTERIOR COLPORRHAPHY W/ REPAIR RECTOCELE AND PERINEORRHAPHY (Vagina ) SLING SURGERY FOR STRESS INCONTINENCE W/ TENSION FREE VAG TAPE (Bladder) CYSTOSCOPY (Bladder) Location: [place] / [place] Surgeons: Roxane Pineda MD Estimated body mass index is 30.38 kg/m? as calculated from the following: Height as of 09/26/21: 170.2 cm (5' 7). Weight as of 09/26/21: 88 kg (194 lb). Most recent hematocrit and potassium results: Hematocrit 26.2 10/28/2010 Potassium 4.5 10/28/2010 Relevant Problems CARDIO (+) Hypertension ENDO (+) HYPOTHYROIDISM Cardiovascular (+) Status post aortic valve replacement NEWS INTERN (+) Vaginal enterocele 76 y/o F with a history of HTN, s/p AVR in 2010, hypothyroidism, who presents for robotic colpopexy. Mets > 5. Denies exertional chest pain, dyspnea, lightheadedness. Follows routinely with wound nurse in [place]. No major changes since AVR in 2010. [...] and consent discussed: yes. Patient / Responsible Libertarian agrees to proceed: yes Patient / Surrogate [...] have interview (more content not included)... Normal [facility] HISTORY PHYSICALon HISTORY PHYSICAL HNO ID: [id number] Author: Roxane Pineda MD Service: Urology Author Type: Physician Type: Operative Report Filed: 12/10/2021 6:33 PM Note Text: UROLOGY SERVICE OPERATIVE NOTE LOG ID: [id number] Surgery/Procedure Date: 12/10/2021 Incision/Procedure Start Time: 2:46 PM Incision Close/Procedure End Time: 6:01 PM Patient Age: [age] year old Surgeon(s)/Procedura list(s) and Molecular Physicist(s): Surgeon(s) and Role: * Roxane Pineda MD - Primary * Siva Sutton MD - Resident - Assisting Beverage Server: Manolo Alegre SA Beverage Server (Relief): Jamal Santizo SA Anesthesia: General Preop [...] and functioning. A timeout was performed. The Rtoh catheter was placed gloves were changed attention [...] closed wi (more content not included)... Normal [facility] NURSING PROGon 12-10-2021 NURSING PROG HNO ID: [id number] Author: Ileana Sanchez RN Service: Nursing Author Type: Registered Nurse Type: Nursing Progress Note Filed: 12/10/2021 9:40 PM Note Text: 2100 - Instilled 200cc into bladder, ambulated to bathroom. Voided 100cc blood tinged urine. Back to bed, bladder scanned for approximately 120cc. Paged and informed Petra (uro resident); pt ok to go home. Normal [facility] OPERATIVE NOon 12-10-2021 OPERATIVE NO HNO ID: [id number] Author: Roxane Pineda MD Service: Urology Author Type: Physician Type: Operative Report Filed: 12/10/2021 6:33 PM Note Text: UROLOGY SERVICE OPERATIVE NOTE LOG ID: [id number] Surgery/Procedure Date: 12/10/2021 Incision/Procedure Start Time: 2:46 PM Incision Close/Procedure End Time: 6:01 PM Patient Age: [age] year old Surgeon(s)/Procedura list(s) and Molecular Physicist(s): Surgeon(s) and Role: * Roxane Pineda MD - Primary * Siva Sutton MD - Resident - Assisting Beverage Server: Manolo Alegre SA Beverage Server (Relief): Jamal MedelRuddy Santizo Anesthesia: General Preop Diagnosis: Pre-Op Diagnosis Codes: [...] closed wi (more content not included)... [facility] FABRICE MOON ([id number]) 1945 F T Date Time Provider Department 11/13/21 ROXANE PINEDA [...] Rash Date Reviewed: 09/26/2021 Reviewed by: Roxane iPneda MD - Fully Assessed Reason for Visit: [...] NEC/NOS [E78.5] 07/22/2003 MYALGIA AND MYOSITIS NOS [[id number]] 07/22/2003 LUMBOSACRAL NEURITIS NOS [[id number]] 07/27/2003 POSTLAMINECT SYND-LUMBAR [M96.1] 07/27/2003 ABDOMINAL PAIN EPIGASTRIC [R10.13] ACUTE GASTRITIS W/O HEMORRHAGE [K29.00] Pre-op testing [Z01.818] 10/22/2010 10/24/2010 10/23/10: AVR #23 CE [V999.95] 10/23/2010 HTN (hypertension) [I10] 10/23/2010 10/24/2010 Pain following surgery or procedure [G89.18] 10/23/2010 Hypotension [I95.9] 10/24/2010 Anxiety [F41.9] 10/24/2010 Thrombocytopenia (HCC) [D69.6] 10/25/2010 10/27/2010 Sinus tachycardia [R00.0] 10/28/2010 Vaginal enterocele [N81.5] 12/29/2020 Encounter Status:Closed by ROXANE PINEDA on 11/13/21 [facility] 11-12-2021 [place] Telephone (JENNIFERLAE) FABRICE MOON ([id number]) 1945 F T Date Time Provider Department [...] NEC/NOS [E78.5] 07/22/2003 MYALGIA AND MYOSITIS NOS [[id number]] 07/22/2003 LUMBOSACRAL NEURITIS NOS [[id number]] 07/27/2003 POSTLAMINECT SYND-LUMBAR [M96.1] 07/27/2003 ABDOMINAL PAIN [...] by ROXANE PINEDA on 11/12/21 [facility] CNCPerla 10-16-2021 CNCO Letter Text [facility] CNPKeturah 09-27-2021 CNPN Telephone (AKURFL) FABRICE MOON ([id number]) 1945 F T Date Time Provider Department 09/27/21 ROXANE PINEDA During your visit today, we recorded the following information about you: Natty Marcial Seismograph Supervisor 09/27/2021 10:30 AM Signed Patient healthcare analyst called stated the script for tolterodine that was called in to [facility], Erin stated that Patients account information was needed to help with the script, I have advised healthcare analyst that the script was called in already, Account [facility], id # [id number] Natty Marcial Seismograph Supervisor Allergies As of Date: 09/27/2021 Noted Allergy [...] NEC/NOS [E78.5] 07/22/2003 MYALGIA AND MYOSITIS NOS [[id number]] 07/22/2003 LUMBOSACRAL NEURITIS NOS [[id number]] 07/27/2003 POSTLAMINECT SYND-LUMBAR [M96.1] 07/27/2003 ABDOMINAL PAIN [...] NATTY MARCIAL CMA on 09/27/21 [facility] CNOVon 09-26-2021 CNOV Office Visit (UROLAE) FABRICE MOON ([id number]) 1945 F T Date Time Provider Department 09/26/21 1:45 PM [...] 30.38 kg/m? (more content not included)... Normal [facility] CNOV Office Visit (UROLAE) FABRICE MOON ([id number]) 1945 F [facility] Date Time Provider Department 09/26/21 10:00 AM PROC URODYNAMICS UROLAE During your visit today, we recorded the following information about you: Uri Capone RN 09/26/2021 9:32 AM Signed POST PROCEDURE INSTRUCTIONS Fabrice Moon September 26, 2021 ? Increase your fluid intake. ? FOLLOW UP APPOINTMENT: 09/26/21 at 1:45 pm with Roxane Pineda MD in the [address] [place] [address] office. ? WHEN TO CALL THE DOCTOR: ? If you develop fever (over 101 degrees) or chills. ? If you cannot urinate or empty your bladder. ? If you develop symptoms of a urinary tract infection such as burning or pain with urination, increased frequency of urination or foul smelling urine ? If you have any other questions or problems. Office phone number; [phone] Uri Capone RN 09/26/2021 12:10 PM Addendum Fabrice Moon [id number] 1945 September 26, 2021 Diagnoses: Stress urinary [...] Roxane Pineda MD Referring Provider: MICAH DÍAZ [[id number]] Allergies As of Date: 09/26/2021 Noted Allergy Reaction AMITRIPTYLINE 07/22/2003 2 - Rash ELAVIL (AMITRIPTYLINE HCL) 01/28/2006 5 - Intolerance Comments: Has taken with no reaction NAPROXYN (NAPROXEN) 12/13/2005 OXYBUTYNIN 07/24/2021 7 - Swelling TRAMADOL 12/13/2005 VALDECOXIB 07/22/2003 2 - Rash Date Reviewed: 09/26/2021 Revi (more content not included)... Normal [facility] UA DIP, URINE (POC)on 2021 BILIRUBIN UA (POCT) Negative Negative [facility] CLARITY UA (POCT) Clear [facility] COLOR UA (POCT) Yellow [facility] GLUCOSE UA (POCT) Negative Negative mg/dL [facility] HEMOGLOBIN/BLOOD UA (POCT) Small Abnormal Negative [facility] KETONE UA (POCT) Negative Negative mg/dL [facility] LEUKOCYTES UA (POCT) Small Abnormal Negative [facility] NITRITE UA (POCT) Negative Negative [facility] PH UA (POCT) 5.5 4.5 - 8.0 [facility] Protein Ql (U) Negative Negative mg/dL [facility] SPECIFIC GRAVITY UA (POCT) 1.015 1.005 - 1.030 [facility] UROBILINOGEN UA (POCT) 0.2 E.U./dL Samara l E.U./dL [facility] Basophil percentageon 2021 Bilirubin [Mass/Vol] 0.40 mg/dL 0.20-1.00 [facility] Work Phone: Comment on above: For patients on eltr ombopag therapy, use of Dimension [place] TBIL is not recommended. Chloride [Moles/Vol] 107 mmol/L 98-107 [facility] Work Phone: Glucose [Mass/Vol] 101 mg/dL 74-106 [facility] Work Phone: Comment on above: Fasting Glucose resu lt from 100 to 125 mg/dL suggests IMPAIRED HOMEOSTASIS per A.D.A. criteria. Potassium [Moles/Vol] 4.0 mmol/L 3.5-5.1 [facility] Work Phone: Protein [Mass/Vol] 7.0 g/dL 6.4-8.2 [facility] Work Phone: Sodium [Moles/Vol] 140 mmol/L 136-145 [facility] Work Phone: Laboratory - Chemistry and C hemistry - challengeon 09-18-2021 ALP [Catalytic activity/Vol] 68 U/L 45-117 [facility] Work Phone: ALT [Catalytic activity/Vol] 26 U/L 13-56 [facility] Work Phone: CO2 [Moles/Vol] 27.0 mmol/L 21.0-32.0 [facility] Work Phone: Globulin (S) [Mass/Vol] 3.3 g/dL 2.2-4.2 [facility] Work Phone: Urea nitrogen/Creatinine [Mass ratio] 23.8 mg/mg 10-20 [facility] Work Phone: No Panel Informationon 09-18 Estimated GFR (MDRD) Amer 118 mL/min >60 [facility] Work Phone: Comment on above: GFR Calc Estimated GFR (MDRD) Non-Af Amer 97 mL/min >60 [facility] Work Phone: Comment on above: Non- GFR Calc Thyroid Stimulating Hormone (TSH) 0.86 uIU/mL 0.358-3.74 [facility] Work Phone: Serum or plasma albumin deo urement (mass/volume)on 09-18-2021 Albumin [Mass/Vol] 3.7 g/dL 3.2-5.0 [facility] Work Phone: Serum or plasma albumin/glob ulin mass ratioon 09-18-2021 Albumin/Globulin [Mass ratio] 1.1 {ratio} 0.9-2.4 [facility] Work Phone: Serum or plasma calcium deo urement (mass/volume)on 09-18-2021 Calcium [Mass/Vol] 8.7 mg/dL 8.5-10.1 [facility] Work Phone: Serum or plasma creatinine m easurement (mass/volume)on 09-18-2021 Creatinine [Mass/Vol] 0.63 mg/dL 0.55-1.02 [facility] Work Phone: Comment on above: The validity of the calculated GFR & GFRAA in patients over 70 years has not been determined. Clinical correlation is essential. Serum or plasma urea nitroge n measurement (mass/volume)on 09-18-2021 Urea nitrogen [Mass/Vol] 15 mg/dL 7-18 [facility] Work Phone: Thin prep Papanicolaou smear with manual screeningon 09-18-2021 Thin prep Papanicolaou smear with manual screening 19 U/L 15-37 [facility] Work Phone: Thin prep Papanicolaou smear with manual screening 6 5-15 [facility] Work Phone: CNOVon 07-24-2021 CNOV Office Visit (UROLAE) FABRICE MOON Jennifer ([id number]) 1945 F [facility] Date Time Provider Department 07/24/21 1:15 PM ROXANE PINEDA UROAYSE During your visit today, we recorded the [...] - Diabetes (more content not included)... Normal [facility] Office Visiton 05-21-2016 Protein mass conc Done [employer] Work Phone: Clinical Lists Update: Prelo recreation establishment manager 01-25-2016 Albumin mass conc 3.6 g/dL [employer] Work Phone: Albumin/Globulin mass ratio 1.1 {ratio} [employer] Work Phone: ALP enzyme act/vol (Bld) 73 U/L [employer] Work Phone: ALT enzyme act/vol 45 U/L [facility] Work Phone: [phone] Anion gap molar conc 4 mmol/L Low [facility] Work Phone: [phone] AST enzyme act/vol 29 U/L [facility] Work Phone: [phone] Bilirubin mass conc 0.60 mg/dL [facility] Work Phone: [phone] Calcium mass conc 8.4 mg/dL Low [facility] Work Phone: [phone] Chloride molar conc 105 mmol/L [facility] Work Phone: [phone] Cholesterol in HDL mass conc 44 mg/dL [facility] Work Phone: [phone] Cholesterol in LDL mass conc 149 mg/dL High [facility] Work Phone: [phone] Cholesterol mass conc 228 mg/dL [facility] Work Phone: [phone] CO2 ppres (BldV) 27.0 mmol/L [facility] Work Phone: [phone] Creatinine mass conc 0.65 mg/dL [facility] Work Phone: [phone] Erythrocyte distribution width Ratio (RBC) 12.9 % [facility] Work Phone: [phone] GFR/1.73 sq M predicted among non-blacks MDRD vol rate/area (S/P/Bld) 95 mL/min/{1.73_m2} [facility] Work Phone: [phone] Globulin mass conc (S) 3.4 g/dL [facility] Work Phone: [phone] Glomerular Filtration Rate 115 mL/min/1.73m2 [facility] Work Phone: [phone] Glucose mass conc 95 mg/dL [facility] Work Phone: [phone] Hematocrit Volume Fraction (Bld) 41.6 % [facility] Work Phone: [phone] Hemoglobin mass conc (Bld) 13.8 g/dL [facility] Work Phone: [phone] Lipoprotein.pre-beta mass conc 35 mg/dL [facility] Work Phone: [phone] MCH Entitic mass (RBC) 30.7 pg [facility] Work Phone: [phone] MCHC mass conc (RBC) 33.2 g/dL [facility] Work Phone: [phone] MCV Entitic volume (RBC) 92.7 fL [facility] Work Phone: [phone] Platelet mean volume Entitic volume (Bld) 10.7 fL [facility] Work [phone] Platelets #/vol (Bld) 194 10*3/mm3 [facility] Work Phone: [phone] Potassium molar conc 3.7 mmol/L [facility] Work Phone: [phone] Protein mass conc 7.0 g/dL [facility] Work Phone: [phone] RBC #/vol (Bld) 4.49 10*6/uL [facility] Work Phone: [phone] Sodium molar conc 136 mmol/L [facility] Work Phone: [phone] Thyrotropin Qn 0.87 u[iU]/mL [facility] Work Phone: [phone] Triglyceride mass conc 175 mg/dL [facility] Work Phone: [phone] Urea nitrogen mass conc 9 mg/dL [facility] Work Phone: [phone] Urea nitrogen/Creatinine mass ratio 13.8 mg/mg [facility] Work Phone: [phone] WBC #/vol (Bld) 6.3 10*3/uL [facility] Work Phone: [phone] Office Visiton 07-11-2015 Tobacco smoking status NHIS Never smoker [facility] Work Phone: [phone] Replaced Document: Markmark E CG Observationson 12-08-2014 EKG QRS axis 12 deg [facility] Work Phone: [phone] Interpretation Sinus Bradycardia - occasional ectopic ventricular beat - Nonspecific T-abnormality. ABNORMAL [facility] Work Phone: [phone] P [place] 45 deg [facility] Work Phone: [phone] DC Interval 182 ms [facility] Work Phone: [phone] QRS Duration 94 ms [facility] Work Phone: [phone] QT Interval new path ms [facility] Work Phone: [phone] QTc Madrigal 413 ms [facility] Work Phone: [phone] T [place] 90 deg [facility] Work Phone: [phone] Office Visiton 05-12-2014 cardiac risk group C [facility] Work Phone: [phone] General cardiovascular disease 10Y risk [#] Griffin.D'Agostino N/A [facility] Work Phone: [phone] Clinical Lists Update: Prelo recreation establishment manager 02-10-2013 Glucose fasting mass conc 76 mg/dL [facility] Work Phone: [phone] BLADDER SCAN [facility] Vital Signs Date Time Vital Sign Value Performing [facility] 02-15-2025 15:30-0500 Body temperature 98 [degF] Dr. Micah Díaz DO Work Phone: [facility] 02-15-2025 15:30-0500 Diastolic blood pressure 56 mm[Hg] Dr. Micah Díaz DO Work Phone: [facility] 02-15-2025 15:30-0500 Heart rate 58 /min Dr. Micah Díaz DO Work Phone: [facility] 02-15-2025 15:30-0500 Respiratory rate 18 /min Dr. Micah Díaz DO Work Phone: [facility] 02-15-2025 15:30-0500 SaO2% (BldA) [Mass fraction] 96 % Dr. Micah Díaz DO Work Phone: [facility] 02-15-2025 15:30-0500 Systolic blood pressure 136 mm[Hg] Dr. Micah Díaz DO Work Phone: [facility] 02-13-2025 19:02-0500 Body height 170.[address] Micah Díaz DO Work Phone: [facility] 02-13-2025 19:02-0500 Body mass index (BMI) [Ratio] 28.3 kg/m2 Dr. Micah Díaz DO Work Phone: [facility] 02-13-2025 19:02-0500 Body weight [address] Micah Díaz DO Work Phone: [facility] 02-02-2025 11:12-0400 Body height 165.[address] Micah Díaz DO Work Phone: [facility] 02-02-2025 11:12-0400 Body mass index (BMI) [Ratio] 30.6 kg/m2 Dr. Micah Díaz DO Work Phone: [facility] 02-02-2025 11:12-0400 Body temperature 97.9 [degF] Dr. Micah Díaz DO Work Phone: [facility] 02-02-2025 11:12-0400 Body weight 83.[address] Micah Díaz DO Work Phone: [facility] 02-02-2025 11:12-0400 Diastolic blood pressure 78 mm[Hg] Dr. Micah Díaz DO Work Phone: [facility] 02-02-2025 11:12-0400 Heart rate 70 /min Dr. Micah Díaz DO Work Phone: [facility] 02-02-2025 11:12-0400 Systolic blood pressure 126 mm[Hg] Dr. Micah Díaz DO Work Phone: [facility] 01-26-2025 11:35-0400 Body mass index (BMI) [Ratio] 30.6 kg/m2 Dr. Micah Díaz DO Work Phone: [facility] 01-26-2025 11:35-0400 Body temperature 98.1 [degF] Dr. Micah Díaz DO Work Phone: [facility] 01-26-2025 11:35-0400 Body weight 83.[address] Micah Díaz DO Work Phone: [facility] 01-26-2025 11:35-0400 Diastolic blood pressure 80 mm[Hg] Dr. Micah Díaz DO Work Phone: [facility] 01-26-2025 11:35-0400 Heart rate 70 /min Dr. Micah Díaz DO Work Phone: [facility] 01-26-2025 11:35-0400 Systolic blood pressure 124 mm[Hg] Dr. Micah Díaz DO Work Phone: [facility] 01-20-2025 08:51-0400 Body mass index (BMI) [Ratio] 30.6 kg/m2 Dr. Micah Díaz DO Work Phone: [facility] 01-20-2025 08:51-0400 Body weight 83.[address] Micah Díaz DO Work Phone: [facility] 01-20-2025 08:51-0400 Diastolic blood pressure 71 mm[Hg] Dr. Micah Díaz DO Work Phone: [facility] 01-20-2025 08:51-0400 Heart rate 52 /min Dr. Micah Díaz DO Work Phone: [facility] 01-20-2025 08:51-0400 Respiratory rate 16 /min Dr. Micah Díaz DO Work Phone: [facility] 01-20-2025 08:51-0400 SaO2% (BldA) [Mass fraction] 94 % Dr. Micah Díaz DO Work Phone: [facility] 01-20-2025 08:51-0400 Systolic blood pressure 113 mm[Hg] Dr. Micah Díaz DO Work Phone: [facility] 01-19-2025 12:56-0400 Body height 165.[address] Micah Díaz DO Work Phone: [facility] 01-19-2025 12:56-0400 Body mass index (BMI) [Ratio] 29.6 kg/m2 Dr. Micah Díaz DO Work Phone: [facility] 01-19-2025 12:56-0400 Body temperature 98 [degF] Dr. Micah Díaz DO Work Phone: [facility] 01-19-2025 12:56-0400 Body weight 80.[address] Micah Díaz DO Work Phone: [facility] 01-19-2025 12:56-0400 Diastolic blood pressure 82 mm[Hg] Dr. Micah Díaz DO Work Phone: [facility] 01-19-2025 12:56-0400 Respiratory rate 74 /min Dr. Micah Díaz DO Work Phone: [facility] 01-19-2025 12:56-0400 Systolic blood pressure 124 mm[Hg] Dr. Micah Díaz DO Work Phone: [facility] 01-12-2025 11:32-0400 Body height 165.[address] Micah Díaz DO Work Phone: [facility] 01-12-2025 11:32-0400 Body mass index (BMI) [Ratio] 29.6 kg/m2 Dr. Micah Díaz DO Work Phone: [facility] 01-12-2025 11:32-0400 Body temperature 98.1 [degF] Dr. Micah Díaz DO Work Phone: [facility] 01-12-2025 11:32-0400 Body weight 80.[address] Micah Díaz DO Work Phone: [facility] 01-12-2025 11:32-0400 Diastolic blood pressure 80 mm[Hg] Dr. Micah Díaz DO Work Phone: [facility] 01-12-2025 11:32-0400 Heart rate 74 /min Dr. Micah Díaz DO Work Phone: [facility] 01-12-2025 11:32-0400 Systolic blood pressure 126 mm[Hg] Dr. Micah Díaz DO Work Phone: [facility] 01-05-2025 14:01-0400 Body height 165.[address] Micah Díaz DO Work Phone: [facility] 01-05-2025 14:01-0400 Body mass index (BMI) [Ratio] 29.6 kg/m2 Dr. Micah Díaz DO Work Phone: [facility] 01-05-2025 14:01-0400 Body temperature 97.9 [degF] Dr. Micah Díaz DO Work Phone: [facility] 01-05-2025 14:01-0400 Body weight 80.[address] Micah Díaz DO Work Phone: [facility] 01-05-2025 14:01-0400 Diastolic blood pressure 84 mm[Hg] Dr. Micah Díaz DO Work Phone: [facility] 01-05-2025 14:01-0400 Heart rate 60 /min Dr. Micah Díaz DO Work Phone: [facility] 01-05-2025 14:01-0400 Systolic blood pressure 128 mm[Hg] Dr. Micah Díaz DO Work Phone: [facility] 12-29-2024 11:52-0400 Body height 165.[address] Micah Díaz DO Work Phone: [facility] 12-29-2024 11:52-0400 Body mass index (BMI) [Ratio] 29.6 kg/m2 Dr. Micah Díaz DO Work Phone: [facility] 12-29-2024 11:52-0400 Body temperature 97.9 [degF] Dr. Micah Díaz DO Work Phone: [facility] 12-29-2024 11:52-0400 Body weight 80.[address] Micah Díaz DO Work Phone: [facility] 12-29-2024 11:52-0400 Diastolic blood pressure 78 mm[Hg] Dr. Micah Díaz DO Work Phone: [facility] 12-29-2024 11:52-0400 Heart rate 76 /min Dr. Micah Díaz DO Work Phone: [facility] 12-29-2024 11:52-0400 Systolic blood pressure 124 mm[Hg] Dr. Micah Díaz DO Work Phone: [facility] 12-22-2024 11:30-0400 Body height 165.[address] Micah Díaz DO Work Phone: [facility] 12-22-2024 11:30-0400 Body mass index (BMI) [Ratio] 29.6 kg/m2 Dr. Micah Díaz DO Work Phone: [facility] 12-22-2024 11:30-0400 Body temperature 97.9 [degF] Dr. Micah Díaz DO Work Phone: [facility] 12-22-2024 11:30-0400 Body weight 80.[address] Micah Díaz DO Work Phone: [facility] 12-22-2024 11:30-0400 Diastolic blood pressure 78 mm[Hg] Dr. Micah Díza DO Work Phone: [facility] 12-22-2024 11:30-0400 Heart rate 64 /min Dr. Micah Díaz DO Work Phone: [facility] 12-22-2024 11:30-0400 Systolic blood pressure 126 mm[Hg] Dr. Micah Díaz DO Work Phone: [facility] 12-15-2024 11:28-0400 Body height 165.[address] Micah Díaz DO Work Phone: [facility] 12-15-2024 11:28-0400 Body mass index (BMI) [Ratio] 29.6 kg/m2 Dr. Micah Díaz DO Work Phone: [facility] 12-15-2024 11:28-0400 Body temperature 98 [degF] Dr. Micah Díaz DO Work Phone: [facility] 12-15-2024 11:28-0400 Body weight 80.[address] Micah Díaz DO Work Phone: [facility] 12-15-2024 11:28-0400 Diastolic blood pressure 84 mm[Hg] Dr. Micah Díaz DO Work Phone: [facility] 12-15-2024 11:28-0400 Heart rate 68 /min Dr. Micah Díaz DO Work Phone: [facility] 12-15-2024 11:28-0400 Systolic blood pressure 128 mm[Hg] Dr. Micah Díaz DO Work Phone: [facility] 12-07-2024 15:31-0400 Body height 165.[address] Micah Díaz DO Work Phone: [facility] 12-07-2024 15:31-0400 Body mass index (BMI) [Ratio] 29.6 kg/m2 Dr. Micah Díaz DO Work Phone: [facility] 12-07-2024 15:31-0400 Body temperature 98 [degF] Dr. Micah Díaz DO Work Phone: [facility] 12-07-2024 15:31-0400 Body weight 80.[address] Micah Díaz DO Work Phone: [facility] 12-07-2024 15:31-0400 Diastolic blood pressure 78 mm[Hg] Dr. Micah Díaz DO Work Phone: [facility] 12-07-2024 15:31-0400 Heart rate 60 /min Dr. Micah Díaz DO Work Phone: [facility] 12-07-2024 15:31-0400 Systolic blood pressure 120 mm[Hg] Dr. Micah Díaz DO Work Phone: [facility] 07-20-2024 11:01-0400 Body mass index (BMI) [Ratio] 32.3 kg/m2 Dr. Micah Díaz DO Work Phone: [facility] 07-20-2024 11:01-0400 Body weight 87.[address] Micah Díaz DO Work Phone: [facility] 07-20-2024 11:01-0400 Diastolic blood pressure 83 mm[Hg] Dr. Micah Díaz DO Work Phone: [facility] 07-20-2024 11:01-0400 Heart rate 57 /min Dr. Micah Díaz DO Work Phone: [facility] 07-20-2024 11:01-0400 Respiratory rate 18 /min Dr. Micah Díaz DO Work Phone: [facility] 07-20-2024 11:01-0400 SaO2% (BldA) [Mass fraction] 97 % Dr. Micah Díaz DO Work Phone: [facility] 07-20-2024 11:01-0400 Systolic blood pressure 162 mm[Hg] Dr. Micah Díaz DO Work Phone: [facility] 05-18-2024 13:52-0500 Body height 164.5 cm Cassy Zuniga MD Work Phone: [facility] 05-18-2024 13:52-0500 Body mass index (BMI) [Ratio] 32.37 kg/m2 Cassy Zuniga MD Work Phone: [facility] 05-18-2024 13:52-0500 Body weight 87.54 kg Cassy Zuniga MD Work Phone: [facility] 05-18-2024 13:52-0500 Diastolic blood pressure 74 mm[Hg] Cassy Zuniga MD Work Phone: [facility] 05-18-2024 13:52-0500 Systolic blood pressure 148 mm[Hg] Cassy Zuniga MD Work Phone: [facility] 04-25-2023 10:56-0500 Body height 165.[address] Micah Díaz Work Phone: [facility] 04-25-2023 10:56-0500 Body mass index (BMI) [Ratio] 31.2 kg/m2 Dr. Micah Díaz Work Phone: [facility] 04-25-2023 10:56-0500 Body weight 85.[address] Micah Díaz Work Phone: [facility] 04-25-2023 10:56-0500 Diastolic blood pressure 82 mm[Hg] Dr. Micah Díaz Work Phone: [facility] 04-25-2023 10:56-0500 Heart rate 78 /min Dr. Micah Díaz Work Phone: [facility] 04-25-2023 10:56-0500 Respiratory rate 18 /min Dr. Micah Díaz Work Phone: [facility] 04-25-2023 10:56-0500 SaO2% (BldA) [Mass fraction] 96 % Dr. Micah Díaz Work Phone: [facility] 04-25-2023 10:56-0500 Systolic blood pressure 119 mm[Hg] Dr. Micah Díaz Work Phone: [facility] 01-07-2023 14:20-0400 Body height 165.[address] Micah Díaz Work Phone: [facility] 01-07-2023 14:20-0400 Body mass index (BMI) [Ratio] 30.9 kg/m2 Dr. Micah Díaz Work Phone: [facility] 01-07-2023 14:20-0400 Body weight 84.[address] Micah Díaz Work Phone: [facility] 01-07-2023 14:20-0400 Diastolic blood pressure 67 mm[Hg] Dr. Micah Díaz Work Phone: [facility] 01-07-2023 14:20-0400 Heart rate 52 /min Dr. Micah Díaz Work Phone: [facility] 01-07-2023 14:20-0400 Respiratory rate 18 /min Dr. Micah Díaz Work Phone: [facility] 01-07-2023 14:20-0400 SaO2% (BldA) [Mass fraction] 97 % Dr. Micah Díaz Work Phone: [facility] 01-07-2023 14:20-0400 Systolic blood pressure 121 mm[Hg] Dr. Micah Díaz Work Phone: [facility] 12-24-2022 11:13-0400 Body height 165.[address] Micah Díaz Work Phone: [facility] 12-24-2022 11:13-0400 Body weight 83.[address] Micah Díaz Work Phone: [facility] 12-23-2022 14:17-0400 Body mass index (BMI) [Ratio] 30.7 kg/m2 Dr. Micah Díaz Work Phone: [facility] 11-01-2022 10:33-0400 Body height 165.[address] Micah Díaz Work Phone: [facility] 11-01-2022 10:33-0400 Body weight 83.[address] Micah Díaz Work Phone: [facility] 10-31-2022 07:09-0400 Body mass index (BMI) [Ratio] 30.7 kg/m2 Dr. Micah Díaz Work Phone: [facility] 10-03-2022 09:50-0400 Body mass index (BMI) [Ratio] 30.7 kg/m2 Dr. Micah Díaz Work Phone: [facility] 10-03-2022 09:50-0400 Body weight 83.[address] Micah Díaz Work Phone: [facility] 10-03-2022 09:50-0400 Diastolic blood pressure 80 mm[Hg] Dr. Micah Díaz Work Phone: [facility] 10-03-2022 09:50-0400 Heart rate 92 /min Dr. Micah Díaz Work Phone: [facility] 10-03-2022 09:50-0400 Respiratory rate 18 /min Dr. Micah Díaz Work Phone: [facility] 10-03-2022 09:50-0400 SaO2% (BldA) [Mass fraction] 98 % Dr. Micah Díaz Work Phone: [facility] 10-03-2022 09:50-0400 Systolic blood pressure 129 mm[Hg] Dr. Micah Díaz Work Phone: [facility] 05-31-2022 09:49-0500 Body height 165.[address] Micah Díaz Work Phone: [facility] 05-31-2022 09:49-0500 Diastolic blood pressure 77 mm[Hg] Dr. Micah Díaz Work Phone: [facility] 05-31-2022 09:49-0500 Systolic blood pressure 120 mm[Hg] Dr. Micah Díaz Work Phone: [facility] 05-31-2022 09:49-0500 Body mass index (BMI) [Ratio] 32.9 kg/m2 Dr. Micah Díaz Work Phone: [facility] 05-31-2022 09:49-0500 Body weight 89.[address] Micah Díaz Work Phone: [facility] 05-31-2022 09:49-0500 Heart rate 52 /min Dr. Micah Díaz Work Phone: [facility] 05-31-2022 09:49-0500 Respiratory rate 20 /min Dr. Micah Díaz Work Phone: [facility] 05-31-2022 09:49-0500 SaO2% (BldA) [Mass fraction] 96 % Dr. Micah Díaz Work Phone: [facility] 09-26-2021 13:36-0400 Body height 170.2 cm Roxane Pineda MD Work Phone: [facility] 09-26-2021 13:36-0400 Body weight 88 kg Roxane Pineda MD Work Phone: [facility] 09-26-2021 13:36-0400 Diastolic blood pressure 74 mm[Hg] Roxane Pineda MD Work Phone: [facility] 09-26-2021 13:36-0400 Systolic blood pressure 128 mm[Hg] Roxane Pineda MD Work Phone: [facility] 07-24-2021 13:23-0400 Body height 170.2 cm Roxane Pineda MD Work Phone: [facility] 07-24-2021 13:23-0400 Body weight 89.81 kg Roxane Pineda MD Work Phone: [facility] 05-08-2021 12:23-0500 Body height 165.[address] Micah Díaz Work Phone: [facility] Work Phone: 05-08-2021 12:23-0500 Body mass index (BMI) [Ratio] 33.1 kg/m2 Dr. Micah Díaz Work Phone: [facility] Work Phone: 05-08-2021 12:23-0500 Body weight 90.[address] Micah Díaz Work Phone: [facility] Work Phone: 05-08-2021 12:23-0500 Diastolic blood pressure 80 mm[Hg] Dr. Micah Díaz Work Phone: [facility] Work Phone: 05-08-2021 12:23-0500 Heart rate 53 /min Dr. Micah Díaz Work Phone: [facility] Work Phone: 05-08-2021 12:23-0500 Respiratory rate 18 /min Dr. Micah Díaz Work Phone: [facility] Work Phone: 05-08-2021 12:23-0500 SaO2% (BldA) [Mass fraction] 95 % Dr. Micah Díaz Work Phone: [facility] Work Phone: 05-08-2021 12:23-0500 Systolic blood pressure 148 mm[Hg] Dr. Micah Díaz Work Phone: [facility] Work Phone: 05-21-2016 10:03-0500 BMI (Body Mass Index) 32.48 kg/m2 MD [facility] Work Phone: 05-21-2016 10:03-0500 BP Diastolic 64 mm[Hg] MD [facility] Work Phone: 05-21-2016 10:03-0500 BP Systolic 120 mm[Hg] MD [facility] Work Phone: 05-21-2016 10:03-0500 BSA (Body Surface Area) 2.06 m2 MD [facility] Work Phone: 05-21-2016 10:03-0500 Pulse (Heart Rate) 52 /min Angel Fairchild MD [facility] Work Phone: 05-21-2016 10:03-0500 Respiratory Rate 20 /min Angel Fairchild MD [facility] Work Phone: 05-21-2016 10:03-0500 Weight 94.08 kg Angel Fairchild MD [facility] Work Phone: 12-08-2014 08:39-0400 Heart rate 59 /min Angel Fairchild MD [facility] Work Phone: 11-03-2013 11:39-0400 Heart rate 416 ms Angel Fairchild MD [facility] [employer] Work Phone: 09-03-2011 11:22-0400 Height 170.18 cm Angel Fairchild MD [facility] Work Phone: Encounters Encounter Date Encounter Type Care Provider Facility Start: 02-21-2025 End: 02-21-2025 ambulatory [facility] Facility:[facility] Start: 02-13-2025 End: 02-15-2025 ambulatory [facility] Facility:[facility] Start: 02-02-2025 End: 02-02-[address] Lynn Christensen MD -[facility] Work Phone: Start: 02-02-2025 End: 02-02-2025 ambulatory [facility] Facility:[facility] Start: 01-26-2025 End: 01-26-[address] Lynn Christensen MD -[facility] Work Phone: Start: 01-26-2025 End: 01-26-[address] Micah Díaz DO Work Phone: -[facility] Start: 01-20-2025 End: 01-20-2025 Patient encounter procedure Ileana ALEGRE -[facility] Work Phone: Start: 01-20-2025 End: 01-20-[address] Micah Díaz DO Work Phone: -[facility] Start: 01-19-2025 End: 01-19-[address] Christiano Medeiros DPM -Physical Therapy Work Phone: Start: 01-19-2025 End: 01-19-[address] Lynn Christensen MD -[facility] Work Phone: Start: 01-19-2025 End: 01-19-[address] Micah Díaz DO Work Phone: -[facility] Start: 01-14-2025 End: 01-14-[address] Lynn Christensen MD -[facility] Work Phone: Start: 01-14-2025 End: 01-14-[address] Micah Díaz DO Work Phone: -[facility] Start: 01-14-2025 Non-patient / Non-visit Dr. Lynn negron MD -[facility] Work Phone: Start: 01-13-[address] Monserrat Medeiros DPM -Physical Therapy Work Phone: Start: 01-12-2025 End: 01-12-[address] Lynn Christensen MD -[facility] Work Phone: Start: 01-12-2025 End: 01-12-[address] Micah Díaz DO Work Phone: -[facility] Start: 01-11-[address] Monserrat Medeiros DPM -Physical Therapy Work Phone: Start: 01-07-2025 Non-patient / Non-visit Dr. Reginald casanova MD -[facility] Start: 01-07-2025 End: 01-07-[address] Micah Díaz DO Work Phone: -[facility] Services Start: 01-07-2025 End: 01-07-[address] Micah Díaz DO -[facility] Work Phone: Start: 01-07-2025 End: 01-07-2025 ambulatory Micah Díaz Facility:[facility] Start: 01-05-2025 End: 01-05-[address] Lynn Christensen MD -[facility] Work Phone: Start: 01-05-2025 End: 01-05-[address] Micah Díaz DO Work Phone: -[facility] Start: 12-29-2024 End: 12-29-[address] Lynn Christensen MD -[facility] Work Phone: Start: 12-29-2024 End: 12-29-[address] Micah Díaz DO Work Phone: -[facility] Start: 12-28-[address] Monserrat Medeiros DP -Physical Therapy Work Phone: Start: 12-22-2024 End: 12-22-[address] Lynn Christensen MD -[facility] Work Phone: Start: 12-22-2024 End: 12-22-[address] Micah Díaz DO Work Phone: -[facility] Start: 12-21-[address] Monserrat Medeiros DPBrigitte -Physical Therapy Work Phone: Start: 12-15-2024 End: 12-15-[address] Lynn Christensen MD -[facility] Work Phone: Start: 12-15-2024 End: 12-15-[address] Micah Díaz DO Work Phone: -[facility] Start: 12-07-2024 End: 12-07-[address] Lynn Christensen MD -[facility] Work Phone: Start: 12-07-2024 End: 12-07-[address] Micah Díaz DO Work Phone: -[facility] Start: 11-17-2024 ambulatory [facility] Facility: [facility] Start: 11-17-2024 Non-patient / Non-visit Dr. Lynn negron MD -[facility] Work Phone: Start: 10-12-2024 Non-patient / Non-visit Dr. Lynn negron MD -[facility] Work Phone: Start: 09-15-2024 End: 09-15-[address] Micah Díaz DO Work Phone: [facility] Work Phone: Start: 09-15-2024 End: 09-15-[address] Christiano Medeiros DPM [facility] Work Phone: Start: 09-15-2024 End: 09-15-2024 ambulatory [facility] Facility:[facility] Start: 08-31-2024 End: 08-31-[address] Matti Camarillo DO -Laboratory Work Phone: Start: 08-31-2024 End: 08-31-2024 ambulatory Matti Camarillo Facility:[facility] Start: 07-23-2024 Non-patient / Non-visit Milka PRIEST -[facility] Work Phone: Start: 07-23-2024 ambulatory [facility] Facility: [facility] Start: 07-22-2024 Non-patient / Non-visit Dr. [place] Start: 07-22-2024 End: 07-22-[address] Micah Díaz DO Work Phone: [facility] Work Phone: Start: 07-22-2024 End: 07-22-2024 Patient encounter procedure Milka Mckenna DRUG DISCOVERY INFORMATICS SPECIALIST-C -Cardiovascular Services Work Phone: Start: 07-22-2024 End: 07-22-2024 ambulatory Micah Díaz Facility:[facility] Start: 07-20-2024 End: 07-20-2024 Patient encounter procedure Milka Mckenna DRUG DISCOVERY INFORMATICS SPECIALIST-C -[facility] Work Phone: Start: 07-20-2024 End: 07-20-2024 ambulatory Micah Díaz Facility:[facility] Start: 06-28-2024 End: 06-28-[address] Micah Díaz DO Work Phone: [facility] Work Phone: Start: 06-28-2024 End: 06-28-[address] [facility] Start: 06-28-2024 End: 06-28-2024 ambulatory Micah Díaz Facility:[facility] Start: 06-17-2024 End: 06-17-[address] Micah Díaz DO Work Phone: [facility] Work Phone: Start: 06-17-2024 End: 06-17-[address] [facility] Start: 06-17-2024 End: 06-17-2024 ambulatory Micah Díaz Facility:[facility] Start: 06-08-2024 End: 06-08-[address] Micah Díaz DO Work Phone: [facility] Work Phone: Start: 06-08-2024 End: 06-08-[address] Rene Lomax MD -Physical Therapy Work Phone: Start: 06-08-[address] Rene Manriquez i, MD -Physical Therapy Work Phone: Start: 05-19-2024 End: 05-19-2024 ambulatory CASSY ZUNIGA Facility:[facility] Start: 05-19-2024 Encounter for gynecological examination (general) (routine) without abnormal findings CASSY ZUNIGA [facility] Start: 05-19-2024 End: 05-19-2024 [facility] Start: 05-19-2024 End: 05-19-2024 Subsequent hospital visit by physician Screen Mammo [facility] M[facility] Comment on above: Encounter for gyneco logical examination (general) (routine) without abnormal findings [Z01.419] Start: 05-18-2024 End: 05-18-2024 ambulatory CASSY ZUNIGA Facility:[facility] Start: 05-18-2024 End: 05-18-2024 Patient encounter procedure Cassy Zuniga MD Work Phone: OB/Gynecology Comment on above: Encounter for gyneco logical examination (general) (routine) without abnormal findings (Primary Dx); Encounter for screening mammogram for breast cancer Start: 05-18-2024 End: 05-18-2024 Patient encounter status Cassy Zuniga MD Work Phone: [facility] Start: 04-27-2024 End: 04-27-[address] [facility] Start: 04-27-2024 End: 04-27-2024 ambulatory Matti Camarillo Facility:[facility] Start: 03-26-2024 End: 03-29-2024 Telephone encounter Cassy Zuniga MD Work Phone: OB/Gynecology Comment on above: Patient Question Start: 07-01-2023 End: 07-01-[address] Micah Díaz Work Phone: [facility] Work Phone: Start: 07-01-2023 End: 07-01-[address] Micah Díaz Work Phone: [facility] Work Phone: Start: 04-25-2023 End: 04-25-[address] Micah Díaz Work Phone: [facility] Work Phone: Start: 04-21-2023 End: 04-21-2023 Subsequent hospital visit by physician Xr [facility] Work Phone: Radiology Comment on above: Left wrist pain [M25 .532] Start: 04-04-2023 Documentation procedure Mammog minda Coordinator [facility] Start: 04-04-2023 Letter encounter Mammography Coordinator [facility] Department Start: 03-31-2023 Telephone encounter Cassy Zuniga MD Work Phone: [facility] [place] Comment on above: Orders Start: 02-28-2023 End: 02-28-[address] Micah Díaz Work Phone: [facility] Work Phone: Start: 02-28-2023 End: 02-28-[address] Micah Díaz Work Phone: [facility] Work Phone: Start: 01-30-2023 Non-patient / Non-visit Dr. Balbir Díaz Work Phone: [facility] Start: 01-30-2023 End: 01-30-[address] Micah Díaz Work Phone: [facility] Work Phone: Start: 01-30-2023 End: 01-30-[address] Micah Díaz Work Phone: [facility]-Cardiovascul ar Services Work Phone: Start: 01-07-2023 End: 01-07-[address] Micah Díaz Work Phone: [facility] Work Phone: Start: 12-31-2022 End: 12-31-[address] Micah Díaz Work Phone: [facility] Work Phone: Start: 12-24-2022 Non-patient / Non-visit Dr. Balbir Díaz Work Phone: [facility] Start: 12-24-2022 End: 12-24-2022 Admission to same day surgery center Dr. Micah Díaz Work Phone: [facility]-Inspector Soldering/Special Procedures Work Phone: Start: 12-24-2022 End: 12-24-[address] Micah Díaz Work Phone: [facility] Work Phone: Start: 12-23-2022 End: 12-23-[address] Micah Díaz Work Phone: [facility] Work Phone: Start: 12-23-2022 End: 12-23-[address] Micah Díaz Work Phone: [facility] Work Phone: Start: 12-01-2022 Non-patient / Non-visit Dr. Balbir Díaz Work Phone: [facility] Start: 11-01-2022 Non-patient / Non-visit Dr. Balbir Díaz Work Phone: [facility] Start: 11-01-2022 Non-patient / Non-visit Dr. Balbir Díaz Work Phone: [facility] Start: 11-01-2022 End: 11-01-2022 Admission to same day surgery center Dr. Micah Díaz Work Phone: [facility]-Inspector Soldering/Special Procedures Work Phone: Start: 10-16-2022 End: 10-16-[address] Micah Díaz Work Phone: [facility] Work Phone: Start: 10-16-2022 End: 10-16-[address] Micah Díaz Work Phone: [facility]-Physical Therapy Work Phone: Start: 10-09-2022 End: 10-09-[address] Micah Díaz Work Phone: [facility] Work Phone: Start: 10-03-2022 End: 10-03-[address] Micah Díaz Work Phone: [facility] Work Phone: Start: 06-12-2022 Non-patient / Non-visit Dr. Balbir Díaz Work Phone: [facility] Start: 2022 Non-patient / Non-visit Dr. Balbir Díaz Work Phone: [facility] Start: [address] Micah Díaz Work Phone: [facility]-Cardiovascul ar Services Start: 06-10-2022 End: 06-10-[address] Micah Díaz Work Phone: [facility] Work Phone: Start: 06-10-2022 End: 06-10-[address] Micah Díaz Work Phone: [facility]-Radiology, [facility] Start: 06-03-[address] Micah Díaz Work Phone: [facility]-Physical Therapy Start: 05-31-2022 End: 05-31-[address] Micah Díaz Work Phone: [facility] Start: 04-24-2022 End: 04-24-2022 ambulatory [facility] Work Phone: Start: 04-24-2022 End: 04-24-2022 Patient encounter procedure [facility] Start: 04-22-2022 End: 04-22-2022 ambulatory [facility] Work Phone: Start: 04-22-2022 End: 04-22-2022 Patient encounter procedure [facility], Hien Vanegas [facility] Start: 03-27-2022 End: 03-27-2022 ambulatory [facility] Facility:[facility] Start: 03-26-2022 Documentation procedure Mammog minda Coordinator [facility] Start: 03-26-2022 Letter encounter Mammography Coordinator [facility] Department Start: 03-25-2022 End: 03-25-2022 Subsequent hospital visit by physician Screen Mammo [facility] Mammogram Comment on above: Encounter for screen ing mammogram for malignant neoplasm of breast [Z12.31] Start: 03-22-2022 Telephone encounter Cassy Zuniga MD Work Phone: OB/Gynecology Comment on above: Orders Start: 02-27-2022 End: 02-27-2022 ambulatory [facility] Work Phone: Start: 02-27-2022 End: 02-27-2022 [facility] Start: 02-07-2022 Telephone encounter Roxane Pineda MD Work Phone: [facility] Comment on above: Medication Problem Start: 01-18-2022 End: 01-18-2022 ambulatory [facility] Work Phone: Start: 01-18-2022 End: 01-18-2022 Patient encounter procedure [facility], Hien Vanegas [facility] Start: 01-01-2022 Telephone encounter Roxane Pineda MD Work Phone: [facility] Comment on above: Medication Problem Start: 12-26-2021 End: 12-26-2021 ambulatory [facility] Facility:[facility] Start: 12-18-2021 Telephone encounter Roxane Pineda MD Work Phone: [facility] Comment on above: Patient Question Start: 12-10-2021 ambulatory MICAH DÍAZ Facilit y:[facility] Start: 11-13-2021 Telephone encounter Roxane Pineda [...] Telephone encounter Roxane Pineda MD Work Phone: [facility] Comment on above: FYI-No Action Needed ; Medication Problem Start: 09-26-2021 End: 09-26-2021 ambulatory MICAH DÍAZ Facility:[facility] Start: 09-26-2021 End: 09-26-2021 ambulatory MICAH JOEUTZMAN Facility: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 Micah Díaz Work Phone[facility] Start: 07-24-2021 End: 07-24-2021 ambulatory MICAH Farzaneh BRE Facility:[facility] Start: 07-24-2021 End: 07-24-2021 Patient encounter procedure Roxane Pineda MD Work Phone: Urology Comment on above: Vaginal enterocele ( Primary Dx); Urge incontinence; Urgency of urination; Rectocele Start: 05-14-2021 Non-patient / Non-visit Dr. Balbir Díaz Work Phone: [facility] Start: 05-14-2021 End: 05-14-[address] [facility] Start: 05-08-2021 End: 05-08-[address] Micah Díaz Work Phone: [facility] Start: 10-22-2010 End: 10-24-2010 Patient encounter status Cassy Zuniga MD Work Phone: [facility] Work Phone: Procedures Date Procedure Procedure Detail Performing Clinician Start: 02-15-[address] Micah Díaz DO Work Phone: Start: 09-15-2024 MRI of joint of lowe r extremity Dr. Micah Díaz DO Work Phone: Start: 08-31-2024 Vitamin D, 25-hydrox y measurement Dr. Micah Díaz DO Work Phone: Comment on above: Vitamin D StatusDefi ciency: <20 ng/mL (50nmol/L)Insufficiency: 20-30 ng/mL (50-75 nmol/L)Sufficiency: 30-100 ng/mL (75-250 nmol/L)Toxicity: >100 ng/mL (>250 nmol/L) Start: 04-21-2023 Radex wrist complete minimum 3 views Saira Moore APRN.STRAIGHTEDGE MACHINE OPERATOR HELPER Work Phone: Start: 2022 Cardiovascular stres s [...] Angel Fairchild MD Start: 12-08-2014 End: 12-08-2014 VENDETTE Ileana Beltrán PA-C Work Phone: Start: 12-08-2014 [...] PA-C Work Phone: Start: 11-03-2013 End: 11-08-2013 [facility] Ileana Beltrán PA-C Work Phone: Start: 11-03-2013 End: 11-03-2013 Follow Up Appt 6 months Ileana keith PA-C Work Phone: Start: 04-30-2013 End: 04-30-2013 Follow Up Appt 6 months Brigitte Allan Start: 04-30-2013 End: 04-30-2013 DAMASO Fairchild MD Start: 09-29-2012 End: 09-29-2012 TWIN Beltrán PA-C Work Phone: Start: 09-29-2012 End: 10-01-2012 [facility] Ileana Beltrán PA-C Work Phone: Start: 09-29-2012 End: 09-29-2012 Follow Up Appt 6 months Ileana keith PA-C Work Phone: Start: 10-02-2011 End: 10-02-2011 Follow Up Appt 1 year Angel Fairchild MD Plan of Treatment Date Care Activity Detail Author Start: 02-21-2025 End: 02-21-2025 Patient encounter procedure UTI (urinary tract infection) -[facility] Work Phone: Start: 02-15-2025 Non-patient / Non-visit Non-patient / Non-visit -[facility] Work Phone: Start: 02-15-2025 Patient discharge [facility] Start: 02-14-2025 Non-patient / Non-visit Non-patient / Non-visit -[facility] Work Phone: Start: 02-14-2025 Non-patient / Non-visit Non-patient / Non-visit -[facility] Start: 02-14-2025 Cardiovascular stres s test using pharmacologic stress agent Nuclear Stress Test - Chemical [facility] Start: 02-13-2025 Following clinical pathway protocol [facility] Start: 02-13-2025 Continuous positive airway pressure ventilation treatment [facility] Start: 02-13-2025 Assessment of risk o f venous thromboembolism [facility] Start: 02-13-2025 Insertion of cathete r into peripheral vein [facility] Start: 02-13-2025 Notification of physician [facility] Start: 02-13-2025 Providing care accor ding to standard [facility] Start: 02-13-2025 Provision of activit y privileges [facility] Start: 02-13-2025 [facility] Start: 02-13-[address] [facility] Start: 02-13-2025 End: 02-15-2025 Evaluation and management of inpatient Essential hypertension -Progressive Care Unit Work Phone: Start: 02-13-2025 Radiologic exam ches t 2 views Chest PA and Lateral [facility] Start: 02-13-2025 [facility] Start: 02-02-2025 End: 02-02-2025 Patient encounter procedure Nocturia -[facility] Work Phone: Start: 01-26-2025 End: 01-26-2025 Patient encounter procedure Nocturia -[facility] Work Phone: Start: 01-11-2025 Registered Recurring Registered Recu rring -Physical Therapy Work Phone: Start: 01-07-2025 Non-patient / Non-visit Non-patient / Non-visit -[facility] Start: 05-19-2024 End: 05-19-2024 Patient encounter procedure 05/19/2024 1:50 PM EST Appointment Mammogram [address] [place] [address] Encounter for gynecological examination (general) (routine) without abnormal findings [Z01.419]; Encounter for screening mammogram for breast cancer [Z12.31] Mammogram Comment on above: Encounter for gyneco logical examination (general) (routine) without abnormal findings [Z01.419]; Encounter for screening mammogram for breast cancer [Z12.31] Start: 05-12-2024 End: 05-12-2024 Patient encounter procedure 05/12/2024 3:20 PM EST Office Visit OB/Gynecology [address] [place] [address] Cassy Zuniga MD [address] [place], [place] [id number] Pelvic/breast exam OB/Gynecology Comment on above: Pelvic/breast exam Start: 04-14-2024 Advance Directive Discussion Advance Directive Discussion [facility] Start: 12-14-2023 Covid-19 Vaccine () Covid-19 Vaccine () [facility] Start: 12-14-2023 Covid-19 Vaccine () Covid-19 Vaccine () [facility] Start: 12-14-2023 Influenza vaccination Influenza Vacc ine (#1) [facility] Start: 05-25-2023 Covid-19 Vaccine () Covid-19 Vaccine () [facility] Start: 04-14-2023 Advance Directive Discussion Advance Directive Discussion [facility] Start: 04-14-2023 Behavioral Health Screening Behavioral Health Screening [facility] Start: 03-27-2023 BP CONTROLLED (<130/80) BP CONTROLLE D (<130/80) [facility] Start: 12-24-2022 Patient discharge [facility] Start: 12-13-2022 Covid-19 Vaccine ( season) Covid-19 Vaccine ( season) [facility] Start: 12-13-2022 Influenza vaccination Influenza Vacc ine (#1) [facility] Start: 11-01-2022 [place] [facility] Start: 10-03-2022 Patient referral [facility] Work Phone: Start: 09-26-2022 BP CONTROLLED (<130/80) BP CONTROLLE D (<130/80) [facility] Start: 04-14-2022 Advance Directive Discussion Advance Directive Discussion [facility] Start: 04-14-2022 Depression Assessment Depression Ass essment [facility] Start: 12-13-2021 Influenza vaccination INFLUENZA (#1) [facility] Start: 09-20-2021 COVID-19 VACCINE (5 - Booster for Pfizer series) COVID-19 VACCINE (5 - Booster for Pfizer series) [facility] Start: 05-20-2021 COVID-19 VACCINE (4 - Booster for Pfizer series) COVID-19 VACCINE (4 - Booster for Pfizer series) [facility] Start: 04-14-2021 ADVANCE DIRECTIVE DISCUSSION ADVANCE DIRECTIVE DISCUSSION [facility] Start: 04-14-2021 DEPRESSION ASSESSMENT DEPRESSION ASS ESSMENT [facility] Start: 2019 RSV Vaccine (1 - 1-d ose 75+ series) RSV Vaccine (1 - 1-dose 75+ series) [facility] Start: 05-22-2017 End: 05-22-2017 Appointment Appointment [facility] Work Phone: Start: 05-21-2016 End: 05-21-2016 [facility] Work Phone: Start: 05-21-2016 End: 05-21-2016 Follow Up Appt 1 year Follow Up Appt 1 year [facility] Work Phone: Start: 07-12-2015 End: 07-12-2015 Physical Therapy General Physical Therapy [facility], [address] [place] [address], [id number] [facility] Work Phone: Start: 05-19-2015 End: 05-19-2015 VENDETTE VENDETTE [facility] Work Phone: Start: 05-19-2015 End: 05-19-2015 Follow Up Appt 1 year Follow Up Appt 1 year [facility] Work Phone: Start: 12-08-2014 End: 12-08-2014 VENDETTE TWIN [facility] Work Phone: Start: 12-08-2014 End: 12-08-2014 Ecg routine ecg w/least 12 lds w/i&r EKG (In office) [facility] Work Phone: Start: 12-08-2014 End: 12-08-2014 Follow Up Appt 6 months Follow Up Appt 6 months [facility] Work Phone: Start: 12-08-2014 End: 12-08-2014 Follow Up Appt Other Follow Up Appt Other [facility] Work Phone: Start: 05-12-2014 End: 05-12-2014 Follow Up Appt 6 months Follow Up Appt 6 months [facility] Work Phone: Start: 05-12-2014 End: 05-12-2014 MMM MMM [facility] Work Phone: Start: 11-03-2013 End: 11-03-2013 VENDETTE TWIN [facility] Work Phone: Start: 11-03-2013 End: 11-03-2013 Echocardiography Echocardiogram (complete) [facility] Work Phone: Start: 11-03-2013 End: 11-03-2013 Follow Up Appt 6 months Follow Up Appt 6 months [facility] Work Phone: Start: 10-28-2013 DIABETES SCREEN DIABETES SCREEN [facility] Start: 10-28-2013 Diabetes Screening Diabetes Screenin g [facility] Start: 04-30-2013 End: 04-30-2013 Follow Up Appt 6 months Follow Up Appt 6 months [facility] Work Phone: Start: 04-30-2013 End: 04-30-2013 MMM MMM [facility] Work Phone: Start: 09-29-2012 End: 09-29-2012 VENDETTE VENDETTE [facility] Work Phone: Start: 09-29-2012 End: 09-29-2012 Echocardiography Echocardiogram (complete) [facility] Work Phone: Start: 09-29-2012 End: 09-29-2012 Follow Up Appt 6 months Follow Up Appt 6 months [facility] Work Phone: Start: 10-28-2011 Pneumococcal Vaccine : 50+ (2 of 2 - PCV) Pneumococcal Vaccine: 50+ (2 of 2 - PCV) [facility] Start: 10-28-2011 Pneumococcal Vaccine : 65+ (2 - PCV) Pneumococcal Vaccine: 65+ (2 - PCV) [facility] Start: 10-28-2011 Pneumococcal Vaccine : 65+ (2 of 2 - PCV) Pneumococcal Vaccine: 65+ (2 of 2 - PCV) [facility] Start: 10-28-2011 PNEUMOCOCCAL: 65+ (2 - PCV) PNEUMOCOCCAL: 65+ (2 - PCV) [facility] Start: 10-02-2011 End: 10-02-2011 Follow Up Appt 1 year Follow Up Appt 1 year [facility] Work Phone: Start: 2009 BONE DENSITY BONE DENSITY [facility] Start: 2009 Bone Density Screening Bone Density Screening [facility] Start: 2009 Screening for osteoporosis Bone Density Screening [facility] Start: 2004 RSV Vaccine (1 - 1-d ose 60+ series) RSV Vaccine (1 - 1-dose 60+ series) [facility] Start: 1994 SHINGRIX VACCINE (1 of 2) KUMAR GRIX VACCINE (1 of 2) [facility] Start: 1963 Urine microalbumin profile [facility] Start: 1962 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 ANNUAL PCP TEAM CHRONIC DISEASE VISIT [facility] Start: 1962 BP CONTROLLED (<130/80) BP CONTROLLE D (<130/80) [facility] Start: 1962 Depression Screening Depression Scre concha [facility] Start: 1962 HEPATITIS C SCREENING HEPATITIS C [facility] Start: 1962 Hepatitis C screening Hepatitis C [facility] Start: 1956 Adult depression screening assessment DEPRESSION SCREENING [facility] Cardiac event recording [facility] End: 06-17-2025 DBT Breast - bilateral screening KAJAL SCREENING W SYBIL Radiology Routine Encounter for gynecological examination (general) (routine) without abnormal findings Encounter for screening mammogram for breast cancer 1 Occurrences starting 05/18/2024 until 06/17/2025 [facility] Work Phone: Comment on above: 1 Occurrences starti ng 05/18/2024 until 06/17/2025 DBT Breast - bilater al screening KAJAL SCREENING W SYBIL Radiology Routine Encounter for gynecological examination (general) (routine) without abnormal findings Encounter for screening mammogram for breast cancer 05/19/2024 2:22 PM EST [facility] Work Phone: H&P for surgery H&P FOR SURGERY Procedures Routine Prolapse of vaginal vault after hysterectomy Stress incontinence Rectocele Ordered: 10/13/2021 [facility] Work Phone: Comment on above: Ordered: 10/13/2021 End: 04-21-2023 KAJAL SCREENING KAJAL SCREENING Radiology Routine Encounter for screening mammogram for malignant neoplasm of breast 1 Occurrences starting 03/22/2022 until 04/21/2023 [facility] Work Phone: Comment on above: 1 Occurrences starti ng 03/22/2022 until 04/21/2023 End: 04-25-2025 MG Breast Screening KAJAL SCREENING Radiology Routine Encounter for screening mammogram for malignant neoplasm of breast 1 Occurrences starting 03/29/2024 until 04/25/2025 [facility] Work Phone: Comment on above: 1 Occurrences starti ng 03/29/2024 until 04/25/2025 Patient Education [facility] Work Phone: Patient referral [facility] Work Phone: URODYNAMICS URODYNAMICS Proc edures Routine Urge incontinence Ordered: 09/20/2021 [facility] Work Phone: Comment on above: Ordered: 09/20/2021 [facility] Immunizations Immunization Date Immunization Notes Care Provider Michele francis 02-01-2025 Seasonal trivalent influenza vaccine, adjuvanted, preservative free Dr. Micah Díaz DO Work Phone: [facility] 03-07-[address] Micah Díaz DO Work Phone: [facility] 01-25-2024 Pfizer Covid-19 (Comirnaty) Dr. Micah Díaz DO Work Phone: [facility] 12-30-2023 Seasonal trivalent influenza vaccine, adjuvanted, preservative free Dr. Micah Díaz DO Work Phone: [facility] 11-21-[address] Micah Díaz DO Work Phone: [facility] 07-08-2023 Pneumococcal Vaccine PCV20 (Prevnar 20) Dr. Micah Díaz DO Work Phone: [facility] 01-22-2023 Pfizer Covid-19 (Comirnaty) Dr. Micah Díaz DO Work Phone: [facility] 01-14-2023 influenza, injectabl e, quadrivalent, preservative free Dr. Micah Díaz DO Work Phone: [facility] 01-14-2023 influenza virus vacc ine, unspecified formulation Xr [place] Work Phone: [facility] 01-04-2022 Covid Pfizer Bivalen t Booster Dr. Micah Díaz DO Work Phone: [facility] 12-21-2021 influenza, injectabl e, quadrivalent, preservative free Dr. Micah Díaz DO Work Phone: [facility] 12-21-2021 influenza virus vacc ine, unspecified formulation Screen Wstr [facility] 07-26-2021 Covid (Pfizer) Dr. Micah hahn DO Work Phone: [facility] 01-17-2021 Covid (Pfizer) Dr. Micah hahn DO Work Phone: [facility] 12-25-2020 influenza, high-dose , quadrivalent vaccine (FLUZONE HIGH DOSE QUADRIVALENT) Roxane Pineda MD Work Phone: [facility] 06-07-2020 Covid (Pfizer) Dr. Micah hahn DO Work Phone: [facility] 05-19-2020 Covid (Pfizer) Dr. Micah hahn DO Work Phone: [facility] 01-15-2019 Seasonal trivalent influenza vaccine, adjuvanted, preservative free Dr. Micah Díaz DO Work Phone: [facility] 10-27-2010 pneumococcal polysaccharide vaccine, 23 valent Roxane Pineda MD Work Phone: [facility] Payers Date Payer Category Payer Self-pay [id number] 2017 Private Health Insurance [employer] MEDICARE SUPPLEMENT [id number] 2017-Present [phone] [address] [address] [place] [address] Indemnity [id number] 2017 Private Health Insurance [id number] 2017 Private Health Insurance [facility] [id number] 2011 Unknown [id number] 2009 Medicare MEDICARE MEDICAR E A AND B [id number] 2009-Present [phone] [place] [address] Medicare [id number] 2009 Medicare MEDICARE MEDICAR E A AND B [id number] 2009-Present [phone] [place] [address] Medicare [id number] 2009 Medicare [id number] Unknown [id number] Unknown [id number] Unknown [id number] Unknown [id number] Unknown [id number] Unknown [id number] Unknown [id number] Unknown [id number] Unknown [id number] Unknown [id number] Unknown [id number] .[id number] Unknown [id number] 2.16.840.1.879448.3.579 .2.462 Unknown [id number] 2.16.840.1.772573.3.579 .2.462 Unknown [id number] 2.16.840.1.348590.3.579 .2.462 Unknown [id number] 2.16.840.1.664157.3.579 .2.462 Unknown [id number] 2.16.840.1.543788.3.579 .2.462 Unknown [id number] 2.16840.1.198824.3.579 .2.462 Unknown [id number] 2.16.840.1.744016.3.579 .2.462 Unknown [id number] 2.840.1.720874.3.579 .2.462 Unknown [id number] 2.840.1.320804.3.579 .2.462 Unknown [id number] 2.840.1.436913.3.579 .2.462 Unknown [id number] 2.840.1.240610.3.579 .2.462 Unknown [id number] 2.840.1.980518.3.579 .2.462 Unknown [id number] 2.840.1.845737.3.579 .2.462 Unknown [id number] 2.840.1.236554.3.579 .2.462 Unknown [id number] 2.840.1.982731.3.579 .2.462 Unknown [id number] 2.16840.1.629976.3.579 .2.462 Unknown [id number] 2.16840.1.747853.3.579 .2.462 Unknown [id number] 2.16840.1.409949.3.579 .2.462 Unknown [id number] 2.16.840.1.535863.3.579 .2.462 Unknown [id number] 2.16840.1.119701.3.579 .2.462 Unknown [id number] 2.16.840.1.426473.3.579 .2.462 Social History Date Type Detail Facility Start: 10-22-2010 End: 02-13-2025 Tobacco smoking status NHIS Never smoked tobacco [facility] Work Phone: Start: 07-24-2021 End: 05-18-2024 Alcohol intake Current drinker of alcohol (finding) [facility] Start: 04-01-2019 History SDOH Alcohol Frequency 2 [facility] Start: 04-01-2019 History SDOH Alcohol Std Drinks 1 [facility] Start: 02-24-2018 History SDOH Alcohol Comment Socially [facility] Start: 04-01-2019 History SDOH Social Connections Phone 5 [facility] Start: 04-01-2019 History SDOH Social Connections Get Together 4 [facility] Start: 04-01-2019 History SDOH Physica l Activity DPW 0 [facility] Start: 1945 Sex Assigned At Not on file C [facility] Start: 05-08-2021 End: 04-25-2023 Tobacco smoking status NHIS Unknown if ever smoked [facility] Start: 1945 Sex Assigned At Female W [facility] Start: 10-22-2010 End: 12-26-2021 Tobacco use and exposure Smokeless tobacco non-user [facility] Start: 11-30-2021 End: 12-10-2021 Exposure to SARS-CoV-2 (event) Not sure [facility] Start: 04-01-2019 End: 05-18-2024 History of Social function [facility] Start: 04-01-2019 End: 05-18-2024 Social connection and isolation panel [facility] Do you belong to any clubs or organizations such as confucianism groups, unions, fraternal or athletic groups, or school groups? Yes [facility] Are you now , , , , never or living with a partner? [facility] How often to you hav e a drink containing alcohol? Monthly or less [facility] How many standard dr inks containing alcohol do you have on a typical day? 1 or 2 [facility] How often do you hav e 6 or more drinks on 1 occasion? Never [facility] How hard is it for y ou to pay for the very basics like food, housing, medical care, and heating Not very hard [facility] Do you feel stress - tense, restless, nervous, or anxious, or unable to sleep at night because your mind is troubled all the time - these days [OSQ] Not at all [facility] (I/We) worried wheth er (my/our) food would run out before (I/we) got money to buy more. Never true [facility] In the past 12 month s, has lack of transportation kept you from medical appointments or from getting medications? No [facility] Start: 06-29-2024 End: 07-27-2024 Sex Female (finding) [facility] Medical Equipment Procedure Code Equipment Code Equipment Original Text Equipment Identifier Dates Valve Aort 23mm C-E P[facility] - [id number] Start: 10-23-2010 Comment on above: Description: CE 2700 -23mm used for aortic valve replacement Mesh Srg [employer] a [employer] Strl Ppro [id number] Start: 12-10-2021 Sling Desara Cornelius e Bx/5 [id number] Start: 12-10-2021 Goals Date Patient Goal Desired Activity /State Functional Status Date Assessment Result Facility 02-15-2025 Functional status Independent [facility] Work Phone: 02-14-2025 Functional status Tolerates Activity Well [facility] Work Phone: Mental Status Date Assessment Result Facility 02-15-2025 Cognitive function Voice/Name [facility] Work Phone: Clinical Notes 10-23-2010 to 02-15-2025 Note Date & Type Note Facility 02-15-2025 Note [facility] 02-02-2025 Progress note [facility] 01-26-2025 Progress note [facility] 01-20-2025 Progress note [facility] 01-19-2025 Discharge summary Note Date/Time January 19, 2025 5:17pm [facility] [address] [place] [address]. [address] [place] [address] / REHABILITATION SERVICES DISCHARGE SUMMARY MR#: [id number] Acct: [id number] Name: FABRICE MOON Rep #: [id number] [...] please feel free to call me at [phone]. Thank you for the referral of thispatient. Sincerely, SPENCER Grajeda Balance/Gait/Functional tests Balance/Special Test Scores Lower Extremity Functional Score: 46 Improvement % Improvement: 65 <Electronically signed by Maryana Guerrero MPT> 01/19/25 1387 CC: ANKIT Medeiros; Dr. Micah Díaz, DO ~ Signed [facility] Work Phone: 1(578) 435-210510-08-2025 Discharge summary [facility] [address] [place] [address] / REHABILITATION SERVICES DISCHARGE SUMMARY MR#: [id number] Acct: [id number] Name: FABRICE MOON Rep #: [id number] : 1945 79 From: Maryana Guerrero MP T Referring Dr.: ANKIT eMdeiros Status : REG RCR Insurance: MEDICARE PART [...] please feel free to call me at [phone]. Thank you for the referral of thispatient. Sincerely, Maryana Guerrero, MPT Balance/Gait/Functional tests Balance/Special Test Scores Lower Extremity Functional Score: 46 Improvement % Improvement: 65 01/19/25 1235 CC: DPBrigitte Medeiros; Dr. Micah Díaz, DO ~ Signed [facility]08-26-2025 Progress note Author Lynn Christensen [facility] Note Date/Time December 07, 2024 9: 05pm [facility] [address] [place] [address], [address] [place] [address] OFFICE VISIT Date of Service: 12/07/24 MR#: [id number] Acct: [id number] Name: FABRICE MOON Rep #: [id number] : 1945 Provider: Dr. 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 Is patient in pain?: No Allergies amitriptyline (From Elavil) Adverse Reaction (Severe, Verified 07/20/24 11:38) Unknown tramadol Adverse Reaction (Severe, Verified 07/20/24 11:38) Unknown valdecoxib (From Bextra) Adverse Reaction (Severe, Verified 07/20/24 11:38) Unknown amlodipine Adverse Reaction (Intermediate, Verified 07/20/24 11:38) Foot and ankle edema Have you fallen in the past year?: No [facility] Medical History PAF (paroxysmal atrial fibrillation) [...] healthy appearing, comfortable and no acute distress HENWA Head: normocephalic and atraumatic Ears: hearing grossly [...] you fallen in the past year?: No 12/07/24 7355 > Date _ [place]ley Cortes Signature: Date (if applicable) CC: ~ [facility]08-26-2025 Evaluation note* Diagnosis Onset Date Resolution Status Admit Date Nocturia acute December 07, 2 025 2:44pm Urge incontinence acute December 07, 2024 2:44pm [facility] Work Phone: 1([phone]) 947-544208-26-2025 Evaluation note* Diagnosis Onset Date Resolution Status Admit Date Nocturia acute December 07, 025 2:44pm Urge incontinence acute December 07, 2024 2:44pm Nocturia acute December 15, 2024 10:58am Urge incontinence acute Septemb er 2024 10:58am [facility] Work Phone: 1([phone] 555-740108-26-2025 Evaluation note* Diagnosis Onset Date Resolution Status Admit Date Nocturia acute December 07, 2 025 2:44pm Urge incontinence acute December 07, 2024 2:44pm Nocturia acute December 15, 2024 10:58am Urge incontinence acute Septemb er 2024 10:58am Nocturia acute December 10:50am Urge incontinence acute Septemb er 2024 10:50am [facility] Work Phone: 1([phone]) 269-830708-26-2025 Evaluation note* Diagnosis Onset Date Resolution Status Admit Date Nocturia acute December 07, 025 2:44pm Urge incontinence acute December 07, 2024 2:44pm Nocturia acute December 15, 2024 10:58am Urge incontinence acute Septemb er 2024 10:58am Nocturia acute December 10:50am Urge incontinence acute Septemb er 2024 10:50am Nocturia acute December 11:15am Urge incontinence acute Septemb er 2024 11:15am [facility] Work Phone: 1([phone]) 908-685508-26-2025 Evaluation note* Diagnosis Onset Date Resolution Status [...] Urge incontinence acute Septemb er 2024 10:50am [facility] Work Phone: [phone]) 303-234008-26-2025 Evaluation note* Diagnosis Onset Date Resolution Status [...] Urge incontinence acute January 12, 2025 10:50am [facility] Work Phone: 1([phone]) 617-988008-26-2025 Evaluation note* Diagnosis Onset Date Resolution Status [...] 23, 2010 resolved January 20, 2025 10:56am [facility] [employer] Work Phone: 1([phone]) 527-417108-26-2025 Evaluation note* Diagnosis Onset Date Resolution Status Admit Date Nocturia acute December 07 2:44pm Urge incontinence acute December 07, 2024 [...] (urinary tract infection) acute February 02 10:49am [facility] Work Phone: 1([phone]) 263-442708-26-2025 Evaluation note* Diagnosis Onset Date Resolution Status Admit Date Nocturia acute December 07 2:44pm Urge incontinence acute December 07, 2024 [...] (urinary tract infection) acute February 02 10:49am Essential hypertension acute No [id number] 5:51pm Fatigue acute February 13, 2025 5:51pm Frequent PVCs acute February 5:51pm PAF (paroxysmal atrial fibrillation) acute February 13 5:51pm Chest pain resolved February 13, 2025 5:51pm History of aortic valve replacement with bioprosthetic valve October 23, 2010 resolved February 5:51pm UTI (urinary tract infection) acute February 21 3:31pm [facility] Work Phone: [phone]) [phone] Evaluation note* Diagnosis Onset Date Resolution Status Admit Date Essential hypertension acute Ap 2024 11:18am PAF (paroxysmal atrial fibrillation) acute July 20, 2024 11:18am Hyperlipidemia chronic July 20, 2024 11:18am History of aortic valve replacement with bioprosthetic valve October 23, 2010 resolved July 20, 2 025 11:18am [facility] Work Phone: 1([phone]) 827-941702-25-2025 Discharge summary Author Jamal Glover [facility] Note Date/Time June 08, 2024 6:00pm [facility] [address] [place] [address] / REHABILITATION SERVICES DISCHARGE SUMMARY MR#: [id number] Acct: [id number] Name: FABRICE MOON Rep #: [id number] [...] please feel free to call me at [phone]. Thank you for the referral of thispatient. Sincerely, Jamal Glover PT, Cert T, OCS Balance/Gait/Functional tests Balance/Special Test Scores Oswestry Low Back Score: 29 Improvement % Improvement: 20 <Electronically signed by Lakshmi Cullen PT. JAMES, OCS> 07/27/24 0810 CC: Dr. Rene Lomax MD; Dr. Micah Díaz, DO ~ JLA Signed [facility] Work Phone: [phone]) 534-470002-25-2025 Discharge summary [facility] [address] [place] [address] [address] [place] [id number] / REHABILITATION SERVICES DISCHARGE SUMMARY MR#: [id number] Acct: [id number] Name: FABRICE MOON Rep #: [id number] : 1945 78 From: Cert. JAMES Ramsey, OCS Referring Dr.: Dr. Rene Lomax MD [...] please feel free to call me at [phone]. Thank you for the referral of thispatient. Sincerely, Jamal Glover, PT, Cert MDT, OCS Balance/Gait/Functional tests Balance/Special Test Scores Oswestry Low Back Score: 29 Improvement % Improvement: 20 07/27/24 0810 CC: Dr. Rene Lomax MD; Dr. Micah Díaz, DO ~ JLA Signed [facility]02-05-2025 History of Present illness Narrative* Ines Ortiz [...] PATIENT PRESENTS WITH AN IMPLANTABLE OR ATTACHED PATIENT CARRIER: No RADIOLOGY DEPARTMENT: Mammography PERIPHERAL IV DATA: Not applicable SIGNED BY: Parag Krishna May 19, 2024 1:40 PM documented in [facility] encounter[facility]02-[facility]-2025 NoteHNO ID: [id number] Author: INES ORTIZ Mammo Tech Service: ? Author Type: Seed Specialist Type: Progress Notes Filed: 05/19/2024 13:41 Note [...] PATIENT PRESENTS WITH AN IMPLANTABLE OR ATTACHED PATIENT CARRIER: No RADIOLOGY DEPARTMENT: Mammography PERIPHERAL IV DATA: Not applicable SIGNED BY: Parag Krishna May 19, 2024 1:40 [facility]02-04-2025 NoteHNO ID: [id number] Author: CASSY ZUNIGA MD Service: ? Author Type: Physician Type: Progress Notes Filed: 05/18/2024 14:25 Note Text: Jennifer is a 78 year old who presents for an annual gynecologic exam with complaints, OAB, sees Dr. Christensen for urogyn. . Postmenopausal: yes HLast mammogram: 2022 normal OB History T2 L2 SAB0 IAB0 Ectopic0 Multiple0 Live Births0 Director Market Research History LMP: Hysterectomy Age at Menarche: Age at First : Age at Menopause: 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 As applicable, any other physician, advance practice provider, medical student, or other health professional student that will be observing or involved in the sensitive examination for educational or training purposes was discussed with the Patient or Authorized Paper Winder. The Patient or Authorized Paper Winder has agreed to proceed with the sensitive [...] external genitalia normal, normal Bartholin's glands, urethra, [place]'s glands, no vulvar lesions, good vaginal support, physiologic discharge present, normal appearing perineal body and perianal region, cervix surgically absent BIMANUAL: no adnexal masses, non-tender, and uterus surgically absent RECTOVAGINAL: deferred. ASSESSMENT/PLAN: 1) Health maintenance: Pap/HPV screening no longer needed Mammogram ordered no need for annual exams. f/u PRN 2) Follow up one year or sooner as needed Cassy Zuniga [facility]02-04-2025 History of Present illness Narrative* Cassy Zuniga MD - 05/18/2024 1:48 PM EST Jennifer is a 78 year old who presents for an annual gynecologic exam with complaints, OAB, sees Dr. Christensen for urogyn. . Postmenopausal: yes HLast mammogram: 2022 normal OB History T2 L2 SAB0 IAB0 Ectopic0 Multiple0 Live Births0 Director Market Research History LMP: Hysterectomy Age at Menarche: Age at First : Age at Menopause: Director Market Research History Comments: Sexual Activity: Not Currently; No [...] 04/15 VERT SEG LUMBAR 04/14/1981 Laminectomy, lumbar LAPAROSCOPIC [...] discussed with the Patient or Patient's Authorized Paper Winder. As applicable, any other physician, advance practice provider, medical student, or other health professional student that will be observing or involved in the sensitive examination for educational or training purposes was discussed with the Patient or Authorized Paper Winder. The Patient or Authorized Paper Winder has agreed to proceed with the sensitive [...] external genitalia normal, normal Bartholin's glands, urethra, [place]'s glands, no vulvar lesions, good vaginal support, [...] needed Cassy Zuniga MD documented [facility]12-[facility]24 Telephone encounter Note * Telephone Encounter - Bhumi Beavers RN - 03/29/2024 10:16 AM EST Pt notified and prefers to schedule pelvic/breast exam with RR since she has not been seen since 2020. Appt scheduled with RR 05/03/24. Bhumi Beavers RN [facility]12-16-2024 Miscellaneous Notes* Telephone Encounter - Bhumi Beavers RN - 03/29/2024 10:16 AM EST Pt notified and prefers to schedule pelvic/breast exam with RR since she has not been seen since 2020. Appt scheduled with RR 05/03/24. Bhumi Beavers RN * Telephone Encounter - Cassy Zuniga [...] Pelvic/breast exam please scheduel (any 20 min measurer slot) Cassy Irvin MD * Telephone Encounter [...] Friday. Em Gusman RN documented in this encounterP[facility] Hospital12-16-2024 Telephone encounter Note * Telephone Encounter - [...] or she wants a Pelvic/breast exam please vicuel (any 20 min measurer slot) Cassy Irvin MD [facility]12-13-2024 Telephone encounter Note* Telephone Encounter - Em [...] of office until Friday. Em Gusman RN [facility]01-08-2024 History of Present illness Narrative* Erica Hanson, RT(R) - 04/21/2023 8:50 AM EST Radiology [...] 21, 2023 8:50 AM documented in this encounterPomerene Hospital12-22-2023 Miscellaneous Notes* Letter - Coordinator, Mammography - 04/04/2023 9:25 AM EST April 04, 2023 PID: [id number] Fabrice Moon [address] [place] [id number] Dear Ms. Moon, We are pleased to [...] report will be kept on [facility] as part of your permanent medical record and are available for your continuing care. Thank you for allowing us to help in meeting your health care needs. Sincerely, Dr. Wilks Interpreting Radiologist [facility] (Normal over 40) documented in this encounterPomerene Hospital12-18-2023 Telephone encounter Note * Telephone Encounter - Margret Paris RN - 03/31/2023 2:12 PM EST Please contact patient to schedule mammogram and annual. Margret Alma, RN [facility]12-18-2023 Miscellaneous Notes* Telephone Encounter - Margret Paris [...] schedule. Review and advise. documented in this encounterPomerene Hospital12-18-2023 Telephone encounter Note * Telephone Encounter - Margret Paris RN - 03/31/2023 1:51 PM EST Mammogram pended. Will have patient schedule annual as well. MARGRET PARIS RN [facility]12-18-2023 Telephone encounter Note* Telephone Encounter - Laurie Yeager - 03/31/2023 12:20 PM EST Patient verified by name and . She is requesting an Mammogram screening order be placed for her to schedule. Review and advise. [facility]09-12-2023 Procedure [facility]09-12-2023 Procedure [facility]08-21-2023 History and physical note Author Angel Gurinder [facility] December 02, 2022 3:35pm Note Date/Time December 01, 2022 8: 54am [facility] Medical Records Department [address] [place] [address] History & Physical Exam 12/01/22 0852 MR#: [id number] Acct: [id number] Name: FABRICE MOON Rep #:[id number] : 1945 77 From: Angel Fairchild MD PCP: Dr. Micah Díaz, DO Status:PRE [facility] History and Physical Date of Admission: 12/24/22 FABRICE MOON, is a 77 F who presents to the label maker today for a cardioversion. 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 Is patient in pain?: No Allergies amitriptyline [From Elavil] Adverse Reaction (Severe, Verified 10/03/22 09:50) Unknown tramadol Adverse Reaction (Severe, Verified 10/03/22 09:50) Unknown valdecoxib [From Bextra] Adverse Reaction (Severe, Verified 10/03/22 09:50) Unknown amlodipine Adverse Reaction (Intermediate, Verified 10/03/22 09:50) Foot and ankle edema Medications See EMR [facility] Medical History (Updated 10/03/22 @ 10:58 by Ileana Beltrán PA, PA) Bicuspid aortic valve Fibromyalgia Hyperlipidemia Hypothyroidism [...] fibrillation: Status: Acute Plan: She has a YKC5IW1-QIAl score of 3. She was started on [...] Fairchild MD; Dr. Micah Díaz DO~ Signed [facility] Work Phone: 1(654) 534-220412-14-2022 NoteHNO ID: [id number] Author: Roxane Pineda MD Service: ? Author [...] kg/m? ASSESSMENT/PLAN: (N39.41) Urge incontinence (primary encounter diagnosis)[facility]12-13-2022 Miscellaneous Notes* Letter - Mammography Coordinator - 03/26/2022 11:57 AM EST March 26, 2022 PID: [id number] Fabrice Moon [facility] [place] [address] Dear Ab Moon, We are pleased to inform you [...] report will be kept [facility] as part of your permanent medical record and are available for your continuing care. Thank you for allowing us to help in meeting your health care needs. Sincerely, Dr. Galdamez Interpreting Radiologist [facility] (Normal over 40) documented in this encounterPomerene Hospital12-12-2022 History of Present illness Narrative* Michelle Portillo [...] 25, 2022 11:07 AM documented in this encounterPomerene Hospital12-09-2022 Miscellaneous Notes* Telephone Encounter - Cassy Zuniga MD - 03/22/2022 11:42 AM EST order placed. Cassy Zuniga MD * Telephone Encounter - Ghislaine Ibrahim - 03/22/2022 10:[address] order for mammography and route to schedulers so we may call patient back to arrange appointment. documented in this encounterPomerene Hospital10-27-2022 Miscellaneous Notes* Telephone Encounter - Shayy Hadley Cma - 02/07/2022 11:24 AM EDT Pt does not have a email or computer offered an in person denied it will wait till March/ * Telephone Encounter - Roxane Pineda MD [...] decline MAXIMINO appointment due to living in [place], and has no transportation Yesenia Herrera Cma documented in this encounterPomerene Hospital09-21-2022 Miscellaneous Notes* Addendum Note - Roxane Pineda [...] 12/26. Sveta Quintero RN documented in this encounterPomerene Hospital09-14-2022 NoteHNO ID: [id number] Author: Roxane Pineda MD Service: ? Author [...] SCAN (N99.3) [facility] 12-[facility]2021 Miscellaneous Notes* Telephone Encounter - Austin [...] advise? Austin Mitchell Ma documented in this encounterPomerene Hospital08-29-2022 NoteHNO ID: [id number] Author: Juany Soares APRN.MAGAZINE PUBLISHER Service: Anesthesiology Author Type: Nurse Manager Inventory Control Type: Anesthesia Procedure Notes Filed: 12/10/2021 3:20 PM Note Text: ANESTHESIOLOGY PROCEDURE NOTE Airway General Information Procedure Start Time/Medication Administration: 12/10/2021 2:18 PM Patient location during procedure: OR Timeout Performed Pre-procedure: timeout performed Consent Obtained: Yes Patient identity confirmed: arm band and patient Staffing Anesthesiologist: Abilio Scherer MD MAGAZINE PUBLISHER: Juany Soares APRN.MAGAZINE PUBLISHER Performed by: anesthesiologist Indications and Patient Condition [...] 1 Airway not difficult SIGNATURE: Juany Soares APRN.MAGAZINE PUBLISHER PATIENT NAME: Fabrice Moon DATE: December 10, 2021 TIME: 3:17 PM CSN: [id number]022 Miscellaneous Notes* Telephone Encounter - Austin Mitchell [...] Advise Roz Chand MA documented in this encounterPomerene Hospital08-01-2022 Miscellaneous Notes* Telephone Encounter - Roxane Pineda [...] 11/13/21 Thank you, Malgorzata documented in this encounterPomerene Hospital06-16-2022 Miscellaneous Notes* Telephone Encounter - Roz Chand MA - 09/27/2021 1:23 PM EDT Called Erin Ho (sister) to navigate her make an account with [employer] in order for Fabrice to received her medication thru mail order. If she has any issues she would need to contact Micah Suarez [employer] at [phone]. The pharmacy already have the prescription in their system, that have been confirmed by myself. Roz Chand MA * Telephone Encounter - Natty Marcial Cma - 09/27/2021 10:26 AM EDT Patient healthcare analyst called stated the script for tolterodine that was called in to [facility], Erin stated that Patients account information was needed to help with the script, I have advised caregiver that the script was called in already, Account [facility], id # [id number] Natty Marcial Cma documented in this encounterP[facility]06-[facility]22 NoteHNO ID: [id number] Author: Roxane Pineda MD Service: ? Author [...] laparoscopic sacrocolpopexy, mid urethra (more content not included)...[facility]06-15-2022 NoteHNO ID: [id number] Author: Uri Capone RN Service: ? Author Type: Registered Nurse Type: Progress Notes Filed: 09/30/2021 8:22 AM Note Text: Fabrice Moon [id number] 1945 September [birth year], 2021 Diagnoses: Stress urinary [...] MD September 30, 2021 cc: Roxane Pineda [facility]06-15-2022 History of Present illness Narrative* Roxane [...] and possible posterior repair. documented in this encounterPomerene Hospital06-[facility]22 History of Present illness Narrative* Uri Capone RN - 09/26/2021 12:05 PM EDT Fabrice Moon [id number] 1945 September 26, 2021 Diagnoses: Stress urinary [...] cc: Roxane Pineda MD documented in this encounterPomerene Hospital06-15-2022 Instructions* Patient Instructions* Uri Capone RN - 09/26/2021 9:31 AM EDT POST PROCEDURE INSTRUCTIONS Fabrice Moon September 26, 2021 Increase your fluid intake. FOLLOW UP APPOINTMENT: 09/26/21 at 1:45 pm with Roxane Pineda MD in the [address] [place] [address] office. WHEN TO CALL THE DOCTOR: If you develop fever (over 101 degrees) or chills. If you cannot urinate or empty your bladder. If you develop symptoms of a urinary tract infection such as burning or pain with urination, increased frequency of urination or foul smelling urine If you have any other questions or problems. Office phone number; [phone] documented in this encounterPomerene Hospital04-12-2022 NoteHNO ID: [id number] Author: Roxane Pineda MD Service: ? Author [...] Colonoscopy - EGD TR (more content not included)...[facility]04-12-2022 History of Present illness Narrative* Roxane Pineda [...] 1/2 VERT SEG LUMBAR 04/14/1981 Laminectomy, lumbar LIG/TRNSXJ [...] plan follow-up after urodynamics. documented in this encounterPomerene Hospital07-14-2011 History of Past illness Narrative* Problem Noted Date Resolved Date Thrombocytopenia 10/25/2010 10/27/2010 Overview: Plt 1194 K, no evidence of bleeding. continue asa HTN (hypertension) 10/23/2010 10/24/2010 Overview: 10/24/2010 able to titrate off nitroprusside , orthostatic hypotension with transfer to chair-IV fluid replacement Pre-op testing 10/22/2010 10/24/2010 Overview: Images from the original note were not included. HEART and VASCULAR TAIBAN PRE-OP CHECKLIST Surgeon: Manolo Perera M.D. Informed [...] of this encounter (statuses as of 07/24/2021) [facility] History of Past illness Narrative* Problem Noted Date Resolved Date Thrombocytopenia 10/25/2010 10/27/2010 Overview: Plt 1194 K, no evidence of bleeding. continue asa HTN (hypertension) 10/23/2010 10/24/2010 Overview: 10/24/2010 able to titrate off nitroprusside , orthostatic hypotension with transfer to chair-IV fluid replacement Pre-op testing 10/22/2010 10/24/2010 Overview: Images from the original note were not included. HEART and VASCULAR TAIBAN PRE-OP CHECKLIST Surgeon: Manolo Perera M.D. Informed [...] of this encounter (statuses as of 09/20/2021) [facility] History of Past illness Narrative* Problem Noted [...] of this encounter (statuses as of 09/26/2021) [facility] of [facility] illness Narrative* Problem Noted [...] of this encounter (statuses as of 09/26/2021) [facility] illness Narrative* Problem Noted [...] of this encounter (statuses as of 09/27/2021) [facility] of [facility] illness Narrative* Problem Noted [...] of this encounter (statuses as of 10/13/2021) [facility] of [facility] illness Narrative* Problem Noted Date Resolved Date Thrombocytopenia 10/25/2010 10/27/2010 Overview: Plt 1194 K, no evidence of bleeding. continue asa HTN (hypertension) 10/23/2010 10/24/2010 Overview: 10/24/2010 able to titrate off nitroprusside , orthostatic hypotension with transfer to chair-IV fluid replacement Pre-op testing 10/22/2010 10/24/2010 Overview: Images from the original note were not included. HEART and VASCULAR TAIBAN PRE-OP CHECKLIST Surgeon: Manolo Perera M.D. Informed [...] of this encounter (statuses as of 11/12/2021) [facility] of Past illness Narrative* Problem Noted Date Resolved Date Thrombocytopenia 10/25/2010 10/27/2010 Overview: Plt 1194 K, no evidence of bleeding. continue asa HTN (hypertension) 10/23/2010 10/24/2010 Overview: 10/24/2010 able to titrate off nitroprusside , orthostatic hypotension with transfer to chair-IV fluid replacement Pre-op testing 10/22/2010 10/24/2010 Overview: Images from the original note were not included. HEART and VASCULAR TAIBAN PRE-OP CHECKLIST Surgeon: Manolo Perera M.D. Informed [...] of this encounter (statuses as of 11/13/2021) [facility] illness Narrative* Problem Noted [...] of this encounter (statuses as of 12/18/2021) [facility] illness Narrative* Problem Noted [...] of this encounter (statuses as of 01/02/2022) [facility] illness Narrative* Problem Noted Date Resolved Date Thrombocytopenia 10/25/2010 10/27/2010 Overview: Plt 1194 K, no evidence of bleeding. continue asa Pre-op testing 10/22/2010 10/24/2010 Overview: Images from the original note were not included. HEART and VASCULAR TAIBAN PRE-OP CHECKLIST Surgeon: Manolo Perera M.D. Informed [...] of this encounter (statuses as of 02/07/2022) [facility] of [facility] illness Narrative* Problem Noted Date Resolved Date Thrombocytopenia 10/25/2010 10/27/2010 Overview: Plt 1194 K, no evidence of bleeding. continue asa Pre-op testing 10/22/2010 10/24/2010 Overview: Images from the original note were not included. [facility] and VASCULAR TAIBAN PRE-OP CHECKLIST Surgeon: Manolo Perera M.D. 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 October 23, 2010 resolved [facility] Work Phone: 1(113) 467-825107-12-2011 Evaluation note* Diagnosis Onset Date Resolution Status Chest pain acute Essential hypertension acute Hyperlipidemia chronic History of aortic valve repl acement with bioprosthetic valve October 23, 2010 resolved [facility] Work Phone: 1(227) 256-634807-12-2011 Evaluation note* Diagnosis Onset Date Resolution Status Essential hypertension acute New onset atrial fibrillation acute Hyperlipidemia chronic History of aortic valve repl acement with bioprosthetic valve October 23, 2010 resolved [facility] Work Phone: 1(428) 130-953007-12-2011 Evaluation note* Diagnosis Onset Date Resolution Status Essential hypertension acute PAF (paroxysmal atrial fibrillation) acute Hyperlipidemia chronic History of aortic valve repl acement with bioprosthetic valve October 23, 2010 resolved [facility] Work Phone: Evaluation note* Diagnosis Vaginal enterocele- Primary Vaginal enterocele, congenital or acquired Urge incontinence Urgency of urination Rectocele documented in this encounter [facility] noteNo assessment information availableWSelect [facility] Work Phone: Evaluation note* Diagnosis Urge incontinence- Primary documented in this encounter [facility]* Diagnosis Urgency of urination- Primary documented in this encounter [facility]* Diagnosis Prolapse of vaginal vault after hysterectomy- Primary Stress incontinence Female stress incontinence Rectocele documented in this encounter [facility]* Diagnosis Urgency of urination- Primary Prolapse of vaginal vault after hysterectomy Stress incontinence Female stress incontinence Rectocele Prolapse of vaginal vault after hysterectomy Stress incontinence Female stress incontinence Rectocele Stress incontinence, female Female stress incontinence documented in this encounter [facility]* Diagnosis Urgency of urination- Primary documented in this encounter [facility]* Diagnosis Encounter for screening mammogram for malignant neoplasm of breast- Primary Other screening mammogram [facility]* Diagnosis Encounter for screening mammogram for malignant neoplasm of breast Other screening mammogram documented in this encounter [facility]* Diagnosis Encounter for screening mammogram for malignant neoplasm of breast- Primary Other screening mammogram Encounter for screening mammogram for malignant neoplasm of breast Other screening mammogram documented [facility] this [facility]* Diagnosis Left wrist pain Pain in joint, forearm [facility] Diagnosis Encounter for screening mammogram for malignant neoplasm of breast- Primary Other screening mammogram [facility]* Diagnosis Encounter for gynecological examination (general) (routine) without abnormal findings- Primary Encounter for screening mammogram for breast cancer documented in this encounter [facility]* Diagnosis Encounter for gynecological examination (general) (routine) without abnormal findings Encounter for screening mammogram for breast cancer documented in this encounter [facility] HospitalProgress note Author Ileana Beltrán [facility] Note Date/Time January 20, 2025 11 :50am [facility] 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 [facility] Medical History PAF (paroxysmal atrial fibrillation) [...] 3RF To apixaban (Eliquis) Pts phone number [phone] Faxed to [facility] 5 mg PO BID 180 tabs [...] at this time. 5. Pure hypercholesterolemia: 6. [facility] (current) use of anticoagulants: - Maintained on apixaban 5 mg twice daily. - Refilled prescription and faxed order to [facility] per patient?s request. - Reiterated importance of continued anticoagulation for stroke prevention givenatrial fibrillation history. Plan Details Follow Up: 6 Months (MMM) 1 Year (VENDETTE) Coding Level of Care Code Off vis,est,level [...] applicable) CC: Dr. Micah Díaz, DO ~ [facility] Work Phone: Progrxnk note Author Lynn Christensen [facility] Note Date/Time January 26, 2025 1 1:38am [facility] [address] [place] [address], [address] [place] [id number] OFFICE VISIT Date of Service: 01/26/25 MR#: [id number] Acct: [id number] Name: FABRICE MOON Rep #: [id number] : 1945 Provider: Dr. 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 Is patient in pain?: No [...] PO BID #180 tabs 1 01/26/25 Rx ghfr-G64-fizvyrip intramuscular ea IM 01/20/25 5 History trazodone 100 mg tablet 100 mg PO QHS 01/20/2501/26 History Have you fallen in the past year?: No [facility] Medical History PAF (paroxysmal atrial fibrillation) [...] Aller/Imm Allergy/Immunologic: No itchy eyes or wheezing Eavn/Lymp Hematologic/Lymphatic: No easy bleeding, easy bruising or enlarged lymph nodes Exam Const General: cooperative, healthy appearing, comfortable and no acute distress [facility] Head: normocephalic and atraumatic Ears: hearing [...] fallen in the past year?: No 01/26/25 141 <Electronically signed by Lynn Christensen MD> Date _ Lynn Christensen MD Cosigner Signature: Date (if applicable) CC: ~ [facility] Work Phone: Progress note Author Lynn Christensen [facility] Note Date/Time February 02, 2025 1 2:33pm [facility] [address], [address] [place] [id number] OFFICE VISIT Date of Service: 02/02/25 MR#: [id number] Acct: [id number] Name: FABRICE MOON Rep #: [id number] : 1945 Provider: Dr. 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 Is patient in pain?: No [...] tablet 100 mg PO QDAY #90 tabs 11/2902/02/25 Rx levothyroxine 137 mcg tablet 112 mcg PO DAILY 01/07/23 02/02/25 History fesoterodine 4 mg tablet,extended 4 mg PO QDAY 4 02/02/25 History release 24 hr (Toviaz) cholecalciferol (vitamin D3) 50 4,000 unit PO QDAY 12/0602/02/25 History mcg (2,000 unit) tablet hydrocodone-acetaminophen 5-325mg 1 tab PO QHS PRN 12/0602/02/25 History 5mg-325mg spironolactone 25 mg tablet 25 mg PO DAILY #90 TABLETS 09/29/24 02/02/25 Rx metoprolol tartrate 25 mg tablet 12.5 mg (1/2 x 25 mg) PO BID dose 12/22/24 02/02/25 Rx has been decreased. #90 tabs vibegron 75 mg tablet (Gemtesa) 75 mg PO QDAY 12/29/24 02/02/25 History apixaban 5 mg tablet (Eliquis) 5 mg PO BID #180 tabs 1 02/02/25 Rx [id number]-[id number] intramuscular ea IM 01/20/25 5 History trazodone 100 mg tablet 100 mg PO QHS 01/20/2502/02 History Have you fallen in the past [...] healthy appearing, comfortable and no acute distress [facility] Head: normocephalic and atraumatic Ears: hearing [...] of urinary urgency, frequency and urge incontinence.?The needle electrode was inserted into the lower, [...] nerve was adjusted to a setting of 5. The voiding diary or patient's symptoms were reviewed prior the start of treatment.? Results POC UA Auto w/o Microscopy Office Urine Color YELLOW Last Edit by Tomasa Rodriguez on 02/02/25 11:25 Office Urine Clarity Last Edit by Tomasa Rodriguez on 02/02/25 11:25 Office Urine Glucose Negative Last Edit by Tomasa Rodriguez on 02/02/25 11:25 Office Urine Ketones Negative Last Edit by Tomasa Rodriguez on 02/02/25 11:25 Office Urine Bilirubin Negative Last Edit by Tomasa Rodriguez on 02/02/25 11:25 Office Urine Urobilinogen 0.2 mg/dL Last Edit by Tomasa Rodriguez on 02/02/25 11:25 Off Ur Spec Martin 1.015 Last Edit by Tomasa Rodriguez on 02/02/25 11:25 Office Urine pH 6 Last Edit by Tomasa Rodriguez on 02/02/25 11:25 Office Urine Protein Negative Last Edit by Tomasa Rodriguez on 02/02/25 11:25 Office Urine Blood Trace Last Edit by Tomasa Rodriguez on 02/02/25 11:25 Office Urine Blood Hemolyzed Last Edit by Tomasa Rodriguez on 02/02/25 11:25 Office Urine Nitrate Negative Last Edit by Tomasa Rodriguez on 02/02/25 11:25 Off Ur Leukocytes Negatve Last Edit by Tomasa Rodriguez on 02/02/25 11:25 Coding Level of Care Code No Charge Diagnoses UTI (urinary tract infection) N39.0 Nocturia R35.1 Urge incontinence N39.41 Assessment and Plan Assessment and Plan (1) UTI (urinary tract infection): Status: Acute (2) Nocturia: Status: Acute (3) Urge incontinence: Status: Acute Orders: Orders PTNS 02/02/25 N39.41 - Urge incontinence, R35.1 - Nocturia POC UA Auto w/o Microscopy 02/02/25 N39.0 - Urinary tract infection, site not specified Plan continue level one management continue PTNS treatments per protocol continue Gemtesa and Toviaz Plan Details Follow Up: 2 Weeks (PTNS) Clinical Quality Measures Falls Risk Screening/Assistive Devices Have you fallen in the past year?: No 02/03/25 0933 <Electronically signed by Lynn Christensen MD> Date _ Lynn Christensen MD Cosigner Signature: Date (if applicable) CC: ~ [facility] Work Phone: Reason for referral (narrative)* Outpatient Procedure (Routine) - Pending Review Specialty Diagnoses / Procedures Referred By Ben garcia Referred To Contact [facility] Diagnoses Urge incontinence Procedures URODYNAMICS DEO POST-VOIDING RESIDUAL URINE&/BLADDER CAP Roxane Pineda MD [address] [place] [address] [address] Referral ID Status Reason Start Date Expiration Date Visits Requested Visits Authorized [id number] Pending Review Auto-Generat ed Referral 09/20/2021 09/20/2022 1 1 [facility] for referral (narrative)* Diagnostic Procedure Only (Routine) - Authorized Specialty Diagnoses / Procedures Referred By Ben garcia Referred To Contact [facility] Diagnoses Encounter for screening mammogram for malignant neoplasm of breast Procedures KAJAL SCREENING SCREENING MAMMOGRAPHY BI 2-VIEW BREAST INC CAD Cassy Zuniga MD [address] [place] [address] [facility] [address] [place] [id number] Referral ID Status Reason Start Date Expiration Date Visits Requested Visits Authorized [id number] Authorized Auto-Generat ed Referral 03/22/2022 04/21/2023 1 1 [facility] for referral (narrative)* Diagnostic Procedure Only (Routine) - Closed Specialty Diagnoses / Procedures Referred By Ben t Referred To Contact [facility] Diagnoses Encounter for screening mammogram for malignant neoplasm of breast Procedures KAJAL SCREENING SCREENING MAMMOGRAPHY BI 2-VIEW BREAST INC Cassy Walden MD [address] [place] [address] [facility] [address] [place] [address] Referral ID Status Reason Start Date Expiration Date V isits Requested Visits Authorized [id number] Closed Auto-Generate d Referral 03/22/2022 04/21/2023 1 1 [facility] for referral (narrative)* Diagnostic Procedure Only (Routine) - Closed Specialty Diagnoses / Procedures Referred By Ben garcia Referred To Contact [facility] Diagnoses Encounter for screening mammogram for malignant neoplasm of breast Procedures KAJAL SCREENING SCREENING MAMMOGRAPHY BI 2-VIEW BREAST INC Cassy Walden MD [address] [place] [address] [facility] [address] [place] [address] Referral ID Status Reason Start Date Expiration Date V isits Requested Visits Authorized [id number] Closed Auto-Generate d Referral 03/31/2023 04/29/2024 1 1 [facility] for referral (narrative)* Diagnostic Procedure Only (Urgent) - Closed Specialty Diagnoses / Procedures Referred By Ben t Referred To Contact [facility] Diagnoses Left wrist pain Procedures XR WRIST GENERAL 3V PA/LAT/OBL LEFT RADEX WRIST COMPLETE MINIMUM 3 VIEWS Saira Moore, ELHAM.STRAIGHTEDGE MACHINE OPERATOR HELPER [address] [place] [address] [facility] [id number] Referral ID Status Reason Start Date Expiration Date V isits Requested Visits Authorized [id number] Closed Auto-Generate d Referral 04/20/2023 05/19/2024 1 1 [facility] for referral (narrative)* Diagnostic Procedure Only (Routine) - New Request Specialty Diagnoses / Procedures Referred By Ben garcia Referred To Contact [facility] Diagnoses Encounter for screening mammogram for malignant neoplasm of breast Procedures KAJAL SCREENING SCREENING MAMMOGRAPHY BI 2-VIEW BREAST INC Cassy Walden MD [address] [place] [address] [facility] [address] [place] [address] Referral ID Status Reason Start Date Expiration Date Visits Requested Visits Authorized [id number] New Request Auto-Generat ed Referral 04/25/2025 1 1 [facility] for referral (narrative)* Diagnostic Procedure Only (Routine) - Authorized Specialty Diagnoses / Procedures Referred By Ben garcia Referred To Contact [facility] Diagnoses Encounter for gynecological examination (general) (routine) without abnormal findings Encounter for screening mammogram for breast cancer Procedures KAJAL SCREENING W SYBIL SCREENING DIGITAL BREAST TOMOSYNTHESIS BI SCREENING MAMMOGRAPHY BI 2-VIEW BREAST INC Cassy Walden MD [address] [place] [address] [facility] [address] [place] [phone] Referral ID Status Reason Start Date Expiration Date Visits Requested Visits Authorized [id number] Authorized Auto-Generat ed Referral 05/18/2024 06/17/2025 1 1 [facility] for referral (narrative)No reason for referral information availableWSelect [facility] Work Phone: Reason for visit Narrative* Diagnostic Procedure Only (Routine) - Closed Specialty Diagnoses / Procedures Referred By Contac t Referred To Contact [facility] Diagnoses Encounter for screening mammogram for malignant neoplasm of breast Procedures KAJAL SCREENING SCREENING MAMMOGRAPHY BI 2-VIEW BREAST INC CAD Cassy Zuniga MD [address] [place] [address] [facility] [address] [place] [address] Referral ID Status Reason Start Date Expiration Date V isits Requested Visits Authorized [id number] Closed Auto-Generate d Referral 03/22/2022 04/21/2023 1 1 [facility] for visit Narrative* Diagnostic Procedure Only (Urgent) - Closed Specialty Diagnoses / Procedures Referred By Ben t Referred To Contact [facility] Diagnoses Left wrist pain Procedures XR WRIST GENERAL 3V PA/LAT/OBL LEFT RADEX WRIST COMPLETE MINIMUM 3 VIEWS Saira Moore, TENSION WORKER.STRAIGHTEDGE MACHINE OPERATOR HELPER [address] [place] [address] [place] [address] Referral ID Status Reason Start Date Expiration Date V isits Requested Visits Authorized [id number] Closed Auto-Generate d Referral 04/20/2023 05/19/2024 1 1 [facility] for visit Narrative* Diagnostic Procedure Only (Routine) - Closed Specialty Diagnoses / Procedures Referred By Ben t Referred To Contact [facility] Diagnoses Encounter for gynecological examination (general) (routine) without abnormal findings Encounter for screening mammogram for breast cancer Procedures KAJAL SCREENING W SYBIL SCREENING DIGITAL BREAST TOMOSYNTHESIS BI SCREENING MAMMOGRAPHY BI 2-VIEW BREAST INC Cassy Walden MD [address] [place] [address] [facility] [address] [place] [address] Referral ID Status Reason Start Date Expiration Date V isits Requested Visits Authorized [id number] Closed Auto-Generate d Referral 05/18/2024 06/17/2025 1 1 [facility] Chief Complaint and Reason for Visit Chief Complaint 1 Y FU (MOVED FROM [facility]) CONGENITAL INSUF OF AORTIC VALVE BACK PAIN Reason for Visit Hyperlipidemia History of aortic valve replacement with bioprosthetic valve Chief Complaint BACK PAIN Chief Complaint 1 Y FU [facility] [facility] PELVIC FLOOR RX HERE CP, EVAL VALVE [...] 20, 2025 10:56am PAF (paroxysmal atrial fibrillation) Jan brandon2024 10:56am Hyperlipidemia January 20, 2025 10 :56am History of aortic valve repl acement with bioprosthetic valve January 20, 2025 10:56am Nocturia January 26, 2025 1 0:49am Urge incontinence January 26, 2025 1 0:49am Nocturia February 02, 2025 1 0:49am Urge incontinence February 02, 2025 1 0:49am UTI (urinary tract infection) February 022024 10:49am Chief Complaint Admit Date PTNS December 07, [...] 0:49am PTNS February 02, 2025 1 0:49am CHEST PAIN, SLIGHT ELEVATION IN TROPS No vember 2024 5:51pm CHEST PAIN, SLIGHT ELEVATION IN TROPS No vember 2024 1:42pm CHEST PAIN, SLIGHT ELEVATION IN TROPS No vember 2024 5:50pm CHEST PAIN, SLIGHT ELEVATION IN TROPS No vember 2024 12:46pm UTI/urine specimen February 21, 2025 3:31pm Reason for Visit Admit Date Nocturia December [...] UTI (urinary tract infection) February 022024 10:49am Essential hypertension February 13 5:51pm Fatigue February 13, 2025 5 :51pm Frequent PVCs February 13, 2025 5 :51pm PAF (paroxysmal atrial fibrillation) Nov ember 2024 5:51pm Chest pain February 13, 2025 5 :51pm History of aortic valve repl acement with bioprosthetic valve February 13, 2025 5:51pm UTI (urinary tract infection) February 122024 3:31pm Family History Relationship Condition Age at Onset Recorded Date/T [...] 6 mL Other Summary Purpose Advance Directives Advance Directive Response Recorded Date/ Time Advance Directives on File No November 01, 2022 10:33am Name of Medical Power of Barrel Leveler carly shawn November 01, 2022 10:33am Advance Directives Yes November 01 10:33am Living Will Yes November 01, 2022 10:33am Power of Barrel Leveler Yes November 01 10:33am Advance Directive Response Recorded Date/ Time Advance Directives on File No November 01, 2022 10:33am Name of Medical Power of Barrel Leveler carly shawn November 01, 2022 10:33am Advance Directives on File Yes [facility] 2022 11:13am Name of Medical Power of Barrel Leveler Jennifer Gonzalez December 24, 2022 11:13am Advance Directives Yes December 11:13am Living Will Yes December 24, 2022 11:13am Power of Barrel Leveler Yes December 11:13am Advance Directive Response Recorded Date/ Time Advance Directives on File Yes [facility] 2022 10:13am Name of Medical Power of Barrel Leveler Jennifer Lisa December 24, 2022 10:13am Advance Directives Yes December 10:13am Living Will Yes December 24, 2022 10:13am Power of Barrel Leveler Yes December 10:13am Advance Directive Response Recorded Date/ Time Advance Directives Yes December 11:13am Living Will Yes December 24, 2022 11:13am Power of Barrel Leveler Yes December 11:13am Advance Directive Response Recorded Date/ Time Advance Directives Yes December 11:13am Advance Directive Response Recorded Date/ Time Living Will Yes December 24, 2022 11:13am Do you have a Healthcare Power of Barrel Leveler? Yes December 24, 2022 11:13am Advance Directives Yes December 11:13am Advance Directive Response Recorded Date/ Time Do you have a Healthcare Power of Barrel Leveler? No February 13, 2025 7:02pm Advance Directives Yes December 10:13am Additional Source Comments Source Comments (unrecognize d section and content) In the event this informatio n is protected by the Federal Confidentiality of Alcohol and Drug Abuse Patient Records regulations: The Federal rules restrict any use of the information to criminally investigate or prosecute any alcohol or drug abuse patient.[facility] the event this information is protected by the Federal Confidentiality of Alcohol and Drug Abuse Patient Records regulations: The Federal rules restrict any use of the information to criminally investigate or prosecute any alcohol or drug abuse patient.[facility] the event this information is protected by the Federal Confidentiality of Alcohol and Drug Abuse Patient Records regulations: The Federal rules restrict any use of the information to criminally investigate or prosecute any alcohol or drug abuse patient.[facility] the event this information is protected by the Federal Confidentiality of Alcohol and Drug Abuse Patient Records regulations: The Federal rules restrict any use of the information to criminally investigate or prosecute any alcohol or drug abuse patient.[facility] the event this information is protected by the Federal Confidentiality of Alcohol and Drug Abuse Patient Records regulations: The Federal rules restrict any use of the information to criminally investigate or prosecute any alcohol or drug abuse patient.[facility] the event this information is protected by the Federal Confidentiality of Alcohol and Drug Abuse Patient Records regulations: The Federal rules restrict any use of the information to criminally investigate or prosecute any alcohol or drug abuse patient.[facility] the event this information is protected by the Federal Confidentiality of Alcohol and Drug Abuse Patient Records regulations: The Federal rules restrict any use of the information to criminally investigate or prosecute any alcohol or drug abuse patient.[facility] the event this information is protected by the Federal Confidentiality of Alcohol and Drug Abuse Patient Records regulations: The Federal rules restrict any use of the information to criminally investigate or prosecute any alcohol or drug abuse patient.[facility] the event this information is protected by the Federal Confidentiality of Alcohol and Drug Abuse Patient Records regulations: The Federal rules restrict any use of the information to criminally investigate or prosecute any alcohol or drug abuse patient.[facility] the event this information is protected by the Federal Confidentiality of Alcohol and Drug Abuse Patient Records regulations: The Federal rules restrict any use of the information to criminally investigate or prosecute any alcohol or drug abuse patient.[facility] the event this information is protected by the Federal Confidentiality of Alcohol and Drug Abuse Patient Records regulations: The Federal rules restrict any use of the information to criminally investigate or prosecute any alcohol or drug abuse patient.[facility] the event this information is protected by the Federal Confidentiality of Alcohol and Drug Abuse Patient Records regulations: The Federal rules restrict any use of the information to criminally investigate or prosecute any alcohol or drug abuse patient.[facility] the event this information is protected by the Federal Confidentiality of Alcohol and Drug Abuse Patient Records regulations: The Federal rules restrict any use of the information to criminally investigate or prosecute any alcohol or drug abuse patient.[facility] the event this information is protected by the Federal Confidentiality of Alcohol and Drug Abuse Patient Records regulations: The Federal rules restrict any use of the information to criminally investigate or prosecute any alcohol or drug abuse patient.[facility] the event this information is protected by the Federal Confidentiality of Alcohol and Drug Abuse Patient Records regulations: The Federal rules restrict any use of the information to criminally investigate or prosecute any alcohol or drug abuse patient.[facility]In the event this information is protected by the Federal Confidentiality of Alcohol and Drug Abuse Patient Records regulations: The Federal rules restrict any use of the information to criminally investigate or prosecute any alcohol or drug abuse patient.[facility] HospitalIn the event this information is protected by the Federal Confidentiality of Alcohol and Drug Abuse Patient Records regulations: The Federal rules restrict any use of the information to criminally investigate or prosecute any alcohol or drug abuse patient.[facility] HospitalIn the event this information is protected by the Federal Confidentiality of Alcohol and Drug Abuse Patient Records regulations: The Federal rules restrict any use of the information to criminally investigate or prosecute any alcohol or drug abuse patient.[facility]In the event this information is protected by the Federal Confidentiality of Alcohol and Drug Abuse Patient Records regulations: The Federal rules restrict any use of the information to criminally investigate or prosecute any alcohol or drug abuse patient.[facility] HospitalIn the event this information is protected by the Federal Confidentiality of Alcohol and Drug Abuse Patient Records regulations: The Federal rules restrict any use of the information to criminally investigate or prosecute any alcohol or drug abuse patient.[facility] Reason for Visit (unrecogniz ed section and content) Reason Comments New Patient Reason Comments Urge Urinary Incontinence UDS Reason Comments uds follow up Reason Comments FYI-No Action Needed Medication Problem Reason Comments Surgery Question Reason Comments Medication Problem Reason Comments Patient Question Reason Comments Orders Reason Comments Patient Question Reason Comments Yearly Exam Care Teams (unrecognized sec tion and content) Vacuum Drier Operator Relationship Specialty Start Date End Date Micah Díaz DO [address] [place] [address] PCP - General Family Practice 12/29/20 Lynn Christensen [address] [facility] [address] [place] [address] Physician Urology 07/24/21 Vacuum Drier Operator Relationship Specialty Start Date End Date Micah Díaz DO [address] [place] [address] [place], [place] [address] PCP - General Family Practice 12/29/20 Lynn Christensen [address] [facility] [address] [place] [address] Physician Urology 07/24/21 Vacuum Drier Operator Relationship Specialty Start Date End Date Micah Díaz DO [address] [place] [address] PCP - General Family Practice 12/29/20 Lynn Christensen [address] [place] [address] [place] [address] Physician Urology 07/24/21 Vacuum Drier Operator Relationship Specialty Start Date End Date Micah Díaz DO [address] [place] [address] PCP - General Family Practice 12/29/20 Lynn Christensen [address] [place] [address] [place] [address] Physician Urology 07/24/21 Vacuum Drier Operator Relationship Specialty Start Date End Date Micah Díaz DO [address] [place] [address] PCP - General Family Practice 12/29/20 Lynn Christensen [address] [place] [address] [place] [address] Physician Urology 07/24/21 Vacuum Drier Operator Relationship Specialty Start Date End Date Micah Díaz DO [address] [place] [address] PCP - General Family Practice 12/29/20 Lynn Christensen [address] [place] [address] [place] [address] Physician Urology 07/24/21 Vacuum Drier Operator Relationship Specialty Start Date End Date Micah Díaz [address] [place] [address] PCP - General Family Medicine 12/29/20 Lynn Christensen [address] [place] [address] [place] [address] Physician Urology 07/24/21 Vacuum Drier Operator Relationship Specialty Start Date End Date Micah Díaz DO [address] [place] [address] PCP - General Family Medicine 12/29/20 Lynn Christensen [address] [place] [address] [place] [address] Physician Urology 07/24/21 Vacuum Drier Operator Relationship Specialty Start Date End Date Micah Díaz DO [address] [place] [address] PCP - General Family Medicine 12/29/20 Lynn Christensen [address] [place] [address] [place] [address] Physician Urology 07/24/21 Vacuum Drier Operator Relationship Specialty Start Date End Date Micah Díaz DO [address] [place] [address] PCP - General Family Medicine 12/29/20 Lynn Christensen [address] [place] [address] [place] [address] Physician Urology 07/24/21 Team Status: Active Member Role Status Dates Dr. Micah Díaz DO Family Provider Active Dr. Micah Díaz DO Primary Care Provider Active Team Status: Inactive Member Role Status Dates Dr. Micah Díaz DO Primary Care Provider, Attendin g Provider Active Team Status: Inactive Member Role Status Dates Dr. Micah Díaz , DO Primary Care Prov ider, Attending Provider, [...] Díaz DO Primary Care Provider Active Dr. Lynn [...] Dr. Reginald Carey MD Attending Provider Active Vacuum Drier Operator Relationship Specialty Start Date End Date Micah Díaz DO [address] [address] PCP - General Family Medicine 12/29/20 Lynn Christensen [address] [place] [address] [place], [place] [address] Physician Urology 07/24/21 Team Status: Active Member Role Status Dates Dr. Micah Díaz , DO Primary Care Provider, Referrin g Provider Active Dr. Reginald Carey MD Attending Provider Active Team Status: Inactive Member Role Status Dates Dr. Micah Díaz , DO Primary Care Provider Active Dr. Matti Camarillo , DO Attending Provider, Referring Provider Active Vacuum Drier Operator Relationship Specialty Start Date End Date Micah Díaz DO [address] [place], [place] [address] PCP - General Family Medicine 12/29/20 Lynn Christensen [address] [place] [address] [place], [place] [address] Physician Urology 07/24/21 Team Status: Inactive Member Role Status Dates Dr. Micah Díaz , DO Primary Care Provider Active ELZBIETA KNOX , FLORESITA-C Attending Provider, Referring Pr ovider Active Dr. Matti Camarillo , DO Other Provider Active Vacuum Drier Operator Relationship Specialty Start Date End Date Micah Díaz DO [address] [place] [address] PCP - General Family Medicine 12/29/20 Lynn Christensen [address] [place] [address] [place], [place] [address] Physician Urology 07/24/21 Vacuum Drier Operator Relationship Specialty Start Date End Date Micah Díaz DO [address] [place] [address] PCP - General Family Medicine 12/29/20 Lynn Christensen MD [address] [place] [address] [place] [address] Physician Urology 07/24/21 Vacuum Drier Operator Relationship Specialty Start Date End Date Micah Díaz DO [address] [place] [address] PCP - General Family Medicine 12/29/20 Lynn Christensen MD [address] [place] [address] [place] [address] Physician Urology 07/24/21 Vacuum Drier Operator Relationship Specialty Start Date End Date Micah Díaz DO [address] [place] [address] PCP - General Family Medicine 12/29/20 Lynn Christensen MD [address] [place] [address] [place] [address] Physician Urology 07/24/21 Vacuum Drier Operator Relationship Specialty Start Date End Date Micah Díaz DO [address] [place] [address] PCP - General Family Medicine 12/29/20 Lynn Christensen MD [address] [place] [address] [place] [address] Physician Urology 07/24/21 Team Status: Inactive Member [...] 2024 End: July 20, 2024 Milka Mckenna DRUG DISCOVERY INFORMATICS SPECIALIST, DRUG DISCOVERY INFORMATICS SPECIALIST-C Attending Provider Active Start: July 20, 2024 End: July 20, 2024 Team Status: Inactive Member Role Status Dates Dr. Micah Díaz DO Primary Care Provider Active Start: July 22, 2024 End: July 22, 2024 Milka Mckenna DRUG DISCOVERY INFORMATICS SPECIALIST, DRUG DISCOVERY INFORMATICS SPECIALIST-C Attending Provider Active Start: July 22, 2024 End: July 22, 2024 Milka Mckenna NP, DRUG DISCOVERY INFORMATICS SPECIALIST-C Referring Provider Active Start: July 22, [...] Active Start: July 23, 2024 Milka Mckenna NP, DRUG DISCOVERY INFORMATICS SPECIALIST-C Attending Provider Active Start: July 23, [...] Active Member Role/Relationship Status Dates Dr. Micah Daíz DO Primary care physician Active Team Status: [...] Status: Inactive Member Role/Relationship Status Dates Dr. Micha Díaz DO Primary care physician Active Start: [...] Status: Inactive Member Role/Relationship Status Dates Dr. Miach Díaz DO Primary care physician Active Start: [...] 2025 End: February 02, 2025 Dr. Micah Díza DO Referring Provider Active Start: February 02, 2025 End: February 02, 2025 Dr. Lynn Christensen MD Attending physician Active Start: February 02, 2025 End: February 02, 2025 Team Status: Active Member Role/Relationship Status [...] February 02, 2025 End: February 02, 2025 Team Status: Inactive Member Role/Relationship Status Dates Dr. Micah Díaz DO Primary care physician Active Start: February 13, 2025 End: February 15, 2025 Dr. Reginald Zaldivar DO Emergency Departm ent Physician Active Start: February 13, 2025 End: February 15, 2025 Dr. Janett Smith MD Admitting physician Active Start: February 13, 2025 End: February 15, 2025 Dr. Janett Smith MD Attending physician Active Start: February 13, 2025 End: February 15, 2025 Team Status: Active Member Role/Relationship Status Dates Dr. Micah Díaz DO Primary care physician Active Start: February 14, 2025 Dr. Reginald Zaldivar DO Emergency Department Physician Active Start: February 14, 2025 Dr. Janett Smith MD Admitting physician Active Start: February 14, 2025 Dr. Janett Smith MD Nurse Practitioner Active Start: February 14, 2025 Dr. Irene Melgar MD Attending physician Active Start: February 14, 2025 Team Status: Active Member Role/Relationship Status Dates Dr. Micah Díaz DO Primary care physician Active Start: February 14, 2025 Dr. Reginald Zaldivar DO Emergency Department Physician Active Start: February 14, 2025 Dr. Janett Smith MD Admitting physician Active Start: February 14, 2025 Dr. Janett Smith MD Attending physician Active Start: February 14, 2025 Dr. Janett Smith MD Nurse Practitioner Active Start: February 14, 2025 Team Status: Active Member Role/Relationship Status Dates Dr. Micah Díaz DO Primary care physician Active Start: February 15, 2025 Dr. Reginald Zaldivar DO Emergency Department Physician Active Start: February 15, 2025 Dr. Janett Smith MD Admitting physician Active Start: February 15, 2025 Dr. Janett Smith MD Attending physician Active Start: February 15, 2025 Dr. Janett Smith MD Nurse Practitioner Active Start: February 15, 2025 Team Status: Inactive Member Role/Relationship Status Dates Dr. Micah Díaz DO Primary care physician Active Start: February 21, 2025 End: February 21, 2025 Dr. Micah Díaz DO Referring Provider Active Start: February 21, 2025 End: February 21, 2025 Dr. Lynn Christensen MD Attending physician Active Start: February 21, 2025 End: February 21, 2025 Goals (unrecognized section and content) Goals [...] section and content) DATE CREATED AUTHOR 04/04/2022 [facility] DATE CREATED AUTHOR AUTHOR'S ORGANIZ ATION 05/23/2024 [facility] DATE CREATED AUTHOR AUTHOR'S ORGANIZ ATION 02/22/2025 [facility] FOR RECORDS PERTAINING TO PATIENTS WHO [...] BE BASED ON THE PRIMARY CLINICAL RECORDS. [employer] provides no warranty or guarantee of the accuracy or completeness of information in this document.
== END | disposition home or self-care (01) ==
LOC: LAB 10:49
PROVIDERS: PCP Family Medicine; Referring Provider Family Medicine; Visit Provider Family Medicine
DX: I10 Essential (primary) hypertension (principal); E78.5 Hyperlipidemia, unspecified; E03.8 Other specified hypothyroidism; E06.3 Autoimmune thyroiditis; E55.9 Vitamin D deficiency, unspecified; M10.9 Gout, unspecified
CPT/HCPCS: 36415; 80053; 80061; 82306; 84439; 84443; 84550; 85025